=== PATIENT | male | born 1930 | race Caucasian/White ===

== ENCOUNTER 2016-07-25 10:16 | Observation (INO) ==
--- NOTE | 2016-07-25 10:37 | Emergency Department Note ---
Disposition Clinical Impression: Elevated INR, Hypokalemia, Elevated troponin I level, Acute on chronic renal failure Fall Qualifiers: Encounter type: initial encounter Qualified Code(s): W19.XXXA - Unspecified fall, initial encounter Disposition: Admitted As Inpatient Condition: Fair Time of Disposition: 13:00 Fall HPI - General Chief Complaint: ED Fall Stated Complaint: fall/back pain Time Seen by Provider: 07/25/16 10:20 Source: patient, EMS Mode of arrival: ambulatory Limitations: no limitations Nursing Notes Reviewed: Yes Vital Signs Reviewed: Yes - History of Present Illness HPI Narrative: 85-year-old male status post several falls. History of Coumadin, A. fib, has a pacemaker AV paced. Patient had a fall last week, on Thursday 6 days ago, struck his left flank. His try to help him up and he actually pulled her cane according to his home health aide. She then proceeded to fall on him. He did have another mechanical fall yesterday, this was unwitnessed, he states he slipped on the floor mat his bathroom. He landed striking his left flank, the same spot that was previously injured. His pain is 6 out of 10, hurts with movement, crampy and sharp, localized this to about the area of his 12th rib. He is on Coumadin has not reported any abdominal pain, no chest pain or shortness of breath. Pt Subjective Complaint: fall Onset (ago): day(s) Fall Witnessed: yes Place Fall Occurred: home Loss of Consciousness: none Prolonged Down Time?: no Symptoms Prior to Fall: none Location of injury: abdomen Severity: moderate Severity scale (1-10): 6 Quality: aching Associated symptoms (after fall): Reports: denies - Related Data Home Medications Medication Instructions Recorded Confirmed Atorvastatin [Lipitor] 40 mg PO HS 06/08/15 07/25/16 Gabapentin [Neurontin] 600 mg PO HS 06/08/15 07/25/16 Garlic 1,000 mg PO DAILY 06/08/15 07/25/16 Lisinopril [Zestril] 20 mg PO DAILY 06/08/15 07/25/16 Loratadine [Claritin] 10 mg PO DAILY PRN 06/08/15 07/25/16 Metoprolol [Lopressor] 50 mg PO BID 06/08/15 07/25/16 Multivitamin [Flintstones] 1 each PO DAILY 06/08/15 07/25/16 [place]-3S/Dha/Epa/Fish Oil [Fish 1 each PO DAILY 06/08/15 07/25/16 Oil 1,200 mg Softgel] Tamsulosin [Flomax] 0.4 mg PO BID 06/08/15 07/25/16 Montelukast [Singulair] 10 mg PO HS 11/05/15 07/25/16 Fluticasone Propionate Nasal 50 mcg NS DAILY 11/09/15 07/25/16 [Flonase] Latanoprost 1 drop BOTH EYES HS 11/28/15 07/25/16 Acetaminophen [Tylenol] 650 mg PO Q6HR PRN 02/11/16 07/25/16 Amlodipine Besylate 10 mg PO DAILY 06/12/16 07/25/16 Ceramides 1,3,6-11 [Cerave] 1 appl TP BID 06/12/16 07/25/16 Ferrous Sulfate 325 mg PO DAILY 06/12/16 07/25/16 Furosemide [Lasix] 80 mg PO BID 06/12/16 07/25/16 Hydroxyzine HCl 25 mg PO Q8H PRN 06/12/16 07/25/16 Warfarin [Coumadin] 2.5 mg PO SUTUTHSA 06/13/16 07/25/16 Warfarin [Coumadin] 5 mg PO MOWEFR 07/25/16 07/25/16 Previous Rx's Medication Instructions Recorded Isosorbide MONOnitrate (24 HR) 30 mg PO DAILY 30 Days 11/07/15 [Imdur] Allergies Allergy/AdvReac Type Severity Reaction Status Date / Time clopidogrel [From Plavix] Allergy Itching Verified 05/06/16 09:07 Cortisone Allergy Joint Pain Verified 05/06/16 09:07 Review of Systems: A 14 point ROS was obtained and was negative except as per below or as documented in the HPI. Constitutional: Denies: fever, chills, weakness, weight change Eyes: Denies: eye pain, eye discharge, vision change ENT: Denies: ear pain, throat pain, hearing loss, epistaxis, congestion, Cardiovascular: Denies: chest pain, palpitations, dyspnea on exertion, edema, syncope Respiratory: Denies: cough, dyspnea, wheezes, hemoptysis, stridor Gastrointestinal: Denies: abdominal pain, nausea, vomiting. diarrhea, constipation, hematemesis, hematochezia Genitourinary: Denies: urgency, dysuria, frequency, hematuria Musculoskeletal: Left flank pain,/left posterior rib pain Denies: neck pain, arthralgia, myalgia Integumentary: Denies: rash, abrasion, lesions Neurological: Denies: headache, weakness, numbness, paresthesias, confusion, abnormal gait Psychiatric: Denies: anxiety, depression, suicidal thoughts, homicidal thoughts , Endocrine: Denies: fatigue Hematological/Lymphatic: Denies: easy bleeding, easy bruising Allergic/Immunologic: Denies: facial swelling, urticaria All systems ED: reviewed and negative except as stated. Fall PMH - Past Medical History Medical history: Reports: atrial fibrillation, CHF, coronary artery disease, hyperlipidemia, hypertension, myocardial infarction, peripheral artery disease, renal disease, other Surgical history: Reports: coronary bypass (CABG), pacemaker/AICD, other Psychiatric history: Reports: no psych history - Social History Smoking Status: Never smoker Alcohol use: Reports: none Drug use: Reports: none Physical Exam General: alert and oriented, cachectic elderly male Head: NCAT, no lesions Eyes: sclera anicteric, conjunctiva normal, PERRLA bilaterally, EOMI Bilaterally Ears: normal inspection, external ear wnl Nose: nasal septum nondeviated, sinuses nontender Throat: good dentition, mucous membranes moist Neck: no lymphadenopathy, trachea midline no deviation, no JVD Resp: CTA bilaterally, no resp distress, symmetric chest rise, no wheezes, rales , or rhonchi bilaterally CV: Regular with PVCS,Pacemaker patent left chest ,, normal S1 and S2, no m/g/r , Pulses +2 Rad, +2 DP/PT Abdomen: Soft, NTND, no hepatosplenomegaly, no hernias, Negative Rovsing's sign , Negative Tatum's sign Back: normal inspection,+ttp left back pain, Negative CVA tenderness bilaterally Neuro: A&O3, CN II-XII grossly intact bilaterally, no motor or sensory deficits bilaterally, gait normal, GCS 15 [id number] Ext: +Left back pain localized to the 12th rib, no ecchymosis and deformity Psych: normal mood, normal affect Skin: No rashes, skin warm, dry, intact - General Limitations: no limitations General appearance: alert, in no apparent distress Course Vital Signs Temperature 97.7 F 07/25/16 10:18 Pulse Rate 60 07/25/16 10:18 Respiratory Rate 16 07/25/16 10:18 Blood Pressure 124/68 07/25/16 10:18 O2 Sat by Pulse Oximetry 96 07/25/16 10:18 Temperature 97.7 F 07/25/16 10:18 Pulse Rate 81 07/25/16 12:41 Respiratory Rate 18 07/25/16 14:13 Blood Pressure 116/71 07/25/16 14:13 O2 Sat by Pulse Oximetry 96 07/25/16 12:41 Oxygen Delivery Oxygen Delivery Room Air Fall - MDM Narrative Medical decision making narrative: 85-year-old male with fall, Coumadin coagulopathy, high elevated INR, hypokalemia, admitted to medicine service in stable condition - Differential Diagnosis Likely: syncope, traumatic injury, arrhythmia, assault, seizure - Medical Records Medical records reviewed: Yes I reviewed the patient's medical records. - Lab Data Lab results reviewed: Yes I reviewed the patient's lab results. Result diagrams: 07/25/16 11:40 07/25/16 11:40 Lab Results 07/25/16 07/25/16 07/25/16 Range/Units 11:40 11:40 11:40 WBC 6.3 (4.3-11.1) K/mcL RBC 3.76 L (4.19-5.50) M/mcL Hgb 10.5 L (12.9-16.9) g/dL Hct 31.5 L (37.5-50.1) % MCV 83.8 (83.0-100.0) fL MCH 27.9 L (28.0-33.3) pg MCHC 33.3 (31.6-35.5) g/dL RDW 17.2 H (11.5-14.5) % Plt Count 127 L (140-400) K/mcL MPV 12.1 (9.4-12.4) fL Immature Gran % 0.3 (0-4) % Seg Neutrophils % 77.9 % Lymphocytes % 9.7 % Monocytes % 9.2 % Eosinophils % 2.7 % Basophils % 0.2 % Neutrophils # 4.9 (1.6-8.9) K/mcL Lymphocytes # 0.6 (0.6-4.6) K/mcL Monocytes # 0.6 (0.0-1.3) K/mcL Eosinophils # 0.2 (0.0-0.6) K/mcL Basophils # 0.0 (0.0-0.2) K/mcL PT 74.9 H* (9.4-12.1) Seconds INR 6.5 H* APTT 52.7 H (26.0-36.0) Seconds Sodium 129 L (136-145) mEq/L Potassium 2.4 L* (3.5-4.5) mEq/L Chloride 84 L (98-109) mEq/L Carbon Dioxide 36 H (19-29) mEq/L BUN 101 H (8-26) mg/dL Creatinine 3.48 H (0.72-1.25) mg/dL Est GFR ( Amer) 20 L (> 60) Est GFR (Non-Af Amer) 17 L (> 60) BUN/Creatinine Ratio 29 H (6-26) Glucose 104 H (70-99) mg/dL POC Glucose (58-89) Calculated Osmolality 300 (280-300) Calcium 8.9 (8.6-10.8) mg/dL Troponin I (0-0.03) ng/mL 07/25/16 07/25/16 Range/Units 11:40 11:53 WBC (4.3-11.1) K/mcL RBC (4.19-5.50) M/mcL Hgb (12.9-16.9) g/dL Hct (37.5-50.1) % MCV (83.0-100.0) fL MCH (28.0-33.3) pg MCHC (31.6-35.5) g/dL RDW (11.5-14.5) % Plt Count (140-400) K/mcL MPV (9.4-12.4) fL Immature Gran % (0-4) % Seg Neutrophils % % Lymphocytes % % Monocytes % % Eosinophils % % Basophils % % Neutrophils # (1.6-8.9) K/mcL Lymphocytes # (0.6-4.6) K/mcL Monocytes # (0.0-1.3) K/mcL Eosinophils # (0.0-0.6) K/mcL Basophils # (0.0-0.2) K/mcL PT (9.4-12.1) Seconds INR APTT (26.0-36.0) Seconds Sodium (136-145) mEq/L Potassium (3.5-4.5) mEq/L Chloride (98-109) mEq/L Carbon Dioxide (19-29) mEq/L BUN (8-26) mg/dL Creatinine (0.72-1.25) mg/dL Est GFR ( Amer) (> 60) Est GFR (Non-Af Amer) (> 60) BUN/Creatinine Ratio (6-26) Glucose (70-99) mg/dL POC Glucose 108 H (58-89) Calculated Osmolality (280-300) Calcium (8.6-10.8) mg/dL Troponin I 0.15 H* (0-0.03) ng/mL - Radiology Data Radiology results reviewed: Yes I reviewed the patient's radiology results. Abdomen/Pelvis CT 07/25/16 10:33 IMPRESSION: No acute traumatic injuries identified. There is moderate ascites, cirrhosis, gallstones, atrophic right kidney. D/ / Chele Bansal MD / Chele Bansal MD Interpreting Provider: Chele Bansal MD Chest CT 07/25/16 10:33 IMPRESSION: No acute traumatic injuries identified. There is moderate ascites, cirrhosis, gallstones, atrophic right kidney. D/ / Chele Bansal MD / Chele Bansal MD Interpreting Provider: Chele Bansal MD Chest X-Ray 07/25/16 10:33 IMPRESSION: No acute cardiopulmonary disease D/ / Blane Fontanez MD / Blane Fontanez MD Interpreting Provider: Blane Fontanez MD Head CT 07/25/16 10:34 IMPRESSION: No acute intracranial abnormality. D/ / Prakash Puentes MD / Prakash Puentes MD Interpreting Provider: Prakash Puentes MD - EKG Data EKG attestation: Yes I reviewed and interpreted this EKG. EKG results narrative: 72 bpm MI 194 QRS 183 QTC 47 electronic atrial and ventricular paced. EKG shows normal: sinus rhythm Interpretation: no acute changes - Core Measures AMI Core Measures Followed: No Attestation Statement - Attestation Attestation: I examined this patient and my medical decision-making was reviewed with the [employer] COORDINATOR/PA/Advanced Practice Nurse/Resident Physician. I agree with the documented findings, disposition and treatment plan as described except to the extent set forth below. Patient to the emergency department with a chief complaint of a fall. Patient states she tripped over a rug. Complaining of pain in his back. Denies hitting his head or loss of consciousness. On exam he has tenderness over the left inferior ribs posteriorly. Abdomen firm. Nontender. Lungs clear. Alert and appropriate. Plan. The patient has a low potassium. He also has an elevated INR of 6. Likely observation. Imaging negative for any fractures or organ injury. Troponin elevated. No aspirin given secondary to the patient's elevated INR, fall, and potential for delayed bleeding.
[2016-07-25 12:07] LABS: Basophils % 0.2 %; Eosinophils # 0.2 K/mcL (0.0-0.6); Eosinophils % 2.7 %; Hematocrit 31.5 % (37.5-50.1); Hemoglobin 10.5 g/dL (12.9-16.9); Immature Granulocytes % 0.3 % (0-4); Lymphocytes # 0.6 K/mcL (0.6-4.6); Lymphocytes % 9.7 %; Mean Corpuscular HGB Conc 33.3 g/dL (31.6-35.5); Mean Corpuscular Hemoglobin 27.9 pg (28.0-33.3); Mean Corpuscular Volume 83.8 fL (83.0-100.0); Mean Platelet Volume 12.1 fL (9.4-12.4); Monocytes # 0.6 K/mcL (0.0-1.3); Monocytes % 9.2 %; Neutrophils # 4.9 K/mcL (1.6-8.9); Platelet Count 127 K/mcL (140-400); Red Blood Count 3.76 M/mcL (4.19-5.50); Red Cell Distribution Width 17.2 % (11.5-14.5); Segmented Neutrophils % 77.9 %
[2016-07-25 12:15] LABS: Activated Partial Thrombo Time 52.7 Seconds (26.0-36.0)
[2016-07-25 12:17] LABS: INR 6.5; Prothrombin Time 74.9 Seconds (9.4-12.1)
[2016-07-25 12:19] LABS: Calcium 8.9 mg/dL (8.6-10.8)
[2016-07-25 12:25] LABS: Potassium 2.4 mEq/L (3.5-4.5)
[2016-07-25] MEDS ORDERED: Naloxone 0.4 MG/ML INJ IVP PRN (16:29)
[2016-07-25] MEDS ORDERED: Acetaminophen 325 MG TABLET PO PRN (16:29)
[2016-07-25] MEDS ORDERED: Ondansetron 4 MG/2 ML VIAL IVP PRN (16:29)
[2016-07-25] MEDS ORDERED: Furosemide 40 MG TABLET PO SCH (17:00)
[2016-07-25 18:36] LABS: Potassium 3.3 mEq/L (3.5-4.5)
[2016-07-25 18:37] LABS: Calcium 8.7 mg/dL (8.6-10.8)
--- NOTE | 2016-07-25 18:48 | Internal Med History&Physical ---
Date of Encounter: 07/25/16 Time of Encounter: 16:00 Assessment and Plan (1) Frequent falls Current visit: Yes Status: Chronic Patient is at an increased risk of intracranial and other internal bleeds due to being on Coumadin and sustaining frequent falls. Physical therapy evaluation. Patient may need placement in a [facility] facility. Fall precautions. (2) Supratherapeutic INR Current visit: Yes Status: Acute Patient is noted to be on Coumadin for chronic atrial fibrillation. He does follow in Coumadin clinic and INR about 8 days back was 2.6. INR today is noted to be 6.5 with no overt bleeding. Hold off on vitamin K at this time and hold Coumadin. Continue to monitor INR. (3) Acute on chronic renal failure Current visit: Yes Status: Acute Patient is noted to have slight worsening of renal function, probably due to dehydration. Continue to monitor serum creatinine and avoid contrast at new nephrotoxic agents. He does have chronic kidney disease stage IV. (4) Elevated troponin I level Current visit: Yes Status: Acute This is likely due to demand ischemia, renal dysfunction and falls. Continue telemetry monitoring and treatment troponins at this time. (5) Hypokalemia Current visit: Yes Status: Acute Likely related to poor oral intake and diuretic use. Supplement with oral and IV potassium chloride and repeat potassium. (6) CHF (congestive heart failure) Current visit: Yes Status: Chronic Resume home meds. Qualifiers: Congestive heart failure type: systolic Congestive heart failure chronicity : chronic Qualified Code(s): I50.22 - Chronic systolic (congestive) heart failure (7) CKD (chronic kidney disease), stage IV Current visit: Yes Status: Chronic (8) CAD (coronary artery disease) Current visit: Yes Status: Chronic Qualifiers: Coronary Disease-Associated Artery/Lesion type: bypass graft [place] vs. transplanted heart: [place] heart Associated angina: with stable angina Qualified Code(s): I25.709 - Atherosclerosis of coronary artery bypass graft(s) , unspecified, with unspecified angina pectoris (9) HTN (hypertension) Current visit: Yes Status: Chronic Qualifiers: Hypertension type: essential hypertension Qualified Code(s): I10 - Essential (primary) hypertension (10) PAD (peripheral artery disease) Current visit: Yes Status: Chronic Internal Medicine - H&P: HPI Chief complaint: Frequent falls Admitted From: Emergency Dept Plans for Post Hospital Care: Home History of present illness: Mr. King is a 85 year old male with multiple medical problems was brought in by family due to recurrent frequent falls. Patient's home health aide reported that he fell down last week, his tried to help him when he accidentally grabbed her cane and she fell on him, and he hurt his left flank area. This morning he again had a mechanical fall by tripping over his rug and fell on the same site and reports severe pain in his left lower rib cage and flank area. He sustained some bruising on his left arm and forearm but no overt bleeding. No reported head trauma, blurred vision, nausea, vomiting, loss of consciousness. He is noted to be on Coumadin for atrial fibrillation with a high INR. He is able to ambulate with a cane and walker as needed, at baseline. Past Med Surg Social Fam HX - Past Medical History Medical history: atrial fibrillation, CHF, coronary artery disease, hyperlipidemia, hypertension, myocardial infarction, peripheral artery disease, renal disease, other Psychiatric history: no psych history - Past Surgical History Surgical History: coronary bypass (CABG), pacemaker/AICD, other - Social History Smoking Status: Never smoker Smokeless Tobacco Status: No Alcohol use: none Drug use: none Occupational status: retired Current living situation: Home, With Family Activity Level: Uses cane/walker Recent Out of Country Travel Within the Last 8 Weeks: No Exposure or Possible Exposure to Illness During Travel: No - Family History Father History Unknown: Yes Living Status: Hx Family Cardiac Disorders: Yes Hx Family Endocrine Disorder: Yes Internal Medicine - H&P: Meds Atorvastatin [Lipitor] 40 mg PO HS 06/08/15 [History] Gabapentin [Neurontin] 600 mg PO HS 06/08/15 [History] Garlic 1,000 mg PO DAILY 06/08/15 [History] Lisinopril [Zestril] 20 mg PO DAILY 06/08/15 [History] Loratadine [Claritin] 10 mg PO DAILY PRN 06/08/15 [History] Metoprolol [Lopressor] 50 mg PO BID 06/08/15 [History] Multivitamin [Flintstones] 1 each PO DAILY 06/08/15 [History] [place]-3S/Dha/Epa/Fish Oil [Fish Oil 1,200 mg Softgel] 1 each PO DAILY 06/08/15 [ History] Tamsulosin [Flomax] 0.4 mg PO BID 06/08/15 [History] Montelukast [Singulair] 10 mg PO HS 11/05/15 [History] Isosorbide MONOnitrate (24 HR) [Imdur] 30 mg PO DAILY 30 Days 11/07/15 [Rx] Fluticasone Propionate Nasal [Flonase] 50 mcg NS DAILY 11/09/15 [History] Latanoprost 1 drop BOTH EYES HS 11/28/15 [History] Acetaminophen [Tylenol] 650 mg PO Q6HR PRN 02/11/16 [History] Amlodipine Besylate 10 mg PO DAILY 06/12/16 [History] Ceramides 1,3,6-11 [Cerave] 1 appl TP BID 06/12/16 [History] Ferrous Sulfate 325 mg PO DAILY 06/12/16 [History] Furosemide [Lasix] 80 mg PO BID 06/12/16 [History] Hydroxyzine HCl 25 mg PO Q8H PRN 06/12/16 [History] Warfarin [Coumadin] 2.5 mg PO SUTUTHSA 06/13/16 [History] Warfarin [Coumadin] 5 mg PO MOWEFR 07/25/16 [History] Allergies clopidogrel [From Plavix] Allergy (Verified 05/06/16 09:07) Itching Cortisone Allergy (Verified 05/06/16 09:07) Joint Pain All Systems PM: A 10-system review of systems was performed and is negative for pertinent findings except as documented above in the HPI. - Constitutional Constitutional: no chills, no fever(s), no night sweats - EENT Eyes: no change in vision, no discharge, no pain, no photophobia Ears: no ear discharge, no ear pain, no tinnitus Nose, mouth and throat: no dysphagia, no nasal discharge, no neck pain, no sore throat - Cardiovascular Cardiovascular ROS IM: no chest pain, no diaphoresis, no dyspnea, no lightheadedness, no palpitations, no syncope - Respiratory Respiratory: no cough, no dyspnea, no wheezing, no excessive phlegm production - Gastrointestinal Gastrointestinal: no abdominal pain, no diarrhea, no hematemesis, no hematochezia, no melena, no nausea, no vomiting - Musculoskeletal Musculoskeletal ROS IM: no numbness, no tingling - Integumentary Integumentary IM: no rash, no unusual bruising - Neurological Neurological ROS: frequent falls - Hematologic/Lymphatic Hematologic/Lymphatic: no easy bruising - Constitutional Vitals: Temp Pulse Resp BP Pulse Ox 97.2 F L 59 16 127/60 98 07/25/16 15:35 07/25/16 15:35 07/25/16 15:35 07/25/16 15:35 07/25/16 15:35 General appearance: Present: A&O X 2, answers questions appropriately (Very hard of hearing but is oriented) - Head Head exam: Present: atraumatic, normocephalic - Neck Neck exam general surgery: Present: supple, trachea midline. Absent: lymphadenopathy - Respiratory Respiratory exam: Present: CTAB. Absent: accessory muscle use, rales, rhonchi, wheezes Additional comments: pigeon chest - Cardiovascular Cardiovascular exam: Present: irregular rhythm, +S1, +S2. Absent: diastolic murmur, gallop, rubs, systolic murmur - GI/Abdominal GI/Abdominal exam: Present: normal bowel sounds, soft (Nontender and nondistended), no peritoneal signs. Absent: distended, tenderness - Extremities Exam Extremities exam: Present: pedal edema, warm, radial pulses palpable and symetrical. Absent: calf tenderness, cyanotic Additional comments: Ecchymosis and contusion on left lateral arm and left forearm below the elbow - Neurological Exam Neurological exam: Present: CN II-XII intact, oriented X3, strengths equal and symetr throughout (Diffusely decreased bilateral lower extremities). Absent: pronater drift, facial droop, speech deficit - Skin Skin exam: Present: dry, intact Internal Med - H&P Results - Labs CBC & Chem 7: 07/26/16 07:02 07/25/16 18:12 Labs: BMP 07/25/16 18:12 Sodium 129 L Potassium 3.3 L Chloride 84 L Carbon Dioxide 35 H BUN 100 H Creatinine 3.44 H Glucose 126 H Calcium 8.7 Cardiac Enzymes 07/25/16 Range/Units 17:13 Troponin I 0.13 H* (0-0.03) ng/mL - EKG Data -: EKG Interpreted by Myself - EKG Data Prior EKG available for review: yes When compared to previous EKG: there is no significant change EKG comments: 07/26/16 08:17 Atrial and ventricular paced rhythm
[2016-07-25] MEDS: Gabapentin 300 MG CAPSULE PO SCH (22:00)
[2016-07-25] MEDS: CERAMIDES TP SCH (22:00)
[2016-07-25] MEDS: Latanoprost 2.5 ML BOTTLE BOTH EYES SCH (22:01)
[2016-07-26 07:29] LABS: Basophils % 0.3 %; Eosinophils # 0.1 K/mcL (0.0-0.6); Hematocrit 31.4 % (37.5-50.1); Hemoglobin 10.9 g/dL (12.9-16.9); Immature Granulocytes % 0.3 % (0-4); Lymphocytes # 0.7 K/mcL (0.6-4.6); Lymphocytes % 10.9 %; Mean Corpuscular HGB Conc 34.7 g/dL (31.6-35.5); Mean Corpuscular Hemoglobin 28.8 pg (28.0-33.3); Mean Corpuscular Volume 83.1 fL (83.0-100.0); Mean Platelet Volume 12.6 fL (9.4-12.4); Monocytes # 0.6 K/mcL (0.0-1.3); Monocytes % 9.1 %; Platelet Count 126 K/mcL (140-400); Red Blood Count 3.78 M/mcL (4.19-5.50); Red Cell Distribution Width 17.2 % (11.5-14.5); Segmented Neutrophils % 77.4 %
[2016-07-26 08:03] LABS: INR 5.6; Prothrombin Time 63.2 Seconds (9.4-12.1)
[2016-07-26] MEDS ORDERED: *HR* Phytonadione 5 MG TABLET PO ONE (08:08)
[2016-07-26] MEDS ORDERED: 0.9 % Sodium Chloride 1,000 ML IVC SCH (08:15)
[2016-07-26] MEDS: Multivit/Ca/Min/Fe/FA 1 TAB TABLET PO SCH (08:17)
[2016-07-26] MEDS: Fluticasone Propionate Nasal 50 MCG/SPRAY BOTTLE NS SCH (08:18)
[2016-07-26] MEDS: CERAMIDES TP SCH ×2 (08:19→21:06)
[2016-07-26] MEDS: DHA PO SCH (08:19)
[2016-07-26] MEDS: OMEGA PO SCH (08:19)
[2016-07-26] MEDS: EPA PO SCH (08:19)
[2016-07-26] MEDS: FISH OIL PO SCH (08:19)
--- NOTE | 2016-07-26 08:22 | Internal Med Progress Note ---
Date of Encounter: 07/26/16 Time of Encounter: 08:00 - Assessment and plan (1) Acute on chronic renal failure Current Visit: Yes Status: Acute Assessment and plan: due to dehydration decrease oral intake, but also concern about hepato renal syndrome pt has hx of cirrhosis , will try fluid challenge and albumine, check UA renal ultrasound urinary protein and creatinine ratio, avoid hypotension nephrotoxic drugs (2) Supratherapeutic INR Current Visit: Yes Status: Acute Assessment and plan: no signs of active GI bleeding hold coumadin give vitamin K , believe pt is not a coumadin due to fall risk and end stage liver disease (3) Afib Current Visit: Yes Status: Chronic Assessment and plan: s/p pacemaker rate control , check echo to evaluate LVF Qualifiers: Atrial fibrillation type: permanent Qualified Code(s): I48.2 - Chronic atrial fibrillation (4) Cirrhosis Current Visit: Yes Status: Chronic Assessment and plan: unknown ethiology check hepatitis panel, FLP, Hemochromatosis Qualifiers: Hepatic cirrhosis type: unspecified hepatic cirrhosis Qualified Code(s): K74.60 - Unspecified cirrhosis of liver (5) Encephalopathy Current Visit: Yes Status: Chronic Assessment and plan: probable hepatic start lactulose/ rifaximin, follow ammonia level - Time Spent With Patient 25 - 35 minutes - Subjective Interval history: Pt confused , but alert - Constitutional Vitals: Temp Pulse Resp BP Pulse Ox 97.2 F L 59 14 118/67 95 07/26/16 07:36 07/26/16 07:36 07/26/16 07:36 07/26/16 07:36 07/26/16 07:36 General appearance: Present: cachectic, A&O X 2, answers questions appropriately (Very hard of hearing but is oriented) - Respiratory Respiratory exam: Present: decreased breath sounds - Cardiovascular Cardiovascular exam: Present: irregular rhythm Additional comments: OMAR 2/6 in RUSB - GI/Abdominal GI/Abdominal exam: Present: hepatomegaly, soft, splenomegaly Additional comments: + asciitis - Extremities Exam Additional comments: edema ++ - Neurological Exam Neurological exam: Present: alert Additional comments: no focal deficits but pt oriented to person only Internal Medicine: Result - Labs CBC & Chem 7: 07/26/16 07:02 07/25/16 18:12 Labs: Short CBC 07/26/16 Range/Units 07:02 WBC 6.4 (4.3-11.1) K/mcL Hgb 10.9 L (12.9-16.9) g/dL Hct 31.4 L (37.5-50.1) % Plt Count 126 L (140-400) K/mcL Neutrophils # 5.0 (1.6-8.9) K/mcL BMP 07/25/16 18:12 Sodium 129 L Potassium 3.3 L Chloride 84 L Carbon Dioxide 35 H BUN 100 H Creatinine 3.44 H Glucose 126 H Calcium 8.7 Cardiac Enzymes 07/25/16 07/25/16 07/26/16 Range/Units 17:13 23:14 07:02 Troponin I 0.13 H* 0.14 H* 0.14 H* (0-0.03) ng/mL - ABG Interpretation ABG results: PT/INR, D-dimer PT 63.2 Seconds (9.4-12.1) H* 07/26/16 07:02 Consult Discharge Plan - Plan Referrals: Roberta Berrios MD [Primary Care Provider] -
[2016-07-26] MEDS: 0.9 % Sodium Chloride 1,000 ML IVC SCH ×2 (08:37→19:00)
[2016-07-26] MEDS ORDERED: amLODIPine 5 MG TABLET PO SCH (09:00)
[2016-07-26] MEDS ORDERED: Isosorbide MONOnitrate (24 HR) 30 MG TAB.ER.24H PO SCH (09:00)
[2016-07-26 09:03] LABS: Bilirubin,Urine Negative (Negative); Blood,Urine Small (Negative); Clarity,Urine Clear (Clear); Color,Urine Yellow (Yellow); Glucose,Urine (UA) Normal (Normal); Ketones,Urine Negative (Negative); Leukocyte Esterase,Urine Trace (Negative); Nitrite,Urine Negative (Negative); Protein,Urine 30 mg/dL (Neg-Trace); Specific Gravity,Urine 1.011 (1.010-1.025); Urobilinogen,Urine Normal (Normal)
[2016-07-26 09:06] LABS: Bacteria,Urine None Seen per hpf (None-Few); Hyaline Casts,Urine None Seen per lpf (None-Few); Squamous Epithelial Cell,Urine Moderate per lpf (None-Few)
[2016-07-26 09:18] LABS: Protein/Creatinine Ratio,Urine 0.34 mg/mg (0-0.20)
[2016-07-26 09:30] LABS: Hepatitis B Surface Antigen Nonreactive (Nonreactive)
[2016-07-26] MEDS: Lactulose Oral Soln 20 GM/30 ML UDC PO SCH ×2 (11:09→21:00)
--- NOTE | 2016-07-26 13:40 | Venous Imaging Report ---
LE Venous Duplex Patient Name:Roman King Order Number:[id number] Procedure Date:07/26/2016 Date:2Age:85 yrs Gender:Male Location:[facility] Room #: 2A11 Cruise Agent:Nedra Miller Referring MD:Juanita Kim MD credit card associate:Roberta Berrios MD Reading MD:Manoj Renae MD Primary Indications:DVT Secondary Indications: Impressions: Left lower extremity: normal superficial and deep exam. Recommendations: After imaging the patient returned to their room. Findings Venous Duplex Results: Left: Venous imaging of the lower extremity reveals full patency and normal vessel compressibility of the left distal iliac, left common femoral, left superficial femoral, left popliteal, left posterior tibial, left peroneal, left great saphenous and left lesser saphenous. Doppler signals in the evaluated veins were normal. Prior Study: No prior study available for comparison. Lower Extremity Venous Duplex Side Vein Compress Spontaneous Flow Augment Diameter (cm) Depth (cm) Left Distal Iliac Normal Yes Phasic Yes Left Common Femoral Normal Yes Phasic Yes Left Superficial Femoral Normal Yes Phasic Yes Left Popliteal Normal Yes Phasic Yes Left Posterior Tibial Normal Yes Phasic Yes Left Peroneal Normal Yes Phasic Yes Left Great Saphenous Normal Yes Phasic Yes Left Lesser Saphenous Normal Yes Phasic Yes Updated by Manoj Renae MD on 07/26/2016 1:34:19 PM electronically signed on 07/26/2016 1:34:34 PM with status of Final
--- NOTE | 2016-07-26 14:28 | ECHO - Doppler Report ---
Echocardiogram Name: Roman King Date of Study: 07/26/2016 Date: 1930 Ht: 75.0 in Medical Record#: [id number] Age: 85 Wt: 197.0 lb Gender: Male BSA: 2.18 Order #: [id number] Location: [facility] Room #: 2A11 Reading Physician: Erin Cleaning DO Final Assembly Worker: Nedra Miller Ordering Physician: Juanita Kim MD Primary Physician: Roberta Berrios MD Indications: Shortness of breath Impressions: Paced rhythm with occasional PVCs. LV systolic function is moderately reduced, EF 35%. Unable to fully evaluate wall motion due to PVCs. RV is moderate to severely dilated with mild reduction in function. Similar in appearance to most recent echo. Moderate to severe TR by color flow. Moderate mitral regurgitation. Mild aortic regurgitation. Suboptimal TR gradient to estimate pulmonary hypertension. Left Ventricular Wall Motion: Rest Echo Findings The apex, apical inferior, mid inferior, basal inferior, apical anterior, mid anterior, basal anterior, apical septal, mid inferior septal, basal inferior septal, apical lateral, mid anterior lateral, basal anterior lateral, mid anterior septal, mid inferior lateral, basal anterior septal and basal inferior lateral eckert were hypokinetic. Findings: Study Quality * Technically sub-optimal due to poor echocardiographic windows. ECG Findings * Paced rhythm, ventricular ectopy. Left Ventricle * Indeterminate diastolic function. * LV function visually appears moderate reduced, EF 35%. * LV size and wall thickness are normal. Left Atrium * Severely dilated left atrium. Mitral Valve * Moderate mitral regurgitation. * Moderate mitral annular calcification * Mildly calcified mitral valve leaflets. * No mitral stenosis. Aortic Valve * Trileaflet aortic valve. * Mildly calcified aortic valve leaflets. * No aortic stenosis. * Mild aortic regurgitation. Tricuspid Valve * Tricuspid valve not well visualized. * Moderate-severe tricuspid regurgitation. Pulmonic Valve * Pulmonic valve is not well visualized. * No pulmonic stenosis. * Mild-moderate pulmonic regurgitation. Pulmonary Artery * Pulmonary artery not well visualized. Right Ventricle * Dilated RV with mild reduction in function. Right Atrium * Severely dilated right atrium. Interatrial Septum * Interatrial septum not well evaluated. IVC * The IVC is not well evaluated. History Hypertension Hypercholesteremia Family History of CAD History of CAD/PTCA Myocardial Infarction Coronary Artery Bypass Graft Congestive Heart Failure Pacer/ICD Implant Valvular Disease 02/11/2016 a Previous Echo was performed. Measurements: BP: 118/ 67 2D Normal Values IVSd: .99 cm 0.6 - 1.0 cm LVIDd: 5.23 cm 3.7 - 5.6 cm LVPWd: 1.10 cm 0.6 - 1.1 cm LVIDs: 3.21 cm 1.5 - 3.6 cm AO: 3.10 cm < 4.0 cm LA: 5.80 cm 2.0 - 4.0cm %FS: 38.60 cm >25 % LVOT Diam: 3.30 cm LA volume: 65 Mitral Valve Peak E:1.01 m/sec Peak E' Lat Sanjeev:11.3 cm/s Peak E' Med Sanjeev:3.01 cm/s E/E' Lat Ratio:8.9 E/E' Med Ratio:33.6 Aortic Valve AI pressure Half-time: 701.00 msec Tricuspid Valve TV Regurg Peak Grad: 10.00mmHg TV Regurg Peak Sanjeev: 1.61m/sec Updated by Erin Cleaning on 07/26/2016 12:37:53 PM electronically signed on 07/26/2016 2:23:02 PM with status of Final Wall Motion [place]: 1=Normal, 2=Hypokinesis, 3=Akinesis, 4=Dyskinesis, 5=Aneurysmal, 6=Hyperkinetic, X=Not Visualized (Blank)=Missing
[2016-07-26] MEDS: Gabapentin 300 MG CAPSULE PO SCH (21:00)
[2016-07-26] MEDS: Latanoprost 2.5 ML BOTTLE BOTH EYES SCH (21:05)
[2016-07-27] MEDS: 0.9 % Sodium Chloride 1,000 ML IVC SCH (04:46)
[2016-07-27 05:50] LABS: Albumin 2.4 g/dL (3.5-5.0); Albumin/Globulin Ratio 0.5 (1.1-2.2); Bilirubin,Total 2.7 mg/dL (0.2-1.2); Calcium 8.3 mg/dL (8.6-10.8); Globulin 4.5 g/dL (2.4-3.5); Potassium 2.9 mEq/L (3.5-4.5); Total Protein 6.9 g/dL (6.0-8.3)
--- NOTE | 2016-07-27 07:57 | Internal Med Progress Note ---
Date of Encounter: 07/27/16 Time of Encounter: 07:55 - Assessment and plan (1) Hepatic encephalopathy Current Visit: Yes Status: Acute Assessment and plan: Cirrhosis of unknown etiology. Continues to have worsening mental status along with worsening serum ammonia levels. Increase lactulose to 3 times a day dosing and monitor closely. Supportive care and fall precautions. (2) Frequent falls Current Visit: Yes Status: Chronic Assessment and plan: Physical therapy evaluation pending, patient likely requires placement in extended care facility. Have been trying to reach patient's son to confirm CODE STATUS but unsuccessful so far. Patient confirmed to me at the time of admission That he wanted to be DNR/DNI. (3) Hematuria Current Visit: Yes Status: Acute Assessment and plan: Hematuria due to traumatic Guerrero removal by the patient due to hepatic encephalopathy. Continue to pass blood tinged urine in 2 Guerrero bag along with passing blood clots at the urethral meatus. Consulted urology, will follow-up recommendations. No evidence of clot obstruction at this time. Treat underlying supratherapeutic INR with vitamin K. Monitor hemoglobin closely. (4) Supratherapeutic INR Current Visit: Yes Status: Acute Assessment and plan: INR noted to be improving, received a dose of vitamin K. However, throughout the day he should continue to have hematuria along with passing blood clots from urethral meatus. We will give another dose of vitamin K 2.5 mg. (5) Acute on chronic renal failure Current Visit: Yes Status: Chronic Assessment and plan: Less likely hepatorenal syndrome. Could be related to medications including diuretics, CALVIN inhibitor. Nephrology consult for further management. We will hold Lasix, CALVIN inhibitor for now. Will also hold IV albumin. (6) Elevated troponin I level Current Visit: Yes Status: Acute Assessment and plan: Troponin level noted to be trending down. Likely related to demand ischemia and fall. (7) Hypokalemia Current Visit: Yes Status: Acute Assessment and plan: Supplement with oral potassium chloride, continue to monitor. (8) Cirrhosis of liver with ascites Current Visit: Yes Status: Chronic Qualifiers: Hepatic cirrhosis type: unspecified hepatic cirrhosis Qualified Code(s): K74.60 - Unspecified cirrhosis of liver (9) CHF (congestive heart failure) Current Visit: Yes Status: Chronic Assessment and plan: Repeat echocardiogram shows worsening ejection fraction of 35% along with right ventricular dilation, moderate to severe tricuspid regurgitation, moderate mitral regurgitation and pulmonary hypertension. 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 Qualifiers: Congestive heart failure type: systolic Congestive heart failure chronicity : chronic Qualified Code(s): I50.22 - Chronic systolic (congestive) heart failure (10) CKD (chronic kidney disease), stage IV Current Visit: Yes Status: Chronic (11) CAD (coronary artery disease) Current Visit: Yes Status: Chronic Qualifiers: Coronary Disease-Associated Artery/Lesion type: bypass graft [place] vs. transplanted heart: mi'kmaq heart Associated angina: with stable angina Qualified Code(s): I25.708 - Atherosclerosis of coronary artery bypass graft(s) , unspecified, with other forms of angina pectoris (12) HTN (hypertension) Current Visit: Yes Status: Chronic Qualifiers: Hypertension type: essential hypertension Qualified Code(s): I10 - Essential (primary) hypertension (13) PAD (peripheral artery disease) Current Visit: Yes Status: Chronic - Subjective Interval history: Noted to be drowsy, confused and unable to answer much; significant change since I saw him at admission; lying in bed; Guerrero noted to have blood-tinged urine; - Constitutional Vitals: Temp Pulse Resp BP Pulse Ox 97.3 F L 62 18 109/56 96 07/27/16 07:17 07/27/16 07:17 07/27/16 07:17 07/27/16 07:17 07/27/16 07:17 General appearance: Present: A&O X 0 (lethargic and somnolent) - Head Head exam: Present: atraumatic, normocephalic - Neck Neck exam general surgery: Present: supple, trachea midline. Absent: lymphadenopathy - Respiratory Respiratory exam: Present: decreased breath sounds (B/L bases). Absent: accessory muscle use, rales, rhonchi, wheezes - Cardiovascular Cardiovascular exam: Present: irregular rhythm, +S1, +S2. Absent: diastolic murmur, gallop, rubs, systolic murmur - GI/Abdominal GI/Abdominal exam: Present: distended, normal bowel sounds, soft (ascites noted , no tenderness), no peritoneal signs. Absent: tenderness - Extremities Exam Extremities exam: Present: pedal edema (worsening 3+ pedal edema, pitting, mainly in left LE, upto hip), warm, radial pulses palpable and symetrical. Absent: calf tenderness, cyanotic - Neurological Exam Neurological exam: Present: altered, no focal deficits. Absent: pronater drift , facial droop, speech deficit - Skin Skin exam: Present: dry, intact Internal Medicine: Result - Labs CBC & Chem 7: 07/28/16 04:06 07/28/16 04:06 Labs: BMP 07/27/16 05:27 Sodium 129 L Potassium 2.9 L Chloride 87 L Carbon Dioxide 28 BUN 102 H Creatinine 3.30 H Glucose 123 H Calcium 8.3 L Liver Function 07/27/16 Range/Units 05:27 Total Bilirubin 2.7 H (0.2-1.2) mg/dL AST 70 H (5-34) Units/L ALT 23 (0-55) Units/L Alkaline Phosphatase 147 H (38-126) Units/L Albumin 2.4 L (3.5-5.0) g/dL Urine 07/26/16 Range/Units 08:45 Urine Color Yellow (Yellow) Urine Clarity Clear (Clear) Urine pH 7.0 (5.0-8.0) pH Units Ur Specific [place] 1.011 (1.010-1.025) Urine Protein 30 H (Neg-Trace) mg/dL Urine Glucose (UA) Normal (Normal) mg/dL - ABG Interpretation ABG results: PT/INR, D-dimer PT 63.2 Seconds (9.4-12.1) H* 07/26/16 07:02 - Impressions Impressions Retroperitoneum Ultrasound 07/26/16 09:30 IMPRESSION: 1. Atrophic right kidney with compensatory hypertrophy of the left. 2. No evidence of hydronephrosis peer D/ / Jacky Del Castillo MD / Jacky Del Castillo MD Interpreting Provider: Jacky Del Castillo MD Consult Discharge Plan - Plan Instructions: Heart Failure (DC) Referrals: Paola Rushing, CRITICAL CARE EDUCATOR [Advanced Practice Nurse] - 08/04/16 11:00 am
[2016-07-27 08:22] LABS: Hematocrit 32.5 % (37.5-50.1); Hemoglobin 10.8 g/dL (12.9-16.9); Immature Platelets 7.3 % (1.1-6.1); Mean Corpuscular HGB Conc 33.2 g/dL (31.6-35.5); Mean Corpuscular Hemoglobin 28.3 pg (28.0-33.3); Mean Corpuscular Volume 85.3 fL (83.0-100.0); Mean Platelet Volume 13.3 fL (9.4-12.4); Platelet Count 116 K/mcL (140-400); Red Blood Count 3.81 M/mcL (4.19-5.50); Red Cell Distribution Width 17.6 % (11.5-14.5)
[2016-07-27 08:23] LABS: Lymphocytes # 0.6 K/mcL (0.6-4.6)
[2016-07-27] MEDS: Lactulose Oral Soln 20 GM/30 ML UDC PO SCH ×3 (08:32→21:31)
[2016-07-27] MEDS: Potassium Chloride Elixir 20 MEQ/15 ML UDC PO SCH ×2 (08:32→13:24)
[2016-07-27] MEDS: Multivit/Ca/Min/Fe/FA 1 TAB TABLET PO SCH (08:32)
[2016-07-27] MEDS: Fluticasone Propionate Nasal 50 MCG/SPRAY BOTTLE NS SCH (08:33)
[2016-07-27] MEDS: CERAMIDES TP SCH ×2 (08:33→21:32)
[2016-07-27] MEDS: OMEGA PO SCH (08:34)
[2016-07-27] MEDS: FISH OIL PO SCH (08:34)
[2016-07-27] MEDS: EPA PO SCH (08:34)
[2016-07-27] MEDS: DHA PO SCH (08:34)
[2016-07-27 08:49] LABS: Monocytes # 0.6 K/mcL (0.0-1.3); Neutrophils # 6.3 K/mcL (1.6-8.9); Platelet Estimate Slight Decrease (Normal)
[2016-07-27 08:50] LABS: Acanthocytes 1+ (Not Present); Hypochromasia Present (Not Present); Ovalocytes 1+ (Not Present); Polychromasia 1+ (Not Present); Target Cells 1+ (Not Present)
[2016-07-27 09:32] LABS: INR 3.6; Prothrombin Time 40.1 Seconds (9.4-12.1)
--- NOTE | 2016-07-27 12:18 | Nephrology Consult Note ---
Date of Encounter: 07/27/16 Time of Encounter: 12:13 Assessment and Plan (1) Acute on chronic renal failure Current Visit: Yes Status: Acute Patient with acute on chronic renal failure versus progression of his chronic renal failure. Baseline creatinine is around 3.0. At this time his creatinine seems to be trending back to baseline. Agree with holding diuretics and CALVIN inhibitor at this time. He will need cautious diuresis was his creatinine stabilizes. Avoid nephrotoxic agents and adjust his medications for renal function. I agree that he likely does not need albumin at this time. (2) Elevated troponin I level Current Visit: Yes Status: Acute We will defer to the primary team and cardiology. (3) CHF (congestive heart failure) Current Visit: Yes Status: Chronic Patient with volume overload state. He will need diuresis once his renal function has stabilized. Qualifiers: Congestive heart failure type: systolic Congestive heart failure chronicity : chronic Qualified Code(s): I50.22 - Chronic systolic (congestive) heart failure (4) Frequent falls Current Visit: Yes Status: Chronic We will defer to primary team. Consider PT/OT if not already ordered. (5) HTN (hypertension) Current Visit: Yes Status: Chronic Current blood pressures on the low side. I agree with holding antihypertensive medication at this time. Blood pressure medications can be reintroduced was his blood pressure starts to rise. Qualifiers: Hypertension type: essential hypertension Qualified Code(s): I10 - Essential (primary) hypertension History of Present Illness - Reason for Consult Consult date: 07/27/16 Acute Kidney Injury, Chronic Kidney Disease - Chief Complaint Frequent falls - History of Present Illness Mr. King is an 85 yo man with a history of CKD who presnts with frequent falls. History is obtained from the medical records as the patient is in deep slumber and difficult to awaken. Per records the patient presented with frequent falls and volume overload state. He was found to have a rise in his creatinine as well. Per previous documentation patient has CKD 4 with a baseline creatinine around 2.7 - 3.0. He was previously seen in the hospital by Dr. Owen. Past Med Surg Social Fam HX - Past Medical History Medical history: atrial fibrillation, CHF, coronary artery disease, hyperlipidemia, hypertension, myocardial infarction, peripheral artery disease, renal disease, other Psychiatric history: no psych history - Past Surgical History Surgical History: coronary bypass (CABG), pacemaker/AICD, other - Social History Smoking Status: Never smoker Smokeless Tobacco Status: No Alcohol use: none Drug use: none - Family History Father History Unknown: Yes Living Status: Hx Family Cardiac Disorders: Yes Hx Family Endocrine Disorder: Yes Medications and Allergies Atorvastatin [Lipitor] 40 mg PO HS 06/08/15 [History] Gabapentin [Neurontin] 600 mg PO HS 06/08/15 [History] Garlic 1,000 mg PO DAILY 06/08/15 [History] Lisinopril [Zestril] 20 mg PO DAILY 06/08/15 [History] Loratadine [Claritin] 10 mg PO DAILY PRN 06/08/15 [History] Metoprolol [Lopressor] 50 mg PO BID 06/08/15 [History] Multivitamin [Flintstones] 1 each PO DAILY 06/08/15 [History] [place]-3S/Dha/Epa/Fish Oil [Fish Oil 1,200 mg Softgel] 1 each PO DAILY 06/08/15 [ History] Tamsulosin [Flomax] 0.4 mg PO BID 06/08/15 [History] Montelukast [Singulair] 10 mg PO HS 11/05/15 [History] Isosorbide MONOnitrate (24 HR) [Imdur] 30 mg PO DAILY 30 Days 11/07/15 [Rx] Fluticasone Propionate Nasal [Flonase] 50 mcg NS DAILY 11/09/15 [History] Latanoprost 1 drop BOTH EYES HS 11/28/15 [History] Acetaminophen [Tylenol] 650 mg PO Q6HR PRN 02/11/16 [History] Amlodipine Besylate 10 mg PO DAILY 06/12/16 [History] Ceramides 1,3,6-11 [Cerave] 1 appl TP BID 06/12/16 [History] Ferrous Sulfate 325 mg PO DAILY 06/12/16 [History] Furosemide [Lasix] 80 mg PO BID 06/12/16 [History] Hydroxyzine HCl 25 mg PO Q8H PRN 06/12/16 [History] Warfarin [Coumadin] 2.5 mg PO SUTUTHSA 06/13/16 [History] Warfarin [Coumadin] 5 mg PO MOWEFR 07/25/16 [History] Allergies clopidogrel [From Plavix] Allergy (Verified 05/06/16 09:07) Itching Cortisone Allergy (Verified 05/06/16 09:07) Joint Pain Review of Systems ROS unobtainable: due to mental status (Patient is sound asleep and difficult to awaken. ), other Exam - Vital Signs Vital signs: Initial Vital Signs Temp Pulse Resp BP Pulse Ox 97.7 F 60 16 124/68 96 07/25/16 10:18 07/25/16 10:18 07/25/16 10:18 07/25/16 10:18 07/25/16 10:18 Vital Signs - Last 8 Hours Temp Pulse Resp BP Pulse Ox 07/27/16 11:13 97.2 F L 78 16 104/60 94 L 07/27/16 07:17 97.3 F L 62 18 109/56 96 Intake and Output 07/26/16 07/27/16 07/27/16 23:59 07:59 15:59 Intake Total 1000 / 1000 1000 / 1000 Output Total 400 / 400 600 / 600 600 / 600 Balance 600 / 600 400 / 400 -600 / -600 Intake: IV Fluids 1000 / 1000 1000 / 1000 0.9 % Sodium Chloride 1, 1000 / 1000 1000 / 1000 000 ML @ 100 mls/hr IVC . Q10H KELLEE Rx#:[id number] Oral 0 / 0 Output: Catheter 400 / 400 600 / 600 600 / 600 Other: Meal Dinner Percent of Meal Consumed 50% Weight 90 kg Patient Weight 07/27/16 23:59 Weight 90 kg - General Appearance General appearance: well-developed, well-nourished Exam: Resting comfortably. EENT: ATNC Neck: supple Additional Comments: few rales noted in the bases right greater than left. Cardiology: edema (3+ pitting edema in the bilateral lower extremities. ), regular rate, regular rhythm Gastrointestinal: normoactive bowel sounds, no tenderness Integumentary: warm and dry Additional Comments: Asleep with regular spontaneous breathing noted. Musculoskeletal: no cyanosis Results - Lab Results 07/27/16 05:30 07/27/16 05:27 Most recent lab results Calcium 8.3 mg/dL (8.6-10.8) L 07/27/16 05:27 Phosphorus 4.3 mg/dL (2.3-4.7) 07/26/16 07:02 Magnesium 2.2 mg/dL (1.6-2.6) 07/25/16 17:13 Urine Creatinine 62 mg/dL 07/26/16 08:45 Urine Total Protein 21 mg/dL (1-14) H 07/26/16 08:45 Consult Discharge Plan - Plan Referrals: Roberta Berrios MD [Primary Care Provider] - (web request sent on 07/26/16 )
[2016-07-27] MEDS ORDERED: *HR* Phytonadione 10 MG/ML AMPUL SQ ONE (19:57)
[2016-07-27] MEDS: Gabapentin 300 MG CAPSULE PO SCH (21:31)
[2016-07-27] MEDS: Latanoprost 2.5 ML BOTTLE BOTH EYES SCH (21:33)
[2016-07-28 04:20] LABS: Basophils % 0.2 %; Eosinophils # 0.1 K/mcL (0.0-0.6); Eosinophils % 1.3 %; Hemoglobin 10.1 g/dL (12.9-16.9); Immature Granulocytes % 0.3 % (0-4); Lymphocytes # 0.6 K/mcL (0.6-4.6); Lymphocytes % 10.1 %; Mean Corpuscular HGB Conc 33.7 g/dL (31.6-35.5); Mean Corpuscular Hemoglobin 28.4 pg (28.0-33.3); Mean Corpuscular Volume 84.3 fL (83.0-100.0); Mean Platelet Volume 11.3 fL (9.4-12.4); Monocytes # 0.6 K/mcL (0.0-1.3); Monocytes % 10.1 %; Neutrophils # 4.9 K/mcL (1.6-8.9); Platelet Count 126 K/mcL (140-400); Red Blood Count 3.56 M/mcL (4.19-5.50); Red Cell Distribution Width 17.4 % (11.5-14.5)
[2016-07-28 04:24] LABS: INR 2.5; Prothrombin Time 27.3 Seconds (9.4-12.1)
[2016-07-28 04:38] LABS: Calcium 8.6 mg/dL (8.6-10.8); Potassium 3.3 mEq/L (3.5-4.5)
--- NOTE | 2016-07-28 08:56 | Electrocardiograph Report ---
[facility] Test Date: 2016-07-25 Pat Name: Roman King Department: 104 Room: 2A11 Gender: M [employer] Clerk: HOLGER : 1930 Requested By: Tonio Hsu Order Number: [id number] Reading MD: Tom Zuniga MD Measurements Intervals [place] Rate: 72 P: 110 [place]: 194 QRS: -80 QRSD: 183 T: 93 QT: 461 QTc: 485 Interpretive Statements DEMAND AV PACEMAKER Electronically Signed On 07-28-16 08:56:03 EST by Tom Zuniga MD
[2016-07-28] MEDS: OMEGA PO SCH (09:14)
[2016-07-28] MEDS: FISH OIL PO SCH (09:14)
[2016-07-28] MEDS: Fluticasone Propionate Nasal 50 MCG/SPRAY BOTTLE NS SCH (09:14)
[2016-07-28] MEDS: Lactulose Oral Soln 20 GM/30 ML UDC PO SCH (09:14)
[2016-07-28] MEDS: EPA PO SCH (09:14)
[2016-07-28] MEDS: Multivit/Ca/Min/Fe/FA 1 TAB TABLET PO SCH (09:14)
[2016-07-28] MEDS: DHA PO SCH (09:14)
[2016-07-28] MEDS: CERAMIDES TP SCH ×2 (09:14→20:52)
--- NOTE | 2016-07-28 09:51 | Urology - Consult Note ---
Date of Encounter: 07/28/16 Time of Encounter: 09:48 - Assessment and Plan (1) Hematuria Current Visit: Yes Status: Acute Assessment and plan: Secondary to traumatic catheter removal. This catheter was removed as it was not in the correct position. Patient was then prepped and draped in normal sterile fashion. 18-[place] Coude catheter was placed with moderate amount of resistance around the prostate. 10 mL of sterile water placed in balloon. I then manually irrigated the catheter with a small amount of clots returned. Patient will need to keep this catheter for 1 week. Call with any questions Urology CN:HPI Consult date: 07/28/16 Reason for consult Urology: Gross Hematuria Requesting physician: Rita Peralta History of present illness: Roman is a 85 y/o male with history of admission secondary to falls. Th epatient traumatically pulled catheter out on night of 07/26/16. The catheter was not removed or evaluated for correct placement. Patient continued to have blood coming around his catheter as well as through the catheter but he was having urine output. According to the nursing staff the patient did not come to the hospital with a catheter. Past Med Surg Social Fam HX - Past Medical History Medical history: atrial fibrillation, CHF, coronary artery disease, hyperlipidemia, hypertension, myocardial infarction, peripheral artery disease, renal disease, other Psychiatric history: no psych history - Past Surgical History Surgical History: coronary bypass (CABG), pacemaker/AICD, other - Social History Smoking Status: Never smoker Smokeless Tobacco Status: No Alcohol use: none Drug use: none - Family History Father History Unknown: Yes Living Status: Hx Family Cardiac Disorders: Yes Hx Family Endocrine Disorder: Yes Medications and Allergies Atorvastatin [Lipitor] 40 mg PO HS 06/08/15 [History] Gabapentin [Neurontin] 600 mg PO HS 06/08/15 [History] Garlic 1,000 mg PO DAILY 06/08/15 [History] Lisinopril [Zestril] 20 mg PO DAILY 06/08/15 [History] Loratadine [Claritin] 10 mg PO DAILY PRN 06/08/15 [History] Metoprolol [Lopressor] 50 mg PO BID 06/08/15 [History] Multivitamin [Flintstones] 1 each PO DAILY 06/08/15 [History] [place]-3S/Dha/Epa/Fish Oil [Fish Oil 1,200 mg Softgel] 1 each PO DAILY 06/08/15 [ History] Tamsulosin [Flomax] 0.4 mg PO BID 06/08/15 [History] Montelukast [Singulair] 10 mg PO HS 11/05/15 [History] Isosorbide MONOnitrate (24 HR) [Imdur] 30 mg PO DAILY 30 Days 11/07/15 [Rx] Fluticasone Propionate Nasal [Flonase] 50 mcg NS DAILY 11/09/15 [History] Latanoprost 1 drop BOTH EYES HS 11/28/15 [History] Acetaminophen [Tylenol] 650 mg PO Q6HR PRN 02/11/16 [History] Amlodipine Besylate 10 mg PO DAILY 06/12/16 [History] Ceramides 1,3,6-11 [Cerave] 1 appl TP BID 06/12/16 [History] Ferrous Sulfate 325 mg PO DAILY 06/12/16 [History] Furosemide [Lasix] 80 mg PO BID 06/12/16 [History] Hydroxyzine HCl 25 mg PO Q8H PRN 06/12/16 [History] Warfarin [Coumadin] 2.5 mg PO SUTUTHSA 06/13/16 [History] Warfarin [Coumadin] 5 mg PO MOWEFR 07/25/16 [History] Allergies clopidogrel [From Plavix] Allergy (Verified 05/06/16 09:07) Itching Cortisone Allergy (Verified 05/06/16 09:07) Joint Pain Review of Systems ROS unobtainable: due to mental status Exam Initial Vital Signs Temp Pulse Resp BP Pulse Ox 97.7 F 60 16 124/68 96 07/25/16 10:18 07/25/16 10:18 07/25/16 10:18 07/25/16 10:18 07/25/16 10:18 - General physical appearance Present: well developed - ENT Present: normal nares - Neck Present: no masses - Respiratory Present: normal respiratory effort - Cardiovascular Cardiovascular exam IM: RRR - Abdomen Abdomen: Present: soft - Genitourinary other (Catheter not correct position with blood around catheter) Urology Results - Labs 07/28/16 04:06 07/28/16 04:06 Abnormal lab results RBC 3.56 M/mcL (4.19-5.50) L 07/28/16 04:06 Hgb 10.1 g/dL (12.9-16.9) L 07/28/16 04:06 Hct 30.0 % (37.5-50.1) L 07/28/16 04:06 RDW 17.4 % (11.5-14.5) H 07/28/16 04:06 Plt Count 126 K/mcL (140-400) L 07/28/16 04:06 Platelet Estimate Slight Decrease (Normal) L 07/27/16 05:30 Immature Plt Fraction 7.3 % (1.1-6.1) H 07/27/16 05:30 Polychromasia 1+ (Not Present) A 07/27/16 05:30 Hypochromasia Present (Not Present) A 07/27/16 05:30 Target Cells 1+ (Not Present) A 07/27/16 05:30 Ovalocytes 1+ (Not Present) A 07/27/16 05:30 Acanthocytes (Spur) 1+ (Not Present) A 07/27/16 05:30 PT 27.3 Seconds (9.4-12.1) H 07/28/16 04:06 APTT 52.7 Seconds (26.0-36.0) H 07/25/16 11:40 Sodium 132 mEq/L (136-145) L 07/28/16 04:06 Potassium 3.3 mEq/L (3.5-4.5) L 07/28/16 04:06 Chloride 92 mEq/L (98-109) L 07/28/16 04:06 Carbon Dioxide 30 mEq/L (19-29) H 07/28/16 04:06 BUN 97 mg/dL (8-26) H 07/28/16 04:06 Creatinine 3.15 mg/dL (0.72-1.25) H 07/28/16 04:06 Est GFR ( Amer) 23 (> 60) L 07/28/16 04:06 Est GFR (Non-Af Amer) 19 (> 60) L 07/28/16 04:06 BUN/Creatinine Ratio 31 (6-26) H 07/28/16 04:06 Glucose 104 mg/dL (70-99) H 07/28/16 04:06 POC Glucose 108 (58-89) H 07/25/16 11:53 Calculated Osmolality 304 (280-300) H 07/28/16 04:06 Total Bilirubin 2.7 mg/dL (0.2-1.2) H 07/27/16 05:27 AST 70 Units/L (5-34) H 07/27/16 05:27 Alkaline Phosphatase 147 Units/L (38-126) H 07/27/16 05:27 Ammonia 83 mcmol/L (18-72) H 07/27/16 05:27 Troponin I 0.14 ng/mL (0-0.03) H* 07/26/16 07:02 Albumin 2.4 g/dL (3.5-5.0) L 07/27/16 05:27 Globulin 4.5 g/dL (2.4-3.5) H 07/27/16 05:27 Albumin/Globulin Ratio 0.5 (1.1-2.2) L 07/27/16 05:27 HDL Cholesterol 8 mg/dL (40-59) L 07/27/16 05:27 Cholesterol/HDL Ratio 7.0 (0-4.9) H 07/27/16 05:27 Urine Protein 30 mg/dL (Neg-Trace) H 07/26/16 08:45 Urine Blood Small (Negative) H 07/26/16 08:45 Ur Leukocyte Esterase Trace (Negative) H 07/26/16 08:45 Urine Microscopic RBC 5-15 per hpf (0-3) H 07/26/16 08:45 Urine Microscopic WBC 3-5 per hpf (0-3) H 07/26/16 08:45 Ur Squamous Epith Cells Moderate per lpf (None-Few) H 07/26/16 08:45 Ur Culture Indicated? YES (NO) A 07/26/16 08:45 Protein/Creatinin Ratio 0.34 mg/mg (0-0.20) H 07/26/16 08:45 Urine Total Protein 21 mg/dL (1-14) H 07/26/16 08:45 Diabetes panel 07/28/16 Range/Units 04:06 Sodium 132 L (136-145) mEq/L Potassium 3.3 L (3.5-4.5) mEq/L Chloride 92 L (98-109) mEq/L Carbon Dioxide 30 H (19-29) mEq/L BUN 97 H (8-26) mg/dL Creatinine 3.15 H (0.72-1.25) mg/dL Glucose 104 H (70-99) mg/dL Calcium 8.6 (8.6-10.8) mg/dL Calcium panel 07/28/16 Range/Units 04:06 Calcium 8.6 (8.6-10.8) mg/dL Pituitary panel 07/28/16 Range/Units 04:06 Sodium 132 L (136-145) mEq/L Potassium 3.3 L (3.5-4.5) mEq/L Chloride 92 L (98-109) mEq/L Carbon Dioxide 30 H (19-29) mEq/L BUN 97 H (8-26) mg/dL Creatinine 3.15 H (0.72-1.25) mg/dL Glucose 104 H (70-99) mg/dL Calcium 8.6 (8.6-10.8) mg/dL Adrenal panel 07/28/16 Range/Units 04:06 Sodium 132 L (136-145) mEq/L Potassium 3.3 L (3.5-4.5) mEq/L Chloride 92 L (98-109) mEq/L Carbon Dioxide 30 H (19-29) mEq/L BUN 97 H (8-26) mg/dL Creatinine 3.15 H (0.72-1.25) mg/dL Glucose 104 H (70-99) mg/dL Calcium 8.6 (8.6-10.8) mg/dL All other labs normal. Consult Discharge Plan - Plan Referrals: Roberta Berrios MD [Primary Care Provider] - (web request sent on 07/26/16 )
[2016-07-28 10:03] LABS: Hepatitis A Antibody IgM Nonreactive (Nonreactive); Hepatitis B Core IgM Nonreactive (Nonreactive); Hepatitis C Virus Antibody Nonreactive (Nonreactive)
--- NOTE | 2016-07-28 11:22 | Internal Med Progress Note ---
Date of Encounter: 07/28/16 Time of Encounter: 11:19 - Assessment and plan (1) Hepatic encephalopathy Current Visit: Yes Status: Acute Assessment and plan: Cirrhosis of unknown etiology. Mental status noted to be improving. However, he is noted to have only one bowel movement in 24 hours. Change lactulose to enemas from oral form. Supportive care and fall precautions. (2) Frequent falls Current Visit: Yes Status: Chronic Assessment and plan: Physical therapy evaluation noted, recommend placement in extended care facility. social services are aware of this. Have been trying to reach patient 's son to confirm CODE STATUS but unsuccessful so far. Patient confirmed to me at the time of admission That he wanted to be DNR/DNI. (3) Supratherapeutic INR Current Visit: Yes Status: Acute Assessment and plan: INR noted to be improving, received 2 doses of vitamin K, 5 and 2.5 mg respectively. Continue to monitor PT/INR. (4) Acute on chronic renal failure Current Visit: Yes Status: Chronic Assessment and plan: Less likely hepatorenal syndrome. Serum creatinine noted to be improving to baseline. Nephrology consult and follow-up appreciated, agrees with current management. We will resume antihypertensives and Lasix as his blood pressure is noted to be high and he is noted to be volume overloaded with significant peripheral edema and ascites. Stop midodrine at this time. (5) Elevated troponin I level Current Visit: Yes Status: Resolved (6) Hypokalemia Current Visit: Yes Status: Acute Assessment and plan: Continue to replace oral potassium chloride and add daily supplements. (7) Cirrhosis of liver with ascites Current Visit: Yes Status: Chronic Qualifiers: Hepatic cirrhosis type: unspecified hepatic cirrhosis Qualified Code(s): K74.60 - Unspecified cirrhosis of liver (8) CHF (congestive heart failure) Current Visit: Yes Status: Chronic Assessment and plan: Resume home medications- beta-shaw, ACEI, nitrates and diuretics; monitor closely; Qualifiers: Congestive heart failure type: systolic Congestive heart failure chronicity : chronic Qualified Code(s): I50.22 - Chronic systolic (congestive) heart failure (9) CKD (chronic kidney disease), stage IV Current Visit: Yes Status: Chronic (10) CAD (coronary artery disease) Current Visit: Yes Status: Chronic Qualifiers: Coronary Disease-Associated Artery/Lesion type: bypass graft [place] vs. transplanted heart: [place] heart Associated angina: with stable angina Qualified Code(s): I25.708 - Atherosclerosis of coronary artery bypass graft(s) , unspecified, with other forms of angina pectoris (11) HTN (hypertension) Current Visit: Yes Status: Chronic Assessment and plan: Hold Midodrine and resume antihypertensives; Qualifiers: Hypertension type: essential hypertension Qualified Code(s): I10 - Essential (primary) hypertension (12) PAD (peripheral artery disease) Current Visit: Yes Status: Chronic (13) Atrial fibrillation, permanent Current Visit: Yes Status: Chronic Assessment and plan: restart beta-shaw; rate-controlled; continue to hold Coumadin in light of hematuria; - Subjective Interval history: Improving mental status, almost back to baseline but hard of hearing, so may not answer all questions; noted to have only one bowel movement per day; seen by Urology and had Guerrero catheter changed, continues to have hematuria in the urine bag; does not report chest pain, dyspnea, palpitations, and has persistent baseline leg swelling; - Constitutional Vitals: Temp Pulse Resp BP Pulse Ox 97.4 F L 68 16 166/104 95 07/28/16 07:00 07/28/16 07:00 07/28/16 07:00 07/28/16 07:00 07/28/16 07:00 General appearance: Present: A&O X 2 - Head Head exam: Present: atraumatic, normocephalic - Neck Neck exam general surgery: Present: supple, trachea midline. Absent: lymphadenopathy - Respiratory Respiratory exam: Present: CTAB. Absent: accessory muscle use, rales, rhonchi, wheezes - Cardiovascular Cardiovascular exam: Present: irregular rhythm, +S1, +S2, systolic murmur. Absent: diastolic murmur, gallop, rubs - GI/Abdominal GI/Abdominal exam: Present: normal bowel sounds, soft, no peritoneal signs. Absent: distended, tenderness Internal Medicine: Result - Labs CBC & Chem 7: 07/28/16 04:06 07/28/16 04:06 Labs: Short CBC 07/28/16 Range/Units 04:06 WBC 6.3 (4.3-11.1) K/mcL Hgb 10.1 L (12.9-16.9) g/dL Hct 30.0 L (37.5-50.1) % Plt Count 126 L (140-400) K/mcL Neutrophils # 4.9 (1.6-8.9) K/mcL BMP 07/28/16 04:06 Sodium 132 L Potassium 3.3 L Chloride 92 L Carbon Dioxide 30 H BUN 97 H Creatinine 3.15 H Glucose 104 H Calcium 8.6 - ABG Interpretation ABG results: PT/INR, D-dimer PT 27.3 Seconds (9.4-12.1) H 07/28/16 04:06 Consult Discharge Plan - Plan Instructions: Heart Failure (DC) Referrals: Paola Rushing, OFFICE EQUIPMENT MECHANIC [Advanced Practice Nurse] - 08/04/16 11:00 am
--- NOTE | 2016-07-28 11:24 | Nephrology Progress Note ---
Date of Encounter: 07/28/16 Time of Encounter: 11:22 - Assessment and Plan (1) Acute on chronic renal failure Current Visit: Yes Status: Acute Good urine output and creatinine is declining. Patient likely can tolerate diuresis. (2) Elevated troponin I level Current Visit: Yes Status: Acute Will defer to primary team. (3) CHF (congestive heart failure) Current Visit: Yes Status: Chronic Patient in a volume overload state. Should be able to tolerate diuresis. Recommend starting at 40mg ivp daily to see if his renal function tolerates. He denies chest pain. Qualifiers: Congestive heart failure type: systolic Congestive heart failure chronicity : chronic Qualified Code(s): I50.22 - Chronic systolic (congestive) heart failure (4) Frequent falls Current Visit: Yes Status: Chronic PT/OT. per the primary team. (5) HTN (hypertension) Current Visit: Yes Status: Chronic Blood pressure starting to trend up. Will likely need antihypertensive medications reintroduced, but this can wait until after the paracentesis if this will be a large volume paracentesis as his blood pressure may drop depending on how much fluid is removed. Qualifiers: Hypertension type: essential hypertension Qualified Code(s): I10 - Essential (primary) hypertension (6) Cirrhosis of liver with ascites Current Visit: Yes Status: Acute Management per primary team. Diuretics held secondary to renal failure. Ok to resume at a reduced dose and titrate. Anticipate paracentesis today. Consider restarting the diuretics tomorrow if this will be a large volume paracentesis. Qualifiers: Qualified Code(s): K74.60 - Unspecified cirrhosis of liver (7) Anemia Current Visit: Yes Status: Acute Will check iron stores, vitamin b12 and folate. Monitor for bleeding. Qualifiers: Qualified Code(s): D64.9 - Anemia, unspecified (8) Renal atrophy, right Current Visit: No Status: Chronic per renal ultrasound. Subjective Principal diagnosis: FILIBERTO/CKD Objective - Vital Signs Vital signs: Vital Signs Temp Pulse Resp BP Pulse Ox 07/28/16 07:00 97.4 F L 68 16 166/104 95 07/28/16 04:36 97.4 F L 71 20 157/83 94 L 07/27/16 23:44 97.2 F L 70 16 130/64 98 07/27/16 19:44 97.3 F L 64 18 131/66 97 01/08/17 15:53 97.5 F L 88 16 116/68 94 L Intake and Output 07/27/16 07/28/16 07/28/16 23:59 07:59 15:59 Intake Total 0 / 0 480 / 480 Output Total 600 / 600 Balance -600 / -600 480 / 480 Intake: Oral 0 / 0 480 / 480 Output: Catheter 600 / 600 Other: Meal Lunch Breakfast Percent of Meal Consumed 0% 80% Weight 88.6 kg Patient Weight 07/28/16 23:59 Weight 88.6 kg - General Appearance General appearance: Present: well-developed, well-nourished, frail EENT: Present: ATNC Neck: Present: supple Respiratory: Present: clear Cardiology: Present: edema, regular rate Gastrointestinal: Present: normoactive bowel sounds, no tenderness, distended Additional Comments: firm. Integumentary: Present: warm and dry Additional Comments: Alert, sitting in a chair. Hard of hearing. Psychiatric: Present: mood/affect appropriate - Lab 07/28/16 04:06 07/28/16 04:06 Most recent lab results Calcium 8.6 mg/dL (8.6-10.8) 07/28/16 04:06 Phosphorus 4.3 mg/dL (2.3-4.7) 07/26/16 07:02 Magnesium 2.2 mg/dL (1.6-2.6) 07/25/16 17:13 Urine Creatinine 62 mg/dL 07/26/16 08:45 Urine Total Protein 21 mg/dL (1-14) H 07/26/16 08:45 - Imaging Kidney/bladder ultrasound: report reviewed (no hydronephrosis) Additional Comments: high bag with hematuria Consult Discharge Plan - Plan Instructions: Heart Failure (DC) Referrals: Paola Rushing, VAMP SEAMER [Advanced Practice Nurse] - 08/04/16 11:00 am
[2016-07-28] MEDS: Lisinopril 20 MG TABLET PO SCH (12:00)
[2016-07-28] MEDS: Isosorbide MONOnitrate (24 HR) 30 MG TAB.ER.24H PO SCH (12:00)
[2016-07-28] MEDS ORDERED: Lactulose 200 GM, Sodium Chloride IRRigation 700 ML RC SCH (15:00)
[2016-07-28] MEDS: Gabapentin 300 MG CAPSULE PO SCH (20:50)
[2016-07-28] MEDS: Latanoprost 2.5 ML BOTTLE BOTH EYES SCH (20:52)
[2016-07-28] MEDS ORDERED: Lactulose 200 GM/300 ML (for enema) RC SCH (21:00)
[2016-07-28] MEDS: Lactulose 200 GM/300 ML (for enema) RC SCH (21:36)
[2016-07-29 06:21] LABS: Basophils % 0.1 %; Eosinophils # 0.2 K/mcL (0.0-0.6); Hematocrit 28.4 % (37.5-50.1); Hemoglobin 9.4 g/dL (12.9-16.9); Immature Granulocytes % 0.4 % (0-4); Lymphocytes # 0.6 K/mcL (0.6-4.6); Lymphocytes % 7.6 %; Mean Corpuscular HGB Conc 33.1 g/dL (31.6-35.5); Mean Corpuscular Hemoglobin 28.1 pg (28.0-33.3); Mean Platelet Volume 11.2 fL (9.4-12.4); Monocytes # 0.7 K/mcL (0.0-1.3); Monocytes % 8.7 %; Neutrophils # 6.1 K/mcL (1.6-8.9); Platelet Count 136 K/mcL (140-400); Red Blood Count 3.34 M/mcL (4.19-5.50); Red Cell Distribution Width 17.6 % (11.5-14.5); Segmented Neutrophils % 81.2 %
[2016-07-29 06:25] LABS: INR 2.1; Prothrombin Time 22.6 Seconds (9.4-12.1)
[2016-07-29 06:40] LABS: Calcium 8.3 mg/dL (8.6-10.8); Potassium 3.8 mEq/L (3.5-4.5)
--- NOTE | 2016-07-29 07:20 | Urology Progress Note ---
Date of Encounter: 07/29/16 Time of Encounter: 07:19 - Assessment and Plan (1) Hematuria Current Visit: Yes Status: Acute Assessment and plan: improving. continue with catheter. Progress Note Narrative: patient seen this am. patient sleeping. urine in tubing slighlty bloody but improving since yesterday afternoon. INR down Objective Initial Vital Signs Temp Pulse Resp BP Pulse Ox 97.7 F 60 16 124/68 96 07/25/16 10:18 07/25/16 10:18 07/25/16 10:18 07/25/16 10:18 07/25/16 10:18 - General physical appearance Present: well developed - Abdomen Present: soft - Genitourinary Present: other (urine improving, but still slightly bloody ) - Labs 07/29/16 05:59 07/29/16 05:59 Diabetes panel 07/29/16 Range/Units 05:59 Sodium 132 L (136-145) mEq/L Potassium 3.8 (3.5-4.5) mEq/L Chloride 92 L (98-109) mEq/L Carbon Dioxide 29 (19-29) mEq/L BUN 99 H (8-26) mg/dL Creatinine 3.16 H (0.72-1.25) mg/dL Glucose 106 H (70-99) mg/dL Calcium 8.3 L (8.6-10.8) mg/dL Calcium panel 07/29/16 Range/Units 05:59 Calcium 8.3 L (8.6-10.8) mg/dL Pituitary panel 07/29/16 Range/Units 05:59 Sodium 132 L (136-145) mEq/L Potassium 3.8 (3.5-4.5) mEq/L Chloride 92 L (98-109) mEq/L Carbon Dioxide 29 (19-29) mEq/L BUN 99 H (8-26) mg/dL Creatinine 3.16 H (0.72-1.25) mg/dL Glucose 106 H (70-99) mg/dL Calcium 8.3 L (8.6-10.8) mg/dL Adrenal panel 07/29/16 Range/Units 05:59 Sodium 132 L (136-145) mEq/L Potassium 3.8 (3.5-4.5) mEq/L Chloride 92 L (98-109) mEq/L Carbon Dioxide 29 (19-29) mEq/L BUN 99 H (8-26) mg/dL Creatinine 3.16 H (0.72-1.25) mg/dL Glucose 106 H (70-99) mg/dL Calcium 8.3 L (8.6-10.8) mg/dL Consult Discharge Plan - Plan Instructions: Heart Failure (DC) Referrals: Paola Rushing, VICTORINA [Advanced Practice Nurse] - 08/04/16 11:00 am
[2016-07-29] MEDS: Isosorbide MONOnitrate (24 HR) 30 MG TAB.ER.24H PO SCH (09:15)
[2016-07-29] MEDS: FISH OIL PO SCH (09:15)
[2016-07-29] MEDS: OMEGA PO SCH (09:15)
[2016-07-29] MEDS: Lisinopril 20 MG TABLET PO SCH (09:15)
[2016-07-29] MEDS: DHA PO SCH (09:15)
[2016-07-29] MEDS: Furosemide 40 MG TABLET PO SCH ×2 (09:15→16:09)
[2016-07-29] MEDS: CERAMIDES TP SCH (09:15)
[2016-07-29] MEDS: EPA PO SCH (09:15)
[2016-07-29] MEDS: Fluticasone Propionate Nasal 50 MCG/SPRAY BOTTLE NS SCH (09:22)
[2016-07-29] MEDS: Multivit/Ca/Min/Fe/FA 1 TAB TABLET PO SCH (09:22)
--- NOTE | 2016-07-29 10:17 | Nephrology Progress Note ---
Date of Encounter: 07/29/16 Time of Encounter: 10:13 - Assessment and Plan (1) Acute on chronic renal failure Current Visit: Yes Status: Chronic Kidney function stable 1800ml UOP Lasix 40mg po BID started today; will watch kidney function closely (2) CHF (congestive heart failure) Current Visit: Yes Status: Chronic Should improve with diuretics Qualifiers: Congestive heart failure type: systolic Congestive heart failure chronicity : chronic Qualified Code(s): I50.22 - Chronic systolic (congestive) heart failure (3) Cirrhosis of liver with ascites Current Visit: Yes Status: Chronic per primary team Qualifiers: Hepatic cirrhosis type: unspecified hepatic cirrhosis Qualified Code(s): K74.60 - Unspecified cirrhosis of liver Subjective Principal diagnosis: FILIBERTO/CKD Interval history: Patient seen and examined. Sleeping soundly during exam. Objective - Vital Signs Vital signs: Vital Signs Temp Pulse Resp BP Pulse Ox 07/29/16 07:18 97.5 F L 62 14 102/68 95 07/29/16 04:02 97.7 F 61 16 90/43 97 07/29/16 00:43 97.4 F L 52 16 87/44 96 07/28/16 19:52 97.6 F 72 18 107/59 97 07/28/16 16:16 97.3 F L 62 12 104/57 97 07/28/16 11:29 97.0 F L 68 16 155/78 94 L Intake and Output 07/28/16 07/29/16 07/29/16 23:59 07:59 15:59 Intake Total 240 / 240 360 / 360 Balance 240 / 240 360 / 360 Intake: Oral 240 / 240 360 / 360 Other: Meal Dinner Breakfast Percent of Meal Consumed 80% 100% Stool Size Large Stool Consistency soft Stool Color Brown # Bowel Movement Diapers 1 Weight 87.6 kg Patient Weight 07/29/16 23:59 Weight 87.6 kg - General Appearance General appearance: Present: well-developed, well-nourished EENT: Present: ATNC Neck: Present: supple Respiratory: Present: clear Cardiology: Present: edema, normal S1, normal S2 Gastrointestinal: Present: no guarding - Lab 07/29/16 05:59 07/29/16 05:59 Most recent lab results Calcium 8.3 mg/dL (8.6-10.8) L 07/29/16 05:59 Phosphorus 4.3 mg/dL (2.3-4.7) 07/26/16 07:02 Magnesium 2.2 mg/dL (1.6-2.6) 07/25/16 17:13 Urine Creatinine 62 mg/dL 07/26/16 08:45 Urine Total Protein 21 mg/dL (1-14) H 07/26/16 08:45 Consult Discharge Plan - Plan Instructions: Heart Failure (DC) Referrals: Paola Rushing, BILLING SUPERVISOR [Advanced Practice Nurse] - 08/04/16 11:00 am
[2016-07-29 10:21] LABS: % Iron Saturation 11 % (20-55); Transferrin 216 mg/dL (174-364)
[2016-07-29 10:24] LABS: Iron 33 mcg/dL (65-175)
[2016-07-29 10:42] LABS: Ferritin 144 ng/ml (22-275)
[2016-07-29] MEDS: Lactulose 200 GM/300 ML (for enema) RC SCH ×2 (10:51→16:04)
[2016-07-29] MEDS ORDERED: Preparation H Ointment 30 GM TUBE RC PRN (17:33)
--- NOTE | 2016-07-29 17:33 | Internal Med Progress Note ---
Date of Encounter: 07/29/16 Time of Encounter: 10:00 - Assessment and plan (1) Hepatic encephalopathy Current Visit: Yes Status: Acute Assessment and plan: Cirrhosis of unknown etiology. Mental status noted to be improving. However, he is noted to have only one bowel movement in 40 hours. Change lactulose to 30 g oral 3 times a day and titrate for 2-3 soft bowel movements daily. Check ammonia in the morning. Supportive care and fall precautions. (2) Acute on chronic renal failure Current Visit: Yes Status: Chronic Assessment and plan: Increase Lasix to 40 mg oral twice a day. Daily weights. Monitor urine output.. Check creatinine. 07/28/2016: Less likely hepatorenal syndrome. Serum creatinine noted to be improving to baseline. Nephrology consult and follow-up appreciated, agrees with current management. We will resume antihypertensives and Lasix as his blood pressure is noted to be high and he is noted to be volume overloaded with significant peripheral edema and ascites. Stop midodrine at this time. (3) Atrial fibrillation, permanent Current Visit: Yes Status: Chronic Assessment and plan: Continue beta-shaw; rate-controlled; continue to hold Coumadin in light of hematuria and high fall risk with high risk of injury and bleed.; (4) CHF (congestive heart failure) Current Visit: Yes Status: Chronic Assessment and plan: Continue beta-shaw, ACEI, nitrates and diuretics; monitor symptoms, daily weight, and kidney function. Lasix was increased to twice a day. For history at home he takes 80 mg twice a day. Qualifiers: Congestive heart failure type: systolic Congestive heart failure chronicity : chronic Qualified Code(s): I50.22 - Chronic systolic (congestive) heart failure (5) HTN (hypertension) Current Visit: Yes Status: Chronic Assessment and plan: Hold Midodrine and resume antihypertensives; Qualifiers: Hypertension type: essential hypertension Qualified Code(s): I10 - Essential (primary) hypertension (6) Chronic stable angina Current Visit: No Status: Acute (7) DVT prophylaxis Current Visit: No Status: Acute Assessment and plan: Currently he is fully anticoagulated with an INR of 2.1. We will recheck the INR in the morning. - Subjective Interval history: Patient cannot provide history due to dementia. He denies shortness of breath and cough. Is more somnolent today. He is currently being treated for hepatic encephalopathy and acute kidney injury. - Constitutional Vitals: Temp Pulse Resp BP Pulse Ox 97.5 F L 61 14 115/78 96 07/29/16 16:53 07/29/16 16:53 07/29/16 16:53 07/29/16 16:53 07/29/16 16:53 General appearance: Present: A&O X 2 - Respiratory Respiratory exam: Present: CTAB. Absent: accessory muscle use, rales, rhonchi, wheezes - Cardiovascular Cardiovascular exam: Present: RRR, +S1, +S2. Absent: diastolic murmur, gallop, rubs, systolic murmur - GI/Abdominal GI/Abdominal exam: Present: normal bowel sounds, soft, no peritoneal signs. Absent: distended, tenderness - Extremities Exam Extremities exam: Present: pedal edema, warm, radial pulses palpable and symetrical. Absent: calf tenderness, cyanotic - Skin Skin exam: Present: dry, intact Internal Medicine: Result - Labs CBC & Chem 7: 07/29/16 05:59 07/29/16 05:59 Labs: Short CBC 07/29/16 Range/Units 05:59 WBC 7.5 (4.3-11.1) K/mcL Hgb 9.4 L (12.9-16.9) g/dL Hct 28.4 L (37.5-50.1) % Plt Count 136 L (140-400) K/mcL Neutrophils # 6.1 (1.6-8.9) K/mcL BMP 07/29/16 05:59 Sodium 132 L Potassium 3.8 Chloride 92 L Carbon Dioxide 29 BUN 99 H Creatinine 3.16 H Glucose 106 H Calcium 8.3 L - ABG Interpretation ABG results: PT/INR, D-dimer PT 22.6 Seconds (9.4-12.1) H 07/29/16 05:59 Consult Discharge Plan - Plan Instructions: Heart Failure (DC) Referrals: Paola Rushing, TELEPHONE DIAPHRAGM ASSEMBLER [Advanced Practice Nurse] - 08/04/16 11:00 am
[2016-07-29] MEDS: Gabapentin 300 MG CAPSULE PO SCH (21:10)
[2016-07-29] MEDS: Lactulose Oral Soln 20 GM/30 ML UDC PO SCH (21:11)
[2016-07-29] MEDS: Latanoprost 2.5 ML BOTTLE BOTH EYES SCH (21:13)
[2016-07-30 06:40] LABS: Basophils % 0.3 %; Eosinophils # 0.2 K/mcL (0.0-0.6); Eosinophils % 2.6 %; Hematocrit 29.9 % (37.5-50.1); Hemoglobin 9.9 g/dL (12.9-16.9); INR 1.9; Immature Granulocytes % 0.4 % (0-4); Lymphocytes # 0.6 K/mcL (0.6-4.6); Lymphocytes % 8.9 %; Mean Corpuscular HGB Conc 33.1 g/dL (31.6-35.5); Mean Corpuscular Hemoglobin 27.9 pg (28.0-33.3); Mean Corpuscular Volume 84.2 fL (83.0-100.0); Mean Platelet Volume 11.5 fL (9.4-12.4); Monocytes # 0.7 K/mcL (0.0-1.3); Monocytes % 9.9 %; Neutrophils # 5.5 K/mcL (1.6-8.9); Platelet Count 139 K/mcL (140-400); Prothrombin Time 20.4 Seconds (9.4-12.1); Red Blood Count 3.55 M/mcL (4.19-5.50); Red Cell Distribution Width 17.7 % (11.5-14.5); Segmented Neutrophils % 77.9 %
[2016-07-30 06:53] LABS: Calcium 8.6 mg/dL (8.6-10.8); Potassium 4.1 mEq/L (3.5-4.5)
[2016-07-30] MEDS: Isosorbide MONOnitrate (24 HR) 30 MG TAB.ER.24H PO SCH (08:18)
[2016-07-30] MEDS: Multivit/Ca/Min/Fe/FA 1 TAB TABLET PO SCH (08:19)
[2016-07-30] MEDS: Lisinopril 20 MG TABLET PO SCH (08:19)
[2016-07-30] MEDS: OMEGA PO SCH (08:19)
[2016-07-30] MEDS: EPA PO SCH (08:19)
[2016-07-30] MEDS: Fluticasone Propionate Nasal 50 MCG/SPRAY BOTTLE NS SCH (08:19)
[2016-07-30] MEDS: Furosemide 40 MG TABLET PO SCH ×2 (08:19→18:01)
[2016-07-30] MEDS: FISH OIL PO SCH (08:19)
[2016-07-30] MEDS: Lactulose Oral Soln 20 GM/30 ML UDC PO SCH ×2 (08:19→18:00)
[2016-07-30] MEDS: DHA PO SCH (08:19)
--- NOTE | 2016-07-30 10:17 | Discharge Summary ---
Date of Encounter: 07/30/16 Time of Encounter: 10:15 - Discharge Diagnosis (1) Hepatic encephalopathy Priority: Secondary Status: Acute (2) Acute on chronic renal failure Priority: Secondary Status: Chronic (3) Atrial fibrillation, permanent Priority: Secondary Status: Chronic (4) CHF (congestive heart failure) Priority: Secondary Status: Chronic Qualifiers: Congestive heart failure type: systolic Congestive heart failure chronicity : chronic Qualified Code(s): I50.22 - Chronic systolic (congestive) heart failure (5) HTN (hypertension) Priority: Secondary Status: Chronic Qualifiers: Hypertension type: essential hypertension Qualified Code(s): I10 - Essential (primary) hypertension (6) Chronic stable angina Priority: Secondary Status: Acute (7) Iron deficiency anemia Priority: Secondary Status: Acute Qualifiers: Iron deficiency anemia type: other iron deficiency Qualified Code(s): D50.8 - Other iron deficiency anemias (8) Hematuria Priority: Secondary Status: Acute (9) Supratherapeutic INR Priority: Secondary Status: Acute (10) Peripheral edema Priority: Secondary Status: Acute (11) BPH (benign prostatic hypertrophy) with urinary retention Priority: Secondary Status: Chronic (12) Warfarin-induced coagulopathy Priority: Secondary Status: Resolved (13) Cryptogenic cirrhosis of liver Priority: Secondary Status: Acute - Discharge Medications Prescriptions: Ferrous Sulfate 325 mg PO BID #60 tablet Furosemide [Lasix] 40 mg PO BIDDIURETIC #60 tablet Lactulose 30 gm PO TID #90 udc Lisinopril [Zestril] 10 mg PO DAILY #30 tablet Potassium Chloride 10 meq PO BIDWM #60 tab.er.prt Home Medications: Atorvastatin [Lipitor] 40 mg PO HS 06/08/15 [History] Gabapentin [Neurontin] 600 mg PO HS 06/08/15 [History] Garlic 1,000 mg PO DAILY 06/08/15 [History] Lisinopril [Zestril] 20 mg PO DAILY 06/08/15 [History] Loratadine [Claritin] 10 mg PO DAILY PRN 06/08/15 [History] Metoprolol [Lopressor] 50 mg PO BID 06/08/15 [History] Multivitamin [Flintstones] 1 each PO DAILY 06/08/15 [History] Nelson-3S/Dha/Epa/Fish Oil [Fish Oil 1,200 mg Softgel] 1 each PO DAILY 06/08/15 [ History] Tamsulosin [Flomax] 0.4 mg PO BID 06/08/15 [History] Montelukast [Singulair] 10 mg PO HS 11/05/15 [History] Isosorbide MONOnitrate (24 HR) [Imdur] 30 mg PO DAILY 30 Days 11/07/15 [Rx] Fluticasone Propionate Nasal [Flonase] 50 mcg NS DAILY 11/09/15 [History] Latanoprost 1 drop BOTH EYES HS 11/28/15 [History] Amlodipine Besylate 10 mg PO DAILY 06/12/16 [History] Ceramides 1,3,6-11 [Cerave] 1 appl TP BID 06/12/16 [History] Hydroxyzine HCl 25 mg PO Q8H PRN 06/12/16 [History] Ferrous Sulfate 325 mg PO BID #60 tablet 07/30/16 [Rx] Furosemide [Lasix] 40 mg PO BIDDIURETIC #60 tablet 07/30/16 [Rx] Lactulose 30 gm PO TID #90 udc 07/30/16 [Rx] Lisinopril [Zestril] 10 mg PO DAILY #30 tablet 07/30/16 [Rx] Potassium Chloride 10 meq PO BIDWM #60 tab.er.prt 07/30/16 [Rx] Allergies/Adverse Reactions: Allergies clopidogrel [From Plavix] Allergy (Verified 05/06/16 09:07) Itching Cortisone Allergy (Verified 05/06/16 09:07) Joint Pain Date of admission: 07/25/16 14:01 Primary care physician: Roberta Berrios, Consults: 07/25/16 15:47 Consult to Direct Care Provider [CONS] Routine Reason for SW Consult: discharge planning 07/25/16 16:31 Consult to Occupational Therapy [CONS] Routine Comment: Evaluate, develop and implement POC Consult to Physical Therapy [CONS] Routine Comment: Evaluate, develop and implement POC 07/26/16 08:37 Consult to Physical Therapy [CONS] Routine Comment: Evaluate, develop and implement POC 07/27/16 08:12 Consult to Nephrology [CONS] Routine Consulting Provider: Kidney Spclst Cher LANTIGUA/MARLENI Reason for Consult: Worsening CKD, hyponatremia, ?hepatorenal syndrome Call Completed: Yes 07/27/16 23:14 Consult to Urology [CONS] Routine Consulting Provider: Juanyy Cher Reason for Consult: Hematuria Call Completed: Yes - Patient Status Disposition: Home Health Service Condition: Fair Functional capacity at discharge: uses cane/walker Overall status at discharge: patient is back to baseline - Discharge Instructions Instructions: Heart Failure (DC) Follow Up With: Paola Rushing, COKE STILL CLEANER [Advanced Practice Nurse] - 08/04/16 11:00 am - Diet and Activity Activity: ambulate only with your walker Diet: low fat, low cholesterol, low salt diet, other (Fluid restriction 1500 mg daily) Hospital course: Mr. King is a 85 year old male with multiple medical comorbidities who was brought in by family due to recurrent falls. Per family and home health reports the patient had fallen twice during the week preceding her presentation to the hospital. Both times reported as mechanical fall. He suffered some bruising to the left lower rib cage and flank area. He was evaluated in the emergency department and was found that he did not suffer any significant trauma. It was noted that the patient was on Coumadin and his INR was supratherapeutic at 6.5. He was admitted to the medical service and was treated with vitamin K. He had a Guerrero catheter placed in the emergency department. The 2 of hospitalization he pulled the catheter with the balloon inflated and he suffered trauma resulting in gross hematuria. Urology was consulted and they reinserted the Guerrero catheter. Coumadin was stopped. It was also noted that his creatinine was increased from his baseline. Nephrology was consulted. Diuretic was decreased to 40 mg daily from 80 mg twice a day. His creatinine improved. The Lasix dose was slowly titrated up currently at 40 mg twice a day which she appears to tolerate well. He is also known to have a history of liver cirrhosis and therefore acetaminophen was discontinued. Due to worsening kidney function I will decrease the lisinopril dosing to 10 mg daily and recommend close follow-up with exceptional children's teacher and family doctor. Upon discharge his Coumadin will be discontinued and I recommend not restarting the Coumadin until the hematuria clears and the Guerrero catheter is removed. At that time I would still recommend against resuming the Coumadin given the history of multiple recurrent falls and high risk of significant intracranial bleed. The risks and benefits should be discussed with primary care physician at that time. During this hospitalization he was also diagnosed with iron deficiency anemia likely secondary to chronic blood loss, hematuria and decreased iron intake. His ferrous sulfate was increased to twice daily. Patient currently is medically stable for discharge home. INR is 1.9. Hemoglobin is at baseline and creatinine has been trending down. We will discharge the patient home with home health and close follow-up with primary care physician. - Time Spent with Patient Total time spent providing and/or coordinating discharge services: 45 minutes. - Constitutional Vitals: Temp Pulse Resp BP Pulse Ox 97.3 F L 69 16 108/72 98 07/30/16 07:15 07/30/16 07:15 07/30/16 07:15 07/30/16 07:15 07/30/16 07:15 General appearance: Present: A&O X 2 - Respiratory Respiratory exam: Present: CTAB. Absent: accessory muscle use, rales, rhonchi, wheezes - Cardiovascular Cardiovascular exam: Present: irregular rhythm, +S1, +S2. Absent: diastolic murmur, gallop, rubs, systolic murmur - GI/Abdominal GI/Abdominal exam: Present: normal bowel sounds, soft, no peritoneal signs. Absent: distended, tenderness - Extremities Exam Extremities exam: Present: pedal edema, warm, radial pulses palpable and symetrical. Absent: calf tenderness, cyanotic
--- NOTE | 2016-07-30 10:41 | Physician Discharge Referral ---
Home Health/Hosp Referral Info Transfer to: Home Health Provider in Charge Post Discharge: PCP - Diagnosis (1) Hepatic encephalopathy Status: Acute (2) Acute on chronic renal failure Status: Chronic (3) Atrial fibrillation, permanent Status: Chronic (4) CHF (congestive heart failure) Status: Chronic (5) HTN (hypertension) Status: Chronic (6) Chronic stable angina Status: Acute (7) Iron deficiency anemia Status: Acute (8) Hematuria Status: Acute (9) Supratherapeutic INR Status: Acute (10) Peripheral edema Status: Acute (11) BPH (benign prostatic hypertrophy) with urinary retention Status: Chronic (12) Warfarin-induced coagulopathy Status: Resolved (13) Cryptogenic cirrhosis of liver Status: Acute - Respiratory Orders Smoking Cessation: Smoking cessation has been advised. For more information, call the [facility] Tobacco Quit Line at 1-794-JKPP-NOW. - Diet/Nutrition Diet/Nutrition Orders: No Added Salt (PRIMO), Cardiac (1500 mL fluid restriction daily.) - Activity Activity Orders: Walker - Services Needed Following services are medically necessary services: Nursing, Home Health Aide, Physical Therapy Home Care Orders: Guerrero catheter management by home health. - Transfer Medications Prescriptions: Ferrous Sulfate 325 mg PO BID #60 tablet Furosemide [Lasix] 40 mg PO BIDDIURETIC #60 tablet Lactulose 30 gm PO TID #90 udc Lisinopril [Zestril] 10 mg PO DAILY #30 tablet Potassium Chloride 10 meq PO BIDWM #60 tab.er.prt Home Medications: Atorvastatin [Lipitor] 40 mg PO HS 06/08/15 [History] Gabapentin [Neurontin] 600 mg PO HS 06/08/15 [History] Garlic 1,000 mg PO DAILY 06/08/15 [History] Lisinopril [Zestril] 20 mg PO DAILY 06/08/15 [History] Loratadine [Claritin] 10 mg PO DAILY PRN 06/08/15 [History] Metoprolol [Lopressor] 50 mg PO BID 06/08/15 [History] Multivitamin [Flintstones] 1 each PO DAILY 06/08/15 [History] [place]-3S/Dha/Epa/Fish Oil [Fish Oil 1,200 mg Softgel] 1 each PO DAILY 06/08/15 [ History] Tamsulosin [Flomax] 0.4 mg PO BID 06/08/15 [History] Montelukast [Singulair] 10 mg PO HS 11/05/15 [History] Isosorbide MONOnitrate (24 HR) [Imdur] 30 mg PO DAILY 30 Days 11/07/15 [Rx] Fluticasone Propionate Nasal [Flonase] 50 mcg NS DAILY 11/09/15 [History] Latanoprost 1 drop BOTH EYES HS 11/28/15 [History] Amlodipine Besylate 10 mg PO DAILY 06/12/16 [History] Ceramides 1,3,6-11 [Cerave] 1 appl TP BID 06/12/16 [History] Hydroxyzine HCl 25 mg PO Q8H PRN 06/12/16 [History] Ferrous Sulfate 325 mg PO BID #60 tablet 07/30/16 [Rx] Furosemide [Lasix] 40 mg PO BIDDIURETIC #60 tablet 07/30/16 [Rx] Lactulose 30 gm PO TID #90 udc 07/30/16 [Rx] Lisinopril [Zestril] 10 mg PO DAILY #30 tablet 07/30/16 [Rx] Potassium Chloride 10 meq PO BIDWM #60 tab.er.prt 07/30/16 [Rx] Allergies/Adverse Reactions: Allergies clopidogrel [From Plavix] Allergy (Verified 05/06/16 09:07) Itching Cortisone Allergy (Verified 05/06/16 09:07) Joint Pain Certification: Further, I certify that my clinical findings support that this patient is homebound (i.e. absences from home require considerable and taxing effort and are for medical reasons or voodoo services or infrequently or short duration when for other reasons) because: Homebound Reason: Patient requires assistance of a person or device to safely leave home, Absences from home are contraindicated except to recieve medical care, Leaving home requires considerable and taxing effort due to condition, Altered mental status requiring supervision when leaving home, Severity of cardiac or pulmonary status limits activity tolerance Attestation: My signature below is to certify that this patient is under my care and that I, or nurse practitioner, or a physician's graduate assistant working with me, has a face-to -face encounter with this patient.
[2016-07-30 15:20] VITALS: BP 110/64
== END 2016-07-30 18:15 | disposition home health service (06) ==
LOC: 2ANU 10:16 → EMEROO 10:16 → SUATTDRO 14:01 → 2ANU 14:56
PROVIDERS: ADMIT Emergency Medicine; ATTEND Internal Medicine

== ENCOUNTER 2016-07-31 12:03 | Inpatient (IN) ==
[2016-07-31 13:07] LABS: Basophils % 0.1 %; Eosinophils # 0.2 K/mcL (0.0-0.6); Eosinophils % 2.6 %; Hematocrit 29.8 % (37.5-50.1); Immature Granulocytes % 0.4 % (0-4); Lymphocytes # 0.6 K/mcL (0.6-4.6); Lymphocytes % 8.5 %; Mean Corpuscular HGB Conc 33.6 g/dL (31.6-35.5); Mean Corpuscular Hemoglobin 28.2 pg (28.0-33.3); Mean Corpuscular Volume 84.2 fL (83.0-100.0); Mean Platelet Volume 10.4 fL (9.4-12.4); Monocytes # 0.8 K/mcL (0.0-1.3); Monocytes % 11.9 %; Neutrophils # 5.4 K/mcL (1.6-8.9); Platelet Count 150 K/mcL (140-400); Red Blood Count 3.54 M/mcL (4.19-5.50); Red Cell Distribution Width 18.2 % (11.5-14.5); Segmented Neutrophils % 76.5 %
--- NOTE | 2016-07-31 13:13 | Emergency Department Note ---
Disposition Clinical Impression: Congestive heart failure Disposition: Admitted As Inpatient Condition: Fair Referrals: Roberta Berrios MD [Primary Care Provider] - Time of Disposition: 14:00 General Adult HPI - General Chief complaint: ED General Medical Stated complaint: bilat hands/feet swollen Time Seen by Provider: 07/31/16 12:11 Source: EMS Limitations: physical limitation, age - History of Present Illness HPI Narrative: Patient brought to the emergency department with home health. Home health advised that he was discharged yesterday with bilateral swelling in his hands and arms and feet. She did not think that this is any better from when he was admitted. She spoke with Dr. Jeronimo's nurse who stated to come to the emergency department. Pain Scale: 0 - Related Data Home Medications Medication Instructions Recorded Confirmed Atorvastatin [Lipitor] 40 mg PO HS 06/08/15 07/25/16 Gabapentin [Neurontin] 600 mg PO HS 06/08/15 07/25/16 Garlic 1,000 mg PO DAILY 06/08/15 07/25/16 Loratadine [Claritin] 10 mg PO DAILY PRN 06/08/15 07/25/16 Metoprolol [Lopressor] 50 mg PO BID 06/08/15 07/25/16 Multivitamin [Flintstones] 1 each PO DAILY 06/08/15 07/25/16 [place]-3S/Dha/Epa/Fish Oil [Fish 1 each PO DAILY 06/08/15 07/25/16 Oil 1,200 mg Softgel] Tamsulosin [Flomax] 0.4 mg PO BID 06/08/15 07/25/16 Montelukast [Singulair] 10 mg PO HS 11/05/15 07/25/16 Fluticasone Propionate Nasal 50 mcg NS DAILY 11/09/15 07/25/16 [Flonase] Latanoprost 1 drop BOTH EYES HS 11/28/15 07/25/16 Amlodipine Besylate 10 mg PO DAILY 06/12/16 07/25/16 Ceramides 1,3,6-11 [Cerave] 1 appl TP BID 06/12/16 07/25/16 Hydroxyzine HCl 25 mg PO Q8H PRN 06/12/16 07/25/16 Furosemide [Lasix] 80 mg PO BID 07/31/16 07/31/16 Warfarin [Coumadin] 2.5 mg PO SUTUTHSA 07/31/16 07/31/16 Warfarin [Coumadin] 5 mg PO MOWEFR 07/31/16 07/31/16 Previous Rx's Medication Instructions Recorded Isosorbide MONOnitrate (24 HR) 30 mg PO DAILY 30 Days 11/07/15 [Imdur] Ferrous Sulfate 325 mg PO BID #60 tablet 07/30/16 Lactulose 30 gm PO TID #90 udc 07/30/16 Lisinopril [Zestril] 10 mg PO DAILY #30 tablet 07/30/16 Potassium Chloride 10 meq PO BIDWM #60 tab.er.prt 07/30/16 Allergies Allergy/AdvReac Type Severity Reaction Status Date / Time clopidogrel [From Plavix] Allergy Itching Verified 05/06/16 09:07 Cortisone Allergy Joint Pain Verified 05/06/16 09:07 Review of Systems: Patient reports mild shortness of breath. He denies any chest pain. He does report swelling in his hands and feet bilaterally. All systems ED: reviewed and negative except as stated. Past Medical History - Past Medical History Medical history: Reports: atrial fibrillation, CHF, coronary artery disease, hyperlipidemia, hypertension, myocardial infarction, peripheral artery disease, renal disease, other Surgical history: Reports: coronary bypass (CABG), pacemaker/AICD, other Psychiatric history: Reports: no psych history - Social History Smoking Status: Never smoker Smokeless Tobacco Status: No Alcohol use: Reports: none Drug use: Reports: none Physical Exam - General Limitations: physical limitation, age Course Course Narrative: The patient brought into the emergency department by EMS. He is given by home health nurse. He was discharged from this facility yesterday. Patient complains of mild shortness of breath. He denies any pain. Home health is advising the patient's hands are still swollen as well as his legs and are unsure why he is discharged from the hospital yesterday. She states she talk with Dr. Douglas's nurse today and they are requesting to be admitted again. Patient does have bilateral hand swelling and pitting edema to mid forearms. He also has some edema to his ankles that is 4+ pitting. His chest x-ray does show some increase in his pulmonary edema. Admit patient for worsening of his CHF. He does appear very lethargic in bed. He is arousable to voice however falls asleep quickly - Consultations Consultation #1: Spoke with Dr. Doulgas. He agrees with admitting Pt for further diuresis. Time: 14:35 Consultation #2: Dr Biggs admitted Pt in stable condition. Time: 14:54 Vital Signs Temperature 97.3 F L 07/31/16 12:07 Pulse Rate 61 07/31/16 12:07 Respiratory Rate 14 07/31/16 12:07 Blood Pressure 109/59 07/31/16 12:07 O2 Sat by Pulse Oximetry 100 07/31/16 12:07 Temperature 97.3 F L 07/31/16 12:07 Pulse Rate 53 07/31/16 13:56 Respiratory Rate 13 07/31/16 13:56 Blood Pressure 99/70 07/31/16 13:56 O2 Sat by Pulse Oximetry 99 07/31/16 13:56 Oxygen Delivery Oxygen Delivery Nasal Cannula Medical Decision Making - Medical Records Medical records reviewed: Yes I reviewed the patient's medical records. - Lab Data Lab results reviewed: Yes I reviewed the patient's lab results. Result diagrams: 07/31/16 12:58 07/31/16 12:58 Lab Results 07/31/16 07/31/16 07/31/16 Range/Units 12:58 12:58 14:30 WBC 7.0 (4.3-11.1) K/mcL RBC 3.54 L (4.19-5.50) M/mcL Hgb 10.0 L (12.9-16.9) g/dL Hct 29.8 L (37.5-50.1) % MCV 84.2 (83.0-100.0) fL MCH 28.2 (28.0-33.3) pg MCHC 33.6 (31.6-35.5) g/dL RDW 18.2 H (11.5-14.5) % Plt Count 150 (140-400) K/mcL MPV 10.4 (9.4-12.4) fL Immature Gran % 0.4 (0-4) % Seg Neutrophils % 76.5 % Lymphocytes % 8.5 % Monocytes % 11.9 % Eosinophils % 2.6 % Basophils % 0.1 % Neutrophils # 5.4 (1.6-8.9) K/mcL Lymphocytes # 0.6 (0.6-4.6) K/mcL Monocytes # 0.8 (0.0-1.3) K/mcL Eosinophils # 0.2 (0.0-0.6) K/mcL Basophils # 0.0 (0.0-0.2) K/mcL Sodium 128 L (136-145) mEq/L Potassium 3.9 (3.5-4.5) mEq/L Chloride 91 L (98-109) mEq/L Carbon Dioxide 28 (19-29) mEq/L BUN 101 H (8-26) mg/dL Creatinine 3.30 H (0.72-1.25) mg/dL Est GFR ( Amer) 22 L (> 60) Est GFR (Non-Af Amer) 18 L (> 60) BUN/Creatinine Ratio 31 H (6-26) Glucose 124 H (70-99) mg/dL Calculated Osmolality 299 (280-300) Calcium 8.7 (8.6-10.8) mg/dL Albumin 2.3 L (3.5-5.0) g/dL Urine Color Red A (Yellow) Urine Clarity Cloudy A (Clear) Urine pH 6.5 (5.0-8.0) pH Units Ur Specific [place] 1.016 (1.010-1.025) Urine Protein 100 H (Neg-Trace) mg/dL Urine Glucose (UA) Normal (Normal) mg/dL Urine Ketones Trace H (Negative) mg/dL Urine Blood Large H (Negative) Urine Nitrite Negative (Negative) Urine Bilirubin Small H (Negative) Urine Urobilinogen 2.0 H (Normal) mg/dL Ur Leukocyte Esterase Large H (Negative) Ur Culture Indicated? YES A (NO) - Radiology Data Radiology results reviewed: Yes I reviewed the patient's radiology results. - EKG Data EKG #1 EKG attestation: Yes I reviewed and interpreted this EKG. EKG results narrative: Ventricular paced EKG at a rate of 69. Consistent with prior EKG dated 2016. ER intervals 146. Esterase and 198 QT 41 and QTC is 500. No signs of acute ischemia. Attestation Statement - Attestation Attestation: I examined this patient and my medical decision-making was reviewed with the MANAGER FUND/PA/Advanced Practice Nurse/Resident Physician. I agree with the documented findings, disposition and treatment plan as described except to the extent set forth below. 85-year-old male presents because of peripheral edema. Patient contributes virtually nothing to his past medical history, review of systems or history of present illness. He was brought in by home health care provider because of swelling was and legs. Unknown if there is any pain. He was recently admitted to the hospital for diuresis and was discharged yesterday with a reduced dose of Lasix. He does have history of renal insufficiency. He has very poor appetite with poor oral intake. Elderly male who is asleep in the bed. He arouses but does not attribute any information. Oropharynx clear. Neck is supple. Trachea midline. Chest scattered rales in both bases. Abdomen soft nondistended and nontender. Extremities with 2+ pitting edema of the hands and ankles. Chest x-ray with increasing pulmonary edema. There is continued downward trending of his renal function and albumin. 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
[2016-07-31 13:18] LABS: Albumin 2.3 g/dL (3.5-5.0); Calcium 8.7 mg/dL (8.6-10.8); Potassium 3.9 mEq/L (3.5-4.5)
[2016-07-31 14:57] LABS: Bilirubin,Urine Small (Negative); Blood,Urine Large (Negative); Clarity,Urine Cloudy (Clear); Color,Urine Red (Yellow); Glucose,Urine (UA) Normal (Normal); Ketones,Urine Trace mg/dL (Negative); Leukocyte Esterase,Urine Large (Negative); Nitrite,Urine Negative (Negative); PH,Urine 6.5 pH Units (5.0-8.0); Protein,Urine 100 mg/dL (Neg-Trace); Specific Gravity,Urine 1.016 (1.010-1.025)
--- NOTE | 2016-07-31 16:11 | Internal Med History&Physical ---
Date of Encounter: 07/31/16 Time of Encounter: 15:50 Assessment and Plan (1) Fluid overload Current visit: Yes Status: Acute Pt with peripheral edema, pitting to LE. Pt is not in respiratory distress, xray shows mild pulmonary congestion. Monitor I&O- pt has high Diurese with lasix 20mg IV BID Monitor BP for hypotension Qualifiers: Hypervolemia type: other Qualified Code(s): E87.79 - Other fluid overload (2) CKD (chronic kidney disease), stage IV Current visit: Yes Status: Chronic Pt has high in place, dark tea colored urine in bag, red urine in tubing. approx 100ml in bag. Monitor labs Urine culture pending Monitor I&O (3) Cirrhosis of liver with ascites Current visit: No Status: Chronic Pt sl jaundiced to forehead, conjunctiva pale. Overall, skin is pale, but warm. Abd rounded, distended, firm, no fluid wave with palpation. Pt does arouse enough to state that he does not have abd pain. Pt has hepatic encephalopathy, last ammonia level was WNL 2 days ago, will monitor. Ammonia level Observe for change in mental status Continue lactulose Ensure pt has 2-3 BM daily Qualifiers: Hepatic cirrhosis type: unspecified hepatic cirrhosis Qualified Code(s): K74.60 - Unspecified cirrhosis of liver (4) CHF (congestive heart failure) Current visit: No Status: Chronic Diurese as above for Fluid overload Continue beta shaw IV Lasix BNP Qualifiers: Congestive heart failure type: systolic Congestive heart failure chronicity : chronic Qualified Code(s): I50.22 - Chronic systolic (congestive) heart failure (5) Atrial fibrillation, permanent Current visit: No Status: Chronic Continuous cardiac monitoring PT/INR Maintain Warfain doses Internal Medicine - H&P: HPI Chief complaint: Peripheral edema Admitted From: Emergency Dept Plans for Post Hospital Care: Home History of present illness: Mr. King is a 85 year old male with extensive medical history, including CHF, Stage III CKD, Afib, CAD, and cirrhosis, who presents to ED today for continued peripheral edema. Pt was inpatient from 07/25-07/30 for same and discharged, brought back by home health nurse who is not present during exam. Past Med Surg Social Fam HX - Past Medical History Medical history: atrial fibrillation, CHF, coronary artery disease, hyperlipidemia, hypertension, myocardial infarction, peripheral artery disease, renal disease, other Psychiatric history: no psych history - Past Surgical History Surgical History: coronary bypass (CABG), pacemaker/AICD, other - Social History Smoking Status: Never smoker Smokeless Tobacco Status: No Alcohol use: none Drug use: none - Family History Father Living Status: Hx Family Cardiac Disorders: Yes Hx Family Endocrine Disorder: Yes Internal Medicine - H&P: Meds Atorvastatin [Lipitor] 40 mg PO HS 06/08/15 [History] Gabapentin [Neurontin] 600 mg PO HS 06/08/15 [History] Garlic 1,000 mg PO DAILY 06/08/15 [History] Loratadine [Claritin] 10 mg PO DAILY PRN 06/08/15 [History] Metoprolol [Lopressor] 50 mg PO BID 06/08/15 [History] Multivitamin [Flintstones] 1 each PO DAILY 06/08/15 [History] [place]-3S/Dha/Epa/Fish Oil [Fish Oil 1,200 mg Softgel] 1 each PO DAILY 06/08/15 [ History] Tamsulosin [Flomax] 0.4 mg PO BID 06/08/15 [History] Montelukast [Singulair] 10 mg PO HS 11/05/15 [History] Isosorbide MONOnitrate (24 HR) [Imdur] 30 mg PO DAILY 30 Days 11/07/15 [Rx] Fluticasone Propionate Nasal [Flonase] 50 mcg NS DAILY 11/09/15 [History] Latanoprost 1 drop BOTH EYES HS 11/28/15 [History] Amlodipine Besylate 10 mg PO DAILY 06/12/16 [History] Ceramides 1,3,6-11 [Cerave] 1 appl TP BID 06/12/16 [History] Hydroxyzine HCl 25 mg PO Q8H PRN 06/12/16 [History] Ferrous Sulfate 325 mg PO BID #60 tablet 07/30/16 [Rx] Lactulose 30 gm PO TID #90 udc 07/30/16 [Rx] Lisinopril [Zestril] 10 mg PO DAILY #30 tablet 07/30/16 [Rx] Potassium Chloride 10 meq PO BIDWM #60 tab.er.prt 07/30/16 [Rx] Furosemide [Lasix] 80 mg PO BID 07/31/16 [History] Warfarin [Coumadin] 2.5 mg PO SUTUTHSA 07/31/16 [History] Warfarin [Coumadin] 5 mg PO MOWEFR 07/31/16 [History] Allergies clopidogrel [From Plavix] Allergy (Verified 05/06/16 09:07) Itching Cortisone Allergy (Verified 05/06/16 09:07) Joint Pain ROS unobtainable: due to mental status All Systems PM: Pt mostly non-contributory to ROS, does awaken briefly to verbal to deny pain or needs. - Constitutional Vitals: Temp Pulse Resp BP Pulse Ox 97.3 F L 53 13 99/70 99 07/31/16 12:07 07/31/16 13:56 07/31/16 13:56 07/31/16 13:56 07/31/16 13:56 General appearance: Present: no acute distress Exam: Pt is drowsy,arouses briefly, but appears to answer questions appropriately. - Neck Neck exam general surgery: Present: trachea midline - Expanded Neck Exam Neck exam: Absent: carotid bruit - Cardiovascular Cardiovascular exam: Present: JVD Additional comments: .murmur heard at L sternal border, tricuspid area +3/6 - GI/Abdominal GI/Abdominal exam: Present: diminished bowel sounds, distended, firm, hypoactive bowel sounds. Absent: tenderness - Additional comments: Pt has high in place, dk tea colored urine in bag, approx 100ml, red urine in tubing. - Extremities Exam Extremities exam: Present: pedal edema, warm Additional comments: Pt has +2 non-pitting edema to gaetano upper extremities and +3 pitting edema to gaetano LE. - Neurological Exam Additional comments: Pt sleeps throughout exam. Is drowsy and awakens briefly with multiple verbal stimuli. Responses seem to be appropriate. Arouses briefly, then back to sleep. Speech is clear, but slow. Pt is slow to respond. - Skin Skin exam: Present: dry Additional comments: Pt with bruises to gaetano upper extremities, most likely from recent hospital admission. None noted to gaetano lower extremities. Internal Med - H&P Results - Labs CBC & Chem 7: 07/31/16 12:58 07/31/16 12:58 - EKG Data EKG comments: 07/31/16 17:10
[2016-07-31] MEDS ORDERED: Ibuprofen 400 MG TABLET PO PRN (17:30)
[2016-07-31] MEDS ORDERED: Ondansetron 4 MG/2 ML VIAL IVP PRN (17:30)
[2016-07-31] MEDS ORDERED: Acetaminophen 325 MG TABLET PO PRN (17:30)
[2016-07-31] MEDS ORDERED: Naloxone 0.4 MG/ML INJ IVP PRN (17:30)
[2016-07-31] MEDS ORDERED: Lactulose Oral Soln 20 GM/30 ML UDC PO STA ×2 (17:47→18:18)
[2016-07-31] MEDS ORDERED: Furosemide 20 MG/2 ML VIAL IVP ONE (18:21)
[2016-07-31] MEDS ORDERED: Furosemide 40 MG/4 ML VIAL IVP STA (18:25)
[2016-07-31 18:39] LABS: INR 1.7
[2016-07-31 18:42] LABS: Activated Partial Thrombo Time 39.5 Seconds (26.0-36.0)
[2016-07-31] MEDS: *HR* Warfarin 2.5 MG TABLET PO SCH (18:44)
[2016-07-31] MEDS: CERAMIDES TP SCH (20:14)
[2016-07-31 20:38] LABS: Bilirubin,Urine Negative (Negative); Blood,Urine Large (Negative); Clarity,Urine Cloudy (Clear); Color,Urine Dark Yellow (Yellow); Glucose,Urine (UA) Normal (Normal); Ketones,Urine Negative (Negative); Leukocyte Esterase,Urine Moderate (Negative); Nitrite,Urine Negative (Negative); PH,Urine 7.5 pH Units (5.0-8.0); Protein,Urine 30 mg/dL (Neg-Trace); Specific Gravity,Urine 1.009 (1.010-1.025); Urobilinogen,Urine Normal (Normal)
[2016-07-31 20:41] LABS: Bacteria,Urine None Seen per hpf (None-Few); Hyaline Casts,Urine None Seen per lpf (None-Few); RBC,Urine TNTC per hpf (0-3); Squamous Epithelial Cell,Urine Many per lpf (None-Few); WBC,Urine 50-100 per hpf (0-3)
[2016-07-31] MEDS ORDERED: Furosemide 20 MG/2 ML VIAL IVP SCH (21:00)
[2016-07-31] MEDS: Latanoprost 2.5 ML BOTTLE BOTH EYES SCH (21:32)
--- NOTE | 2016-07-31 21:48 | Nephrology Consult Note ---
Date of Encounter: 07/31/16 Time of Encounter: 16:07 Assessment and Plan (1) Fluid overload Current Visit: Yes Status: Acute Patient with anasarca. Recommend cautious diuresis. Check for cardiac dysfunction. Likely a combination of heart, kidney and possibly liver dysfunction. Qualifiers: Hypervolemia type: other Qualified Code(s): E87.79 - Other fluid overload (2) Dvahy-ah-zuorgpq renal failure Current Visit: No Status: Acute Mild FILIBERTO on CKD. May be CHF. I recommend IV lasix as tolerated. If renal function worsens or won't tolerate diuresis he may need dialysis/UF for volume control. Adjust medications for renal function. Will increase lasix to 40mg iv daily. This can be titrated if no effect, or insufficient. Will discontinue NSAID and lisinopril. (3) Anemia Current Visit: No Status: Acute Monitor hemoglobin and transfuse as needed. Qualifiers: Qualified Code(s): D64.9 - Anemia, unspecified (4) Encephalopathy Current Visit: No Status: Chronic I spoke with the covering team. His mental status is altered for unclear reasons. His urine is concerning for UTI, his BNP, ammonia and troponin are elevated so he has multiple possible sources for his encephalopathy. History of Present Illness - Reason for Consult Consult date: 07/31/16 Acute Kidney Injury - Chief Complaint Swelling - History of Present Illness Mr. King is an 85 yo man known to [facility] from a recent hospitalization for acute on chronic renal failure. He was discharged and returns today secondary to concerns from his home health nurse for worsening edema. He was seen in the ER and the patient's mental status was worse than the last time I saw him. He denied any complaint, but was unable to focus on the conversation or provide meaningful history. Past Med Surg Social Fam HX - Past Medical History Medical history: atrial fibrillation, CHF, coronary artery disease, hyperlipidemia, hypertension, myocardial infarction, peripheral artery disease, renal disease, other Psychiatric history: no psych history - Past Surgical History Surgical History: coronary bypass (CABG), pacemaker/AICD, other - Social History Smoking Status: Never smoker Smokeless Tobacco Status: No Alcohol use: none Drug use: none - Family History Father History Unknown: Yes Name: Fidel King Living Status: Age at : 65 Cause of : Heart disease Hx Family Cardiac Disorders: Yes Hx Family Endocrine Disorder: Yes Medications and Allergies Atorvastatin [Lipitor] 40 mg PO HS 06/08/15 [History] Gabapentin [Neurontin] 600 mg PO HS 06/08/15 [History] Garlic 1,000 mg PO DAILY 06/08/15 [History] Loratadine [Claritin] 10 mg PO DAILY PRN 06/08/15 [History] Metoprolol [Lopressor] 50 mg PO BID 06/08/15 [History] Multivitamin [Flintstones] 1 each PO DAILY 06/08/15 [History] [place]-3S/Dha/Epa/Fish Oil [Fish Oil 1,200 mg Softgel] 1 each PO DAILY 06/08/15 [ History] Tamsulosin [Flomax] 0.4 mg PO BID 06/08/15 [History] Montelukast [Singulair] 10 mg PO HS 11/05/15 [History] Isosorbide MONOnitrate (24 HR) [Imdur] 30 mg PO DAILY 30 Days 11/07/15 [Rx] Fluticasone Propionate Nasal [Flonase] 50 mcg NS DAILY 11/09/15 [History] Latanoprost 1 drop BOTH EYES HS 11/28/15 [History] Amlodipine Besylate 10 mg PO DAILY 06/12/16 [History] Ceramides 1,3,6-11 [Cerave] 1 appl TP BID 06/12/16 [History] Hydroxyzine HCl 25 mg PO Q8H PRN 06/12/16 [History] Ferrous Sulfate 325 mg PO BID #60 tablet 07/30/16 [Rx] Lactulose 30 gm PO TID #90 udc 07/30/16 [Rx] Lisinopril [Zestril] 10 mg PO DAILY #30 tablet 07/30/16 [Rx] Potassium Chloride 10 meq PO BIDWM #60 tab.er.prt 07/30/16 [Rx] Furosemide [Lasix] 80 mg PO BID 07/31/16 [History] Warfarin [Coumadin] 2.5 mg PO SUTUTHSA 07/31/16 [History] Warfarin [Coumadin] 5 mg PO MOWEFR 07/31/16 [History] Allergies clopidogrel [From Plavix] Allergy (Verified 05/06/16 09:07) Itching Cortisone Allergy (Verified 05/06/16 09:07) Joint Pain Review of Systems ROS unobtainable: due to mental status Exam - Vital Signs Vital signs: Initial Vital Signs Temp Pulse Resp BP Pulse Ox 97.3 F L 61 14 109/59 100 07/31/16 12:07 07/31/16 12:07 07/31/16 12:07 07/31/16 12:07 07/31/16 12:07 Vital Signs - Last 8 Hours Temp Pulse Resp BP Pulse Ox 07/31/16 20:33 99 07/31/16 20:19 99 07/31/16 19:48 97.7 F 66 16 119/66 99 Intake and Output 07/31/16 07/31/16 07/31/16 07:59 15:59 23:59 Output Total 600 / 600 Balance -600 / -600 Output: Catheter 600 / 600 - General Appearance General appearance: well-developed, well-nourished, chronically ill, frail EENT: ATNC Neck: supple Respiratory: clear Cardiology: edema, regular rate, regular rhythm (occasionally ectopic beats) Gastrointestinal: normoactive bowel sounds, no tenderness Integumentary: warm and dry Additional Comments: He is slightly difficult to arouse, but is hard of hearing. He is able to answer he is in the hospital and that it is 2017, but does not answer other questions. Musculoskeletal: no cyanosis Additional Comments: lethargic. Results - Lab Results 07/31/16 12:58 07/31/16 12:58 Most recent lab results Calcium 8.7 mg/dL (8.6-10.8) 07/31/16 12:58 Consult Discharge Plan - Plan Referrals: Roberta Berrios MD [Primary Care Provider] -
[2016-08-01 05:44] LABS: Basophils % 0.3 %; Eosinophils # 0.2 K/mcL (0.0-0.6); Eosinophils % 3.2 %; Hematocrit 27.9 % (37.5-50.1); Hemoglobin 9.3 g/dL (12.9-16.9); Immature Granulocytes % 0.8 % (0-4); Lymphocytes # 0.7 K/mcL (0.6-4.6); Lymphocytes % 10.9 %; Mean Corpuscular HGB Conc 33.3 g/dL (31.6-35.5); Mean Corpuscular Hemoglobin 27.8 pg (28.0-33.3); Mean Corpuscular Volume 83.5 fL (83.0-100.0); Mean Platelet Volume 10.7 fL (9.4-12.4); Monocytes # 0.6 K/mcL (0.0-1.3); Monocytes % 9.2 %; Platelet Count 126 K/mcL (140-400); Red Blood Count 3.34 M/mcL (4.19-5.50); Red Cell Distribution Width 18.4 % (11.5-14.5); Segmented Neutrophils % 75.6 %
[2016-08-01 05:58] LABS: Calcium 8.6 mg/dL (8.6-10.8)
[2016-08-01] MEDS: Isosorbide MONOnitrate (24 HR) 30 MG TAB.ER.24H PO SCH (08:57)
[2016-08-01] MEDS: Fluticasone Propionate Nasal 50 MCG/SPRAY BOTTLE NS SCH (08:58)
[2016-08-01] MEDS: Multivit/Ca/Min/Fe/FA 1 TAB TABLET PO SCH (08:58)
[2016-08-01] MEDS ORDERED: Furosemide 20 MG/2 ML VIAL IVP SCH ×2 (09:00)
[2016-08-01] MEDS ORDERED: Lisinopril 20 MG TABLET PO SCH (09:00)
[2016-08-01] MEDS: Lactulose Oral Soln 20 GM/30 ML UDC PO SCH ×2 (09:02→19:45)
[2016-08-01] MEDS: (Omega-3s/Dha/Epa/Fish Oil [Fish Oil 1,200 Mg Softgel PO SCH (09:24)
[2016-08-01] MEDS: CERAMIDES TP SCH (09:24)
--- NOTE | 2016-08-01 10:01 | Electrocardiograph Report ---
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
--- NOTE | 2016-08-01 11:06 | Nephrology Progress Note ---
Date of Encounter: 08/01/16 Time of Encounter: 09:35 - Assessment and Plan (1) Fluid overload Current Visit: Yes Status: Acute Continue IV lasix: titrate based upon UOP and SCr. No urgent dialysis needs today but with his advanced CKD, he may need dialysis at some point in the future He had AMS when I was rounding this AM: avoid sedative, if able, in the setting of FILIBERTO on CKD. Follow a renal protective strategy: dose Rx by GFR, avoid NSAIDs, Bactrim and Contrast able Thank you. Qualifiers: Hypervolemia type: other Qualified Code(s): E87.79 - Other fluid overload (2) CKD (chronic kidney disease), stage IV Current Visit: Yes Status: Chronic (3) [id number] renal failure Current Visit: No Status: Acute (4) Anasarca Current Visit: No Status: Acute Subjective Principal diagnosis: Anasarca Interval history: Pt was s/e earlier today. He was altered and unable to engage in conversation. No friends or family at bedside. This AMS limited further history from him today , but I reviewed the hand-from my colleague Dr. Douglas: FILIBERTO on CKD with anasarca. Objective - Vital Signs Vital signs: Vital Signs Temp Pulse Resp BP Pulse Ox 08/01/16 08:21 97.4 F L 65 18 116/63 100 08/01/16 04:12 97.6 F 120 20 111/69 95 08/01/16 01:03 97.6 F 122 18 130/82 96 07/31/16 20:33 99 07/31/16 20:19 99 07/31/16 19:48 97.7 F 66 16 119/66 99 Intake and Output 07/31/16 08/01/16 08/01/16 23:59 07:59 15:59 Intake Total 0 / 0 Output Total 600 / 600 0 / 0 Balance -600 / -600 0 / 0 Intake: Oral 0 / 0 Output: Urine 0 / 0 Catheter 600 / 600 Other: Weight 90.1 kg Patient Weight 08/01/16 23:59 Weight 90.1 kg - General Appearance General appearance: Present: well-developed, chronically ill, fatigue, frail EENT: Present: ATNC, mucous membranes moist Neck: Present: supple Respiratory: Present: course breath sounds Cardiology: Present: edema, regular rate, normal S1, normal S2 Gastrointestinal: Present: normoactive bowel sounds, no guarding, no organomegaly Integumentary: Present: no rash, warm and dry Neurologic: Present: confused, disoriented Musculoskeletal: Present: no deformities, no clubbing - Lab 08/01/16 05:03 08/01/16 05:03 Most recent lab results Calcium 8.6 mg/dL (8.6-10.8) 08/01/16 05:03 Consult Discharge Plan - Plan Referrals: Roberta Berrios MD [Primary Care Provider] -
--- NOTE | 2016-08-01 12:53 | Palliative - Consult Note ---
Date of Encounter: 08/01/16 Time of Encounter: 09:15 - Assessment and Plan (1) Congestive heart failure Current Visit: Yes Status: Chronic Assessment and plan: Management of fluid overload per hospitalist. Qualifiers: Congestive heart failure type: systolic Congestive heart failure chronicity : chronic Qualified Code(s): I50.22 - Chronic systolic (congestive) heart failure (2) Goals of care, counseling/discussion Current Visit: No Status: Acute Assessment and plan: Patient now agreeable to ECF for rehab upon discharge. Plan for family meeting when son is available to review goals of care. Son (Umesh King) will be unavailable today. (3) Debility Current Visit: Yes Status: Acute Assessment and plan: Plan for discharge to ECF for rehab when stable. Consider PT/OT consult. Palliative-CN HPI - Data of Consult Patient: known to practice within the last 3 years Consult date: 08/01/16 Requesting Physician: Phillip Camara MD Primary Care Provider: Roberta Berrios, - Consult Narrative Palliative Care/Comfort Measures: Palliative care Reason for consult: Goals of care History of present illness: Mr. King is a 85 year old male admitted to [facility] with increasing edema. Mr. king had a recent admission for congestive heart failure and was just discharged 2 days ago. He is accompanied by his home health nurse who assists in history taking. She reports that prior to discharge he was well above his baseline weight and did not adequately diuresis at home. Mr. king has baseline chronic kidney disease and follows with nephrology. He also has a history of cirrhosis with ascites that has required paracentesis in the past. 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 He does have home health care provided through [facility]. Passport services are available to he and his for approximately 5 hours a piece in a day. His home health nurse visits twice daily. Upon initial consultation with Mr. king, he is very tired and unwilling to participate in conversation. CC: Phillip Camara MD Past Med Surg Social Fam HX - Past Medical History Source: patient, old records reviewed Medical history: atrial fibrillation, CHF, coronary artery disease, hyperlipidemia, hypertension, myocardial infarction, peripheral artery disease, renal disease (CKD stage III), other (renal artery stenosis s/p left renal artery stent, CKD stage III, AAA, PAD, ) Psychiatric history: no psych history - Past Surgical History Surgical History: angioplasty/stent, carotid endarterectomy (bilateral), coronary bypass (CABG), pacemaker/AICD, vascular surgery (right fem-pop bypass) , other, pacemaker (dual chamber) - Social History Smoking Status: Never smoker Smokeless Tobacco Status: No Alcohol use: none Drug use: none Current living situation: Home, With Family Activity Level: Uses cane/walker - Family History Father History Unknown: Yes Name: Fidel King Living Status: Age at : 65 Cause of : Heart disease Hx Family Cardiac Disorders: Yes Hx Family Endocrine Disorder: Yes Medications and Allergies Atorvastatin [Lipitor] 40 mg PO HS 06/08/15 [History] Gabapentin [Neurontin] 600 mg PO HS 06/08/15 [History] Garlic 1,000 mg PO DAILY 06/08/15 [History] Loratadine [Claritin] 10 mg PO DAILY PRN 06/08/15 [History] Metoprolol [Lopressor] 50 mg PO BID 06/08/15 [History] Multivitamin [Flintstones] 1 each PO DAILY 06/08/15 [History] [place]-3S/Dha/Epa/Fish Oil [Fish Oil 1,200 mg Softgel] 1 each PO DAILY 06/08/15 [ History] Tamsulosin [Flomax] 0.4 mg PO BID 06/08/15 [History] Montelukast [Singulair] 10 mg PO HS 11/05/15 [History] Isosorbide MONOnitrate (24 HR) [Imdur] 30 mg PO DAILY 30 Days 11/07/15 [Rx] Fluticasone Propionate Nasal [Flonase] 50 mcg NS DAILY 11/09/15 [History] Latanoprost 1 drop BOTH EYES HS 11/28/15 [History] Amlodipine Besylate 10 mg PO DAILY 06/12/16 [History] Ceramides 1,3,6-11 [Cerave] 1 appl TP BID 06/12/16 [History] Hydroxyzine HCl 25 mg PO Q8H PRN 06/12/16 [History] Ferrous Sulfate 325 mg PO BID #60 tablet 07/30/16 [Rx] Lactulose 30 gm PO TID #90 udc 07/30/16 [Rx] Lisinopril [Zestril] 10 mg PO DAILY #30 tablet 07/30/16 [Rx] Potassium Chloride 10 meq PO BIDWM #60 tab.er.prt 07/30/16 [Rx] Furosemide [Lasix] 80 mg PO BID 07/31/16 [History] Warfarin [Coumadin] 2.5 mg PO SUTUTHSA 07/31/16 [History] Warfarin [Coumadin] 5 mg PO MOWEFR 07/31/16 [History] Allergies clopidogrel [From Plavix] Allergy (Verified 05/06/16 09:07) Itching Cortisone Allergy (Verified 05/06/16 09:07) Joint Pain - Constitutional Constitutional ROS PAL: decreased appetite, no weight loss (wieght gain related to fluid retention) - EENT Eyes: no change in vision Ears, nose, mouth, throat: no dysphagia, no mouth pain, no sore throat - Cardiovascular Cardiovascular ROS: leg edema, pedal edema, no chest pain, no chest pain at rest , no chest pain with activity, no dyspnea on exertion - Respiratory Respiratory: no cough, no dyspnea on exertion - Gastrointestinal Gastrointestinal: no abdominal pain, no constipation, no diarrhea, no nausea, no vomiting - Genitourinary Genitourinary ROS male: no difficulty urinating - Musculoskeletal Musculoskeletal ROS IM: muscle weakness - Integumentary ROS Integumentary: no wounds - Neurological Neurological ROS: no lack of coordination - Psychiatric Psychiatric general PM: no anxiety Palliative Care-Exam - Constitutional Vitals: Temp Pulse Resp BP Pulse Ox 97.3 F L 72 20 120/78 100 08/01/16 11:36 08/01/16 11:36 08/01/16 11:36 08/01/16 11:36 08/01/16 11:36 Exam: 85 year old male patient, appearing chronically ill, hard of hearing. - Eye Eye exam: Present: EOMI Pupils: Present: PERRL - ENT ENT exam: Present: mucous membranes moist - Expanded ENT Exam Mouth Exam: Present: trismus - Respiratory Respiratory exam: Present: decreased breath sounds - Cardiovascular Cardiovascular exam: Present: RRR, systolic murmur - GI/Abdominal Exam GI/Abdominal exam: Present: normal bowel sounds. Absent: tenderness - Catheter Type: Urethral (Guerrero) - Expanded Upper Extremities Exam Hand wrist exam: Present: swelling - Expanded Lower Extremities Exam Lower Leg exam: Present: swelling - Neurological Exam Neurological exam: Present: alert, oriented X3, strengths equal and symetr throughout (generalizes weakness) - Psychiatric Psychiatric exam: Present: flat affect - Skin Skin exam: Present: dry, warm Internal Medicine - CN: Reslt - Labs CBC & Chem 7: 08/01/16 05:03 08/01/16 05:03 Labs: Short CBC 08/01/16 Range/Units 05:03 WBC 6.6 (4.3-11.1) K/mcL Hgb 9.3 L (12.9-16.9) g/dL Hct 27.9 L (37.5-50.1) % Plt Count 126 L (140-400) K/mcL Neutrophils # 5.0 (1.6-8.9) K/mcL BMP 08/01/16 05:03 Sodium 131 L Potassium 4.0 Chloride 91 L Carbon Dioxide 28 BUN 98 H Creatinine 3.20 H Glucose 104 H Calcium 8.6 Cardiac Enzymes 07/31/16 Range/Units 18:21 Troponin I 0.15 H* (0-0.03) ng/mL Urine 07/31/16 Range/Units 20:10 Urine Color Dark Yellow (Yellow) Urine Clarity Cloudy A (Clear) Urine pH 7.5 (5.0-8.0) pH Units Ur Specific [place] 1.009 L (1.010-1.025) Urine Protein 30 H (Neg-Trace) mg/dL Urine Glucose (UA) Normal (Normal) mg/dL - ABG Interpretation ABG results: PT/INR, D-dimer PT 19.0 Seconds (9.4-12.1) H 07/31/16 18:21 Consult Discharge Plan - Plan Referrals: Roberta Berrios MD [Primary Care Provider] - Palliative Quality Palliative Quality: Screen for Code Status: NA (Family unavailable, patient unable to participate in conversation), Screen for Goals of Care: NA (See above) , Screen for Pain: Yes, If Pain Regimen Started, Initiate Bowel Regimen: NA, Screen for Nausea/Vomitting: Yes
[2016-08-01] MEDS ORDERED: Preparation H Ointment 30 GM TUBE TP PRN (15:28)
[2016-08-01 16:27] LABS: INR 1.7; Prothrombin Time 18.4 Seconds (9.4-12.1)
[2016-08-01] MEDS: Furosemide 20 MG/2 ML VIAL IVP SCH (17:02)
[2016-08-01] MEDS: *HR* Warfarin 5 MG TABLET PO SCH (17:03)
--- NOTE | 2016-08-01 18:12 | Internal Med Progress Note ---
Date of Encounter: 08/01/16 Time of Encounter: 15:00 - Assessment and plan (1) Debility Current Visit: Yes Status: Acute Assessment and plan: PTOT and evaluation for subacute rehabilitation. (2) Fluid overload Current Visit: Yes Status: Acute Assessment and plan: continue with Lasix 1000 mL fluid restriction.daily weights. Qualifiers: Hypervolemia type: other Qualified Code(s): E87.79 - Other fluid overload (3) CKD (chronic kidney disease), stage IV Current Visit: Yes Status: Chronic Assessment and plan: avoid nephrotoxins. appreciate nephrology consult. (4) Congestive heart failure Current Visit: Yes Status: Chronic Assessment and plan: IV Lasix. Continue beta shaw. Qualifiers: Congestive heart failure type: systolic Congestive heart failure chronicity : chronic Qualified Code(s): I50.22 - Chronic systolic (congestive) heart failure (5) Anasarca Current Visit: No Status: Acute (6) CHF exacerbation Current Visit: No Status: Acute Qualifiers: Congestive heart failure type: systolic Qualified Code(s): I50.23 - Acute on chronic systolic (congestive) heart failure (7) Cryptogenic cirrhosis of liver Current Visit: No Status: Acute Assessment and plan: continue lactullose. Check ammonia in the morning. (8) DVT prophylaxis Current Visit: No Status: Acute (9) UTI (urinary tract infection) Current Visit: No Status: Acute Assessment and plan: start Rocephin empirically. Follow up urine culture and sensitivities. Qualifiers: Urinary tract infection type: acute cystitis Hematuria presence: without hematuria Qualified Code(s): N30.00 - Acute cystitis without hematuria - Subjective Interval history: patient was discharged 2 days ago to home. re-presented with yesterday with lower extremity swelling and weakness. he is close to his baseline which is extremely por, bedbound. he was strongly advised to accep dcharged to subacute rehabilitation 2 knight ago howver he adamantly refused and asked to be scharged home. He basically represents to the hospial t failure to function at home due to advanced chronic medical conditions including heart failure and renal failure. - Constitutional Vitals: Temp Pulse Resp BP Pulse Ox 97.4 F L 71 18 112/74 95 08/01/16 16:06 08/01/16 16:06 08/01/16 16:06 08/01/16 16:06 08/01/16 16:06 General appearance: Present: no acute distress - Respiratory Respiratory exam: Present: CTAB. Absent: accessory muscle use, rales, rhonchi, wheezes - Cardiovascular Cardiovascular exam: Present: RRR, +S1, +S2. Absent: diastolic murmur, gallop, rubs, systolic murmur - GI/Abdominal GI/Abdominal exam: Present: normal bowel sounds, soft, no peritoneal signs. Absent: distended, tenderness - Extremities Exam Extremities exam: Present: pedal edema, warm, radial pulses palpable and symetrical. Absent: calf tenderness, cyanotic - Neurological Exam Neurological exam: Present: CN II-XII intact, no focal deficits. Absent: facial droop Additional comments: lethargic - Skin Skin exam: Present: dry, intact Internal Medicine: Result - Labs CBC & Chem 7: 08/01/16 05:03 08/01/16 05:03 Labs: Short CBC 08/01/16 Range/Units 05:03 WBC 6.6 (4.3-11.1) K/mcL Hgb 9.3 L (12.9-16.9) g/dL Hct 27.9 L (37.5-50.1) % Plt Count 126 L (140-400) K/mcL Neutrophils # 5.0 (1.6-8.9) K/mcL BMP 08/01/16 05:03 Sodium 131 L Potassium 4.0 Chloride 91 L Carbon Dioxide 28 BUN 98 H Creatinine 3.20 H Glucose 104 H Calcium 8.6 Cardiac Enzymes 07/31/16 Range/Units 18:21 Troponin I 0.15 H* (0-0.03) ng/mL Urine 07/31/16 Range/Units 20:10 Urine Color Dark Yellow (Yellow) Urine Clarity Cloudy A (Clear) Urine pH 7.5 (5.0-8.0) pH Units Ur Specific [place] 1.009 L (1.010-1.025) Urine Protein 30 H (Neg-Trace) mg/dL Urine Glucose (UA) Normal (Normal) mg/dL - ABG Interpretation ABG results: PT/INR, D-dimer PT 18.4 Seconds (9.4-12.1) H 08/01/16 16:12 Consult Discharge Plan - Plan Referrals: Roberta Berrios MD [Primary Care Provider] -
[2016-08-01] MEDS: Latanoprost 2.5 ML BOTTLE BOTH EYES SCH (19:56)
[2016-08-02 07:05] LABS: Albumin 2.3 g/dL (3.5-5.0); Albumin/Globulin Ratio 0.5 (1.1-2.2); Bilirubin,Total 2.4 mg/dL (0.2-1.2); Globulin 4.9 g/dL (2.4-3.5); Potassium 3.9 mEq/L (3.5-4.5); Total Protein 7.2 g/dL (6.0-8.3)
[2016-08-02 07:33] LABS: Basophils % 0.2 %; Eosinophils # 0.1 K/mcL (0.0-0.6); Eosinophils % 2.3 %; Hematocrit 29.7 % (37.5-50.1); Immature Granulocytes % 0.3 % (0-4); Lymphocytes # 0.6 K/mcL (0.6-4.6); Lymphocytes % 10.4 %; Mean Corpuscular HGB Conc 33.7 g/dL (31.6-35.5); Mean Corpuscular Hemoglobin 28.3 pg (28.0-33.3); Mean Corpuscular Volume 84.1 fL (83.0-100.0); Mean Platelet Volume 12.2 fL (9.4-12.4); Monocytes # 0.5 K/mcL (0.0-1.3); Neutrophils # 4.8 K/mcL (1.6-8.9); Platelet Count 133 K/mcL (140-400); Red Blood Count 3.53 M/mcL (4.19-5.50); Red Cell Distribution Width 18.6 % (11.5-14.5); Segmented Neutrophils % 78.8 %
[2016-08-02] MEDS: Furosemide 20 MG/2 ML VIAL IVP SCH ×2 (09:39→16:32)
[2016-08-02] MEDS: Lactulose Oral Soln 20 GM/30 ML UDC PO SCH ×2 (09:41→23:19)
[2016-08-02] MEDS: Multivit/Ca/Min/Fe/FA 1 TAB TABLET PO SCH (09:41)
[2016-08-02] MEDS: Isosorbide MONOnitrate (24 HR) 30 MG TAB.ER.24H PO SCH (09:41)
[2016-08-02] MEDS: Fluticasone Propionate Nasal 50 MCG/SPRAY BOTTLE NS SCH (09:42)
[2016-08-02] MEDS: (Omega-3s/Dha/Epa/Fish Oil [Fish Oil 1,200 Mg Softgel PO SCH (09:42)
--- NOTE | 2016-08-02 11:02 | Nephrology Progress Note ---
Date of Encounter: 08/03/16 Time of Encounter: 09:05 - Assessment and Plan (1) Fluid overload Current Visit: Yes Status: Acute Nonoliguric FILIBERTO on CKD stage IV, and slowly improving. Continue IV lasix: titrate based upon UOP and SCr. No urgent dialysis needs today but with his advanced CKD, he may need dialysis at some point in the future He remains very fatigued. Follow a renal protective strategy: dose Rx by GFR, avoid NSAIDs, Bactrim and Contrast able Thank you. Qualifiers: Hypervolemia type: other Qualified Code(s): E87.79 - Other fluid overload (2) CKD (chronic kidney disease), stage IV Current Visit: Yes Status: Chronic Baseline CKD stage IV. (3) [id number]-[id number] renal failure Current Visit: No Status: Acute See above (4) Anasarca Current Visit: No Status: Acute Diuretics as renal function tolerates. Subjective Principal diagnosis: Anasarca Interval history: Pt was s/e earlier today. He was altered and unable to engage in conversation. No friends or family at bedside. This AMS limited further history from him today , again. No family at bedside. Objective - Vital Signs Vital signs: Vital Signs Temp Pulse Resp BP Pulse Ox 08/02/16 09:45 97 08/02/16 07:23 97.3 F L 60 16 144/77 97 08/02/16 04:12 97.4 F L 95 12 110/72 97 08/02/16 00:03 97.3 F L 112 18 107/66 90 L 08/01/16 20:06 94 L 08/01/16 19:53 97.5 F L 73 16 101/60 94 L 08/01/16 16:06 97.4 F L 71 18 112/74 95 08/01/16 11:36 97.3 F L 72 20 120/78 100 Intake and Output 08/01/16 08/02/16 08/02/16 23:59 07:59 15:59 Intake Total 0 / 0 Output Total 1575 / 1575 850 / 850 Balance -1575 / -1575 -850 / -850 Intake: Oral 0 / 0 Output: Urine 0 / 0 Catheter 1575 / 1575 850 / 850 Other: Meal Dinner Percent of Meal Consumed 0% Stool Size Smear Stool Color Brown Weight 86.6 kg Patient Weight 08/02/16 23:59 Weight 86.6 kg - General Appearance General appearance: Present: well-developed, chronically ill, fatigue, frail EENT: Present: ATNC, PERRL Neck: Present: supple Respiratory: Present: clear Cardiology: Present: edema (anasarca up both extremities), normal S1, normal S2 Gastrointestinal: Present: normoactive bowel sounds, no guarding Integumentary: Present: no rash, warm and dry Neurologic: Present: confused Musculoskeletal: Present: no deformities, no erythema, no cyanosis, no clubbing Psychiatric: Present: mood/affect appropriate, cooperative - Lab 08/03/16 07:14 08/03/16 07:14 Most recent lab results Calcium 9.0 mg/dL (8.6-10.8) 08/02/16 06:40 Consult Discharge Plan - Plan Referrals: Roberta Berrios MD [Primary Care Provider] - (most likely to rehab)
--- NOTE | 2016-08-02 12:53 | Palliative Progress Note ---
Date of Encounter: 08/02/16 Time of Encounter: 12:51 - Assessment and plan (1) Congestive heart failure Current Visit: Yes Status: Chronic Assessment and plan: Management per hospitalist. Qualifiers: Congestive heart failure type: systolic Congestive heart failure chronicity : chronic Qualified Code(s): I50.22 - Chronic systolic (congestive) heart failure (2) Goals of care, counseling/discussion Current Visit: No Status: Acute Assessment and plan: Discussed goals of care with Mr. King's son/POA (Umesh King). The two of them had discussed goals in the past. After reviewing the code status options, his son took the handouts and is going to follow up with other family members. In regards to discharge planning, family would prefer 1) [facility] or 2) [facility] for short term rehab with the goal of him returning home with his spouse. We briefly discussed hospice care, but at this time, Mr. Umesh King is not in favor of that option. He is aware of the CKD and Heart Failure. The palliative care team will continue to follow. (3) Debility Current Visit: Yes Status: Acute - Time Spent With Patient Total time spent is greater than 50% in coordination of care (as documented) at patient's floor/unit and/or counseling patient: - Subjective Interval history: Mr. King is more alert today, but remains confused at times. He is sitting up in bed eating his lunch. Edema has improved with fluid balance -2.5L since admission. Bowel movements are regular. - Constitutional Vitals: Abnormal lab results RBC 3.53 M/mcL (4.19-5.50) L 08/02/16 06:40 Hgb 10.0 g/dL (12.9-16.9) L 08/02/16 06:40 Hct 29.7 % (37.5-50.1) L 08/02/16 06:40 RDW 18.6 % (11.5-14.5) H 08/02/16 06:40 Plt Count 133 K/mcL (140-400) L 08/02/16 06:40 PT 18.4 Seconds (9.4-12.1) H 08/01/16 16:12 APTT 39.5 Seconds (26.0-36.0) H 07/31/16 18:21 Sodium 131 mEq/L (136-145) L 08/02/16 06:40 Chloride 92 mEq/L (98-109) L 08/02/16 06:40 BUN 95 mg/dL (8-26) H 08/02/16 06:40 Creatinine 3.08 mg/dL (0.72-1.25) H 08/02/16 06:40 Est GFR ( Amer) 24 (> 60) L 08/02/16 06:40 Est GFR (Non-Af Amer) 19 (> 60) L 08/02/16 06:40 BUN/Creatinine Ratio 31 (6-26) H 08/02/16 06:40 Glucose 103 mg/dL (70-99) H 08/02/16 06:40 Calculated Osmolality 302 (280-300) H 08/02/16 06:40 Total Bilirubin 2.4 mg/dL (0.2-1.2) H 08/02/16 06:40 AST 82 Units/L (5-34) H 08/02/16 06:40 Alkaline Phosphatase 137 Units/L (38-126) H 08/02/16 06:40 Troponin I 0.15 ng/mL (0-0.03) H* 07/31/16 18:21 B-Natriuretic Peptide 2253 pg/mL (0-100) H 07/31/16 18:21 Albumin 2.3 g/dL (3.5-5.0) L 08/02/16 06:40 Globulin 4.9 g/dL (2.4-3.5) H 08/02/16 06:40 Albumin/Globulin Ratio 0.5 (1.1-2.2) L 08/02/16 06:40 Urine Clarity Cloudy (Clear) A 07/31/16 20:10 Ur Specific [place] 1.009 (1.010-1.025) L 07/31/16 20:10 Urine Protein 30 mg/dL (Neg-Trace) H 07/31/16 20:10 Urine Blood Large (Negative) H 07/31/16 20:10 Ur Leukocyte Esterase Moderate (Negative) H 07/31/16 20:10 Urine Microscopic RBC TNTC per hpf (0-3) H 07/31/16 20:10 Urine Microscopic WBC 50-100 per hpf (0-3) H 07/31/16 20:10 Ur Squamous Epith Cells Many per lpf (None-Few) H 07/31/16 20:10 Ur Culture Indicated? YES (NO) A 07/31/16 14:30 General appearance: Present: cooperative, no acute distress - Respiratory Respiratory exam: Present: decreased breath sounds - Cardiovascular Cardiovascular exam: Present: RRR, systolic murmur - GI/Abdominal GI/Abdominal exam: Present: soft. Absent: tenderness - Extremities Exam Extremities exam: Present: pedal edema (improved since admission) - Expanded Upper Extremity Exam Hand wrist exam: Present: swelling (improved from admission) - Neurological Exam Neurological exam: Present: alert (oriented to person and time. Reorients easily), no focal deficits, strengths equal and symetr throughout - Skin Skin exam: Present: dry, warm Palliative Quality Palliative Quality: Screen for Code Status: Yes, Screen for Goals of Care: Yes, Screen for Pain: Yes, If Pain Regimen Started, Initiate Bowel Regimen: NA, Screen for Nausea/Vomitting: Yes Code Status: 08/01/16 15:25 FULL [Resuscitation Status: Active] [RES] Routine Comment: Resuscitation Status: Full Code - Labs CBC & Chem 7: 08/02/16 06:40 08/02/16 06:40 Labs: Laboratory Results - last 24 hr 08/01/16 08/02/16 08/02/16 16:12 06:40 06:40 WBC 6.1 RBC 3.53 L Hgb 10.0 L Hct 29.7 L MCV 84.1 MCH 28.3 MCHC 33.7 RDW 18.6 H Plt Count 133 L MPV 12.2 Immature Gran % 0.3 Seg Neutrophils % 78.8 Lymphocytes % 10.4 Monocytes % 8.0 Eosinophils % 2.3 Basophils % 0.2 Neutrophils # 4.8 Lymphocytes # 0.6 Monocytes # 0.5 Eosinophils # 0.1 Basophils # 0.0 PT 18.4 H INR 1.7 Sodium 131 L Potassium 3.9 Chloride 92 L Carbon Dioxide 28 BUN 95 H Creatinine 3.08 H Est GFR ( Amer) 24 L Est GFR (Non-Af Amer) 19 L BUN/Creatinine Ratio 31 H Glucose 103 H Calculated Osmolality 302 H Calcium 9.0 Total Bilirubin 2.4 H AST 82 H ALT 24 Alkaline Phosphatase 137 H Ammonia Serum Total Protein 7.2 Albumin 2.3 L Globulin 4.9 H Albumin/Globulin Ratio 0.5 L 08/02/16 06:40 WBC RBC Hgb Hct MCV MCH MCHC RDW Plt Count MPV Immature Gran % Seg Neutrophils % Lymphocytes % Monocytes % Eosinophils % Basophils % Neutrophils # Lymphocytes # Monocytes # Eosinophils # Basophils # PT INR Sodium Potassium Chloride Carbon Dioxide BUN Creatinine Est GFR ( Amer) Est GFR (Non-Af Amer) BUN/Creatinine Ratio Glucose Calculated Osmolality Calcium Total Bilirubin AST ALT Alkaline Phosphatase Ammonia 54 Serum Total Protein Albumin Globulin Albumin/Globulin Ratio - ABG Interpretation ABG results: PT/INR, D-dimer PT 18.4 Seconds (9.4-12.1) H 08/01/16 16:12 Consult Discharge Plan - Plan Referrals: Roberta Berrios MD [Primary Care Provider] -
[2016-08-02] MEDS: *HR* Warfarin 2.5 MG TABLET PO SCH (16:35)
--- NOTE | 2016-08-02 19:22 | Internal Med Progress Note ---
Date of Encounter: 08/02/16 Time of Encounter: 12:00 - Assessment and plan (1) Debility Current Visit: Yes Status: Acute Assessment and plan: PTOT and evaluation for subacute rehabilitation. Family agrees to subacute rehabilitation. Patient is agreeable to rehabilitation. Social work consult for disposition planning. (2) Fluid overload Current Visit: Yes Status: Acute Assessment and plan: continue with Lasix IV twice a day. 1000 mL fluid restriction.daily weights. Qualifiers: Hypervolemia type: other Qualified Code(s): E87.79 - Other fluid overload (3) CKD (chronic kidney disease), stage IV Current Visit: Yes Status: Chronic Assessment and plan: avoid nephrotoxins. appreciate nephrology consult. (4) Congestive heart failure Current Visit: Yes Status: Chronic Assessment and plan: IV Lasix. Continue beta shaw. Qualifiers: Congestive heart failure type: systolic Congestive heart failure chronicity : chronic Qualified Code(s): I50.22 - Chronic systolic (congestive) heart failure (5) Anasarca Current Visit: No Status: Acute (6) CHF exacerbation Current Visit: No Status: Acute Assessment and plan: Discussed with palliative care. The patient is hospice eligible. CODE STATUS currently still full code. [facility] meeting to readdress this with patient's son Qualifiers: Congestive heart failure type: systolic Qualified Code(s): I50.23 - Acute on chronic systolic (congestive) heart failure (7) Cryptogenic cirrhosis of liver Current Visit: No Status: Acute Assessment and plan: continue lactullose. Check ammonia in the morning. (8) DVT prophylaxis Current Visit: No Status: Acute (9) UTI (urinary tract infection) Current Visit: No Status: Acute Qualifiers: Urinary tract infection type: acute cystitis Hematuria presence: without hematuria Qualified Code(s): N30.00 - Acute cystitis without hematuria - Subjective Interval history: patient was discharged 2 days ago to home. re-presented with yesterday with lower extremity swelling and weakness. he is close to his baseline which is extremely por, bedbound. he was strongly advised to accep dcharged to subacute rehabilitation 2 knight ago howver he adamantly refused and asked to be scharged home. He basically represents to the hospial t failure to function at home due to advanced chronic medical conditions including heart failure and renal failure. - Constitutional Vitals: Temp Pulse Resp BP Pulse Ox 97.7 F 67 18 126/72 98 08/02/16 17:34 08/02/16 17:34 08/02/16 17:34 08/02/16 17:34 08/02/16 17:34 General appearance: Present: no acute distress - Respiratory Respiratory exam: Present: CTAB. Absent: accessory muscle use, rales, rhonchi, wheezes - Cardiovascular Cardiovascular exam: Present: RRR, +S1, +S2, systolic murmur. Absent: diastolic murmur, gallop, rubs - GI/Abdominal GI/Abdominal exam: Present: normal bowel sounds, soft, no peritoneal signs. Absent: distended, tenderness - Extremities Exam Extremities exam: Present: pedal edema, warm, radial pulses palpable and symetrical. Absent: calf tenderness, cyanotic - Skin Skin exam: Present: dry, intact Internal Medicine: Result - Labs CBC & Chem 7: 08/02/16 06:40 08/02/16 06:40 Labs: Short CBC 08/02/16 Range/Units 06:40 WBC 6.1 (4.3-11.1) K/mcL Hgb 10.0 L (12.9-16.9) g/dL Hct 29.7 L (37.5-50.1) % Plt Count 133 L (140-400) K/mcL Neutrophils # 4.8 (1.6-8.9) K/mcL BMP 08/02/16 06:40 Sodium 131 L Potassium 3.9 Chloride 92 L Carbon Dioxide 28 BUN 95 H Creatinine 3.08 H Glucose 103 H Calcium 9.0 Liver Function 08/02/16 Range/Units 06:40 Total Bilirubin 2.4 H (0.2-1.2) mg/dL AST 82 H (5-34) Units/L ALT 24 (0-55) Units/L Alkaline Phosphatase 137 H (38-126) Units/L Albumin 2.3 L (3.5-5.0) g/dL - ABG Interpretation ABG results: PT/INR, D-dimer PT 18.4 Seconds (9.4-12.1) H 08/01/16 16:12 Consult Discharge Plan - Plan Referrals: Roberta Berrios MD [Primary Care Provider] - (most likely to rehab)
[2016-08-02] MEDS: Latanoprost 2.5 ML BOTTLE BOTH EYES SCH (23:20)
[2016-08-03 07:41] LABS: Basophils % 0.1 %; Eosinophils # 0.1 K/mcL (0.0-0.6); Eosinophils % 0.9 %; Hematocrit 28.8 % (37.5-50.1); Hemoglobin 9.7 g/dL (12.9-16.9); Immature Granulocytes % 0.6 % (0-4); Lymphocytes # 0.7 K/mcL (0.6-4.6); Lymphocytes % 9.3 %; Mean Corpuscular HGB Conc 33.7 g/dL (31.6-35.5); Mean Corpuscular Hemoglobin 27.9 pg (28.0-33.3); Mean Corpuscular Volume 82.8 fL (83.0-100.0); Mean Platelet Volume 11.7 fL (9.4-12.4); Monocytes # 0.7 K/mcL (0.0-1.3); Monocytes % 10.5 %; Neutrophils # 5.5 K/mcL (1.6-8.9); Platelet Count 134 K/mcL (140-400); Red Blood Count 3.48 M/mcL (4.19-5.50); Red Cell Distribution Width 18.7 % (11.5-14.5); Segmented Neutrophils % 78.6 %
[2016-08-03 08:01] LABS: Calcium 8.9 mg/dL (8.6-10.8); Magnesium 2.4 mg/dL (1.6-2.6); Phosphorous 4.4 mg/dL (2.3-4.7); Potassium 3.5 mEq/L (3.5-4.5)
[2016-08-03 09:26] LABS: Prothrombin Time 22.4 Seconds (9.4-12.1)
--- NOTE | 2016-08-03 09:31 | Nephrology Progress Note ---
Date of Encounter: 08/03/16 Time of Encounter: 11:00 - Assessment and Plan (1) Fluid overload Current Visit: Yes Status: Acute Nonoliguric FILIBERTO on CKD stage IV, and slowly improving. Continue IV lasix: titrate based upon UOP and SCr. No urgent dialysis needs today but with his advanced CKD, he may need dialysis at some point in the future He remains very fatigued. Follow a renal protective strategy: dose Rx by GFR, avoid NSAIDs, Bactrim and Contrast able Thank you. Qualifiers: Hypervolemia type: other Qualified Code(s): E87.79 - Other fluid overload (2) CKD (chronic kidney disease), stage IV Current Visit: Yes Status: Chronic Baseline CKD stage IV. (3) [id number] renal failure Current Visit: No Status: Acute See above (4) Anasarca Current Visit: No Status: Acute Diuretics as renal function tolerates. Subjective Principal diagnosis: Anasarca Interval history: Pt was s/e earlier today. He was altered and unable to engage in conversation. No friends or family at bedside. This AMS limited further history from him today , again. No family at bedside. Objective - Vital Signs Vital signs: Vital Signs Temp Pulse Resp BP Pulse Ox 08/03/16 07:45 97.8 F 67 16 121/63 98 08/03/16 05:55 98 F 08/03/16 05:09 96.4 F L 86 15 118/86 98 08/03/16 03:20 97.9 F 71 14 123/71 97 08/02/16 19:30 97.7 F 85 14 143/69 98 08/02/16 17:34 97.7 F 67 18 126/72 98 08/02/16 11:59 97.7 F 65 18 131/71 98 08/02/16 09:45 97 Intake and Output 08/02/16 08/03/16 08/03/16 23:59 07:59 15:59 Intake Total 240 / 240 Output Total 750 / 750 Balance -750 / -750 240 / 240 Intake: Oral 240 / 240 Output: Catheter 750 / 750 Other: Meal Dinner Breakfast Percent of Meal Consumed 30% 100% Weight 85 kg Patient Weight 08/03/16 23:59 Weight 85 kg - General Appearance General appearance: Present: chronically ill, fatigue, frail EENT: Present: mucous membranes moist Neck: Present: supple Respiratory: Present: clear Cardiology: Present: edema (1-2+ pretibial pitting edema b/l ), normal S1, normal S2 Gastrointestinal: Present: normoactive bowel sounds, no tenderness, no guarding Integumentary: Present: warm and dry Neurologic: Present: confused, disoriented Musculoskeletal: Present: no deformities, no clubbing Psychiatric: Present: mood/affect appropriate, cooperative - Lab 08/04/16 04:39 08/04/16 04:39 Most recent lab results Calcium 8.9 mg/dL (8.6-10.8) 08/03/16 07:14 Phosphorus 4.4 mg/dL (2.3-4.7) 08/03/16 07:14 Magnesium 2.4 mg/dL (1.6-2.6) 08/03/16 07:14 Consult Discharge Plan - Plan Referrals: Roberta Berrios MD [Primary Care Provider] - (most likely to rehab)
[2016-08-03] MEDS: Isosorbide MONOnitrate (24 HR) 30 MG TAB.ER.24H PO SCH (09:33)
[2016-08-03] MEDS: Multivit/Ca/Min/Fe/FA 1 TAB TABLET PO SCH (09:33)
[2016-08-03] MEDS: Lactulose Oral Soln 20 GM/30 ML UDC PO SCH ×2 (09:33→21:00)
[2016-08-03] MEDS: Furosemide 20 MG/2 ML VIAL IVP SCH ×2 (09:33→17:08)
[2016-08-03] MEDS: Fluticasone Propionate Nasal 50 MCG/SPRAY BOTTLE NS SCH (09:34)
--- NOTE | 2016-08-03 09:41 | Palliative Progress Note ---
Date of Encounter: 08/03/16 Time of Encounter: 09:20 - Assessment and plan (1) Congestive heart failure Current Visit: Yes Status: Chronic Assessment and plan: Management per hospitalist. Qualifiers: Congestive heart failure type: systolic Congestive heart failure chronicity : chronic Qualified Code(s): I50.22 - Chronic systolic (congestive) heart failure (2) Goals of care, counseling/discussion Current Visit: No Status: Acute Assessment and plan: Discussed goals of care with Mr. King's son/POA (Umesh King) yesterday. Awaiting further conversation from the son regarding code status. He took information home with him yesterday to discuss with the rest of the family. The palliative care team will continue to follow. (3) Debility Current Visit: Yes Status: Acute - Time Spent With Patient Total time spent is greater than 50% in coordination of care (as documented) at patient's floor/unit and/or counseling patient: - Subjective Interval history: Mr. King is remains confused at times. He is able to state he is in the hospital along with his name, but conversation is limited. He was fed breakfast by staff. Edema has improved. Bowel movements are regular. - Constitutional Vitals: Abnormal lab results RBC 3.48 M/mcL (4.19-5.50) L 08/03/16 07:14 Hgb 9.7 g/dL (12.9-16.9) L 08/03/16 07:14 Hct 28.8 % (37.5-50.1) L 08/03/16 07:14 MCV 82.8 fL (83.0-100.0) L 08/03/16 07:14 MCH 27.9 pg (28.0-33.3) L 08/03/16 07:14 RDW 18.7 % (11.5-14.5) H 08/03/16 07:14 Plt Count 134 K/mcL (140-400) L 08/03/16 07:14 PT 22.4 Seconds (9.4-12.1) H 08/03/16 09:16 APTT 39.5 Seconds (26.0-36.0) H 07/31/16 18:21 Sodium 134 mEq/L (136-145) L 08/03/16 07:14 Chloride 95 mEq/L (98-109) L 08/03/16 07:14 BUN 90 mg/dL (8-26) H 08/03/16 07:14 Creatinine 2.89 mg/dL (0.72-1.25) H 08/03/16 07:14 Est GFR ( Amer) 25 (> 60) L 08/03/16 07:14 Est GFR (Non-Af Amer) 21 (> 60) L 08/03/16 07:14 BUN/Creatinine Ratio 31 (6-26) H 08/03/16 07:14 Glucose 116 mg/dL (70-99) H 08/03/16 07:14 Calculated Osmolality 307 (280-300) H 08/03/16 07:14 Total Bilirubin 2.4 mg/dL (0.2-1.2) H 08/02/16 06:40 AST 82 Units/L (5-34) H 08/02/16 06:40 Alkaline Phosphatase 137 Units/L (38-126) H 08/02/16 06:40 Troponin I 0.15 ng/mL (0-0.03) H* 07/31/16 18:21 B-Natriuretic Peptide 2253 pg/mL (0-100) H 07/31/16 18:21 Albumin 2.3 g/dL (3.5-5.0) L 08/02/16 06:40 Globulin 4.9 g/dL (2.4-3.5) H 08/02/16 06:40 Albumin/Globulin Ratio 0.5 (1.1-2.2) L 08/02/16 06:40 Urine Clarity Cloudy (Clear) A 07/31/16 20:10 Ur Specific Hazard 1.009 (1.010-1.025) L 07/31/16 20:10 Urine Protein 30 mg/dL (Neg-Trace) H 07/31/16 20:10 Urine Blood Large (Negative) H 07/31/16 20:10 Ur Leukocyte Esterase Moderate (Negative) H 07/31/16 20:10 Urine Microscopic RBC TNTC per hpf (0-3) H 07/31/16 20:10 Urine Microscopic WBC 50-100 per hpf (0-3) H 07/31/16 20:10 Ur Squamous Epith Cells Many per lpf (None-Few) H 07/31/16 20:10 Ur Culture Indicated? YES (NO) A 07/31/16 14:30 General appearance: Present: cooperative, no acute distress Exam: 85 year old male patient sitting up in bed. Pleasantly confused with limited conversation. - Eye Eye exam: Present: EOMI - Respiratory Respiratory exam: Present: decreased breath sounds - Cardiovascular Cardiovascular exam: Present: RRR, systolic murmur - GI/Abdominal GI/Abdominal exam: Present: firm, normal bowel sounds. Absent: tenderness - Additional comments: high catheter intact with dark urine - Extremities Exam Extremities exam: Present: pedal edema - Neurological Exam Neurological exam: Present: alert (oriented to person and place) - Skin Skin exam: Present: dry, warm Palliative Quality Palliative Quality: Screen for Code Status: Yes, Screen for Goals of Care: Yes, Screen for Pain: Yes, If Pain Regimen Started, Initiate Bowel Regimen: NA, Screen for Nausea/Vomitting: Yes Code Status: 08/01/16 15:25 FULL [Resuscitation Status: Active] [RES] Routine Comment: Resuscitation Status: Full Code - Labs CBC & Chem 7: 08/03/16 07:14 08/03/16 07:14 Labs: Laboratory Results - last 24 hr 08/03/16 08/03/16 08/03/16 07:14 07:14 09:16 WBC 7.0 RBC 3.48 L Hgb 9.7 L Hct 28.8 L MCV 82.8 L MCH 27.9 L MCHC 33.7 RDW 18.7 H Plt Count 134 L MPV 11.7 Immature Gran % 0.6 Seg Neutrophils % 78.6 Lymphocytes % 9.3 Monocytes % 10.5 Eosinophils % 0.9 Basophils % 0.1 Neutrophils # 5.5 Lymphocytes # 0.7 Monocytes # 0.7 Eosinophils # 0.1 Basophils # 0.0 PT 22.4 H INR 2.0 Sodium 134 L Potassium 3.5 Chloride 95 L Carbon Dioxide 27 BUN 90 H Creatinine 2.89 H Est GFR ( Amer) 25 L Est GFR (Non-Af Amer) 21 L BUN/Creatinine Ratio 31 H Glucose 116 H Calculated Osmolality 307 H Calcium 8.9 Phosphorus 4.4 Magnesium 2.4 - ABG Interpretation ABG results: PT/INR, D-dimer PT 22.4 Seconds (9.4-12.1) H 08/03/16 09:16 Consult Discharge Plan - Plan Referrals: Roberta Berrios MD [Primary Care Provider] - (most likely to rehab)
[2016-08-03] MEDS: (Omega-3s/Dha/Epa/Fish Oil [Fish Oil 1,200 Mg Softgel PO SCH (09:47)
[2016-08-03] MEDS: *HR* Warfarin 2.5 MG TABLET PO SCH (17:10)
--- NOTE | 2016-08-03 18:44 | Internal Med Progress Note ---
Date of Encounter: 08/03/16 Time of Encounter: 15:00 - Assessment and plan (1) Debility Current Visit: Yes Status: Acute Assessment and plan: PTOT and evaluation for subacute rehabilitation. Family agrees to subacute rehabilitation. Patient is agreeable to rehabilitation. Social work consult for disposition planning. (2) Fluid overload Current Visit: Yes Status: Acute Assessment and plan: continue with Lasix IV twice a day. 1000 mL fluid restriction.daily weights. Qualifiers: Hypervolemia type: other Qualified Code(s): E87.79 - Other fluid overload (3) CKD (chronic kidney disease), stage IV Current Visit: Yes Status: Chronic Assessment and plan: avoid nephrotoxins. appreciate nephrology consult. (4) Congestive heart failure Current Visit: Yes Status: Chronic Assessment and plan: IV Lasix. Continue beta shaw. Qualifiers: Congestive heart failure type: systolic Congestive heart failure chronicity : chronic Qualified Code(s): I50.22 - Chronic systolic (congestive) heart failure (5) Anasarca Current Visit: No Status: Acute (6) CHF exacerbation Current Visit: No Status: Acute Assessment and plan: Discussed with palliative care. The patient is hospice eligible. CODE STATUS currently still full code. Patient has a very poor prognosis due to advanced age and multiple end-stage comorbidities. He is at high risk for morbidity and mortality and complications due to acute change in mental status in addition to advanced comorbidities. I appreciate palliative care and blood. Plan for family meeting tomorrow. Qualifiers: Congestive heart failure type: systolic Qualified Code(s): I50.23 - Acute on chronic systolic (congestive) heart failure (7) Cryptogenic cirrhosis of liver Current Visit: No Status: Acute Assessment and plan: continue lactullose. Check ammonia in the morning. (8) DVT prophylaxis Current Visit: No Status: Acute (9) UTI (urinary tract infection) Current Visit: No Status: Acute Assessment and plan: Likely this is contributing to altered mental status. Continue with Rocephin empirically. Follow up urine culture and sensitivities. Qualifiers: Urinary tract infection type: acute cystitis Hematuria presence: without hematuria Qualified Code(s): N30.00 - Acute cystitis without hematuria - Subjective Interval history: History is limited by the patient's mental status and confusion. He appears to be more confused than he was yesterday. There is no family available to provide additional history. Per nurse the patient has been more somnolent than yesterday. with lower extremity swelling and weakness. he is close to his baseline which is extremely por, bedbound. he was strongly advised to accep dcharged to subacute rehabilitation 2 knight ago howver he adamantly refused and asked to be scharged home. He basically represents to the hospial t failure to function at home due to advanced chronic medical conditions including heart failure and renal failure. - Constitutional Vitals: Temp Pulse Resp BP Pulse Ox 97.8 F 64 16 107/56 97 08/03/16 15:36 08/03/16 15:36 08/03/16 15:36 08/03/16 15:36 08/03/16 15:36 General appearance: Present: no acute distress Exam: Lethargic, arousable, confused. - Eye Eye exam: Present: PERRL, scleral icterus, conjuntiva pink Pupils: Present: PERRL - Respiratory Respiratory exam: Present: CTAB. Absent: accessory muscle use, rales, rhonchi, wheezes - Cardiovascular Cardiovascular exam: Present: RRR, +S1, +S2. Absent: diastolic murmur, gallop, rubs, systolic murmur - GI/Abdominal GI/Abdominal exam: Present: distended, normal bowel sounds, soft, no peritoneal signs. Absent: tenderness Internal Medicine: Result - Labs CBC & Chem 7: 08/03/16 07:14 08/03/16 07:14 Labs: Short CBC 08/03/16 Range/Units 07:14 WBC 7.0 (4.3-11.1) K/mcL Hgb 9.7 L (12.9-16.9) g/dL Hct 28.8 L (37.5-50.1) % Plt Count 134 L (140-400) K/mcL Neutrophils # 5.5 (1.6-8.9) K/mcL BMP 08/03/16 07:14 Sodium 134 L Potassium 3.5 Chloride 95 L Carbon Dioxide 27 BUN 90 H Creatinine 2.89 H Glucose 116 H Calcium 8.9 - ABG Interpretation ABG results: PT/INR, D-dimer PT 22.4 Seconds (9.4-12.1) H 08/03/16 09:16 Consult Discharge Plan - Plan Referrals: Roberta Berrios MD [Primary Care Provider] - (most likely to rehab)
[2016-08-03] MEDS: Latanoprost 2.5 ML BOTTLE BOTH EYES SCH (21:01)
[2016-08-04 05:25] LABS: Basophils % 0.2 %; Eosinophils # 0.1 K/mcL (0.0-0.6); Eosinophils % 0.9 %; Hematocrit 29.4 % (37.5-50.1); Hemoglobin 9.7 g/dL (12.9-16.9); Immature Granulocytes % 0.3 % (0-4); Lymphocytes # 0.8 K/mcL (0.6-4.6); Lymphocytes % 12.2 %; Mean Corpuscular Hemoglobin 27.9 pg (28.0-33.3); Mean Corpuscular Volume 84.5 fL (83.0-100.0); Mean Platelet Volume 11.5 fL (9.4-12.4); Monocytes # 0.7 K/mcL (0.0-1.3); Monocytes % 10.8 %; Platelet Count 119 K/mcL (140-400); Red Blood Count 3.48 M/mcL (4.19-5.50); Red Cell Distribution Width 19.1 % (11.5-14.5); Segmented Neutrophils % 75.6 %
[2016-08-04 05:31] LABS: Calcium 8.7 mg/dL (8.6-10.8); Phosphorous 3.8 mg/dL (2.3-4.7); Potassium 3.1 mEq/L (3.5-4.5)
[2016-08-04] MEDS: Furosemide 20 MG/2 ML VIAL IVP SCH (07:53)
[2016-08-04] MEDS: Lactulose Oral Soln 20 GM/30 ML UDC PO SCH ×2 (07:56→21:49)
[2016-08-04] MEDS: Fluticasone Propionate Nasal 50 MCG/SPRAY BOTTLE NS SCH (07:56)
[2016-08-04] MEDS: Isosorbide MONOnitrate (24 HR) 30 MG TAB.ER.24H PO SCH (07:56)
[2016-08-04] MEDS: (Omega-3s/Dha/Epa/Fish Oil [Fish Oil 1,200 Mg Softgel PO SCH (07:57)
[2016-08-04] MEDS: Multivit/Ca/Min/Fe/FA 1 TAB TABLET PO SCH (07:57)
--- NOTE | 2016-08-04 10:00 | Nephrology Progress Note ---
Date of Encounter: 08/04/16 Time of Encounter: 09:40 - Assessment and Plan (1) Fluid overload Current Visit: Yes Status: Acute Nonoliguric acute kidney injury on chronic kidney disease stage IV. Continues to slowly improve. Transition IV Lasix to home dose by mouth in anticipation of discharge. No need for renal replacement therapy at this time. Continue renal protective strategy and dose medications accordingly. Qualifiers: Hypervolemia type: other Qualified Code(s): E87.79 - Other fluid overload (2) Acute kidney injury superimposed on chronic kidney disease Current Visit: Yes Status: Acute (3) Hypokalemia Current Visit: Yes Status: Acute Replete. (4) Systolic congestive heart failure Current Visit: Yes Status: Chronic Transthoracic echocardiogram 07/26/2016 reveals an ejection fraction of 35%. Current fluid overload likely multifactorial. Transitioning to oral Lasix in anticipation of discharge. CALVIN inhibitor was held on admission due to acute kidney injury. Due to the patient's systolic heart failure recommendation would be to restart low-dose CALVIN inhibitor on discharge. Qualifiers: Congestive heart failure chronicity: chronic Qualified Code(s): I50.22 - Chronic systolic (congestive) heart failure Subjective Principal diagnosis: Anasarca Interval history: Patient seen and examined at the bedside. No acute events overnight per nursing staff. Patient is unfortunately altered and unable to participate in exam. No family currently at bedside. Objective - Vital Signs Vital signs: Vital Signs Temp Pulse Resp BP Pulse Ox 08/04/16 08:04 95 08/04/16 07:17 97.9 F 72 16 127/67 92 L 08/04/16 04:55 97.9 F 67 16 119/61 97 08/04/16 00:59 98.2 F 71 18 128/50 98 08/03/16 21:00 97 08/03/16 20:37 97.8 F 79 19 147/75 97 08/03/16 15:36 97.8 F 64 16 107/56 97 08/03/16 11:30 98 F 68 16 131/66 96 Intake and Output 08/03/16 08/04/16 08/04/16 23:59 07:59 15:59 Intake Total 120 / 120 0 / 0 120 / 120 Balance 120 / 120 0 / 0 120 / 120 Intake: Oral 120 / 120 0 / 0 120 / 120 Other: Meal Dinner Percent of Meal Consumed 90% Stool Size Small Stool Consistency soft Stool Color Brown # Urine Diapers 1 # Bowel Movements 1 Weight 85.1 kg Patient Weight 08/04/16 23:59 Weight 85.1 kg - General Appearance Exam: General: Patient is alert and in no acute distress, chronically ill-appearing HEENT: Normocephalic atraumatic, pupils are equal round and reactive to light and accommodation, tympanic membrane is intact, nares is patent, mucous membranes moist, throat is not injected, no JVD, trachea is midline Cardiovascular: Regular rate and rhythm without murmur Respiratory: Lungs are clear to auscultation bilaterally, no wheezing, rhonchi, rales Abdomen: Soft, nontender, nondistended, positive bowel sounds in all 4 quadrants Extremities: Improving anasarca of both upper and lower extremities Neuro: Nonfocal exam, confused - Lab 08/04/16 04:39 08/04/16 04:39 Most recent lab results Calcium 8.7 mg/dL (8.6-10.8) 08/04/16 04:39 Phosphorus 3.8 mg/dL (2.3-4.7) 08/04/16 04:39 Magnesium 2.4 mg/dL (1.6-2.6) 08/03/16 07:14 Consult Discharge Plan - Plan Referrals: Roberta Berrios MD [Primary Care Provider] - (most likely to rehab)
--- NOTE | 2016-08-04 15:04 | Palliative Progress Note ---
Date of Encounter: 08/04/16 Time of Encounter: 10:00 - Assessment and plan (1) Congestive heart failure Current Visit: Yes Status: Chronic Assessment and plan: Management per hospitalist. Qualifiers: Congestive heart failure type: systolic Congestive heart failure chronicity : chronic Qualified Code(s): I50.22 - Chronic systolic (congestive) heart failure (2) Goals of care, counseling/discussion Current Visit: No Status: Acute Assessment and plan: Discussed goals of care with Mr. King's son/POA (Umesh King). We reviewed code status discussion from prior days. After speaking with the remaining family, Mr. Herrera King (son) reports that the patiet's previously known intent was to not have CPR or be placed on a ventilator. He is agreeable for him to receive treatment for his infection with IV ATB. We discussed physical exam, diagnostic testing, medications. The palliative care team will continue to follow. (3) Debility Current Visit: Yes Status: Acute Assessment and plan: Physical therapy and occupational therapy consulted. Recommend SNF upon discharge. - Time Spent With Patient Total time spent is greater than 50% in coordination of care (as documented) at patient's floor/unit and/or counseling patient: - Subjective Interval history: Mr. King was evaluated this morning at 10:00. He remains confused at times. He is oriented to person and "hospital", but conversation is inappropriate. His appetite is poor. Mr. King was able to participate in therapy somewhat, but had difficulty following commands. - Constitutional Vitals: Abnormal lab results RBC 3.48 M/mcL (4.19-5.50) L 08/04/16 04:39 Hgb 9.7 g/dL (12.9-16.9) L 08/04/16 04:39 Hct 29.4 % (37.5-50.1) L 08/04/16 04:39 MCH 27.9 pg (28.0-33.3) L 08/04/16 04:39 RDW 19.1 % (11.5-14.5) H 08/04/16 04:39 Plt Count 119 K/mcL (140-400) L 08/04/16 04:39 PT 22.4 Seconds (9.4-12.1) H 08/03/16 09:16 APTT 39.5 Seconds (26.0-36.0) H 07/31/16 18:21 Sodium 135 mEq/L (136-145) L 08/04/16 04:39 Potassium 3.1 mEq/L (3.5-4.5) L 08/04/16 04:39 Chloride 95 mEq/L (98-109) L 08/04/16 04:39 BUN 85 mg/dL (8-26) H 08/04/16 04:39 Creatinine 2.73 mg/dL (0.72-1.25) H 08/04/16 04:39 Est GFR ( Amer) 27 (> 60) L 08/04/16 04:39 Est GFR (Non-Af Amer) 22 (> 60) L 08/04/16 04:39 BUN/Creatinine Ratio 31 (6-26) H 08/04/16 04:39 Glucose 120 mg/dL (70-99) H 08/04/16 04:39 Calculated Osmolality 307 (280-300) H 08/04/16 04:39 Total Bilirubin 2.4 mg/dL (0.2-1.2) H 08/02/16 06:40 AST 82 Units/L (5-34) H 08/02/16 06:40 Alkaline Phosphatase 137 Units/L (38-126) H 08/02/16 06:40 Troponin I 0.15 ng/mL (0-0.03) H* 07/31/16 18:21 B-Natriuretic Peptide 2253 pg/mL (0-100) H 07/31/16 18:21 Albumin 2.3 g/dL (3.5-5.0) L 08/02/16 06:40 Globulin 4.9 g/dL (2.4-3.5) H 08/02/16 06:40 Albumin/Globulin Ratio 0.5 (1.1-2.2) L 08/02/16 06:40 Urine Clarity Cloudy (Clear) A 07/31/16 20:10 Ur Specific [place] 1.009 (1.010-1.025) L 07/31/16 20:10 Urine Protein 30 mg/dL (Neg-Trace) H 07/31/16 20:10 Urine Blood Large (Negative) H 07/31/16 20:10 Ur Leukocyte Esterase Moderate (Negative) H 07/31/16 20:10 Urine Microscopic RBC TNTC per hpf (0-3) H 07/31/16 20:10 Urine Microscopic WBC 50-100 per hpf (0-3) H 07/31/16 20:10 Ur Squamous Epith Cells Many per lpf (None-Few) H 07/31/16 20:10 Ur Culture Indicated? YES (NO) A 07/31/16 14:30 Exam: 85 year old male patient, appearing chronically ill, oriented to person - Eye Eye exam: Present: EOMI - ENT ENT exam: Present: mucous membranes moist - Respiratory Respiratory exam: Present: decreased breath sounds. Absent: respiratory distress - Cardiovascular Cardiovascular exam: Present: RRR - GI/Abdominal GI/Abdominal exam: Present: firm. Absent: tenderness - Extremities Exam Extremities exam: Present: pedal edema - Neurological Exam Neurological exam: Present: alert, no focal deficits. Absent: oriented X3 - Skin Skin exam: Present: dry, warm Palliative Quality Palliative Quality: Screen for Code Status: Yes, Screen for Goals of Care: Yes, Screen for Pain: Yes, If Pain Regimen Started, Initiate Bowel Regimen: NA, Screen for Nausea/Vomitting: Yes Code Status: 08/01/16 15:25 FULL [Resuscitation Status: Active] [RES] Routine Comment: Resuscitation Status: Full Code FULL [Resuscitation Status: Active] [RES] Routine Comment: Resuscitation Status: [id number] - Labs CBC & Chem 7: 08/04/16 04:39 08/04/16 04:39 Labs: Laboratory Results - last 24 hr 08/04/16 08/04/16 08/04/16 04:39 04:39 04:39 WBC 6.6 RBC 3.48 L Hgb 9.7 L Hct 29.4 L MCV 84.5 MCH 27.9 L MCHC 33.0 RDW 19.1 H Plt Count 119 L MPV 11.5 Immature Gran % 0.3 Seg Neutrophils % 75.6 Lymphocytes % 12.2 Monocytes % 10.8 Eosinophils % 0.9 Basophils % 0.2 Neutrophils # 5.0 Lymphocytes # 0.8 Monocytes # 0.7 Eosinophils # 0.1 Basophils # 0.0 Sodium 135 L Potassium 3.1 L Chloride 95 L Carbon Dioxide 27 BUN 85 H Creatinine 2.73 H Est GFR ( Amer) 27 L Est GFR (Non-Af Amer) 22 L BUN/Creatinine Ratio 31 H Glucose 120 H Calculated Osmolality 307 H Calcium 8.7 Phosphorus 3.8 Ammonia 57 - ABG Interpretation ABG results: PT/INR, D-dimer PT 22.4 Seconds (9.4-12.1) H 08/03/16 09:16 Consult Discharge Plan - Plan Referrals: Roberta Berrios MD [Primary Care Provider] - (most likely to rehab)
[2016-08-04] MEDS: *HR* Warfarin 5 MG TABLET PO SCH (16:54)
[2016-08-04] MEDS ORDERED: Furosemide 40 MG TABLET PO ONE (18:00)
--- NOTE | 2016-08-04 20:14 | Internal Med Progress Note ---
Date of Encounter: 08/04/16 Time of Encounter: 13:00 - Assessment and plan (1) Debility Current Visit: Yes Status: Acute Assessment and plan: PTOT and evaluation for subacute rehabilitation. Family agrees to subacute rehabilitation. Patient is agreeable to rehabilitation. Social work consult for disposition planning. (2) Fluid overload Current Visit: Yes Status: Acute Assessment and plan: continue with Lasix IV twice a day. 1000 mL fluid restriction.daily weights. Will switched to oral Lasix today and anticipation of discharge. Qualifiers: Hypervolemia type: other Qualified Code(s): E87.79 - Other fluid overload (3) CKD (chronic kidney disease), stage IV Current Visit: Yes Status: Chronic Assessment and plan: avoid nephrotoxins. appreciate nephrology consult. (4) Congestive heart failure Current Visit: Yes Status: Chronic Assessment and plan: Switch to oral Lasix. Continue beta shaw.aily weights, fluid restr Qualifiers: Congestive heart failure type: systolic Congestive heart failure chronicity : chronic Qualified Code(s): I50.22 - Chronic systolic (congestive) heart failure (5) Anasarca Current Visit: No Status: Acute (6) Cryptogenic cirrhosis of liver Current Visit: No Status: Acute Assessment and plan: continue lactullose. Check ammonia in the morning. (7) DVT prophylaxis Current Visit: No Status: Acute Assessment and plan: He is on warfarin with INR greater than 2.0 and does not require any additional pharmacological prophylaxis. (8) UTI (urinary tract infection) Current Visit: No Status: Acute Assessment and plan: Likely this is contributing to altered mental status. Continue with Rocephin empirically. Urine culture reveals enterococcus sensitive to ampicillin, this should be adequately covered with ceftriaxone. The patient is clinically improving. Qualifiers: Urinary tract infection type: acute cystitis Hematuria presence: without hematuria Qualified Code(s): N30.00 - Acute cystitis without hematuria - Subjective Interval history: History is limited by the patient's mental status and confusion. He appears to be more confused than he was yesterday. There is no family available to provide additional history. Per nurse the patient has been close to his baseline, withdrawn and confused - Constitutional Vitals: Temp Pulse Resp BP Pulse Ox 97.2 F L 78 18 134/66 96 08/04/16 16:11 08/04/16 16:11 08/04/16 16:11 08/04/16 16:11 08/04/16 16:11 General appearance: Present: no acute distress - Eye Eye exam: Present: PERRL, scleral icterus, conjuntiva pink Pupils: Present: PERRL - Respiratory Respiratory exam: Present: CTAB. Absent: accessory muscle use, rales, rhonchi, wheezes - Cardiovascular Cardiovascular exam: Present: RRR, +S1, +S2. Absent: diastolic murmur, gallop, rubs, systolic murmur - GI/Abdominal GI/Abdominal exam: Present: normal bowel sounds, soft, no peritoneal signs. Absent: distended, tenderness - Extremities Exam Extremities exam: Present: pedal edema, warm, radial pulses palpable and symetrical. Absent: calf tenderness, cyanotic - Skin Skin exam: Present: dry, intact Internal Medicine: Result - Labs CBC & Chem 7: 08/04/16 04:39 08/04/16 04:39 Labs: Short CBC 08/04/16 Range/Units 04:39 WBC 6.6 (4.3-11.1) K/mcL Hgb 9.7 L (12.9-16.9) g/dL Hct 29.4 L (37.5-50.1) % Plt Count 119 L (140-400) K/mcL Neutrophils # 5.0 (1.6-8.9) K/mcL BMP 08/04/16 04:39 Sodium 135 L Potassium 3.1 L Chloride 95 L Carbon Dioxide 27 BUN 85 H Creatinine 2.73 H Glucose 120 H Calcium 8.7 - ABG Interpretation ABG results: PT/INR, D-dimer PT 22.4 Seconds (9.4-12.1) H 08/03/16 09:16 Consult Discharge Plan - Plan Referrals: Roberta Berrios MD [Primary Care Provider] - (most likely to rehab)
[2016-08-04] MEDS: Latanoprost 2.5 ML BOTTLE BOTH EYES SCH (21:50)
[2016-08-05 05:19] LABS: Basophils % 0.1 %; Eosinophils # 0.1 K/mcL (0.0-0.6); Eosinophils % 1.3 %; Hemoglobin 10.3 g/dL (12.9-16.9); Immature Granulocytes % 0.3 % (0-4); Lymphocytes # 0.8 K/mcL (0.6-4.6); Lymphocytes % 11.9 %; Mean Corpuscular HGB Conc 33.2 g/dL (31.6-35.5); Mean Corpuscular Hemoglobin 28.6 pg (28.0-33.3); Mean Corpuscular Volume 86.1 fL (83.0-100.0); Mean Platelet Volume 12.3 fL (9.4-12.4); Monocytes # 0.7 K/mcL (0.0-1.3); Monocytes % 10.1 %; Neutrophils # 5.1 K/mcL (1.6-8.9); Platelet Count 121 K/mcL (140-400); Red Cell Distribution Width 19.8 % (11.5-14.5); Segmented Neutrophils % 76.3 %
[2016-08-05 05:20] LABS: INR 2.5; Prothrombin Time 27.3 Seconds (9.4-12.1)
[2016-08-05 05:35] LABS: Albumin 2.3 g/dL (3.5-5.0); Albumin/Globulin Ratio 0.5 (1.1-2.2); Bilirubin,Total 2.3 mg/dL (0.2-1.2); Magnesium 2.1 mg/dL (1.6-2.6); Potassium 3.2 mEq/L (3.5-4.5); Total Protein 7.3 g/dL (6.0-8.3)
[2016-08-05] MEDS: Lactulose Oral Soln 20 GM/30 ML UDC PO SCH ×2 (09:21→20:57)
[2016-08-05] MEDS: Multivit/Ca/Min/Fe/FA 1 TAB TABLET PO SCH (09:28)
[2016-08-05] MEDS: Furosemide 40 MG TABLET PO SCH ×2 (09:28→16:49)
[2016-08-05] MEDS: Isosorbide MONOnitrate (24 HR) 30 MG TAB.ER.24H PO SCH (09:28)
[2016-08-05] MEDS: Fluticasone Propionate Nasal 50 MCG/SPRAY BOTTLE NS SCH (09:29)
[2016-08-05] MEDS: (Omega-3s/Dha/Epa/Fish Oil [Fish Oil 1,200 Mg Softgel PO SCH (09:29)
--- NOTE | 2016-08-05 11:36 | Nephrology Progress Note ---
Date of Encounter: 08/05/16 Time of Encounter: 09:30 - Assessment and Plan (1) Fluid overload Current Visit: Yes Status: Acute Nonoliguric acute kidney injury on chronic kidney disease stage IV. Continues to slowly improve. Transition IV Lasix to home dose by mouth in anticipation of discharge. No need for renal replacement therapy at this time. Continue renal protective strategy and dose medications accordingly. Qualifiers: Hypervolemia type: other Qualified Code(s): E87.79 - Other fluid overload (2) Acute kidney injury superimposed on chronic kidney disease Current Visit: Yes Status: Acute (3) Hypokalemia Current Visit: Yes Status: Acute Replete. Patient placed back on his home dose of potassium twice a day. (4) Systolic congestive heart failure Current Visit: Yes Status: Chronic Transthoracic echocardiogram 07/26/2016 reveals an ejection fraction of 35%. Current fluid overload likely multifactorial. Transitioning to oral Lasix in anticipation of discharge. CALVIN inhibitor was held on admission due to acute kidney injury. Due to the patient's systolic heart failure recommendation would be to restart low-dose CALVIN inhibitor on discharge. Qualifiers: Congestive heart failure chronicity: chronic Qualified Code(s): I50.22 - Chronic systolic (congestive) heart failure Subjective Principal diagnosis: Anasarca Interval history: Patient seen and examined at the bedside. No acute events overnight per nursing staff. Patient is unfortunately altered and unable to participate in exam. No family currently at bedside. Objective - Vital Signs Vital signs: Vital Signs Temp Pulse Resp BP Pulse Ox 08/05/16 11:15 97.8 F 59 16 148/83 95 08/05/16 07:06 98.2 F 66 18 128/70 95 08/05/16 04:15 98.2 F 70 18 149/82 96 08/05/16 00:38 97.4 F L 65 16 146/91 97 08/04/16 21:50 97.4 F L 83 16 134/65 96 08/04/16 16:11 97.2 F L 78 18 134/66 96 Intake and Output 08/04/16 08/05/16 08/05/16 23:59 07:59 15:59 Intake Total 100 / 100 120 / 120 Balance 100 / 100 120 / 120 Intake: IV Fluids 100 / 100 Rocephin 1,000 MG In 100 / 100 Dextrose 5% (Minibag+) 100 ML 100 ML @ 200 mls/ hr IVPB Q24H [facility] Rx#: [id number] Oral 120 / 120 Other: Meal Breakfast Stool Size Small Stool Consistency soft Stool Color Brown # Urine Diapers 1 # Bowel Movement Diapers 1 Weight 80.6 kg Patient Weight 08/05/16 23:59 Weight 80.6 kg - General Appearance Exam: General: Patient is alert and in no acute distress, chronically ill-appearing HEENT: Normocephalic atraumatic, pupils are equal round and reactive to light and accommodation, tympanic membrane is intact, nares is patent, mucous membranes moist, throat is not injected, no JVD, trachea is midline Cardiovascular: Regular rate and rhythm without murmur Respiratory: Lungs are clear to auscultation bilaterally, no wheezing, rhonchi, rales Abdomen: Soft, nontender, nondistended, positive bowel sounds in all 4 quadrants Extremities: Upper and lower extremity anasarca Neuro: Nonfocal exam, confused - Lab 08/05/16 04:32 08/05/16 04:32 Most recent lab results Calcium 9.0 mg/dL (8.6-10.8) 08/05/16 04:32 Phosphorus 3.8 mg/dL (2.3-4.7) 08/04/16 04:39 Magnesium 2.1 mg/dL (1.6-2.6) 08/05/16 04:32 Consult Discharge Plan - Plan Referrals: Roberta Berrios MD [Primary Care Provider] - (most likely to rehab)
--- NOTE | 2016-08-05 11:48 | Palliative Progress Note ---
Date of Encounter: 08/05/16 Time of Encounter: 10:05 - Assessment and plan (1) CAD (coronary artery disease) Current Visit: No Status: Chronic Assessment and plan: No pain at this time. Current medications. Qualifiers: Coronary Disease-Associated Artery/Lesion type: bypass graft [place] vs. 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 Qualifiers: Chest pain type: other chest pain Qualified Code(s): R07.89 - Other chest pain (3) Renal insufficiency Current Visit: No Status: Acute Assessment and plan: Being followed by nephrology plan per nephrology. (4) Goals of care, counseling/discussion Current Visit: Yes Status: Acute Assessment and plan: Patient is DNR CCA, DNI. Patient will receive treatment for his action with IV antibiotics and then by mouth antibiotics. He will of course continue to follow. - Time Spent With Patient Total time spent is greater than 50% in coordination of care (as documented) at patient's floor/unit and/or counseling patient: - Subjective Interval history: Denies pain, his nausea, denies shortness of breath. Is talking about healing, cannot explain that. - Constitutional Vitals: Abnormal lab results RBC 3.60 M/mcL (4.19-5.50) L 08/05/16 04:32 Hgb 10.3 g/dL (12.9-16.9) L 08/05/16 04:32 Hct 31.0 % (37.5-50.1) L 08/05/16 04:32 RDW 19.8 % (11.5-14.5) H 08/05/16 04:32 Plt Count 121 K/mcL (140-400) L 08/05/16 04:32 PT 27.3 Seconds (9.4-12.1) H 08/05/16 04:32 APTT 39.5 Seconds (26.0-36.0) H 07/31/16 18:21 Potassium 3.2 mEq/L (3.5-4.5) L 08/05/16 04:32 BUN 74 mg/dL (8-26) H 08/05/16 04:32 Creatinine 2.51 mg/dL (0.72-1.25) H 08/05/16 04:32 Est GFR ( Amer) 30 (> 60) L 08/05/16 04:32 Est GFR (Non-Af Amer) 25 (> 60) L 08/05/16 04:32 BUN/Creatinine Ratio 29 (6-26) H 08/05/16 04:32 Glucose 112 mg/dL (70-99) H 08/05/16 04:32 Calculated Osmolality 307 (280-300) H 08/05/16 04:32 Total Bilirubin 2.3 mg/dL (0.2-1.2) H 08/05/16 04:32 AST 80 Units/L (5-34) H 08/05/16 04:32 Alkaline Phosphatase 133 Units/L (38-126) H 08/05/16 04:32 Troponin I 0.15 ng/mL (0-0.03) H* 07/31/16 18:21 B-Natriuretic Peptide 2253 pg/mL (0-100) H 07/31/16 18:21 Albumin 2.3 g/dL (3.5-5.0) L 08/05/16 04:32 Globulin 5.0 g/dL (2.4-3.5) H 08/05/16 04:32 Albumin/Globulin Ratio 0.5 (1.1-2.2) L 08/05/16 04:32 Urine Clarity Cloudy (Clear) A 07/31/16 20:10 Ur Specific [place] 1.009 (1.010-1.025) L 07/31/16 20:10 Urine Protein 30 mg/dL (Neg-Trace) H 07/31/16 20:10 Urine Blood Large (Negative) H 07/31/16 20:10 Ur Leukocyte Esterase Moderate (Negative) H 07/31/16 20:10 Urine Microscopic RBC TNTC per hpf (0-3) H 07/31/16 20:10 Urine Microscopic WBC 50-100 per hpf (0-3) H 07/31/16 20:10 Ur Squamous Epith Cells Many per lpf (None-Few) H 07/31/16 20:10 Ur Culture Indicated? YES (NO) A 07/31/16 14:30 Palliative Quality Palliative Quality: Screen for Code Status: Yes, Screen for Goals of Care: Yes, Screen for Pain: Yes, If Pain Regimen Started, Initiate Bowel Regimen: NA, Screen for Nausea/Vomitting: Yes Code Status: 08/01/16 15:25 FULL [Resuscitation Status: Active] [RES] Routine Comment: Resuscitation Status: Full Code FULL [Resuscitation Status: Active] [RES] Routine Comment: Resuscitation Status: [id number] - Labs CBC & Chem 7: 08/05/16 04:32 08/05/16 04:32 Labs: Laboratory Results - last 24 hr 08/05/16 08/05/16 08/05/16 04:32 04:32 04:32 WBC 6.7 RBC 3.60 L Hgb 10.3 L Hct 31.0 L MCV 86.1 MCH 28.6 MCHC 33.2 RDW 19.8 H Plt Count 121 L MPV 12.3 Immature Gran % 0.3 Seg Neutrophils % 76.3 Lymphocytes % 11.9 Monocytes % 10.1 Eosinophils % 1.3 Basophils % 0.1 Neutrophils # 5.1 Lymphocytes # 0.8 Monocytes # 0.7 Eosinophils # 0.1 Basophils # 0.0 PT 27.3 H INR 2.5 Sodium 137 Potassium 3.2 L Chloride 99 Carbon Dioxide 29 BUN 74 H Creatinine 2.51 H Est GFR ( Amer) 30 L Est GFR (Non-Af Amer) 25 L BUN/Creatinine Ratio 29 H Glucose 112 H Calculated Osmolality 307 H Calcium 9.0 Magnesium 2.1 Total Bilirubin 2.3 H AST 80 H ALT 27 Alkaline Phosphatase 133 H Serum Total Protein 7.3 Albumin 2.3 L Globulin 5.0 H Albumin/Globulin Ratio 0.5 L - ABG Interpretation ABG results: PT/INR, D-dimer PT 27.3 Seconds (9.4-12.1) H 08/05/16 04:32 Consult Discharge Plan - Plan Referrals: Roberta Berrios MD [Primary Care Provider] - (most likely to rehab)
[2016-08-05] MEDS: *HR* Warfarin 2.5 MG TABLET PO SCH (16:48)
[2016-08-05] MEDS ORDERED: Levofloxacin 500 MG/100 ML 500 MG/100 ML BAG IVPB ONE (16:50)
--- NOTE | 2016-08-05 18:20 | Internal Med Progress Note ---
Date of Encounter: 08/06/16 Time of Encounter: 17:30 - Assessment and plan (1) Acute kidney injury superimposed on chronic kidney disease Current Visit: Yes Status: Acute Assessment and plan: Serum creatinine noted to be steadily improving, back to baseline. Continue home medications-diuretics; (2) Fluid overload Current Visit: Yes Status: Acute Assessment and plan: Significantly improved peripheral edema. Continue Lasix and fluid restriction. Qualifiers: Hypervolemia type: other Qualified Code(s): E87.79 - Other fluid overload (3) Hypokalemia Current Visit: Yes Status: Resolved (4) CKD (chronic kidney disease), stage IV Current Visit: Yes Status: Chronic (5) Systolic congestive heart failure Current Visit: Yes Status: Chronic Assessment and plan: , Qualifiers: Congestive heart failure chronicity: chronic Qualified Code(s): I50.22 - Chronic systolic (congestive) heart failure (6) Cryptogenic cirrhosis of liver Current Visit: Yes Status: Chronic Assessment and plan: continue lactulose and rifaximin. Serum ammonia noted to be within normal limits. (7) UTI (urinary tract infection) Current Visit: No Status: Acute Assessment and plan: Urine culture grows Enterococcus faecalis, sensitive to Rocephin and fluoroquinolones. Hold Rocephin and start IV Levaquin in anticipation of discharge. Qualifiers: Urinary tract infection type: acute cystitis Hematuria presence: without hematuria Qualified Code(s): N30.00 - Acute cystitis without hematuria (8) Atrial fibrillation, permanent Current Visit: Yes Status: Chronic Assessment and plan: Continue beta shaw and long-term anticoagulation with Coumadin. INR noted to be therapeutic. (9) CAD (coronary artery disease) Current Visit: No Status: Chronic Qualifiers: Coronary Disease-Associated Artery/Lesion type: bypass graft [place] vs. transplanted heart: [place] heart Associated angina: with stable angina Qualified Code(s): I25.708 - Atherosclerosis of coronary artery bypass graft(s) , unspecified, with other forms of angina pectoris (10) Cirrhosis of liver with ascites Current Visit: Yes Status: Chronic Qualifiers: Hepatic cirrhosis type: unspecified hepatic cirrhosis Qualified Code(s): K74.60 - Unspecified cirrhosis of liver (11) HTN (hypertension) Current Visit: Yes Status: Chronic Qualifiers: Hypertension type: essential hypertension Qualified Code(s): I10 - Essential (primary) hypertension - Subjective Interval history: Noted to be confused, unable to answer any questions. Not noted to be in distress. Had multiple bowel movements overnight, and normal serum ammonia this morning. - Constitutional Vitals: Temp Pulse Resp BP Pulse Ox 97.6 F 71 16 146/80 96 08/05/16 15:01 08/05/16 15:01 08/05/16 15:01 08/05/16 15:01 08/05/16 15:01 General appearance: Present: A&O X 0, no acute distress - Head Head exam: Present: atraumatic, normocephalic - Neck Neck exam general surgery: Present: supple, trachea midline. Absent: lymphadenopathy - Respiratory Respiratory exam: Present: CTAB. Absent: accessory muscle use, rales, rhonchi, wheezes - Cardiovascular Cardiovascular exam: Present: RRR, +S1, +S2, systolic murmur. Absent: diastolic murmur, gallop, rubs - GI/Abdominal GI/Abdominal exam: Present: distended, normal bowel sounds, soft, no peritoneal signs. Absent: tenderness - Extremities Exam Extremities exam: Present: pedal edema (significantly improved pedal edema), warm, radial pulses palpable and symetrical. Absent: calf tenderness, cyanotic - Neurological Exam Neurological exam: Present: altered. Absent: pronater drift, facial droop, speech deficit - Skin Skin exam: Present: dry, intact Internal Medicine: Result - Labs CBC & Chem 7: 08/06/16 05:34 08/06/16 05:34 Labs: Short CBC 08/05/16 Range/Units 04:32 WBC 6.7 (4.3-11.1) K/mcL Hgb 10.3 L (12.9-16.9) g/dL Hct 31.0 L (37.5-50.1) % Plt Count 121 L (140-400) K/mcL Neutrophils # 5.1 (1.6-8.9) K/mcL BMP 08/05/16 04:32 Sodium 137 Potassium 3.2 L Chloride 99 Carbon Dioxide 29 BUN 74 H Creatinine 2.51 H Glucose 112 H Calcium 9.0 Liver Function 08/05/16 Range/Units 04:32 Total Bilirubin 2.3 H (0.2-1.2) mg/dL AST 80 H (5-34) Units/L ALT 27 (0-55) Units/L Alkaline Phosphatase 133 H (38-126) Units/L Albumin 2.3 L (3.5-5.0) g/dL - ABG Interpretation ABG results: PT/INR, D-dimer PT 27.3 Seconds (9.4-12.1) H 08/05/16 04:32 Consult Discharge Plan - Plan Additional Instructions: F/up with Cardiology, Nephrology as scheduled Referrals: Roberta Berrios MD [Primary Care Provider] - (most likely to rehab) Prescriptions: Levofloxacin [Levaquin] 500 mg PO Q48H #5 tablet Potassium Chloride 10 meq PO BIDWM #20 tab.er.prt
[2016-08-05] MEDS: Latanoprost 2.5 ML BOTTLE BOTH EYES SCH (20:57)
[2016-08-06 05:41] LABS: Basophils % 0.1 %; Eosinophils # 0.1 K/mcL (0.0-0.6); Hematocrit 31.9 % (37.5-50.1); Hemoglobin 10.3 g/dL (12.9-16.9); Immature Granulocytes % 0.4 % (0-4); Lymphocytes # 0.7 K/mcL (0.6-4.6); Lymphocytes % 9.5 %; Mean Corpuscular HGB Conc 32.3 g/dL (31.6-35.5); Mean Corpuscular Hemoglobin 28.1 pg (28.0-33.3); Mean Corpuscular Volume 87.2 fL (83.0-100.0); Mean Platelet Volume 11.5 fL (9.4-12.4); Monocytes # 0.7 K/mcL (0.0-1.3); Monocytes % 9.8 %; Neutrophils # 5.8 K/mcL (1.6-8.9); Platelet Count 123 K/mcL (140-400); Red Blood Count 3.66 M/mcL (4.19-5.50); Red Cell Distribution Width 20.2 % (11.5-14.5); Segmented Neutrophils % 79.2 %
[2016-08-06 05:46] LABS: INR 3.5; Prothrombin Time 38.8 Seconds (9.4-12.1)
[2016-08-06 05:53] LABS: Calcium 8.9 mg/dL (8.6-10.8); Magnesium 1.8 mg/dL (1.6-2.6); Potassium 3.5 mEq/L (3.5-4.5)
[2016-08-06] MEDS ORDERED: Levofloxacin 250 MG/50 ML 250 MG/50 ML BAG IVPB SCH (09:00)
[2016-08-06] MEDS: Lactulose Oral Soln 20 GM/30 ML UDC PO SCH (09:20)
[2016-08-06] MEDS: Multivit/Ca/Min/Fe/FA 1 TAB TABLET PO SCH (09:21)
[2016-08-06] MEDS: Isosorbide MONOnitrate (24 HR) 30 MG TAB.ER.24H PO SCH (09:21)
[2016-08-06] MEDS: Fluticasone Propionate Nasal 50 MCG/SPRAY BOTTLE NS SCH (09:21)
[2016-08-06] MEDS: Furosemide 40 MG TABLET PO SCH (09:21)
[2016-08-06] MEDS: (Omega-3s/Dha/Epa/Fish Oil [Fish Oil 1,200 Mg Softgel PO SCH (09:22)
--- NOTE | 2016-08-06 09:55 | Nephrology Progress Note ---
Date of Encounter: 08/06/16 Time of Encounter: 09:45 - Assessment and Plan (1) Fluid overload Current Visit: Yes Status: Acute Nonoliguric acute kidney injury on chronic kidney disease stage IV. Continues to slowly improve. Patient has been transitioned to home dose PO Lasix in anticipation of discharge. No need for renal replacement therapy at this time. Continue renal protective strategy and dose medications accordingly. Qualifiers: Hypervolemia type: other Qualified Code(s): E87.79 - Other fluid overload (2) Acute kidney injury superimposed on chronic kidney disease Current Visit: Yes Status: Acute (3) Hypokalemia Current Visit: Yes Status: Resolved Patient placed back on his home dose of potassium twice a day. (4) Systolic congestive heart failure Current Visit: Yes Status: Chronic Transthoracic echocardiogram 07/26/2016 reveals an ejection fraction of 35%. Current fluid overload likely multifactorial. Placed back on home dose of oral Lasix in anticipation of discharge. CALVIN inhibitor was held on admission due to acute kidney injury. Due to the patient's systolic heart failure recommendation would be to restart low-dose CALVIN inhibitor on discharge. Qualifiers: Congestive heart failure chronicity: chronic Qualified Code(s): I50.22 - Chronic systolic (congestive) heart failure Subjective Principal diagnosis: Anasarca Interval history: Patient seen and examined at the bedside. No acute events overnight per nursing staff. Patient is unfortunately altered and unable to participate in exam. No family currently at bedside. Objective - Vital Signs Vital signs: Vital Signs Temp Pulse Resp BP Pulse Ox 08/06/16 06:44 97.6 F 66 16 133/64 98 08/06/16 04:00 98.2 F 74 17 129/64 94 L 08/06/16 00:11 97.9 F 71 17 155/82 98 08/05/16 20:58 97.9 F 71 17 155/82 98 08/05/16 20:01 97.6 F 66 17 150/68 98 08/05/16 15:01 97.6 F 71 16 146/80 96 08/05/16 11:15 97.8 F 59 16 148/83 95 Intake and Output 08/05/16 08/06/16 08/06/16 23:59 07:59 15:59 Intake Total 60 / 60 Balance 60 / 60 Intake: Oral 60 / 60 Other: Meal Breakfast Percent of Meal Consumed 50% Weight 79 kg Patient Weight 08/06/16 23:59 Weight 79 kg - General Appearance Exam: General: Patient is alert and in no acute distress, chronically ill-appearing HEENT: Normocephalic atraumatic, pupils are equal round and reactive to light and accommodation, tympanic membrane is intact, nares is patent, mucous membranes moist, throat is not injected, no JVD, trachea is midline Cardiovascular: Regular rate and rhythm without murmur Respiratory: Lungs are clear to auscultation bilaterally, no wheezing, rhonchi, rales Abdomen: Soft, nontender, nondistended, positive bowel sounds in all 4 quadrants Extremities: Upper and lower extremity anasarca Neuro: Nonfocal exam, confused - Lab 08/06/16 05:34 08/06/16 05:34 Most recent lab results Calcium 8.9 mg/dL (8.6-10.8) 08/06/16 05:34 Phosphorus 3.8 mg/dL (2.3-4.7) 08/04/16 04:39 Magnesium 1.8 mg/dL (1.6-2.6) 08/06/16 05:34 Consult Discharge Plan - Plan Referrals: Roberta Berrios MD [Primary Care Provider] - (most likely to rehab)
[2016-08-06 11:15] VITALS: BP 138/66
--- NOTE | 2016-08-06 13:35 | Discharge Summary ---
Date of Encounter: 08/06/16 Time of Encounter: 13:30 - Discharge Diagnosis (1) Acute kidney injury superimposed on chronic kidney disease Priority: Primary Status: Acute (2) Fluid overload Priority: Primary Status: Acute Qualifiers: Hypervolemia type: other Qualified Code(s): E87.79 - Other fluid overload (3) Hypokalemia Priority: Primary Status: Resolved (4) CKD (chronic kidney disease), stage IV Priority: Secondary Status: Chronic (5) Systolic congestive heart failure Priority: Secondary Status: Chronic Qualifiers: Congestive heart failure chronicity: chronic Qualified Code(s): I50.22 - Chronic systolic (congestive) heart failure (6) Cryptogenic cirrhosis of liver Priority: Secondary Status: Chronic (7) UTI (urinary tract infection) Priority: Primary Status: Acute Qualifiers: Urinary tract infection type: acute cystitis Hematuria presence: without hematuria Qualified Code(s): N30.00 - Acute cystitis without hematuria (8) Atrial fibrillation, permanent Priority: Secondary Status: Chronic (9) CAD (coronary artery disease) Priority: Secondary Status: Chronic Qualifiers: Coronary Disease-Associated Artery/Lesion type: bypass graft [place] vs. transplanted heart: 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) , unspecified, with other forms of angina pectoris (10) Cirrhosis of liver with ascites Priority: Secondary Status: Chronic Qualifiers: Hepatic cirrhosis type: unspecified hepatic cirrhosis Qualified Code(s): K74.60 - Unspecified cirrhosis of liver (11) HTN (hypertension) Priority: Secondary Status: Chronic Qualifiers: Hypertension type: essential hypertension Qualified Code(s): I10 - Essential (primary) hypertension - Discharge Medications Prescriptions: Levofloxacin [Levaquin] 500 mg PO Q48H #5 tablet Potassium Chloride 10 meq PO BIDWM #20 tab.er.prt Warfarin [Coumadin] 4 mg PO 1800 #10 tablet Home Medications: Atorvastatin [Lipitor] 40 mg PO HS 06/08/15 [History] Gabapentin [Neurontin] 600 mg PO HS 06/08/15 [History] Garlic 1,000 mg PO DAILY 06/08/15 [History] Loratadine [Claritin] 10 mg PO DAILY PRN 06/08/15 [History] Metoprolol [Lopressor] 50 mg PO BID 06/08/15 [History] Multivitamin [Flintstones] 1 each PO DAILY 06/08/15 [History] [place]-3S/Dha/Epa/Fish Oil [Fish Oil 1,200 mg Softgel] 1 each PO DAILY 06/08/15 [ History] Tamsulosin [Flomax] 0.4 mg PO BID 06/08/15 [History] Montelukast [Singulair] 10 mg PO HS 11/05/15 [History] Isosorbide MONOnitrate (24 HR) [Imdur] 30 mg PO DAILY 30 Days 11/07/15 [Rx] Fluticasone Propionate Nasal [Flonase] 50 mcg NS DAILY 11/09/15 [History] Latanoprost 1 drop BOTH EYES HS 11/28/15 [History] Amlodipine Besylate 10 mg PO DAILY 06/12/16 [History] Ceramides 1,3,6-11 [Cerave] 1 appl TP BID 06/12/16 [History] Hydroxyzine HCl 25 mg PO Q8H PRN 06/12/16 [History] Ferrous Sulfate 325 mg PO BID #60 tablet 07/30/16 [Rx] Lactulose 30 gm PO TID #90 udc 07/30/16 [Rx] Lisinopril [Zestril] 10 mg PO DAILY #30 tablet 07/30/16 [Rx] Potassium Chloride 10 meq PO BIDWM #60 tab.er.prt 07/30/16 [Rx] Furosemide [Lasix] 80 mg PO BID 07/31/16 [History] Levofloxacin [Levaquin] 500 mg PO Q48H #5 tablet 08/06/16 [Rx] Potassium Chloride 10 meq PO BIDWM #20 tab.er.prt 08/06/16 [Rx] Warfarin [Coumadin] 4 mg PO 1800 #10 tablet 08/06/16 [Rx] Allergies/Adverse Reactions: Allergies clopidogrel [From Plavix] Allergy (Verified 05/06/16 09:07) Itching Cortisone Allergy (Verified 05/06/16 09:07) Joint Pain Procedures/tests Complete & Pending: Procedures Performed prior 72 hours Category Date Time Status CT head/brain wo con [CT] Routine Cat Scan 08/06/16 13:29 Ordered Date of admission: 07/31/16 17:30 Primary care physician: Roberta Berrios, Consults: 07/31/16 17:37 Consult to Palliative Care [CONS] Routine Comment: Consulting Provider: Palliative Care Cher 07/31/16 17:45 Consult to Nephrology [CONS] Stat Consulting Provider: Kid[facility] Sp[facility] Cher LANTIGUA/MARLENI Reason for Consult: Fluid overload, altered mental status, CKD, possible uremia, may need dialysis Call Completed: No 08/03/16 14:57 Consult to Occupational Therapy [CONS] Routine Comment: Evaluate, develop and implement POC Consult to Physical Therapy [CONS] Routine Comment: Evaluate, develop and implement POC Discharging clinician: Rita Peralta Anticipated date of discharge: 08/06/16 - Patient Status Disposition: Transfer SNF Condition: Fair Functional capacity at discharge: uses cane/walker Overall status at discharge: patient is progressing back to baseline - Discharge Instructions Follow Up With: Roberta Berrios MD [Primary Care Provider] - (most likely to rehab) Additional Instructions: F/up with Cardiology, Nephrology as scheduled - Diet and Activity Activity: as per physical therapy Diet: low fat, low cholesterol, low salt diet (fluid restriction to 1.2L/day) Hospital course: Mr. King is a 85 year old male with multiple medical problems, who was recently discharged from our hospital after being treated for acute on chronic renal failure, was readmitted due to worsening peripheral edema. He was noted to have acute on chronic renal failure and nephrology was consulted. He was continued on IV diuretics due to his volume overload and peripheral edema with appropriate urine output and significant improvement in edema at the time of discharge. His renal function gradually improved and his serum creatinine came down to his baseline of around 2.2. He is also noted to be confused during this hospitalization with uncertain etiology. CT head showed no acute abnormality. No electrolyte or metabolic abnormality was noted. Serum ammonia level was within normal limits. This is likely due to multiple hospitalizations, underlying mild dementia and elderly age. Urine dipstick was suggestive of UTI and he was started on empiric IV antibiotics. Urine culture eventually grew Enterococcus faecalis and he is being discharged on oral Levaquin, renally dosed. Palliative care team has been on board during this admission and had multiple discussions with patient's power of collections attorney, his son Umesh king and his CODE STATUS has been changed to DNR CCA/DNI and he is medically stable for transfer to care home facility for short-term rehabilitation. - Time Spent with Patient Total time spent providing and/or coordinating discharge services: Greater than 30 minutes (45 min) - Constitutional Vitals: Temp Pulse Resp BP Pulse Ox 97.6 F 75 14 138/66 96 08/06/16 11:12 08/06/16 11:12 08/06/16 11:12 08/06/16 11:12 08/06/16 11:12 General appearance: Present: A&O X 1 - Respiratory Respiratory exam: Present: CTAB. Absent: accessory muscle use, rales, rhonchi, wheezes - Cardiovascular Cardiovascular exam: Present: RRR, +S1, +S2, systolic murmur. Absent: diastolic murmur, gallop, rubs
--- NOTE | 2016-08-06 13:39 | Physician Discharge Referral ---
ExtendedCare Referral Info Transfer To: [facility] Provider in Charge: Rita Peralta Provider in Charge after Transfer: PCP Institutional Level of Care: Skilled - Diagnosis (1) UTI (urinary tract infection) Priority: Primary Status: Acute (2) Acute kidney injury superimposed on chronic kidney disease Priority: Primary Status: Acute (3) Fluid overload Priority: Primary Status: Acute (4) Hypokalemia Priority: Primary Status: Resolved (5) CKD (chronic kidney disease), stage IV Priority: Secondary Status: Chronic (6) Systolic congestive heart failure Priority: Secondary Status: Chronic (7) Cryptogenic cirrhosis of liver Priority: Secondary Status: Chronic (8) Atrial fibrillation, permanent Priority: Secondary Status: Chronic (9) CAD (coronary artery disease) Priority: Secondary Status: Chronic (10) Cirrhosis of liver with ascites Priority: Secondary Status: Chronic (11) HTN (hypertension) Priority: Secondary Status: Chronic Expected Duration of Placement: 3 weeks Prognosis: Fair Aware of Diagnosis: Family Aware of Prognosis: Family - Transfer Medications Prescriptions: Levofloxacin [Levaquin] 500 mg PO Q48H #5 tablet Potassium Chloride 10 meq PO BIDWM #20 tab.er.prt Home Medications: Atorvastatin [Lipitor] 40 mg PO HS 06/08/15 [History] Gabapentin [Neurontin] 600 mg PO HS 06/08/15 [History] Garlic 1,000 mg PO DAILY 06/08/15 [History] Loratadine [Claritin] 10 mg PO DAILY PRN 06/08/15 [History] Metoprolol [Lopressor] 50 mg PO BID 06/08/15 [History] Multivitamin [Flintstones] 1 each PO DAILY 06/08/15 [History] [place]-3S/Dha/Epa/Fish Oil [Fish Oil 1,200 mg Softgel] 1 each PO DAILY 06/08/15 [ History] Tamsulosin [Flomax] 0.4 mg PO BID 06/08/15 [History] Montelukast [Singulair] 10 mg PO HS 11/05/15 [History] Isosorbide MONOnitrate (24 HR) [Imdur] 30 mg PO DAILY 30 Days 11/07/15 [Rx] Fluticasone Propionate Nasal [Flonase] 50 mcg NS DAILY 11/09/15 [History] Latanoprost 1 drop BOTH EYES HS 11/28/15 [History] Amlodipine Besylate 10 mg PO DAILY 06/12/16 [History] Ceramides 1,3,6-11 [Cerave] 1 appl TP BID 06/12/16 [History] Hydroxyzine HCl 25 mg PO Q8H PRN 06/12/16 [History] Ferrous Sulfate 325 mg PO BID #60 tablet 07/30/16 [Rx] Lactulose 30 gm PO TID #90 udc 07/30/16 [Rx] Lisinopril [Zestril] 10 mg PO DAILY #30 tablet 07/30/16 [Rx] Potassium Chloride 10 meq PO BIDWM #60 tab.er.prt 07/30/16 [Rx] Furosemide [Lasix] 80 mg PO BID 07/31/16 [History] Levofloxacin [Levaquin] 500 mg PO Q48H #5 tablet 08/06/16 [Rx] Potassium Chloride 10 meq PO BIDWM #20 tab.er.prt 08/06/16 [Rx] Allergies/Adverse Reactions: Allergies clopidogrel [From Plavix] Allergy (Verified 05/06/16 09:07) Itching Cortisone Allergy (Verified 05/06/16 09:07) Joint Pain - Respiratory Orders Oxygen / L per min (1L/min) Smoking Cessation: Smoking cessation has been advised. For more information, call the [employer] Tobacco Quit Line at 0-424-EWNJ-NOW. - Ancillary Orders May use pressure relief devices daily prn - Advance Directives Power of Paperhanger Assistant: Yes (Son) Code Status: DNR-Arrest/Don't Intubate - Mobility Orders Ambulate - Rehabiliation Orders Rehab Orders: ROM Exercises, Evaluation for Physical Therapy, Evaluation for Occupational Therapy - Diet Orders No Added Salt (PRIMO), Renal, Cardiac (fluid restriction 1.2L/day) CERTIFICATION: I certify that the transfer of the above named patient to an Extended Care Facility is necessary for the continuing treatment of the diagnosis listed. The above information is true and accurate reflection of patient's current condition. Confidential - Redisclosure prohibited without a patient's written consent.
[2016-08-06] MEDS ORDERED: *HR* Warfarin 3 MG TABLET PO SCH (18:00)
== END 2016-08-06 16:50 | DRG 683 ==
LOC: EMEROO 12:03 → 2ANU 12:03 → SUATTDRO 17:30
PROVIDERS: ADMIT Registered Nurse; ATTEND Internal Medicine

== ENCOUNTER 2016-10-11 20:42 | Observation (INO) ==
[2016-10-11] MEDS ORDERED: Furosemide 40 MG/4 ML VIAL IVP ONE (21:06)
--- NOTE | 2016-10-11 21:12 | Emergency Department Note ---
START Narrative - START START: I examined this patient and my medical decision-making was reviewed with the CURRICULUM COACH/PA/Advanced Practice Nurse/Resident Physician. I agree with the documented findings, disposition and treatment plan as described except to the extent set forth below. ED attending note: Patient seen with emergency medicine resident Dr. Hsu. Please see a copy of his note for details of the H&P, evaluation, management and disposition of this patient. We independently had [id number] contact with the patient Briefly: 85-year-old male from [facility] via EMS for shortness of breath and pressure-like sensation in his abdomen. History of cirrhosis several paracentesis but not in a long while. Does not appear to be distended passing gas bibasal rales with pitting edema. EKG shows paced rhythm ischemic changes. Patient will get diuresis chest x-ray screening labs. 30 minutes critical care service provided for this patient. Disposition pending.
--- NOTE | 2016-10-11 21:29 | Emergency Department Note ---
Disposition Clinical Impression: Encephalopathy, [id number] renal failure Disposition: Admitted As Inpatient Condition: Fair Referrals: NO,PCP [Primary Care Provider] - Forms: ED Satisfaction Letter Time of Disposition: :01 SOB HPI - General Chief Complaint: ED Shortness of Breath/Dyspnea Stated Complaint: SOB Time Seen by Provider: 10/11/16 21:00 Source: patient, EMS Mode of arrival: EMS Limitations: age Nursing Notes Reviewed: Yes Vital Signs Reviewed: Yes - History of Present Illness 85-year-old male history of cirrhosis and CHF presents with shortness of breath , abdominal distention. Patient states that he had worsening shortness breath while nursing facility, EMS states that the patient was on room air satting 97% on 2 L and he improved to 100%. Patient also has a history of chronic kidney disease. Currently patient denies any chest pain or abdominal pain. States he feels short of breath when he tries to take deep breaths, he also has bilateral swelling in his lower extremity is. Pt Subjective Complaint: shortness of breath Onset (ago): day(s) Severity: mild Consistency/Duration: constant Improves with: nothing Worsens with: nothing Known history of: congestive heart failure Associated symptoms: Reports: denies other symptoms, cough. Denies: chest pain , pain with inspiration, fever - Related Data Home Medications Medication Instructions Recorded Confirmed Atorvastatin [Lipitor] 40 mg PO HS 06/08/15 07/31/16 Gabapentin [Neurontin] 600 mg PO HS 06/08/15 07/31/16 Garlic 1,000 mg PO DAILY 06/08/15 07/31/16 Loratadine [Claritin] 10 mg PO DAILY PRN 06/08/15 07/31/16 Metoprolol [Lopressor] 50 mg PO BID 06/08/15 07/31/16 Multivitamin [Flintstones] 1 each PO DAILY 06/08/15 07/31/16 [place]-3S/Dha/Epa/Fish Oil [Fish 1 each PO DAILY 06/08/15 07/31/16 Oil 1,200 mg Softgel] Tamsulosin [Flomax] 0.4 mg PO BID 06/08/15 07/31/16 Montelukast [Singulair] 10 mg PO HS 11/05/15 07/31/16 Fluticasone Propionate Nasal 50 mcg NS DAILY 11/09/15 07/31/16 [Flonase] Latanoprost 1 drop BOTH EYES HS 11/28/15 07/31/16 Amlodipine Besylate 10 mg PO DAILY 06/12/16 07/31/16 Ceramides 1,3,6-11 [Cerave] 1 appl TP BID 06/12/16 07/31/16 Hydroxyzine HCl 25 mg PO Q8H PRN 06/12/16 07/31/16 Furosemide [Lasix] 80 mg PO BID 07/31/16 07/31/16 Previous Rx's Medication Instructions Recorded Isosorbide MONOnitrate (24 HR) 30 mg PO DAILY 30 Days 11/07/15 [Imdur] Ferrous Sulfate 325 mg PO BID #60 tablet 07/30/16 Lactulose 30 gm PO TID #90 udc 07/30/16 Lisinopril [Zestril] 10 mg PO DAILY #30 tablet 07/30/16 Potassium Chloride 10 meq PO BIDWM #60 tab.er.prt 07/30/16 Levofloxacin [Levaquin] 500 mg PO Q48H #5 tablet 08/06/16 Potassium Chloride 10 meq PO BIDWM #20 tab.er.prt 08/06/16 Warfarin [Coumadin] 4 mg PO 1800 #10 tablet 08/06/16 Allergies Allergy/AdvReac Type Severity Reaction Status Date / Time clopidogrel [From Plavix] Allergy Itching Verified 10/11/16 20:47 Cortisone Allergy Joint Pain Verified 10/11/16 20:47 All systems ED: reviewed and negative except as stated. Constitutional: Denies: fever, chills Eyes: Denies: eye pain Cardiovascular: Denies: chest pain, palpitations Respiratory: Reports: as per HPI, cough, dyspnea Gastrointestinal: Reports: abdominal pain, nausea. Denies: vomiting, diarrhea Genitourinary: Denies: urgency, dysuria Musculoskeletal: Denies: back pain Integumentary: Denies: rash, abrasion Psychiatric: Denies: anxiety Past Medical History - Past Medical History Attestation: Yes The following information was validated with the patient. Source: patient Medical history: Reports: atrial fibrillation, CHF, coronary artery disease, hyperlipidemia, hypertension, myocardial infarction, peripheral artery disease, renal disease, other Surgical history: Reports: angioplasty/stent, carotid endarterectomy (bilateral) , coronary bypass (CABG), pacemaker/AICD, vascular surgery (right fem-pop bypass ), other, pacemaker (dual chamber) Psychiatric history: Reports: no psych history - Social History Smoking Status: Never smoker Smokeless Tobacco Status: No Alcohol use: Reports: none Drug use: Reports: none Physical Exam Constitutional: alert and oriented to self only, in NAD, vital signs reviewed and wnl Neck: normal inspection, neck is supple, trachea midline Resp: normal chest inspection, CTA bilaterally, no resp distress CV: RRR, no m/g/r GI: normal inspection, Soft, NTND, BS present Back: normal inspection, no tenderness to palpation Neuro: A&O1 to self, no gross motor or sensory deficits bilaterally MSK: normal inspection, bilateral UE and LE with normal ROM Skin: No rashes, skin warm, dry, intact - General Limitations: age Course Course Narrative: 85-year-old male with CHF and cirrhosis, suspect CHF exacerbation diuresis, his lab work chest pain workup reassess - Reevaluation(s) Reevaluation #1: After evaluation, patient was going to be medically cleared however patient appeared to be more altered mental status will admit to medicine service Karen and ABG added. Time: 01:00 Vital Signs Temperature 98.3 F 10/11/16 20:53 Pulse Rate 65 10/11/16 20:53 Respiratory Rate 18 10/11/16 20:53 Blood Pressure 166/116 10/11/16 20:53 O2 Sat by Pulse Oximetry 95 10/11/16 20:53 Temperature 99.3 F 10/12/16 00:29 Pulse Rate 71 10/12/16 00:29 Respiratory Rate 20 10/12/16 00:29 Blood Pressure 177/73 10/12/16 00:29 O2 Sat by Pulse Oximetry 92 L 10/12/16 00:29 Oxygen Delivery Oxygen Delivery Room Air Shortness of Breath/Dyspnea - Differential Diagnosis Likely: acute exacerbation of chronic obstructive airways disease, congestive heart failure, pulmonary embolism - Medical Records Medical records reviewed: Yes I reviewed the patient's medical records. - Lab Data Lab results reviewed: Yes I reviewed the patient's lab results. Result diagrams: 10/11/16 21:36 10/11/16 21:36 Lab Results 10/11/16 10/11/16 10/11/16 Range/Units 21:36 21:36 21:36 WBC 11.6 H (4.3-11.1) K/mcL RBC 3.42 L (4.19-5.50) M/mcL Hgb 10.7 L (12.9-16.9) g/dL Hct 32.8 L (37.5-50.1) % MCV 95.9 (83.0-100.0) fL MCH 31.3 (28.0-33.3) pg MCHC 32.6 (31.6-35.5) g/dL RDW 18.6 H (11.5-14.5) % Plt Count 173 (140-400) K/mcL MPV 11.4 (9.4-12.4) fL Immature Gran % 0.5 (0-4) % Seg Neutrophils % 89.5 % Lymphocytes % 3.9 % Monocytes % 4.2 % Eosinophils % 1.8 % Basophils % 0.1 % Neutrophils # 10.4 H (1.6-8.9) K/mcL Lymphocytes # 0.5 L (0.6-4.6) K/mcL Monocytes # 0.5 (0.0-1.3) K/mcL Eosinophils # 0.2 (0.0-0.6) K/mcL Basophils # 0.0 (0.0-0.2) K/mcL PT (9.4-12.1) Seconds INR APTT (26.0-36.0) Seconds Sodium 133 L (136-145) mEq/L Potassium 4.6 H (3.5-4.5) mEq/L Chloride 99 (98-109) mEq/L Carbon Dioxide 24 (19-29) mEq/L BUN 49 H (8-26) mg/dL Creatinine 2.22 H (0.72-1.25) mg/dL Est GFR ( Amer) 34 L (> 60) Est GFR (Non-Af Amer) 28 L (> 60) BUN/Creatinine Ratio 22 (6-26) Glucose 114 H (70-99) mg/dL Calculated Osmolality 290 (280-300) Calcium 9.2 (8.6-10.8) mg/dL Total Bilirubin 1.1 (0.2-1.2) mg/dL Direct Bilirubin 0.7 H (0.0-0.5) mg/dL Indirect Bilirubin 0.4 (0.0-1.2) mg/dL AST 38 H (5-34) Units/L ALT 19 (0-55) Units/L Alkaline Phosphatase 315 H (38-126) Units/L Troponin I 0.06 H* (0-0.03) ng/mL B-Natriuretic Peptide (0-100) pg/mL Serum Total Protein 9.0 H (6.0-8.3) g/dL Albumin 2.9 L (3.5-5.0) g/dL Globulin 6.1 H (2.4-3.5) g/dL Albumin/Globulin Ratio 0.5 L (1.1-2.2) Lipase 54 (8-78) Units/L Urine Color (Yellow) Urine Clarity (Clear) Urine pH (5.0-8.0) pH Units Ur Specific [place] (1.010-1.025) Urine Protein (Neg-Trace) mg/dL Urine Glucose (UA) (Normal) mg/dL Urine Ketones (Negative) mg/dL Urine Blood (Negative) Urine Nitrite (Negative) Urine Bilirubin (Negative) Urine Urobilinogen (Normal) mg/dL Ur Leukocyte Esterase (Negative) Urine Microscopic RBC (0-3) per hpf Urine Microscopic WBC (0-3) per hpf Ur Squamous Epith Cells (None-Few) per lpf Urine Bacteria (None-Few) per hpf Hyaline Casts (None-Few) per lpf Ur Culture Indicated? (NO) 10/11/16 10/11/16 10/11/16 Range/Units 21:36 21:36 22:40 WBC (4.3-11.1) K/mcL RBC (4.19-5.50) M/mcL Hgb (12.9-16.9) g/dL Hct (37.5-50.1) % MCV (83.0-100.0) fL MCH (28.0-33.3) pg MCHC (31.6-35.5) g/dL RDW (11.5-14.5) % Plt Count (140-400) K/mcL MPV (9.4-12.4) fL Immature Gran % (0-4) % Seg Neutrophils % % Lymphocytes % % Monocytes % % Eosinophils % % Basophils % % Neutrophils # (1.6-8.9) K/mcL Lymphocytes # (0.6-4.6) K/mcL Monocytes # (0.0-1.3) K/mcL Eosinophils # (0.0-0.6) K/mcL Basophils # (0.0-0.2) K/mcL PT 13.3 H (9.4-12.1) Seconds INR 1.2 APTT 35.1 (26.0-36.0) Seconds Sodium (136-145) mEq/L Potassium (3.5-4.5) mEq/L Chloride (98-109) mEq/L Carbon Dioxide (19-29) mEq/L BUN (8-26) mg/dL Creatinine (0.72-1.25) mg/dL Est GFR ( Amer) (> 60) Est GFR (Non-Af Amer) (> 60) BUN/Creatinine Ratio (6-26) Glucose (70-99) mg/dL Calculated Osmolality (280-300) Calcium (8.6-10.8) mg/dL Total Bilirubin (0.2-1.2) mg/dL Direct Bilirubin (0.0-0.5) mg/dL Indirect Bilirubin (0.0-1.2) mg/dL AST (5-34) Units/L ALT (0-55) Units/L Alkaline Phosphatase (38-126) Units/L Troponin I (0-0.03) ng/mL B-Natriuretic Peptide 1420 H (0-100) pg/mL Serum Total Protein (6.0-8.3) g/dL Albumin (3.5-5.0) g/dL Globulin (2.4-3.5) g/dL Albumin/Globulin Ratio (1.1-2.2) Lipase (8-78) Units/L Urine Color Yellow (Yellow) Urine Clarity Clear (Clear) Urine pH 6.5 (5.0-8.0) pH Units Ur Specific [place] 1.014 (1.010-1.025) Urine Protein Negative (Neg-Trace) mg/dL Urine Glucose (UA) Normal (Normal) mg/dL Urine Ketones Negative (Negative) mg/dL Urine Blood Negative (Negative) Urine Nitrite Negative (Negative) Urine Bilirubin Negative (Negative) Urine Urobilinogen Normal (Normal) mg/dL Ur Leukocyte Esterase Trace H (Negative) Urine Microscopic RBC 0-3 (0-3) per hpf Urine Microscopic WBC 0-3 (0-3) per hpf Ur Squamous Epith Cells Moderate H (None-Few) per lpf Urine Bacteria None Seen (None-Few) per hpf Hyaline Casts None Seen (None-Few) per lpf Ur Culture Indicated? YES A (NO) - Radiology Data Radiology results reviewed: Yes I reviewed the patient's radiology results. Chest X-Ray 10/11/16 21:06 IMPRESSION: Low lung volumes. Cardiomegaly with no overt failure or focal pulmonary process. D/ / Prakash Puentes MD / Prakash Puentes MD Interpreting Provider: Prakash Puentes MD - EKG Data EKG attestation: Yes I reviewed and interpreted this EKG. EKG shows normal: Reports: sinus rhythm (65 bpm RI to 15 QRS 176 QTc 449 left bundle-branch block electronic ventricular pacemaker, paced no ST segment elevations or depressions) Rhythm: Reports: other (V Paced) When compared to previous EKG there are: no significant changes Interpretation: Reports: no acute changes, unchanged when compared to prior tracing (date) (07/2016) - Core Measures AMI Core Measures Followed: No Measure Exclusions: not indicated
[2016-10-11 21:45] LABS: Basophils % 0.1 %; Eosinophils # 0.2 K/mcL (0.0-0.6); Eosinophils % 1.8 %; Hematocrit 32.8 % (37.5-50.1); Hemoglobin 10.7 g/dL (12.9-16.9); Immature Granulocytes % 0.5 % (0-4); Lymphocytes # 0.5 K/mcL (0.6-4.6); Lymphocytes % 3.9 %; Mean Corpuscular HGB Conc 32.6 g/dL (31.6-35.5); Mean Corpuscular Hemoglobin 31.3 pg (28.0-33.3); Mean Corpuscular Volume 95.9 fL (83.0-100.0); Mean Platelet Volume 11.4 fL (9.4-12.4); Monocytes # 0.5 K/mcL (0.0-1.3); Monocytes % 4.2 %; Neutrophils # 10.4 K/mcL (1.6-8.9); Platelet Count 173 K/mcL (140-400); Red Blood Count 3.42 M/mcL (4.19-5.50); Red Cell Distribution Width 18.6 % (11.5-14.5); Segmented Neutrophils % 89.5 %
[2016-10-11 21:50] LABS: INR 1.2; Prothrombin Time 13.3 Seconds (9.4-12.1)
[2016-10-11 21:52] LABS: Activated Partial Thrombo Time 35.1 Seconds (26.0-36.0)
[2016-10-11 22:01] LABS: Albumin 2.9 g/dL (3.5-5.0); Albumin/Globulin Ratio 0.5 (1.1-2.2); Bilirubin,Direct 0.7 mg/dL (0.0-0.5); Bilirubin,Indirect 0.4 mg/dL (0.0-1.2); Bilirubin,Total 1.1 mg/dL (0.2-1.2); Calcium 9.2 mg/dL (8.6-10.8); Globulin 6.1 g/dL (2.4-3.5); Potassium 4.6 mEq/L (3.5-4.5)
[2016-10-11] MEDS ORDERED: Ondansetron 4 MG/2 ML VIAL IVP ONE (22:01)
[2016-10-11] MEDS ORDERED: Ondansetron 4 MG/2 ML VIAL ONE (22:02)
[2016-10-11 22:58] LABS: Bilirubin,Urine Negative (Negative); Blood,Urine Negative (Negative); Clarity,Urine Clear (Clear); Color,Urine Yellow (Yellow); Glucose,Urine (UA) Normal (Normal); Ketones,Urine Negative (Negative); Leukocyte Esterase,Urine Trace (Negative); Nitrite,Urine Negative (Negative); PH,Urine 6.5 pH Units (5.0-8.0); Protein,Urine Negative (Neg-Trace); Specific Gravity,Urine 1.014 (1.010-1.025); Urobilinogen,Urine Normal (Normal)
[2016-10-11 23:01] LABS: Bacteria,Urine None Seen per hpf (None-Few); Hyaline Casts,Urine None Seen per lpf (None-Few); RBC,Urine 0-3 per hpf (0-3); Squamous Epithelial Cell,Urine Moderate per lpf (None-Few); WBC,Urine 0-3 per hpf (0-3)
[2016-10-12 01:35] LABS: ABG Base Excess 0.7 mEq/L (-2.0 to 3.0); ABG HCO3 24.2 mEQ/L (21-27); ABG Oxygen Saturation 93 % (95-98); ABG PCO2 34 mmHg (35-45); ABG PH 7.46 pH Units (7.32-7.45); ABG PO2 62 mmHg (85-104); ABG TCO2 25.2 mEq/L (20-26); Blood Gas FiO2 28 %
[2016-10-12] MEDS ORDERED: Acetaminophen 325 MG TABLET PO PRN (04:05)
[2016-10-12] MEDS ORDERED: Naloxone 0.4 MG/ML INJ IVP PRN (04:05)
--- NOTE | 2016-10-12 04:18 | Internal Med History&Physical ---
Date of Encounter: 10/12/16 Time of Encounter: 04:15 Assessment and Plan (1) Encephalopathy Current visit: Yes Status: Acute Patient with underlying cirrhosis, he had altered mental status. I am not aware of the patient's baseline mental condition. No evidence of pneumonia, no UTI. However, the ammonia level is elevated. Possible hepatic encephalopathy, we will give lactulose. Additionally, he had a temperature of 100.9. No evidence of infection at this point, however he has ascites. Possibility of spontaneous bacterial peritonitis needs to be considered. Therefore I would start empiric therapy with IV Rocephin and we will obtain blood cultures. Consider parecentesis. Obtain testing for influenza. (2) Elevated troponin Current visit: Yes Status: Acute Mild elevation of troponins, will monitor trend. 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 King is a 85 year old male with past medical history of cirrhosis, CHF presents with shortness of breath, abdominal distention. According to ED documentation he had worsening shortness breath while at the nursing facility, EMS states that the patient was on room air satting 97% on 2 L and he improved to 100%. Patient also has a history of chronic kidney disease. Currently patient denies any chest pain or abdominal pain. 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 Later tonight he had a temperature of 100.9. Blood pressure is 163/67. Initial blood work included a WBC count of 11.6, hemoglobin 10.7, platelet count 173,000. Sodium 133, potassium 4.6, chloride 99, bicarbonate 24, BUN 49, creatinine 2.22, glucose 114. Troponin was slightly elevated at 0.06, brain natruretic peptide was 1420, ammonia level was elevated at 76. He also had an ABG done. Urinalysis was essentially unremarkable. Chest x-ray did not reveal any pneumonia or acute infiltrates. Past Med Surg Social Fam HX - Past Medical History Medical history: atrial fibrillation, CHF, coronary artery disease, hyperlipidemia, hypertension, myocardial infarction, peripheral artery disease, renal disease, other Psychiatric history: no psych history - Past Surgical History Surgical History: angioplasty/stent, carotid endarterectomy, coronary bypass ( CABG), pacemaker/AICD, vascular surgery, other, pacemaker - Social History Smoking Status: Never smoker Smokeless Tobacco Status: No Alcohol use: none Drug use: none - Family History Father History Unknown: Yes Living Status: Hx Family Cardiac Disorders: Yes Hx Family Endocrine Disorder: Yes Internal Medicine - H&P: Meds Atorvastatin [Lipitor] 40 mg PO HS 06/08/15 [History] Gabapentin [Neurontin] 600 mg PO HS 06/08/15 [History] Garlic 1,000 mg PO DAILY 06/08/15 [History] Loratadine [Claritin] 10 mg PO DAILY PRN 06/08/15 [History] Metoprolol [Lopressor] 50 mg PO BID 06/08/15 [History] Multivitamin [Flintstones] 1 each PO DAILY 06/08/15 [History] [place]-3S/Dha/Epa/Fish Oil [Fish Oil 1,200 mg Softgel] 1 each PO DAILY 06/08/15 [ History] Tamsulosin [Flomax] 0.4 mg PO HS 06/08/15 [History] Montelukast [Singulair] 10 mg PO HS 11/05/15 [History] Isosorbide MONOnitrate (24 HR) [Imdur] 30 mg PO DAILY 30 Days 11/07/15 [Rx] Fluticasone Propionate Nasal [Flonase] 50 mcg NS DAILY 11/09/15 [History] Latanoprost 1 drop BOTH EYES HS 11/28/15 [History] Amlodipine Besylate 10 mg PO DAILY 06/12/16 [History] Ceramides 1,3,6-11 [Cerave] 1 appl TP BID 06/12/16 [History] Hydroxyzine HCl 25 mg PO Q8H PRN 06/12/16 [History] Ferrous Sulfate 325 mg PO BID #60 tablet 07/30/16 [Rx] Lactulose 30 gm PO TID #90 udc 07/30/16 [Rx] Lisinopril [Zestril] 10 mg PO DAILY #30 tablet 07/30/16 [Rx] Potassium Chloride 10 meq PO BIDWM #60 tab.er.prt 07/30/16 [Rx] Furosemide [Lasix] 80 mg PO BID 07/31/16 [History] Levofloxacin [Levaquin] 500 mg PO Q48H #5 tablet 08/06/16 [Rx] Potassium Chloride 10 meq PO BIDWM #20 tab.er.prt 08/06/16 [Rx] Alprazolam [Xanax 0.5 MG Tablet] 0.5 mg PO BID PRN 10/12/16 [History] Calcium Carbonate/Vitamin D3 [Calcium 600 + Vit D Tablet] 1 each PO TID [History] Ipratropium/Albuterol Neb [Duoneb] 3 ml IH Q4HR 10/12/16 [History] Latanoprost [Latanoprost] 1 drop BOTH EYES HS 10/12/16 [History] Metolazone [Zaroxolyn] 2.5 mg PO QWEEK 10/12/16 [History] Allergies clopidogrel [From Plavix] Allergy (Verified 10/11/16 20:47) Itching Cortisone Allergy (Verified 10/11/16 20:47) Joint Pain ROS unobtainable: due to mental status All Systems PM: A 10-system review of systems was performed and is negative for pertinent findings except as documented above in the HPI. - Constitutional Vitals: Temp Pulse Resp BP Pulse Ox 100.9 F H 61 20 163/67 93 L 10/12/16 02:07 10/12/16 02:07 10/12/16 02:07 10/12/16 02:07 10/12/16 02:07 General appearance: Present: A&O X 2, pleasant Exam: Patient is alert, partially oriented. He is not in any respiratory distress during this encounter. - Head Head exam: Present: atraumatic, normocephalic - Eye Eye exam: Present: PERRL, conjuntiva pink, sclera anicteric Pupils: Present: PERRL - Neck Neck exam general surgery: Present: supple, trachea midline. Absent: lymphadenopathy - Respiratory Respiratory exam: Present: decreased breath sounds. Absent: accessory muscle use, rales, rhonchi, wheezes - Cardiovascular Cardiovascular exam: Present: RRR, +S1, +S2. Absent: diastolic murmur, gallop, rubs, systolic murmur - GI/Abdominal GI/Abdominal exam: Present: normal bowel sounds, soft, no peritoneal signs. Absent: distended, tenderness Additional comments: No abdominal tenderness. - Extremities Exam Extremities exam: Present: pedal edema, warm, radial pulses palpable and symetrical. Absent: calf tenderness, cyanotic - Neurological Exam Neurological exam: Present: CN II-XII intact, no focal deficits. Absent: pronater drift, facial droop, speech deficit - Skin Skin exam: Present: dry, intact Internal Med - H&P Results - Labs CBC & Chem 7: 10/11/16 21:36 10/11/16 21:36 - ABG Interpretation ABG results: 10/12/16 01:28 ABG pH 7.46 H ABG pCO2 34 L ABG pO2 62 L ABG HCO3 24.2 ABG Total CO2 25.2 ABG O2 Saturation 93 L ABG Base Excess 0.7
[2016-10-12] MEDS: Lactulose Oral Soln 20 GM/30 ML UDC PO SCH ×2 (05:00→17:26)
[2016-10-12] MEDS: *HR* Heparin 5,000 UNIT/ML VIAL SQ SCH ×2 (05:02→17:32)
[2016-10-12] MEDS ORDERED: Famotidine 20 MG/2 ML VIAL IVP SCH (06:00)
[2016-10-12] MEDS ORDERED: hydrOXYzine pamoate 25 MG CAPSULE PO PRN (08:37)
[2016-10-12] MEDS ORDERED: Loratadine 10 MG TABLET PO PRN (08:37)
[2016-10-12] MEDS ORDERED: *HR* Morphine 2 MG/ML SYRINGE IVP PRN (08:37)
[2016-10-12] MEDS ORDERED: ALPRAZolam 0.5 MG TABLET PO PRN (08:37)
[2016-10-12] MEDS: *HR* HYDROcodone/Acet 5/325 mg TABLET PO PRN ×2 (09:35→12:32)
[2016-10-12] MEDS: Isosorbide MONOnitrate (24 HR) 30 MG TAB.ER.24H PO SCH (09:35)
[2016-10-12] MEDS: amLODIPine 5 MG TABLET PO SCH (09:35)
[2016-10-12] MEDS: Ipratropium/Albuterol Neb 3 ML IH SCH ×4 (11:21→23:39)
[2016-10-12] MEDS: Fluticasone Propionate Nasal 50 MCG/SPRAY BOTTLE NS SCH (12:32)
--- NOTE | 2016-10-12 18:23 | Event Note ---
Date of Encounter: 10/12/16 Time of Encounter: 11:30 Patient seen and examined earlier this morning and he states that he did not sleep at all and would like to be left alone so he could sleep. Patient seen and examined earlier this afternoon and his son was at the bedside. Patient alert and oriented 3 and eating lunch. He denies pain at this time and states his shortness of breath is improving. He is tolerating a regular diet. Fever has subsided. Chest x-ray unremarkable. Flu swab negative. Elevated troponin is chronic, adynamic, and stable. Patient denies chest pain. Mildly elevated ammonia levels noted, lactulose onboard. Abnormal urinalysis noted with culture pending. Continue ceftriaxone for possible SBP though suspicion low. Patient with 3+ pitting edema to bilateral feet, no tibial edema. Regarding disposition, patient and son state that the patient has been at [facility] for 2- 3 months and the plan was to likely discharge him home this coming Thursday. The son is concerned that this may be a setback. We will have OT and PT evaluate him tomorrow and appreciate their recommendations. He does have a stage II pressure ulcer on his coccyx, present on examination. We will continue with position changes and daily dressing changes. We will bring social studies teacher on board as well. Son states that if the patient is strong enough that he would take him in his house, will wait for OT PT consultations tomorrow. Regarding his mentation, patient's encephalopathy appears to have resolved. He is oriented 3. ITS Impressions Chest X-Ray 10/11/16 21:06 IMPRESSION: Low lung volumes. Cardiomegaly with no overt failure or focal pulmonary process. D/ / Prakash Puentes MD / Prakash Puentes MD Interpreting Provider: Prakash Puentes MD
[2016-10-12] MEDS ORDERED: Gabapentin 300 MG CAPSULE PO SCH (21:00)
[2016-10-13 04:37] LABS: INR 1.3; Prothrombin Time 14.3 Seconds (9.4-12.1)
[2016-10-13 04:43] LABS: Basophils % 0.2 %; Eosinophils # 0.1 K/mcL (0.0-0.6); Eosinophils % 2.2 %; Hematocrit 26.8 % (37.5-50.1); Immature Granulocytes % 0.3 % (0-4); Lymphocytes # 0.5 K/mcL (0.6-4.6); Lymphocytes % 7.8 %; Mean Corpuscular HGB Conc 33.2 g/dL (31.6-35.5); Mean Corpuscular Volume 96.4 fL (83.0-100.0); Mean Platelet Volume 12.1 fL (9.4-12.4); Monocytes # 0.4 K/mcL (0.0-1.3); Monocytes % 6.5 %; Neutrophils # 5.4 K/mcL (1.6-8.9); Platelet Count 110 K/mcL (140-400); Red Blood Count 2.78 M/mcL (4.19-5.50)
[2016-10-13 04:53] LABS: Hemoglobin 8.9 g/dL (12.9-16.9)
[2016-10-13 04:54] LABS: Albumin/Globulin Ratio 0.5 (1.1-2.2); Bilirubin,Total 0.7 mg/dL (0.2-1.2); Globulin 4.7 g/dL (2.4-3.5); Magnesium 1.9 mg/dL (1.6-2.6); Potassium 3.6 mEq/L (3.5-4.5)
[2016-10-13 04:55] LABS: Albumin 2.2 g/dL (3.5-5.0); Total Protein 6.9 g/dL (6.0-8.3)
[2016-10-13] MEDS: Ipratropium/Albuterol Neb 3 ML IH SCH ×5 (04:59→20:02)
[2016-10-13] MEDS ORDERED: Famotidine 20 MG/2 ML VIAL IVP SCH (06:00)
[2016-10-13] MEDS: *HR* Heparin 5,000 UNIT/ML VIAL SQ SCH ×2 (06:00→17:17)
--- NOTE | 2016-10-13 06:54 | Electrocardiograph Report ---
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
[2016-10-13] MEDS: Isosorbide MONOnitrate (24 HR) 30 MG TAB.ER.24H PO SCH (07:49)
[2016-10-13] MEDS: Fluticasone Propionate Nasal 50 MCG/SPRAY BOTTLE NS SCH (07:50)
[2016-10-13] MEDS: amLODIPine 5 MG TABLET PO SCH (07:50)
[2016-10-13 14:58] LABS: Hematocrit 27.3 % (37.5-50.1); Hemoglobin 8.9 g/dL (12.9-16.9)
[2016-10-13 15:10] VITALS: BP 102/42
--- NOTE | 2016-10-13 18:01 | Discharge Summary ---
Date of Encounter: 10/13/16 Time of Encounter: 09:30 (and 1600) - Discharge Diagnosis (1) Hepatic encephalopathy Priority: Primary Status: Resolved Comments: Patient was alert and oriented 3 throughout this admission. (2) Goals of care, counseling/discussion Priority: Primary Status: Acute Comments: I spoke to the patient and his son together and there appears to be some sort of discord between the 2. Son told his father that he had "power" over him and that the decisions were his to make. Son was informed that we only used otherwise the power of alumni relations manager once the patient is unable to speak for himself which is not the case during this admission. (3) CKD (chronic kidney disease) stage 4, GFR 15-29 ml/min Priority: Secondary Status: Chronic Comments: Remained stable throughout this admission, follow-up outpatient (4) Increased ammonia level Priority: Primary Status: Resolved Comments: Resolved with lactulose (5) Elevated troponin Priority: Secondary Status: Chronic Comments: Chronic, adynamic, stable. Patient denied chest pain throughout this admission. (6) PAD (peripheral artery disease) Priority: Secondary Status: Chronic (7) CAD (coronary artery disease) Priority: Secondary Status: Chronic Qualifiers: Coronary Disease-Associated Artery/Lesion type: bypass graft [place] vs. transplanted heart: [place] heart Associated angina: with stable angina Qualified Code(s): I25.708 - Atherosclerosis of coronary artery bypass graft(s) , unspecified, with other forms of angina pectoris (8) DVT prophylaxis Priority: Primary Status: Acute Comments: Subcutaneous heparin while admitted (9) Congestive heart failure Priority: Secondary Status: Chronic Comments: Patient had an echocardiogram in July of this year that revealed an ejection fraction of 35% and he is on diuretics at home, combined heart failure. No acute exacerbation. Patient euvolemic on examination during this admission. (10) Hyponatremia Priority: Secondary Status: Chronic Comments: Acute on chronic, stable, follow-up outpatient (11) HTN (hypertension) Priority: Secondary Status: Chronic Comments: Controlled/borderline hypotensive at times however patient asymptomatic. At home, patient is on metoprolol 50 mg twice a day, lisinopril 10 mg daily, imdur 30 mg daily, furosemide 80 mg twice a day, amlodipine 10 mg daily. Qualifiers: Hypertension type: essential hypertension Qualified Code(s): I10 - Essential (primary) hypertension (12) UTI (urinary tract infection) Priority: Primary Status: Acute Comments: Patient denied dysuria however urine culture mixed. He has a history of urinary retention and enlarged prostate. Given that he was febrile with no other known source, he was treated with ceftriaxone while admitted for possible SBP, we will treat off his most recent urinary tract infection from 2 months ago which is pansensitive Enterococcus faecalis, will send home on completed dose of levofloxacin. Qualifiers: Urinary tract infection type: acute cystitis Hematuria presence: without hematuria Qualified Code(s): N30.00 - Acute cystitis without hematuria (13) Cirrhosis of liver with ascites Priority: Secondary Status: Chronic Comments: Liver enzymes unremarkable. Elevated ammonia level quickly resolved shortly after admission. No indication for a paracentesis during this admission. Qualifiers: Hepatic cirrhosis type: unspecified hepatic cirrhosis Qualified Code(s): K74.60 - Unspecified cirrhosis of liver (14) Anemia Priority: Secondary Status: Chronic Comments: He remained hemodynamically stable and was consistent with the lower part of his baseline on day of discharge, follow-up closely outpatient Qualifiers: Anemia type: unspecified type Qualified Code(s): D64.9 - Anemia, unspecified (15) Pressure ulcer of coccygeal region, stage 2 Priority: Secondary Status: Chronic Comments: Follow-up outpatient, present on exam admission - Discharge Medications Prescriptions: HYDROcodone/Acet 5/325 mg [[place] 5-325 mg] 1 tab PO Q6HR PRN #15 tablet PRN Reason: Pain Levofloxacin 750 mg PO Q48H #5 tablet Home Medications: Atorvastatin [Lipitor] 40 mg PO HS 06/08/15 [History] Gabapentin [Neurontin] 600 mg PO HS 06/08/15 [History] Garlic 1,000 mg PO DAILY 06/08/15 [History] Loratadine [Claritin] 10 mg PO DAILY PRN 06/08/15 [History] Metoprolol [Lopressor] 50 mg PO BID 06/08/15 [History] Multivitamin [Flintstones] 1 each PO DAILY 06/08/15 [History] [place]-3S/Dha/Epa/Fish Oil [Fish Oil 1,200 mg Softgel] 1 each PO DAILY 06/08/15 [ History] Montelukast [Singulair] 10 mg PO HS 11/05/15 [History] Isosorbide MONOnitrate (24 HR) [Imdur] 30 mg PO DAILY 30 Days 11/07/15 [Rx] Fluticasone Propionate Nasal [Flonase] 50 mcg NS DAILY 11/09/15 [History] Latanoprost 1 drop BOTH EYES HS 11/28/15 [History] Amlodipine Besylate 10 mg PO DAILY 06/12/16 [History] Hydroxyzine HCl 25 mg PO Q8H PRN 06/12/16 [History] Ferrous Sulfate 325 mg PO BID #60 tablet 07/30/16 [Rx] Lactulose 30 gm PO TID #90 udc 07/30/16 [Rx] Lisinopril [Zestril] 10 mg PO DAILY #30 tablet 07/30/16 [Rx] Furosemide [Lasix] 80 mg PO BID 07/31/16 [History] Potassium Chloride 10 meq PO BIDWM #20 tab.er.prt 08/06/16 [Rx] Alprazolam [Xanax 0.5 MG Tablet] 0.5 mg PO BID PRN 10/12/16 [History] Calcium Carbonate/Vitamin D3 [Calcium 600 + Vit D Tablet] 1 each PO TID [History] Ipratropium/Albuterol Neb [Duoneb] 3 ml IH Q4HR 10/12/16 [History] Metolazone [Zaroxolyn] 2.5 mg PO QWEEK 10/12/16 [History] HYDROcodone/Acet 5/325 mg [[place] 5-325 mg] 1 tab PO Q6HR PRN #15 tablet [Rx] Levofloxacin 750 mg PO Q48H #5 tablet 10/13/16 [Rx] Allergies/Adverse Reactions: Allergies clopidogrel [From Plavix] Allergy (Verified 10/11/16 20:47) Itching Cortisone Allergy (Verified 10/11/16 20:47) Joint Pain Date of admission: 10/12/16 01:07 Primary care physician: Roberta Berrios, Consults: 10/12/16 18:23 Consult to Occupational Therapy [CONS] Routine Comment: Evaluate, develop and implement POC Consult to Physical Therapy [CONS] Routine Comment: Evaluate, develop and implement POC Consult to Tire Mold Engraver [CONS] Routine Reason for SW Consult: has been at [facility] for 2--3 months. initial plan was to go home with family this thursday. OT PT pending. Discharging clinician: Bettye Moreira Anticipated date of discharge: 10/13/16 (with /[facility]) - Patient Status Disposition: Home Health Service Condition: Fair Functional capacity at discharge: uses cane/walker Overall status at discharge: patient is progressing back to baseline - Discharge Instructions Follow Up With: Roberta Berrios MD [Primary Care Provider] - 10/17/16 11:00 am Additional Instructions: Follow up with your primary care provider as scheduled Follow-up appointments: If there is not an appointment listed below, please call your physician and schedule a follow-up appointment. If you have congestive heart failure and your symptoms return, make an appointment with your physician. Medication List: Carry an up to date list of medications you are taking at all time. We have given you an updated medication list including any new medications that you have been prescribed. Please provide that list to your primary provider Symptoms: If your condition changes or you experience any of the following symptoms, notify your physician immediately: Unusual or worsening pain, fever, persistent nausea and vomiting, bleeding, increase in swelling (especially in your legs), sudden weight gain, extreme dizziness, chest pain, increased drainage or redness from a wound or incision. Go to the emergency department if you experience a problem with breathing. Weights: If you have a history of swelling or shortness of breath, weigh yourself daily and notify your physician if you have a weight gain of two or more pounds in one day or 5 or more pounds in a week. If you experience any of the warning signs for stroke: Sudden numbness or weakness of the face, arm or leg; especially on one side of the body, sudden confusion, trouble speaking or understanding, sudden trouble seeing in one or both eyes, sudden trouble walking, dizziness, loss of balance or coordination, sudden sever headache with no cause; Call 911 or go to the emergency room. Stroke is a medical emergency. Some risk factors for stroke: Age, cigarette smoking, diabetes, excessive alcohol consumption, family history , high blood pressure, overweight, physical inactivity, prior stroke, heart attack, diagnosis of carotid artery stenosis or other artery disease. If you smoke, STOP: Smoking or tobacco use significantly increases your risk of heart and lung disease. Your chance of disease greatly increases if you continue to smoke. For more information, call the [place] tobacco quit line for smoking cessation QUIT-NOW ( ) - Diet and Activity Activity: as per physical therapy, increase activity as tolerated Diet: diabetic diet, low fat, low cholesterol, low salt diet Hospital course: Mr. King is a 85 year old male past medical history of cirrhosis, combined CHF, CAD status post CABG, hypertension, hyperlipidemia, chronic kidney disease stage IV, pacemaker/AICD. Patient presented to the emergency department chief complaint worsening shortness of breath while at the senior care. Patient was at inpatient rehabilitation at [facility] for approximately 2-3 months. Patient was seen and evaluated by the emergency department and initially sent to be discharged back to the senior care however he was found to be confused and was then admitted to the hospitalist service for further evaluation and management. Chest x-ray unremarkable for acute processes. Elevated ammonia levels noted and the patient was given lactulose which resolved elevated levels. The patient was alert and oriented 3 throughout this admission. He was treated with ceftriaxone while admitted for an abnormal urinalysis and also possible concern for spontaneous bacterial peritonitis. His liver function tests were unremarkable and a paracentesis was not indicated during this admission. He was able to tolerate a regular diet. He also denied shortness of breath above his norm. Blood cultures negative. Flu swab negative. Elevated troponins were chronic and adynamic. Anemia was at the low end of his normal and again chronic and stable. He was initially febrile of unknown etiology. His urine culture ended up being mixed and unable to be interpreted which is possibly the source of the patient's fever given his history of urinary retention with enlarged prostate and history of urinary tract infections. He was sent home on levofloxacin. Creatinine clearance on day of discharge 28, levofloxacin renally dosed to 750 mg every 48 hours. He was evaluated by occupational and physical therapy both of whom recommended ECF placement. Patient refused stating he is already been there for 2-1/2 months and he wants to go home to be with his . The patient's son then got involved and proceeded to make a comment that he felt as if he was in power over his dad. Patient and son were then educated that the power of alumni relations manager is only utilized when the patient is unable to speak for himself which was not the case here. Again, patient remained alert and oriented 3 throughout this admission and he refused to go back to a senior care. He was sent home with home health and passport services in stable condition with close outpatient follow-up recommended. ITS Impressions Chest X-Ray 10/11/16 21:06 IMPRESSION: Low lung volumes. Cardiomegaly with no overt failure or focal pulmonary process. D/ / Prakahs Puentes MD / Prakash Puentes MD Interpreting Provider: Prakash Puentes MD - Time Spent with Patient Total time spent providing and/or coordinating discharge services: - Constitutional Vitals: Temp Pulse Resp BP Pulse Ox 98.3 F 63 16 102/42 95 10/13/16 14:59 10/13/16 14:59 10/13/16 16:38 10/13/16 14:59 10/13/16 16:38 General appearance: Present: A&O X 3, pleasant, no acute distress, answers questions appropriately - Head Head exam: Present: atraumatic, normocephalic - Eye Eye exam: Present: PERRL, conjuntiva pink, sclera anicteric Pupils: Present: PERRL - Neck Neck exam general surgery: Present: supple, trachea midline. Absent: lymphadenopathy - Respiratory Respiratory exam: Present: decreased breath sounds. Absent: accessory muscle use, rales, respiratory distress, rhonchi, wheezes - Cardiovascular Cardiovascular exam: Present: RRR, +S1, +S2. Absent: diastolic murmur, gallop, rubs, systolic murmur - GI/Abdominal GI/Abdominal exam: Present: distended (but soft), normal bowel sounds, soft, no peritoneal signs. Absent: tenderness - Extremities Exam Extremities exam: Present: warm, radial pulses palpable and symetrical. Absent : calf tenderness, cyanotic, pedal edema - Neurological Exam Neurological exam: Present: alert, CN II-XII intact, oriented X3, no focal deficits, strengths equal and symetr throughout. Absent: pronater drift, facial droop, speech deficit - Skin Skin exam: Present: dry, intact, pallor, warm
--- NOTE | 2016-10-13 18:35 | Physician Discharge Referral ---
Home Health/Hosp Referral Info Transfer to: Home Health Attending Provider: Brianna Moreira CNP Provider in Charge Post Discharge: PCP - Diagnosis (1) Hepatic encephalopathy Priority: Primary Status: Resolved (2) Goals of care, counseling/discussion Priority: Primary Status: Acute (3) CKD (chronic kidney disease) stage 4, GFR 15-29 ml/min Priority: Secondary Status: Chronic (4) Increased ammonia level Priority: Primary Status: Resolved (5) Elevated troponin Priority: Secondary Status: Chronic (6) PAD (peripheral artery disease) Priority: Secondary Status: Chronic (7) CAD (coronary artery disease) Priority: Secondary Status: Chronic (8) DVT prophylaxis Priority: Primary Status: Acute (9) Congestive heart failure Priority: Secondary Status: Chronic (10) Hyponatremia Priority: Secondary Status: Chronic (11) HTN (hypertension) Priority: Secondary Status: Chronic (12) UTI (urinary tract infection) Priority: Primary Status: Acute (13) Cirrhosis of liver with ascites Priority: Secondary Status: Chronic (14) Anemia Priority: Secondary Status: Chronic (15) Pressure ulcer of coccygeal region, stage 2 Priority: Secondary Status: Chronic - Respiratory Orders Smoking Cessation: Smoking cessation has been advised. For more information, call the [place] Tobacco Quit Line at 1-382-VTCW-NOW. - Diet/Nutrition Diet/Nutrition Orders: No Added Salt (PRIMO), Renal, Cardiac, No Concentrated Sweets - Activity Activity Orders: Ambulate (per PT) - Services Needed Following services are medically necessary services: Nursing, Home Health Aide, Physical Therapy, Occupational Therapy, Speech Therapy - Transfer Medications Prescriptions: HYDROcodone/Acet 5/325 mg [[place] 5-325 mg] 1 tab PO Q6HR PRN #15 tablet PRN Reason: Pain Levofloxacin 750 mg PO Q48H #5 tablet Home Medications: Atorvastatin [Lipitor] 40 mg PO HS 06/08/15 [History] Gabapentin [Neurontin] 600 mg PO HS 06/08/15 [History] Garlic 1,000 mg PO DAILY 06/08/15 [History] Loratadine [Claritin] 10 mg PO DAILY PRN 06/08/15 [History] Metoprolol [Lopressor] 50 mg PO BID 06/08/15 [History] Multivitamin [Flintstones] 1 each PO DAILY 06/08/15 [History] [place]-3S/Dha/Epa/Fish Oil [Fish Oil 1,200 mg Softgel] 1 each PO DAILY 06/08/15 [ History] Montelukast [Singulair] 10 mg PO HS 11/05/15 [History] Isosorbide MONOnitrate (24 HR) [Imdur] 30 mg PO DAILY 30 Days 11/07/15 [Rx] Fluticasone Propionate Nasal [Flonase] 50 mcg NS DAILY 11/09/15 [History] Latanoprost 1 drop BOTH EYES HS 11/28/15 [History] Amlodipine Besylate 10 mg PO DAILY 06/12/16 [History] Hydroxyzine HCl 25 mg PO Q8H PRN 06/12/16 [History] Ferrous Sulfate 325 mg PO BID #60 tablet 07/30/16 [Rx] Lactulose 30 gm PO TID #90 udc 07/30/16 [Rx] Lisinopril [Zestril] 10 mg PO DAILY #30 tablet 07/30/16 [Rx] Furosemide [Lasix] 80 mg PO BID 07/31/16 [History] Potassium Chloride 10 meq PO BIDWM #20 tab.er.prt 08/06/16 [Rx] Alprazolam [Xanax 0.5 MG Tablet] 0.5 mg PO BID PRN 10/12/16 [History] Calcium Carbonate/Vitamin D3 [Calcium 600 + Vit D Tablet] 1 each PO TID [History] Ipratropium/Albuterol Neb [Duoneb] 3 ml IH Q4HR 10/12/16 [History] Metolazone [Zaroxolyn] 2.5 mg PO QWEEK 10/12/16 [History] HYDROcodone/Acet 5/325 mg [[place] 5-325 mg] 1 tab PO Q6HR PRN #15 tablet [Rx] Levofloxacin 750 mg PO Q48H #5 tablet 10/13/16 [Rx] Allergies/Adverse Reactions: Allergies clopidogrel [From Plavix] Allergy (Verified 10/11/16 20:47) Itching Cortisone Allergy (Verified 10/11/16 20:47) Joint Pain Certification: Further, I certify that my clinical findings support that this patient is homebound (i.e. absences from home require considerable and taxing effort and are for medical reasons or temple services or infrequently or short duration when for other reasons) because: Homebound Reason: Patient requires assistance of a person or device to safely leave home, Leaving home requires considerable and taxing effort due to condition, Severity of cardiac or pulmonary status limits activity tolerance Attestation: My signature below is to certify that this patient is under my care and that I, or nurse practitioner, or a physician's recruitment and outreach assistant working with me, has a face-to -face encounter with this patient.
== END 2016-10-13 19:40 | disposition home health service (06) ==
LOC: EMEROO 20:42 → 3BNU 20:42
PROVIDERS: ADMIT Nurse Practitioner Family; ATTEND Nurse Practitioner Family

== ENCOUNTER 2016-12-03 19:21 | Inpatient (IN) ==
[2016-12-03 21:49] LABS: Basophils % 0.2 %; Eosinophils # 0.2 K/mcL (0.0-0.6); Eosinophils % 3.3 %; Hematocrit 28.7 % (37.5-50.1); Hemoglobin 10.2 g/dL (12.9-16.9); Immature Granulocytes % 0.5 % (0-4); Lymphocytes # 0.7 K/mcL (0.6-4.6); Lymphocytes % 11.4 %; Mean Corpuscular HGB Conc 35.5 g/dL (31.6-35.5); Mean Corpuscular Hemoglobin 31.8 pg (28.0-33.3); Mean Platelet Volume 10.5 fL (9.4-12.4); Monocytes # 0.5 K/mcL (0.0-1.3); Monocytes % 8.4 %; Neutrophils # 4.9 K/mcL (1.6-8.9); Platelet Count 118 K/mcL (140-400); Red Blood Count 3.21 M/mcL (4.19-5.50); Red Cell Distribution Width 13.4 % (11.5-14.5); Segmented Neutrophils % 76.2 %
[2016-12-03 21:56] LABS: INR 1.3; Prothrombin Time 14.4 Seconds (9.4-12.1)
[2016-12-03 21:58] LABS: Activated Partial Thrombo Time 35.9 Seconds (26.0-36.0)
[2016-12-03 22:02] LABS: Albumin 3.2 g/dL (3.5-5.0); Albumin/Globulin Ratio 0.6 (1.1-2.2); Potassium 3.7 mEq/L (3.5-4.5); Total Protein 8.2 g/dL (6.0-8.3)
[2016-12-03 22:07] LABS: Bilirubin,Urine Negative (Negative); Blood,Urine Negative (Negative); Clarity,Urine Clear (Clear); Color,Urine Yellow (Yellow); Glucose,Urine (UA) Normal (Normal); Ketones,Urine Negative (Negative); Leukocyte Esterase,Urine Trace (Negative); Nitrite,Urine Negative (Negative); PH,Urine 6.5 pH Units (5.0-8.0); Protein,Urine Negative (Neg-Trace); Specific Gravity,Urine 1.009 (1.010-1.025); Urobilinogen,Urine Normal (Normal)
[2016-12-03 22:09] LABS: Bacteria,Urine None Seen per hpf (None-Few); Hyaline Casts,Urine None Seen per lpf (None-Few); RBC,Urine 0-3 per hpf (0-3); Squamous Epithelial Cell,Urine Few per lpf (None-Few); WBC,Urine 0-3 per hpf (0-3)
--- NOTE | 2016-12-03 22:11 | Emergency Department Note ---
Disposition Clinical Impression: Hyponatremia, Weakness, Encephalopathy, hepatic, CKD (chronic kidney disease) stage 4, GFR 15-29 ml/min Fall Qualifiers: Encounter type: initial encounter Qualified Code(s): W19.XXXA - Unspecified fall, initial encounter Anemia Qualifiers: Anemia type: unspecified type Qualified Code(s): D64.9 - Anemia, unspecified Congestive heart failure (CHF) Qualifiers: Congestive heart failure type: combined Congestive heart failure chronicity: chronic Qualified Code(s): I50.42 - Chronic combined systolic (congestive) and diastolic (congestive) heart failure Disposition: Admitted As Inpatient Condition: Fair Time of Disposition: 21:30 (Patient dispo at 21:30 on 12/03/16) Weakness HPI - General Chief complaint: ED Extremity Problem,Nontraumatic Stated complaint: Leg pain, diff AMB Time Seen by Provider: 12/03/16 21:03 Source: patient Mode of arrival: ambulatory Limitations: no limitations, age Nursing Notes Reviewed: Yes Vital Signs Reviewed: Yes - History of Present Illness HPI Narrative: Patient presents to ED with fall at home today. Patient's history is provided by the patient and by the patient's home health nurse, with whom I spoke on the telephone. Home health nurse was the first person to find the patient down. Health nurseCee can be reached at [phone]. Patient states that he was walking to the bathroom, when his legs felt suddenly weak. Unable to support his own weight, he grabbed onto the bathroom sink. However, he was unable to remain standing and went to the ground. Patient states that he did not hit his head. He denies any injury to the body as a result of the fall. Denies loss of consciousness. Patient denies having this happen before. Patient's nurse states that he has gained weight in the last 2 days. She suspects this is secondary to high-salt diet he consumes. Patient admits to chronic cough productive of white sputum. He admits abdominal swelling that is chronic, but worsened today. He admits lower leg swelling that is chronic, but worsened. He denies dysuria, but does admit to decrease in urine stream. Also , he admits to 2-3 episodes of nocturia each night. Patient denies dizziness, chest pain, dyspnea, problems moving bowels. Patient states that he was recently released from the [place] [facility]. Per review of the medical record, the patient was admitted to a [place] [facility] in July,. Patient does not know why he was in the [place] [facility]. He has home health for 8 hours per day, but is alone is his home at night. Pt Subjective Complaint: generalized weakness/fatigue Pain Scale: 8 - Related Data Home Medications Medication Instructions Recorded Confirmed Atorvastatin [Lipitor] 40 mg PO HS 06/08/15 12/04/16 Gabapentin [Neurontin] 600 mg PO HS 06/08/15 12/04/16 Garlic 1,000 mg PO DAILY 06/08/15 12/03/16 Loratadine [Claritin] 10 mg PO DAILY PRN 06/08/15 12/03/16 Metoprolol [Lopressor] 50 mg PO BID 06/08/15 12/04/16 Multivitamin [Flintstones] 1 each PO DAILY 06/08/15 12/03/16 [place]-3S/Dha/Epa/Fish Oil [Fish 1 each PO DAILY 06/08/15 12/03/16 Oil 1,200 mg Softgel] Montelukast [Singulair] 10 mg PO HS 11/05/15 12/04/16 Fluticasone Propionate Nasal 50 mcg NS DAILY 11/09/15 12/03/16 [Flonase] Latanoprost 1 drop BOTH EYES HS 11/28/15 12/04/16 Amlodipine Besylate 10 mg PO DAILY 06/12/16 12/03/16 hydrOXYzine HCl [Hydroxyzine HCl] 25 mg PO Q8H PRN 06/12/16 12/03/16 Furosemide [Lasix] 80 mg PO BID 07/31/16 12/04/16 ALPRAZolam [Xanax 0.5 MG Tablet] 0.5 mg PO BID PRN 10/12/16 12/03/16 Calcium Carbonate/Vitamin D3 1 each PO TID 10/12/16 12/03/16 [Calcium 600 + Vit D Tablet] Ipratropium/Albuterol Neb [Duoneb] 3 ml IH Q6H PRN 10/12/16 12/03/16 metOLazone [Zaroxolyn] 2.5 mg PO BID PRN 10/12/16 12/04/16 Isosorbide MONOnitrate (24 HR) 60 mg PO DAILY 12/03/16 12/04/16 [Imdur] Lactulose 20 gm PO BID 12/03/16 12/04/16 Lisinopril [Zestril] 5 mg PO DAILY 12/03/16 12/04/16 Previous Rx's Medication Instructions Recorded Ferrous Sulfate 325 mg PO BID #60 tablet 07/30/16 Potassium Chloride 10 meq PO BIDWM #20 tab.er.prt 08/06/16 Allergies Allergy/AdvReac Type Severity Reaction Status Date / Time clopidogrel [From Plavix] Allergy Itching Verified 12/03/16 19:46 Cortisone Allergy Joint Pain Verified 12/03/16 19:46 Constitutional: Reports: as per HPI Eyes: Reports: as per HPI ENT ED: Reports: as per HPI Cardiovascular: Reports: as per HPI Respiratory: Reports: as per HPI Gastrointestinal: Reports: as per HPI Genitourinary: Reports: as per HPI Musculoskeletal: Reports: as per HPI Integumentary: Reports: as per HPI Neurological: Reports: as per HPI Psychiatric: Reports: as per HPI Endocrine: Reports: as per HPI Hematological/Lymphatic: Reports: as per HPI Allergic/Immunologic: Reports: as per HPI Past Medical History - Past Medical History Medical history: Reports: atrial fibrillation, CHF, coronary artery disease, hyperlipidemia, hypertension, myocardial infarction, peripheral artery disease, renal disease, other Surgical history: Reports: angioplasty/stent, carotid endarterectomy, coronary bypass (CABG), pacemaker/AICD, vascular surgery, other, pacemaker Psychiatric history: Reports: no psych history - Social History Smoking Status: Never smoker Smokeless Tobacco Status: No Alcohol use: Reports: none Drug use: Reports: none Physical Exam - General Limitations: no limitations General appearance: alert, in no apparent distress - Head Head exam: atraumatic, normocephalic, normal inspection - Eye Eye exam: Present: normal appearance, EOMI - Neck Neck exam: Present: normal inspection, full ROM, trachea midline, other (No carotid bruit appreciated. However, I did appreicate radiation of the systolic heart murmur to bilateral carotids. ). Absent: tenderness, meningismus, lymphadenopathy, thyromegaly - Chest Chest inspection: Present: normal inspection, symmetric chest wall rise. Absent : tenderness - Respiratory Respiratory exam: Present: normal lung sounds bilaterally. Absent: respiratory distress, wheezes, stridor, accessory muscle use - Cardiovascular Cardiovascular exam: Present: regular rate, normal rhythm, systolic murmur ( harsh 5/6 blowing systolic murmur at right sternal border), +S2. Absent: diastolic murmur, rubs, gallop, JVD - Abdominal Exam Abdominal exam: Present: soft, Non-Tender, distention (Tympany presnet on percussion. No fluid wave appreciated. ), normal bowel sounds. Absent: guarding, rebound, rigidity - Extremities Exam Extremities exam: Present: full ROM, tenderness (TTP to pressure of lower extremity edeam. No point tenderness, tender nodules, or isolated areas of swelling upon palpation of entire lower extremity from popliteal ), normal capillary refill, pedal edema (2+ pitting edema to left lower leg to the level of the knee. Patient states this is chronic. 1+ pitting edema to right lower leg to level of the knee. Patient states this is chronic. ). Absent: calf tenderness - Expanded Lower Extremity Exam Ankle exam: Present: deformity, other (Left ankle and foot with deformity of exernal rotation. Patient states this is chronic.) - Back Exam Back exam: Present: normal inspection, full ROM - Neurological Exam Neurological exam: Present: alert, oriented X3, CN II-XII intact, other (Hard of hearing with hearing aid in place.) - Psychiatric Psychiatric exam: Present: normal affect, normal mood - Skin Skin exam: Present: warm, dry, intact Course Vital Signs Temperature 98.9 F 12/03/16 19:43 Pulse Rate 74 12/03/16 19:43 Respiratory Rate 16 12/03/16 19:43 Blood Pressure 114/62 12/03/16 19:43 O2 Sat by Pulse Oximetry 97 12/03/16 19:43 Temperature 97.5 F L 12/05/16 11:03 Pulse Rate 68 12/05/16 11:03 Respiratory Rate 16 12/05/16 11:03 Blood Pressure 118/62 12/05/16 11:03 O2 Sat by Pulse Oximetry 97 12/05/16 11:03 Oxygen Delivery Oxygen Delivery Room Air Weakness - MDM Narrative Medical decision making narrative: Patient presented with fall at home due to lower leg weakness. Patient has a normal EKG with ventricular pacing at 68 bpm. No evidence of ST or T wave changes to suggest ischemia. Patient does have hyponatremia on BMP, which may suggest underlying etiology of weakness. Ammonia level is normal, therefore I do not suspect worsening of hepatic encephalopathy, for which he takes lactulose Bid. CXR does not demonstrate worsening pleural effusions to suggest CHF exacerbation. Patient is is no acute distress at this time. However, given his generalized weakness and recent fall, I believe patient would benefit from inpatient stay to correct his sodium abnormality. - Medical Records Medical records reviewed: Yes I reviewed the patient's medical records. - Lab Data Lab results reviewed: Yes I reviewed the patient's lab results. Result diagrams: 12/04/16 06:04 12/05/16 05:57 Lab Results 12/03/16 12/03/16 12/03/16 Range/Units 21:40 21:40 21:40 WBC 6.4 (4.3-11.1) K/mcL RBC 3.21 L (4.19-5.50) M/mcL Hgb 10.2 L (12.9-16.9) g/dL Hct 28.7 L (37.5-50.1) % MCV 89.4 D (83.0-100.0) fL MCH 31.8 (28.0-33.3) pg MCHC 35.5 (31.6-35.5) g/dL RDW 13.4 (11.5-14.5) % Plt Count 118 L (140-400) K/mcL MPV 10.5 (9.4-12.4) fL Immature Gran % 0.5 (0-4) % Seg Neutrophils % 76.2 % Lymphocytes % 11.4 % Monocytes % 8.4 % Eosinophils % 3.3 % Basophils % 0.2 % Neutrophils # 4.9 (1.6-8.9) K/mcL Lymphocytes # 0.7 (0.6-4.6) K/mcL Monocytes # 0.5 (0.0-1.3) K/mcL Eosinophils # 0.2 (0.0-0.6) K/mcL Basophils # 0.0 (0.0-0.2) K/mcL Platelet Estimate Decreased L (Normal) PT 14.4 H (9.4-12.1) Seconds INR 1.3 APTT 35.9 (26.0-36.0) Seconds Sodium 120 L* (136-145) mEq/L Potassium 3.7 (3.5-4.5) mEq/L Chloride 85 L (98-109) mEq/L Carbon Dioxide 22 (19-29) mEq/L BUN 90 H (8-26) mg/dL Creatinine 2.51 H (0.72-1.25) mg/dL Est GFR ( Amer) 30 L (> 60) Est GFR (Non-Af Amer) 25 L (> 60) BUN/Creatinine Ratio 36 H (6-26) Glucose 107 H (70-99) mg/dL Calculated Osmolality 278 L (280-300) Calcium 9.0 (8.6-10.8) mg/dL Total Bilirubin 1.0 (0.2-1.2) mg/dL AST 39 H (5-34) Units/L ALT 20 (0-55) Units/L Alkaline Phosphatase 144 H (38-126) Units/L Ammonia (18-72) mcmol/L Troponin I (0-0.03) ng/mL B-Natriuretic Peptide (0-100) pg/mL Serum Total Protein 8.2 (6.0-8.3) g/dL Albumin 3.2 L (3.5-5.0) g/dL Globulin 5.0 H (2.4-3.5) g/dL Albumin/Globulin Ratio 0.6 L (1.1-2.2) TSH (0.350-4.840) mcIU/mL Urine Color (Yellow) Urine Clarity (Clear) Urine pH (5.0-8.0) pH Units Ur Specific Wilmer (1.010-1.025) Urine Protein (Neg-Trace) mg/dL Urine Glucose (UA) (Normal) mg/dL Urine Ketones (Negative) mg/dL Urine Blood (Negative) Urine Nitrite (Negative) Urine Bilirubin (Negative) Urine Urobilinogen (Normal) mg/dL Ur Leukocyte Esterase (Negative) Urine Microscopic RBC (0-3) per hpf Urine Microscopic WBC (0-3) per hpf Ur Squamous Epith Cells (None-Few) per lpf Urine Bacteria (None-Few) per hpf Hyaline Casts (None-Few) per lpf 12/03/16 12/03/16 12/03/16 Range/Units 21:40 21:40 21:40 WBC (4.3-11.1) K/mcL RBC (4.19-5.50) M/mcL Hgb (12.9-16.9) g/dL Hct (37.5-50.1) % MCV (83.0-100.0) fL MCH (28.0-33.3) pg MCHC (31.6-35.5) g/dL RDW (11.5-14.5) % Plt Count (140-400) K/mcL MPV (9.4-12.4) fL Immature Gran % (0-4) % Seg Neutrophils % % Lymphocytes % % Monocytes % % Eosinophils % % Basophils % % Neutrophils # (1.6-8.9) K/mcL Lymphocytes # (0.6-4.6) K/mcL Monocytes # (0.0-1.3) K/mcL Eosinophils # (0.0-0.6) K/mcL Basophils # (0.0-0.2) K/mcL Platelet Estimate (Normal) PT (9.4-12.1) Seconds INR APTT (26.0-36.0) Seconds Sodium (136-145) mEq/L Potassium (3.5-4.5) mEq/L Chloride (98-109) mEq/L Carbon Dioxide (19-29) mEq/L BUN (8-26) mg/dL Creatinine (0.72-1.25) mg/dL Est GFR ( Amer) (> 60) Est GFR (Non-Af Amer) (> 60) BUN/Creatinine Ratio (6-26) Glucose (70-99) mg/dL Calculated Osmolality (280-300) Calcium (8.6-10.8) mg/dL Total Bilirubin (0.2-1.2) mg/dL AST (5-34) Units/L ALT (0-55) Units/L Alkaline Phosphatase (38-126) Units/L Ammonia 58 (18-72) mcmol/L Troponin I (0-0.03) ng/mL B-Natriuretic Peptide 2111 H (0-100) pg/mL Serum Total Protein (6.0-8.3) g/dL Albumin (3.5-5.0) g/dL Globulin (2.4-3.5) g/dL Albumin/Globulin Ratio (1.1-2.2) TSH 2.879 (0.350-4.840) mcIU/mL Urine Color (Yellow) Urine Clarity (Clear) Urine pH (5.0-8.0) pH Units Ur Specific Wilmer (1.010-1.025) Urine Protein (Neg-Trace) mg/dL Urine Glucose (UA) (Normal) mg/dL Urine Ketones (Negative) mg/dL Urine Blood (Negative) Urine Nitrite (Negative) Urine Bilirubin (Negative) Urine Urobilinogen (Normal) mg/dL Ur Leukocyte Esterase (Negative) Urine Microscopic RBC (0-3) per hpf Urine Microscopic WBC (0-3) per hpf Ur Squamous Epith Cells (None-Few) per lpf Urine Bacteria (None-Few) per hpf Hyaline Casts (None-Few) per lpf 12/03/16 12/03/16 Range/Units 21:40 21:50 WBC (4.3-11.1) K/mcL RBC (4.19-5.50) M/mcL Hgb (12.9-16.9) g/dL Hct (37.5-50.1) % MCV (83.0-100.0) fL MCH (28.0-33.3) pg MCHC (31.6-35.5) g/dL RDW (11.5-14.5) % Plt Count (140-400) K/mcL MPV (9.4-12.4) fL Immature Gran % (0-4) % Seg Neutrophils % % Lymphocytes % % Monocytes % % Eosinophils % % Basophils % % Neutrophils # (1.6-8.9) K/mcL Lymphocytes # (0.6-4.6) K/mcL Monocytes # (0.0-1.3) K/mcL Eosinophils # (0.0-0.6) K/mcL Basophils # (0.0-0.2) K/mcL Platelet Estimate (Normal) PT (9.4-12.1) Seconds INR APTT (26.0-36.0) Seconds Sodium (136-145) mEq/L Potassium (3.5-4.5) mEq/L Chloride (98-109) mEq/L Carbon Dioxide (19-29) mEq/L BUN (8-26) mg/dL Creatinine (0.72-1.25) mg/dL Est GFR ( Amer) (> 60) Est GFR (Non-Af Amer) (> 60) BUN/Creatinine Ratio (6-26) Glucose (70-99) mg/dL Calculated Osmolality (280-300) Calcium (8.6-10.8) mg/dL Total Bilirubin (0.2-1.2) mg/dL AST (5-34) Units/L ALT (0-55) Units/L Alkaline Phosphatase (38-126) Units/L Ammonia (18-72) mcmol/L Troponin I 0.06 H* (0-0.03) ng/mL B-Natriuretic Peptide (0-100) pg/mL Serum Total Protein (6.0-8.3) g/dL Albumin (3.5-5.0) g/dL Globulin (2.4-3.5) g/dL Albumin/Globulin Ratio (1.1-2.2) TSH (0.350-4.840) mcIU/mL Urine Color Yellow (Yellow) Urine Clarity Clear (Clear) Urine pH 6.5 (5.0-8.0) pH Units Ur Specific Wilmer 1.009 L (1.010-1.025) Urine Protein Negative (Neg-Trace) mg/dL Urine Glucose (UA) Normal (Normal) mg/dL Urine Ketones Negative (Negative) mg/dL Urine Blood Negative (Negative) Urine Nitrite Negative (Negative) Urine Bilirubin Negative (Negative) Urine Urobilinogen Normal (Normal) mg/dL Ur Leukocyte Esterase Trace H (Negative) Urine Microscopic RBC 0-3 (0-3) per hpf Urine Microscopic WBC 0-3 (0-3) per hpf Ur Squamous Epith Cells Few (None-Few) per lpf Urine Bacteria None Seen (None-Few) per hpf Hyaline Casts None Seen (None-Few) per lpf - Radiology Data Radiology results reviewed: Yes I reviewed the patient's radiology results. - EKG Data EKG results narrative: EKG ventricular paced rhythm at HR of 68 bpm. No evidence of ST segment elevation, depression, or T wave changes to suggest ischemia. Attestation Statement - Attestation Attestation: I personally interviewed and examined this patient and my medical decision- making was reviewed with the Resident Physician, Dr. Arrington. I agree with the documented findings, disposition and treatment plan as described except to the extent set forth below. 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 Pt arrives A&O x 3, in NAD, with stable VS. Pt c/o "unable to stay on my feet", due ot gen weakness. 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 Speech clear, no focal deficits. Pt denies any CP/press, no syncope/ near syncope, no SOB, no abd pain/flank pain. No N/V/D, no urinary sxs. Pt denies any injuries related to fall. Agree with PE as documented. Pt with paced rhythm on EKG. Labs unremarkable with the exception of low sodium. Pt with hx chronic hyponatremia. Unclear etiology regarding gen weakness. No infections, no exac of CHF, no ischemia/neg trop. Will continue hydration, and recommend admission as pt is fall risk at home currently. Would benefit from hospitalization for mgmt of low sodium and social welfare clerk consult.
[2016-12-03 22:12] LABS: Mean Corpuscular Volume 89.4 fL (83.0-100.0)
[2016-12-03 22:40] LABS: Platelet Estimate Decreased (Normal)
[2016-12-03] MEDS: 0.9 % Sodium Chloride 1,000 ML IVC SCH (23:24)
[2016-12-04] MEDS ORDERED: Naloxone 0.4 MG/ML INJ IVP PRN (04:45)
[2016-12-04] MEDS ORDERED: Ondansetron 4 MG/2 ML VIAL IVP PRN (04:45)
[2016-12-04] MEDS ORDERED: hydrOXYzine pamoate 25 MG CAPSULE PO PRN (04:53)
[2016-12-04] MEDS ORDERED: Ipratropium/Albuterol Neb 3 ML IH PRN (04:53)
--- NOTE | 2016-12-04 07:11 | Internal Med History&Physical ---
Date of Encounter: 12/04/16 Time of Encounter: 04:30 Assessment and Plan (1) Hyponatremia Current visit: Yes Status: Acute Multifactorial- cirrhosis/ascites, diuretic use, CHF; will give IV hydration for now, hold diuretics and recheck serum sodium; check serum and urine osmolality and urine sodium; (2) Weakness Current visit: Yes Status: Acute due to hyponatremia; plan as above; (3) CKD (chronic kidney disease) stage 4, GFR 15-29 ml/min Current visit: Yes Status: Chronic serum creatinine at baseline; avoid nephrotoxic agents; (4) Congestive heart failure (CHF) Current visit: Yes Status: Chronic hold diuretics and continue other home meds; Qualifiers: Congestive heart failure type: combined Congestive heart failure chronicity : chronic Qualified Code(s): I50.42 - Chronic combined systolic (congestive) and diastolic (congestive) heart failure (5) PAD (peripheral artery disease) Current visit: Yes Status: Chronic (6) Atrial fibrillation, permanent Current visit: Yes Status: Chronic continue rate-control meds. 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 but INR noted to be 1.3 and Coumadin not noted on home med list; to obtain accurate medication list from patient;s pharmacy in am; (7) HTN (hypertension) Current visit: Yes Status: Chronic Qualifiers: Hypertension type: essential hypertension Qualified Code(s): I10 - Essential (primary) hypertension (8) Cirrhosis Current visit: Yes Status: Chronic Patient has underlying cirrhosis and ascites, which could be contributing to hyponatremia; abdominal U/S to evaluate for ascites; continue Lactulose; Qualifiers: Hepatic cirrhosis type: unspecified hepatic cirrhosis Ascites presence: with ascites Qualified Code(s): K74.60 - Unspecified cirrhosis of liver Internal Medicine - H&P: HPI Chief complaint: Weakness Admitted From: Emergency Dept Plans for Post Hospital Care: Home History of present illness: Mr. King is a 86 year old male with h/o- CKD, cirrhosis, CHF, with frequent hospitalizations due to volume status issues, presents with c/o- generalized weakness and legs giving out and almost sustaining falls. Patient only provides a limited history due to underlying mild dementia and hearing loss; history is obtained from review of previous records. Patient was recently discharged home after being treated for volume overload due to CHF. He reports no fever/chills, cough, shortness of breath, chest or abdominal pain. No reported nausea, vomiting, diarrhea. He has abdominal distension, chronic. Cannot report regarding urine output. Past Med Surg Social Fam HX - Past Medical History Medical history: atrial fibrillation, CHF, coronary artery disease, hyperlipidemia, hypertension, liver disease, myocardial infarction, peripheral artery disease, renal disease, other Psychiatric history: no psych history - Past Surgical History Surgical History: angioplasty/stent, carotid endarterectomy, coronary bypass ( CABG), pacemaker/AICD, vascular surgery, other (from previous records), pacemaker - Social History Smoking Status: Never smoker Smokeless Tobacco Status: No Alcohol use: none Drug use: none Occupational status: retired Current living situation: Home, With Family Activity Level: Uses cane/walker Recent Out of Country Travel Within the Last 8 Weeks: No - Family History Father Living Status: Hx Family Cardiac Disorders: Yes Hx Family Endocrine Disorder: Yes Internal Medicine - H&P: Meds Atorvastatin [Lipitor] 40 mg PO HS 06/08/15 [History] Gabapentin [Neurontin] 600 mg PO HS 06/08/15 [History] Garlic 1,000 mg PO DAILY 06/08/15 [History] Loratadine [Claritin] 10 mg PO DAILY PRN 06/08/15 [History] Metoprolol [Lopressor] 50 mg PO BID 06/08/15 [History] Multivitamin [Flintstones] 1 each PO DAILY 06/08/15 [History] [place]-3S/Dha/Epa/Fish Oil [Fish Oil 1,200 mg Softgel] 1 each PO DAILY 06/08/15 [ History] Montelukast [Singulair] 10 mg PO HS 11/05/15 [History] Fluticasone Propionate Nasal [Flonase] 50 mcg NS DAILY 11/09/15 [History] Latanoprost 1 drop BOTH EYES HS 11/28/15 [History] Amlodipine Besylate 10 mg PO DAILY 06/12/16 [History] hydrOXYzine HCl [Hydroxyzine HCl] 25 mg PO Q8H PRN 06/12/16 [History] Ferrous Sulfate 325 mg PO BID #60 tablet 07/30/16 [Rx] Furosemide [Lasix] 80 mg PO BID 07/31/16 [History] Potassium Chloride 10 meq PO BIDWM #20 tab.er.prt 08/06/16 [Rx] ALPRAZolam [Xanax 0.5 MG Tablet] 0.5 mg PO BID PRN 10/12/16 [History] Calcium Carbonate/Vitamin D3 [Calcium 600 + Vit D Tablet] 1 each PO TID [History] Ipratropium/Albuterol Neb [Duoneb] 3 ml IH Q6H PRN 10/12/16 [History] metOLazone [Zaroxolyn] 2.5 mg PO BID PRN 10/12/16 [History] Isosorbide MONOnitrate (24 HR) [Imdur] 60 mg PO DAILY 12/03/16 [History] Lactulose 20 gm PO BID 12/03/16 [History] Lisinopril [Zestril] 5 mg PO DAILY 12/03/16 [History] Allergies clopidogrel [From Plavix] Allergy (Verified 12/03/16 19:46) Itching Cortisone Allergy (Verified 12/03/16 19:46) Joint Pain All Systems PM: A 10-system review of systems was performed and is negative for pertinent findings except as documented above in the HPI. - Constitutional Constitutional: no chills, no fever(s), no night sweats - EENT Eyes: no change in vision, no discharge, no pain, no photophobia Ears: no ear discharge, no ear pain, no tinnitus Nose, mouth and throat: no dysphagia, no nasal discharge, no neck pain, no sore throat - Cardiovascular Cardiovascular ROS IM: no chest pain, no diaphoresis, no dyspnea, no lightheadedness, no palpitations, no syncope - Respiratory Respiratory: no cough, no dyspnea, no wheezing, no excessive phlegm production - Gastrointestinal Gastrointestinal: no abdominal pain, no diarrhea, no hematemesis, no hematochezia, no melena, no nausea, no vomiting - Musculoskeletal Musculoskeletal ROS IM: muscle weakness - Integumentary Integumentary IM: no rash, no unusual bruising - Neurological Neurological ROS: weakness - Hematologic/Lymphatic Hematologic/Lymphatic: no easy bruising - Constitutional Vitals: Temp Pulse Resp BP Pulse Ox 97.4 F L 72 16 131/66 96 12/04/16 06:29 12/04/16 06:29 12/04/16 06:29 12/04/16 06:29 12/04/16 06:29 General appearance: Present: A&O X 2 - Respiratory Respiratory exam: Present: CTAB. Absent: accessory muscle use, rales, rhonchi, wheezes - Cardiovascular Cardiovascular exam: Present: irregular rhythm, +S1, +S2. Absent: diastolic murmur, gallop, rubs, systolic murmur - GI/Abdominal GI/Abdominal exam: Present: distended, normal bowel sounds, soft, no peritoneal signs. Absent: tenderness - Extremities Exam Extremities exam: Present: pedal edema, warm, radial pulses palpable and symetrical. Absent: calf tenderness, cyanotic - Neurological Exam Neurological exam: Present: CN II-XII intact, no focal deficits. Absent: pronater drift, facial droop, speech deficit - Skin Skin exam: Present: dry, intact Internal Med - H&P Results - Labs CBC & Chem 7: 12/04/16 06:04 12/04/16 23:50
[2016-12-04 07:14] LABS: Basophils % 0.2 %; Eosinophils # 0.3 K/mcL (0.0-0.6); Eosinophils % 4.7 %; Hematocrit 29.6 % (37.5-50.1); Hemoglobin 10.4 g/dL (12.9-16.9); Immature Granulocytes % 0.3 % (0-4); Lymphocytes # 0.9 K/mcL (0.6-4.6); Lymphocytes % 15.7 %; Mean Corpuscular HGB Conc 35.1 g/dL (31.6-35.5); Mean Corpuscular Hemoglobin 31.4 pg (28.0-33.3); Mean Corpuscular Volume 89.4 fL (83.0-100.0); Mean Platelet Volume 11.1 fL (9.4-12.4); Monocytes # 0.6 K/mcL (0.0-1.3); Monocytes % 9.5 %; Neutrophils # 4.2 K/mcL (1.6-8.9); Platelet Count 118 K/mcL (140-400); Red Blood Count 3.31 M/mcL (4.19-5.50); Red Cell Distribution Width 13.6 % (11.5-14.5); Segmented Neutrophils % 69.6 %
[2016-12-04 07:19] LABS: Calcium 8.8 mg/dL (8.6-10.8); Potassium 3.4 mEq/L (3.5-4.5)
[2016-12-04 07:21] LABS: Magnesium 2.2 mg/dL (1.6-2.6); Phosphorous 4.4 mg/dL (2.3-4.7)
[2016-12-04] MEDS ORDERED: metOLazone 2.5 MG TABLET PO SCH (09:00)
[2016-12-04] MEDS: Multivit/Ca/Min/Fe/FA 1 TAB TABLET PO SCH (10:00)
[2016-12-04] MEDS: Lactulose Oral Soln 20 GM/30 ML UDC PO SCH ×2 (10:00→20:53)
[2016-12-04] MEDS: Isosorbide MONOnitrate (24 HR) 60 MG TAB.ER.24H PO SCH (10:00)
[2016-12-04] MEDS: Calcium 600 + Vit D PO SCH ×3 (10:01→20:59)
[2016-12-04] MEDS: amLODIPine 5 MG TABLET PO SCH (10:01)
[2016-12-04] MEDS ORDERED: metOLazone 2.5 MG TABLET PO PRN (10:05)
[2016-12-04] MEDS: Fluticasone Propionate Nasal 50 MCG/SPRAY BOTTLE NS SCH (10:23)
--- NOTE | 2016-12-04 11:14 | Nephrology Consult Note ---
Date of Encounter: 12/04/16 Time of Encounter: 11:14 Assessment and Plan (1) CKD (chronic kidney disease) stage 4, GFR 15-29 ml/min Current Visit: Yes Status: Chronic Known history of CKD stage 4. BUN 86, Cr 2.39, GFR 26. Review of last eCW note 11/11/16 for Hospital follow up indicates patient was on metolazone 2.5mg bid for 14 days, change from previous eCW med list on . Continue with renal protective strategy, avoid nephrotoxins, no urgent dialysis need at this time. Continue to monitor labs. (2) Hyponatremia Current Visit: Yes Status: Acute Patient with a known history of low to low normal sodium around 130s was found to have sodium of 120 upon arrival to the ED. Sodium 120, 121, 121 TSH 2.879, normal UA negative for UTI, specific gravity low at 1.009. May be secondary to medications, particularly metolazone as reviewed in most recent eCW note 11/11/16 for Hospital follow up. Recheck/confirm patient's weight. Last eCW visit 11/11/16 176Lbs. Check serum osm, Urine sodium, Urine osm AM cortisol Fluid restriction 1.5L/day Check BMP q12h With history of CHF, recommend checking Echo. Bladder scan. Correction no more than 6-8mEq/24 hours. (3) Weakness Current Visit: Yes Status: Acute May be secondary to hyponatremia. Continue additional management per Hospitalist. 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 Hb 10.4, stable. Qualifiers: Anemia type: unspecified type Qualified Code(s): D64.9 - Anemia, unspecified (5) Suprapubic abdominal pain Current Visit: Yes Status: Acute Patient reports he was not drinking much fluids because he has been having trouble urinating. Suprapubic tenderness on abdominal exam. UA negative for UTI. Specific gravity low at 1.009. Bladder scan, rule out obstruction. History of Present Illness - Reason for Consult Consult date: 12/04/16 Chronic Kidney Disease, hyponatremia Requesting physician: Cesar Douglas - Chief Complaint CKD, hyponatremia - History of Present Illness Mr. King is an 86 year old male with history of CKD stage 4, CHF, CAD, afib, hyperlipidemia, hypertension, PAD, and cirrhosis of the liver who presented with complaint of a fall today and leg weakness for the past 4 weeks. Also reports troubles urinating and so he has decreased his intake of fluids. Patient denies significant fluid intake/polydypsia. Patient has back pain and suprapubic tenderness on palpation. Patient denies worsened swelling. Patient denies fevers, sweats, nausea, vomiting, confusion, chest pain, shortness of breath, changes in bowels, or loss of sensation. CXR revealed no definite pleural effusion, no acute disease. RUQ ultrasound revealed large gallstones within the gallbladder with associated wall thickening, inconclusive for acute cholecystitis, and moderate ascites. Nephrology was consulted for Hyponatremia, sodium of 120 on arrival. Past Med Surg Social Fam HX - Past Medical History Medical history: atrial fibrillation, CHF, coronary artery disease, hyperlipidemia, hypertension, liver disease, myocardial infarction, peripheral artery disease, renal disease Psychiatric history: no psych history - Past Surgical History Surgical History: angioplasty/stent, carotid endarterectomy, coronary bypass ( CABG), pacemaker/AICD, vascular surgery, other, pacemaker - Social History Smoking Status: Never smoker Smokeless Tobacco Status: No Alcohol use: none Drug use: none - Family History Father Living Status: Hx Family Cardiac Disorders: Yes Hx Family Endocrine Disorder: Yes Medications and Allergies Atorvastatin [Lipitor] 40 mg PO HS 06/08/15 [History] Gabapentin [Neurontin] 600 mg PO HS 06/08/15 [History] Garlic 1,000 mg PO DAILY 06/08/15 [History] Loratadine [Claritin] 10 mg PO DAILY PRN 06/08/15 [History] Metoprolol [Lopressor] 50 mg PO BID 06/08/15 [History] Multivitamin [Flintstones] 1 each PO DAILY 06/08/15 [History] [place]-3S/Dha/Epa/Fish Oil [Fish Oil 1,200 mg Softgel] 1 each PO DAILY 06/08/15 [ History] Montelukast [Singulair] 10 mg PO HS 11/05/15 [History] Fluticasone Propionate Nasal [Flonase] 50 mcg NS DAILY 11/09/15 [History] Latanoprost 1 drop BOTH EYES HS 11/28/15 [History] Amlodipine Besylate 10 mg PO DAILY 06/12/16 [History] hydrOXYzine HCl [Hydroxyzine HCl] 25 mg PO Q8H PRN 06/12/16 [History] Ferrous Sulfate 325 mg PO BID #60 tablet 07/30/16 [Rx] Furosemide [Lasix] 80 mg PO BID 07/31/16 [History] Potassium Chloride 10 meq PO BIDWM #20 tab.er.prt 08/06/16 [Rx] ALPRAZolam [Xanax 0.5 MG Tablet] 0.5 mg PO BID PRN 10/12/16 [History] Calcium Carbonate/Vitamin D3 [Calcium 600 + Vit D Tablet] 1 each PO TID [History] Ipratropium/Albuterol Neb [Duoneb] 3 ml IH Q6H PRN 10/12/16 [History] metOLazone [Zaroxolyn] 2.5 mg PO BID PRN 10/12/16 [History] Isosorbide MONOnitrate (24 HR) [Imdur] 60 mg PO DAILY 12/03/16 [History] Lactulose 20 gm PO BID 12/03/16 [History] Lisinopril [Zestril] 5 mg PO DAILY 12/03/16 [History] Allergies clopidogrel [From Plavix] Allergy (Verified 12/03/16 19:46) Itching Cortisone Allergy (Verified 12/03/16 19:46) Joint Pain Review of Systems Constitutional: weakness, no fever(s), no headache(s), no malaise, no weight gain Nose, mouth and throat: as per HPI, no dry mouth, no headache(s), no neck pain Cardiovascular: as per HPI, edema, leg edema, pedal edema, no chest pain, no dyspnea, no lightheadedness Respiratory: as per HPI, no dyspnea Gastrointestinal: as per HPI, abdominal pain, no constipation, no dysphagia, no nausea, no vomiting Genitourinary Male: as per HPI, change in urinary stream, urinary hesitancy Musculoskeletal: as per HPI Integumentary: as per HPI, swelling, no rash, no sores Neurological: as per HPI Endocrine: no polydipsia, no polyphagia, no polyuria Exam - Vital Signs Vital signs: Initial Vital Signs Temp Pulse Resp BP Pulse Ox 98.9 F 74 16 114/62 97 12/03/16 19:43 12/03/16 19:43 12/03/16 19:43 12/03/16 19:43 12/03/16 19:43 Vital Signs - Last 8 Hours Temp Pulse Resp BP Pulse Ox 12/04/16 10:25 97.6 F 63 16 111/54 98 12/04/16 10:10 96 12/04/16 06:29 97.4 F L 72 16 131/66 96 Intake and Output 12/03/16 12/04/16 12/04/16 23:59 07:59 15:59 Intake Total 360 / 360 Output Total 250 / 250 Balance 110 / 110 Intake: Oral 360 / 360 Output: Urine 250 / 250 Other: Meal Breakfast Percent of Meal Consumed 100% # Voids 1 - General Appearance General appearance: well-developed, well-nourished, appears started age, chronically ill EENT: mucous membranes moist, hearing aids present Neck: JVD (External jugular, no IJ finding), no thyromegaly, supple Respiratory: clear Cardiology: edema (Left lower ext > Right lower ext), regular rate, regular rhythm, normal S1, normal S2 Additional Comments: systolic murmur, occasional PVC Gastrointestinal: normoactive bowel sounds, tenderness (suprapubic), no guarding , distended (mildly) Integumentary: no rash, warm and dry Neurologic: no focal deficit, no asterixis, alert and oriented x3, CN 3-12 intact Musculoskeletal: no deformities, no erythema, no cyanosis, no clubbing Additional Comments: Left lower ext edema 1+ pitting > right lower extremity edema Psychiatric: mood/affect appropriate, cooperative Results - Lab Results 12/04/16 06:04 12/04/16 06:04 Most recent lab results Calcium 8.8 mg/dL (8.6-10.8) 12/04/16 06:04 Phosphorus 4.4 mg/dL (2.3-4.7) 12/04/16 06:04 Magnesium 2.2 mg/dL (1.6-2.6) 12/04/16 06:04 Urine Sodium 65.0 mEq/L 12/04/16 10:00 Consult Discharge Plan - Plan Referrals: Roberta Berrios MD [Primary Care Provider] -
[2016-12-04 12:47] LABS: Calcium 8.6 mg/dL (8.6-10.8); Potassium 3.5 mEq/L (3.5-4.5)
--- NOTE | 2016-12-04 18:43 | Electrocardiograph Report ---
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
[2016-12-04] MEDS: Gabapentin 300 MG CAPSULE PO SCH (20:54)
[2016-12-04] MEDS: Latanoprost 2.5 ML BOTTLE BOTH EYES SCH (20:59)
[2016-12-05 00:10] LABS: Calcium 8.5 mg/dL (8.6-10.8); Potassium 3.7 mEq/L (3.5-4.5)
[2016-12-05 07:17] LABS: Calcium 8.6 mg/dL (8.6-10.8); Potassium 3.4 mEq/L (3.5-4.5)
[2016-12-05] MEDS: amLODIPine 5 MG TABLET PO SCH (11:23)
[2016-12-05] MEDS: Isosorbide MONOnitrate (24 HR) 60 MG TAB.ER.24H PO SCH (11:23)
[2016-12-05] MEDS: Lactulose Oral Soln 20 GM/30 ML UDC PO SCH ×2 (11:23→21:11)
[2016-12-05] MEDS: Multivit/Ca/Min/Fe/FA 1 TAB TABLET PO SCH (11:24)
[2016-12-05] MEDS: Calcium 600 + Vit D PO SCH ×3 (11:27→21:14)
[2016-12-05] MEDS: Fluticasone Propionate Nasal 50 MCG/SPRAY BOTTLE NS SCH (11:28)
[2016-12-05] MEDS ORDERED: Furosemide 40 MG/4 ML VIAL IVP ONE (15:59)
--- NOTE | 2016-12-05 16:05 | Nephrology Progress Note ---
Date of Encounter: 12/05/16 Time of Encounter: 16:03 - Assessment and Plan (1) Hyponatremia Current Visit: Yes Status: Acute Sodium seems stable. Will trial saline and furosemide. Monitor sodium closely. (2) Anemia Current Visit: Yes Status: Acute Monitor hemoglobin and transfuse as needed. Qualifiers: Anemia type: unspecified type Qualified Code(s): D64.9 - Anemia, unspecified (3) CKD (chronic kidney disease) stage 4, GFR 15-29 ml/min Current Visit: Yes Status: Acute Monitor creatinine. No need for dialysis at this time. (4) Weakness Current Visit: Yes Status: Acute Patient working with PT. Subjective Principal diagnosis: Hyponatremia Interval history: Patient was seen working with PT in the hallway. He has no new complaint. Still complains about leg swelling . Review of systems is limited, but seems stable. Objective - Vital Signs Vital signs: Vital Signs Temp Pulse Resp BP Pulse Ox 12/05/16 15:16 97.9 F 69 16 120/63 96 12/05/16 11:03 97.5 F L 68 16 118/62 97 12/05/16 07:10 97.8 F 68 16 118/61 95 12/05/16 02:46 97.6 F 68 15 103/55 96 12/04/16 22:42 97.5 F L 67 15 105/55 98 12/04/16 20:41 98 12/04/16 18:45 97.6 F 65 18 111/57 98 Intake and Output 12/05/16 12/05/16 12/05/16 07:59 15:59 23:59 Intake Total 480 / 480 Balance 480 / 480 Intake: Oral 480 / 480 Other: Meal Breakfast Percent of Meal Consumed 100% # Voids 1 # Bowel Movements 1 Weight 80.739 kg Patient Weight 12/05/16 23:59 Weight 80.739 kg - General Appearance General appearance: Present: well-developed, well-nourished EENT: Present: ATNC Neck: Present: supple Respiratory: Present: clear Cardiology: Present: edema, regular rate, regular rhythm Gastrointestinal: Present: no tenderness Psychiatric: Present: mood/affect appropriate - Lab 12/04/16 06:04 12/05/16 05:57 Most recent lab results Calcium 8.6 mg/dL (8.6-10.8) 12/05/16 05:57 Phosphorus 4.4 mg/dL (2.3-4.7) 12/04/16 06:04 Magnesium 2.2 mg/dL (1.6-2.6) 12/04/16 06:04 Urine Sodium 65.0 mEq/L 12/04/16 10:00 Consult Discharge Plan - Plan Referrals: Paola Rushing, DEPARTMENT STORE GENERAL MANAGER [Advanced Practice Nurse] - 12/16/16 2:00 pm
--- NOTE | 2016-12-05 16:54 | Internal Med Progress Note ---
Date of Encounter: 12/05/16 Time of Encounter: 16:00 - Assessment and plan (1) Hyponatremia Current Visit: Yes Status: Acute Assessment and plan: Slowly improving, we will continue fluid restricted diet. Cortisol levels normal. Diuretics being held. Fluid restricted diet 1.5 L per day. Patient is alert and able to answer questions appropriately however he repeats the same questions. Spoke to his home care nurse who states this is his baseline and states that every time he gets admitted to the hospital that he becomes confused. Chest x-ray negative. Tolerating a regular diet. OT and PT have evaluated him and have recommended home health. Sodium 121 at this time, needs to be 127 prior to discharge. ITS Impressions Chest X-Ray 12/03/16 21:22 IMPRESSION: No acute disease. D/ / Herrera Prabhakar MD / Herrera Prabhakar MD Interpreting Provider: Herrera Prabhakar MD Abdomen Ultrasound 12/04/16 08:00 IMPRESSION: Large gallstones within the gallbladder with associated gallbladder wall thickening. There is a negative sonographic Tatum sign. These changes are inconclusive for acute cholecystitis. Moderate ascites. D/ / 12/04/2016 09:04:31 Dedrick Braga MD / ofelia Interpreting Provider: Dedrick Braga MD (2) Weakness Current Visit: Yes Status: Acute (3) Encephalopathy Current Visit: No Status: Acute Assessment and plan: During my interaction with him, patient was able to answer questions appropriately but would continue to ask the same questions repeatedly. His bedside nurse spoke to his home care nurse named Cee Lopez who states that the patient gets like this when he is admitted and states that every time he is in the hospital setting, he becomes confused and repeats questions. No Signs of an infection at this time. (4) Elevated troponin Current Visit: No Status: Chronic Assessment and plan: Acute on chronic. Patient denies chest pain. Suspect demand ischemia secondary to renal failure. (5) CKD (chronic kidney disease) stage 4, GFR 15-29 ml/min Current Visit: Yes Status: Chronic Assessment and plan: His renal functioning is currently at the high end of his normal. Nephrology on board. (6) Anemia Current Visit: Yes Status: Chronic Assessment and plan: Mild, chronic, currently at the high end of his normal, no signs of active bleeding. Qualifiers: Anemia type: unspecified type Qualified Code(s): D64.9 - Anemia, unspecified (7) Congestive heart failure (CHF) Current Visit: Yes Status: Chronic Assessment and plan: Patient had an echocardiogram in July that revealed an ejection fraction of 35% with moderate to severe TR, moderate MR, mild AR. On examination, patient with 1-2+ pitting edema bilaterally. Holding his diuretics at this time secondary to hyponatremia. Continue fluid restricted diet of 1.5 L per day. (8) PAD (peripheral artery disease) Current Visit: Yes Status: Chronic (9) CAD (coronary artery disease) Current Visit: No Status: Chronic Assessment and plan: Patient denies chest pain. Qualifiers: Coronary Disease-Associated Artery/Lesion type: bypass graft [place] vs. transplanted heart: [place] heart Associated angina: with stable angina Qualified Code(s): I25.708 - Atherosclerosis of coronary artery bypass graft(s) , unspecified, with other forms of angina pectoris (10) Atrial fibrillation, permanent Current Visit: Yes Status: Chronic Assessment and plan: Rate controlled. Not on anticoagulation therapy. (11) BPH (benign prostatic hypertrophy) with urinary retention Current Visit: No Status: Chronic Assessment and plan: Urinalysis negative for signs of infection. Continue strict I's and O's. Bladder scan as needed. (12) DVT prophylaxis Current Visit: No Status: Acute Assessment and plan: IPCs ordered (13) HTN (hypertension) Current Visit: Yes Status: Chronic Assessment and plan: Controlled. At home, patient is on metoprolol 50 mg twice a day, lisinopril 5 mg daily, Imdur 60 mg daily, furosemide, amlodipine 10 mg daily. Holding his furosemide at this time. We will trend. Qualifiers: Hypertension type: essential hypertension Qualified Code(s): I10 - Essential (primary) hypertension (14) Hypokalemia Current Visit: No Status: Acute Assessment and plan: Mild, we will trend (15) Cirrhosis Current Visit: Yes Status: Chronic Assessment and plan: LFTs consistent with his baseline. Mild alkaline phosphatase elevation is consistent with his baseline. Patient denies abdominal pain. Abdominal ultrasound revealing gallstones with gallbladder wall thickening however physical examination not consistent with acute cholecystitis at this time. Abdomen is soft and nontender but is distended. We will continue to monitor. Patient tolerating a regular diet. Abdomen Ultrasound 12/04/16 08:00 IMPRESSION: Large gallstones within the gallbladder with associated gallbladder wall thickening. There is a negative sonographic Tatum sign. These changes are inconclusive for acute cholecystitis. Moderate ascites. D/ / 12/04/2016 09:04:31 Dedrick Braga MD / ofelia Interpreting Provider: Dedrick Braga MD Qualifiers: Hepatic cirrhosis type: unspecified hepatic cirrhosis Ascites presence: with ascites Qualified Code(s): K74.60 - Unspecified cirrhosis of liver - Subjective Interval history: Patient seen and examined. On examination, patient resting supine in bed. Patient stating he is freezing and was given blankets. He denies pain or shortness of breath at this time. Patient was noted to be repeating the same questions over and over again, unclear whether or not he has a history of dementia, but his nurse spoke to his home care nurse Cee Lopez stated that he only gets confused when he is admitted in the hospital. - Constitutional Vitals: Temp Pulse Resp BP Pulse Ox 97.9 F 69 16 120/63 96 12/05/16 15:16 12/05/16 15:16 12/05/16 15:16 12/05/16 15:16 12/05/16 15:16 General appearance: Present: A&O X 2, pleasant, no acute distress, answers questions appropriately (but repeats questions) - Head Head exam: Present: atraumatic, normocephalic - Eye Eye exam: Present: PERRL, conjuntiva pink, sclera anicteric Pupils: Present: PERRL - Neck Neck exam general surgery: Present: supple, trachea midline. Absent: lymphadenopathy - Respiratory Respiratory exam: Present: CTAB. Absent: accessory muscle use, rales, rhonchi, wheezes - Cardiovascular Cardiovascular exam: Present: RRR, +S1, +S2. Absent: diastolic murmur, gallop, rubs, systolic murmur - GI/Abdominal GI/Abdominal exam: Present: normal bowel sounds, soft, tenderness, no peritoneal signs. Absent: distended - Extremities Exam Extremities exam: Present: warm, radial pulses palpable and symetrical. Absent : calf tenderness, cyanotic, pedal edema - Neurological Exam Neurological exam: Present: alert, CN II-XII intact, no focal deficits, strengths equal and symetr throughout. Absent: pronater drift, facial droop, speech deficit - Skin Skin exam: Present: dry, intact, pallor, warm Internal Medicine: Result - Labs CBC & Chem 7: 12/04/16 06:04 12/05/16 05:57 Labs: BMP 12/04/16 12/05/16 23:50 05:57 Sodium 121 L 121 L Potassium 3.7 3.4 L Chloride 86 L 85 L Carbon Dioxide 25 25 BUN 83 H 84 H Creatinine 2.27 H 2.23 H Glucose 112 H 97 Calcium 8.5 L 8.6 - ABG Interpretation ABG results: PT/INR, D-dimer PT 14.4 Seconds (9.4-12.1) H 12/03/16 21:40 Consult Discharge Plan - Plan Referrals: Paola Rushing, ONCOLOGY TRANSPLANT NETWORK MANAGER [Advanced Practice Nurse] - 12/16/16 2:00 pm
[2016-12-05] MEDS ORDERED: 0.9 % Sodium Chloride 1,000 ML ONE (18:11)
[2016-12-05] MEDS: 0.9 % Sodium Chloride 500 ML IVC SCH (18:12)
[2016-12-05] MEDS: Gabapentin 300 MG CAPSULE PO SCH (21:09)
[2016-12-05] MEDS: Latanoprost 2.5 ML BOTTLE BOTH EYES SCH (21:12)
[2016-12-06 03:36] LABS: Basophils % 0.2 %; Eosinophils # 0.2 K/mcL (0.0-0.6); Eosinophils % 3.3 %; Hematocrit 26.9 % (37.5-50.1); Hemoglobin 9.4 g/dL (12.9-16.9); Immature Granulocytes % 0.5 % (0-4); Lymphocytes # 0.8 K/mcL (0.6-4.6); Lymphocytes % 13.2 %; Mean Corpuscular HGB Conc 34.9 g/dL (31.6-35.5); Mean Corpuscular Hemoglobin 31.4 pg (28.0-33.3); Mean Platelet Volume 11.2 fL (9.4-12.4); Monocytes # 0.4 K/mcL (0.0-1.3); Monocytes % 6.8 %; Neutrophils # 4.8 K/mcL (1.6-8.9); Platelet Count 125 K/mcL (140-400); Red Blood Count 2.99 M/mcL (4.19-5.50); Red Cell Distribution Width 13.5 % (11.5-14.5)
[2016-12-06 03:52] LABS: Calcium 8.5 mg/dL (8.6-10.8); Potassium 3.5 mEq/L (3.5-4.5)
[2016-12-06] MEDS: 0.9 % Sodium Chloride 1,000 ML IV SCH ×3 (06:59→20:17)
[2016-12-06] MEDS: Calcium 600 + Vit D PO SCH ×3 (07:46→20:17)
[2016-12-06] MEDS: Lactulose Oral Soln 20 GM/30 ML UDC PO SCH ×2 (08:00→20:16)
[2016-12-06] MEDS: Multivit/Ca/Min/Fe/FA 1 TAB TABLET PO SCH (08:01)
[2016-12-06] MEDS: Isosorbide MONOnitrate (24 HR) 60 MG TAB.ER.24H PO SCH (08:01)
[2016-12-06] MEDS: amLODIPine 5 MG TABLET PO SCH (08:01)
[2016-12-06] MEDS: Fluticasone Propionate Nasal 50 MCG/SPRAY BOTTLE NS SCH ×2 (08:02→08:03)
[2016-12-06] MEDS ORDERED: Furosemide 40 MG/4 ML VIAL IVP ONE (10:09)
--- NOTE | 2016-12-06 11:40 | Nephrology Progress Note ---
Date of Encounter: 12/06/16 Time of Encounter: 11:38 - Assessment and Plan (1) Hyponatremia Current Visit: Yes Status: Acute Sodium seems stable. Will trial saline and furosemide. Monitor sodium closely. (2) Anemia Current Visit: Yes Status: Chronic Monitor hemoglobin and transfuse as needed. Qualifiers: Anemia type: unspecified type Qualified Code(s): D64.9 - Anemia, unspecified (3) CKD (chronic kidney disease) stage 4, GFR 15-29 ml/min Current Visit: Yes Status: Acute Monitor creatinine. No need for dialysis at this time. (4) Weakness Current Visit: Yes Status: Acute Patient working with PT. Subjective Principal diagnosis: Hyponatremia Interval history: Patient was asleep in a chair. Comfortable. Objective - Vital Signs Vital signs: Vital Signs Temp Pulse Resp BP Pulse Ox 12/06/16 07:40 97.9 F 58 16 101/61 96 12/06/16 05:01 97.8 F 67 16 115/51 96 12/05/16 23:26 98.0 F 68 16 109/50 96 12/05/16 18:59 97.8 F 66 16 107/53 98 12/05/16 15:16 97.9 F 69 16 120/63 96 Intake and Output 12/05/16 12/06/16 12/06/16 23:59 07:59 15:59 Intake Total 120 / 120 200 / 200 360 / 360 Balance 120 / 120 200 / 200 360 / 360 Intake: Oral 120 / 120 200 / 200 360 / 360 Other: Meal Dinner Breakfast Percent of Meal Consumed 100% 100% # Voids 1 1 Weight 83.688 kg Patient Weight 12/06/16 23:59 Weight 83.688 kg - General Appearance General appearance: Present: well-developed, well-nourished EENT: Present: ATNC Neck: Present: supple Additional Comments: respirations are unlabored. Cardiology: Present: regular rate Integumentary: Present: warm and dry - Lab 12/06/16 02:39 12/06/16 09:36 Most recent lab results Calcium 8.5 mg/dL (8.6-10.8) L 12/06/16 02:39 Phosphorus 4.4 mg/dL (2.3-4.7) 12/04/16 06:04 Magnesium 2.2 mg/dL (1.6-2.6) 12/04/16 06:04 Urine Sodium 65.0 mEq/L 12/04/16 10:00 Consult Discharge Plan - Plan Referrals: Paola Rushing, VICTORINA [Advanced Practice Nurse] - 12/16/16 2:00 pm
[2016-12-06] MEDS: 0.9 % Sodium Chloride 500 ML IVC SCH (14:11)
[2016-12-06] MEDS: 0.9 % Sodium Chloride 1,000 ML IVC SCH (14:12)
--- NOTE | 2016-12-06 18:35 | Internal Med Progress Note ---
Date of Encounter: 12/06/16 Time of Encounter: 16:00 - Assessment and plan (1) CKD (chronic kidney disease) stage 4, GFR 15-29 ml/min Current Visit: Yes Status: Chronic Assessment and plan: His renal functioning is currently at the high end of his normal. I appreciate nephrology recommendations. We will avoid nephrotoxins. Monitor BUN and creatinine. (2) PAD (peripheral artery disease) Current Visit: Yes Status: Chronic (3) CAD (coronary artery disease) Current Visit: No Status: Chronic Assessment and plan: He has multiple advanced end-stage life limiting chronic comorbidities including CAD, CHF and COPD. He would benefit from hospice and would likely be hospice eligible. I will consult palliative care. Qualifiers: Coronary Disease-Associated Artery/Lesion type: bypass graft [place] vs. transplanted heart: [place] heart Associated angina: with stable angina Qualified Code(s): I25.708 - Atherosclerosis of coronary artery bypass graft(s) , unspecified, with other forms of angina pectoris (4) DVT prophylaxis Current Visit: No Status: Acute Assessment and plan: IPC bilaterally. (5) Congestive heart failure Current Visit: No Status: Chronic Assessment and plan: End-of-life discussion with palliative care. Continue with symptom management and fluid management with IV Lasix. Qualifiers: Congestive heart failure type: combined Congestive heart failure chronicity : chronic Qualified Code(s): I50.42 - Chronic combined systolic (congestive) and diastolic (congestive) heart failure (6) Hyponatremia Current Visit: No Status: Chronic - Subjective Interval history: Patient reports generalized weakness, no chest pain or shortness of breath. History is unreliable due to mental confusion secondary to mild dementia. - Constitutional Vitals: Temp Pulse Resp BP Pulse Ox 97.4 F L 67 16 106/56 97 12/06/16 15:29 12/06/16 15:29 12/06/16 15:29 12/06/16 15:29 12/06/16 15:29 General appearance: Present: A&O X 2, pleasant, no acute distress, answers questions appropriately (but repeats questions) - Respiratory Respiratory exam: Present: CTAB. Absent: accessory muscle use, rales, rhonchi, wheezes - Cardiovascular Cardiovascular exam: Present: RRR, +S1, +S2. Absent: diastolic murmur, gallop, rubs, systolic murmur - GI/Abdominal GI/Abdominal exam: Present: normal bowel sounds, soft, no peritoneal signs. Absent: distended, tenderness - Extremities Exam Extremities exam: Present: warm, radial pulses palpable and symetrical. Absent : calf tenderness, cyanotic, pedal edema - Skin Skin exam: Present: dry, intact Internal Medicine: Result - Labs CBC & Chem 7: 12/06/16 02:39 12/06/16 09:36 Labs: Short CBC 12/06/16 Range/Units 02:39 WBC 6.3 (4.3-11.1) K/mcL Hgb 9.4 L (12.9-16.9) g/dL Hct 26.9 L (37.5-50.1) % Plt Count 125 L (140-400) K/mcL Neutrophils # 4.8 (1.6-8.9) K/mcL BMP 12/05/16 12/06/16 12/06/16 21:55 02:39 09:36 Sodium 122 L 124 L 126 L Potassium 3.5 Chloride 90 L Carbon Dioxide 23 BUN 81 H Creatinine 2.31 H Glucose 93 Calcium 8.5 L - ABG Interpretation ABG results: PT/INR, D-dimer PT 14.4 Seconds (9.4-12.1) H 12/03/16 21:40 Consult Discharge Plan - Plan Referrals: Paola Rushing, VICTORINA [Advanced Practice Nurse] - 12/16/16 2:00 pm
[2016-12-06] MEDS: Gabapentin 300 MG CAPSULE PO SCH (20:16)
[2016-12-06] MEDS: Latanoprost 2.5 ML BOTTLE BOTH EYES SCH (20:20)
[2016-12-07] MEDS: Acetaminophen 325 MG TABLET PO PRN (00:01)
[2016-12-07 03:55] LABS: Basophils % 0.2 %; Eosinophils # 0.2 K/mcL (0.0-0.6); Eosinophils % 3.6 %; Hematocrit 26.6 % (37.5-50.1); Hemoglobin 9.3 g/dL (12.9-16.9); Immature Granulocytes % 0.3 % (0-4); Lymphocytes # 0.8 K/mcL (0.6-4.6); Lymphocytes % 12.9 %; Mean Corpuscular Hemoglobin 32.1 pg (28.0-33.3); Mean Corpuscular Volume 91.7 fL (83.0-100.0); Mean Platelet Volume 11.2 fL (9.4-12.4); Monocytes # 0.5 K/mcL (0.0-1.3); Monocytes % 7.7 %; Neutrophils # 4.6 K/mcL (1.6-8.9); Platelet Count 109 K/mcL (140-400); Red Cell Distribution Width 13.7 % (11.5-14.5); Segmented Neutrophils % 75.3 %
[2016-12-07 04:12] LABS: Calcium 8.1 mg/dL (8.6-10.8); Potassium 3.6 mEq/L (3.5-4.5)
--- NOTE | 2016-12-07 08:48 | Internal Med Progress Note ---
Date of Encounter: 12/07/16 Time of Encounter: 08:47 - Assessment and plan (1) CKD (chronic kidney disease) stage 4, GFR 15-29 ml/min Current Visit: Yes Status: Chronic Assessment and plan: His renal functioning is currently at the high end of his normal. I appreciate nephrology recommendations. We will avoid nephrotoxins. Monitor BUN and creatinine. (2) PAD (peripheral artery disease) Current Visit: Yes Status: Chronic (3) CAD (coronary artery disease) Current Visit: No Status: Chronic Assessment and plan: He has multiple advanced end-stage life limiting chronic comorbidities including CAD, CHF and COPD. He would benefit from hospice and would likely be hospice eligible. I will consult palliative care. Qualifiers: Coronary Disease-Associated Artery/Lesion type: bypass graft [place] vs. transplanted heart: [place] heart Associated angina: with stable angina Qualified Code(s): I25.708 - Atherosclerosis of coronary artery bypass graft(s) , unspecified, with other forms of angina pectoris (4) DVT prophylaxis Current Visit: No Status: Acute Assessment and plan: IPC bilaterally. (5) Congestive heart failure Current Visit: No Status: Chronic Assessment and plan: End-of-life discussion with palliative care. Continue with symptom control and fluid management with IV Lasix. Qualifiers: Congestive heart failure type: combined Congestive heart failure chronicity : chronic Qualified Code(s): I50.42 - Chronic combined systolic (congestive) and diastolic (congestive) heart failure (6) Hyponatremia Current Visit: No Status: Chronic Assessment and plan: I discussed the case with nephrology. Sodium improving with IV Lasix and normal saline. We will continue with this. We will check sodium levels in the morning. Monitor mental status closely. - Subjective Interval history: 12/07/2016: Patient denies chest pain and sh shortness of breath today. He says that his left anklestay swollen most of the time. reports poor appetite. 12/06/2016:Patient reports generalized weakness, no chest pain or shortness of breath. History is unreliable due to mental confusion secondary to mild dementia. - Constitutional Vitals: Temp Pulse Resp BP Pulse Ox 97.5 F L 59 16 123/66 95 12/07/16 06:53 12/07/16 06:53 12/07/16 06:53 12/07/16 06:53 12/07/16 06:53 General appearance: Present: A&O X 2, pleasant, no acute distress, answers questions appropriately (but repeats questions) - Eye Eye exam: Present: PERRL, conjuntiva pink, sclera anicteric Pupils: Present: PERRL - Respiratory Respiratory exam: Present: CTAB. Absent: accessory muscle use, rales, rhonchi, wheezes - Cardiovascular Cardiovascular exam: Present: irregular rhythm, +S1, +S2. Absent: diastolic murmur, gallop, rubs, systolic murmur - GI/Abdominal GI/Abdominal exam: Present: normal bowel sounds, soft, no peritoneal signs. Absent: distended, tenderness - Extremities Exam Extremities exam: Present: pedal edema, warm, radial pulses palpable and symetrical. Absent: calf tenderness, cyanotic - Skin Skin exam: Present: dry, intact Internal Medicine: Result - Labs CBC & Chem 7: 12/07/16 03:29 12/07/16 03:29 Labs: Short CBC 12/07/16 Range/Units 03:29 WBC 6.1 (4.3-11.1) K/mcL Hgb 9.3 L (12.9-16.9) g/dL Hct 26.6 L (37.5-50.1) % Plt Count 109 L (140-400) K/mcL Neutrophils # 4.6 (1.6-8.9) K/mcL BMP 12/06/16 12/07/16 09:36 03:29 Sodium 126 L 127 L Potassium 3.6 Chloride 94 L Carbon Dioxide 24 BUN 76 H Creatinine 2.28 H Glucose 97 Calcium 8.1 L - ABG Interpretation ABG results: PT/INR, D-dimer PT 14.4 Seconds (9.4-12.1) H 12/03/16 21:40 Consult Discharge Plan - Plan Referrals: Paola Rushing, ACCOUNTING METHODS ANALYST [Advanced Practice Nurse] - 12/16/16 2:00 pm
[2016-12-07] MEDS: 0.9 % Sodium Chloride 1,000 ML IV SCH ×2 (09:00→10:36)
[2016-12-07] MEDS: Lactulose Oral Soln 20 GM/30 ML UDC PO SCH ×2 (09:03→20:01)
[2016-12-07] MEDS: Isosorbide MONOnitrate (24 HR) 60 MG TAB.ER.24H PO SCH (09:04)
[2016-12-07] MEDS: Multivit/Ca/Min/Fe/FA 1 TAB TABLET PO SCH (09:04)
[2016-12-07] MEDS: amLODIPine 5 MG TABLET PO SCH (09:04)
[2016-12-07] MEDS: Fluticasone Propionate Nasal 50 MCG/SPRAY BOTTLE NS SCH (09:04)
[2016-12-07] MEDS: Calcium 600 + Vit D PO SCH ×3 (09:04→20:02)
--- NOTE | 2016-12-07 13:03 | Palliative - Consult Note ---
Date of Encounter: 12/07/16 Time of Encounter: 13:00 - Assessment and Plan (1) Debility Current Visit: No Status: Acute Assessment and plan: Continue PT/OT, home health on discharge (2) Constipation Current Visit: Yes Status: Acute Assessment and plan: On Lactulose scheduled BID. Add suppository for PRN use. Qualifiers: Constipation type: unspecified constipation type Qualified Code(s): K59.00 - Constipation, unspecified (3) Counseling regarding advanced care planning and goals of care Current Visit: Yes Status: Acute Assessment and plan: Discussed goals of care with son Umesh, via telephone. He is out of town and not back until late this evening. Also spoke with pt home health nurse, Cee. Both Cee and Umesh state that pt has done "extremely well" since July once his medications were regulated. They state he has home care during the day but able to stay by himself at night. We discussed multiple comorbid conditions and his care going forward. Umesh does not desire any type of hospice care at this time, and wants to continue his home health. He does not think that his father is "ready" and states that he has actually done better over the past 5 months. States, "he only fell because his sodium was low". He also adamant he wants him to continue to return to hospital if needed for CHF exacerbations and for other ailments. I informed him that if his father should begin to decline and they would want to transition to hospice, his primary provider could make referral. He verbalized understanding. (4) CKD (chronic kidney disease) stage 4, GFR 15-29 ml/min Current Visit: Yes Status: Chronic (5) Fall Current Visit: Yes Status: Acute Qualifiers: Encounter type: initial encounter Qualified Code(s): W19.XXXA - Unspecified fall, initial encounter (6) Congestive heart failure (CHF) Current Visit: Yes Status: Chronic Qualifiers: Congestive heart failure type: combined Congestive heart failure chronicity : acute on chronic Qualified Code(s): I50.43 - Acute on chronic combined systolic (congestive) and diastolic (congestive) heart failure Palliative-CN HPI - Data of Consult Patient: known to practice within the last 3 years Consult date: 12/07/16 Requesting Physician: Phillip Camara MD Primary Care Provider: Roberta Berrios, - Consult Narrative History of present illness: Mr. King is a 86 year old male CC: Phillip Camara MD Past Med Surg Social Fam HX - Past Medical History Medical history: atrial fibrillation, CHF, coronary artery disease, hyperlipidemia, hypertension, myocardial infarction, peripheral artery disease, renal disease, other Psychiatric history: no psych history - Past Surgical History Surgical History: angioplasty/stent, carotid endarterectomy, coronary bypass ( CABG), pacemaker/AICD, vascular surgery, other, pacemaker - Social History Smoking Status: Never smoker Smokeless Tobacco Status: No Alcohol use: none Drug use: none - Family History Father Living Status: Hx Family Cardiac Disorders: Yes Hx Family Endocrine Disorder: Yes Medications and Allergies Atorvastatin [Lipitor] 40 mg PO HS 06/08/15 [History] Gabapentin [Neurontin] 600 mg PO HS 06/08/15 [History] Garlic 1,000 mg PO DAILY 06/08/15 [History] Loratadine [Claritin] 10 mg PO DAILY PRN 06/08/15 [History] Metoprolol [Lopressor] 50 mg PO BID 06/08/15 [History] Multivitamin [Flintstones] 1 each PO DAILY 06/08/15 [History] [place]-3S/Dha/Epa/Fish Oil [Fish Oil 1,200 mg Softgel] 1 each PO DAILY 06/08/15 [ History] Montelukast [Singulair] 10 mg PO HS 11/05/15 [History] Fluticasone Propionate Nasal [Flonase] 50 mcg NS DAILY 11/09/15 [History] Latanoprost 1 drop BOTH EYES HS 11/28/15 [History] Amlodipine Besylate 10 mg PO DAILY 06/12/16 [History] hydrOXYzine HCl [Hydroxyzine HCl] 25 mg PO Q8H PRN 06/12/16 [History] Ferrous Sulfate 325 mg PO BID #60 tablet 07/30/16 [Rx] Furosemide [Lasix] 80 mg PO BID 07/31/16 [History] Potassium Chloride 10 meq PO BIDWM #20 tab.er.prt 08/06/16 [Rx] ALPRAZolam [Xanax 0.5 MG Tablet] 0.5 mg PO BID PRN 10/12/16 [History] Calcium Carbonate/Vitamin D3 [Calcium 600 + Vit D Tablet] 1 each PO TID [History] Ipratropium/Albuterol Neb [Duoneb] 3 ml IH Q6H PRN 10/12/16 [History] metOLazone [Zaroxolyn] 2.5 mg PO BID PRN 10/12/16 [History] Isosorbide MONOnitrate (24 HR) [Imdur] 60 mg PO DAILY 12/03/16 [History] Lactulose 20 gm PO BID 12/03/16 [History] Lisinopril [Zestril] 5 mg PO DAILY 12/03/16 [History] Allergies clopidogrel [From Plavix] Allergy (Verified 12/03/16 19:46) Itching Cortisone Allergy (Verified 12/03/16 19:46) Joint Pain ROS unobtainable: due to mental status Palliative Care-Exam - Constitutional Vitals: Temp Pulse Resp BP Pulse Ox 97.4 F L 82 15 129/66 94 12/07/16 11:00 12/07/16 11:00 12/07/16 11:00 12/07/16 11:00 12/07/16 11:00 General appearance: Present: no acute distress - Head Head Exam: Present: normal inspection, normocephalic - Eye Eye exam: Present: normal appearance, PERRL - Respiratory Respiratory exam: Present: decreased breath sounds, CTAB - Cardiovascular Cardiovascular exam: Present: +S1, +S2, systolic murmur - GI/Abdominal Exam GI/Abdominal exam: Present: normal bowel sounds, soft - Extremities Exam Additional comments: 1+ edema bilateral lower extremities - Neurological Exam Neurological exam: Present: alert Additional comments: Oriented to name and place. Disoriented to time and situation. Follows simple commands. PAYNE - Skin Skin exam: Present: dry, pallor, warm Internal Medicine - CN: Reslt - Labs CBC & Chem 7: 12/07/16 03:29 12/07/16 03:29 Labs: Short CBC 12/07/16 Range/Units 03:29 WBC 6.1 (4.3-11.1) K/mcL Hgb 9.3 L (12.9-16.9) g/dL Hct 26.6 L (37.5-50.1) % Plt Count 109 L (140-400) K/mcL Neutrophils # 4.6 (1.6-8.9) K/mcL BMP 12/07/16 03:29 Sodium 127 L Potassium 3.6 Chloride 94 L Carbon Dioxide 24 BUN 76 H Creatinine 2.28 H Glucose 97 Calcium 8.1 L - ABG Interpretation ABG results: PT/INR, D-dimer PT 14.4 Seconds (9.4-12.1) H 12/03/16 21:40 Consult Discharge Plan - Plan Referrals: Paola Rushing, RESEARCH ANALYST [Advanced Practice Nurse] - 12/16/16 2:00 pm Palliative Quality Palliative Quality: Screen for Code Status: Yes, Screen for Goals of Care: Yes, Screen for Pain: Yes, If Pain Regimen Started, Initiate Bowel Regimen: Yes, Screen for Nausea/Vomitting: Yes
[2016-12-07] MEDS ORDERED: Bisacodyl 10 MG RECTAL SUPPOSITORY RC PRN (13:05)
[2016-12-07] MEDS ORDERED: Furosemide 40 MG/4 ML VIAL IVP ONE (14:09)
--- NOTE | 2016-12-07 14:12 | Nephrology Progress Note ---
Date of Encounter: 12/07/16 Time of Encounter: 14:10 - Assessment and Plan (1) Hyponatremia Current Visit: Yes Status: Acute Sodium improving with saline and furosemide. Will give furosemide today and continue to monitor. Monitor sodium closely. (2) Anemia Current Visit: Yes Status: Chronic Monitor hemoglobin and transfuse as needed. Qualifiers: Anemia type: unspecified type Qualified Code(s): D64.9 - Anemia, unspecified (3) CKD (chronic kidney disease) stage 4, GFR 15-29 ml/min Current Visit: Yes Status: Acute Monitor creatinine. No need for dialysis at this time. Creatinine stable. Avoid nephrotoxins. Adjust medications as needed. (4) Weakness Current Visit: Yes Status: Acute Patient working with PT. Subjective Principal diagnosis: Hyponatremia Interval history: Patient was asleep in bed. Comfortable. Objective - Vital Signs Vital signs: Vital Signs Temp Pulse Resp BP Pulse Ox 12/07/16 11:00 97.4 F L 82 15 129/66 94 12/07/16 06:53 97.5 F L 59 16 123/66 95 12/06/16 23:29 98.2 F 73 15 118/56 93 12/06/16 20:10 97.8 F 74 15 130/62 96 12/06/16 15:29 97.4 F L 67 16 106/56 97 Intake and Output 12/06/16 12/07/16 12/07/16 23:59 07:59 15:59 Intake Total 2200 / 2200 1240 / 1240 Output Total 250 / 250 Balance 1950 / 1950 1240 / 1240 Intake: IV Fluids 1000 / 1000 1000 / 1000 0.9 % Sodium Chloride 1, 1000 / 1000 1000 / 1000 000 ML @ 75 mls/hr IV . [id number] [facility] Rx#: [id number] Oral 1200 / 1200 240 / 240 Output: Urine 250 / 250 Other: Meal Dinner Lunch Percent of Meal Consumed 25% 10% Stool Size Moderate Small Stool Consistency soft # Voids 1 # Bowel Movements 1 1 Weight 85 kg Patient Weight 12/07/16 23:59 Weight 85 kg - General Appearance General appearance: Present: well-developed, well-nourished EENT: Present: ATNC Neck: Present: supple Respiratory: Present: clear Cardiology: Present: edema, regular rate, regular rhythm Gastrointestinal: Present: no tenderness Integumentary: Present: warm and dry Additional Comments: Asleep. Comfortable. - Lab 12/07/16 03:29 12/07/16 03:29 Most recent lab results Calcium 8.1 mg/dL (8.6-10.8) L 12/07/16 03:29 Phosphorus 4.4 mg/dL (2.3-4.7) 12/04/16 06:04 Magnesium 2.2 mg/dL (1.6-2.6) 12/04/16 06:04 Urine Sodium 65.0 mEq/L 12/04/16 10:00 Consult Discharge Plan - Plan Referrals: Paola Rushing, ASTROPHYSICS PROFESSOR [Advanced Practice Nurse] - 12/16/16 2:00 pm
[2016-12-07] MEDS: Latanoprost 2.5 ML BOTTLE BOTH EYES SCH (20:02)
[2016-12-07] MEDS: Gabapentin 300 MG CAPSULE PO SCH (20:02)
[2016-12-08 05:52] LABS: Basophils % 0.3 %; Eosinophils # 0.3 K/mcL (0.0-0.6); Eosinophils % 4.4 %; Hematocrit 29.6 % (37.5-50.1); Hemoglobin 10.2 g/dL (12.9-16.9); Immature Granulocytes % 0.3 % (0-4); Lymphocytes # 0.9 K/mcL (0.6-4.6); Lymphocytes % 13.8 %; Mean Corpuscular HGB Conc 34.5 g/dL (31.6-35.5); Mean Corpuscular Hemoglobin 31.9 pg (28.0-33.3); Mean Corpuscular Volume 92.5 fL (83.0-100.0); Mean Platelet Volume 11.5 fL (9.4-12.4); Monocytes # 0.6 K/mcL (0.0-1.3); Monocytes % 8.4 %; Neutrophils # 4.7 K/mcL (1.6-8.9); Platelet Count 108 K/mcL (140-400); Red Cell Distribution Width 13.9 % (11.5-14.5); Segmented Neutrophils % 72.8 %
[2016-12-08 06:12] LABS: Calcium 8.7 mg/dL (8.6-10.8); Potassium 3.5 mEq/L (3.5-4.5)
[2016-12-08] MEDS: Acetaminophen 325 MG TABLET PO PRN (08:44)
[2016-12-08] MEDS: Multivit/Ca/Min/Fe/FA 1 TAB TABLET PO SCH (08:45)
[2016-12-08] MEDS: amLODIPine 5 MG TABLET PO SCH (08:45)
[2016-12-08] MEDS: Lactulose Oral Soln 20 GM/30 ML UDC PO SCH ×2 (08:46→21:30)
[2016-12-08] MEDS: Fluticasone Propionate Nasal 50 MCG/SPRAY BOTTLE NS SCH (08:47)
[2016-12-08] MEDS: Calcium 600 + Vit D PO SCH ×3 (09:00→21:25)
[2016-12-08] MEDS ORDERED: Furosemide 40 MG/4 ML VIAL IVP ONE (09:38)
--- NOTE | 2016-12-08 11:58 | Palliative Progress Note ---
Date of Encounter: 12/08/16 Time of Encounter: 11:57 - Assessment and plan (1) Debility Current Visit: Yes Status: Acute Assessment and plan: Physical therapy and occupational therapy. Continue [facility] upon discharge. (2) Constipation by delayed colonic transit Current Visit: Yes Status: Acute Assessment and plan: BM yesterday. Continue with lactulose BID. (3) Goals of care, counseling/discussion Current Visit: No Status: Acute Assessment and plan: real estate services administrator following for discharge needs. Return to home health care upon discharge. Family declining hospice services at this time. (4) CKD (chronic kidney disease) stage 4, GFR 15-29 ml/min Current Visit: Yes Status: Chronic (5) Congestive heart failure (CHF) Current Visit: Yes Status: Chronic Qualifiers: Congestive heart failure type: combined Congestive heart failure chronicity : acute on chronic Qualified Code(s): I50.43 - Acute on chronic combined systolic (congestive) and diastolic (congestive) heart failure - Time Spent With Patient Total time spent is greater than 50% in coordination of care (as documented) at patient's floor/unit and/or counseling patient: - Subjective Interval history: Mr. King is lying in bed, resting with eyes closed. He responds to verbal stimuli and his only complaint is "I'm tired". - Constitutional Vitals: Abnormal lab results RBC 3.20 M/mcL (4.19-5.50) L 12/08/16 04:49 Hgb 10.2 g/dL (12.9-16.9) L 12/08/16 04:49 Hct 29.6 % (37.5-50.1) L 12/08/16 04:49 Plt Count 108 K/mcL (140-400) L 12/08/16 04:49 Platelet Estimate Decreased (Normal) L 12/03/16 21:40 PT 14.4 Seconds (9.4-12.1) H 12/03/16 21:40 Sodium 128 mEq/L (136-145) L 12/08/16 04:49 Chloride 95 mEq/L (98-109) L 12/08/16 04:49 BUN 67 mg/dL (8-26) H 12/08/16 04:49 Creatinine 2.02 mg/dL (0.72-1.25) H 12/08/16 04:49 Est GFR ( Amer) 38 (> 60) L 12/08/16 04:49 Est GFR (Non-Af Amer) 32 (> 60) L 12/08/16 04:49 BUN/Creatinine Ratio 33 (6-26) H 12/08/16 04:49 AST 39 Units/L (5-34) H 12/03/16 21:40 Alkaline Phosphatase 144 Units/L (38-126) H 12/03/16 21:40 Troponin I 0.06 ng/mL (0-0.03) H* 12/03/16 21:40 B-Natriuretic Peptide 2111 pg/mL (0-100) H 12/03/16 21:40 Albumin 3.2 g/dL (3.5-5.0) L 12/03/16 21:40 Globulin 5.0 g/dL (2.4-3.5) H 12/03/16 21:40 Albumin/Globulin Ratio 0.6 (1.1-2.2) L 12/03/16 21:40 Ur Specific [place] 1.009 (1.010-1.025) L 12/03/16 21:50 Ur Leukocyte Esterase Trace (Negative) H 12/03/16 21:50 Urine Osmolality 272 mOsm/kg (300-1090) L 12/06/16 13:53 General appearance: Present: cooperative, no acute distress - ENT ENT exam: Present: mucous membranes moist - Respiratory Respiratory exam: Present: decreased breath sounds. Absent: accessory muscle use, respiratory distress - Cardiovascular Cardiovascular exam: Present: irregular rhythm, systolic murmur - GI/Abdominal GI/Abdominal exam: Present: soft. Absent: tenderness - Extremities Exam Extremities exam: Present: pedal edema (mild) - Neurological Exam Neurological exam: Present: alert, oriented X3, no focal deficits - Skin Skin exam: Present: dry, warm Palliative Quality Palliative Quality: Screen for Code Status: Yes, Screen for Goals of Care: Yes, Screen for Pain: Yes, If Pain Regimen Started, Initiate Bowel Regimen: Yes, Screen for Nausea/Vomitting: Yes - Labs CBC & Chem 7: 12/08/16 04:49 12/08/16 04:49 Labs: Laboratory Results - last 24 hr 12/08/16 12/08/16 04:49 04:49 WBC 6.5 RBC 3.20 L Hgb 10.2 L Hct 29.6 L MCV 92.5 MCH 31.9 MCHC 34.5 RDW 13.9 Plt Count 108 L MPV 11.5 Immature Gran % 0.3 Seg Neutrophils % 72.8 Lymphocytes % 13.8 Monocytes % 8.4 Eosinophils % 4.4 Basophils % 0.3 Neutrophils # 4.7 Lymphocytes # 0.9 Monocytes # 0.6 Eosinophils # 0.3 Basophils # 0.0 Sodium 128 L Potassium 3.5 Chloride 95 L Carbon Dioxide 22 BUN 67 H Creatinine 2.02 H Est GFR ( Amer) 38 L Est GFR (Non-Af Amer) 32 L BUN/Creatinine Ratio 33 H Glucose 89 Calculated Osmolality 285 Calcium 8.7 - ABG Interpretation ABG results: PT/INR, D-dimer PT 14.4 Seconds (9.4-12.1) H 12/03/16 21:40 Consult Discharge Plan - Plan Referrals: Paola Rushing, COSMETIC SALES ASSISTANT [Advanced Practice Nurse] - 12/18/16 2:00 pm
[2016-12-08] MEDS: ALPRAZolam 0.5 MG TABLET PO PRN ×2 (12:47→22:58)
[2016-12-08] MEDS: Isosorbide MONOnitrate (24 HR) 60 MG TAB.ER.24H PO SCH (12:47)
--- NOTE | 2016-12-08 17:05 | Nephrology Progress Note ---
Date of Encounter: 12/08/16 Time of Encounter: 17:04 - Assessment and Plan (1) Hyponatremia Current Visit: Yes Status: Acute Sodium improving with saline and furosemide. Will give furosemide today and continue to monitor. Monitor sodium closely. Sodium continues to slowly rise. (2) Anemia Current Visit: Yes Status: Chronic Monitor hemoglobin and transfuse as needed. Qualifiers: Anemia type: unspecified type Qualified Code(s): D64.9 - Anemia, unspecified (3) CKD (chronic kidney disease) stage 4, GFR 15-29 ml/min Current Visit: Yes Status: Acute Monitor creatinine. No need for dialysis at this time. Creatinine stable. Avoid nephrotoxins. Adjust medications as needed. (4) Weakness Current Visit: Yes Status: Acute Patient working with PT. Subjective Principal diagnosis: Hyponatremia Interval history: Patient was asleep in bed. Comfortable. Objective - Vital Signs Vital signs: Vital Signs Temp Pulse Resp BP Pulse Ox 12/08/16 15:04 98.0 F 71 17 114/63 96 12/08/16 11:19 97.7 F 67 15 122/64 96 12/08/16 06:50 97.8 F 17 63 129/53 94 12/08/16 03:19 97.9 F 66 15 104/55 96 12/07/16 23:41 98.0 F 60 15 111/63 93 12/07/16 19:02 97.4 F L 65 15 116/70 96 Intake and Output 12/08/16 12/08/16 12/08/16 07:59 15:59 23:59 Intake Total 200 / 200 180 / 180 Balance 200 / 200 180 / 180 Intake: Oral 200 / 200 180 / 180 Other: Meal Breakfast Percent of Meal Consumed 50% Stool Size Moderate Stool Consistency soft formed Stool Color Brown # Voids 1 Weight 86 kg Patient Weight 12/08/16 23:59 Weight 86 kg - General Appearance General appearance: Present: well-developed, well-nourished, chronically ill, frail EENT: Present: ATNC Neck: Present: supple Respiratory: Present: clear Cardiology: Present: edema, regular rate, regular rhythm Integumentary: Present: warm and dry - Lab 12/08/16 04:49 12/08/16 04:49 Most recent lab results Calcium 8.7 mg/dL (8.6-10.8) 12/08/16 04:49 Phosphorus 4.4 mg/dL (2.3-4.7) 12/04/16 06:04 Magnesium 2.2 mg/dL (1.6-2.6) 12/04/16 06:04 Urine Sodium 65.0 mEq/L 12/04/16 10:00 Consult Discharge Plan - Plan Referrals: Paola Rushing, CHIEF STEWARD/STEWARDESS [Advanced Practice Nurse] - 12/18/16 2:00 pm
--- NOTE | 2016-12-08 17:26 | Internal Med Progress Note ---
Date of Encounter: 12/08/16 Time of Encounter: 15:00 - Assessment and plan (1) CKD (chronic kidney disease) stage 4, GFR 15-29 ml/min Current Visit: Yes Status: Chronic Assessment and plan: His renal functioning is currently at the high end of his normal. I appreciate nephrology recommendations. We will avoid nephrotoxins. Monitor BUN and creatinine. (2) PAD (peripheral artery disease) Current Visit: Yes Status: Chronic (3) CAD (coronary artery disease) Current Visit: No Status: Chronic Assessment and plan: He has multiple advanced end-stage life limiting chronic comorbidities including CAD, CHF and COPD. He would benefit from hospice and would likely be hospice eligible. I will consult palliative care. Qualifiers: Coronary Disease-Associated Artery/Lesion type: bypass graft [place] vs. transplanted heart: [place] heart Associated angina: with stable angina Qualified Code(s): I25.708 - Atherosclerosis of coronary artery bypass graft(s) , unspecified, with other forms of angina pectoris (4) DVT prophylaxis Current Visit: No Status: Acute Assessment and plan: IPC bilaterally. (5) Congestive heart failure Current Visit: No Status: Chronic Assessment and plan: I appreciate input from palliative care service. Patient's POA continues to request aggressive medical management of the patient's medical condition. We will continue diuresis with Lasix while monitoring sodium levels. Continue with physical therapy and occupational therapy. Social work for home needs. The patient prefers to go home. Qualifiers: Congestive heart failure type: combined Congestive heart failure chronicity : chronic Qualified Code(s): I50.42 - Chronic combined systolic (congestive) and diastolic (congestive) heart failure (6) Hyponatremia Current Visit: No Status: Chronic Assessment and plan: 12/08/2016: Sodium improving with IV Lasix. We will continue with this. We will check sodium levels in the morning. Monitor mental status closely. - Subjective Interval history: 12/08/2016: Patient's mental status since improved over the last 2 days, he denies any worsening shortness of breath. He continues to have lower extremity swelling which is close to his baseline. He continues to have generalized weakness. 12/07/2016: Patient denies chest pain and sh shortness of breath today. He says that his left anklestay swollen most of the time. reports poor appetite. 12/06/2016:Patient reports generalized weakness, no chest pain or shortness of breath. History is unreliable due to mental confusion secondary to mild dementia. - Constitutional Vitals: Temp Pulse Resp BP Pulse Ox 98.0 F 71 17 114/63 96 12/08/16 15:04 12/08/16 15:04 12/08/16 15:04 12/08/16 15:04 12/08/16 15:04 General appearance: Present: A&O X 2, pleasant, no acute distress, answers questions appropriately (but repeats questions) - Eye Eye exam: Present: PERRL, conjuntiva pink, sclera anicteric Pupils: Present: PERRL - Respiratory Respiratory exam: Present: CTAB. Absent: accessory muscle use, rales, rhonchi, wheezes - Cardiovascular Cardiovascular exam: Present: irregular rhythm, RRR, +S1, +S2. Absent: diastolic murmur, gallop, rubs, systolic murmur - GI/Abdominal GI/Abdominal exam: Present: normal bowel sounds, soft, no peritoneal signs. Absent: distended, tenderness - Extremities Exam Extremities exam: Present: pedal edema, warm, radial pulses palpable and symetrical. Absent: calf tenderness, cyanotic - Skin Skin exam: Present: dry, intact Internal Medicine: Result - Labs CBC & Chem 7: 12/08/16 04:49 12/08/16 04:49 Labs: Short CBC 12/08/16 Range/Units 04:49 WBC 6.5 (4.3-11.1) K/mcL Hgb 10.2 L (12.9-16.9) g/dL Hct 29.6 L (37.5-50.1) % Plt Count 108 L (140-400) K/mcL Neutrophils # 4.7 (1.6-8.9) K/mcL BMP 12/08/16 04:49 Sodium 128 L Potassium 3.5 Chloride 95 L Carbon Dioxide 22 BUN 67 H Creatinine 2.02 H Glucose 89 Calcium 8.7 - ABG Interpretation ABG results: PT/INR, D-dimer PT 14.4 Seconds (9.4-12.1) H 12/03/16 21:40 Consult Discharge Plan - Plan Referrals: Paola Rushing, APPLE CHECKER [Advanced Practice Nurse] - 12/18/16 2:00 pm
[2016-12-08] MEDS: Gabapentin 300 MG CAPSULE PO SCH (21:30)
[2016-12-08] MEDS: Latanoprost 2.5 ML BOTTLE BOTH EYES SCH (21:31)
[2016-12-09 05:23] LABS: Basophils % 0.3 %; Eosinophils # 0.3 K/mcL (0.0-0.6); Eosinophils % 5.1 %; Hematocrit 27.1 % (37.5-50.1); Hemoglobin 9.3 g/dL (12.9-16.9); Immature Granulocytes % 0.3 % (0-4); Lymphocytes # 0.8 K/mcL (0.6-4.6); Lymphocytes % 13.1 %; Mean Corpuscular HGB Conc 34.3 g/dL (31.6-35.5); Mean Corpuscular Hemoglobin 31.6 pg (28.0-33.3); Mean Corpuscular Volume 92.2 fL (83.0-100.0); Mean Platelet Volume 11.2 fL (9.4-12.4); Monocytes # 0.6 K/mcL (0.0-1.3); Monocytes % 8.9 %; Neutrophils # 4.7 K/mcL (1.6-8.9); Platelet Count 109 K/mcL (140-400); Red Blood Count 2.94 M/mcL (4.19-5.50); Segmented Neutrophils % 72.3 %
[2016-12-09 05:43] LABS: Calcium 8.7 mg/dL (8.6-10.8); Potassium 3.6 mEq/L (3.5-4.5)
--- NOTE | 2016-12-09 09:45 | Nephrology Progress Note ---
Date of Encounter: 12/09/16 Time of Encounter: 09:43 - Assessment and Plan (1) Hyponatremia Current Visit: Yes Status: Acute Sodium stable. Will continue with furosemide. Recommend continuing with fluid restriction. Check sodium level in 5-7 days. He can follow up with Dr. Owen in 4-6 weeks with BMP the week prior to clinic visit. (2) Anemia Current Visit: Yes Status: Chronic Monitor hemoglobin and transfuse as needed. Qualifiers: Anemia type: unspecified type Qualified Code(s): D64.9 - Anemia, unspecified (3) CKD (chronic kidney disease) stage 4, GFR 15-29 ml/min Current Visit: Yes Status: Acute Monitor creatinine. No need for dialysis at this time. Creatinine stable. Avoid nephrotoxins. Adjust medications as needed. (4) Weakness Current Visit: Yes Status: Acute Patient working with PT. Subjective Principal diagnosis: Hyponatremia Interval history: Patient was sitting up in a chair. He anticipates going home today. He has no new complaint. ROS otherwise is stable or normal. Objective - Vital Signs Vital signs: Vital Signs Temp Pulse Resp BP Pulse Ox 12/09/16 07:00 99.1 F 66 15 113/66 96 12/08/16 23:24 97.9 F 69 14 114/55 96 12/08/16 20:03 97.7 F 69 12 120/70 98 12/08/16 15:04 98.0 F 71 17 114/63 96 12/08/16 11:19 97.7 F 67 15 122/64 96 Intake and Output 12/08/16 12/09/16 12/09/16 23:59 07:59 15:59 Intake Total 770 / 770 120 / 120 Output Total 400 / 400 Balance 370 / 370 120 / 120 Intake: Oral 770 / 770 120 / 120 Output: Urine 400 / 400 Other: Meal Dinner Breakfast Percent of Meal Consumed 100% 90% Stool Size Moderate Moderate Stool Consistency formed loose Stool Characteristics Normal for Patient Stool Color Brown Brown # Voids 1 # Bowel Movements 1 1 Weight 81 kg Patient Weight 12/09/16 23:59 Weight 81 kg - General Appearance General appearance: Present: well-developed, well-nourished EENT: Present: ATNC Neck: Present: supple Additional Comments: respirations are unlabored. Cardiology: Present: edema, regular rate Integumentary: Present: warm and dry Psychiatric: Present: mood/affect appropriate - Lab 12/09/16 04:51 12/09/16 04:51 Most recent lab results Calcium 8.7 mg/dL (8.6-10.8) 12/09/16 04:51 Phosphorus 4.4 mg/dL (2.3-4.7) 12/04/16 06:04 Magnesium 2.2 mg/dL (1.6-2.6) 12/04/16 06:04 Urine Sodium 65.0 mEq/L 12/04/16 10:00 Consult Discharge Plan - Plan Referrals: Paola Rushing, [employer]ENDER [Advanced Practice Nurse] - 12/18/16 2:00 pm
[2016-12-09] MEDS ORDERED: Furosemide 40 MG TABLET PO SCH (10:00)
[2016-12-09] MEDS: Isosorbide MONOnitrate (24 HR) 60 MG TAB.ER.24H PO SCH (10:06)
[2016-12-09] MEDS: Multivit/Ca/Min/Fe/FA 1 TAB TABLET PO SCH (10:06)
[2016-12-09] MEDS: amLODIPine 5 MG TABLET PO SCH (10:06)
[2016-12-09] MEDS: ALPRAZolam 0.5 MG TABLET PO PRN (10:06)
[2016-12-09] MEDS: Calcium 600 + Vit D PO SCH (10:07)
[2016-12-09] MEDS: Fluticasone Propionate Nasal 50 MCG/SPRAY BOTTLE NS SCH (10:07)
[2016-12-09] MEDS: Lactulose Oral Soln 20 GM/30 ML UDC PO SCH (10:09)
--- NOTE | 2016-12-09 10:54 | Discharge Summary ---
Date of Encounter: 12/09/16 Time of Encounter: 10:45 - Discharge Diagnosis (1) CKD (chronic kidney disease) stage 4, GFR 15-29 ml/min Priority: Secondary Status: Chronic (2) PAD (peripheral artery disease) Priority: Secondary Status: Chronic (3) CAD (coronary artery disease) Priority: Secondary Status: Chronic Qualifiers: Coronary Disease-Associated Artery/Lesion type: bypass graft [place] vs. transplanted heart: [place] heart Associated angina: with stable angina Qualified Code(s): I25.708 - Atherosclerosis of coronary artery bypass graft(s) , unspecified, with other forms of angina pectoris (4) DVT prophylaxis Priority: Secondary Status: Acute (5) Congestive heart failure Priority: Secondary Status: Chronic Qualifiers: Congestive heart failure type: combined Congestive heart failure chronicity : chronic Qualified Code(s): I50.42 - Chronic combined systolic (congestive) and diastolic (congestive) heart failure (6) Hyponatremia Priority: Primary Status: Chronic (7) Cirrhosis of liver with ascites Priority: Secondary Status: Chronic Qualifiers: Hepatic cirrhosis type: unspecified hepatic cirrhosis Qualified Code(s): K74.60 - Unspecified cirrhosis of liver - Discharge Medications Home Medications: Atorvastatin [Lipitor] 40 mg PO HS 06/08/15 [History] Gabapentin [Neurontin] 600 mg PO HS 06/08/15 [History] Garlic 1,000 mg PO DAILY 06/08/15 [History] Loratadine [Claritin] 10 mg PO DAILY PRN 06/08/15 [History] Metoprolol [Lopressor] 50 mg PO BID 06/08/15 [History] Multivitamin [Flintstones] 1 each PO DAILY 06/08/15 [History] [place]-3S/Dha/Epa/Fish Oil [Fish Oil 1,200 mg Softgel] 1 each PO DAILY 06/08/15 [ History] Montelukast [Singulair] 10 mg PO HS 11/05/15 [History] Fluticasone Propionate Nasal [Flonase] 50 mcg NS DAILY 11/09/15 [History] Latanoprost 1 drop BOTH EYES HS 11/28/15 [History] Amlodipine Besylate 10 mg PO DAILY 06/12/16 [History] hydrOXYzine HCl [Hydroxyzine HCl] 25 mg PO Q8H PRN 06/12/16 [History] Ferrous Sulfate 325 mg PO BID #60 tablet 01/11/17 [Rx] Potassium Chloride 10 meq PO BIDWM #20 tab.er.prt 08/06/16 [Rx] ALPRAZolam [Xanax 0.5 MG Tablet] 0.5 mg PO BID PRN 10/12/16 [History] Calcium Carbonate/Vitamin D3 [Calcium 600 + Vit D Tablet] 1 each PO TID [History] Ipratropium/Albuterol Neb [Duoneb] 3 ml IH Q6H PRN 10/12/16 [History] Isosorbide MONOnitrate (24 HR) [Imdur] 60 mg PO DAILY 12/03/16 [History] Lactulose 20 gm PO BID 12/03/16 [History] Lisinopril [Zestril] 5 mg PO DAILY 12/03/16 [History] Furosemide [Lasix] 80 mg PO DAILY #0 12/09/16 [Rx] metOLazone [Zaroxolyn] 2.5 mg PO DAILY PRN #0 12/09/16 [Rx] Allergies/Adverse Reactions: Allergies clopidogrel [From Plavix] Allergy (Verified 12/03/16 19:46) Itching Cortisone Allergy (Verified 12/03/16 19:46) Joint Pain Date of admission: 12/04/16 05:58 Primary care physician: Roberta Berrios, Consults: 12/04/16 10:01 Consult to Nephrology [CONS] Routine Consulting Provider: Kidney Cher/RHINA/MARLENI/MARYBETH Reason for Consult: please evaluate this patient presenting with hyponatremia and weakness. thank you Call Completed: Yes 12/04/16 18:39 Consult to Occupational Therapy [CONS] Routine Comment: Evaluate, develop and implement POC Reason for Consult: weakness 12/05/16 08:42 Consult to Riveting Machine Operator Tape Control [CONS] Routine Reason for SW Consult: here for weakness; OT PT pending 12/06/16 18:30 Consult to Palliative Care [CONS] Routine Comment: Consulting Provider: Palliative Care Cher Reason for Consult: Debilitation, advanced age, multiple chronic medical conditions. Call Completed: No - Patient Status Disposition: Home Health Service Condition: Fair Functional capacity at discharge: uses cane/walker Overall status at discharge: patient is progressing back to baseline - Discharge Instructions Follow Up With: Paola Rushing, G[employer] [Advanced Practice Nurse] - 12/18/16 2:00 pm Henrik Owen DO [Partnered Physician] - - Diet and Activity Activity: ambulate only with your walker, as per physical therapy Diet: low fat, low cholesterol, low salt diet (1400 mL daily fluid restriction) Hospital course: Mr. King is a 86 year old male with past medical history significant for coronary artery disease, CK D stage V, peripheral arterial disease, chronic diastolic heart failure, chronic anemia, chronic atrial fibrillation not on anticoagulation and liver cirrhosis who was brought to the hospital for generalized weakness. Workup done in the emergency department was pertinent for hyponatremia with a sodium of 120. It was noted from prior admissions that the patient has a low normal sodium baseline, however this was lower than his normal. He was admitted for symptomatic hyponatremia. Nephrology was consulted. They recommended stopping Lasix and metolazone and gentle IV fluid hydration. He received normal saline IV and his sodium improved. Due to congestive heart failure and liver cirrhosis causing chronic edema his Lasix was restarted. He sodium level continued to trend up and today is 128. He reports improvement in his generalized weakness. Denies chest pain and shortness of breath. He is getting close to his baseline and is medically stable for discharge home. I did recommend a short course of inpatient rehabilitation which I strongly believe would benefit the patient but the patient vehemently refused. He will be discharged home with home health. During this hospitalization metolazone was stopped and will be restarted only on as needed basis. He received treatment with Lasix 40 mg IV daily and this will be converted to 80 mg oral daily. He will be advised to follow fluid restriction of 1400 mL daily to prevent recurrence of hyponatremia and control the edema. He will have blood work done on Thursday, December 15 to check his sodium level. He will have a follow-up with nephrology in 4-6 weeks. - Time Spent with Patient Total time spent providing and/or coordinating discharge services: Greater than 30 minutes (I have spent 45 minutes coordinating this discharge) - Constitutional Vitals: Temp Pulse Resp BP Pulse Ox 99.1 F 66 15 113/66 96 12/09/16 07:00 12/09/16 07:00 12/09/16 07:00 12/09/16 07:00 12/09/16 07:00 General appearance: Present: A&O X 2, pleasant, no acute distress, answers questions appropriately (but repeats questions) - Respiratory Respiratory exam: Present: CTAB. Absent: accessory muscle use, rales, rhonchi, wheezes - Cardiovascular Cardiovascular exam: Present: irregular rhythm, +S1, +S2, systolic murmur. Absent: diastolic murmur, gallop, rubs - Extremities Exam Extremities exam: Present: pedal edema, warm, radial pulses palpable and symetrical. Absent: calf tenderness, cyanotic
--- NOTE | 2016-12-09 11:14 | Physician Discharge Referral ---
Home Health/Hosp Referral Info Transfer to: Home Health Provider in Charge Post Discharge: PCP - Diagnosis (1) CKD (chronic kidney disease) stage 4, GFR 15-29 ml/min Status: Chronic (2) PAD (peripheral artery disease) Status: Chronic (3) CAD (coronary artery disease) Status: Chronic (4) DVT prophylaxis Status: Acute (5) Congestive heart failure Status: Chronic (6) Hyponatremia Status: Chronic (7) Cirrhosis of liver with ascites Status: Chronic - Respiratory Orders Smoking Cessation: Smoking cessation has been advised. For more information, call the [place] Tobacco Quit Line at 6-992-KZGM-NOW. - Diet/Nutrition Diet/Nutrition Orders: No Added Salt (PRIMO), Cardiac (1400 mL daily fluid restriction) - Activity Activity Orders: Walker - Services Needed Following services are medically necessary services: Nursing, Home Health Aide, Physical Therapy, Occupational Therapy Home Care Orders: BMP to be drawn by home health on 12/15/2016 and result sent to PCP. - Transfer Medications Home Medications: Atorvastatin [Lipitor] 40 mg PO HS 06/08/15 [History] Gabapentin [Neurontin] 600 mg PO HS 06/08/15 [History] Garlic 1,000 mg PO DAILY 06/08/15 [History] Loratadine [Claritin] 10 mg PO DAILY PRN 06/08/15 [History] Metoprolol [Lopressor] 50 mg PO BID 06/08/15 [History] Multivitamin [Flintstones] 1 each PO DAILY 06/08/15 [History] [place]-3S/Dha/Epa/Fish Oil [Fish Oil 1,200 mg Softgel] 1 each PO DAILY 06/08/15 [ History] Montelukast [Singulair] 10 mg PO HS 11/05/15 [History] Fluticasone Propionate Nasal [Flonase] 50 mcg NS DAILY 11/09/15 [History] Latanoprost 1 drop BOTH EYES HS 11/28/15 [History] Amlodipine Besylate 10 mg PO DAILY 06/12/16 [History] hydrOXYzine HCl [Hydroxyzine HCl] 25 mg PO Q8H PRN 06/12/16 [History] Ferrous Sulfate 325 mg PO BID #60 tablet 07/30/16 [Rx] Potassium Chloride 10 meq PO BIDWM #20 tab.er.prt 08/06/16 [Rx] ALPRAZolam [Xanax 0.5 MG Tablet] 0.5 mg PO BID PRN 10/12/16 [History] Calcium Carbonate/Vitamin D3 [Calcium 600 + Vit D Tablet] 1 each PO TID [History] Ipratropium/Albuterol Neb [Duoneb] 3 ml IH Q6H PRN 10/12/16 [History] Isosorbide MONOnitrate (24 HR) [Imdur] 60 mg PO DAILY 12/03/16 [History] Lactulose 20 gm PO BID 12/03/16 [History] Lisinopril [Zestril] 5 mg PO DAILY 12/03/16 [History] Furosemide [Lasix] 80 mg PO DAILY #0 12/09/16 [Rx] metOLazone [Zaroxolyn] 2.5 mg PO DAILY PRN #0 12/09/16 [Rx] Allergies/Adverse Reactions: Allergies clopidogrel [From Plavix] Allergy (Verified 12/03/16 19:46) Itching Cortisone Allergy (Verified 12/03/16 19:46) Joint Pain Certification: Further, I certify that my clinical findings support that this patient is homebound (i.e. absences from home require considerable and taxing effort and are for medical reasons or mandaen services or infrequently or short duration when for other reasons) because: Homebound Reason: Patient requires assistance of a person or device to safely leave home, Leaving home requires considerable and taxing effort due to condition, Severity of cardiac or pulmonary status limits activity tolerance Attestation: My signature below is to certify that this patient is under my care and that I, or nurse practitioner, or a physician's assistant superintendent working with me, has a face-to -face encounter with this patient.
[2016-12-09 11:22] VITALS: BP 103/56
== END 2016-12-09 14:19 | disposition home health service (06) | DRG 640 ==
LOC: 3BNU 19:21 → EMEROO 19:21 → 3BNU 12-04 00:30 → SUATTDRO 12-04 05:58 → 3BNU 12-04 19:50
PROVIDERS: ADMIT Nurse Practitioner Family; ATTEND Internal Medicine

== ENCOUNTER 2017-01-13 10:16 | Observation (INO) ==
[2017-01-13] MEDS ORDERED: 0.9 % Sodium Chloride 500 ML IVC ONE (10:34)
[2017-01-13 10:35] LABS: Basophils % 0.2 %; Eosinophils # 0.2 K/mcL (0.0-0.6); Eosinophils % 3.1 %; Hematocrit 29.3 % (37.5-50.1); Hemoglobin 10.1 g/dL (12.9-16.9); Immature Granulocytes % 0.3 % (0-4); Lymphocytes # 0.8 K/mcL (0.6-4.6); Lymphocytes % 12.3 %; Mean Corpuscular HGB Conc 34.5 g/dL (31.6-35.5); Mean Corpuscular Hemoglobin 31.3 pg (28.0-33.3); Mean Corpuscular Volume 90.7 fL (83.0-100.0); Mean Platelet Volume 11.2 fL (9.4-12.4); Monocytes # 0.6 K/mcL (0.0-1.3); Monocytes % 9.5 %; Neutrophils # 4.9 K/mcL (1.6-8.9); Platelet Count 102 K/mcL (140-400); Red Blood Count 3.23 M/mcL (4.19-5.50); Red Cell Distribution Width 14.9 % (11.5-14.5); Segmented Neutrophils % 74.6 %
[2017-01-13 10:52] LABS: INR 1.3; Prothrombin Time 14.2 Seconds (9.4-12.1)
[2017-01-13 10:53] LABS: Albumin 3.3 g/dL (3.5-5.0); Albumin/Globulin Ratio 0.6 (1.1-2.2); Bilirubin,Direct 0.7 mg/dL (0.0-0.5); Bilirubin,Indirect 0.5 mg/dL (0.0-1.2); Bilirubin,Total 1.2 mg/dL (0.2-1.2); Calcium 9.3 mg/dL (8.6-10.8); Globulin 5.1 g/dL (2.4-3.5); Potassium 3.6 mEq/L (3.5-4.5); Total Protein 8.4 g/dL (6.0-8.3)
[2017-01-13 10:54] LABS: Activated Partial Thrombo Time 36.6 Seconds (26.0-36.0)
[2017-01-13 11:00] LABS: Magnesium 2.1 mg/dL (1.6-2.6)
--- NOTE | 2017-01-13 11:36 | Emergency Department Note ---
Disposition Clinical Impression: Hyponatremia, Generalized weakness Chronic kidney disease (CKD) Qualifiers: Chronic kidney disease stage: stage 4 (severe) Qualified Code(s): N18.4 - Chronic kidney disease, stage 4 (severe) Disposition: Admitted As Inpatient Referrals: Paola Rushing CNP [Primary Care Provider] - Forms: ED Satisfaction Letter Weakness HPI - General Chief complaint: ED Recheck/Abnormal Lab/Rx Stated complaint: possible low sodium Time Seen by Provider: 01/13/17 10:26 Source: patient Limitations: no limitations Nursing Notes Reviewed: Yes Vital Signs Reviewed: Yes - History of Present Illness HPI Narrative: She is a very pleasant 86-year-old male with complex medical history he is here for abnormal sodium. The patient states he was instructed by Dr. Lopez get her to come to the ER for admission for life-threatening hyponatremia. The patient states he feels like his normal state of health he states he has a little bit of increased abdominal swelling may be more fatigued than normal. He denies any other symptoms. Pain Scale: 3 Improves with: none Worsens with: none Associated symptoms: Denies: chest pain, confusion, dark stools - Related Data Home Medications Medication Instructions Recorded Confirmed Atorvastatin [Lipitor] 40 mg PO HS 06/08/15 12/04/16 Gabapentin [Neurontin] 600 mg PO HS 06/08/15 12/04/16 Garlic 1,000 mg PO DAILY 06/08/15 12/03/16 Loratadine [Claritin] 10 mg PO DAILY PRN 06/08/15 12/03/16 Metoprolol [Lopressor] 50 mg PO BID 06/08/15 12/04/16 Multivitamin [Flintstones] 1 each PO DAILY 06/08/15 12/03/16 [place]-3S/Dha/Epa/Fish Oil [Fish 1 each PO DAILY 06/08/15 12/03/16 Oil 1,200 mg Softgel] Montelukast [Singulair] 10 mg PO HS 11/05/15 12/04/16 Fluticasone Propionate Nasal 50 mcg NS DAILY 11/09/15 12/03/16 [Flonase] Latanoprost 1 drop BOTH EYES HS 11/28/15 12/04/16 Amlodipine Besylate 10 mg PO DAILY 06/12/16 12/03/16 hydrOXYzine HCl [Hydroxyzine HCl] 25 mg PO Q8H PRN 06/12/16 12/03/16 ALPRAZolam [Xanax 0.5 MG Tablet] 0.5 mg PO BID PRN 10/12/16 12/03/16 Calcium Carbonate/Vitamin D3 1 each PO TID 10/12/16 12/03/16 [Calcium 600 + Vit D Tablet] Ipratropium/Albuterol Neb [Duoneb] 3 ml IH Q6H PRN 10/12/16 12/03/16 Isosorbide MONOnitrate (24 HR) 60 mg PO DAILY 12/03/16 12/04/16 [Imdur] Lactulose 20 gm PO BID 12/03/16 12/04/16 Lisinopril [Zestril] 5 mg PO DAILY 12/03/16 12/04/16 Previous Rx's Medication Instructions Recorded Ferrous Sulfate 325 mg PO BID #60 tablet 07/30/16 Potassium Chloride 10 meq PO BIDWM #20 tab.er.prt 08/06/16 Furosemide [Lasix] 80 mg PO DAILY #0 12/09/16 metOLazone [Zaroxolyn] 2.5 mg PO DAILY PRN #0 12/09/16 Allergies Allergy/AdvReac Type Severity Reaction Status Date / Time clopidogrel [From Plavix] Allergy Itching Verified 12/03/16 19:46 Cortisone Allergy Joint Pain Verified 12/03/16 19:46 All systems ED: reviewed and negative except as stated. Constitutional: Reports: weakness. Denies: fever, chills Cardiovascular: Denies: chest pain Gastrointestinal: Denies: nausea, vomiting, diarrhea Past Medical History - Past Medical History Medical history: Reports: atrial fibrillation, CHF, coronary artery disease, hyperlipidemia, hypertension, myocardial infarction, peripheral artery disease, renal disease, other Surgical history: Reports: angioplasty/stent, carotid endarterectomy, coronary bypass (CABG), pacemaker/AICD, vascular surgery, other, pacemaker Psychiatric history: Reports: no psych history - Social History Smoking Status: Never smoker Smokeless Tobacco Status: No Alcohol use: Reports: none Drug use: Reports: none Physical Exam - General Limitations: no limitations General appearance: alert, in no apparent distress - Head Head exam: atraumatic, normocephalic, normal inspection - Eye Eye exam: Present: normal appearance, PERRL, EOMI - Neck Neck exam: Present: normal inspection, full ROM, trachea midline - Chest Chest inspection: Present: normal inspection, symmetric chest wall rise - Respiratory Respiratory exam: Present: normal lung sounds bilaterally - Cardiovascular Cardiovascular exam: Present: regular rate, normal rhythm, normal heart sounds - Abdominal Exam Abdominal exam: Present: soft, distention, normal bowel sounds. Absent: tenderness - Expanded Lower Extremity Exam Ankle exam: Present: other (2+ pitting edema) - Neurological Exam Neurological exam: Present: alert, oriented X3 - Psychiatric Psychiatric exam: Present: normal affect, normal mood - Skin Skin exam: Present: warm, dry, intact, normal color Course Vital Signs Temperature 97.9 F 01/13/17 10:19 Pulse Rate 71 01/13/17 10:19 Respiratory Rate 16 01/13/17 10:19 Blood Pressure 121/62 01/13/17 10:19 O2 Sat by Pulse Oximetry 99 01/13/17 10:19 Temperature 97.9 F 01/13/17 10:19 Pulse Rate 68 01/13/17 10:45 Respiratory Rate 16 01/13/17 10:45 Blood Pressure 117/59 01/13/17 10:45 O2 Sat by Pulse Oximetry 98 01/13/17 10:45 Oxygen Delivery Oxygen Delivery Room Air Weakness - MDM Narrative Medical decision making narrative: Spoke with Dr. Douglas nephrology he wants the patient admitted to medicine service no orders in the interim he states they will consult on the floor patient does not have any altered mental status no seizure history or activity. - Medical Records Medical records reviewed: Yes I reviewed the patient's medical records. - Lab Data Lab results reviewed: Yes I reviewed the patient's lab results. Result diagrams: 01/13/17 10:24 01/13/17 10:24 Lab Results 01/13/17 01/13/17 01/13/17 Range/Units 10:24 10:24 10:36 WBC 6.5 (4.3-11.1) K/mcL RBC 3.23 L (4.19-5.50) M/mcL Hgb 10.1 L (12.9-16.9) g/dL Hct 29.3 L (37.5-50.1) % MCV 90.7 (83.0-100.0) fL MCH 31.3 (28.0-33.3) pg MCHC 34.5 (31.6-35.5) g/dL RDW 14.9 H (11.5-14.5) % Plt Count 102 L (140-400) K/mcL MPV 11.2 (9.4-12.4) fL Immature Gran % 0.3 (0-4) % Seg Neutrophils % 74.6 % Lymphocytes % 12.3 % Monocytes % 9.5 % Eosinophils % 3.1 % Basophils % 0.2 % Neutrophils # 4.9 (1.6-8.9) K/mcL Lymphocytes # 0.8 (0.6-4.6) K/mcL Monocytes # 0.6 (0.0-1.3) K/mcL Eosinophils # 0.2 (0.0-0.6) K/mcL Basophils # 0.0 (0.0-0.2) K/mcL PT 14.2 H (9.4-12.1) Seconds INR 1.3 APTT 36.6 H (26.0-36.0) Seconds Sodium 123 L (136-145) mEq/L Potassium 3.6 (3.5-4.5) mEq/L Chloride 85 L (98-109) mEq/L Carbon Dioxide 27 (19-29) mEq/L BUN 82 H (8-26) mg/dL Creatinine 2.55 H (0.72-1.25) mg/dL Est GFR ( Amer) 29 L (> 60) Est GFR (Non-Af Amer) 24 L (> 60) BUN/Creatinine Ratio 32 H (6-26) Glucose 116 H (70-99) mg/dL Calculated Osmolality 282 (280-300) Calcium 9.3 (8.6-10.8) mg/dL Magnesium 2.1 (1.6-2.6) mg/dL Total Bilirubin 1.2 (0.2-1.2) mg/dL Direct Bilirubin 0.7 H (0.0-0.5) mg/dL Indirect Bilirubin 0.5 (0.0-1.2) mg/dL AST 42 H (5-34) Units/L ALT 19 (0-55) Units/L Alkaline Phosphatase 151 H (38-126) Units/L Serum Total Protein 8.4 H (6.0-8.3) g/dL Albumin 3.3 L (3.5-5.0) g/dL Globulin 5.1 H (2.4-3.5) g/dL Albumin/Globulin Ratio 0.6 L (1.1-2.2)
[2017-01-13 12:28] LABS: Bilirubin,Urine Negative (Negative); Blood,Urine Negative (Negative); Clarity,Urine Clear (Clear); Color,Urine Yellow (Yellow); Glucose,Urine (UA) Normal (Normal); Ketones,Urine Negative (Negative); Leukocyte Esterase,Urine Negative (Negative); Nitrite,Urine Negative (Negative); Protein,Urine Negative (Neg-Trace); Urobilinogen,Urine Normal (Normal)
[2017-01-13] MEDS ORDERED: Naloxone 0.4 MG/ML INJ IVP PRN (13:53)
[2017-01-13] MEDS ORDERED: Furosemide 40 MG TABLET PO SCH (14:10)
--- NOTE | 2017-01-13 14:22 | Internal Med History&Physical ---
<Carmen Torres - Last Filed: 01/13/17 15:30> Date of Encounter: 01/13/17 Time of Encounter: 14:16 Assessment and Plan (1) Hyponatremia Current visit: No Status: Acute 1 presently sodium is 12 3. Patient has a history of chronic hyponatremia suspect this is related to fluid overload/ cirrhosis with ascites. Patient states he has had a weight gain of approximately 5 pounds over 24 hours he is on diuretics his lower extremity edema as well as complaining of abdominal distention. We will continue with diuretics 2 place on fluid restriction 1500 mL's 3 monitor intake and output daily weights 4 nephrology has been consulted (2) Afib Current visit: No Status: Chronic We will continue with metoprolol-he does have a pacemaker-not on any ant coagulation patient has a history of frequent falls- we will place on baby aspirin daily and this will need to be reassessed prior to discharge Qualifiers: Atrial fibrillation type: permanent Qualified Code(s): I48.2 - Chronic atrial fibrillation (3) CAD (coronary artery disease) Current visit: No Status: Chronic 1 we will continue with metoprolol and statin Imdur baby aspirin lisinopril Qualifiers: Coronary Disease-Associated Artery/Lesion type: bypass graft [place] vs. transplanted heart: [place] heart Associated angina: with stable angina Qualified Code(s): I25.708 - Atherosclerosis of coronary artery bypass graft(s) , unspecified, with other forms of angina pectoris (4) CHF (congestive heart failure) Current visit: No Status: Chronic Appears patient's EF is approximately 35% per last echo. We will continue with Lasix will make it IV 40 twice a day 2 otter intake output daily weights 3 1500 mL fluid restriction 4 low-sodium diet Qualifiers: Congestive heart failure type: systolic Congestive heart failure chronicity : chronic Qualified Code(s): I50.22 - Chronic systolic (congestive) heart failure (5) CKD (chronic kidney disease), stage IV Current visit: No Status: Chronic 1 creatinine is 2.55 which appears to be stable we will continue to monitor creatinine 2 avoid nephrotoxins 3 monitor intake and output daily weights 4 nephrology see patient (6) Cirrhosis Current visit: No Status: Chronic 1 liver enzymes are stable for now patient has been experiencing edema weight gain in abdominal distention. We will obtain abdominal ULTRASOUND to evaluate ascites. 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 King is a 86 year old male past medical history afib CHF HTN [place] Stent pacemaker AICD PAD CKD 4 cirrhosis. Information obtained from medical records- patient has poor memory. Patient has had chronic history of hyponatremia , he was seen by his place change roof bolter who advised patient to continue the ER for evaluation since his sodium level has continued to drop he is 121. Really patient states that he has been experiencing abdominal fullness as well as he has noted weight gain and lower extremity edema. He denies any chest pain or shortness of breath or abdominal pain. He has a past history of frequent falls and cirrhosis in the past. 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 Upon presentation in the ER lab work did reveal sodium 123 potassium 3.6 mag was 2.1 serum osmolarity 289 urine sodium was 61. Patient has been admitted for further workup evaluation. Presently patient denies any pain or discomfort he does not appear to be respiratory distress his lung sounds are clear heart sounds are irregular S1-S2 with no rubs clicks gallops murmurs noted abdomen is soft slightly distended no tenderness he has +2 edema to lower extremities bilaterally up to knee. He is hemodynamically stable this time. I reviewed this case with Dr. Biggs who agrees with plan. Upon review it appears of patient does have a DNR CCA DNI paperwork filed in her system dated 10/15/2016. We will make patient DNR CCA DNI. Past Med Surg Social Fam HX - Past Medical History Medical history: atrial fibrillation, CHF, coronary artery disease, hyperlipidemia, hypertension, myocardial infarction, peripheral artery disease, renal disease, other Psychiatric history: no psych history - Past Surgical History Surgical History: angioplasty/stent, carotid endarterectomy, coronary bypass ( CABG), pacemaker/AICD, vascular surgery, other, pacemaker - Social History Smoking Status: Never smoker Smokeless Tobacco Status: No Alcohol use: none Drug use: none - Family History Father Living Status: Hx Family Cardiac Disorders: Yes Hx Family Endocrine Disorder: Yes Internal Medicine - H&P: Meds Atorvastatin [Lipitor] 40 mg PO HS 06/08/15 [History] Gabapentin [Neurontin] 600 mg PO HS 06/08/15 [History] Garlic 1,000 mg PO DAILY 06/08/15 [History] Loratadine [Claritin] 10 mg PO DAILY PRN 06/08/15 [History] Metoprolol [Lopressor] 50 mg PO BID 06/08/15 [History] Multivitamin [Flintstones] 1 each PO DAILY 06/08/15 [History] [place]-3S/Dha/Epa/Fish Oil [Fish Oil 1,200 mg Softgel] 1 each PO DAILY 06/08/15 [ History] Montelukast [Singulair] 10 mg PO HS 11/05/15 [History] Fluticasone Propionate Nasal [Flonase] 50 mcg NS DAILY 11/09/15 [History] Latanoprost 1 drop BOTH EYES HS 11/28/15 [History] Amlodipine Besylate 10 mg PO DAILY 06/12/16 [History] hydrOXYzine HCl [Hydroxyzine HCl] 25 mg PO Q8H PRN 06/12/16 [History] Ferrous Sulfate 325 mg PO BID #60 tablet 07/30/16 [Rx] Potassium Chloride 10 meq PO BIDWM #20 tab.er.prt 08/06/16 [Rx] ALPRAZolam [Xanax 0.5 MG Tablet] 0.5 mg PO BID PRN 10/12/16 [History] Calcium Carbonate/Vitamin D3 [Calcium 600 + Vit D Tablet] 1 each PO TID [History] Ipratropium/Albuterol Neb [Duoneb] 3 ml IH Q6H PRN 10/12/16 [History] Isosorbide MONOnitrate (24 HR) [Imdur] 30 mg PO DAILY 12/03/16 [History] Lactulose 20 gm PO BID 12/03/16 [History] Lisinopril [Zestril] 5 mg PO DAILY 12/03/16 [History] metOLazone [Zaroxolyn] 2.5 mg PO DAILY PRN #0 12/09/16 [Rx] Furosemide [Lasix] 80 mg PO BID 01/13/17 [History] Allergies clopidogrel [From Plavix] Allergy (Verified 12/03/16 19:46) Itching Cortisone Allergy (Verified 12/03/16 19:46) Joint Pain All Systems PM: A 10-system review of systems was performed and is negative for pertinent findings except as documented above in the HPI. - Constitutional Constitutional: falls, weight gain, no chills, no fever(s), no night sweats - EENT Eyes: no change in vision, no discharge, no pain, no photophobia Nose, mouth and throat: no dysphagia, no nasal discharge, no neck pain, no sore throat - Cardiovascular Cardiovascular ROS IM: no chest pain, no diaphoresis, no dyspnea, no lightheadedness, no palpitations, no syncope - Respiratory Respiratory: no cough, no dyspnea, no wheezing, no excessive phlegm production - Gastrointestinal Gastrointestinal: bloating, no abdominal pain, no diarrhea, no hematemesis, no hematochezia, no melena, no nausea, no vomiting - Musculoskeletal Musculoskeletal ROS IM: no numbness, no tingling - Integumentary Integumentary IM: no rash, no unusual bruising - Neurological Neurological ROS: no confusion, no convulsions, no focal weakness, no numbness, no tingling, no tremor(s) - Hematologic/Lymphatic Hematologic/Lymphatic: no easy bruising - Constitutional Vitals: Temp Pulse Resp BP Pulse Ox 97.4 F L 99 16 136/83 96 01/13/17 13:20 01/13/17 13:20 01/13/17 13:20 01/13/17 13:20 01/13/17 13:20 General appearance: Present: A&O X 3 - Head Head exam: Present: atraumatic, normocephalic - Eye Eye exam: Present: PERRL, conjuntiva pink, sclera anicteric Pupils: Present: PERRL - Neck Neck exam general surgery: Present: supple, trachea midline. Absent: lymphadenopathy - Respiratory Respiratory exam: Present: CTAB. Absent: accessory muscle use, rales, rhonchi, wheezes - Cardiovascular Cardiovascular exam: Present: RRR, +S1, +S2. Absent: diastolic murmur, gallop, rubs, systolic murmur - GI/Abdominal GI/Abdominal exam: Present: normal bowel sounds, soft, no peritoneal signs. Absent: distended, tenderness - Extremities Exam Extremities exam: Present: warm, radial pulses palpable and symetrical. Absent : calf tenderness, cyanotic, pedal edema - Neurological Exam Neurological exam: Present: CN II-XII intact, oriented X3, no focal deficits. Absent: pronater drift, facial droop, speech deficit - Skin Skin exam: Present: dry, intact Internal Med - H&P Results - Labs CBC & Chem 7: 01/13/17 10:24 01/13/17 10:24 Labs: Urine 01/13/17 Range/Units 12:08 Urine Color Yellow (Yellow) Urine Clarity Clear (Clear) Urine pH 7.0 (5.0-8.0) pH Units Ur Specific [place] 1.010 (1.010-1.025) Urine Protein Negative (Neg-Trace) mg/dL Urine Glucose (UA) Normal (Normal) mg/dL <Alexis Biggs T - Last Filed: 01/13/17 17:18> Date of Encounter: 01/13/17 Internal Medicine - H&P: HPI History of present illness: Mr. King is a 86 year old male All Systems PM: A 10-system review of systems was performed and is negative for pertinent findings except as documented above in the HPI. - Constitutional Vitals: Temp Pulse Resp BP Pulse Ox 97.7 F 85 16 119/75 99 01/13/17 16:16 01/13/17 16:16 01/13/17 16:16 01/13/17 16:16 01/13/17 16:16 Internal Med - H&P Results - Labs CBC & Chem 7: 01/13/17 10:24 01/13/17 10:24 Labs: Urine 01/13/17 Range/Units 12:08 Urine Color Yellow (Yellow) Urine Clarity Clear (Clear) Urine pH 7.0 (5.0-8.0) pH Units Ur Specific [place] 1.010 (1.010-1.025) Urine Protein Negative (Neg-Trace) mg/dL Urine Glucose (UA) Normal (Normal) mg/dL - Impressions ITS Impressions Abdomen Ultrasound 01/13/17 14:30 IMPRESSION: Mild-moderate ascites identified. D/ / 01/13/2017 15:30:11 Nixon Molina MD / gamaliel Interpreting Provider: Nixon Molina MD - Attending Attestation Patient reviewed and discussed with BRYAN Torres 86 M with chronic hyponatremia, Cirrhosis, CHF, CAD, Afib Referred to [facility] by nephrology for severe hyponatremia Patient is at his baseline and essentially asymptomatic of his hyponatremia Renal team has been consulted and following He has pedal edema which is chronic,he is on diuretics at home Labs and Imaging reviewed A/P: Hypoosmolar hyponatremia possibly from a fluid overload status, resume home diuretics, check USS for ascites, monitor chem q6, follow renal recommendations Chronic medical conditions are stable Rest of details as in BRYAN Torres documentation, which I agree with.
[2017-01-13] MEDS: Furosemide 40 MG/4 ML VIAL IVP SCH ×2 (15:52→22:02)
[2017-01-13] MEDS ORDERED: Ipratropium/Albuterol Neb 3 ML IH PRN (16:00)
--- NOTE | 2017-01-13 17:13 | Nephrology Consult Note ---
Date of Encounter: 01/13/17 Time of Encounter: 17:10 Assessment and Plan (1) Hyponatremia Current Visit: Yes Status: Acute Patient with chronic hyponatremia. His current mental status is likely not related to the hyponatremia as nursing tells me he was more verbal earlier. Agree with fluid restriction and loop diuretics for now. Secondary to his volume overload state we will hold on giving intravenous saline at this time. TSH in November was normal. We will check sodium every 8 hours to assure the sodium does not decrease and does not rise rapidly. His sodium should not rise higher than 6-8 mg/L per 24 hour period. (2) CKD (chronic kidney disease) stage 4, GFR 15-29 ml/min Current Visit: No Status: Acute Renal function appears to be stable. Avoid nephrotoxic agents. Adjust medications for renal function. If patient will receive large-volume present teases he will need albumin to prevent intravascular depletion and possible acute kidney injury. History of Present Illness - Reason for Consult Consult date: 01/13/17 hyponatremia - Chief Complaint hyponatremia. - History of Present Illness Mr. King is an 86 -year-old man known to [facility]. He was seen last month for hyponatremia. He was returns to [facility] for evaluation of increased weight gain and was found to have hyponatremia and nephrology was called to assist with management of hyponatremia. Patient is lethargic at the time of my evaluation and only nodding his head yes and no. He denied any new pains, but nodded yes that he came in just for swelling of his belly. Review of system otherwise was unobtainable secondary to his mental status/lethargy. Past Med Surg Social Fam HX - Past Medical History Medical history: atrial fibrillation, CHF, coronary artery disease, hyperlipidemia, hypertension, myocardial infarction, peripheral artery disease, renal disease, other Psychiatric history: no psych history - Past Surgical History Surgical History: angioplasty/stent, carotid endarterectomy, coronary bypass ( CABG), pacemaker/AICD, vascular surgery, other, pacemaker - Social History Smoking Status: Never smoker Smokeless Tobacco Status: No Alcohol use: none Drug use: none - Family History Father Living Status: Hx Family Cardiac Disorders: Yes Hx Family Endocrine Disorder: Yes Medications and Allergies Atorvastatin [Lipitor] 40 mg PO HS 06/08/15 [History] Gabapentin [Neurontin] 600 mg PO HS 06/08/15 [History] Garlic 1,000 mg PO DAILY 06/08/15 [History] Loratadine [Claritin] 10 mg PO DAILY PRN 06/08/15 [History] Metoprolol [Lopressor] 50 mg PO BID 06/08/15 [History] Multivitamin [Flintstones] 1 each PO DAILY 06/08/15 [History] [place]-3S/Dha/Epa/Fish Oil [Fish Oil 1,200 mg Softgel] 1 each PO DAILY 06/08/15 [ History] Montelukast [Singulair] 10 mg PO HS 11/05/15 [History] Fluticasone Propionate Nasal [Flonase] 50 mcg NS DAILY 11/09/15 [History] Latanoprost 1 drop BOTH EYES HS 11/28/15 [History] Amlodipine Besylate 10 mg PO DAILY 06/12/16 [History] hydrOXYzine HCl [Hydroxyzine HCl] 25 mg PO Q8H PRN 06/12/16 [History] Ferrous Sulfate 325 mg PO BID #60 tablet 07/30/16 [Rx] Potassium Chloride 10 meq PO BIDWM #20 tab.er.prt 08/06/16 [Rx] ALPRAZolam [Xanax 0.5 MG Tablet] 0.5 mg PO BID PRN 10/12/16 [History] Calcium Carbonate/Vitamin D3 [Calcium 600 + Vit D Tablet] 1 each PO TID [History] Ipratropium/Albuterol Neb [Duoneb] 3 ml IH Q6H PRN 10/12/16 [History] Isosorbide MONOnitrate (24 HR) [Imdur] 30 mg PO DAILY 12/03/16 [History] Lactulose 20 gm PO BID 12/03/16 [History] Lisinopril [Zestril] 5 mg PO DAILY 12/03/16 [History] metOLazone [Zaroxolyn] 2.5 mg PO DAILY PRN #0 12/09/16 [Rx] Furosemide [Lasix] 80 mg PO BID 01/13/17 [History] Allergies clopidogrel [From Plavix] Allergy (Verified 12/03/16 19:46) Itching Cortisone Allergy (Verified 12/03/16 19:46) Joint Pain Review of Systems ROS unobtainable: due to mental status All Systems: reviewed and no additional remarkable complaints except as stated ( As documented in history of present illness) Exam - Vital Signs Vital signs: Initial Vital Signs Temp Pulse Resp BP Pulse Ox 97.9 F 71 16 121/62 99 01/13/17 10:19 01/13/17 10:19 01/13/17 10:19 01/13/17 10:19 01/13/17 10:19 Vital Signs - Last 8 Hours Temp Pulse Resp BP Pulse Ox 01/13/17 16:16 97.7 F 85 16 119/75 99 01/13/17 13:20 97.4 F L 99 16 136/83 96 01/13/17 12:40 16 132/79 Intake and Output 01/13/17 01/13/17 01/13/17 07:59 15:59 23:59 Intake Total 500 / 500 Balance 500 / 500 Intake: IV Fluids 500 / 500 0.9 % Sodium Chloride 500 500 / 500 ML @ 1875 mls/hr IVC . Q16M ONE Rx#:[id number] Other: # Voids 1 Weight 79.197 kg Patient Weight 01/13/17 23:59 Weight 79.197 kg - General Appearance General appearance: well-developed, chronically ill, frail EENT: ATNC Neck: supple Respiratory: clear Cardiology: edema (2-3+ edema), regular rate Gastrointestinal: normoactive bowel sounds, no tenderness, distended Integumentary: warm and dry Additional Comments: lethargic, but arousable Psychiatric: mood/affect appropriate Results - Lab Results 01/13/17 10:24 01/13/17 10:24 Most recent lab results Calcium 9.3 mg/dL (8.6-10.8) 01/13/17 10:24 Magnesium 2.1 mg/dL (1.6-2.6) 01/13/17 10:24 Urine Sodium 61.0 mEq/L 01/13/17 12:08 Consult Discharge Plan - Plan Referrals: Paola Rushing, BUSINESS INTELLIGENCE CONSULTANT [Primary Care Provider] -
--- NOTE | 2017-01-13 17:42 | Event Note ---
Date of Encounter: 01/13/17 Time of Encounter: 17:03
[2017-01-13 18:33] LABS: Calcium 8.9 mg/dL (8.6-10.8); Potassium 3.3 mEq/L (3.5-4.5)
[2017-01-13] MEDS: Acetaminophen 325 MG TABLET PO PRN (22:01)
[2017-01-13] MEDS: Lactulose Oral Soln 20 GM/30 ML UDC PO SCH (22:02)
[2017-01-13] MEDS: Gabapentin 300 MG CAPSULE PO SCH (22:02)
[2017-01-14 08:32] LABS: Basophils % 0.2 %; Eosinophils # 0.2 K/mcL (0.0-0.6); Eosinophils % 3.3 %; Hematocrit 29.2 % (37.5-50.1); Immature Granulocytes % 0.3 % (0-4); Lymphocytes # 0.7 K/mcL (0.6-4.6); Mean Corpuscular HGB Conc 34.2 g/dL (31.6-35.5); Mean Corpuscular Volume 90.4 fL (83.0-100.0); Mean Platelet Volume 11.1 fL (9.4-12.4); Monocytes # 0.5 K/mcL (0.0-1.3); Monocytes % 8.4 %; Neutrophils # 4.7 K/mcL (1.6-8.9); Platelet Count 100 K/mcL (140-400); Red Blood Count 3.23 M/mcL (4.19-5.50); Segmented Neutrophils % 76.8 %
[2017-01-14 08:44] LABS: Calcium 9.1 mg/dL (8.6-10.8); Magnesium 1.9 mg/dL (1.6-2.6); Potassium 3.5 mEq/L (3.5-4.5)
--- NOTE | 2017-01-14 08:49 | Electrocardiograph Report ---
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
[2017-01-14] MEDS: Lactulose Oral Soln 20 GM/30 ML UDC PO SCH ×2 (09:17→20:51)
[2017-01-14] MEDS: Furosemide 40 MG/4 ML VIAL IVP SCH ×2 (09:17→20:46)
[2017-01-14] MEDS: Aspirin Enteric Coated 81 MG Tablet PO SCH (09:19)
[2017-01-14] MEDS: Isosorbide MONOnitrate (24 HR) 30 MG TAB.ER.24H PO SCH (09:19)
[2017-01-14] MEDS: amLODIPine 5 MG TABLET PO SCH (09:19)
[2017-01-14] MEDS: Fluticasone Propionate Nasal 50 MCG/SPRAY BOTTLE NS SCH (09:19)
--- NOTE | 2017-01-14 11:22 | Nephrology Progress Note ---
Date of Encounter: 01/14/17 Time of Encounter: 11:20 - Assessment and Plan (1) Hyponatremia Current Visit: Yes Status: Acute Slow improvement in sodium level. If no improvement by tomorrow will consider aquaretic vs. increasing loop diuretic. (2) CKD (chronic kidney disease) stage 4, GFR 15-29 ml/min Current Visit: No Status: Acute renal function stable. (3) Anemia Current Visit: No Status: Chronic Monitor hemoglobin. Tranfuse as needed. Qualifiers: Anemia type: unspecified type Qualified Code(s): D64.9 - Anemia, unspecified (4) Cirrhosis Current Visit: No Status: Chronic with anasarca/ascites Per primary team. Continue with fluid restriction and gentle diuresis. Qualifiers: Hepatic cirrhosis type: unspecified hepatic cirrhosis Ascites presence: with ascites Qualified Code(s): K74.60 - Unspecified cirrhosis of liver Subjective Principal diagnosis: hyponatremia Interval history: Patient seen. Sleeping. Objective - Vital Signs Vital signs: Vital Signs Temp Pulse Resp BP Pulse Ox 01/14/17 11:09 97.7 F 60 13 123/61 96 01/14/17 07:13 97.6 F 70 12 138/61 97 01/14/17 03:30 98.5 F 59 16 111/62 98 01/14/17 00:13 98.4 F 59 16 106/57 97 01/13/17 19:59 98.0 F 58 16 121/69 98 01/13/17 16:16 97.7 F 85 16 119/75 99 Intake and Output 01/13/17 01/14/17 01/14/17 23:59 07:59 15:59 Intake Total 150 / 150 240 / 240 Output Total 600 / 600 2099 / 2100 200 / 200 Balance -450 / -450 -2100 / -2100 40 / 40 Intake: Oral 150 / 150 240 / 240 Output: Urine 600 / 600 2099 / 2100 200 / 200 Other: Meal Breakfast Percent of Meal Consumed 100% Stool Size Small Stool Consistency soft Stool Color Brown # Voids 1 # Bowel Movements 1 Weight 80.3 kg Patient Weight 01/14/17 23:59 Weight 80.3 kg - General Appearance General appearance: Present: well-developed, well-nourished EENT: Present: ATNC Respiratory: Present: clear Cardiology: Present: edema, regular rate Integumentary: Present: warm and dry Additional Comments: Asleep. - Lab 01/14/17 08:21 01/14/17 08:21 Most recent lab results Calcium 9.1 mg/dL (8.6-10.8) 01/14/17 08:21 Magnesium 1.9 mg/dL (1.6-2.6) 01/14/17 08:21 Urine Sodium 61.0 mEq/L 01/13/17 12:08 Consult Discharge Plan - Plan Referrals: Paola Rushing, MOTH PROOFER [Primary Care Provider] -
[2017-01-14] MEDS: Acetaminophen 325 MG TABLET PO PRN (15:48)
[2017-01-14] MEDS: Gabapentin 300 MG CAPSULE PO SCH (20:52)
[2017-01-15] MEDS: Acetaminophen 325 MG TABLET PO PRN ×2 (02:24→20:16)
--- NOTE | 2017-01-15 08:04 | Internal Med Progress Note ---
Date of Encounter: 01/15/17 Time of Encounter: 08:04 - Assessment and plan (1) Hyponatremia Current Visit: No Status: Acute Assessment and plan: being followed by renal. sodium level is better today. possible 2/2 hypervolemic hyponatremia given cirrhosis with ascitis and b/l leg edema will continue the lasix for now. no change in mental status. (2) CKD (chronic kidney disease) stage 4, GFR 15-29 ml/min Current Visit: No Status: Chronic (3) Cirrhosis Current Visit: No Status: Chronic Assessment and plan: has mild to moderate ascitis, lfts within normal range. will add spironolactone, no need for paracentesis at this time. Qualifiers: Hepatic cirrhosis type: unspecified hepatic cirrhosis Ascites presence: with ascites Qualified Code(s): K74.60 - Unspecified cirrhosis of liver (4) Atrial fibrillation, permanent Current Visit: No Status: Chronic Assessment and plan: We will continue with metoprolol-he does have a pacemaker-not on any ant coagulation patient has a history of frequent falls- we will place on baby aspirin daily (5) CAD (coronary artery disease) Current Visit: No Status: Chronic Assessment and plan: we will continue with metoprolol and statin Imdur baby aspirin lisinopril Qualifiers: Coronary Disease-Associated Artery/Lesion type: bypass graft [place] vs. transplanted heart: [place] heart Associated angina: with stable angina Qualified Code(s): I25.708 - Atherosclerosis of coronary artery bypass graft(s) , unspecified, with other forms of angina pectoris (6) Congestive heart failure Current Visit: No Status: Chronic Assessment and plan: Appears patient's EF is approximately 35% per last echo. We will continue with Lasix and will add spironolactone, it appears that he was taken off metolazone due to dehydration by renal on his last hospital admission. 2 monitor intake output daily weights 3 1500 mL fluid restriction 4 low-sodium diet Qualifiers: Congestive heart failure type: combined Congestive heart failure chronicity : chronic Qualified Code(s): I50.42 - Chronic combined systolic (congestive) and diastolic (congestive) heart failure (7) CKD (chronic kidney disease), stage IV Current Visit: No Status: Chronic Assessment and plan: renal fxn seems to be at baseline. will continue to monitor. renal is on board. - Subjective Interval history: late entry patient was seen at the bedside, denies any complaints. he is admitted for hyponatremia which seems to be acute on chronic. - Constitutional Vitals: Temp Pulse Resp BP Pulse Ox 97.9 F 52 15 110/43 95 01/15/17 05:55 01/15/17 05:55 01/15/17 05:55 01/15/17 05:55 01/15/17 05:55 General appearance: Present: A&O X 3 Internal Medicine: Result - Labs CBC & Chem 7: 01/14/17 08:21 01/15/17 11:53 Labs: Short CBC 01/14/17 Range/Units 08:21 WBC 6.1 (4.3-11.1) K/mcL Hgb 10.0 L (12.9-16.9) g/dL Hct 29.2 L (37.5-50.1) % Plt Count 100 L (140-400) K/mcL Neutrophils # 4.7 (1.6-8.9) K/mcL BMP 01/14/17 01/14/17 01/14/17 08:21 12:14 16:28 Sodium 124 L 125 L 125 L Potassium 3.5 Chloride 87 L Carbon Dioxide 27 BUN 80 H Creatinine 2.38 H Glucose 95 Calcium 9.1 01/14/17 01/15/17 19:08 03:33 Sodium 126 L 127 L Potassium Chloride Carbon Dioxide BUN Creatinine Glucose Calcium - ABG Interpretation ABG results: PT/INR, D-dimer PT 14.2 Seconds (9.4-12.1) H 01/13/17 10:36 Consult Discharge Plan - Plan Referrals: Paola Rushing, VICTORINA [Primary Care Provider] - 01/26/17 9:20 am ()
[2017-01-15] MEDS: Aspirin Enteric Coated 81 MG Tablet PO SCH (09:33)
[2017-01-15] MEDS: Isosorbide MONOnitrate (24 HR) 30 MG TAB.ER.24H PO SCH (09:33)
[2017-01-15] MEDS: Fluticasone Propionate Nasal 50 MCG/SPRAY BOTTLE NS SCH (09:33)
[2017-01-15] MEDS: amLODIPine 5 MG TABLET PO SCH (09:33)
[2017-01-15] MEDS: Furosemide 40 MG/4 ML VIAL IVP SCH ×2 (09:33→20:16)
[2017-01-15] MEDS: Lactulose Oral Soln 20 GM/30 ML UDC PO SCH ×2 (09:33→20:17)
--- NOTE | 2017-01-15 12:13 | Nephrology Progress Note ---
Date of Encounter: 01/15/17 Time of Encounter: 12:11 - Assessment and Plan (1) Hyponatremia Current Visit: Yes Status: Acute Slow improvement in sodium level with furosemide and fluid restriction. Continue with current therapies. (2) CKD (chronic kidney disease) stage 4, GFR 15-29 ml/min Current Visit: No Status: Acute renal function stable. (3) Anemia Current Visit: No Status: Chronic Monitor hemoglobin. Tranfuse as needed. Qualifiers: Anemia type: unspecified type Qualified Code(s): D64.9 - Anemia, unspecified (4) Cirrhosis Current Visit: No Status: Chronic with anasarca/ascites Per primary team. Continue with fluid restriction and gentle diuresis. If the patient requires a paracentesis that I recommend infusion of albumin to protect from intravascular shifts that can be associated with large volume paracentesis. Qualifiers: Hepatic cirrhosis type: unspecified hepatic cirrhosis Ascites presence: with ascites Qualified Code(s): K74.60 - Unspecified cirrhosis of liver Subjective Principal diagnosis: hyponatremia Interval history: Patient seen. He is sitting up in a chair. He has no new complaints. Review of system overall stable. Objective - Vital Signs Vital signs: Vital Signs Temp Pulse Resp BP Pulse Ox 01/15/17 05:55 97.9 F 52 15 110/43 95 01/14/17 20:28 97.5 F L 48 16 105/45 98 01/14/17 16:34 98.1 F 56 14 128/66 96 Intake and Output 01/14/17 01/15/17 01/15/17 23:59 07:59 15:59 Intake Total 540 / 540 0 / 0 360 / 360 Output Total 200 / 200 1100 / 1100 Balance 340 / 340 -1100 / -1100 360 / 360 Intake: Oral 540 / 540 0 / 0 360 / 360 Output: Urine 200 / 200 1100 / 1100 Other: Meal Dinner Breakfast Percent of Meal Consumed 50% 50% Weight 81.02 kg Patient Weight 01/15/17 23:59 Weight 81.02 kg - General Appearance General appearance: Present: well-developed, well-nourished, chronically ill EENT: Present: ATNC Neck: Present: supple Additional Comments: He has a few crackles in the left base, otherwise his lung sounds are clear to auscultation. Cardiology: Present: edema, regular rate Gastrointestinal: Present: no tenderness, distended Integumentary: Present: warm and dry Neurologic: Present: alert and oriented x3 Psychiatric: Present: mood/affect appropriate - Lab 01/14/17 08:21 01/15/17 03:33 Most recent lab results Calcium 9.1 mg/dL (8.6-10.8) 01/14/17 08:21 Magnesium 1.9 mg/dL (1.6-2.6) 01/14/17 08:21 Urine Sodium 61.0 mEq/L 01/13/17 12:08 Consult Discharge Plan - Plan Referrals: Paola Rushing, SEWAGE DISPOSAL ENGINEER [Primary Care Provider] - 01/26/17 9:20 am ()
[2017-01-15 12:24] LABS: Calcium 9.3 mg/dL (8.6-10.8); Potassium 3.1 mEq/L (3.5-4.5)
--- NOTE | 2017-01-15 17:47 | Internal Med Progress Note ---
Date of Encounter: 01/15/17 Time of Encounter: 17:45 - Assessment and plan (1) Hyponatremia Current Visit: No Status: Acute Assessment and plan: being followed by renal. sodium level is better today at 127. possible 2/2 hypervolemic hyponatremia given cirrhosis with ascitis and b/l leg edema will continue the lasix for now, have added spironolactone, potassium on the lower side. no change in mental status, appreciate renal recommendations. (2) Cirrhosis Current Visit: No Status: Chronic Assessment and plan: has mild to moderate ascitis, lfts within normal range. will add spironolactone, no need for paracentesis at this time. Qualifiers: Hepatic cirrhosis type: unspecified hepatic cirrhosis Ascites presence: with ascites Qualified Code(s): K74.60 - Unspecified cirrhosis of liver (3) Atrial fibrillation, permanent Current Visit: No Status: Chronic Assessment and plan: We will continue with metoprolol-he does have a pacemaker-not on any ant coagulation patient has a history of frequent falls- we will place on baby aspirin daily (4) CAD (coronary artery disease) Current Visit: No Status: Chronic Assessment and plan: we will continue with metoprolol and statin Imdur baby aspirin lisinopril Qualifiers: Coronary Disease-Associated Artery/Lesion type: bypass graft [place] vs. 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 We will continue with Lasix and will add spironolactone, it appears that he was taken off metolazone due to dehydration by renal on his last hospital admission. 2 monitor intake output daily weights 3 1500 mL fluid restriction 4 low-sodium diet Qualifiers: Congestive heart failure type: combined Congestive heart failure chronicity : chronic Qualified Code(s): I50.42 - Chronic combined systolic (congestive) and diastolic (congestive) heart failure (6) CKD (chronic kidney disease), stage IV Current Visit: No Status: Chronic Assessment and plan: renal fxn seems to be at baseline. will continue to monitor. renal is on board. - Subjective Interval history: patient was seen at the bedside, denies any complaints. he is admitted for hyponatremia which seems to be acute on chronic. possible dc tomjosé manuel hall am has HH nurse and PT. - Constitutional Vitals: Temp Pulse Resp BP Pulse Ox 98.3 F 62 16 104/45 97 01/15/17 15:13 01/15/17 15:13 01/15/17 15:13 01/15/17 15:13 01/15/17 15:13 General appearance: Present: A&O X 3 Exam: - Head Head exam: Present: atraumatic, normocephalic - Eye Eye exam: Present: PERRL, conjuntiva pink, sclera anicteric Pupils: Present: PERRL - Neck Neck exam general surgery: Present: supple, trachea midline. Absent: lymphadenopathy - Respiratory Respiratory exam: Present: CTAB. Absent: accessory muscle use, rales, rhonchi, wheezes - Cardiovascular Cardiovascular exam: Present: RRR, +S1, +S2. Absent: diastolic murmur, gallop, rubs, systolic murmur - GI/Abdominal GI/Abdominal exam: Present: normal bowel sounds, soft, no peritoneal signs. Absent: distended, tenderness - Extremities Exam Extremities exam: Present: warm, radial pulses palpable and symetrical. Absent : calf tenderness, cyanotic, pedal edema - Neurological Exam Neurological exam: Present: CN II-XII intact, oriented X3, no focal deficits. Absent: pronater drift, facial droop, speech deficit - Skin Skin exam: Present: dry, intact Internal Medicine: Result - Labs CBC & Chem 7: 01/14/17 08:21 01/15/17 11:53 Labs: BMP 01/14/17 01/15/17 01/15/17 19:08 03:33 11:53 Sodium 126 L 127 L 127 L Potassium Chloride Carbon Dioxide BUN Creatinine Glucose Calcium 01/15/17 11:53 Sodium 127 L Potassium 3.1 L Chloride 87 L Carbon Dioxide 28 BUN 79 H Creatinine 2.60 H Glucose 81 Calcium 9.3 - ABG Interpretation ABG results: PT/INR, D-dimer PT 14.2 Seconds (9.4-12.1) H 01/13/17 10:36 Consult Discharge Plan - Plan Referrals: Paola Rushing, TELECOM SALES CONSULTANT [Primary Care Provider] - 01/26/17 9:20 am ()
[2017-01-15] MEDS: Gabapentin 300 MG CAPSULE PO SCH (20:16)
[2017-01-16 06:42] LABS: Hematocrit 26.2 % (37.5-50.1); Hemoglobin 8.9 g/dL (12.9-16.9); Immature Platelets 4.3 % (1.1-6.1); Mean Corpuscular Hemoglobin 30.9 pg (28.0-33.3); Mean Platelet Volume 10.9 fL (9.4-12.4); Red Blood Count 2.88 M/mcL (4.19-5.50); Red Cell Distribution Width 15.1 % (11.5-14.5)
[2017-01-16 06:54] LABS: Magnesium 1.6 mg/dL (1.6-2.6); Phosphorous 3.5 mg/dL (2.3-4.7)
[2017-01-16 06:56] LABS: Albumin 2.9 g/dL (3.5-5.0); Albumin/Globulin Ratio 0.6 (1.1-2.2); Bilirubin,Total 1.1 mg/dL (0.2-1.2); Globulin 4.5 g/dL (2.4-3.5); Potassium 3.4 mEq/L (3.5-4.5); Total Protein 7.4 g/dL (6.0-8.3)
--- NOTE | 2017-01-16 08:10 | Nephrology Progress Note ---
Date of Encounter: 01/17/17 Time of Encounter: 08:55 - Assessment and Plan (1) Hyponatremia Current Visit: Yes Status: Acute Acute on chronic hypervolemic hyponatremia from anasarca. Yesterday's I/O's suggest an underdiuresis: he was not sufficiently net-negative in terms of UOP ( assuming it was accurately recorded). This also fits with his PNa of 127 that has not improved. SCr remains stable, so I will increase his lasix today to 40mg IV tid. Will also increase the Spronolactone to 50mg po bid, which will help with the hypokalemia and diuresis as well. I received a face to face sign-out from my colleague Dr. Douglas. (2) Anasarca Current Visit: No Status: Acute (3) CKD (chronic kidney disease) stage 4, GFR 15-29 ml/min Current Visit: No Status: Acute (4) Debility Current Visit: No Status: Acute (5) Hypokalemia Current Visit: No Status: Acute (6) Generalized weakness Current Visit: Yes Status: Acute Subjective Principal diagnosis: hyponatremia Interval history: Pt was s/e and did not affirm N/V/D or other major complaints. Objective - Vital Signs Vital signs: Vital Signs Temp Pulse Resp BP Pulse Ox 01/16/17 07:09 97.1 F L 52 16 107/59 96 01/16/17 05:16 98.1 F 77 15 94/36 96 01/15/17 20:04 97.5 F L 75 16 106/62 93 01/15/17 15:13 98.3 F 62 16 104/45 97 01/15/17 12:15 130/68 Intake and Output 01/15/17 01/16/17 01/16/17 23:59 07:59 15:59 Intake Total 240 / 240 Balance 240 / 240 Intake: Oral 240 / 240 Other: Meal Dinner Percent of Meal Consumed 50% Weight 81.02 kg Patient Weight 01/16/17 23:59 Weight 81.02 kg - General Appearance General appearance: Present: appears started age, chronically ill, fatigue, frail EENT: Present: ATNC, PERRL, mucous membranes moist Neck: Present: supple Respiratory: Present: clear Cardiology: Present: S3 gallop, edema, regular rate, normal S1, normal S2 Gastrointestinal: Present: normoactive bowel sounds, no tenderness, no guarding Integumentary: Present: warm and dry Neurologic: Present: no asterixis, alert and oriented x3 Musculoskeletal: Present: no deformities, no erythema, no cyanosis Psychiatric: Present: mood/affect appropriate, cooperative - Lab 01/16/17 06:35 01/16/17 06:35 Most recent lab results Calcium 9.0 mg/dL (8.6-10.8) 01/16/17 06:35 Phosphorus 3.5 mg/dL (2.3-4.7) 01/16/17 06:35 Magnesium 1.6 mg/dL (1.6-2.6) 01/16/17 06:35 Urine Sodium 61.0 mEq/L 01/13/17 12:08 Consult Discharge Plan - Plan Referrals: Paola Rushing, VICTORINA [Primary Care Provider] - 01/26/17 9:20 am ()
[2017-01-16] MEDS: Lactulose Oral Soln 20 GM/30 ML UDC PO SCH ×2 (09:41→21:39)
[2017-01-16] MEDS: Aspirin Enteric Coated 81 MG Tablet PO SCH (09:41)
[2017-01-16] MEDS: Fluticasone Propionate Nasal 50 MCG/SPRAY BOTTLE NS SCH (09:42)
[2017-01-16] MEDS: amLODIPine 5 MG TABLET PO SCH (10:11)
[2017-01-16] MEDS: Furosemide 40 MG/4 ML VIAL IVP SCH ×3 (10:14→16:29)
[2017-01-16] MEDS: Isosorbide MONOnitrate (24 HR) 30 MG TAB.ER.24H PO SCH (10:14)
--- NOTE | 2017-01-16 17:14 | Internal Med Progress Note ---
Date of Encounter: 01/16/17 Time of Encounter: 17:11 - Assessment and plan (1) Hyponatremia Current Visit: No Status: Acute Assessment and plan: being followed by renal. sodium level at 127. possible 2/2 hypervolemic hyponatremia given cirrhosis with ascitis and b/l leg edema dose of lasix has been increased by renal and also the spironolactone, no change in mental status, appreciate renal recommendations. (2) Cirrhosis Current Visit: No Status: Chronic Assessment and plan: has mild to moderate ascitis, lfts within normal range. will add spironolactone, no need for paracentesis at this time. Qualifiers: Hepatic cirrhosis type: unspecified hepatic cirrhosis Ascites presence: with ascites Qualified Code(s): K74.60 - Unspecified cirrhosis of liver (3) Atrial fibrillation, permanent Current Visit: No Status: Chronic Assessment and plan: We will continue with metoprolol-he does have a pacemaker-not on any ant coagulation patient has a history of frequent falls- we will place on baby aspirin daily (4) CAD (coronary artery disease) Current Visit: No Status: Chronic Assessment and plan: we will continue with metoprolol and statin Imdur baby aspirin lisinopril Qualifiers: Coronary Disease-Associated Artery/Lesion type: bypass graft [place] vs. 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 We will continue with Lasix and will add spironolactone, it appears that he was taken off metolazone due to dehydration by renal on his last hospital admission. 2 monitor intake output daily weights 3 1500 mL fluid restriction 4 low-sodium diet Qualifiers: Congestive heart failure type: combined Congestive heart failure chronicity : chronic Qualified Code(s): I50.42 - Chronic combined systolic (congestive) and diastolic (congestive) heart failure (6) CKD (chronic kidney disease), stage IV Current Visit: No Status: Chronic Assessment and plan: renal fxn seems to be at baseline. will continue to monitor. renal is on board. - Subjective Interval history: patient was seen at the bedside, denies any complaints. sitting on [facility] chair and having lunch. he is admitted for hyponatremia which seems to be acute on chronic. renal following, josé manuel has HH nurse and PT. - Constitutional Vitals: Temp Pulse Resp BP Pulse Ox 98 F 63 18 108/52 98 01/16/17 15:14 01/16/17 15:14 01/16/17 15:14 01/16/17 15:14 01/16/17 15:14 General appearance: Present: A&O X 3 Exam: Head Head exam: Present: atraumatic, normocephalic - Eye Eye exam: Present: PERRL, conjuntiva pink, sclera anicteric Pupils: Present: PERRL - Neck Neck exam general surgery: Present: supple, trachea midline. Absent: lymphadenopathy - Respiratory Respiratory exam: Present: CTAB. Absent: accessory muscle use, rales, rhonchi, wheezes - Cardiovascular Cardiovascular exam: Present: RRR, +S1, +S2. Absent: diastolic murmur, gallop, rubs, systolic murmur - GI/Abdominal GI/Abdominal exam: Present: normal bowel sounds, soft, no peritoneal signs. Absent: distended, tenderness - Extremities Exam Extremities exam: Present: warm, radial pulses palpable and symetrical. Absent : calf tenderness, cyanotic, pedal edema - Neurological Exam Neurological exam: Present: CN II-XII intact, oriented X3, no focal deficits. Absent: pronater drift, facial droop, speech deficit - Skin Skin exam: Present: dry, intact Internal Medicine: Result - Labs CBC & Chem 7: 01/16/17 06:35 01/16/17 06:35 Labs: Short CBC 01/16/17 Range/Units 06:35 WBC 6.0 (4.3-11.1) K/mcL Hgb 8.9 L (12.9-16.9) g/dL Hct 26.2 L (37.5-50.1) % Plt Count 89 L (140-400) K/mcL BMP 01/16/17 06:35 Sodium 127 L Potassium 3.4 L Chloride 91 L Carbon Dioxide 27 BUN 81 H Creatinine 2.32 H Glucose 95 Calcium 9.0 Liver Function 01/16/17 Range/Units 06:35 Total Bilirubin 1.1 (0.2-1.2) mg/dL AST 41 H (5-34) Units/L ALT 18 (0-55) Units/L Alkaline Phosphatase 124 (38-126) Units/L Albumin 2.9 L (3.5-5.0) g/dL - ABG Interpretation ABG results: PT/INR, D-dimer PT 14.2 Seconds (9.4-12.1) H 01/13/17 10:36 Consult Discharge Plan - Plan Referrals: Paola Rushing, VICTORINA [Primary Care Provider] - 01/26/17 9:20 am ()
[2017-01-16] MEDS: Gabapentin 300 MG CAPSULE PO SCH (21:40)
[2017-01-17 08:15] LABS: Calcium 9.3 mg/dL (8.6-10.8); Potassium 3.6 mEq/L (3.5-4.5)
[2017-01-17] MEDS: amLODIPine 5 MG TABLET PO SCH (08:57)
[2017-01-17] MEDS: Isosorbide MONOnitrate (24 HR) 30 MG TAB.ER.24H PO SCH (08:58)
[2017-01-17] MEDS: Furosemide 40 MG/4 ML VIAL IVP SCH ×3 (08:58→17:50)
[2017-01-17] MEDS: Lactulose Oral Soln 20 GM/30 ML UDC PO SCH ×2 (08:58→21:13)
[2017-01-17] MEDS: Aspirin Enteric Coated 81 MG Tablet PO SCH (08:58)
[2017-01-17] MEDS: Fluticasone Propionate Nasal 50 MCG/SPRAY BOTTLE NS SCH (08:58)
--- NOTE | 2017-01-17 09:28 | Nephrology Progress Note ---
Date of Encounter: 01/17/17 Time of Encounter: 09:15 - Assessment and Plan (1) Hyponatremia Current Visit: Yes Status: Acute Acute on chronic hypervolemic hyponatremia from anasarca and potentially from liver disease. Improved UOP and serum K was adequate today after having increased the Lasix ( 40mg IV tid) and Sprionolactone (50mg po bid) yesterday. Yet his PNa remains below a desirably safe level. I recommend yet another day of IV lasix and if his PNa still does not improve by tomorrow AM, then it may be worth the risks vs benefits of giving him a one time dose of Tolvaptan to help augment a free water diuresis. Before he can be discharged, I also recommend that he should have about 24-36hr of oral diuretics with lab monitoring and I/Os monitor to ensure that he can safely tolerate oral diuretic. Nevertheless, today he still has indications for Lasix IV. SCr is relatively stable. Continue to follow a renal protective strategy by avoiding any concomitant nephrotoxins. Thank you. (2) Anasarca Current Visit: No Status: Acute (3) CKD (chronic kidney disease) stage 4, GFR 15-29 ml/min Current Visit: No Status: Acute (4) Debility Current Visit: No Status: Acute (5) Hypokalemia Current Visit: No Status: Acute (6) Generalized weakness Current Visit: Yes Status: Acute Subjective Principal diagnosis: hyponatremia Interval history: Pt was s/e and did not affirm N/V/D or other major complaints. Affirmed having fatigue Objective - Vital Signs Vital signs: Vital Signs Temp Pulse Resp BP Pulse Ox 01/17/17 08:41 64 118/49 01/17/17 07:59 97.6 F 60 16 121/56 97 01/17/17 03:21 98.5 F 69 16 100/47 95 01/17/17 00:14 98.2 F 59 18 146/65 96 01/16/17 19:33 98.1 F 55 16 134/41 96 01/16/17 15:14 98 F 63 18 108/52 98 01/16/17 11:06 97.5 F L 74 16 104/51 100 Intake and Output 01/16/17 01/17/17 01/17/17 23:59 07:59 15:59 Intake Total 100 / 100 220 / 220 Output Total 350 / 350 500 / 500 Balance -250 / -250 -500 / -500 220 / 220 Intake: Oral 100 / 100 220 / 220 Output: Urine 350 / 350 500 / 500 Other: Meal Breakfast Percent of Meal Consumed 90% Weight 81.1 kg Patient Weight 01/17/17 23:59 Weight 81.1 kg - General Appearance Exam: General appearance: Present: appears started age, chronically ill, fatigue, frail EENT: Present: ATNC, PERRL, mucous membranes moist Neck: Present: supple Respiratory: Present: clear Cardiology: Present: S3 gallop, edema, regular rate, normal S1, normal S2 Gastrointestinal: Present: normoactive bowel sounds, no tenderness, no guarding Integumentary: Present: warm and dry Neurologic: Present: no asterixis, alert and oriented x3 Musculoskeletal: Present: no deformities, no erythema, no cyanosis Psychiatric: Present: mood/affect appropriate, cooperative - Lab 01/16/17 06:35 01/17/17 07:52 Most recent lab results Calcium 9.3 mg/dL (8.6-10.8) 01/17/17 07:52 Phosphorus 3.5 mg/dL (2.3-4.7) 01/16/17 06:35 Magnesium 1.6 mg/dL (1.6-2.6) 01/16/17 06:35 Urine Sodium 61.0 mEq/L 01/13/17 12:08 Consult Discharge Plan - Plan Referrals: Paola Rushing, MECHANICAL APPLICATIONS ENGINEER [Primary Care Provider] - 01/26/17 9:20 am ()
--- NOTE | 2017-01-17 12:07 | Internal Med Progress Note ---
Date of Encounter: 01/17/17 Time of Encounter: 12:02 - Assessment and plan (1) Hyponatremia Current Visit: No Status: Acute Assessment and plan: being followed by renal. sodium level at 127 today. possible 2/2 hypervolemic hyponatremia given cirrhosis with ascitis and b/l leg edema dose of lasix has been increased by renal and also the spironolactone,plan to continue 1 more day of IV lasix today, management as per renal no change in mental status, appreciate renal recommendations. (2) Cirrhosis Current Visit: No Status: Chronic Assessment and plan: has mild to moderate ascitis, lfts within normal range. added spironolactone, no need for paracentesis at this time. Qualifiers: Hepatic cirrhosis type: unspecified hepatic cirrhosis Ascites presence: with ascites Qualified Code(s): K74.60 - Unspecified cirrhosis of liver (3) Atrial fibrillation, permanent Current Visit: No Status: Chronic Assessment and plan: We will continue with metoprolol-he does have a pacemaker-not on any ant coagulation patient has a history of frequent falls- we will place on baby aspirin daily (4) CAD (coronary artery disease) Current Visit: No Status: Chronic Assessment and plan: we will continue with metoprolol and statin Imdur baby aspirin lisinopril Qualifiers: Coronary Disease-Associated Artery/Lesion type: bypass graft [place] vs. 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 We will continue with Lasix and will add spironolactone, it appears that he was taken off metolazone due to dehydration by renal on his last hospital admission. 2 monitor intake output daily weights 3 1500 mL fluid restriction 4 low-sodium diet Qualifiers: Congestive heart failure type: combined Congestive heart failure chronicity : chronic Qualified Code(s): I50.42 - Chronic combined systolic (congestive) and diastolic (congestive) heart failure (6) CKD (chronic kidney disease), stage IV Current Visit: No Status: Chronic Assessment and plan: renal fxn seems to be at baseline. will continue to monitor. renal is on board. - Subjective Interval history: patient was seen at the bedside, denies any complaints. lying on bed in no disress he is admitted for hyponatremia which seems to be acute on chronic. renal following, josé manuel has HH nurse and PT. - Constitutional Vitals: Temp Pulse Resp BP Pulse Ox 97.6 F 88 16 102/53 98 01/17/17 11:06 01/17/17 11:06 01/17/17 11:06 01/17/17 11:06 01/17/17 11:06 General appearance: Present: A&O X 3 Exam: neck-supple chest- b/l clear, no added sounds CVS- s1 and s2, no m.r/g abd- soft, non tender, bs are present ext- minnie devin Internal Medicine: Result - Labs CBC & Chem 7: 01/16/17 06:35 01/17/17 07:52 Labs: BMP 01/17/17 07:52 Sodium 127 L Potassium 3.6 Chloride 90 L Carbon Dioxide 26 BUN 85 H Creatinine 2.41 H Glucose 96 Calcium 9.3 - ABG Interpretation ABG results: PT/INR, D-dimer PT 14.2 Seconds (9.4-12.1) H 01/13/17 10:36 - VTE Documentation of Mechanical Device: Graduated compression elastic hosiery Consult Discharge Plan - Plan Referrals: Paola Rushing, ASSISTANT COUNTY ATTORNEY [Primary Care Provider] - 01/26/17 9:20 am ()
[2017-01-17] MEDS: Gabapentin 300 MG CAPSULE PO SCH (21:14)
[2017-01-18] MEDS: Acetaminophen 325 MG TABLET PO PRN (03:27)
[2017-01-18 05:29] LABS: Potassium 4.2 mEq/L (3.5-4.5)
[2017-01-18 05:51] LABS: Thyroid Stimulating Hormone 3.063 mcIU/mL (0.350-4.840)
--- NOTE | 2017-01-18 08:31 | Nephrology Progress Note ---
Date of Encounter: 01/18/17 Time of Encounter: 09:10 - Assessment and Plan (1) Hyponatremia Current Visit: Yes Status: Acute SCr slightly rising but as expected with the enhanced diuretics. However the acute on chronic hyponatremia has not improved. To better help correct the hyponatremia will decrease the diuretics (change the lasix back to oral) but start Tolvaptan to help augment a free water diuresis. Goal correction for the hyponatremia is about 6-8 mEq in the next 24 hr. Before he can be discharged, I also recommend that he should have about 24-36hr of oral diuretics with lab monitoring and I/Os monitor to ensure that he can safely tolerate oral diuretic. Nevertheless, today he still has indications for Lasix IV. SCr is relatively stable. Continue to follow a renal protective strategy by avoiding any concomitant nephrotoxins. Thank you. (2) Anasarca Current Visit: No Status: Acute (3) CKD (chronic kidney disease) stage 4, GFR 15-29 ml/min Current Visit: No Status: Acute (4) Debility Current Visit: No Status: Acute (5) Hypokalemia Current Visit: No Status: Acute (6) Generalized weakness Current Visit: Yes Status: Acute Subjective Principal diagnosis: hyponatremia Interval history: Pt was s/e and did not affirm N/V/D or other major complaints. He did report sleeping poorly last night, but he could not relate as to why he slept poorly. Denied severe new pain or loud noises last night (I'll defer sleep mgt to the primary team). Objective - Vital Signs Vital signs: Vital Signs Temp Pulse Resp BP Pulse Ox 01/18/17 08:03 98.2 F 75 16 100/53 97 01/18/17 03:19 97.8 F 60 16 107/58 96 01/17/17 23:00 97.7 F 62 16 104/54 96 01/17/17 19:26 97.7 F 77 16 108/41 97 01/17/17 16:52 97.4 F L 77 16 126/56 98 01/17/17 12:54 99/48 01/17/17 11:06 97.6 F 88 16 102/53 98 01/17/17 08:41 64 118/49 Intake and Output 01/17/17 01/18/17 01/18/17 23:59 07:59 15:59 Output Total 300 / 300 Balance -300 / -300 Output: Urine 300 / 300 Other: Meal Dinner Percent of Meal Consumed 100% Weight 80.5 kg Patient Weight 01/18/17 23:59 Weight 80.5 kg - General Appearance Exam: General appearance: Present: appears started age, chronically ill, fatigue, frail EENT: Present: ATNC, PERRL, mucous membranes moist Neck: Present: supple Respiratory: Present: clear Cardiology: Present: S3 gallop, edema is improving only trace to LE and no edema of hands, regular rate, normal S1, normal S2 Gastrointestinal: Present: normoactive bowel sounds, no tenderness, no guarding Integumentary: Present: warm and dry Neurologic: Present: no asterixis, alert and oriented x3 Musculoskeletal: Present: no deformities, no erythema, no cyanosis Psychiatric: Present: mood/affect appropriate, cooperative - Lab 01/16/17 06:35 01/18/17 04:59 Most recent lab results Calcium 9.0 mg/dL (8.6-10.8) 01/18/17 04:59 Phosphorus 3.5 mg/dL (2.3-4.7) 01/16/17 06:35 Magnesium 1.6 mg/dL (1.6-2.6) 01/16/17 06:35 Urine Sodium 61.0 mEq/L 01/13/17 12:08 - VTE Documentation of Mechanical Device: Graduated compression elastic hosiery Consult Discharge Plan - Plan Referrals: Paola Rushing, VICTORINA [Primary Care Provider] - 01/26/17 9:20 am ()
[2017-01-18] MEDS ORDERED: Tolvaptan 15 MG TABLET PO ONE (08:33)
[2017-01-18] MEDS: Lactulose Oral Soln 20 GM/30 ML UDC PO SCH ×2 (08:38→21:13)
[2017-01-18] MEDS: amLODIPine 5 MG TABLET PO SCH (08:39)
[2017-01-18] MEDS: Aspirin Enteric Coated 81 MG Tablet PO SCH (08:39)
[2017-01-18] MEDS: Isosorbide MONOnitrate (24 HR) 30 MG TAB.ER.24H PO SCH (08:39)
[2017-01-18] MEDS: Fluticasone Propionate Nasal 50 MCG/SPRAY BOTTLE NS SCH (08:50)
[2017-01-18] MEDS: Furosemide 40 MG/4 ML VIAL IVP SCH (08:53)
[2017-01-18] MEDS: Furosemide 40 MG TABLET PO SCH (15:50)
--- NOTE | 2017-01-18 16:46 | Internal Med Progress Note ---
Date of Encounter: 01/18/17 Time of Encounter: 16:43 - Assessment and plan (1) Hyponatremia Current Visit: No Status: Acute Assessment and plan: being followed by renal. sodium level at 128 today. possible 2/2 hypervolemic hyponatremia given cirrhosis with ascitis and b/l leg edema plan to continue IV lasix today, management as per renal no change in mental status, appreciate renal recommendations. (2) Cirrhosis Current Visit: No Status: Chronic Assessment and plan: has mild to moderate ascitis, lfts within normal range. added spironolactone, no need for paracentesis at this time. Qualifiers: Hepatic cirrhosis type: unspecified hepatic cirrhosis Ascites presence: with ascites Qualified Code(s): K74.60 - Unspecified cirrhosis of liver (3) Atrial fibrillation, permanent Current Visit: No Status: Chronic Assessment and plan: We will continue with metoprolol-he does have a pacemaker-not on any ant coagulation patient has a history of frequent falls- we will place on baby aspirin daily (4) CAD (coronary artery disease) Current Visit: No Status: Chronic Assessment and plan: we will continue with metoprolol and statin Imdur baby aspirin lisinopril Qualifiers: Coronary Disease-Associated Artery/Lesion type: bypass graft [place] vs. 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 We will continue with Lasix and will add spironolactone, it appears that he was taken off metolazone due to dehydration by renal on his last hospital admission. 2 monitor intake output daily weights 3 1500 mL fluid restriction 4 low-sodium diet Qualifiers: Congestive heart failure type: combined Congestive heart failure chronicity : chronic Qualified Code(s): I50.42 - Chronic combined systolic (congestive) and diastolic (congestive) heart failure (6) CKD (chronic kidney disease), stage IV Current Visit: No Status: Chronic Assessment and plan: renal fxn seems to be at baseline. will continue to monitor. renal is on board. - Subjective Interval history: patient was seen at the bedside, denies any complaints. lying on bed in no disress he is admitted for hyponatremia which seems to be acute on chronic. renal following, josé manuel has HH nurse and PT. - Constitutional Vitals: Temp Pulse Resp BP Pulse Ox 98.2 F 59 16 103/49 95 01/18/17 16:04 01/18/17 16:04 01/18/17 16:04 01/18/17 16:04 01/18/17 16:04 General appearance: Present: A&O X 3 Exam: neck- supple chest- b/l clear, no added sounds CVs-s1 and s2, no mr//g abd- soft, non tender, bs are present ext- no edema neuro- no focal defecits, awake and alert . Internal Medicine: Result - Labs CBC & Chem 7: 01/16/17 06:35 01/18/17 15:10 Labs: BMP 01/18/17 01/18/17 04:59 15:10 Sodium 126 L 128 L Potassium 4.2 Chloride 90 L Carbon Dioxide 28 BUN 88 H Creatinine 2.70 H Glucose 93 Calcium 9.0 - ABG Interpretation ABG results: PT/INR, D-dimer PT 14.2 Seconds (9.4-12.1) H 01/13/17 10:36 - VTE Documentation of Mechanical Device: Graduated compression elastic hosiery Consult Discharge Plan - Plan Referrals: Paola Rushing, VICTORINA [Primary Care Provider] - 01/26/17 9:20 am ()
[2017-01-18] MEDS: Gabapentin 300 MG CAPSULE PO SCH (21:12)
[2017-01-19 05:02] LABS: Potassium 4.7 mEq/L (3.5-4.5)
[2017-01-19] MEDS: Lactulose Oral Soln 20 GM/30 ML UDC PO SCH (08:47)
[2017-01-19] MEDS: Aspirin Enteric Coated 81 MG Tablet PO SCH (08:47)
[2017-01-19] MEDS: Furosemide 40 MG TABLET PO SCH ×2 (08:47→17:27)
[2017-01-19] MEDS: Fluticasone Propionate Nasal 50 MCG/SPRAY BOTTLE NS SCH (08:48)
[2017-01-19] MEDS: amLODIPine 5 MG TABLET PO SCH (08:48)
[2017-01-19] MEDS: Isosorbide MONOnitrate (24 HR) 30 MG TAB.ER.24H PO SCH (08:48)
--- NOTE | 2017-01-19 13:59 | Nephrology Progress Note ---
Date of Encounter: 01/19/17 Time of Encounter: 08:00 - Assessment and Plan (1) Hyponatremia Current Visit: Yes Status: Acute His Hyponatremia is near his baseline, and his volume status is much improved S/p Tolvaptan x1 but with little improvement. Since he has chronic hyponatremia , I am satisfied that he's improved back to baseline CKD stage III, his baseline fluctuates. He is back on oral diuretics as well. Continue to follow a renal protective strategy by avoiding any concomitant nephrotoxins. Thank you. (2) Anasarca Current Visit: No Status: Acute Much improved (3) CKD (chronic kidney disease) stage 4, GFR 15-29 ml/min Current Visit: No Status: Acute (4) Debility Current Visit: No Status: Acute (5) Hypokalemia Current Visit: No Status: Acute (6) Generalized weakness Current Visit: Yes Status: Acute Subjective Principal diagnosis: hyponatremia Interval history: Pt was s/e and did not affirm N/V/D or other major complaints. Sitting in the bedside chair, eating breakfast. Objective - Vital Signs Vital signs: Vital Signs Temp Pulse Resp BP Pulse Ox 01/19/17 11:14 98.0 F 65 16 105/58 01/19/17 06:46 98.2 F 65 16 106/48 95 01/19/17 05:20 97.8 F 60 20 115/53 95 01/19/17 00:29 98.1 F 60 18 103/54 94 01/18/17 19:24 98.1 F 63 16 104/62 96 01/18/17 16:04 98.2 F 59 16 103/49 95 Intake and Output 01/18/17 01/19/17 01/19/17 23:59 07:59 15:59 Intake Total 120 / 120 0 / 0 600 / 600 Output Total 200 / 200 Balance 120 / 120 0 / 0 400 / 400 Intake: Oral 120 / 120 0 / 0 600 / 600 Output: Urine 200 / 200 Other: Meal Dinner Lunch Percent of Meal Consumed 100% 100% Stool Size Large Moderate Stool Consistency liquid liquid Stool Color Brown Brown # Voids 1 1 # Bowel Movements 1 Weight 75.75 kg Patient Weight 01/19/17 23:59 Weight 75.75 kg - General Appearance General appearance: Present: well-developed, well-nourished, appears started age , chronically ill, frail EENT: Present: ATNC, PERRL, mucous membranes moist Neck: Present: supple Respiratory: Present: clear Cardiology: Present: edema (trace ankle (improved) b/l), normal S1, normal S2 Gastrointestinal: Present: normoactive bowel sounds, no tenderness, obese Integumentary: Present: warm and dry Neurologic: Present: no focal deficit, no asterixis Musculoskeletal: Present: no deformities, no erythema, no cyanosis Psychiatric: Present: mood/affect appropriate, cooperative - Lab 01/16/17 06:35 01/19/17 04:13 Most recent lab results Calcium 9.0 mg/dL (8.6-10.8) 01/19/17 04:13 Phosphorus 3.5 mg/dL (2.3-4.7) 01/16/17 06:35 Magnesium 1.6 mg/dL (1.6-2.6) 01/16/17 06:35 Urine Sodium 61.0 mEq/L 01/13/17 12:08 - VTE Documentation of Mechanical Device: Graduated compression elastic hosiery Consult Discharge Plan - Plan Referrals: Paola Rushing, TOURIST ADVISER [Primary Care Provider] - 01/26/17 9:20 am ()
--- NOTE | 2017-01-19 15:08 | Discharge Summary ---
Date of Encounter: 01/19/17 Time of Encounter: 15:05 - Discharge Diagnosis (1) Hyponatremia Priority: Primary Status: Acute (2) Cirrhosis Priority: Secondary Status: Chronic Qualifiers: Hepatic cirrhosis type: unspecified hepatic cirrhosis Ascites presence: with ascites Qualified Code(s): K74.60 - Unspecified cirrhosis of liver (3) Atrial fibrillation, permanent Priority: Secondary Status: Chronic (4) CAD (coronary artery disease) Priority: Secondary Status: Chronic Qualifiers: Coronary Disease-Associated Artery/Lesion type: bypass graft [place] vs. 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) , unspecified, with other forms of angina pectoris (5) Congestive heart failure Priority: Secondary Status: Chronic Qualifiers: Congestive heart failure type: combined Congestive heart failure chronicity : chronic Qualified Code(s): I50.42 - Chronic combined systolic (congestive) and diastolic (congestive) heart failure (6) CKD (chronic kidney disease), stage IV Priority: Secondary Status: Chronic - Discharge Medications Prescriptions: Furosemide [Lasix] 40 mg PO BIDDIURETIC 30 Days Spironolactone [Aldactone] 50 mg PO BID 30 Days Home Medications: Atorvastatin [Lipitor] 40 mg PO HS 06/08/15 [History] Gabapentin [Neurontin] 600 mg PO HS 06/08/15 [History] Garlic 1,000 mg PO DAILY 06/08/15 [History] Loratadine [Claritin] 10 mg PO DAILY PRN 06/08/15 [History] Metoprolol [Lopressor] 50 mg PO BID 06/08/15 [History] Multivitamin [Flintstones] 1 each PO DAILY 06/08/15 [History] [place]-3S/Dha/Epa/Fish Oil [Fish Oil 1,200 mg Softgel] 1 each PO DAILY 06/08/15 [ History] Montelukast [Singulair] 10 mg PO HS 11/05/15 [History] Fluticasone Propionate Nasal [Flonase] 50 mcg NS DAILY 11/09/15 [History] Latanoprost 1 drop BOTH EYES HS 11/28/15 [History] Amlodipine Besylate 10 mg PO DAILY 06/12/16 [History] hydrOXYzine HCl [Hydroxyzine HCl] 25 mg PO Q8H PRN 06/12/16 [History] Ferrous Sulfate 325 mg PO BID #60 tablet 07/30/16 [Rx] Potassium Chloride 10 meq PO BIDWM #20 tab.er.prt 08/06/16 [Rx] ALPRAZolam [Xanax 0.5 MG Tablet] 0.5 mg PO BID PRN 10/12/16 [History] Calcium Carbonate/Vitamin D3 [Calcium 600 + Vit D Tablet] 1 each PO TID [History] Ipratropium/Albuterol Neb [Duoneb] 3 ml IH Q6H PRN 10/12/16 [History] Isosorbide MONOnitrate (24 HR) [Imdur] 30 mg PO DAILY 12/03/16 [History] Lactulose 20 gm PO BID 12/03/16 [History] Lisinopril [Zestril] 5 mg PO DAILY 12/03/16 [History] metOLazone [Zaroxolyn] 2.5 mg PO DAILY PRN #0 12/09/16 [Rx] Furosemide [Lasix] 40 mg PO BIDDIURETIC 30 Days 01/19/17 [Rx] Spironolactone [Aldactone] 50 mg PO BID 30 Days 01/19/17 [Rx] Allergies/Adverse Reactions: Allergies clopidogrel [From Plavix] Allergy (Verified 12/03/16 19:46) Itching Cortisone Allergy (Verified 12/03/16 19:46) Joint Pain Date of admission: 01/13/17 12:00 Primary care physician: Paola Rushing CNP Consults: 01/13/17 13:54 Consult to Physical Therapy [CONS] Routine Comment: Evaluate, develop and implement POC Reason for Consult: unsteady gait Consult to Nursing Home Assistant [CONS] Routine Reason for SW Consult: discharge planning Discharging clinician: Cesar Douglas Anticipated date of discharge: 01/19/17 - Patient Status Disposition: Home Health Service Condition: Fair Functional capacity at discharge: uses cane/walker Overall status at discharge: patient is back to baseline - Discharge Instructions Instructions: Heart Failure (DC), Urinary Tract Infection in Men (DC) Follow Up With: Paola Rushing CNP [Primary Care Provider] - 01/26/17 9:20 am () - Diet and Activity Activity: as per physical therapy Diet: advance to your usual diet Interval History: Mr. King is an 86 -year-old man known to [facility] kidney specialist. He was seen last month for hyponatremia. He was returns to [facility] for evaluation of increased weight gain and was found to have hyponatremia and nephrology was called to assist with management of hyponatremia. he follows with who was c onsulted for further management of his hyponatremia. Acute on chronic hypervolemic hyponatremia from anasarca from cirrhosis. his mental status was at baseline though he was lethargic on presentation. he was tretaed with Iv diuretics and his sodium improved to 127 ,he was given one dose of tolvaptan. he made good urine output and the ansarca seems to have improved, as per nephrology he is at his baseline and not in volume overload at this time. spironolactone was added to his home meds, he is being dc home with HH at this time in stable condition. he will f/u with DR. Owen as OP. Hospital course: Mr. King is a 86 year old male - Time Spent with Patient Total time spent providing and/or coordinating discharge services: - Constitutional Vitals: Temp Pulse Resp BP Pulse Ox 98.0 F 65 16 105/58 95 01/19/17 11:14 01/19/17 11:14 01/19/17 11:14 01/19/17 11:14 01/19/17 06:46 General appearance: Present: A&O X 3 Exam: EENT: Present: ATNC, PERRL, mucous membranes moist Neck: Present: supple Respiratory: Present: clear Cardiology: Present: S3 gallop, edema, regular rate, normal S1, normal S2 Gastrointestinal: Present: normoactive bowel sounds, no tenderness, no guarding Integumentary: Present: warm and dry Neurologic: Present: no asterixis, alert and oriented x3 Musculoskeletal: Present: no deformities, no erythema, no cyanosis Psychiatric: Present: mood/affect appropriate, cooperative - VTE Documentation of Mechanical Device: Graduated compression elastic hosiery
--- NOTE | 2017-01-19 15:09 | Physician Discharge Referral ---
Home Health/Hosp Referral Info Transfer to: Home Health Attending Provider: lin galicia - Diagnosis (1) Hyponatremia Status: Acute (2) Cirrhosis Status: Chronic (3) Atrial fibrillation, permanent Status: Chronic (4) CAD (coronary artery disease) Status: Chronic (5) Congestive heart failure Status: Chronic (6) CKD (chronic kidney disease), stage IV Status: Chronic - Respiratory Orders Smoking Cessation: Smoking cessation has been advised. For more information, call the [employer] Tobacco Quit Line at 2-182-KRZQ-NOW. - Diet/Nutrition Diet/Nutrition Orders: Regular - Activity Activity Orders: Ambulate, Chair - Services Needed Following services are medically necessary services: Nursing, Home Health Aide, Physical Therapy, Occupational Therapy - Transfer Medications Prescriptions: Furosemide [Lasix] 40 mg PO BIDDIURETIC 30 Days Spironolactone [Aldactone] 50 mg PO BID 30 Days Home Medications: Atorvastatin [Lipitor] 40 mg PO HS 06/08/15 [History] Gabapentin [Neurontin] 600 mg PO HS 06/08/15 [History] Garlic 1,000 mg PO DAILY 06/08/15 [History] Loratadine [Claritin] 10 mg PO DAILY PRN 06/08/15 [History] Metoprolol [Lopressor] 50 mg PO BID 06/08/15 [History] Multivitamin [Flintstones] 1 each PO DAILY 06/08/15 [History] [place]-3S/Dha/Epa/Fish Oil [Fish Oil 1,200 mg Softgel] 1 each PO DAILY 06/08/15 [ History] Montelukast [Singulair] 10 mg PO HS 11/05/15 [History] Fluticasone Propionate Nasal [Flonase] 50 mcg NS DAILY 11/09/15 [History] Latanoprost 1 drop BOTH EYES HS 11/28/15 [History] Amlodipine Besylate 10 mg PO DAILY 06/12/16 [History] hydrOXYzine HCl [Hydroxyzine HCl] 25 mg PO Q8H PRN 06/12/16 [History] Ferrous Sulfate 325 mg PO BID #60 tablet 07/30/16 [Rx] Potassium Chloride 10 meq PO BIDWM #20 tab.er.prt 08/06/16 [Rx] ALPRAZolam [Xanax 0.5 MG Tablet] 0.5 mg PO BID PRN 10/12/16 [History] Calcium Carbonate/Vitamin D3 [Calcium 600 + Vit D Tablet] 1 each PO TID [History] Ipratropium/Albuterol Neb [Duoneb] 3 ml IH Q6H PRN 10/12/16 [History] Isosorbide MONOnitrate (24 HR) [Imdur] 30 mg PO DAILY 12/03/16 [History] Lactulose 20 gm PO BID 12/03/16 [History] Lisinopril [Zestril] 5 mg PO DAILY 12/03/16 [History] metOLazone [Zaroxolyn] 2.5 mg PO DAILY PRN #0 12/09/16 [Rx] Furosemide [Lasix] 40 mg PO BIDDIURETIC 30 Days 01/19/17 [Rx] Spironolactone [Aldactone] 50 mg PO BID 30 Days 01/19/17 [Rx] Allergies/Adverse Reactions: Allergies clopidogrel [From Plavix] Allergy (Verified 12/03/16 19:46) Itching Cortisone Allergy (Verified 12/03/16 19:46) Joint Pain Certification: Further, I certify that my clinical findings support that this patient is homebound (i.e. absences from home require considerable and taxing effort and are for medical reasons or cheondoism services or infrequently or short duration when for other reasons) because: Homebound Reason: Patient requires assistance of a person or device to safely leave home Attestation: My signature below is to certify that this patient is under my care and that I, or nurse practitioner, or a physician's real estate administrative assistant working with me, has a face-to -face encounter with this patient.
[2017-01-19 15:51] VITALS: BP 94/41
== END 2017-01-19 18:15 | disposition home health service (06) ==
LOC: EMEROO 10:16 → 2ANU 10:16 → INTOOBSV 12:00 → 2ANU 12:44
PROVIDERS: ADMIT Internal Medicine; ATTEND Internal Medicine

== ENCOUNTER 2017-01-26 19:48 | Observation (INO) ==
[2017-01-26] MEDS ORDERED: 0.9 % Sodium Chloride 1,000 ML IVC ONE (22:28)
[2017-01-26 22:47] LABS: Basophils % 0.3 %; Eosinophils # 0.3 K/mcL (0.0-0.6); Eosinophils % 3.6 %; Hematocrit 30.2 % (37.5-50.1); Hemoglobin 10.4 g/dL (12.9-16.9); Immature Granulocytes % 0.3 % (0-4); Lymphocytes # 0.8 K/mcL (0.6-4.6); Lymphocytes % 11.1 %; Mean Corpuscular HGB Conc 34.4 g/dL (31.6-35.5); Mean Corpuscular Hemoglobin 31.5 pg (28.0-33.3); Mean Corpuscular Volume 91.5 fL (83.0-100.0); Mean Platelet Volume 11.1 fL (9.4-12.4); Monocytes # 0.6 K/mcL (0.0-1.3); Monocytes % 8.4 %; Neutrophils # 5.7 K/mcL (1.6-8.9); Platelet Count 164 K/mcL (140-400); Red Cell Distribution Width 15.4 % (11.5-14.5); Segmented Neutrophils % 76.3 %
[2017-01-26 22:53] LABS: INR 1.2; Prothrombin Time 13.5 Seconds (9.4-12.1)
[2017-01-26 22:56] LABS: Activated Partial Thrombo Time 35.5 Seconds (26.0-36.0)
[2017-01-26 23:01] LABS: Calcium 9.7 mg/dL (8.6-10.8); Potassium 4.4 mEq/L (3.5-4.5)
--- NOTE | 2017-01-26 23:38 | Emergency Department Note ---
Disposition Clinical Impression: Hyponatremia, CKD (chronic kidney disease), stage III, Elevated troponin Disposition: Admitted As Inpatient Condition: Fair Referrals: NO,PCP [Primary Care Provider] - Forms: ED Satisfaction Letter Recheck wound or abnormal lab - General Chief Complaint: ED Recheck/Abnormal Lab/Rx Stated Complaint: hyponatremia Time Seen by Provider: 01/26/17 22:25 Source: patient Mode of arrival: private vehicle Limitations: no limitations Nursing Notes Reviewed: Yes Vital Signs Reviewed: Yes - History of Present Illness Pt Subjective Complaint: abnormal lab(s) Initial Visit (ago): hour(s) Initial Visit For: other (re-check - recently discharged from hospital ) Returns Today for: other (sent in for eval of abnormal lab result) Description of Abnormal Result: hyponatremia Context: called for abnormal lab result Associated symptoms: other ("dizzy") Treatments prior to arrival: other medications (oral diuretics) - Related Data Home Medications Medication Instructions Recorded Confirmed Atorvastatin [Lipitor] 40 mg PO HS 06/08/15 01/13/17 Gabapentin [Neurontin] 600 mg PO HS 06/08/15 01/13/17 Garlic 1,000 mg PO DAILY 06/08/15 01/13/17 Loratadine [Claritin] 10 mg PO DAILY PRN 06/08/15 01/13/17 Metoprolol [Lopressor] 50 mg PO BID 06/08/15 01/13/17 Multivitamin [Flintstones] 1 each PO DAILY 06/08/15 01/13/17 [place]-3S/Dha/Epa/Fish Oil [Fish 1 each PO DAILY 06/08/15 01/13/17 Oil 1,200 mg Softgel] Montelukast [Singulair] 10 mg PO HS 11/05/15 01/13/17 Fluticasone Propionate Nasal 50 mcg NS DAILY 11/09/15 01/13/17 [Flonase] Latanoprost 1 drop BOTH EYES HS 11/28/15 01/13/17 Amlodipine Besylate 10 mg PO DAILY 06/12/16 01/13/17 hydrOXYzine HCl [Hydroxyzine HCl] 25 mg PO Q8H PRN 06/12/16 01/13/17 ALPRAZolam [Xanax 0.5 MG Tablet] 0.5 mg PO BID PRN 10/12/16 01/13/17 Calcium Carbonate/Vitamin D3 1 each PO TID 10/12/16 01/13/17 [Calcium 600 + Vit D Tablet] Ipratropium/Albuterol Neb [Duoneb] 3 ml IH Q6H PRN 10/12/16 01/13/17 Isosorbide MONOnitrate (24 HR) 30 mg PO DAILY 12/03/16 01/13/17 [Imdur] Lactulose 20 gm PO BID 12/03/16 01/13/17 Lisinopril [Zestril] 5 mg PO DAILY 12/03/16 01/13/17 Previous Rx's Medication Instructions Recorded Ferrous Sulfate 325 mg PO BID #60 tablet 07/30/16 Potassium Chloride 10 meq PO BIDWM #20 tab.er.prt 08/06/16 metOLazone [Zaroxolyn] 2.5 mg PO DAILY PRN #0 12/09/16 Furosemide [Lasix] 40 mg PO BIDDIURETIC 30 Days 01/19/17 Spironolactone [Aldactone] 50 mg PO BID 30 Days 01/19/17 Allergies Allergy/AdvReac Type Severity Reaction Status Date / Time clopidogrel [From Plavix] Allergy Itching Verified 12/03/16 19:46 Cortisone Allergy Joint Pain Verified 12/03/16 19:46 All systems ED: reviewed and negative except as stated. Constitutional: Denies: fever, chills, weakness, weight change Eyes: Reports: vision change ("Sometimes a little blurry") Cardiovascular: Denies: chest pain, palpitations, dyspnea on exertion, orthopnea , syncope Respiratory: Denies: cough, dyspnea, wheezes Gastrointestinal: Denies: abdominal pain, nausea, vomiting Musculoskeletal: Denies: back pain, joint swelling, arthralgia Hematological/Lymphatic: Denies: easy bleeding, easy bruising, lymphadenopathy Allergic/Immunologic: Denies: facial swelling Past Medical History - Past Medical History Medical history: Reports: atrial fibrillation, cirrhosis, CHF, coronary artery disease, hyperlipidemia, hypertension, myocardial infarction, peripheral artery disease, renal disease, other Surgical history: Reports: angioplasty/stent, carotid endarterectomy, coronary bypass (CABG), pacemaker/AICD, vascular surgery, other, pacemaker Psychiatric history: Reports: no psych history - Social History Smoking Status: Never smoker Smokeless Tobacco Status: No Alcohol use: Reports: none Drug use: Reports: none Physical Exam - General Limitations: no limitations General appearance: alert, in no apparent distress - Head Head exam: atraumatic, normocephalic, normal inspection - Eye Eye exam: Present: normal appearance, PERRL, EOMI. Absent: scleral icterus, conjunctival injection, periorbital swelling - ENT ENT exam: mucous membranes moist - Neck Neck exam: Present: normal inspection, full ROM, trachea midline. Absent: meningismus - Chest Chest inspection: Present: normal inspection - Respiratory Respiratory exam: Present: normal lung sounds bilaterally. Absent: respiratory distress, wheezes - Cardiovascular Cardiovascular exam: Present: regular rate, normal rhythm, systolic murmur - Abdominal Exam Abdominal exam: Present: soft, Non-Tender. Absent: distention, guarding, rebound, rigidity - Extremities Exam Extremities exam: Present: normal capillary refill, pedal edema. Absent: tenderness - Neurological Exam Neurological exam: Present: alert, oriented X3, CN II-XII intact - Psychiatric Psychiatric exam: Present: normal mood, flat affect - Skin Skin exam: Present: warm, dry, intact, normal color Course Course Narrative: Patient presents from home for evaluation of abnormal lab. He was seen by his PCP for dizziness and had labs drawn. He was called and told that his sodium was low and that he needed to come back to the hospital. He was recently admitted here for hyponatremia second to hypervolemia from anasarca due to cirrhosis. He was treated with diuretics and returned to baseline hyponatremic state, at which time he was discharged to home. He complains of feeling a little dizzy and states that sometimes his vision a little blurry. He also has swelling of the lower extremities, which he describes as nothing new. He denies any other complaints. He specifically denies chest pain, shortness of breath, trouble breathing, syncope, vertigo, headache, fever, chills, nausea, vomiting or diarrhea. Patient's labs show hyponatremia, stable renal insufficiency and stable mildly elevated troponin. EKG shows a paced rhythm. Case has been discussed with Dr. Criss rojas. She has seen the patient and agrees with the assessment and plan. Hospitalist has been contacted for admission of the patient. Hospitalist has accepted the patient for admission. Vital Signs Temperature 98.4 F 01/26/17 19:52 Pulse Rate 74 01/26/17 19:52 Respiratory Rate 18 01/26/17 19:52 Blood Pressure 109/61 01/26/17 19:52 O2 Sat by Pulse Oximetry 98 01/26/17 19:52 Temperature 98.4 F 01/26/17 19:52 Pulse Rate 74 01/26/17 19:52 Respiratory Rate 18 01/26/17 19:52 Blood Pressure 109/61 01/26/17 19:52 O2 Sat by Pulse Oximetry 98 01/26/17 19:52 Oxygen Delivery Oxygen Delivery Room Air Recheck wound or abnormal lab - Medical Records Medical records reviewed: Yes I reviewed the patient's medical records. - Lab Data Lab results reviewed: Yes I reviewed the patient's lab results. Lab results narrative: Laboratory Last Values WBC 7.5 K/mcL (4.3-11.1) 01/26/17 22:41 RBC 3.30 M/mcL (4.19-5.50) L 01/26/17 22:41 Hgb 10.4 g/dL (12.9-16.9) L 01/26/17 22:41 Hct 30.2 % (37.5-50.1) L 01/26/17 22:41 MCV 91.5 fL (83.0-100.0) 01/26/17 22:41 MCH 31.5 pg (28.0-33.3) 01/26/17 22:41 MCHC 34.4 g/dL (31.6-35.5) 01/26/17 22:41 RDW 15.4 % (11.5-14.5) H 01/26/17 22:41 Plt Count 164 K/mcL (140-400) 01/26/17 22:41 MPV 11.1 fL (9.4-12.4) 01/26/17 22:41 Immature Gran % 0.3 % (0-4) 01/26/17 22:41 Seg Neutrophils % 76.3 % 01/26/17 22:41 Lymphocytes % 11.1 % 01/26/17 22:41 Monocytes % 8.4 % 01/26/17 22:41 Eosinophils % 3.6 % 01/26/17 22:41 Basophils % 0.3 % 01/26/17 22:41 Neutrophils # 5.7 K/mcL (1.6-8.9) 01/26/17 22:41 Lymphocytes # 0.8 K/mcL (0.6-4.6) 01/26/17 22:41 Monocytes # 0.6 K/mcL (0.0-1.3) 01/26/17 22:41 Eosinophils # 0.3 K/mcL (0.0-0.6) 01/26/17 22:41 Basophils # 0.0 K/mcL (0.0-0.2) 01/26/17 22:41 PT 13.5 Seconds (9.4-12.1) H 01/26/17 22:41 INR 1.2 01/26/17 22:41 APTT 35.5 Seconds (26.0-36.0) 01/26/17 22:41 Sodium 123 mEq/L (136-145) L 01/26/17 22:41 Potassium 4.4 mEq/L (3.5-4.5) 01/26/17 22:41 Chloride 88 mEq/L (98-109) L 01/26/17 22:41 Carbon Dioxide 25 mEq/L (19-29) 01/26/17 22:41 BUN 113 mg/dL (8-26) H 01/26/17 22:41 Creatinine 2.64 mg/dL (0.72-1.25) H 01/26/17 22:41 Est GFR ( Amer) 28 (> 60) L 01/26/17 22:41 Est GFR (Non-Af Amer) 23 (> 60) L 01/26/17 22:41 BUN/Creatinine Ratio 43 (6-26) H 01/26/17 22:41 Glucose 110 mg/dL (70-99) H 01/26/17 22:41 Calculated Osmolality 292 (280-300) 01/26/17 22:41 Calcium 9.7 mg/dL (8.6-10.8) 01/26/17 22:41 Magnesium 2.3 mg/dL (1.6-2.6) 01/26/17 22:41 Troponin I 0.05 ng/mL (0-0.03) H* 01/26/17 22:41 Result diagrams: 01/26/17 22:41 01/26/17 22:41 Lab Results 01/26/17 01/26/17 01/26/17 Range/Units 22:41 22:41 22:41 WBC 7.5 (4.3-11.1) K/mcL RBC 3.30 L (4.19-5.50) M/mcL Hgb 10.4 L (12.9-16.9) g/dL Hct 30.2 L (37.5-50.1) % MCV 91.5 (83.0-100.0) fL MCH 31.5 (28.0-33.3) pg MCHC 34.4 (31.6-35.5) g/dL RDW 15.4 H (11.5-14.5) % Plt Count 164 (140-400) K/mcL MPV 11.1 (9.4-12.4) fL Immature Gran % 0.3 (0-4) % Seg Neutrophils % 76.3 % Lymphocytes % 11.1 % Monocytes % 8.4 % Eosinophils % 3.6 % Basophils % 0.3 % Neutrophils # 5.7 (1.6-8.9) K/mcL Lymphocytes # 0.8 (0.6-4.6) K/mcL Monocytes # 0.6 (0.0-1.3) K/mcL Eosinophils # 0.3 (0.0-0.6) K/mcL Basophils # 0.0 (0.0-0.2) K/mcL PT 13.5 H (9.4-12.1) Seconds INR 1.2 APTT 35.5 (26.0-36.0) Seconds Sodium 123 L (136-145) mEq/L Potassium 4.4 (3.5-4.5) mEq/L Chloride 88 L (98-109) mEq/L Carbon Dioxide 25 (19-29) mEq/L BUN 113 H (8-26) mg/dL Creatinine 2.64 H (0.72-1.25) mg/dL Est GFR ( Amer) 28 L (> 60) Est GFR (Non-Af Amer) 23 L (> 60) BUN/Creatinine Ratio 43 H (6-26) Glucose 110 H (70-99) mg/dL Calculated Osmolality 292 (280-300) Calcium 9.7 (8.6-10.8) mg/dL Magnesium (1.6-2.6) mg/dL Troponin I (0-0.03) ng/mL 01/26/17 01/26/17 Range/Units 22:41 22:41 WBC (4.3-11.1) K/mcL RBC (4.19-5.50) M/mcL Hgb (12.9-16.9) g/dL Hct (37.5-50.1) % MCV (83.0-100.0) fL MCH (28.0-33.3) pg MCHC (31.6-35.5) g/dL RDW (11.5-14.5) % Plt Count (140-400) K/mcL MPV (9.4-12.4) fL Immature Gran % (0-4) % Seg Neutrophils % % Lymphocytes % % Monocytes % % Eosinophils % % Basophils % % Neutrophils # (1.6-8.9) K/mcL Lymphocytes # (0.6-4.6) K/mcL Monocytes # (0.0-1.3) K/mcL Eosinophils # (0.0-0.6) K/mcL Basophils # (0.0-0.2) K/mcL PT (9.4-12.1) Seconds INR APTT (26.0-36.0) Seconds Sodium (136-145) mEq/L Potassium (3.5-4.5) mEq/L Chloride (98-109) mEq/L Carbon Dioxide (19-29) mEq/L BUN (8-26) mg/dL Creatinine (0.72-1.25) mg/dL Est GFR ( Amer) (> 60) Est GFR (Non-Af Amer) (> 60) BUN/Creatinine Ratio (6-26) Glucose (70-99) mg/dL Calculated Osmolality (280-300) Calcium (8.6-10.8) mg/dL Magnesium 2.3 (1.6-2.6) mg/dL Troponin I 0.05 H* (0-0.03) ng/mL - EKG Data EKG attestation: Yes I reviewed and interpreted this EKG. EKG results narrative: paced rhythm, with a normal rate. Unchanged compared to previous
--- NOTE | 2017-01-27 01:03 | Internal Med History&Physical ---
Date of Encounter: 01/27/17 Time of Encounter: 01:01 Assessment and Plan (1) Hyponatremia Current visit: No Status: Acute Patient presents again with hyponatremia. This mild symptoms in the form of dizziness lethargy. Sodium is 123. I suspect that his hyponatremia is multifactorial due to liver cirrhosis causing an element of hypervolemic hyponatremia. All prior sodium levels were more than 20 and all prior osmolarity's with more than 100 raising suspicion for SIADH which may be another contributing limits. Nephrology team to see the patient. Patient mentioned that he has been compliant with Free water restriction. I will give the patient small dose of IV Lasix daily 20 mg. Follow sodium level every 4 hours. Avoid rapid correction of sodium. (2) Elevated troponin Current visit: No Status: Chronic Suspect NSTEMI type 2 due to demand ischemia. (3) CKD (chronic kidney disease) stage 4, GFR 15-29 ml/min Current visit: No Status: Chronic Stable. Internal Medicine - H&P: HPI Chief complaint: hyponatremia History of present illness: Mr. King is a 86 year old male patient with multiple medical problems including liver cirrhosis and chronic hyponatremia was sent to the hospital after ACP found his sodium to be on 23. Patient has a history of chronic hyponatremia which has been diagnosed as hypovolemic hyponatremia due to liver cirrhosis. Patient has been noticing that he is feeling dizzy generally weak lethargic nauseous. No noticeable seizure activity. No diarrhea. He is on a diuretic for generalized anasarca, related to his liver cirrhosis. Patient has been compliant with Free water restriction. Past Med Surg Social Fam HX - Past Medical History Medical history: atrial fibrillation, cirrhosis, CHF, coronary artery disease, hyperlipidemia, hypertension, myocardial infarction, peripheral artery disease, renal disease, other Psychiatric history: no psych history - Past Surgical History Surgical History: angioplasty/stent, carotid endarterectomy, coronary bypass ( CABG), pacemaker/AICD, vascular surgery, other, pacemaker - Social History Smoking Status: Never smoker Smokeless Tobacco Status: No Alcohol use: none Drug use: none - Family History Father Living Status: Hx Family Cardiac Disorders: Yes Hx Family Endocrine Disorder: Yes Internal Medicine - H&P: Meds Atorvastatin [Lipitor] 40 mg PO HS 06/08/15 [History] Gabapentin [Neurontin] 600 mg PO HS 06/08/15 [History] Garlic 1,000 mg PO DAILY 06/08/15 [History] Metoprolol [Lopressor] 50 mg PO BID 06/08/15 [History] Multivitamin [Flintstones] 1 each PO DAILY 06/08/15 [History] [place]-3S/Dha/Epa/Fish Oil [Fish Oil 1,200 mg Softgel] 1 each PO DAILY 06/08/15 [ History] Montelukast [Singulair] 10 mg PO HS 11/05/15 [History] Fluticasone Propionate Nasal [Flonase] 50 mcg NS DAILY 11/09/15 [History] Latanoprost 1 drop BOTH EYES HS 11/28/15 [History] Amlodipine Besylate 10 mg PO DAILY 06/12/16 [History] hydrOXYzine HCl [Hydroxyzine HCl] 25 mg PO Q8H PRN 06/12/16 [History] Ferrous Sulfate 325 mg PO BID #60 tablet 07/30/16 [Rx] Potassium Chloride 10 meq PO BIDWM #20 tab.er.prt 08/06/16 [Rx] Calcium Carbonate/Vitamin D3 [Calcium 600 + Vit D Tablet] 1 each PO TID [History] Ipratropium/Albuterol Neb [Duoneb] 3 ml IH Q6H PRN 10/12/16 [History] Isosorbide MONOnitrate (24 HR) [Imdur] 30 mg PO DAILY 12/03/16 [History] Lactulose 20 gm PO BID 12/03/16 [History] Lisinopril [Zestril] 5 mg PO DAILY 12/03/16 [History] metOLazone [Zaroxolyn] 2.5 mg PO DAILY PRN #0 12/09/16 [Rx] Furosemide [Lasix] 40 mg PO BIDDIURETIC 30 Days 01/19/17 [Rx] Allergies clopidogrel [From Plavix] Allergy (Verified 12/03/16 19:46) Itching Cortisone Allergy (Verified 12/03/16 19:46) Joint Pain All Systems PM: A 10-system review of systems was performed and is negative for pertinent findings except as documented above in the HPI. Review of systems: 10 point review systems is negative except for HPI - Constitutional Vitals: Temp Pulse Resp BP Pulse Ox 97.6 F 70 16 124/69 98 01/27/17 00:50 01/27/17 00:50 01/27/17 00:50 01/27/17 00:50 01/27/17 00:50 Exam: Gen.: patient is alert oriented times 3 cardiac: normal S1 S2 no additional sounds or murmurs chest: no active wheezing or bronchial breathing abdomen soft nontender nondistended normal bowel sounds lower extremity 1+ swelling. Neuro: no new focal deficits sacral edema Internal Med - H&P Results - Labs CBC & Chem 7: 01/26/17 22:41 01/26/17 22:41
[2017-01-27] MEDS: Furosemide 20 MG/2 ML VIAL IVP SCH ×2 (01:37→09:01)
[2017-01-27 06:04] LABS: Basophils % 0.2 %; Eosinophils # 0.2 K/mcL (0.0-0.6); Eosinophils % 3.2 %; Hematocrit 26.3 % (37.5-50.1); Hemoglobin 8.9 g/dL (12.9-16.9); Immature Granulocytes % 0.3 % (0-4); Lymphocytes # 0.9 K/mcL (0.6-4.6); Lymphocytes % 13.8 %; Mean Corpuscular HGB Conc 33.8 g/dL (31.6-35.5); Mean Corpuscular Hemoglobin 30.8 pg (28.0-33.3); Mean Platelet Volume 11.1 fL (9.4-12.4); Monocytes # 0.7 K/mcL (0.0-1.3); Neutrophils # 4.8 K/mcL (1.6-8.9); Platelet Count 132 K/mcL (140-400); Red Blood Count 2.89 M/mcL (4.19-5.50); Red Cell Distribution Width 15.2 % (11.5-14.5); Segmented Neutrophils % 72.5 %
[2017-01-27] MEDS: Lactulose Oral Soln 20 GM/30 ML UDC PO SCH ×2 (09:01→20:04)
[2017-01-27] MEDS: Isosorbide MONOnitrate (24 HR) 60 MG TAB.ER.24H PO SCH (09:01)
[2017-01-27] MEDS: (Fish Oil 1,200 Mg Softgel) PO SCH (09:02)
[2017-01-27] MEDS: Fluticasone Propionate Nasal 50 MCG/SPRAY BOTTLE NS SCH (09:02)
--- NOTE | 2017-01-27 09:10 | Nephrology Consult Note ---
<Leoenl Gramajo - Last Filed: 01/27/17 13:57> Date of Encounter: 01/27/17 Time of Encounter: 09:02 Assessment and Plan (1) Chronic hyponatremia Status: Acute hx of chronic hyponatremia in setting of cirrhosis, CHF, CKD chronic hypervolemic hypotonic hyponatremia Pedal edema 2+ Baseline sodium is 127. Denies dizziness alert oriented x 3 Plan: Patient has multiple admissions for hyponatremia in the past, however at this point his sodium is close to baseline. Patient has been started on 20mg lasix and fluid restricted diet/regular diet. At this point no additional intervention is needed. Repeat BMP tomorrow. Serum Uric acid pending. (2) CKD (chronic kidney disease) stage 4, GFR 15-29 ml/min Status: Acute hx of CKD stage 4 Patients GFR fluctuates greatly however currently he is at baseline UOP last 24 hours is 850cc Denies urinary symptoms. BP stable Plan: renal diet. continue lasix Renal protective and conservative theraphy Continue lisinopril for renoprotection urine protein/creatinine ratio avoid nephrotoxins: NSAIDs and contrast. Strict I/Os History of Present Illness - Reason for Consult Consult date: 01/27/17 Chronic Kidney Disease, hyponatremia Requesting physician: Yon Morales - Chief Complaint hyponatremia - History of Present Illness 86 y/o male with hx of chornic hyponatremia, cirrhosis, chf, CKD presents after he was found to have sodium of 123 outpatient. Patient has been hospitalized in the past year for the same reason. Patient did state feeling dizzy and nausea. Denies vomiting, diarrhea, hematuria, dysuria, melena, hematochezia. Patient is followed by [facility]. Past Med Surg Social Fam HX - Past Medical History Medical history: atrial fibrillation, cirrhosis, CHF, coronary artery disease, hyperlipidemia, hypertension, myocardial infarction, peripheral artery disease, renal disease, other Psychiatric history: no psych history - Past Surgical History Surgical History: angioplasty/stent, carotid endarterectomy, coronary bypass ( CABG), pacemaker/AICD, vascular surgery, other, pacemaker - Social History Smoking Status: Never smoker Smokeless Tobacco Status: No Alcohol use: none Drug use: none - Family History Father Living Status: Hx Family Cardiac Disorders: Yes Hx Family Endocrine Disorder: Yes Medications and Allergies Atorvastatin [Lipitor] 40 mg PO HS 06/08/15 [History] Gabapentin [Neurontin] 600 mg PO HS 06/08/15 [History] Garlic 1,000 mg PO DAILY 06/08/15 [History] Metoprolol [Lopressor] 50 mg PO BID 06/08/15 [History] Multivitamin [Flintstones] 1 tab PO DAILY 06/08/15 [History] [place]-3S/Dha/Epa/Fish Oil [Fish Oil 1,200 mg Softgel] 1 cap PO DAILY 06/08/15 [ History] Montelukast [Singulair] 10 mg PO HS 11/05/15 [History] Fluticasone Propionate Nasal [Flonase] 50 mcg NS DAILY 11/09/15 [History] Latanoprost 1 drop BOTH EYES HS 11/28/15 [History] Amlodipine Besylate 10 mg PO DAILY 06/12/16 [History] hydrOXYzine HCl [Hydroxyzine HCl] 25 mg PO Q8H PRN 06/12/16 [History] Ferrous Sulfate 325 mg PO BID #60 tablet 07/30/16 [Rx] Potassium Chloride 10 meq PO BIDWM #20 tab.er.prt 08/06/16 [Rx] Calcium Carbonate/Vitamin D3 [Calcium 600 + Vit D Tablet] 1 tab PO TID 10/12/16 [History] Ipratropium/Albuterol Neb [Duoneb] 3 ml IH Q6H PRN 10/12/16 [History] Isosorbide MONOnitrate (24 HR) [Imdur] 30 mg PO DAILY 12/03/16 [History] Lactulose 20 gm PO BID 12/03/16 [History] Lisinopril [Zestril] 5 mg PO DAILY 12/03/16 [History] metOLazone [Zaroxolyn] 2.5 mg PO DAILY PRN #0 12/09/16 [Rx] Furosemide [Lasix] 40 mg PO BIDDIURETIC 30 Days 01/19/17 [Rx] Spironolactone [Aldactone] 50 mg PO BID 01/27/17 [History] Tamsulosin [Flomax] 0.8 mg PO DAILY 01/27/17 [History] Furosemide [Lasix] 40 mg PO DAILY #60 tab 01/29/17 [Rx] Allergies clopidogrel [From Plavix] Allergy (Verified 12/03/16 19:46) Itching Cortisone Allergy (Verified 12/03/16 19:46) Joint Pain Review of Systems All Systems: reviewed and no additional remarkable complaints except as stated All Systems review (narrative): Constitutional: Denies fever, chills HEENT: Denies headache, vision changes, neck pain, sore throat, rhinorrhea Heart: Denies chest pain palpitations Lungs: Denies shortness of breath cough Abdomen: Denies abdominal pain nausea vomiting diarrhea GI: denies hematuria, dysuria Extremities: Denies swelling, pain Neuro: Denies numbness, and tingling Exam - Vital Signs Vital signs: Initial Vital Signs Temp Pulse Resp BP Pulse Ox 98.4 F 74 18 109/61 98 01/26/17 19:52 01/26/17 19:52 01/26/17 19:52 01/26/17 19:52 01/26/17 19:52 Vital Signs - Last 8 Hours Temp Pulse Resp BP Pulse Ox 01/27/17 06:51 97.8 F 53 16 117/73 98 01/27/17 03:09 97.8 F 74 16 128/72 98 Intake and Output 01/26/17 01/27/17 01/27/17 23:59 07:59 15:59 Intake Total 1000 / 1000 Output Total 300 / 300 300 / 300 Balance 700 / 700 -300 / -300 Intake: IV Fluids 1000 / 1000 0.9 % Sodium Chloride 1, 1000 / 1000 000 ML @ 150 mls/hr IVC . Q6H40M ONE Rx#:[id number] Output: Urine 300 / 300 300 / 300 Other: Weight 72 kg Patient Weight 01/27/17 23:59 Weight 72 kg - General Appearance General appearance: appears started age, frail EENT: mucous membranes moist Neck: no JVD, no thyromegaly, supple Respiratory: kyphosis, clear Cardiology: edema (2+), regular rate, regular rhythm, normal S1, normal S2 Gastrointestinal: normoactive bowel sounds, no tenderness, no guarding, no organomegaly, no masses Integumentary: no rash, warm and dry Neurologic: no asterixis, alert and oriented x3 Musculoskeletal: no deformities, no erythema, no cyanosis, no clubbing Psychiatric: mood/affect appropriate, cooperative Results - Lab Results 01/27/17 05:15 01/27/17 05:15 Most recent lab results Calcium 9.0 mg/dL (8.6-10.8) 01/27/17 05:15 Magnesium 2.0 mg/dL (1.6-2.6) 01/27/17 05:15 Urine Sodium 72.0 mEq/L 01/27/17 02:48 Consult Discharge Plan - Plan Instructions: Furosemide (By mouth), Hyponatremia (DC) Additional Instructions: Follow-up with primary care provider within one to 2 weeks, follow up with nephrology within 2 weeks, have blood work checked within 3 days Referrals: Henrik Owen DO [Partnered Physician] - (Please call to schedule hospital follow up appointment within 1-2 weeks) Roberta Berrios MD [Primary Care Provider] - Prescriptions: Furosemide [Lasix] 40 mg PO DAILY #60 tab <Maxim Chao Ann-Marie - Last Filed: 02/09/17 17:45> Date of Encounter: 01/27/17 Exam - Vital Signs Vital signs: Initial Vital Signs Temp Pulse Resp BP Pulse Ox 98.4 F 74 18 109/61 98 01/26/17 19:52 01/26/17 19:52 01/26/17 19:52 01/26/17 19:52 01/26/17 19:52 Results - Lab Results 01/29/17 00:21 01/29/17 00:21 Most recent lab results Calcium 9.0 mg/dL (8.6-10.8) 01/29/17 00:21 Magnesium 1.8 mg/dL (1.6-2.6) 01/28/17 05:33 Urine Sodium 42.0 mEq/L 01/28/17 02:30 - Attending Attestation I examined this patient and my medical decision-making was reviewed with the Resident Physician. I agree with the documented findings, disposition and treatment plan as described except to the extent set forth below. Pt seen and examined presenting with hyponatremia, mostly chronic in the setting of cirrhosis, CHF and stage 4 CKD at baseline. Reviewed all lab results so far with sodium improving. PE also done. Agree with fluid restriction and diuretic use. Liberalize sodium in diet as well. Avoid nephrotoxins if possible. No acute indication for [employer] at this time.
[2017-01-27] MEDS: Ipratropium/Albuterol Neb 3 ML IH SCH ×3 (11:19→22:04)
[2017-01-27] MEDS ORDERED: hydrOXYzine pamoate 25 MG CAPSULE PO PRN (13:46)
--- NOTE | 2017-01-27 13:52 | Event Note ---
Date of Encounter: 01/27/17 Time of Encounter: 10:30 Patient seen and examined. On examination, patient sitting upright in bed watching television. He denies pain at this time. His main concern at this time is continuing his regular home medications. He denies shortness of breath. Trending his anemia, he is currently at the low end of his normal, his iron supplementation has been continued. Mild troponin elevation that is chronic and stable for him, he denies chest pain or shortness of breath, low suspicion for ACS. Hyponatremia is stable, nephrology is on board. Continue water restriction diet. I discussed CODE STATUS with him, he wishes to be a full code. OT and PT consultations are pending. Renal function is remaining stable, will trend. Given that he is here for dizziness and weakness, patient is upset that he has to use a urinal, he is upset that we have put a bed alarm on him. Fall risk protocol explained to the patient but he remains upset.
[2017-01-27] MEDS: amLODIPine 5 MG TABLET PO SCH (16:16)
--- NOTE | 2017-01-27 16:26 | Electrocardiograph Report ---
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
[2017-01-27] MEDS: Gabapentin 300 MG CAPSULE PO SCH (20:04)
[2017-01-27] MEDS: Latanoprost 2.5 ML BOTTLE BOTH EYES SCH (21:17)
[2017-01-28] MEDS: Ipratropium/Albuterol Neb 3 ML IH SCH ×4 (03:50→22:10)
[2017-01-28 06:09] LABS: Basophils % 0.2 %; Eosinophils # 0.2 K/mcL (0.0-0.6); Eosinophils % 2.9 %; Hematocrit 24.9 % (37.5-50.1); Hemoglobin 8.5 g/dL (12.9-16.9); Immature Granulocytes % 0.3 % (0-4); Lymphocytes # 0.9 K/mcL (0.6-4.6); Lymphocytes % 15.4 %; Mean Corpuscular HGB Conc 34.1 g/dL (31.6-35.5); Mean Corpuscular Hemoglobin 30.7 pg (28.0-33.3); Mean Corpuscular Volume 89.9 fL (83.0-100.0); Mean Platelet Volume 11.4 fL (9.4-12.4); Monocytes # 0.6 K/mcL (0.0-1.3); Monocytes % 9.8 %; Neutrophils # 4.4 K/mcL (1.6-8.9); Platelet Count 127 K/mcL (140-400); Red Blood Count 2.77 M/mcL (4.19-5.50); Red Cell Distribution Width 15.2 % (11.5-14.5); Segmented Neutrophils % 71.4 %
[2017-01-28 06:24] LABS: Calcium 8.8 mg/dL (8.6-10.8); Magnesium 1.8 mg/dL (1.6-2.6); Potassium 4.1 mEq/L (3.5-4.5)
[2017-01-28] MEDS: (Fish Oil 1,200 Mg Softgel) PO SCH (10:10)
[2017-01-28] MEDS: Fluticasone Propionate Nasal 50 MCG/SPRAY BOTTLE NS SCH (10:22)
[2017-01-28] MEDS: Isosorbide MONOnitrate (24 HR) 60 MG TAB.ER.24H PO SCH (10:22)
[2017-01-28] MEDS: Lactulose Oral Soln 20 GM/30 ML UDC PO SCH ×3 (10:22→21:00)
[2017-01-28] MEDS: amLODIPine 5 MG TABLET PO SCH (10:22)
[2017-01-28] MEDS: Furosemide 20 MG/2 ML VIAL IVP SCH (10:22)
[2017-01-28] MEDS ORDERED: Albumin 25% 25gram/100mL 25 GM/100 ML IV.SOLN IVPB SCH (10:30)
--- NOTE | 2017-01-28 17:59 | Internal Med Progress Note ---
Date of Encounter: 01/28/17 Time of Encounter: 10:30 - Assessment and plan (1) Hyponatremia Current Visit: No Status: Chronic Assessment and plan: Acute on chronic and currently lower than his baseline though stable. Baseline is approximately 127. He continues with 2+ pitting edema bilaterally. He denies any lightheadedness or dizziness. He was seen and evaluated by occupational and physical therapy both of whom recommended home health services. Nephrology is on board. Continue fluid restriction, furosemide, will add albumin and given that his BUN is higher than his baseline. Renal functioning has remained stable, will observe overnight. Appreciate nephrology recommendations. (2) Weakness Current Visit: No Status: Acute Assessment and plan: Has home health services, OT and PT are both recommended continued home health services. (3) CKD (chronic kidney disease) stage 4, GFR 15-29 ml/min Current Visit: No Status: Chronic Assessment and plan: Stable, nephrology on board. (4) Elevated troponin Current Visit: No Status: Chronic Assessment and plan: Chronic since 2016. Patient denies shortness of breath or chest pain. (5) Anemia Current Visit: No Status: Chronic Assessment and plan: Currently at the low end it is normal, will continue to trend. Qualifiers: Anemia type: unspecified type Qualified Code(s): D64.9 - Anemia, unspecified (6) Congestive heart failure (CHF) Current Visit: No Status: Chronic Assessment and plan: Most recent echocardiogram was from July of this year revealed an ejection fraction of 35%. Acute on chronic combined heart failure with chronic hypervolemia. Continuing furosemide- will add albumin and monitor. Qualifiers: Congestive heart failure type: combined Congestive heart failure chronicity : acute on chronic Qualified Code(s): I50.43 - Acute on chronic combined systolic (congestive) and diastolic (congestive) heart failure (7) PAD (peripheral artery disease) Current Visit: No Status: Chronic (8) CAD (coronary artery disease) Current Visit: No Status: Chronic Qualifiers: Coronary Disease-Associated Artery/Lesion type: bypass graft [place] vs. transplanted heart: [place] heart Associated angina: with stable angina Qualified Code(s): I25.708 - Atherosclerosis of coronary artery bypass graft(s) , unspecified, with other forms of angina pectoris (9) Atrial fibrillation, permanent Current Visit: No Status: Chronic Assessment and plan: Rate controlled, not on anticoagulation therapy (10) DVT prophylaxis Current Visit: No Status: Acute Assessment and plan: IPCs ordered (11) Hyperuricemia Current Visit: No Status: Chronic Assessment and plan: chronic though higher than his baseline. Nephrology onboard. (12) Anasarca Current Visit: No Status: Chronic (13) HTN (hypertension) Current Visit: No Status: Chronic Assessment and plan: Controlled, we will continue to trend Qualifiers: Hypertension type: essential hypertension Qualified Code(s): I10 - Essential (primary) hypertension - Subjective Interval history: Patient seen and examined. On examination, patient sitting upright in his chair watching television. Patient denies dizziness or weakness. He states he is eating well and is requesting to go home. - Constitutional Vitals: Temp Pulse Resp BP Pulse Ox 97.6 F 69 14 109/68 97 01/28/17 15:40 01/28/17 15:40 01/28/17 15:40 01/28/17 15:40 01/28/17 15:40 General appearance: Present: A&O X 3, no acute distress, answers questions appropriately - Head Head exam: Present: atraumatic, normocephalic - Eye Eye exam: Present: PERRL, conjuntiva pink, sclera anicteric Pupils: Present: PERRL - Neck Neck exam general surgery: Present: supple, trachea midline. Absent: lymphadenopathy - Respiratory Respiratory exam: Present: CTAB. Absent: accessory muscle use, rales, respiratory distress, rhonchi, wheezes - Cardiovascular Cardiovascular exam: Present: RRR, +S1, +S2. Absent: diastolic murmur, gallop, rubs, systolic murmur - GI/Abdominal GI/Abdominal exam: Present: normal bowel sounds, soft, no peritoneal signs. Absent: distended, tenderness - Extremities Exam Extremities exam: Present: warm, radial pulses palpable and symetrical. Absent : calf tenderness, cyanotic, pedal edema - Neurological Exam Neurological exam: Present: alert, CN II-XII intact, oriented X3, no focal deficits, strengths equal and symetr throughout. Absent: pronater drift, facial droop, speech deficit - Skin Skin exam: Present: dry, intact, normal color, warm Internal Medicine: Result - Labs CBC & Chem 7: 01/28/17 05:33 01/28/17 05:33 Labs: Short CBC 01/28/17 Range/Units 05:33 WBC 6.1 (4.3-11.1) K/mcL Hgb 8.5 L (12.9-16.9) g/dL Hct 24.9 L (37.5-50.1) % Plt Count 127 L (140-400) K/mcL Neutrophils # 4.4 (1.6-8.9) K/mcL BMP 01/28/17 05:33 Sodium 123 L Potassium 4.1 Chloride 90 L Carbon Dioxide 24 BUN 113 H Creatinine 2.46 H Glucose 95 Calcium 8.8 - ABG Interpretation ABG results: PT/INR, D-dimer PT 13.5 Seconds (9.4-12.1) H 01/26/17 22:41 Consult Discharge Plan - Plan Referrals: Roberta Berrios MD [Primary Care Provider] -
[2017-01-28] MEDS: Gabapentin 300 MG CAPSULE PO SCH (20:58)
[2017-01-28] MEDS: Latanoprost 2.5 ML BOTTLE BOTH EYES SCH (21:01)
--- NOTE | 2017-01-28 21:47 | Nephrology Progress Note ---
Date of Encounter: 01/28/17 Time of Encounter: 10:00 - Assessment and Plan (1) Chronic hyponatremia Current Visit: Yes Status: Acute hx of chronic hyponatremia in setting of cirrhosis, CHF, CKD chronic hypervolemic hypotonic hyponatremia Pedal edema 2+ Sodium 123 alert oriented x 3 Plan: Patient has multiple admissions for hyponatremia in the past, however at this point his sodium is close to baseline. Patient has been started on 20mg lasix and fluid restricted diet/regular diet. Uric acid elevated: patient is third spacing fluid and likely has low intravascular fluid. Previous albumin 2.9. We will give patient albumin and continue diuretics. (2) CKD (chronic kidney disease) stage 4, GFR 15-29 ml/min Current Visit: Yes Status: Acute hx of CKD stage 4 Patients GFR fluctuates greatly however currently he is at baseline Denies urinary symptoms. BP stable Plan: renal diet. continue lasix Renal protective and conservative theraphy Continue lisinopril for renoprotection avoid nephrotoxins: NSAIDs and contrast. Strict I/Os Subjective Principal diagnosis: Chronic hyponatremia Interval history: NO acute events overnight. Denies N/V/D. Objective - Vital Signs Vital signs: Vital Signs Temp Pulse Resp BP Pulse Ox 01/28/17 21:21 98 01/28/17 18:46 97.9 F 72 15 104/56 98 01/28/17 15:40 97.6 F 69 14 109/68 97 01/28/17 11:11 97.6 F 58 17 104/60 97 01/28/17 07:20 97.8 F 72 16 109/66 97 01/28/17 03:27 98.0 F 69 14 102/63 96 01/27/17 23:00 97.8 F 63 17 104/64 97 Intake and Output 01/28/17 01/28/17 01/28/17 07:59 15:59 23:59 Intake Total 240 / 240 Output Total 225 / 225 400 / 400 Balance -225 / -225 -160 / -160 Intake: Oral 240 / 240 Output: Urine 225 / 225 400 / 400 Other: Meal Lunch Dinner Percent of Meal Consumed 50% 100% # Voids 2 Weight 72.2 kg Patient Weight 01/28/17 23:59 Weight 72.2 kg - General Appearance General appearance: Present: appears started age, frail Neck: Present: no JVD Respiratory: Present: clear Cardiology: Present: edema (2+), regular rate, normal S1, normal S2 Gastrointestinal: Present: normoactive bowel sounds, no tenderness Integumentary: Present: no rash, warm and dry Psychiatric: Present: mood/affect appropriate, cooperative - Lab 01/28/17 05:33 01/28/17 05:33 Most recent lab results Calcium 8.8 mg/dL (8.6-10.8) 01/28/17 05:33 Magnesium 1.8 mg/dL (1.6-2.6) 01/28/17 05:33 Urine Sodium 42.0 mEq/L 01/28/17 02:30 Consult Discharge Plan - Plan Referrals: Roberta Berrios MD [Primary Care Provider] -
[2017-01-29 00:30] LABS: Basophils % 0.2 %; Eosinophils # 0.2 K/mcL (0.0-0.6); Eosinophils % 2.9 %; Hematocrit 24.8 % (37.5-50.1); Hemoglobin 8.5 g/dL (12.9-16.9); Immature Granulocytes % 0.3 % (0-4); Lymphocytes # 0.6 K/mcL (0.6-4.6); Lymphocytes % 10.8 %; Mean Corpuscular HGB Conc 34.3 g/dL (31.6-35.5); Mean Corpuscular Volume 90.5 fL (83.0-100.0); Mean Platelet Volume 10.7 fL (9.4-12.4); Monocytes # 0.5 K/mcL (0.0-1.3); Monocytes % 8.6 %; Neutrophils # 4.6 K/mcL (1.6-8.9); Platelet Count 127 K/mcL (140-400); Red Blood Count 2.74 M/mcL (4.19-5.50); Red Cell Distribution Width 15.5 % (11.5-14.5); Segmented Neutrophils % 77.2 %
[2017-01-29 00:42] LABS: Albumin 3.2 g/dL (3.5-5.0); Potassium 4.3 mEq/L (3.5-4.5); Uric Acid 11.1 mg/dL (3.5-7.2)
[2017-01-29] MEDS: Albumin 25% 25gram/100mL 25 GM/100 ML IV.SOLN IVPB SCH ×2 (01:33→12:21)
[2017-01-29] MEDS: Ipratropium/Albuterol Neb 3 ML IH SCH ×3 (04:01→15:45)
[2017-01-29] MEDS: (Fish Oil 1,200 Mg Softgel) PO SCH (09:01)
[2017-01-29] MEDS: amLODIPine 5 MG TABLET PO SCH (09:01)
[2017-01-29] MEDS: Furosemide 20 MG/2 ML VIAL IVP SCH (09:01)
[2017-01-29] MEDS: Isosorbide MONOnitrate (24 HR) 60 MG TAB.ER.24H PO SCH (09:01)
[2017-01-29] MEDS: Fluticasone Propionate Nasal 50 MCG/SPRAY BOTTLE NS SCH (09:01)
[2017-01-29] MEDS: Lactulose Oral Soln 20 GM/30 ML UDC PO SCH (09:01)
--- NOTE | 2017-01-29 09:47 | Nephrology Progress Note ---
Date of Encounter: 01/29/17 Time of Encounter: 10:00 - Assessment and Plan (1) Chronic hyponatremia Current Visit: Yes Status: Acute hx of chronic hyponatremia in setting of cirrhosis, CHF, CKD chronic hypervolemic hypotonic hyponatremia Pedal edema improved Sodium 122 alert oriented x 3 Plan: Patient has multiple admissions for hyponatremia in the past, however at this point his sodium is close to baseline. (2) CKD (chronic kidney disease) stage 4, GFR 15-29 ml/min Current Visit: Yes Status: Acute hx of CKD stage 4 Patients GFR fluctuates greatly however currently he is at baseline elevated bun Denies urinary symptoms. BP stable Plan: renal diet. continue lasix Has recieved two doses of albumin with two remaining. Has improved lower extremity edema with treatment of albumin in combination with lasix. Patient is overall fluid overloaded but has elevated BUN and uric acid indicating that he has poor intravascular volume and clearance. Renal protective and conservative theraphy d/c lisinopril. avoid nephrotoxins: NSAIDs and contrast. Strict I/Os Repeat BMP tomorrow morning. Subjective Principal diagnosis: Chronic hyponatremia Interval history: NO acute events overnight. Denies N/V/D. Objective - Vital Signs Vital signs: Vital Signs Temp Pulse Resp BP Pulse Ox 01/29/17 06:46 97.7 F 62 15 109/57 97 01/28/17 23:35 97.8 F 56 14 110/53 98 01/28/17 21:21 98 01/28/17 18:46 97.9 F 72 15 104/56 98 01/28/17 15:40 97.6 F 69 14 109/68 97 01/28/17 11:11 97.6 F 58 17 104/60 97 Intake and Output 01/28/17 01/29/17 01/29/17 23:59 07:59 15:59 Intake Total 480 / 480 Output Total 200 / 200 200 / 200 Balance -200 / -200 280 / 280 Intake: Oral 480 / 480 Output: Urine 200 / 200 200 / 200 Other: Meal Dinner Breakfast Percent of Meal Consumed 100% 100% - General Appearance General appearance: Present: well-developed, well-nourished, appears started age , frail Neck: Present: no JVD, supple Respiratory: Present: clear Cardiology: Present: edema (1+), regular rate, normal S1, normal S2 Gastrointestinal: Present: normoactive bowel sounds, no tenderness Integumentary: Present: no rash, warm and dry Neurologic: Present: no focal deficit, no asterixis, alert and oriented x3 Psychiatric: Present: mood/affect appropriate, cooperative - Lab 01/29/17 00:21 01/29/17 00:21 Most recent lab results Calcium 9.0 mg/dL (8.6-10.8) 01/29/17 00:21 Magnesium 1.8 mg/dL (1.6-2.6) 01/28/17 05:33 Urine Sodium 42.0 mEq/L 01/28/17 02:30 Consult Discharge Plan - Plan Referrals: Roberta Berrios MD [Primary Care Provider] -
[2017-01-29 15:19] VITALS: BP 99/54
--- NOTE | 2017-01-29 15:58 | Discharge Summary ---
Date of Encounter: 01/29/17 Time of Encounter: 14:30 - Discharge Diagnosis (1) Hyponatremia Priority: Secondary Status: Chronic Comments: Acute on chronic and currently lower than his baseline though stable. Follow- up outpatient with nephrology. (2) Weakness Priority: Primary Status: Acute Comments: Has home health services, OT and PT are both recommended continued home health services. (3) CKD (chronic kidney disease) stage 4, GFR 15-29 ml/min Priority: Secondary Status: Chronic Comments: Remained stable and nephrology was on board during this admission. Follow-up outpatient (4) Elevated troponin Priority: Secondary Status: Chronic Comments: Chronic since 2016. Patient denies shortness of breath or chest pain. (5) Anemia Priority: Secondary Status: Chronic Comments: Currently at the low end it is normal but has remained stable while admitted. Followup outpatient. (6) Congestive heart failure (CHF) Priority: Secondary Status: Chronic Comments: Most recent echocardiogram was from July of this year revealed an ejection fraction of 35%. Acute on chronic combined heart failure with chronic hypervolemia. Diuresed with furosemide and albumin while admitted. Patient denied shortness of breath above his norm and his pedal edema lessened prior to discharge. Qualifiers: Congestive heart failure type: combined Congestive heart failure chronicity : acute on chronic Qualified Code(s): I50.43 - Acute on chronic combined systolic (congestive) and diastolic (congestive) heart failure (7) PAD (peripheral artery disease) Priority: Secondary Status: Chronic (8) CAD (coronary artery disease) Priority: Secondary Status: Chronic Qualifiers: Coronary Disease-Associated Artery/Lesion type: bypass graft [place] vs. transplanted heart: [place] heart Associated angina: with stable angina Qualified Code(s): I25.708 - Atherosclerosis of coronary artery bypass graft(s) , unspecified, with other forms of angina pectoris (9) Atrial fibrillation, permanent Priority: Secondary Status: Chronic Comments: Rate controlled, not on anticoagulation therapy (10) DVT prophylaxis Priority: Primary Status: Acute Comments: IPCs ordered while admitted (11) Hyperuricemia Priority: Secondary Status: Chronic Comments: chronic though higher than his baseline and trended down prior to discharge. Nephrology onboard throughout admission. followup outpatient (12) Anasarca Priority: Secondary Status: Chronic (13) HTN (hypertension) Priority: Secondary Status: Chronic Comments: Controlled, follow-up outpatient Qualifiers: Hypertension type: essential hypertension Qualified Code(s): I10 - Essential (primary) hypertension - Discharge Medications Prescriptions: Furosemide [Lasix] 40 mg PO DAILY #60 tab Home Medications: Atorvastatin [Lipitor] 40 mg PO HS 06/08/15 [History] Gabapentin [Neurontin] 600 mg PO HS 06/08/15 [History] Garlic 1,000 mg PO DAILY 06/08/15 [History] Metoprolol [Lopressor] 50 mg PO BID 06/08/15 [History] Multivitamin [Flintstones] 1 tab PO DAILY 06/08/15 [History] [place]-3S/Dha/Epa/Fish Oil [Fish Oil 1,200 mg Softgel] 1 cap PO DAILY 06/08/15 [ History] Montelukast [Singulair] 10 mg PO HS 11/05/15 [History] Fluticasone Propionate Nasal [Flonase] 50 mcg NS DAILY 11/09/15 [History] Latanoprost 1 drop BOTH EYES HS 11/28/15 [History] Amlodipine Besylate 10 mg PO DAILY 06/12/16 [History] hydrOXYzine HCl [Hydroxyzine HCl] 25 mg PO Q8H PRN 06/12/16 [History] Ferrous Sulfate 325 mg PO BID #60 tablet 07/30/16 [Rx] Potassium Chloride 10 meq PO BIDWM #20 tab.er.prt 08/06/16 [Rx] Calcium Carbonate/Vitamin D3 [Calcium 600 + Vit D Tablet] 1 tab PO TID 10/12/16 [History] Ipratropium/Albuterol Neb [Duoneb] 3 ml IH Q6H PRN 10/12/16 [History] Isosorbide MONOnitrate (24 HR) [Imdur] 30 mg PO DAILY 12/03/16 [History] Lactulose 20 gm PO BID 12/03/16 [History] Lisinopril [Zestril] 5 mg PO DAILY 12/03/16 [History] metOLazone [Zaroxolyn] 2.5 mg PO DAILY PRN #0 12/09/16 [Rx] Furosemide [Lasix] 40 mg PO BIDDIURETIC 30 Days 01/19/17 [Rx] Spironolactone [Aldactone] 50 mg PO BID 01/27/17 [History] Tamsulosin [Flomax] 0.8 mg PO DAILY 01/27/17 [History] Furosemide [Lasix] 40 mg PO DAILY #60 tab 01/29/17 [Rx] Allergies/Adverse Reactions: Allergies clopidogrel [From Plavix] Allergy (Verified 12/03/16 19:46) Itching Cortisone Allergy (Verified 12/03/16 19:46) Joint Pain Date of admission: 01/27/17 00:05 Primary care physician: Roberta Berrios, Consults: 01/27/17 00:56 Consult to Occupational Therapy [CONS] Routine Comment: Evaluate, develop and implement POC Reason for Consult: weakness Consult to Physical Therapy [CONS] Routine Comment: Evaluate, develop and implement POC Reason for Consult: weakness 01/27/17 01:03 Consult to Gluing Machine Feeder [CONS] Routine Reason for SW Consult: Discharge planning 01/27/17 08:13 Consult to Nephrology [CONS] Routine Consulting Provider: Maxim Chao Reason for Consult: patient known to dr owen. recent admit and dc last week. hyervolemic hyponatremic with hx cirrhosis Time Notified: 08:14 Call Completed: Yes Discharging clinician: Bettye Moreira Anticipated date of discharge: 01/29/17 (with conitnued svcs) - Patient Status Disposition: Home Health Service Condition: Fair Functional capacity at discharge: uses cane/walker Overall status at discharge: patient is back to baseline - Discharge Instructions Follow Up With: Roberta Berrios MD [Primary Care Provider] - Henrik Owen DO [Partnered Physician] - Additional Instructions: Follow-up with primary care provider within one to 2 weeks, follow up with nephrology within 2 weeks, have blood work checked within 3 days - Diet and Activity Activity: ambulate only with your walker, as per physical therapy, increase activity as tolerated Diet: other (high sodium; fluid restriction 1.5L per day) Hospital course: Mr. King is a 86 year old male with past medical history of atrial fibrillation not on anticoagulation, cirrhosis, heart failure, CAD status post CABG and pacemaker, hyperlipidemia, hypertension, PAD, chronic kidney disease stage IV, anasarca, hyponatremia. Patient presented to the emergency department after his primary care provider noted his sodium to be 23. Patient has a history of chronic hyponatremia secondary to hypervolemic hyponatremia secondary to liver cirrhosis. Patient also endorsed that he was feeling dizzy, generally weak, lethargic, and nauseated. The patient was admitted to the hospitalist service for further evaluation and management and nephrology was brought on board. He was started on furosemide and was diuresed over the course of 2 nights. His sodium levels remained stable. Renal functioning remained stable. Albumin was added to his regimen on the last 2 days of his admission and his pedal edema had decreased. He denies shortness of breath above his norm during this admission. He was seen and evaluated by occupational and physical therapy both of whom recommended home health which she already receives. Patient denied any lightheadedness or dizziness on day of discharge. He was cleared for discharge per nephrology with close outpatient follow-up. He was encouraged to maintain a fluid restricted diet and to increase his sodium intake. He was discharged home with home health services in stable condition with close outpatient follow- up recommended. - Time Spent with Patient Total time spent providing and/or coordinating discharge services: - Constitutional Vitals: Temp Pulse Resp BP Pulse Ox 97.6 F 76 15 99/54 97 01/29/17 15:16 01/29/17 15:16 01/29/17 15:16 01/29/17 15:16 01/29/17 15:16 General appearance: Present: A&O X 3, pleasant, no acute distress, answers questions appropriately - Head Head exam: Present: atraumatic, normocephalic - Eye Eye exam: Present: PERRL, conjuntiva pink, sclera anicteric Pupils: Present: PERRL - Neck Neck exam general surgery: Present: supple, trachea midline. Absent: lymphadenopathy - Respiratory Respiratory exam: Present: decreased breath sounds. Absent: accessory muscle use, rales, respiratory distress, rhonchi, wheezes - Cardiovascular Cardiovascular exam: Present: RRR, +S1, +S2. Absent: diastolic murmur, gallop, rubs, systolic murmur - GI/Abdominal GI/Abdominal exam: Present: normal bowel sounds, soft, no peritoneal signs. Absent: distended, tenderness - Extremities Exam Extremities exam: Present: pedal edema (trace, nonpitting), warm, radial pulses palpable and symetrical. Absent: calf tenderness, cyanotic - Neurological Exam Neurological exam: Present: alert, CN II-XII intact, oriented X3, no focal deficits, strengths equal and symetr throughout. Absent: pronater drift, facial droop, speech deficit - Skin Skin exam: Present: dry, intact, pallor, warm
--- NOTE | 2017-01-29 16:28 | Physician Discharge Referral ---
Home Health/Hosp Referral Info Transfer to: Home Health Attending Provider: Brianna Moreira CNP Provider in Charge Post Discharge: PCP - Diagnosis (1) Hyponatremia Priority: Secondary Status: Chronic (2) Weakness Priority: Primary Status: Acute (3) CKD (chronic kidney disease) stage 4, GFR 15-29 ml/min Priority: Secondary Status: Chronic (4) Elevated troponin Priority: Secondary Status: Chronic (5) Anemia Priority: Secondary Status: Chronic (6) Congestive heart failure (CHF) Priority: Secondary Status: Chronic (7) PAD (peripheral artery disease) Priority: Secondary Status: Chronic (8) CAD (coronary artery disease) Priority: Secondary Status: Chronic (9) Atrial fibrillation, permanent Priority: Secondary Status: Chronic (10) DVT prophylaxis Priority: Primary Status: Acute (11) Hyperuricemia Priority: Secondary Status: Chronic (12) Anasarca Priority: Secondary Status: Chronic (13) HTN (hypertension) Priority: Secondary Status: Chronic - Respiratory Orders Smoking Cessation: Smoking cessation has been advised. For more information, call the [place] Tobacco Quit Line at 3-496-BDBHNOW. - Diet/Nutrition Diet/Nutrition: List: fluid restriction 1.5L per day and high sodium diet - Activity Activity Orders: Ambulate, Walker - Services Needed Following services are medically necessary services: Nursing, Home Health Aide, Physical Therapy, Occupational Therapy Other Treatments: recheck BMP in 3 days and report to Dr Tomlinson office - Transfer Medications Prescriptions: Furosemide [Lasix] 40 mg PO DAILY #60 tab Home Medications: Atorvastatin [Lipitor] 40 mg PO HS 06/08/15 [History] Gabapentin [Neurontin] 600 mg PO HS 06/08/15 [History] Garlic 1,000 mg PO DAILY 06/08/15 [History] Metoprolol [Lopressor] 50 mg PO BID 06/08/15 [History] Multivitamin [Flintstones] 1 tab PO DAILY 06/08/15 [History] [place]-3S/Dha/Epa/Fish Oil [Fish Oil 1,200 mg Softgel] 1 cap PO DAILY 06/08/15 [ History] Montelukast [Singulair] 10 mg PO HS 11/05/15 [History] Fluticasone Propionate Nasal [Flonase] 50 mcg NS DAILY 11/09/15 [History] Latanoprost 1 drop BOTH EYES HS 11/28/15 [History] Amlodipine Besylate 10 mg PO DAILY 06/12/16 [History] hydrOXYzine HCl [Hydroxyzine HCl] 25 mg PO Q8H PRN 06/12/16 [History] Ferrous Sulfate 325 mg PO BID #60 tablet 07/30/16 [Rx] Potassium Chloride 10 meq PO BIDWM #20 tab.er.prt 08/06/16 [Rx] Calcium Carbonate/Vitamin D3 [Calcium 600 + Vit D Tablet] 1 tab PO TID 10/12/16 [History] Ipratropium/Albuterol Neb [Duoneb] 3 ml IH Q6H PRN 10/12/16 [History] Isosorbide MONOnitrate (24 HR) [Imdur] 30 mg PO DAILY 12/03/16 [History] Lactulose 20 gm PO BID 12/03/16 [History] Lisinopril [Zestril] 5 mg PO DAILY 12/03/16 [History] metOLazone [Zaroxolyn] 2.5 mg PO DAILY PRN #0 12/09/16 [Rx] Furosemide [Lasix] 40 mg PO BIDDIURETIC 30 Days 01/19/17 [Rx] Spironolactone [Aldactone] 50 mg PO BID 01/27/17 [History] Tamsulosin [Flomax] 0.8 mg PO DAILY 01/27/17 [History] Furosemide [Lasix] 40 mg PO DAILY #60 tab 01/29/17 [Rx] Allergies/Adverse Reactions: Allergies clopidogrel [From Plavix] Allergy (Verified 12/03/16 19:46) Itching Cortisone Allergy (Verified 12/03/16 19:46) Joint Pain Certification: Further, I certify that my clinical findings support that this patient is homebound (i.e. absences from home require considerable and taxing effort and are for medical reasons or [facility]ast[employer] services or infrequently or short duration when for other reasons) because: Homebound Reason: Patient requires assistance of a person or device to safely leave home, Leaving home requires considerable and taxing effort due to condition Attestation: My signature below is to certify that this patient is under my care and that I, or nurse practitioner, or a physician's logging assistant working with me, has a face-to -face encounter with this patient.
== END 2017-01-29 17:27 | disposition home health service (06) ==
LOC: 3BNU 19:48 → EMEROO 19:48 → SUATTDRO 01-27 00:05 → 3BNU 01-27 00:32
PROVIDERS: ADMIT Hospitalist; ATTEND Nurse Practitioner Family

== ENCOUNTER 2017-02-20 15:29 | Inpatient (IN) ==
[2017-02-20] MEDS ORDERED: *HR* Morphine 2 MG/ML SYRINGE IVP ONE (15:41)
[2017-02-20] MEDS ORDERED: Ondansetron 4 MG/2 ML VIAL IVP ONE (15:41)
[2017-02-20 16:01] LABS: Basophils % 0.1 %; Eosinophils # 0.1 K/mcL (0.0-0.6); Eosinophils % 1.5 %; Hematocrit 29.9 % (37.5-50.1); Hemoglobin 9.7 g/dL (12.9-16.9); Immature Granulocytes % 0.4 % (0-4); Lymphocytes # 0.6 K/mcL (0.6-4.6); Lymphocytes % 7.8 %; Mean Corpuscular HGB Conc 32.4 g/dL (31.6-35.5); Mean Corpuscular Hemoglobin 31.9 pg (28.0-33.3); Mean Platelet Volume 10.2 fL (9.4-12.4); Monocytes # 0.7 K/mcL (0.0-1.3); Monocytes % 9.6 %; Platelet Count 182 K/mcL (140-400); Red Blood Count 3.04 M/mcL (4.19-5.50); Red Cell Distribution Width 17.2 % (11.5-14.5); Segmented Neutrophils % 80.6 %
[2017-02-20 16:03] LABS: Mean Corpuscular Volume 98.4 fL (83.0-100.0)
[2017-02-20 16:10] LABS: INR 1.2; Prothrombin Time 13.4 Seconds (9.4-12.1)
[2017-02-20 16:13] LABS: Activated Partial Thrombo Time 33.5 Seconds (26.0-36.0)
[2017-02-20 16:19] LABS: Albumin 3.1 g/dL (3.5-5.0); Albumin/Globulin Ratio 0.6 (1.1-2.2); Bilirubin,Direct 0.8 mg/dL (0.0-0.5); Bilirubin,Indirect 0.5 mg/dL (0.0-1.2); Bilirubin,Total 1.3 mg/dL (0.2-1.2); Calcium 9.3 mg/dL (8.6-10.8); Total Protein 8.1 g/dL (6.0-8.3)
--- NOTE | 2017-02-20 16:47 | Emergency Department Note ---
Disposition Clinical Impression: Abdominal pain Qualifiers: Abdominal location: unspecified location Qualified Code(s): R10.9 - Unspecified abdominal pain Fall Qualifiers: Encounter type: subsequent encounter Qualified Code(s): W19.XXXD - Unspecified fall, subsequent encounter Anemia Qualifiers: Anemia type: unspecified type Qualified Code(s): D64.9 - Anemia, unspecified Ascites Qualifiers: Ascites type: other type Qualified Code(s): R18.8 - Other ascites Disposition: Admitted As Inpatient Condition: Good Forms: Work/School Release, ED Satisfaction Letter Time of Disposition: 17:55 Abdominal Pain HPI - General Chief Complaint: ED Abdominal Pain Stated Complaint: abd pain Time Seen by Provider: 02/20/17 15:31 Source: EMS Mode of arrival: EMS Limitations: no limitations Nursing Notes Reviewed: Yes Vital Signs Reviewed: Yes - History of Present Illness HPI Narrative: Patient presents in emergency room from care home today. The complaining of abdominal pain. He has known history of gallbladder issues and liver ascites. They sent him in for evaluation here today. No recent injuries or issues. Denied fevers chills nausea vomiting diarrhea headache or vision change per the EMS transport team. 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 Location: diffuse Pain Severity: moderate Pain Scale: 7 Quality: cramping Radiation: none Migration to: no migration Improves with: nothing Worsens with: movement Associated symptoms: Reports: denies other symptoms Treatments prior to arrival: none - Related Data Home Medications Medication Instructions Recorded Confirmed Atorvastatin [Lipitor] 40 mg PO HS 06/08/15 01/27/17 Gabapentin [Neurontin] 600 mg PO HS 06/08/15 01/27/17 Garlic 1,000 mg PO DAILY 06/08/15 01/27/17 Metoprolol [Lopressor] 50 mg PO BID 06/08/15 01/27/17 Multivitamin [Flintstones] 1 tab PO DAILY 06/08/15 01/27/17 [place]-3S/Dha/Epa/Fish Oil [Fish 1 cap PO DAILY 06/08/15 01/27/17 Oil 1,200 mg Softgel] Montelukast [Singulair] 10 mg PO HS 11/05/15 01/27/17 Fluticasone Propionate Nasal 50 mcg NS DAILY 11/09/15 01/27/17 [Flonase] Latanoprost 1 drop BOTH EYES HS 11/28/15 01/27/17 Amlodipine Besylate 10 mg PO DAILY 06/12/16 01/27/17 hydrOXYzine HCl [Hydroxyzine HCl] 25 mg PO Q8H PRN 06/12/16 01/27/17 Calcium Carbonate/Vitamin D3 1 tab PO TID 10/12/16 01/27/17 [Calcium 600 + Vit D Tablet] Ipratropium/Albuterol Neb [Duoneb] 3 ml IH Q6H PRN 10/12/16 01/27/17 Isosorbide MONOnitrate (24 HR) 30 mg PO DAILY 12/03/16 01/27/17 [Imdur] Lactulose 20 gm PO BID 12/03/16 01/27/17 Lisinopril [Zestril] 5 mg PO DAILY 12/03/16 01/27/17 Spironolactone [Aldactone] 50 mg PO BID 01/27/17 01/27/17 Tamsulosin [Flomax] 0.8 mg PO DAILY 01/27/17 01/27/17 Previous Rx's Medication Instructions Recorded Ferrous Sulfate 325 mg PO BID #60 tablet 07/30/16 Potassium Chloride 10 meq PO BIDWM #20 tab.er.prt 08/06/16 metOLazone [Zaroxolyn] 2.5 mg PO DAILY PRN #0 12/09/16 Furosemide [Lasix] 40 mg PO BIDDIURETIC 30 Days 01/19/17 Furosemide [Lasix] 40 mg PO DAILY #60 tab 01/29/17 Allergies Allergy/AdvReac Type Severity Reaction Status Date / Time clopidogrel [From Plavix] Allergy Itching Verified 12/03/16 19:46 Cortisone Allergy Joint Pain Verified 12/03/16 19:46 All systems ED: reviewed and negative except as stated. Review of Systems: As Per HPI Constitutional: Denies: fever, chills Cardiovascular: Denies: chest pain, palpitations, dyspnea on exertion, orthopnea Respiratory: Denies: cough, dyspnea Gastrointestinal: Reports: abdominal pain. Denies: nausea, vomiting, diarrhea, constipation Genitourinary: Denies: urgency, dysuria Musculoskeletal: Denies: back pain, neck pain Integumentary: Reports: rash Neurological: Denies: headache Abdominal Pain PMH - Past Medical History Medical history: Reports: atrial fibrillation, cirrhosis, CHF, coronary artery disease, hyperlipidemia, hypertension, myocardial infarction, peripheral artery disease, renal disease, other Male Surgical History: Reports: coronary bypass (CABG), pacemaker/AICD, vascular surgery, other Psychiatric history: Reports: no psych history - Social History Smoking status: Never smoker Alcohol use: Reports: none Drug use: Reports: none Physical Exam - General Limitations: no limitations General appearance: alert - Neck Neck exam: Present: normal inspection, full ROM, trachea midline - Chest Chest inspection: Present: normal inspection, symmetric chest wall rise - Respiratory Respiratory exam: Present: normal lung sounds bilaterally - Cardiovascular Cardiovascular exam: Present: regular rate, normal rhythm, normal heart sounds - Abdominal Exam Abdominal exam: Present: soft, tenderness, normal bowel sounds. Absent: distention, guarding, rebound, rigidity, Tatum's sign, Rovsing's sign, tenderness at McBurney's Point - Extremities Exam Extremities exam: Present: normal inspection, full ROM. Absent: tenderness, pedal edema - Back Exam Back exam: Present: normal inspection, full ROM. Absent: tenderness - Neurological Exam Neurological exam: Present: alert, CN II-XII intact, normal gait. Absent: oriented X3 - Skin Skin exam: Present: warm, dry, intact, normal color Course Course Narrative: Patient seen and examined the time of arrival by EMS. Patient is currently a resident of [facility]. According to EMS patient has been experiencing abdominal pain over the last 24 hours. He has a history of liver cirrhosis with ascites. He also has gallbladder issues. He has been complaining of right lower quadrant abdominal pain for the last 24 hours in the care home recommended evaluation here in the emergency room. They denied fevers chills, shortness of breath, chest pain headache vision changes nausea vomiting or diarrhea. Patient does have baseline dementia but on presentation here he is able to answer questions. Head is atraumatic at this time pupils equal round reactive to light. Oropharynx is patent mucous membranes are moist. Trachea is midline lungs are clear heart is regular. Abdomen is soft distention is noted with positive fluid wave. No specific guarding rigidity or peritoneal-like symptoms. Abdomen is otherwise benign at this time. Patient moves all 4 extremities. He has pain in the lower pelvic region the abdomen. Because of the patient's symptom presentation and history were image the chest and abdomen. Patient will have fluids nausea medication and pain medication given as needed. Labs including CBC chemistry troponin will be ordered. Patient did have EKG imaging completed here. Patient is otherwise resting in the bed comfortable and in no specific distress at this time. Disposition pending workup and treatment course. - Reevaluation(s) Reevaluation #1: Patient has stable laboratory workup with hemoglobin that appears to be better than normal. His chemistry panel appears to be stable at this time mildly elevated potassium but otherwise no acute issue. Ammonia is within normal limits. CT imaging of the abdomen shows cholelithiasis and possibly enlarged aortic aneurysm as well as free fluid in the abdomen that is consistent with ascites and his liver disease. He does have mildly obstructive pathology was mildly elevated T bili and alkaline phosphatase. He has had this happen several times in past most likely secondary to his cholelithiasis. Otherwise there is no other acute specific pathology noted. Physical exam is benign. Patient is stable pelvic ring fracture that appears to be from 02/02/17. Patient otherwise is resting in the bed. Consultation placed with the care home rf manager. Patient was discussed with the provider Asia. She and I reviewed the history over the last 24 hours. She also understands and was concerned about the patient. At this point I feel that admissions prior warranted secondary does come discomfort symptoms and possibility of progression of the ascites and obstructive pathology. EKG reviewed by myself showing what is electrically a truly paced and ventricularly paced rhythm. The rest of the labs are within normal limits. Admission process to be completed at this time. Time: 17:51 Reevaluation #2: Patient discussed with the hospitalist Dr. [email or web address] and his nurse practitioner. Reviewed the presentation symptoms medical intervention as well as history. Happy to accept the patient for evaluation and stabilization of potential biliary disease secondary to cholelithiasis. Patient also has obstructive pathology and labs and ascites. No other recommendations from them this time. Patient is otherwise stable. We will continue to monitor his admission process is completed Time: 18:05 Vital Signs Temperature 97.8 F 02/20/17 15:31 Pulse Rate 63 02/20/17 15:31 Respiratory Rate 18 02/20/17 15:31 Blood Pressure 136/79 02/20/17 15:31 O2 Sat by Pulse Oximetry 99 02/20/17 15:31 Temperature 97.8 F 08/04/17 15:31 Pulse Rate 63 02/20/17 15:31 Respiratory Rate 18 02/20/17 15:31 Blood Pressure 136/79 02/20/17 15:31 O2 Sat by Pulse Oximetry 99 02/20/17 15:31 Oxygen Delivery Oxygen Delivery Room Air Abdominal Pain - MDM Narrative Medical decision making narrative: Abdominal pain, ascites, possibly biliary colic - Medical Records Medical records reviewed: Yes I reviewed the patient's medical records. - Lab Data Lab results reviewed: Yes I reviewed the patient's lab results. Result diagrams: 02/20/17 15:52 02/20/17 15:52 Lab Results 02/20/17 02/20/17 02/20/17 Range/Units 15:52 15:52 15:52 WBC 7.4 (4.3-11.1) K/mcL RBC 3.04 L (4.19-5.50) M/mcL Hgb 9.7 L (12.9-16.9) g/dL Hct 29.9 L (37.5-50.1) % MCV 98.4 D (83.0-100.0) fL MCH 31.9 (28.0-33.3) pg MCHC 32.4 (31.6-35.5) g/dL RDW 17.2 H (11.5-14.5) % Plt Count 182 (140-400) K/mcL MPV 10.2 (9.4-12.4) fL Immature Gran % 0.4 (0-4) % Seg Neutrophils % 80.6 % Lymphocytes % 7.8 % Monocytes % 9.6 % Eosinophils % 1.5 % Basophils % 0.1 % Neutrophils # 6.0 (1.6-8.9) K/mcL Lymphocytes # 0.6 (0.6-4.6) K/mcL Monocytes # 0.7 (0.0-1.3) K/mcL Eosinophils # 0.1 (0.0-0.6) K/mcL Basophils # 0.0 (0.0-0.2) K/mcL PT 13.4 H (9.4-12.1) Seconds INR 1.2 APTT 33.5 (26.0-36.0) Seconds Sodium 124 L (136-145) mEq/L Potassium 5.0 H (3.5-4.5) mEq/L Chloride 93 L (98-109) mEq/L Carbon Dioxide 25 (19-29) mEq/L BUN 39 H (8-26) mg/dL Creatinine 1.93 H (0.72-1.25) mg/dL Est GFR ( Amer) 40 L (> 60) Est GFR (Non-Af Amer) 33 L (> 60) BUN/Creatinine Ratio 20 (6-26) Glucose 98 (70-99) mg/dL Calculated Osmolality 267 L (280-300) Lactic Acid (0.5-2.2) mmol/L Calcium 9.3 (8.6-10.8) mg/dL Total Bilirubin 1.3 H (0.2-1.2) mg/dL Direct Bilirubin 0.8 H (0.0-0.5) mg/dL Indirect Bilirubin 0.5 (0.0-1.2) mg/dL AST 38 H (5-34) Units/L ALT 27 (0-55) Units/L Alkaline Phosphatase 273 H (38-126) Units/L Ammonia (18-72) mcmol/L Troponin I (0-0.03) ng/mL Serum Total Protein 8.1 (6.0-8.3) g/dL Albumin 3.1 L (3.5-5.0) g/dL Globulin 5.0 H (2.4-3.5) g/dL Albumin/Globulin Ratio 0.6 L (1.1-2.2) Lipase 71 (8-78) Units/L 02/20/17 02/20/17 02/20/17 Range/Units 15:52 15:52 15:52 WBC (4.3-11.1) K/mcL RBC (4.19-5.50) M/mcL Hgb (12.9-16.9) g/dL Hct (37.5-50.1) % MCV (83.0-100.0) fL MCH (28.0-33.3) pg MCHC (31.6-35.5) g/dL RDW (11.5-14.5) % Plt Count (140-400) K/mcL MPV (9.4-12.4) fL Immature Gran % (0-4) % Seg Neutrophils % % Lymphocytes % % Monocytes % % Eosinophils % % Basophils % % Neutrophils # (1.6-8.9) K/mcL Lymphocytes # (0.6-4.6) K/mcL Monocytes # (0.0-1.3) K/mcL Eosinophils # (0.0-0.6) K/mcL Basophils # (0.0-0.2) K/mcL PT (9.4-12.1) Seconds INR APTT (26.0-36.0) Seconds Sodium (136-145) mEq/L Potassium (3.5-4.5) mEq/L Chloride (98-109) mEq/L Carbon Dioxide (19-29) mEq/L BUN (8-26) mg/dL Creatinine (0.72-1.25) mg/dL Est GFR ( Amer) (> 60) Est GFR (Non-Af Amer) (> 60) BUN/Creatinine Ratio (6-26) Glucose (70-99) mg/dL Calculated Osmolality (280-300) Lactic Acid 1.0 (0.5-2.2) mmol/L Calcium (8.6-10.8) mg/dL Total Bilirubin (0.2-1.2) mg/dL Direct Bilirubin (0.0-0.5) mg/dL Indirect Bilirubin (0.0-1.2) mg/dL AST (5-34) Units/L ALT (0-55) Units/L Alkaline Phosphatase (38-126) Units/L Ammonia 16 L (18-72) mcmol/L Troponin I 0.03 (0-0.03) ng/mL Serum Total Protein (6.0-8.3) g/dL Albumin (3.5-5.0) g/dL Globulin (2.4-3.5) g/dL Albumin/Globulin Ratio (1.1-2.2) Lipase (8-78) Units/L - Radiology Data Radiology results reviewed: Yes I reviewed the patient's radiology results. Ascites, pelvic ring fracture, aortic aneurysm. No other acute pathology noted - EKG Data EKG attestation: Yes I reviewed and interpreted this EKG. EKG results narrative: Atrially and ventricularly paced rhythm compared to 02/04/17. Stable exam at this time
[2017-02-20] MEDS: 0.9 % Sodium Chloride 1,000 ML IVC SCH (16:59)
[2017-02-20] MEDS ORDERED: Ondansetron 4 MG/2 ML VIAL IVP PRN (20:12)
[2017-02-20] MEDS ORDERED: Naloxone 0.4 MG/ML INJ IVP PRN (20:12)
[2017-02-20] MEDS ORDERED: *HR* HYDROmorphone (PF) 1 MG/ML SYRINGE IVP PRN (20:12)
--- NOTE | 2017-02-20 20:21 | Internal Med History&Physical ---
Date of Encounter: 02/20/17 Time of Encounter: 19:30 Assessment and Plan (1) Chronic hyponatremia Current visit: No Status: Acute - Na 124 on admission, which is stable compared to prior Na from 3 days ago. - Likely secondary to liver cirrhosis in the setting of reduced oral intake. - Continue IV NS and closely monitor with sodium check q4H. The goal is to increase sodium no faster than 6 mEq over 24 hours. (2) Abdominal pain Current visit: Yes Status: Acute - RLQ abdominal pain. - Likely multifactorial including cholelithiasis (as seen on CT A/P), ascites and pubic bone fracture. - Continue pain control with prn pain medication. Qualifiers: Abdominal location: right lower quadrant Qualified Code(s): R10.31 - Right lower quadrant pain (3) Pubic bone fracture Current visit: Yes Status: Acute - CT A/P found fracture involving the left parasymphyseal pubic bone superiorly and the left inferior pubic ramus with surrounding hematoma. - Continue supportive care with pain control. Qualifiers: Encounter type: subsequent encounter Sublocation of pubis: unspecified portion of pubis Fracture type: closed Laterality: left Fracture healing: with routine healing Qualified Code(s): S32.502D - Unspecified fracture of left pubis, subsequent encounter for fracture with routine healing (4) Cirrhosis of liver with ascites Current visit: No Status: Chronic - CT A/P showed continued cirrhotic morphology of the liver with a large amount of ascites. - May consider paracentesis if abdominal distension aggravates. Qualifiers: Hepatic cirrhosis type: unspecified hepatic cirrhosis Qualified Code(s): K74.60 - Unspecified cirrhosis of liver (5) CKD (chronic kidney disease), stage III Current visit: No Status: Chronic - SCr 1.93 & eGFR 33 today, which seems to be better than patient's baseline ( SCr 2.5 & eGFR 25). - Continue to monitor renal function and electrolytes. (6) AAA (abdominal aortic aneurysm) Current visit: Yes Status: Chronic - CT A/P showed aneruysmal abdominal aorta with size increased when compared to the previous exam, now measuring 3.6 x 2.8 cm maximally. Qualifiers: Presence of rupture: without rupture Qualified Code(s): I71.4 - Abdominal aortic aneurysm, without rupture (7) DVT prophylaxis Current visit: No Status: Acute - Calf pump as mechanical DVT prophylaxis. Internal Medicine - H&P: HPI Chief complaint: RLQ abdominal pain Admitted From: Emergency Dept Plans for Post Hospital Care: Transfer Nursing Home Facility History of present illness: Mr. King is a 86 year old male with PMH of dementia, CKD 4, liver cirrhosis, CAD s/p CABG, PVD s/p BLE stents, HTN, A-fib, AAA and renal artery stenosis s/p left renal arterial stent. Patient was sent from [facility] to [place] [facility] for complaint of RLQ abdominal pain for 3 days. Patient describes it as sharp pain and is aggravated by eating. Patient's last bowel was this AM and patient reports it's normal with brown color and no blood. Patient reports generalized weakness, nausea and cough with white sputum but denies vomiting, fever, shortness of breath, chest pain. Patient recalls having a fall weeks ago and was hospitalized at [facility], where he also got paracentesis. Patient was discharged to halfway and he reports no fall during his halfway stay. Patient admits reduced oral intake recently. Patient is full code. Past Med Surg Social Fam HX - Past Medical History Medical history: atrial fibrillation, cirrhosis, CHF, coronary artery disease, hyperlipidemia, hypertension, myocardial infarction, peripheral artery disease, renal disease, other Psychiatric history: no psych history - Past Surgical History Surgical History: angioplasty/stent, carotid endarterectomy, coronary bypass ( CABG), pacemaker/AICD, vascular surgery, other, pacemaker - Social History Smoking Status: Never smoker Smokeless Tobacco Status: No Alcohol use: none Drug use: none - Family History Father Living Status: Hx Family Cardiac Disorders: Yes Hx Family Endocrine Disorder: Yes Internal Medicine - H&P: Meds Atorvastatin [Lipitor] 40 mg PO HS 06/08/15 [History] Gabapentin [Neurontin] 600 mg PO HS 06/08/15 [History] Garlic 1,000 mg PO DAILY 06/08/15 [History] Metoprolol [Lopressor] 50 mg PO BID 06/08/15 [History] Multivitamin [Flintstones] 1 tab PO DAILY 06/08/15 [History] [place]-3S/Dha/Epa/Fish Oil [Fish Oil 1,200 mg Softgel] 1 cap PO DAILY 06/08/15 [ History] Montelukast [Singulair] 10 mg PO HS 11/05/15 [History] Fluticasone Propionate Nasal [Flonase] 1 spray NS DAILY 11/09/15 [History] Latanoprost 1 drop BOTH EYES HS 11/28/15 [History] Amlodipine Besylate 10 mg PO DAILY 06/12/16 [History] hydrOXYzine HCl [Hydroxyzine HCl] 25 mg PO Q8H PRN 06/12/16 [History] Ferrous Sulfate 325 mg PO BID #60 tablet 07/30/16 [Rx] Calcium Carbonate/Vitamin D3 [Calcium 600 + Vit D Tablet] 1 tab PO TID 10/12/16 [History] Ipratropium/Albuterol Neb [Duoneb] 3 ml IH Q6H PRN 10/12/16 [History] Isosorbide MONOnitrate (24 HR) [Imdur] 30 mg PO DAILY 12/03/16 [History] Lactulose 20 gm PO BID 12/03/16 [History] Tamsulosin [Flomax] 0.8 mg PO DAILY 01/27/17 [History] Furosemide [Lasix] 40 mg PO DAILY #60 tab 01/29/17 [Rx] Allergies clopidogrel [From Plavix] Allergy (Verified 12/03/16 19:46) Itching Cortisone Allergy (Verified 12/03/16 19:46) Joint Pain All Systems PM: A 10-system review of systems was performed and is negative for pertinent findings except as documented above in the HPI. - Constitutional Constitutional: no anorexia, no fever(s) - EENT Eyes: no change in vision Ears: no decreased hearing Nose, mouth and throat: no dysphagia, no odynophagia - Cardiovascular Cardiovascular ROS IM: no chest pain, no edema, no syncope - Respiratory Respiratory: cough, no dyspnea, no hemoptysis, no change in phlegm color - Gastrointestinal Gastrointestinal: as per HPI, abdominal pain, nausea, no diarrhea, no hematochezia, no melena, no vomiting - Genitourinary Genitourinary ROS male: difficulty urinating, dysuria (Occasional burning), no hematuria - Integumentary Integumentary IM: no pruritus, no rash - Neurological Neurological ROS: no focal weakness - Hematologic/Lymphatic Hematologic/Lymphatic: no easy bleeding, no easy bruising - Constitutional Vitals: Temp Pulse Resp BP Pulse Ox 97.8 F 69 18 139/79 98 02/20/17 15:31 02/20/17 17:35 02/20/17 19:16 02/20/17 19:16 02/20/17 17:35 General appearance: Present: cooperative, A&O X 3, no acute distress - Head Head exam: Present: atraumatic, normocephalic - Eye Eye exam: Present: EOMI, PERRL, conjuntiva pink, sclera anicteric - Neck Neck exam general surgery: Present: supple, trachea midline. Absent: lymphadenopathy - Respiratory Respiratory exam: Present: CTAB. Absent: accessory muscle use, rales, rhonchi, wheezes - Cardiovascular Cardiovascular exam: Present: RRR, +S1, +S2. Absent: diastolic murmur, gallop, rubs, systolic murmur - GI/Abdominal GI/Abdominal exam: Present: normal bowel sounds, soft, tenderness (RLQ), no peritoneal signs. Absent: distended - Extremities Exam Extremities exam: Present: warm, radial pulses palpable and symetrical. Absent : calf tenderness, cyanotic, pedal edema - Neurological Exam Neurological exam: Present: CN II-XII intact, oriented X3, no focal deficits. Absent: pronater drift, facial droop, speech deficit - Skin Skin exam: Present: dry, intact, warm Internal Med - H&P Results - Labs CBC & Chem 7: 02/20/17 15:52 02/20/17 15:52
[2017-02-20] MEDS ORDERED: Calcium Gluconate 1,000 MG in D5% in Water 100 ML IVPB ONE (20:23)
[2017-02-20] MEDS ORDERED: hydrOXYzine pamoate 25 MG CAPSULE PO PRN (21:08)
--- NOTE | 2017-02-20 21:34 | Event Note ---
Date of Encounter: 02/20/17 Time of Encounter: 21:32 Patient seen and examined with lpn medical assistant. Patient presents with abdominal pain which may be related to cholelithiasis. He notices that pain occurs after eating. Patient is hyponatremic, sodium 124. He has chronic hyponatremia. He has some nausea generalized weakness lethargy and falls ( sustained pelvic fracture previously). Hyponatremia likely related to liver cirrhosis chronic kidney disease as well as decrease PO intake. Start the patient on normal saline follow sodium Q4 hours. Plan to increase sodium no faster than 6 mEq per 24 hours. He is full code.
[2017-02-20] MEDS: Ipratropium/Albuterol Neb 3 ML IH SCH (22:52)
[2017-02-21] MEDS: *HR* OxyCODONE Immed Rel 5 MG TABLET PO PRN (01:18)
[2017-02-21] MEDS: 0.9 % Sodium Chloride 1,000 ML IVC SCH ×3 (01:19→20:52)
[2017-02-21 01:20] LABS: Basophils % 0.1 %; Eosinophils # 0.2 K/mcL (0.0-0.6); Eosinophils % 2.1 %; Hematocrit 27.9 % (37.5-50.1); Hemoglobin 9.1 g/dL (12.9-16.9); Immature Granulocytes % 0.4 % (0-4); Lymphocytes # 0.7 K/mcL (0.6-4.6); Lymphocytes % 9.1 %; Mean Corpuscular HGB Conc 32.6 g/dL (31.6-35.5); Mean Corpuscular Volume 98.2 fL (83.0-100.0); Mean Platelet Volume 10.1 fL (9.4-12.4); Monocytes # 0.7 K/mcL (0.0-1.3); Monocytes % 9.7 %; Neutrophils # 5.6 K/mcL (1.6-8.9); Platelet Count 160 K/mcL (140-400); Red Blood Count 2.84 M/mcL (4.19-5.50); Red Cell Distribution Width 17.2 % (11.5-14.5); Segmented Neutrophils % 78.6 %
[2017-02-21 01:38] LABS: Albumin 2.9 g/dL (3.5-5.0); Albumin/Globulin Ratio 0.7 (1.1-2.2); Bilirubin,Total 1.1 mg/dL (0.2-1.2); Globulin 4.4 g/dL (2.4-3.5); Potassium 4.8 mEq/L (3.5-4.5); Total Protein 7.3 g/dL (6.0-8.3)
[2017-02-21] MEDS: Ipratropium/Albuterol Neb 3 ML IH SCH ×4 (04:26→22:28)
[2017-02-21] MEDS: Lactulose Oral Soln 20 GM/30 ML UDC PO SCH ×2 (08:14→20:52)
[2017-02-21] MEDS: amLODIPine 5 MG TABLET PO SCH (08:15)
[2017-02-21] MEDS: Isosorbide MONOnitrate (24 HR) 60 MG TAB.ER.24H PO SCH (08:15)
[2017-02-21] MEDS: Fluticasone Propionate Nasal 50 MCG/SPRAY BOTTLE NS SCH (08:20)
--- NOTE | 2017-02-21 12:11 | Internal Med Progress Note ---
Date of Encounter: 02/21/17 Time of Encounter: 12:04 - Assessment and plan (1) Hyponatremia Current Visit: No Status: Chronic Assessment and plan: Na 124 on admission; appears chronic per chart review. Likely secondary to liver cirrhosis in the setting of reduced oral intake. Neurologically intact. Continue IV fluids, monitor serial Na levels. Nephrology consulted. Na 127 on 02/21/2017 (2) Cirrhosis of liver with ascites Current Visit: No Status: Chronic Assessment and plan: known hx cirrhosis. Reportedely had paracentesis 2 months ago with 2 L removed at that time. CT A/P showed continued cirrhotic morphology of the liver with a large amount of ascites. Symptomatic with ABD pain/discomfort. IR consulted for paracentesis, cont home lactulose. Holding diuretics with hyponatremia. Qualifiers: Hepatic cirrhosis type: unspecified hepatic cirrhosis Qualified Code(s): K74.60 - Unspecified cirrhosis of liver (3) Cholelithiasis Current Visit: Yes Status: Acute Assessment and plan: A/P CT with re-demonstration of large gallstone. Lipase normal. Symptomatic with ABD pain. Possibly secondary to large amount ascites. Monitor for now. Consider repeat imaging if ABD pain persist after paracentesis. Qualifiers: Cholelithiasis location: gallbladder Cholecystitis presence: without cholecystitis Biliary obstruction: without biliary obstruction Qualified Code(s): K80.20 - Calculus of gallbladder without cholecystitis without obstruction (4) Pubic bone fracture Current Visit: Yes Status: Acute Assessment and plan: CT A/P with acute appearing fracture involving left parasymphyseal pubic bone with surrounding hematoma. S/p fall 2 months prior to admission; was treated at [facility] at that time. Unclear if this is related to previous fall or new fx. PT/OT consult. Pain control. Ortho consulted Qualifiers: Encounter type: subsequent encounter Sublocation of pubis: unspecified portion of pubis Fracture type: closed Laterality: left Fracture healing: with routine healing Qualified Code(s): S32.502D - Unspecified fracture of left pubis, subsequent encounter for fracture with routine healing (5) AAA (abdominal aortic aneurysm) Current Visit: Yes Status: Chronic Assessment and plan: CT A/P showed aneruysmal abdominal aorta with size increased when compared to the previous exam, now measuring 3.6 x 2.8 cm maximally. Discussed with Radiology on 02/21/2017 and no significant growth noted. Cont BP management. Will need outpatient follow-up Qualifiers: Presence of rupture: without rupture Qualified Code(s): I71.4 - Abdominal aortic aneurysm, without rupture (6) CAD (coronary artery disease) Current Visit: No Status: Chronic Assessment and plan: per hx. Asymptomatic, denies chest pain. Cont home BB, statin, Add ASA. Qualifiers: Coronary Disease-Associated Artery/Lesion type: bypass graft [place] vs. transplanted heart: [place] heart Associated angina: with stable angina Qualified Code(s): I25.708 - Atherosclerosis of coronary artery bypass graft(s) , unspecified, with other forms of angina pectoris (7) DVT prophylaxis Current Visit: No Status: Acute Assessment and plan: SCDs - Time Spent With Patient Greater than 35 minutes - Subjective Interval history: Patient is new to me. Information obtained form chart review and patient report. Still with ABD pain, says better than when admitted. He is concerned and thinks pain is due to gallbladder. Says he wants gall bladder removed. He is agreeable for IR consult for paracentesis. No CP, no SOB - Constitutional Vitals: Temp Pulse Resp BP Pulse Ox 97.8 F 67 16 143/73 99 02/21/17 09:48 02/21/17 09:48 02/21/17 11:15 02/21/17 09:48 02/21/17 11:15 General appearance: Present: cooperative, A&O X 3, no acute distress - Head Head exam: Present: atraumatic, normocephalic - Eye Eye exam: Present: PERRL, conjuntiva pink, sclera anicteric Pupils: Present: PERRL - Neck Neck exam general surgery: Present: supple, trachea midline. Absent: lymphadenopathy - Respiratory Respiratory exam: Present: CTAB. Absent: accessory muscle use, rales, rhonchi, wheezes - Cardiovascular Cardiovascular exam: Present: RRR, +S1, +S2. Absent: diastolic murmur, gallop, rubs, systolic murmur - GI/Abdominal GI/Abdominal exam: Present: distended, firm, normal bowel sounds, soft, tenderness, no peritoneal signs - Extremities Exam Extremities exam: Present: warm, radial pulses palpable and symetrical. Absent : calf tenderness, cyanotic, pedal edema - Neurological Exam Neurological exam: Present: CN II-XII intact, oriented X3, no focal deficits. Absent: pronater drift, facial droop, speech deficit - Skin Skin exam: Present: dry, intact Additional comments: bruising to left arm Internal Medicine: Result - Labs CBC & Chem 7: 02/21/17 01:09 02/21/17 11:10 Labs: Short CBC 02/21/17 Range/Units 01:09 WBC 7.1 (4.3-11.1) K/mcL Hgb 9.1 L (12.9-16.9) g/dL Hct 27.9 L (37.5-50.1) % Plt Count 160 (140-400) K/mcL Neutrophils # 5.6 (1.6-8.9) K/mcL BMP 02/20/17 02/21/17 02/21/17 21:52 01:09 01:09 Sodium 127 L 127 L 127 L Potassium 4.8 H Chloride 96 L Carbon Dioxide 24 BUN 38 H Creatinine 1.77 H Glucose 115 H Calcium 9.0 02/21/17 11:10 Sodium 126 L Potassium Chloride Carbon Dioxide BUN Creatinine Glucose Calcium Liver Function 02/21/17 Range/Units 01:09 Total Bilirubin 1.1 (0.2-1.2) mg/dL AST 33 (5-34) Units/L ALT 26 (0-55) Units/L Alkaline Phosphatase 245 H (38-126) Units/L Albumin 2.9 L (3.5-5.0) g/dL - ABG Interpretation ABG results: PT/INR, D-dimer PT 13.4 Seconds (9.4-12.1) H 02/20/17 15:52 Consult Discharge Plan - Plan Referrals: NONE,PCP [Primary Care Provider] -
--- NOTE | 2017-02-21 13:44 | Nephrology Consult Note ---
Date of Encounter: 02/22/17 Time of Encounter: 13:30 Assessment and Plan (1) Hyponatremia Current Visit: No Status: Chronic Chronic, trending better. Suspect multifactorial etiology. Improving with IVF suggesting a component of hypovolemic hyponatremia. His volume status is much improved without LE edema as compared to a few months ago. No need for 3% saline. Slow, correction rate for hyponatremia is recommended of about 6-8 mEq per 24 hr. Follow a renal protective / supportive strategy for the CKD stage III. Thank you for consulting the [facility]. Will follow with you. (2) CKD (chronic kidney disease), stage III Current Visit: Yes Status: Chronic Slightly improved to above prior eGFR in the upper 20s, so currently in CKD stage III. (3) Hyperkalemia Current Visit: Yes Status: Acute Renal diet. History of Present Illness - Reason for Consult Consult date: 02/21/17 Chronic Kidney Disease, hyponatremia Requesting physician: Jacquie Perales - Chief Complaint Fatigue - History of Present Illness Roman King is a very pleasant 86 y/o WM with a pmh of chronic CKD, hyponatremia, and t al who presented some fatigue. He did not affirm N/V/D or seizures recently. He was by himself and was very slow to speak. He did not have CP, FERNÁNDEZ, new tremor or recent other major complaints while I spoke with him. Past Med Surg Social Fam HX - Past Medical History Medical history: atrial fibrillation, cirrhosis, CHF, coronary artery disease, hyperlipidemia, hypertension, myocardial infarction, peripheral artery disease, renal disease, other Psychiatric history: no psych history - Past Surgical History Surgical History: angioplasty/stent, carotid endarterectomy, coronary bypass ( CABG), pacemaker/AICD, vascular surgery, other, pacemaker - Social History Smoking Status: Never smoker Smokeless Tobacco Status: No Alcohol use: none Drug use: none - Family History Father Living Status: Hx Family Cardiac Disorders: Yes Hx Family Endocrine Disorder: Yes Medications and Allergies Atorvastatin [Lipitor] 40 mg PO HS 06/08/15 [History] Gabapentin [Neurontin] 600 mg PO HS 06/08/15 [History] Garlic 1,000 mg PO DAILY 06/08/15 [History] Metoprolol [Lopressor] 50 mg PO BID 06/08/15 [History] Multivitamin [Flintstones] 1 tab PO DAILY 06/08/15 [History] [place]-3S/Dha/Epa/Fish Oil [Fish Oil 1,200 mg Softgel] 1 cap PO DAILY 06/08/15 [ History] Montelukast [Singulair] 10 mg PO HS 11/05/15 [History] Fluticasone Propionate Nasal [Flonase] 1 spray NS DAILY 11/09/15 [History] Latanoprost 1 drop BOTH EYES HS 11/28/15 [History] Amlodipine Besylate 10 mg PO DAILY 06/12/16 [History] hydrOXYzine HCl [Hydroxyzine HCl] 25 mg PO Q8H PRN 06/12/16 [History] Ferrous Sulfate 325 mg PO BID #60 tablet 07/30/16 [Rx] Calcium Carbonate/Vitamin D3 [Calcium 600 + Vit D Tablet] 1 tab PO TID 10/12/16 [History] Ipratropium/Albuterol Neb [Duoneb] 3 ml IH Q6H PRN 10/12/16 [History] Isosorbide MONOnitrate (24 HR) [Imdur] 30 mg PO DAILY 12/03/16 [History] Lactulose 20 gm PO BID 12/03/16 [History] Tamsulosin [Flomax] 0.8 mg PO DAILY 01/27/17 [History] Furosemide [Lasix] 40 mg PO DAILY #60 tab 01/29/17 [Rx] Allergies clopidogrel [From Plavix] Allergy (Verified 12/03/16 19:46) Itching Cortisone Allergy (Verified 12/03/16 19:46) Joint Pain Review of Systems All Systems: reviewed and no additional remarkable complaints except as stated Exam - Vital Signs Vital signs: Initial Vital Signs Temp Pulse Resp BP Pulse Ox 97.8 F 63 18 136/79 99 02/20/17 15:31 02/20/17 15:31 02/20/17 15:31 02/20/17 15:31 02/20/17 15:31 Vital Signs - Last 8 Hours Temp Pulse Resp BP Pulse Ox 02/21/17 11:15 16 99 02/21/17 09:48 97.8 F 67 16 143/73 97 02/21/17 06:46 97.8 F 64 16 146/68 99 Intake and Output 02/20/17 02/21/17 02/21/17 23:59 07:59 15:59 Intake Total 0 / 0 1000 / 1000 240 / 240 Output Total 300 / 300 425 / 425 400 / 400 Balance -300 / -300 575 / 575 -160 / -160 Intake: IV Fluids 1000 / 1000 0.9 % Sodium Chloride 1, 1000 / 1000 000 ML @ 125 mls/hr IVC . Q8H [facility] Rx#:[id number] Oral 0 / 0 0 / 0 240 / 240 Output: Urine 300 / 300 425 / 425 400 / 400 Other: # Urine Diapers 1 Weight 74.752 kg - General Appearance General appearance: appears started age, chronically ill, fatigue, frail EENT: ATNC, mucous membranes dry Neck: supple Respiratory: clear Cardiology: no edema, normal S1, normal S2 Gastrointestinal: no tenderness, no guarding Integumentary: warm and dry Neurologic: no asterixis Musculoskeletal: no cyanosis, no clubbing Psychiatric: mood/affect appropriate, cooperative Results - Lab Results 02/21/17 01:09 02/21/17 21:25 Most recent lab results Calcium 9.0 mg/dL (8.6-10.8) 02/21/17 01:09 Reviewed above autogenerated data from 02/21/17, and also reviewed the progress notes, labs, vitals, imaging and meds. Consult Discharge Plan - Plan Referrals: NONE,PCP [Primary Care Provider] -
[2017-02-21] MEDS: Gabapentin 300 MG CAPSULE PO SCH (20:53)
[2017-02-22] MEDS: 0.9 % Sodium Chloride 1,000 ML IVC SCH ×3 (01:13→19:50)
[2017-02-22] MEDS: Ipratropium/Albuterol Neb 3 ML IH SCH ×4 (04:04→22:03)
[2017-02-22 04:13] LABS: Hematocrit 25.8 % (37.5-50.1); Hemoglobin 8.4 g/dL (12.9-16.9); Mean Corpuscular HGB Conc 32.6 g/dL (31.6-35.5); Mean Corpuscular Hemoglobin 32.4 pg (28.0-33.3); Mean Corpuscular Volume 99.6 fL (83.0-100.0); Mean Platelet Volume 10.5 fL (9.4-12.4); Platelet Count 160 K/mcL (140-400); Red Blood Count 2.59 M/mcL (4.19-5.50); Red Cell Distribution Width 17.7 % (11.5-14.5)
[2017-02-22 04:29] LABS: Albumin 2.6 g/dL (3.5-5.0); Albumin/Globulin Ratio 0.6 (1.1-2.2); Bilirubin,Total 0.8 mg/dL (0.2-1.2); Calcium 8.2 mg/dL (8.6-10.8); Globulin 4.1 g/dL (2.4-3.5); Potassium 4.7 mEq/L (3.5-4.5); Total Protein 6.7 g/dL (6.0-8.3)
[2017-02-22 04:34] LABS: % Iron Saturation 23 % (20-55); Iron 65 mcg/dL (65-175); Transferrin 199 mg/dL (174-364)
[2017-02-22 05:04] LABS: Folate 11.6 ng/mL (7.0-31.4)
[2017-02-22] MEDS: Isosorbide MONOnitrate (24 HR) 60 MG TAB.ER.24H PO SCH (07:23)
[2017-02-22] MEDS: Lactulose Oral Soln 20 GM/30 ML UDC PO SCH ×2 (07:23→19:58)
[2017-02-22] MEDS: Aspirin 81 MG TAB.CHEW PO SCH (07:23)
[2017-02-22] MEDS: amLODIPine 5 MG TABLET PO SCH (07:24)
[2017-02-22] MEDS: Fluticasone Propionate Nasal 50 MCG/SPRAY BOTTLE NS SCH (07:26)
[2017-02-22] MEDS ORDERED: Furosemide 40 MG TABLET PO SCH (09:00)
--- NOTE | 2017-02-22 10:18 | Nephrology Progress Note ---
Date of Encounter: 02/22/17 Time of Encounter: 10:17 - Assessment and Plan (1) Hyponatremia Current Visit: No Status: Chronic Slowly correcting: agree with gentle IVF. Relatively stable CKD, currently in stage IIIb Continue to follow a renal protective/supportive strategy. No need for HD at this time. Thank you. (2) CKD (chronic kidney disease), stage III Current Visit: Yes Status: Chronic Stable CKD stage III (3) Hyperkalemia Current Visit: Yes Status: Acute Mild, and will monitor. Low K+ diet. (4) BPH w urinary obs/LUTS Current Visit: Yes Status: Chronic Continue Flomax, but since the pt is reported more urinary frequency than normal , I recommend adding Finasteride in addition to the Flomax. Subjective Principal diagnosis: Hyponatremia Interval history: He reported having some heal pain and wanted to place a pillow under his heals. He reported having some difficulty with emptying his bladder. He takes Flomax routinely. Objective - Vital Signs Vital signs: Vital Signs Temp Pulse Resp BP Pulse Ox 02/22/17 07:22 98.3 F 62 18 120/61 97 02/22/17 05:07 98.2 F 67 15 125/76 96 02/22/17 04:04 16 95 02/22/17 00:49 98.0 F 70 15 116/55 94 02/21/17 22:28 16 96 02/21/17 19:46 98.1 F 61 16 120/68 96 02/21/17 15:53 16 96 02/21/17 14:26 98 F 64 16 137/78 97 02/21/17 11:15 16 99 Intake and Output 02/21/17 02/22/17 02/22/17 23:59 07:59 15:59 Intake Total 1000 / 1000 1200 / 1200 360 / 360 Output Total 0 / 0 200 / 200 Balance 1000 / 1000 1000 / 1000 360 / 360 Intake: IV Fluids 1000 / 1000 1200 / 1200 0.9 % Sodium Chloride 1, 1000 / 1000 1200 / 1200 000 ML @ 125 mls/hr IVC . Q8H [facility] Rx#:[id number] Oral 0 / 0 0 / 0 360 / 360 Output: Urine 0 / 0 200 / 200 Other: Meal Breakfast Percent of Meal Consumed 100% Weight 75.2 kg Patient Weight 02/22/17 23:59 Weight 75.2 kg - General Appearance Exam: General appearance: appears started age, chronically ill, fatigue, frail EENT: ATNC, mucous membranes dry Neck: supple Respiratory: clear Cardiology: no edema, normal S1, normal S2 Gastrointestinal: no tenderness, no guarding Integumentary: warm and dry Neurologic: no asterixis Musculoskeletal: no cyanosis, no clubbing Psychiatric: mood/affect appropriate, cooperative - Lab 02/22/17 03:43 02/22/17 16:03 Most recent lab results Calcium 8.2 mg/dL (8.6-10.8) L 02/22/17 03:43 - VTE Documentation of Mechanical Device: Intermittent pneumatic compression device Consult Discharge Plan - Plan Referrals: NONE,PCP [Primary Care Provider] -
--- NOTE | 2017-02-22 10:57 | Internal Med Progress Note ---
Date of Encounter: 02/22/17 Time of Encounter: 10:54 - Assessment and plan (1) Ascites Current Visit: Yes Status: Acute Assessment and plan: Patient with cirrhosis and ascites with history of paracentesis in the past. He presented with abdominal pain and distention due to ascites. Patient reports abdominal pain is himproved but still feeling full with ascites. IR is consulted for planned paracentesis tomorrow. Qualifiers: Ascites type: other type Qualified Code(s): R18.8 - Other ascites (2) Hyponatremia Current Visit: Yes Status: Acute Assessment and plan: Patient presented with sodium of 124, he has chronic hyponatremia. IV fluids 0.9NS at 125mL/hr. Hyponatremia slowly improving with fluids, today 128. Continue IV fluids. Dr. Owen of nephrology following, appreciate recommendations. (3) CKD (chronic kidney disease) stage 4, GFR 15-29 ml/min Current Visit: Yes Status: Chronic Assessment and plan: Creatinine of 1.94 today is consistent with baseline. Will avoid NSAIDs and nephrotoxins. Dr. Owen of nephrology following, appreciate recommendations. (4) Pubic bone fracture Current Visit: Yes Status: Acute Assessment and plan: CT A/P with acute appearing fracture involving left parasymphyseal pubic bone with surrounding hematoma. He had a fall 2 months prior to admission and was treated at [facility] at that time. Unclear if this is related to his previous fall or if it is a new fracture. Orthopedic surgery consulted for evaluation. PT/OT consulted. Qualifiers: Encounter type: subsequent encounter Sublocation of pubis: unspecified portion of pubis Fracture type: closed Laterality: left Fracture healing: with routine healing Qualified Code(s): S32.502D - Unspecified fracture of left pubis, subsequent encounter for fracture with routine healing (5) AAA (abdominal aortic aneurysm) Current Visit: Yes Status: Chronic Assessment and plan: CT A/P showed aneruysmal abdominal aorta with size increased when compared to the previous exam, now measuring 3.6 x 2.8 cm maximally. Discussed with Radiology on 02/21/2017 and no significant growth noted. Cont BP management. Will need outpatient follow-up Qualifiers: Presence of rupture: without rupture Qualified Code(s): I71.4 - Abdominal aortic aneurysm, without rupture (6) CAD (coronary artery disease) Current Visit: No Status: Chronic Assessment and plan: Asymptomatic, denies chest pain. Cont home BB, statin, Add ASA. Qualifiers: Coronary Disease-Associated Artery/Lesion type: bypass graft [place] vs. transplanted heart: [place] heart Associated angina: with stable angina Qualified Code(s): I25.708 - Atherosclerosis of coronary artery bypass graft(s) , unspecified, with other forms of angina pectoris (7) Anemia Current Visit: Yes Status: Chronic Assessment and plan: Hgb of 8.4 today, down from 9.1 yesterday. May be dilutional with IV fluids. iron studies normal. Patient denies black or bloody stools. FOB pending. Qualifiers: Anemia type: unspecified type Qualified Code(s): D64.9 - Anemia, unspecified (8) DVT prophylaxis Current Visit: Yes Status: Acute Assessment and plan: SCDs - Subjective Interval history: Patient reporting he is feeling better today, denies abdominal pain, but still feels swollen due to ascites and is looking forward to paracentesis. Sodium is gradually improving with IV fluids and nephrology is following. Hgb down to 8.4 from 9.1, iron studies normal, may be dilutional with IV fluids, but FOB is pending. Plan for IR tomorrow for paracentesis. - Constitutional Vitals: Temp Pulse Resp BP Pulse Ox 98.3 F 62 18 120/61 97 02/22/17 07:22 02/22/17 07:22 02/22/17 07:22 02/22/17 07:22 02/22/17 07:22 General appearance: Present: cooperative, A&O X 3, no acute distress - Head Head exam: Present: atraumatic, normocephalic - Eye Eye exam: Present: PERRL, conjuntiva pink, sclera anicteric Pupils: Present: PERRL - Neck Neck exam general surgery: Present: supple, trachea midline. Absent: lymphadenopathy - Respiratory Respiratory exam: Present: CTAB. Absent: accessory muscle use, rales, rhonchi, wheezes - Cardiovascular Cardiovascular exam: Present: RRR, +S1, +S2. Absent: diastolic murmur, gallop, rubs, systolic murmur - GI/Abdominal GI/Abdominal exam: Present: distended, firm, normal bowel sounds, no peritoneal signs. Absent: tenderness - Extremities Exam Extremities exam: Present: warm, radial pulses palpable and symetrical. Absent : calf tenderness, cyanotic, pedal edema - Neurological Exam Neurological exam: Present: CN II-XII intact, oriented X3, no focal deficits. Absent: facial droop, speech deficit - Skin Skin exam: Present: dry, intact Internal Medicine: Result - Labs CBC & Chem 7: 02/22/17 03:43 02/22/17 09:13 Labs: All Lab Results (24 Hours) 02/21/17 02/21/17 02/21/17 Range/Units 11:10 16:01 21:25 WBC (4.3-11.1) K/mcL RBC (4.19-5.50) M/mcL Hgb (12.9-16.9) g/dL Hct (37.5-50.1) % MCV (83.0-100.0) fL MCH (28.0-33.3) pg MCHC (31.6-35.5) g/dL RDW (11.5-14.5) % Plt Count (140-400) K/mcL MPV (9.4-12.4) fL Sodium 126 L 127 L 128 L (136-145) mEq/L Potassium (3.5-4.5) mEq/L Chloride (98-109) mEq/L Carbon Dioxide (19-29) mEq/L BUN (8-26) mg/dL Creatinine (0.72-1.25) mg/dL Est GFR ( Amer) (> 60) Est GFR (Non-Af Amer) (> 60) BUN/Creatinine Ratio (6-26) Glucose (70-99) mg/dL Calculated Osmolality (280-300) Calcium (8.6-10.8) mg/dL Iron (65-175) mcg/dL % Saturation (20-55) % Transferrin (174-364) mg/dL Total Bilirubin (0.2-1.2) mg/dL AST (5-34) Units/L ALT (0-55) Units/L Alkaline Phosphatase (38-126) Units/L Serum Total Protein (6.0-8.3) g/dL Albumin (3.5-5.0) g/dL Globulin (2.4-3.5) g/dL Albumin/Globulin Ratio (1.1-2.2) Vitamin B12 (213-816) pg/mL Folate (7.0-31.4) ng/mL 02/22/17 02/22/17 02/22/17 Range/Units 03:43 03:43 03:43 WBC 7.0 (4.3-11.1) K/mcL RBC 2.59 L (4.19-5.50) M/mcL Hgb 8.4 L (12.9-16.9) g/dL Hct 25.8 L (37.5-50.1) % MCV 99.6 (83.0-100.0) fL MCH 32.4 (28.0-33.3) pg MCHC 32.6 (31.6-35.5) g/dL RDW 17.7 H (11.5-14.5) % Plt Count 160 (140-400) K/mcL MPV 10.5 (9.4-12.4) fL Sodium 128 L (136-145) mEq/L Potassium 4.7 H (3.5-4.5) mEq/L Chloride 100 (98-109) mEq/L Carbon Dioxide 23 (19-29) mEq/L BUN 37 H (8-26) mg/dL Creatinine 1.94 H (0.72-1.25) mg/dL Est GFR ( Amer) 40 L (> 60) Est GFR (Non-Af Amer) 33 L (> 60) BUN/Creatinine Ratio 19 (6-26) Glucose 113 H (70-99) mg/dL Calculated Osmolality 275 L (280-300) Calcium 8.2 L (8.6-10.8) mg/dL Iron (65-175) mcg/dL % Saturation (20-55) % Transferrin (174-364) mg/dL Total Bilirubin 0.8 (0.2-1.2) mg/dL AST 26 (5-34) Units/L ALT 19 (0-55) Units/L Alkaline Phosphatase 228 H (38-126) Units/L Serum Total Protein 6.7 (6.0-8.3) g/dL Albumin 2.6 L (3.5-5.0) g/dL Globulin 4.1 H (2.4-3.5) g/dL Albumin/Globulin Ratio 0.6 L (1.1-2.2) Vitamin B12 569 (213-816) pg/mL Folate 11.6 (7.0-31.4) ng/mL 02/22/17 02/22/17 Range/Units 03:43 09:13 WBC (4.3-11.1) K/mcL RBC (4.19-5.50) M/mcL Hgb (12.9-16.9) g/dL Hct (37.5-50.1) % MCV (83.0-100.0) fL MCH (28.0-33.3) pg MCHC (31.6-35.5) g/dL RDW (11.5-14.5) % Plt Count (140-400) K/mcL MPV (9.4-12.4) fL Sodium 127 L (136-145) mEq/L Potassium (3.5-4.5) mEq/L Chloride (98-109) mEq/L Carbon Dioxide (19-29) mEq/L BUN (8-26) mg/dL Creatinine (0.72-1.25) mg/dL Est GFR ( Amer) (> 60) Est GFR (Non-Af Amer) (> 60) BUN/Creatinine Ratio (6-26) Glucose (70-99) mg/dL Calculated Osmolality (280-300) Calcium (8.6-10.8) mg/dL Iron 65 (65-175) mcg/dL % Saturation 23 (20-55) % Transferrin 199 (174-364) mg/dL Total Bilirubin (0.2-1.2) mg/dL AST (5-34) Units/L ALT (0-55) Units/L Alkaline Phosphatase (38-126) Units/L Serum Total Protein (6.0-8.3) g/dL Albumin (3.5-5.0) g/dL Globulin (2.4-3.5) g/dL Albumin/Globulin Ratio (1.1-2.2) Vitamin B12 (213-816) pg/mL Folate (7.0-31.4) ng/mL - ABG Interpretation ABG results: PT/INR, D-dimer PT 13.4 Seconds (9.4-12.1) H 02/20/17 15:52 - Diagnostic Studies CT scan - abdomen Additional comments: Abdomen/Pelvis CT 02/20/17 15:36 IMPRESSION: 1. Acute appearing fracture involving the left parasymphyseal pubic bone superiorly and the left inferior pubic ramus. Surrounding hematoma noted as well. 2. Continued cirrhotic morphology of the liver with a large amount of ascites. 3. Cholelithiasis. 4. Abdominal aortic aneurysm, which has increased when compared to the previous exam, with recommendations below. D/ / Moy Gallardo MD / Moy Gallardo MD Interpreting Provider: Moy Gallardo MD Chest x-ray Additional comments: Chest X-Ray 02/20/17 17:08 IMPRESSION: Mild degree of pulmonary vascular congestion without overt pulmonary edema. D/ / 02/20/2017 17:30:40 Paulie Alcaraz MD / gamaliel Interpreting Provider: Paulie Alcaraz MD - VTE Documentation of Mechanical Device: Intermittent pneumatic compression device Consult Discharge Plan - Plan Referrals: NONE,PCP [Primary Care Provider] -
[2017-02-22 11:38] LABS: Bilirubin,Urine Negative (Negative); Blood,Urine Small (Negative); Clarity,Urine Turbid (Clear); Color,Urine Yellow (Yellow); Glucose,Urine (UA) Normal (Normal); Ketones,Urine Negative (Negative); Leukocyte Esterase,Urine Large (Negative); Nitrite,Urine Positive (Negative); PH,Urine 6.5 pH Units (5.0-8.0); Protein,Urine 30 mg/dL (Neg-Trace); Specific Gravity,Urine 1.013 (1.010-1.025); Urobilinogen,Urine Normal (Normal)
[2017-02-22 11:41] LABS: Bacteria,Urine Many per hpf (None-Few); Hyaline Casts,Urine None Seen per lpf (None-Few); Squamous Epithelial Cell,Urine Moderate per lpf (None-Few); WBC,Urine TNTC per hpf (0-3)
[2017-02-22] MEDS: Finasteride 5 MG TABLET PO SCH (17:15)
[2017-02-22] MEDS: Gabapentin 300 MG CAPSULE PO SCH (19:58)
[2017-02-23] MEDS: *HR* OxyCODONE Immed Rel 5 MG TABLET PO PRN (01:52)
[2017-02-23] MEDS: 0.9 % Sodium Chloride 1,000 ML IVC SCH ×3 (03:05→19:41)
[2017-02-23] MEDS: Ipratropium/Albuterol Neb 3 ML IH SCH ×4 (03:10→22:24)
[2017-02-23 06:05] LABS: Calcium 8.2 mg/dL (8.6-10.8); Potassium 4.6 mEq/L (3.5-4.5)
[2017-02-23] MEDS: Aspirin 81 MG TAB.CHEW PO SCH (07:46)
[2017-02-23] MEDS: Finasteride 5 MG TABLET PO SCH (07:46)
[2017-02-23] MEDS: Lactulose Oral Soln 20 GM/30 ML UDC PO SCH ×2 (07:46→19:42)
[2017-02-23] MEDS: Isosorbide MONOnitrate (24 HR) 60 MG TAB.ER.24H PO SCH (07:47)
[2017-02-23] MEDS: Fluticasone Propionate Nasal 50 MCG/SPRAY BOTTLE NS SCH (07:48)
[2017-02-23] MEDS: amLODIPine 5 MG TABLET PO SCH (07:48)
--- NOTE | 2017-02-23 08:14 | Orthopedic Consult Note ---
Date of Encounter: 02/23/17 Time of Encounter: 08:00 Assessment and Plan (1) Pubic bone fracture Current Visit: Yes Status: Acute Fracture occured approximately 4 weeks ago per patient. He was seen at [place] s/ p a fall. Healing fracture noted. Plan: WBAT, with assistance. Encourage PT/OT as tolerated and stable from medical standpoint. Pain Control. He is currently following ortho in [place] for this and has requested to keep this f/up. Currently residing at [facility] for Rehab. Stable from orthopedic standpoint. Plan discussed with patient, he voiced understanding. in agreement with plan. History of Present Illness Chief complaint: Fall 4 weeks ago HPI: Mr. King is a 86 year old male, sitting comfortably in chair. Orthopedics consulted for Left Pubic ramus fracture identified on CT of ABD. Upon questioning patient, he admits to a fall approximately 1 month ago where he sustained a Left hip fracture and head contusion. He was seen and treated at [facility], and he is currently following orthopedics in [place] for this. He admits to ambulating with assistance at Rehab at [facility]. He states he is able to ambulate with a walker with minimal pain. CT reviewed by myself and - stable fracture. He denies N/T or new trauma or fall. No calf tenderness or lower extremity swelling. No erythema, ecchymosis or obvious deformity noted to Lower extremities. Well healed incision to head. HIP ROM limited, but painfree. NV intact distally. Past Med Surg Social Fam HX - Past Medical History Medical history: atrial fibrillation, cirrhosis, CHF, coronary artery disease, hyperlipidemia, hypertension, myocardial infarction, peripheral artery disease, renal disease, other Psychiatric history: no psych history - Past Surgical History Surgical History: angioplasty/stent, carotid endarterectomy, coronary bypass ( CABG), pacemaker/AICD, vascular surgery, other, pacemaker - Social History Smoking Status: Never smoker Smokeless Tobacco Status: No Alcohol use: none Drug use: none - Family History Father Living Status: Hx Family Cardiac Disorders: Yes Hx Family Endocrine Disorder: Yes Medications and Allergies RX: Atorvastatin [Lipitor] 40 mg PO HS 06/08/15 [History] RX: Gabapentin [Neurontin] 600 mg PO HS 06/08/15 [History] RX: Garlic 1,000 mg PO DAILY 06/08/15 [History] RX: Metoprolol [Lopressor] 50 mg PO BID 06/08/15 [History] RX: Multivitamin [Flintstones] 1 tab PO DAILY 06/08/15 [History] RX: [place]-3S/Dha/Epa/Fish Oil [Fish Oil 1,200 mg Softgel] 1 cap PO DAILY [History] RX: Montelukast [Singulair] 10 mg PO HS 11/05/15 [History] RX: Fluticasone Propionate Nasal [Flonase] 1 spray NS DAILY 11/09/15 [History] RX: Latanoprost 1 drop BOTH EYES HS 11/28/15 [History] RX: Amlodipine Besylate 10 mg PO DAILY 06/12/16 [History] RX: hydrOXYzine HCl [Hydroxyzine HCl] 25 mg PO Q8H PRN 06/12/16 [History] RX: Ferrous Sulfate 325 mg PO BID #60 tablet 07/30/16 [Rx] RX: Calcium Carbonate/Vitamin D3 [Calcium 600 + Vit D Tablet] 1 tab PO TID 10/12 [History] RX: Ipratropium/Albuterol Neb [Duoneb] 3 ml IH Q6H PRN 10/12/16 [History] RX: Isosorbide MONOnitrate (24 HR) [Imdur] 30 mg PO DAILY 12/03/16 [History] RX: Lactulose 20 gm PO BID 12/03/16 [History] RX: Tamsulosin [Flomax] 0.8 mg PO DAILY 01/27/17 [History] RX: Furosemide [Lasix] 40 mg PO DAILY #60 tab 01/29/17 [Rx] Allergies clopidogrel [From Plavix] Allergy (Verified 12/03/16 19:46) Itching Cortisone Allergy (Verified 12/03/16 19:46) Joint Pain All Systems Reviewed: A 10-system review of systems was performed and is negative for pertinent findings except as documented above in the HPI. - Constitutional Constitutional: as per HPI - Cardiovascular Cardiovascular: no chest pain, no chest pain at rest, no syncope - Respiratory Respiratory: as per HPI, no cough, no dyspnea - Musculoskeletal Musculoskeletal: as per HPI Physical Exam - Constitutional Vitals: Temp Pulse Resp BP Pulse Ox 98.1 F 60 18 112/62 96 02/23/17 06:46 02/23/17 06:46 02/23/17 06:46 02/23/17 06:46 02/23/17 06:46 - Fracture left pelvis Location of fracture: Acute appearing fracture involving the left parasymphyseal pubic bone Appearance: normal Results - Labs Result Diagrams: 02/22/17 03:43 02/23/17 04:47 Labs: Abnormal lab results RBC 2.59 M/mcL (4.19-5.50) L 02/22/17 03:43 Hgb 8.4 g/dL (12.9-16.9) L 02/22/17 03:43 Hct 25.8 % (37.5-50.1) L 02/22/17 03:43 RDW 17.7 % (11.5-14.5) H 02/22/17 03:43 PT 13.4 Seconds (9.4-12.1) H 02/20/17 15:52 Sodium 125 mEq/L (136-145) L 02/23/17 04:47 Potassium 4.6 mEq/L (3.5-4.5) H 02/23/17 04:47 BUN 35 mg/dL (8-26) H 02/23/17 04:47 Creatinine 1.98 mg/dL (0.72-1.25) H 02/23/17 04:47 Est GFR ( Amer) 39 (> 60) L 02/23/17 04:47 Est GFR (Non-Af Amer) 32 (> 60) L 02/23/17 04:47 Glucose 106 mg/dL (70-99) H 02/23/17 04:47 Calculated Osmolality 268 (280-300) L 02/23/17 04:47 Calcium 8.2 mg/dL (8.6-10.8) L 02/23/17 04:47 Direct Bilirubin 0.8 mg/dL (0.0-0.5) H 02/20/17 15:52 Alkaline Phosphatase 228 Units/L (38-126) H 02/22/17 03:43 Ammonia 16 mcmol/L (18-72) L 02/20/17 15:52 Albumin 2.6 g/dL (3.5-5.0) L 02/22/17 03:43 Globulin 4.1 g/dL (2.4-3.5) H 02/22/17 03:43 Albumin/Globulin Ratio 0.6 (1.1-2.2) L 02/22/17 03:43 Urine Clarity Turbid (Clear) A 02/22/17 11:23 Urine Protein 30 mg/dL (Neg-Trace) H 02/22/17 11:23 Urine Blood Small (Negative) H 02/22/17 11:23 Urine Nitrite Positive (Negative) A 02/22/17 11:23 Ur Leukocyte Esterase Large (Negative) H 02/22/17 11:23 Urine Microscopic RBC 5-15 per hpf (0-3) H 02/22/17 11:23 Urine Microscopic WBC TNTC per hpf (0-3) H 02/22/17 11:23 Ur Squamous Epith Cells Moderate per lpf (None-Few) H 02/22/17 11:23 Urine Bacteria Many per hpf (None-Few) H 02/22/17 11:23 Ur Culture Indicated? YES (NO) A 02/22/17 11:23 All other labs normal. ABD CT: Acute appearing fracture involving the left parasymphyseal pubic bone superiorly and the left inferior pubic ramus reviewed. Consult Discharge Plan - Plan Referrals: NONE,PCP [Primary Care Provider] -
--- NOTE | 2017-02-23 14:36 | Internal Med Progress Note ---
Date of Encounter: 02/23/17 Time of Encounter: 10:50 - Assessment and plan (1) Cirrhosis of liver with ascites Current Visit: No Status: Chronic Assessment and plan: Cirrhosis of liver with chronic ascites paracentesis 2 months ago with 2 L removed at that time CT A/P - continued cirrhotic morphology of the liver with a large amount of ascites, cholelithiasis, AAA Chest x-ray - mild pulmonary edema IR consulted for paracentesis Continue home Lactulose Cardiac telemetry, labs in a.m., and dissipated discharged to ECF soon Qualifiers: Hepatic cirrhosis type: unspecified hepatic cirrhosis Qualified Code(s): K74.60 - Unspecified cirrhosis of liver (2) Hyponatremia Current Visit: No Status: Acute Assessment and plan: Sodium - 125 - slowly correcting Continue gentle IV fluids Nephrology consult - recommendations reviewed, appreciate input (3) CKD (chronic kidney disease) stage 4, GFR 15-29 ml/min Current Visit: Yes Status: Chronic Assessment and plan: Creatinine of 1.98 - likely at baseline Will avoid NSAIDs and nephrotoxins Dr. Owen of nephrology following - appreciate recommendations (4) Pubic bone fracture Current Visit: Yes Status: Acute Assessment and plan: CT A/P with acute appearing fracture involving left parasymphyseal pubic bone with surrounding hematoma S/p fall 2 months prior to admission and was treated at [facility] Orthopedic consult - recommendations reviewed, advised outpatient follow-up in [place] PT/OT consulted Qualifiers: Encounter type: subsequent encounter Sublocation of pubis: unspecified portion of pubis Fracture type: closed Laterality: left Fracture healing: with routine healing Qualified Code(s): S32.502D - Unspecified fracture of left pubis, subsequent encounter for fracture with routine healing (5) AAA (abdominal aortic aneurysm) Current Visit: Yes Status: Chronic Assessment and plan: CT A/P showed aneruysmal abdominal aorta with size increased when compared to the previous exam, now measuring 3.6 x 2.8 cm maximally Discussed with Radiology on 02/21/2017 and no significant change noted Cont BP management Will need outpatient follow-up Qualifiers: Presence of rupture: without rupture Qualified Code(s): I71.4 - Abdominal aortic aneurysm, without rupture (6) BPH w urinary obs/LUTS Current Visit: Yes Status: Chronic Assessment and plan: Continue Flomax and finasteride (7) CAD (coronary artery disease) Current Visit: No Status: Chronic Assessment and plan: Stable - anginal symptoms Cont home BB, statin, Add ASA Qualifiers: Coronary Disease-Associated Artery/Lesion type: bypass graft [place] vs. transplanted heart: [place] heart Associated angina: with stable angina Qualified Code(s): I25.708 - Atherosclerosis of coronary artery bypass graft(s) , unspecified, with other forms of angina pectoris (8) Atrial fibrillation, permanent Current Visit: No Status: Chronic Assessment and plan: Chronic A. fib - controlled Continue metoprolol home dose Patient does not seem to be on any anticoagulation at home - probably due to bleeding risk and fall risk (9) DVT prophylaxis Current Visit: Yes Status: Acute Assessment and plan: SCDs - Time Spent With Patient 25 - 35 minutes - Subjective Interval history: Examined this morning. Patient is awake and alert. Not in any distress. Sitting up comfortably in chair. Denies chest pain or shortness of breath. Denies abdominal pain but complains of abdominal swelling. Sodium level is 125. IR has been consulted for paracentesis, to be done later today. No fever. Hemodynamically stable. Anticipate discharge to ECF soon. - Constitutional Vitals: Temp Pulse Resp BP Pulse Ox 97.8 F 64 18 118/62 100 02/23/17 10:52 02/23/17 10:52 02/23/17 10:52 02/23/17 10:52 02/23/17 10:52 General appearance: Present: cooperative, A&O X 3, no acute distress, answers questions appropriately - Head Head exam: Present: atraumatic - Eye Eye exam: Present: EOMI - ENT ENT exam: Present: mucous membranes moist - Neck Neck exam general surgery: Present: supple - Respiratory Respiratory exam: Present: CTAB. Absent: rales, rhonchi, wheezes, tachypnea - Cardiovascular Cardiovascular exam: Present: RRR, +S1, +S2 - GI/Abdominal GI/Abdominal exam: Present: distended (Ascites present), firm, normal bowel sounds. Absent: guarding, soft, tenderness - Extremities Exam Extremities exam: Present: pedal edema (Mild bilateral), radial pulses palpable and symetrical. Absent: calf tenderness, cyanotic - Neurological Exam Neurological exam: Present: alert, oriented X3, no focal deficits. Absent: facial droop, speech deficit Internal Medicine: Result - Labs CBC & Chem 7: 02/22/17 03:43 02/23/17 04:47 - ABG Interpretation ABG results: PT/INR, D-dimer PT 13.4 Seconds (9.4-12.1) H 02/20/17 15:52 - VTE Documentation of Mechanical Device: Intermittent pneumatic compression device Consult Discharge Plan - Plan Referrals: NONE,PCP [Primary Care Provider] -
--- NOTE | 2017-02-23 15:15 | Electrocardiograph Report ---
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
[2017-02-23] MEDS: Gabapentin 300 MG CAPSULE PO SCH (19:41)
--- NOTE | 2017-02-23 23:16 | Nephrology Progress Note ---
Date of Encounter: 02/23/17 Time of Encounter: 17:15 - Assessment and Plan (1) Ascites Current Visit: Yes Status: Acute s/p paracentesis. Per primary team. Qualifiers: Ascites type: other type Qualified Code(s): R18.8 - Other ascites (2) Hyponatremia Current Visit: Yes Status: Acute stable. follow. (3) Anemia Current Visit: Yes Status: Chronic transfuse as needed. No active bleeding. Qualifiers: Anemia type: unspecified type Qualified Code(s): D64.9 - Anemia, unspecified (4) CKD (chronic kidney disease) stage 4, GFR 15-29 ml/min Current Visit: Yes Status: Chronic renal function stable. avoid nephrotoxins. Subjective Principal diagnosis: Hyponatremia Interval history: Patient seen. No new complaint. Review of systems is stable. Objective - Vital Signs Vital signs: Vital Signs Temp Pulse Resp BP Pulse Ox 02/23/17 23:02 98.2 F 80 17 111/57 100 02/23/17 16:37 16 95 02/23/17 16:19 97.6 F 77 19 137/74 96 02/23/17 10:52 97.8 F 64 18 118/62 100 02/23/17 10:45 18 96 Intake and Output 02/23/17 02/23/17 02/23/17 07:59 15:59 23:59 Intake Total 1000 / 1000 1000 / 1000 Output Total 450 / 450 Balance 550 / 550 1000 / 1000 Intake: IV Fluids 1000 / 1000 1000 / 1000 0.9 % Sodium Chloride 1, 1000 / 1000 1000 / 1000 000 ML @ 125 mls/hr IVC . Q8H KELLEE Rx#:[id number] Oral 0 / 0 Output: Urine 450 / 450 Other: Meal NPO LUNCH NPO Percent of Meal Consumed 0% - General Appearance General appearance: Present: well-developed, chronically ill, frail EENT: Present: ATNC Neck: Present: supple Respiratory: Present: clear (anteriorly) Cardiology: Present: edema, regular rate Integumentary: Present: warm and dry Musculoskeletal: Present: no cyanosis - Lab 02/22/17 03:43 02/23/17 04:47 Most recent lab results Calcium 8.2 mg/dL (8.6-10.8) L 02/23/17 04:47 - VTE Documentation of Mechanical Device: Intermittent pneumatic compression device Consult Discharge Plan - Plan Referrals: NONE,PCP [Primary Care Provider] -
[2017-02-24] MEDS: Ipratropium/Albuterol Neb 3 ML IH SCH ×2 (03:53→10:51)
[2017-02-24 04:42] LABS: Basophils % 0.3 %; Eosinophils # 0.2 K/mcL (0.0-0.6); Eosinophils % 2.5 %; Hematocrit 26.8 % (37.5-50.1); Hemoglobin 8.5 g/dL (12.9-16.9); Immature Granulocytes % 0.5 % (0-4); Lymphocytes # 0.5 K/mcL (0.6-4.6); Lymphocytes % 8.3 %; Mean Corpuscular HGB Conc 31.7 g/dL (31.6-35.5); Mean Corpuscular Hemoglobin 31.7 pg (28.0-33.3); Mean Platelet Volume 10.8 fL (9.4-12.4); Monocytes # 0.5 K/mcL (0.0-1.3); Monocytes % 8.2 %; Neutrophils # 5.1 K/mcL (1.6-8.9); Platelet Count 147 K/mcL (140-400); Red Blood Count 2.68 M/mcL (4.19-5.50); Red Cell Distribution Width 17.8 % (11.5-14.5); Segmented Neutrophils % 80.2 %
[2017-02-24 05:03] LABS: Albumin 2.5 g/dL (3.5-5.0); Albumin/Globulin Ratio 0.7 (1.1-2.2); Bilirubin,Total 1.1 mg/dL (0.2-1.2); Calcium 8.2 mg/dL (8.6-10.8); Globulin 3.8 g/dL (2.4-3.5); Magnesium 1.6 mg/dL (1.6-2.6); Potassium 4.8 mEq/L (3.5-4.5); Total Protein 6.3 g/dL (6.0-8.3)
[2017-02-24] MEDS: 0.9 % Sodium Chloride 1,000 ML IVC SCH ×3 (05:26→07:54)
[2017-02-24 06:53] VITALS: BP 124/65
[2017-02-24] MEDS: Finasteride 5 MG TABLET PO SCH (07:48)
[2017-02-24] MEDS: Lactulose Oral Soln 20 GM/30 ML UDC PO SCH (07:49)
[2017-02-24] MEDS: Isosorbide MONOnitrate (24 HR) 60 MG TAB.ER.24H PO SCH (07:49)
[2017-02-24] MEDS: amLODIPine 5 MG TABLET PO SCH (07:49)
[2017-02-24] MEDS: Aspirin 81 MG TAB.CHEW PO SCH (07:49)
[2017-02-24] MEDS: Fluticasone Propionate Nasal 50 MCG/SPRAY BOTTLE NS SCH (07:50)
[2017-02-24] MEDS ORDERED: Amoxicillin/Clavulanate 500 MG TABLET PO SCH (08:41)
--- NOTE | 2017-02-24 09:00 | Discharge Summary ---
Date of Encounter: 02/24/17 Time of Encounter: 08:58 - Discharge Diagnosis (1) Abdominal pain Priority: Primary Status: Resolved Qualifiers: Abdominal location: right lower quadrant Qualified Code(s): R10.31 - Right lower quadrant pain (2) Hyponatremia Priority: Secondary Status: Chronic (3) Cirrhosis of liver with ascites Priority: Secondary Status: Chronic Qualifiers: Hepatic cirrhosis type: unspecified hepatic cirrhosis Qualified Code(s): K74.60 - Unspecified cirrhosis of liver (4) Atrial fibrillation, permanent Priority: Secondary Status: Chronic (5) BPH w urinary obs/LUTS Priority: Secondary Status: Chronic (6) CAD (coronary artery disease) Priority: Secondary Status: Chronic Qualifiers: Coronary Disease-Associated Artery/Lesion type: bypass graft [place] vs. transplanted heart: [place] heart Associated angina: with stable angina Qualified Code(s): I25.708 - Atherosclerosis of coronary artery bypass graft(s) , unspecified, with other forms of angina pectoris (7) CKD (chronic kidney disease) stage 4, GFR 15-29 ml/min Priority: Secondary Status: Chronic (8) Pubic bone fracture Priority: Secondary Status: Acute Qualifiers: Encounter type: subsequent encounter Sublocation of pubis: unspecified portion of pubis Fracture type: closed Laterality: left Fracture healing: with routine healing Qualified Code(s): S32.502D - Unspecified fracture of left pubis, subsequent encounter for fracture with routine healing (9) AAA (abdominal aortic aneurysm) Priority: Secondary Status: Chronic Qualifiers: Presence of rupture: without rupture Qualified Code(s): I71.4 - Abdominal aortic aneurysm, without rupture (10) UTI (urinary tract infection), bacterial Priority: Secondary Status: Acute - Discharge Medications Home Medications: Atorvastatin [Lipitor] 40 mg PO HS 06/08/15 [History] Gabapentin [Neurontin] 600 mg PO HS 06/08/15 [History] Garlic 1,000 mg PO DAILY 06/08/15 [History] Metoprolol [Lopressor] 50 mg PO BID 06/08/15 [History] Multivitamin [Flintstones] 1 tab PO DAILY 06/08/15 [History] [place]-3S/Dha/Epa/Fish Oil [Fish Oil 1,200 mg Softgel] 1 cap PO DAILY 06/08/15 [ History] Montelukast [Singulair] 10 mg PO HS 11/05/15 [History] Fluticasone Propionate Nasal [Flonase] 1 spray NS DAILY 11/09/15 [History] Latanoprost 1 drop BOTH EYES HS 11/28/15 [History] Amlodipine Besylate 10 mg PO DAILY 06/12/16 [History] hydrOXYzine HCl [Hydroxyzine HCl] 25 mg PO Q8H PRN 06/12/16 [History] Ferrous Sulfate 325 mg PO BID #60 tablet 07/30/16 [Rx] Calcium Carbonate/Vitamin D3 [Calcium 600 + Vit D Tablet] 1 tab PO TID 10/12/16 [History] Ipratropium/Albuterol Neb [Duoneb] 3 ml IH Q6H PRN 10/12/16 [History] Isosorbide MONOnitrate (24 HR) [Imdur] 30 mg PO DAILY 12/03/16 [History] Lactulose 20 gm PO BID 12/03/16 [History] Tamsulosin [Flomax] 0.8 mg PO DAILY 01/27/17 [History] Amoxicillin/Clavulanate [Augmentin] 500 mg PO BIDWM 7 Days 02/24/17 [Rx] Furosemide [Lasix] 40 mg PO DAILY #60 tab 02/24/17 [Rx] Allergies/Adverse Reactions: Allergies clopidogrel [From Plavix] Allergy (Verified 12/03/16 19:46) Itching Cortisone Allergy (Verified 12/03/16 19:46) Joint Pain Procedures/tests Complete & Pending: Procedures Performed prior 72 hours Category Date Time Status IR paracentesis ultrasound [IR] Routine IR 02/23/17 Taken Date of admission: 02/23/17 07:17 Primary care physician: PCP NONE Consults: 02/23/17 09:22 Consult to Admittance Attendant [CONS] Routine Reason for SW Consult: discharge planning; from [place] for rehab 02/23/17 13:48 Consult to Interventional Radiology [CONS] Stat Consulting Provider: Radiology Interventional Cols Reason for Consult: paracentesis Call Completed: No Discharging clinician: Yousif Varghese Anticipated date of discharge: 02/24/17 - Patient Status Disposition: Transfer SNF Condition: Good Functional capacity at discharge: uses cane/walker Overall status at discharge: patient is progressing back to baseline - Discharge Instructions Instructions: Heart Failure (DC) Follow Up With: NONE,PCP [Primary Care Provider] - - Diet and Activity Activity: as per physical therapy Diet: other (cardiac) Hospital course: Mr. King is a 86 year old male patient with history of chronic hyponatremia, cirrhosis of the liver, pubic bone fracture, abdominal aortic aneurysm was admitted here with intractable abdominal pain. CT scan of the abdomen and pelvis showed presence of cholelithiasis, ascites and pubic bone fracture. Patient was receiving rehabilitation at a skilled rehabilitation facility following the recent pubic bone fracture. Patient was treated with supportive care and pain control. His sodium level was found to be 124 on admission. He was treated with gentle hydration with slow improvement in his serum sodium levels per nephrology recommendations. His Lasix was also held. Patient does have chronic kidney disease stage IV but his BUN and creatinine had significantly improved compared to his baseline. Patient underwent ultrasound- guided paracentesis and about 5 L of fluid was removed. After this his abdominal pain has significantly improved. He is feeling much better now and is stable to be discharged back to skilled rehabilitation facility. His urine culture was incidentally positive for staph aureus that is methicillin sensitive. He will be treated for this with Augmentin. He will have his basic panel checked in a couple of days and results can be followed with his mechanical technical service specialist as outpatient for further management. Per discussion with his mechanical technical service specialist, he will be restarted back on furosemide. - Time Spent with Patient Total time spent providing and/or coordinating discharge services: Greater than 30 minutes (40 min) - Constitutional Vitals: Temp Pulse Resp BP Pulse Ox 98.2 F 67 15 124/65 96 02/24/17 06:52 02/24/17 06:52 02/24/17 06:52 02/24/17 06:52 02/24/17 06:52 General appearance: Present: cooperative, A&O X 3, no acute distress, answers questions appropriately - Respiratory Respiratory exam: Present: CTAB. Absent: accessory muscle use, rales, rhonchi, wheezes - Cardiovascular Cardiovascular exam: Present: RRR, +S1, +S2. Absent: diastolic murmur, gallop, rubs, systolic murmur - GI/Abdominal GI/Abdominal exam: Present: distended, normal bowel sounds, soft, no peritoneal signs. Absent: tenderness - Extremities Exam Extremities exam: Present: pedal edema, warm, radial pulses palpable and symmetrical. Absent: calf tenderness, cyanotic - Skin Skin exam: Present: dry, intact - VTE Documentation of Mechanical Device: Intermittent pneumatic compression device
--- NOTE | 2017-02-24 09:10 | Physician Discharge Referral ---
ExtendedCare Referral Info Provider in Charge after Transfer: PCP Institutional Level of Care: Skilled - Diagnosis (1) Abdominal pain Priority: Primary Status: Resolved (2) Hyponatremia Priority: Secondary Status: Chronic (3) Cirrhosis of liver with ascites Priority: Secondary Status: Chronic (4) Atrial fibrillation, permanent Priority: Secondary Status: Chronic (5) BPH w urinary obs/LUTS Priority: Secondary Status: Chronic (6) CAD (coronary artery disease) Priority: Secondary Status: Chronic (7) CKD (chronic kidney disease) stage 4, GFR 15-29 ml/min Priority: Secondary Status: Chronic (8) Pubic bone fracture Priority: Secondary Status: Acute (9) AAA (abdominal aortic aneurysm) Priority: Secondary Status: Chronic (10) UTI (urinary tract infection), bacterial Priority: Secondary Status: Acute Prognosis: Fair Aware of Diagnosis: Patient Aware of Prognosis: Patient - Transfer Medications Home Medications: Atorvastatin [Lipitor] 40 mg PO HS 06/08/15 [History] Gabapentin [Neurontin] 600 mg PO HS 06/08/15 [History] Garlic 1,000 mg PO DAILY 06/08/15 [History] Metoprolol [Lopressor] 50 mg PO BID 06/08/15 [History] Multivitamin [Flintstones] 1 tab PO DAILY 06/08/15 [History] [place]-3S/Dha/Epa/Fish Oil [Fish Oil 1,200 mg Softgel] 1 cap PO DAILY 06/08/15 [ History] Montelukast [Singulair] 10 mg PO HS 11/05/15 [History] Fluticasone Propionate Nasal [Flonase] 1 spray NS DAILY 11/09/15 [History] Latanoprost 1 drop BOTH EYES HS 11/28/15 [History] Amlodipine Besylate 10 mg PO DAILY 06/12/16 [History] hydrOXYzine HCl [Hydroxyzine HCl] 25 mg PO Q8H PRN 06/12/16 [History] Ferrous Sulfate 325 mg PO BID #60 tablet 07/30/16 [Rx] Calcium Carbonate/Vitamin D3 [Calcium 600 + Vit D Tablet] 1 tab PO TID 10/12/16 [History] Ipratropium/Albuterol Neb [Duoneb] 3 ml IH Q6H PRN 10/12/16 [History] Isosorbide MONOnitrate (24 HR) [Imdur] 30 mg PO DAILY 12/03/16 [History] Lactulose 20 gm PO BID 12/03/16 [History] Tamsulosin [Flomax] 0.8 mg PO DAILY 01/27/17 [History] Amoxicillin/Clavulanate [Augmentin] 500 mg PO BIDWM 7 Days 02/24/17 [Rx] Furosemide [Lasix] 40 mg PO DAILY #60 tab 02/24/17 [Rx] Allergies/Adverse Reactions: Allergies clopidogrel [From Plavix] Allergy (Verified 12/03/16 19:46) Itching Cortisone Allergy (Verified 12/03/16 19:46) Joint Pain - Respiratory Orders Smoking Cessation: Smoking cessation has been advised. For more information, call the [employer] Tobacco Quit Line at 3-507-UJJS-NOW. - Lab Orders Lab Orders: Other (include drug levels w/frequency) (Please check BMP on and send results to [facility] Dr. Douglas/ Dr. Owen) - Ancillary Orders May use pressure relief devices daily prn, May consult with Dentist, Kiln Setter, Magnetic Resonance Imaging Director PRN - Advance Directives Code Status: Full Code - Mobility Orders Ambulate (per PT) - Rehabiliation Orders Rehab Potential: Fair Rehab Orders: Evaluation for Physical Therapy, Evaluation for Occupational Therapy - Diet Orders Cardiac CERTIFICATION: I certify that the transfer of the above named patient to an Extended Care Facility is necessary for the continuing treatment of the diagnosis listed. The above information is true and accurate reflection of patient's current condition. Confidential - Redisclosure prohibited without a patient's written consent.
--- NOTE | 2017-02-24 11:44 | Nephrology Progress Note ---
Date of Encounter: 02/24/17 Time of Encounter: 11:41 - Assessment and Plan (1) Hyponatremia Current Visit: Yes Status: Chronic Improving-Na+ 128 Need BMP on 02/26 with results to marketing automation manager Dr Owen and PCP To f/u with Dr Owen on 03/20 as scheduled. (2) CKD (chronic kidney disease) stage 4, GFR 15-29 ml/min Current Visit: Yes Status: Chronic Has appointment with Dr Owen on 03/20 (3) Anemia Current Visit: Yes Status: Chronic Stable at 8.5 Qualifiers: Anemia type: unspecified type Qualified Code(s): D64.9 - Anemia, unspecified Subjective Principal diagnosis: Hyponatremia Interval history: Patient seen and examined. Getting ready to be discharged to rehab Objective - Vital Signs Vital signs: Vital Signs Temp Pulse Resp BP Pulse Ox 02/24/17 10:52 15 96 02/24/17 06:52 98.2 F 67 15 124/65 96 02/24/17 03:53 16 97 02/24/17 03:47 98.2 F 77 16 114/69 96 02/23/17 23:02 98.2 F 80 17 111/57 100 02/23/17 16:37 16 95 02/23/17 16:19 97.6 F 77 19 137/74 96 Intake and Output 02/23/17 02/24/17 02/24/17 23:59 07:59 15:59 Intake Total 1000 / 1000 1463 / 1463 246 / 246 Output Total 650 / 650 250 / 250 Balance 1000 / 1000 813 / 813 -4 / -4 Intake: IV Fluids 1000 / 1000 1463 / 1463 126 / 126 0.9 % Sodium Chloride 1, 1000 / 1000 1463 / 1463 126 / 126 000 ML @ 125 mls/hr IVC . Q8H KELLEE Rx#:[id number] Oral 0 / 0 0 / 0 120 / 120 Output: Urine 650 / 650 250 / 250 Other: Meal NPO Breakfast Percent of Meal Consumed 0% 100% # Voids 1 Weight 82.6 kg 79.923 kg Patient Weight 02/24/17 23:59 Weight 79.923 kg - General Appearance General appearance: Present: well-developed, well-nourished EENT: Present: ATNC, mucous membranes moist, hearing intact, vision intact Neck: Present: supple Respiratory: Present: clear Cardiology: Present: no edema, normal S1, normal S2 Gastrointestinal: Present: no tenderness, no guarding Integumentary: Present: warm and dry Psychiatric: Present: mood/affect appropriate, cooperative - Lab 02/24/17 03:04 02/24/17 03:04 Most recent lab results Calcium 8.2 mg/dL (8.6-10.8) L 02/24/17 03:04 Magnesium 1.6 mg/dL (1.6-2.6) 02/24/17 03:04 - VTE Documentation of Mechanical Device: Intermittent pneumatic compression device Consult Discharge Plan - Plan Instructions: Heart Failure (DC) Referrals: NONE,PCP [Primary Care Provider] -
== END 2017-02-24 13:00 | DRG 948 ==
LOC: EMEROO 15:29 → 3ANU 15:29 → UNDODISOB 02-22 18:55 → SUATTDRO 02-23 07:17
PROVIDERS: ADMIT Family Medicine; ATTEND Internal Medicine

== ENCOUNTER 2017-04-08 14:35 | Observation (INO) ==
[2017-04-08 15:42] LABS: Basophils % 0.1 %; Eosinophils # 0.1 K/mcL (0.0-0.6); Eosinophils % 1.5 %; Immature Granulocytes % 0.4 % (0-4); Lymphocytes # 0.5 K/mcL (0.6-4.6); Lymphocytes % 6.8 %; Mean Corpuscular HGB Conc 33.3 g/dL (31.6-35.5); Mean Corpuscular Hemoglobin 32.5 pg (28.0-33.3); Mean Corpuscular Volume 97.4 fL (83.0-100.0); Mean Platelet Volume 10.4 fL (9.4-12.4); Monocytes # 0.6 K/mcL (0.0-1.3); Monocytes % 8.7 %; Neutrophils # 5.7 K/mcL (1.6-8.9); Platelet Count 122 K/mcL (140-400); Red Blood Count 3.08 M/mcL (4.19-5.50); Red Cell Distribution Width 14.7 % (11.5-14.5); Segmented Neutrophils % 82.5 %
[2017-04-08 15:45] LABS: INR 1.3
[2017-04-08 15:55] LABS: Albumin 2.9 g/dL (3.5-5.0); Albumin/Globulin Ratio 0.7 (1.1-2.2); Bilirubin,Direct 0.5 mg/dL (0.0-0.5); Bilirubin,Indirect 0.3 mg/dL (0.0-1.2); Bilirubin,Total 0.8 mg/dL (0.2-1.2); Calcium 8.5 mg/dL (8.6-10.8); Globulin 4.4 g/dL (2.4-3.5); Potassium 3.9 mEq/L (3.5-4.5); Total Protein 7.3 g/dL (6.0-8.3)
--- NOTE | 2017-04-08 16:43 | Emergency Department Note ---
Disposition Clinical Impression: Ascites, Abdominal distention, Hyponatremia, Cirrhosis Disposition: Admitted As Inpatient Condition: Fair Referrals: Roberta Berrios MD [Primary Care Provider] - Forms: ED Satisfaction Letter, Work/School Release Time of Disposition: 17:25 General Adult HPI - General Chief complaint: ED Abdominal Pain Stated complaint: ABD Swollen Time Seen by Provider: 04/08/17 14:59 Source: patient Limitations: no limitations Nursing Notes Reviewed: Yes Vital Signs Reviewed: Yes - History of Present Illness HPI Narrative: 86-year-old male presents emergency room for abdominal distention. Patient was recently admitted for the same complaint. He was noted to have cirrhosis and ascites. He has been severely hyponatremic from all the cirrhotic changes with fluid levels. His sodiums have been running in the low 120s to high 120s. Currently, he denies any abdominal pain. States his abdomen just feels more distended. They did remove 5 L of ascites fluid via paracentesis last month. He was also found to have a AAA. Again, he is denying any abdominal pain or any new back pain. Denies chest pain or shortness of breath. No fevers. He states his bowels are moving fine. Occasionally has problems with urination secondary to his chronic BPH. Pain Scale: 5 - Related Data Home Medications Medication Instructions Recorded Confirmed Atorvastatin [Lipitor] 40 mg PO HS 06/08/15 02/20/17 Gabapentin [Neurontin] 600 mg PO HS 06/08/15 02/20/17 Garlic 1,000 mg PO DAILY 06/08/15 02/20/17 Metoprolol [Lopressor] 50 mg PO BID 06/08/15 02/20/17 Multivitamin [Flintstones] 1 tab PO DAILY 06/08/15 02/20/17 [place]-3S/Dha/Epa/Fish Oil [Fish 1 cap PO DAILY 06/08/15 02/20/17 Oil 1,200 mg Softgel] Montelukast [Singulair] 10 mg PO HS 11/05/15 02/20/17 Fluticasone Propionate Nasal 1 spray NS DAILY 11/09/15 02/20/17 [Flonase] Latanoprost 1 drop BOTH EYES HS 11/28/15 02/20/17 Amlodipine Besylate 10 mg PO DAILY 06/12/16 02/20/17 hydrOXYzine HCl [Hydroxyzine HCl] 25 mg PO Q8H PRN 06/12/16 02/20/17 Calcium Carbonate/Vitamin D3 1 tab PO TID 10/12/16 02/20/17 [Calcium 600 + Vit D Tablet] Ipratropium/Albuterol Neb [Duoneb] 3 ml IH Q6H PRN 10/12/16 02/20/17 Isosorbide MONOnitrate (24 HR) 30 mg PO DAILY 12/03/16 02/20/17 [Imdur] Lactulose 20 gm PO BID 12/03/16 02/20/17 Tamsulosin [Flomax] 0.8 mg PO DAILY 01/27/17 02/20/17 Previous Rx's Medication Instructions Recorded Ferrous Sulfate 325 mg PO BID #60 tablet 07/30/16 Amoxicillin/Clavulanate [Augmentin] 500 mg PO BIDWM 7 Days tab 02/24/17 Furosemide [Lasix] 40 mg PO DAILY #60 tab 02/24/17 Allergies Allergy/AdvReac Type Severity Reaction Status Date / Time clopidogrel [From Plavix] Allergy Itching Verified 12/03/16 19:46 Cortisone Allergy Joint Pain Verified 12/03/16 19:46 Constitutional: Denies: fever, chills Eyes: Reports: as per HPI ENT ED: Reports: as per HPI Cardiovascular: Denies: chest pain, palpitations, dyspnea on exertion Respiratory: Denies: cough, dyspnea Gastrointestinal: Reports: other (Abdomen distention). Denies: abdominal pain, nausea Genitourinary: Reports: as per HPI Musculoskeletal: Reports: as per HPI Integumentary: Reports: as per HPI Neurological: Reports: as per HPI Endocrine: Reports: as per HPI Hematological/Lymphatic: Reports: as per HPI Allergic/Immunologic: Reports: as per HPI Past Medical History - Past Medical History Medical history: Reports: atrial fibrillation, cirrhosis, CHF, coronary artery disease, hyperlipidemia, hypertension, myocardial infarction, peripheral artery disease, renal disease, valvular heart disease, other Surgical history: Reports: angioplasty/stent, carotid endarterectomy, coronary bypass (CABG), pacemaker/AICD, vascular surgery, other, pacemaker Psychiatric history: Reports: no psych history - Social History Smoking Status: Never smoker Smokeless Tobacco Status: No Alcohol use: Reports: none Drug use: Reports: none Physical Exam - General Limitations: no limitations General appearance: alert, in no apparent distress - Head Head exam: atraumatic, normocephalic - Eye Eye exam: Present: normal appearance - Neck Neck exam: Present: normal inspection - Chest Chest inspection: Present: normal inspection - Respiratory Respiratory exam: Present: normal lung sounds bilaterally - Cardiovascular Cardiovascular exam: Present: regular rate, normal rhythm - Abdominal Exam Abdominal exam: Present: soft, distention (Patient has distention of the entire abdomen. Hepatosplenomegaly present. Positive fluid wave. Bowel sounds normal. No significant tenderness on palpation.). Absent: tenderness - Extremities Exam Extremities exam: Present: pedal edema - Expanded Lower Extremity Exam Hip/Pelvis exam: Present: normal inspection - Back Exam Back exam: Present: normal inspection - Neurological Exam Neurological exam: Present: alert, oriented X3 - Psychiatric Psychiatric exam: Present: normal affect, normal mood - Skin Skin exam: Present: warm, dry, intact Course Vital Signs Temperature 97.6 F 04/08/17 14:38 Pulse Rate 66 04/08/17 14:38 Respiratory Rate 18 04/08/17 14:38 Blood Pressure 135/73 04/08/17 14:38 O2 Sat by Pulse Oximetry 99 04/08/17 14:38 Temperature 97.6 F 04/08/17 14:38 Pulse Rate 67 04/08/17 16:52 Respiratory Rate 16 04/08/17 16:52 Blood Pressure 139/78 04/08/17 16:52 O2 Sat by Pulse Oximetry 97 04/08/17 16:52 Oxygen Delivery Oxygen Delivery Room Air Medical Decision Making - [facility] Narrative Medical decision making narrative: CT abdomen and pelvis shows worsening ascites than previous. His sodiums down to 122 again. I did not do a paracentesis in the ER as he was not having any difficulty breathing and no shortness of breath. I was also concerned about the fluid shows with his low sodium of 122. I will place a Guerrero catheter as he appears to have greater then 300 mL of urine in his bladder. I spoke with the hospitalist group. We will admit the patient for further workup of this cirrhosis and possible paracentesis. - Medical Records Medical records reviewed: Yes I reviewed the patient's medical records. - Lab Data Lab results reviewed: Yes I reviewed the patient's lab results. Result diagrams: 04/08/17 15:26 04/08/17 15:26 Lab Results 04/08/17 04/08/17 04/08/17 Range/Units 15:26 15:26 15:26 WBC 6.9 (4.3-11.1) K/mcL RBC 3.08 L (4.19-5.50) M/mcL Hgb 10.0 L (12.9-16.9) g/dL Hct 30.0 L (37.5-50.1) % MCV 97.4 (83.0-100.0) fL MCH 32.5 (28.0-33.3) pg MCHC 33.3 (31.6-35.5) g/dL RDW 14.7 H (11.5-14.5) % Plt Count 122 L (140-400) K/mcL MPV 10.4 (9.4-12.4) fL Immature Gran % 0.4 (0-4) % Seg Neutrophils % 82.5 % Lymphocytes % 6.8 % Monocytes % 8.7 % Eosinophils % 1.5 % Basophils % 0.1 % Neutrophils # 5.7 (1.6-8.9) K/mcL Lymphocytes # 0.5 L (0.6-4.6) K/mcL Monocytes # 0.6 (0.0-1.3) K/mcL Eosinophils # 0.1 (0.0-0.6) K/mcL Basophils # 0.0 (0.0-0.2) K/mcL PT 14.0 H (9.4-12.1) Seconds INR 1.3 APTT 35.0 (26.0-36.0) Seconds Sodium 122 L (136-145) mEq/L Potassium 3.9 (3.5-4.5) mEq/L Chloride 85 L (98-109) mEq/L Carbon Dioxide 28 (19-29) mEq/L BUN 49 H (8-26) mg/dL Creatinine 2.20 H (0.72-1.25) mg/dL Est GFR ( Amer) 35 L (> 60) Est GFR (Non-Af Amer) 29 L (> 60) BUN/Creatinine Ratio 22 (6-26) Glucose 111 H (70-99) mg/dL Calculated Osmolality 268 L (280-300) Calcium 8.5 L (8.6-10.8) mg/dL Total Bilirubin 0.8 (0.2-1.2) mg/dL Direct Bilirubin 0.5 (0.0-0.5) mg/dL Indirect Bilirubin 0.3 (0.0-1.2) mg/dL AST 32 (5-34) Units/L ALT 12 (0-55) Units/L Alkaline Phosphatase 161 H (38-126) Units/L Serum Total Protein 7.3 (6.0-8.3) g/dL Albumin 2.9 L (3.5-5.0) g/dL Globulin 4.4 H (2.4-3.5) g/dL Albumin/Globulin Ratio 0.7 L (1.1-2.2) Lipase 43 (8-78) Units/L - Radiology Data Radiology results reviewed: Yes I reviewed the patient's radiology results.
[2017-04-08 17:47] LABS: Bilirubin,Urine Negative (Negative); Blood,Urine Negative (Negative); Clarity,Urine Clear (Clear); Color,Urine Yellow (Yellow); Glucose,Urine (UA) Normal (Normal); Ketones,Urine Negative (Negative); Leukocyte Esterase,Urine Negative (Negative); Nitrite,Urine Negative (Negative); PH,Urine 7.5 pH Units (5.0-8.0); Protein,Urine Negative (Neg-Trace); Specific Gravity,Urine 1.012 (1.010-1.025); Urobilinogen,Urine Normal (Normal)
[2017-04-08] MEDS ORDERED: *HR* HYDROmorphone (PF) 1 MG/ML SYRINGE IVP PRN (20:20)
[2017-04-08] MEDS ORDERED: Naloxone 0.4 MG/ML INJ IVP PRN (20:20)
[2017-04-08] MEDS ORDERED: *HR* HYDROcodone/Acet 5/325 mg TABLET PO PRN (20:20)
[2017-04-08] MEDS ORDERED: Acetaminophen 325 MG TABLET PO PRN (20:20)
--- NOTE | 2017-04-08 20:25 | Internal Med History&Physical ---
Date of Encounter: 04/09/17 Time of Encounter: 21:30 Assessment and Plan (1) Ascites Current visit: Yes Status: Acute Acute on chronic. Due to liver cirrhosis. low Suspicion for spontaneous bacterial peritonitis. Continue home doses of diuretics Consult interventional radiology for paracentesis Nothing by mouth after midnight. Qualifiers: Ascites type: other type Qualified Code(s): R18.8 - Other ascites (2) Cryptogenic cirrhosis of liver Current visit: Yes Status: Chronic Patient is alert awake and oriented. No evidence of GI bleed. No neurologic symptoms. (3) CKD (chronic kidney disease) stage 4, GFR 15-29 ml/min Current visit: Yes Status: Chronic Chemistry Is at baseline. Continue to monitor. (4) Anemia Current visit: Yes Status: Chronic Possibly anemia of chronic disease. Hemoglobin is at baseline. Qualifiers: Anemia type: unspecified type Qualified Code(s): D64.9 - Anemia, unspecified (5) Congestive heart failure (CHF) Current visit: Yes Status: Chronic Chronic systolic heart failure. Continue home dose of diuretics. Qualifiers: Congestive heart failure type: systolic Congestive heart failure chronicity : chronic Qualified Code(s): I50.22 - Chronic systolic (congestive) heart failure (6) Chronic hyponatremia Current visit: Yes Status: Chronic Chronic stable. Possibly secondary to liver disease. (7) BPH w urinary obs/LUTS Current visit: Yes Status: Chronic Continue home medications. (8) CAD (coronary artery disease) Current visit: Yes Status: Chronic Chronic stable Qualifiers: Coronary Disease-Associated Artery/Lesion type: andreafski artery [place] vs. transplanted heart: andreafski heart Associated angina: without angina Qualified Code(s): I25.10 - Atherosclerotic heart disease of andreafski coronary artery without angina pectoris (9) Atrial fibrillation, permanent Current visit: Yes Status: Chronic Rate is controlled. Not on anticoagulation. Continue current medications. (10) DVT prophylaxis Current visit: Yes Status: Chronic Heparin subcutaneous. (11) HTN (hypertension) Current visit: Yes Status: Chronic Controlled, continue home medications. Qualifiers: Hypertension type: essential hypertension Qualified Code(s): I10 - Essential (primary) hypertension Internal Medicine - H&P: HPI Chief complaint: Abdominal distention Admitted From: Home Plans for Post Hospital Care: Home History of present illness: Mr. King is a 86 year old male The patient has a past medical history of CHF reduced ejection fraction of 35%, severe mitral regurgitation, Afib, liver cirrhosis, CK 80 stage III or for, peripheral artery disease, chronic hyponatremia, chronic thrombocytopenia. He presented to the ER with complaints of abdominal distention that has been going on for the past 1 month. He denies abdominal pain, he denies fever, he denies change in bowel movement. However, reports early satiety and general abdominal discomfort. He denies chest pain, he denies difficulty breathing, he reports however that he is mostly debilitated and limited on exertion. He denies any other complaints. He denies any changes in mental status. He is not confused. 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 Past Med Surg Social Fam HX - Past Medical History Medical history: atrial fibrillation, cirrhosis, CHF, coronary artery disease, hyperlipidemia, hypertension, myocardial infarction, peripheral artery disease, renal disease, valvular heart disease, other Psychiatric history: no psych history - Past Surgical History Surgical History: angioplasty/stent, carotid endarterectomy, coronary bypass ( CABG), pacemaker/AICD, vascular surgery, other, pacemaker - Social History Smoking Status: Never smoker Smokeless Tobacco Status: No Alcohol use: none Drug use: none - Family History Father Living Status: Hx Family Cardiac Disorders: Yes Hx Family Endocrine Disorder: Yes Internal Medicine - H&P: Meds Atorvastatin [Lipitor] 40 mg PO HS 06/08/15 [History] Gabapentin [Neurontin] 600 mg PO HS 06/08/15 [History] Garlic 1,000 mg PO DAILY 06/08/15 [History] Metoprolol [Lopressor] 50 mg PO BID 06/08/15 [History] Multivitamin [Flintstones] 1 tab PO DAILY 06/08/15 [History] [place]-3S/Dha/Epa/Fish Oil [Fish Oil 1,200 mg Softgel] 1 cap PO DAILY 06/08/15 [ History] Montelukast [Singulair] 10 mg PO HS 11/05/15 [History] Latanoprost 1 drop BOTH EYES HS 11/28/15 [History] Lactulose 30 gm PO QAM 12/03/16 [History] Tamsulosin [Flomax] 0.4 mg PO BID 01/27/17 [History] Ferrous Sulfate 325 mg PO DAILY 04/08/17 [History] Furosemide [Lasix] 40 mg PO BID 04/08/17 [History] Loratadine [Claritin] 10 mg PO DAILY 04/08/17 [History] Spironolactone [Aldactone] 50 mg PO DAILY 04/08/17 [History] 3 Allergy/AdvReac Type Severity Reaction Status Date / Time clopidogrel [From Plavix] Allergy Itching Verified 12/03/16 19:46 Cortisone Allergy Joint Pain Verified 12/03/16 19:46 All Systems PM: A 10-system review of systems was performed and is negative for pertinent findings except as documented above in the HPI. - Constitutional Constitutional: no chills, no fever(s), no night sweats - EENT Eyes: no change in vision, no discharge, no pain, no photophobia Ears: no ear discharge, no ear pain, no tinnitus Nose, mouth and throat: no dysphagia, no nasal discharge, no neck pain, no sore throat - Cardiovascular Cardiovascular ROS IM: dyspnea on exertion, edema, no chest pain, no orthopnea, no palpitations, no syncope - Respiratory Respiratory: no cough, no chest congestion - Gastrointestinal Gastrointestinal: as per HPI - Musculoskeletal Musculoskeletal ROS IM: no numbness, no tingling - Integumentary Integumentary IM: no rash, no unusual bruising - Neurological Neurological ROS: no confusion, no convulsions, no focal weakness, no numbness, no tingling, no tremor(s) - Hematologic/Lymphatic Hematologic/Lymphatic: no easy bruising - Constitutional Vitals: Temp Pulse Resp BP Pulse Ox 97.7 F 65 18 128/71 94 04/08/17 20:03 04/08/17 20:03 04/08/17 20:03 04/08/17 20:03 04/08/17 20:03 VSS Gen: NAD HEENT: Moist oral mucosa, no cyanosis Neuro: Awake, alert, oriented X3, no speech deficits, no facial paralysis, no gross neurologic deficits Chest: No chest wall tenderness, chest is CTAB Heart: S1, S2 only, loud systolic murmur-MR. Abdomen: Soft, not tender, distended abdominal wall veins, ascites ++, palpable fluid thrill Extremities: Well perfused, 2+ pitting pedal edema Skin: No rash Internal Med - H&P Results - Labs CBC & Chem 7: 04/08/17 15:26 04/08/17 15:26
[2017-04-08] MEDS ORDERED: Gabapentin 300 MG CAPSULE PO SCH (21:00)
[2017-04-08] MEDS ORDERED: Latanoprost 2.5 ML BOTTLE BOTH EYES SCH (21:00)
[2017-04-08] MEDS: Furosemide 20 MG TABLET PO SCH (22:22)
[2017-04-09 05:08] LABS: Basophils % 0.1 %; Eosinophils # 0.1 K/mcL (0.0-0.6); Eosinophils % 1.9 %; Hematocrit 27.9 % (37.5-50.1); Hemoglobin 9.6 g/dL (12.9-16.9); Immature Granulocytes % 0.3 % (0-4); Lymphocytes # 0.8 K/mcL (0.6-4.6); Lymphocytes % 10.8 %; Mean Corpuscular HGB Conc 34.4 g/dL (31.6-35.5); Mean Corpuscular Hemoglobin 32.8 pg (28.0-33.3); Mean Corpuscular Volume 95.2 fL (83.0-100.0); Mean Platelet Volume 10.5 fL (9.4-12.4); Monocytes # 0.6 K/mcL (0.0-1.3); Monocytes % 8.8 %; Neutrophils # 5.5 K/mcL (1.6-8.9); Platelet Count 113 K/mcL (140-400); Red Blood Count 2.93 M/mcL (4.19-5.50); Red Cell Distribution Width 14.5 % (11.5-14.5); Segmented Neutrophils % 78.1 %
[2017-04-09 05:18] LABS: Calcium 8.8 mg/dL (8.6-10.8); Potassium 4.2 mEq/L (3.5-4.5)
[2017-04-09] MEDS ORDERED: *HR* Heparin 5,000 UNIT/ML VIAL SQ SCH (06:00)
--- NOTE | 2017-04-09 08:47 | History & Physical Report ---
Date of Encounter: 04/09/17 Time of Encounter: 08:47 24 Hour HP Update - Instructions Instructions: If the History and Physical is less than 30 days old and was completed prior to A.M. admission and or procedure and has NOT been updated on calendar day of procedure please complete this update prior to performing procedure. - Update Patient reports changes in Medical Condition: No Changes in examination, assessment, or condition: No Changes in Medication: No Preop tests/diagnostics Reviewed: Yes Surgery Remains Indicated: Yes Consent for Planned Operative Procedure(s) Verified: Yes
[2017-04-09] MEDS: Furosemide 20 MG TABLET PO SCH (08:59)
[2017-04-09] MEDS ORDERED: (Omega-3s/Dha/Epa/Fish Oil [Fish Oil 1,200 Mg Softgel]) PO SCH (09:00)
[2017-04-09] MEDS ORDERED: Lactulose Oral Soln 20 GM/30 ML UDC PO SCH (09:00)
[2017-04-09] MEDS ORDERED: Multivit/Ca/Min/Fe/FA 1 TAB TABLET PO SCH (09:00)
[2017-04-09] MEDS ORDERED: Loratadine 10 MG TABLET PO SCH (09:00)
--- NOTE | 2017-04-09 13:34 | Event Note ---
Date of Encounter: 04/09/17 Time of Encounter: 13:31 Pt seen with hospitalist Dr. Monge. ENT was initially consulted for lesion in left side of cheek on the inside of his mouth. Dr. Monge did puncture the lesion which drained blood, but has since healed and no longer actively bleeding or draining. Patient's vital signs are WNL and his Hb is stable and he is eager to go home. Dr. Monge decided to cancel the inpatient ENT consult and have patient closely follow up as outpatient in the ENT office. He does have passport services which will facilitate transportation to his appointment.
--- NOTE | 2017-04-09 15:05 | Discharge Summary ---
Date of Encounter: 04/09/17 Time of Encounter: 11:00 - Discharge Diagnosis (1) Lesion of oral mucosa Priority: Primary Status: Acute (2) CKD (chronic kidney disease) stage 4, GFR 15-29 ml/min Priority: Secondary Status: Chronic (3) Congestive heart failure (CHF) Priority: Secondary Status: Chronic Qualifiers: Congestive heart failure type: systolic Congestive heart failure chronicity : chronic Qualified Code(s): I50.22 - Chronic systolic (congestive) heart failure (4) Chronic hyponatremia Priority: Secondary Status: Chronic (5) Ascites Priority: Primary Status: Acute Qualifiers: Ascites type: other type Qualified Code(s): R18.8 - Other ascites (6) Abdominal distention Priority: Primary Status: Acute (7) DVT prophylaxis Priority: Secondary Status: Acute - Discharge Medications Home Medications: Atorvastatin [Lipitor] 40 mg PO HS 06/08/15 [History] Gabapentin [Neurontin] 600 mg PO HS 06/08/15 [History] Garlic 1,000 mg PO DAILY 06/08/15 [History] Metoprolol [Lopressor] 50 mg PO BID 06/08/15 [History] Multivitamin [Flintstones] 1 tab PO DAILY 06/08/15 [History] [place]-3S/Dha/Epa/Fish Oil [Fish Oil 1,200 mg Softgel] 1 cap PO DAILY 06/08/15 [ History] Montelukast [Singulair] 10 mg PO HS 11/05/15 [History] Latanoprost 1 drop BOTH EYES HS 11/28/15 [History] Lactulose 30 gm PO QAM 12/03/16 [History] Tamsulosin [Flomax] 0.4 mg PO BID 01/27/17 [History] Ferrous Sulfate 325 mg PO DAILY 04/08/17 [History] Furosemide [Lasix] 40 mg PO BID 04/08/17 [History] Loratadine [Claritin] 10 mg PO DAILY 04/08/17 [History] Spironolactone [Aldactone] 50 mg PO DAILY 04/08/17 [History] Allergies/Adverse Reactions: 3 Allergy/AdvReac Type Severity Reaction Status Date / Time clopidogrel [From Plavix] Allergy Itching Verified 12/03/16 19:46 Cortisone Allergy Joint Pain Verified 12/03/16 19:46 Procedures/tests Complete & Pending: Procedures Performed prior 72 hours Category Date Time Status IR paracentesis ultrasound [IR] Routine IR 04/09/17 Completed Date of admission: 04/08/17 17:46 Primary care physician: Roberta Berrios, Consults: 04/08/17 20:23 Consult to Interventional Radiology [CONS] Routine Consulting Provider: Radiology Interventional Cols Reason for Consult: Paracentensis Call Completed: No 04/09/17 12:17 Consult to ENT [CONS] Routine Consulting Provider: ENT Cher Reason for Consult: Left cheek/mouth lesion Call Completed: Yes Discharging clinician: Ashanti Monge Anticipated date of discharge: 04/09/17 - Patient Status Disposition: Home Health Service Condition: Fair Overall status at discharge: patient is back to baseline - Discharge Instructions Follow Up With: Roberta Berrios MD [Primary Care Provider] - - Diet and Activity Activity: as per physical therapy, increase activity as tolerated Diet: advance to your usual diet, low salt diet Interval History: HPI: Mr. King is a 86 year old male The patient has a past medical history of CHF reduced ejection fraction of 35%, severe mitral regurgitation, Afib, liver cirrhosis, CKD stage III or IV, peripheral artery disease, chronic hyponatremia, chronic thrombocytopenia. He presented to the ER with complaints of abdominal distention that has been going on for the past 1 month. He denies abdominal pain, he denies fever, he denies change in bowel movement. However, reports early satiety and general abdominal discomfort. He denies chest pain, he denies difficulty breathing, he reports however that he is mostly debilitated and limited on exertion. He denies any other complaints. He denies any changes in mental status. He is not confused. Hospital course: Mr. King is a 86 year old male admitted for abdominal distention. Patient has a history of cirrhosis with ascites. He needs periodically paracentesis. Patient was seen by interventional radiology. US guided paracentesis has been done. 7 L of ascites has been removed by IR. Patient's vitals are stable during and after paracentesis. Patient was found most lesion with submucosa hematoma. Bedside aspiration has been done and about 2-3 mL blood was aspirated. ENT consult was called and the ENT resident came to see patient, no active bleeding at this point, we decided to make appointment for patient to see ENT at outpatient. I saw and examined the patient. He is awake or alert, oriented 3. Abdominal distention has improved significantly after paracentesis. Vitals are stable. Patient will discharge home and resume previous care. He will follow-up with PCP as outpatient - Time Spent with Patient Total time spent providing and/or coordinating discharge services: 40 minutes Greater than 30 minutes - Constitutional Vitals: Temp Pulse Resp BP Pulse Ox 97.6 F 68 16 120/58 99 04/09/17 06:31 04/09/17 13:54 04/09/17 13:54 04/09/17 13:54 04/09/17 13:54 General appearance: Present: A&O X 3, no acute distress, answers questions appropriately - Head Head exam: Present: atraumatic, normocephalic - Eye Eye exam: Present: PERRL, conjuntiva pink, sclera anicteric Pupils: Present: PERRL - Neck Neck exam general surgery: Present: supple, trachea midline. Absent: lymphadenopathy - Respiratory Respiratory exam: Present: CTAB. Absent: accessory muscle use, rales, rhonchi, wheezes - Cardiovascular Cardiovascular exam: Present: RRR, +S1, +S2. Absent: diastolic murmur, gallop, rubs, systolic murmur - GI/Abdominal GI/Abdominal exam: Present: normal bowel sounds, soft, no peritoneal signs. Absent: distended, tenderness - Extremities Exam Extremities exam: Present: warm, radial pulses palpable and symmetrical. Absent : calf tenderness, cyanotic, pedal edema - Neurological Exam Neurological exam: Present: CN II-XII intact, oriented X3, no focal deficits. Absent: pronater drift, facial droop, speech deficit - Skin Skin exam: Present: dry, intact
--- NOTE | 2017-04-09 15:18 | Physician Discharge Referral ---
Home Health/Hosp Referral Info Transfer to: Home Health Provider in Charge Post Discharge: PCP - Diagnosis (1) Lesion of oral mucosa Priority: Primary Status: Acute (2) CKD (chronic kidney disease) stage 4, GFR 15-29 ml/min Priority: Secondary Status: Chronic (3) Congestive heart failure (CHF) Priority: Secondary Status: Chronic (4) Chronic hyponatremia Priority: Secondary Status: Chronic (5) Ascites Priority: Primary Status: Acute (6) Abdominal distention Priority: Primary Status: Acute (7) DVT prophylaxis Priority: Secondary Status: Acute - Respiratory Orders Smoking Cessation: Smoking cessation has been advised. For more information, call the [place] Tobacco Quit Line at 1-773-DAJZ-NOW. - Diet/Nutrition Diet/Nutrition Orders: Cardiac - Services Needed Following services are medically necessary services: Nursing, Home Health Aide, Physical Therapy, Occupational Therapy - Transfer Medications Home Medications: Atorvastatin [Lipitor] 40 mg PO HS 06/08/15 [History] Gabapentin [Neurontin] 600 mg PO HS 06/08/15 [History] Garlic 1,000 mg PO DAILY 06/08/15 [History] Metoprolol [Lopressor] 50 mg PO BID 06/08/15 [History] Multivitamin [Flintstones] 1 tab PO DAILY 06/08/15 [History] [place]-3S/Dha/Epa/Fish Oil [Fish Oil 1,200 mg Softgel] 1 cap PO DAILY 06/08/15 [ History] Montelukast [Singulair] 10 mg PO HS 11/05/15 [History] Latanoprost 1 drop BOTH EYES HS 11/28/15 [History] Lactulose 30 gm PO QA 12/03/16 [History] Tamsulosin [Flomax] 0.4 mg PO BID 01/27/17 [History] Ferrous Sulfate 325 mg PO DAILY 04/08/17 [History] Furosemide [Lasix] 40 mg PO BID 04/08/17 [History] Loratadine [Claritin] 10 mg PO DAILY 04/08/17 [History] Spironolactone [Aldactone] 50 mg PO DAILY 04/08/17 [History] Allergies/Adverse Reactions: 3 Allergy/AdvReac Type Severity Reaction Status Date / Time clopidogrel [From Plavix] Allergy Itching Verified 12/03/16 19:46 Cortisone Allergy Joint Pain Verified 05/17/17 19:46 Certification: Further, I certify that my clinical findings support that this patient is homebound (i.e. absences from home require considerable and taxing effort and are for medical reasons or zoroastrian services or infrequently or short duration when for other reasons) because: Homebound Reason: Patient requires assistance of a person or device to safely leave home Attestation: My signature below is to certify that this patient is under my care and that I, or nurse practitioner, or a physician's elder assistant working with me, has a face-to -face encounter with this patient.
[2017-04-09 15:22] VITALS: BP 118/66
== END 2017-04-09 16:45 | disposition home health service (06) ==
LOC: EMEROO 14:35 → 3ANU 14:35 → SUATTDRO 17:46 → 2NENU 18:39
PROVIDERS: ADMIT Family Medicine; ATTEND Internal Medicine

== ENCOUNTER 2017-06-20 08:57 | Inpatient (IN) ==
--- NOTE | 2017-06-20 09:50 | Emergency Department Note ---
Disposition Clinical Impression: Elevated troponin, Hyponatremia Fall Qualifiers: Qualified Code(s): W19.XXXA - Chronic kidney disease Qualifiers: Chronic kidney disease stage: stage 4 (severe) Qualified Code(s): N18.4 - Chronic kidney disease, stage 4 (severe) Disposition: Admitted As Inpatient Condition: Fair Time of Disposition: 13:19 General Adult HPI - General Chief complaint: ED Skin/Abscess/Foreign Body Stated complaint: skin tear Time Seen by Provider: 06/20/17 08:58 Source: patient, EMS Limitations: no limitations Nursing Notes Reviewed: Yes Vital Signs Reviewed: Yes - History of Present Illness HPI Narrative: Mr. conn, 86-year-old male, presents from home for evaluation of a superficial skin tear on his right lateral forearm. Patient had a reported mechanical fall in his home today where his arm scraped the corner of his television causing a skin tear. Patient describes the fall as his house slipper slipped off his foot and tripping him up. He did not hit his head and no loss of consciousness. Patient has a history of prior falls and also complains about right mid humeral pain. 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 Patient's states he is on Coumadin reportedly for his pacemaker. He has no history of dysrhythmia or coagulopathy. ROS: Positive: Fall, easy bruising, skin tear Negative: Fever, chills, nausea, vomiting, vertigo, unusual weakness, dysuria, chest pains, palpitations, dyspnea Pain Scale: 7 - Related Data Home Medications Medication Instructions Recorded Confirmed Atorvastatin [Lipitor] 40 mg PO HS 06/08/15 06/20/17 Gabapentin [Neurontin] 600 mg PO HS 06/08/15 06/20/17 Garlic 1,000 mg PO DAILY 06/08/15 06/20/17 Metoprolol [Lopressor] 50 mg PO BID 06/08/15 06/20/17 Multivitamin [Flintstones] 1 tab PO DAILY 06/08/15 06/20/17 [place]-3S/Dha/Epa/Fish Oil [Fish 1 cap PO DAILY 06/08/15 06/20/17 Oil 1,200 mg Softgel] Montelukast [Singulair] 10 mg PO HS 11/05/15 06/20/17 Latanoprost 1 drop BOTH EYES HS 11/28/15 06/20/17 Tamsulosin [Flomax] 0.4 mg PO BID 01/27/17 06/20/17 Ferrous Sulfate 325 mg PO DAILY 04/08/17 06/20/17 Furosemide [Lasix] 40 mg PO DAILY 04/08/17 06/20/17 Loratadine [Claritin] 10 mg PO DAILY 04/08/17 06/20/17 Spironolactone [Aldactone] 50 mg PO BID 04/08/17 06/20/17 Isosorbide MONOnitrate (24 HR) 30 mg PO DAILY 06/20/17 06/20/17 [Imdur] metOLazone [Zaroxolyn] 2.5 mg PO AD 06/20/17 06/20/17 Allergies Allergy/AdvReac Type Severity Reaction Status Date / Time clopidogrel [From Plavix] Allergy Itching Verified 12/03/16 19:46 Cortisone Allergy Joint Pain Verified 12/03/16 19:46 All systems ED: reviewed and negative except as stated. Review of Systems: As Per HPI Past Medical History - Past Medical History Medical history: Reports: atrial fibrillation, cirrhosis, CHF, coronary artery disease, hyperlipidemia, hypertension, myocardial infarction, peripheral artery disease, renal disease, valvular heart disease, other Surgical history: Reports: angioplasty/stent, carotid endarterectomy, coronary bypass (CABG), pacemaker/AICD, vascular surgery, other, pacemaker Psychiatric history: Reports: no psych history - Social History Smoking Status: Never smoker Smokeless Tobacco Status: No Alcohol use: Reports: none Drug use: Reports: none Physical Exam Vital Signs Reviewed General: Patient is alert, oriented, and in no acute distress. HEENT: No facial asymmetry. Head is normocephalic and atraumatic. PERRLA, EOMI. oral mucosa moist. Patient has small blood blister in the right posterior aspect of his upper palate on the medial aspect of the gingival ridge. The midline. Cardiovascular: Heart regular rate and rhythm without clicks, rubs, gallops, or murmurs. No JVD. PMI nondisplaced. Radial pulses 2/4 equal. Respiratory: Symmetric chest rise with good respiratory effort. Bilateral breath sounds are clear without wheezing, crackles, or rhonchi. Abdomen: Bowel sounds present normoactive x-4 quadrants. Abdomen is soft, nondistended, and nontender. Musculoskeletal: Spontaneously moving all extremities. Neuro: GCS 15. Alert and oriented 4. Skin: Superficial skin tear over the dorsum of right forearm measuring approximately 3 cm in length in a U-shape. Scattered ecchymosis on patients skin. Psych: Patient's affect is appropriate for situation. - General Limitations: no limitations General appearance: alert Course Course Narrative: The patient and son at bedside state patient is on Coumadin, pharmacy finds no record. Patient's INR is 1.3. As such, it is unlikely patient is actually on Coumadin. EKG shows paced rhythm. Patient has elevated creatinine which is consistent with his baseline. Patient is anemic this is also consistent with his baseline. Patient is hyponatremic; he has been hyponatremic in the past. Of concern, patient has slight elevation in troponin. Likely multifactorial including from his chronic kidney disease. Given patient's clinical picture, recommend admission for continued evaluation and management. Given the patient lives at home alone, he will also likely need social service involvement and possible placement to senior care. I discussed the patient with the admitting hospitalist, Dr. Morales, who agrees to accept the patient for continued evaluation and management. Vital Signs Pulse Rate 63 06/20/17 09:32 Respiratory Rate 16 06/20/17 09:32 Blood Pressure 121/66 06/20/17 09:32 O2 Sat by Pulse Oximetry 99 06/20/17 09:32 Temperature 97.5 F L 06/20/17 12:43 Pulse Rate 78 06/20/17 12:43 Respiratory Rate 15 06/20/17 12:43 Blood Pressure 143/77 06/20/17 12:43 O2 Sat by Pulse Oximetry 99 06/20/17 12:43 Oxygen Delivery Oxygen Delivery Room Air Medical Decision Making - MDM Narrative Medical decision making narrative: This documentation is done with the assistance of [employer] dictation software. Though efforts have been made to ensure accuracy, there may be inaccuracies in chain sales representative or spelling or other typographical errors. I examined this patient and my medical decision-making was reviewed with the Resident Physician. I agree with the documented findings, disposition and treatment plan as described except to the extent set forth below. Patient seen and evaluated on arrival with Dr. Plascencia myself, I agree with his evaluation and management plan, supervised. Patient of stay. Patient had a fall today he said he tripped over a slipper but he did tell me and felt a little dizzy before that also. He did scrape his arm on the right side. He has lots of bruising easily is not any blood thinners but suspicious that he could be. He denies hitting his head or loss consciousness he also has a bruise on his right upper extremity which makes me wonder if he has had multiple falls in the past. We will image this area update his tetanus if he is not up-to-date and then do a workup on him he may need admission. He does have some comes in to take care of but he does live alone. He does seem to be a fall risk here. 1127 hrs.: Pertinent bring the patient into the hospital he has had multiple falls at home. I do not see any traumatic injury except for on his arm today. He does have a positive troponin with no chest pain. This may be due to his chronic renal insufficiency. They are in agreement with plan. He will need a social service evaluation while in the facility. - Medical Records Medical records reviewed: Yes I reviewed the patient's medical records. - Lab Data Lab results reviewed: Yes I reviewed the patient's lab results. Result diagrams: 06/20/17 09:43 06/20/17 09:43 Lab Results 06/20/17 06/20/17 06/20/17 Range/Units 09:43 09:43 09:43 WBC 6.5 (4.3-11.1) K/mcL RBC 3.23 L (4.19-5.50) M/mcL Hgb 10.4 L (12.9-16.9) g/dL Hct 30.5 L (37.5-50.1) % MCV 94.4 (83.0-100.0) fL MCH 32.2 (28.0-33.3) pg MCHC 34.1 (31.6-35.5) g/dL RDW 15.8 H (11.5-14.5) % Plt Count 103 L (140-400) K/mcL MPV 10.7 (9.4-12.4) fL Immature Gran % 0.2 (0-4) % Seg Neutrophils % 78.8 % Lymphocytes % 8.1 % Monocytes % 9.5 % Eosinophils % 3.2 % Basophils % 0.2 % Neutrophils # 5.2 (1.6-8.9) K/mcL Lymphocytes # 0.5 L (0.6-4.6) K/mcL Monocytes # 0.6 (0.0-1.3) K/mcL Eosinophils # 0.2 (0.0-0.6) K/mcL Basophils # 0.0 (0.0-0.2) K/mcL PT 14.2 H (9.4-12.1) Seconds INR 1.3 Sodium 124 L (136-145) mEq/L Potassium 4.1 (3.5-4.5) mEq/L Chloride 87 L (98-109) mEq/L Carbon Dioxide 23 (19-29) mEq/L BUN 70 H (8-26) mg/dL Creatinine 2.38 H (0.72-1.25) mg/dL Est GFR ( Amer) 32 L (> 60) Est GFR (Non-Af Amer) 26 L (> 60) BUN/Creatinine Ratio 29 H (6-26) Glucose 103 H (70-99) mg/dL Calculated Osmolality 279 L (280-300) Calcium 9.0 (8.6-10.8) mg/dL Troponin I (0-0.03) ng/mL 06/20/17 Range/Units 09:43 WBC (4.3-11.1) K/mcL RBC (4.19-5.50) M/mcL Hgb (12.9-16.9) g/dL Hct (37.5-50.1) % MCV (83.0-100.0) fL MCH (28.0-33.3) pg MCHC (31.6-35.5) g/dL RDW (11.5-14.5) % Plt Count (140-400) K/mcL MPV (9.4-12.4) fL Immature Gran % (0-4) % Seg Neutrophils % % Lymphocytes % % Monocytes % % Eosinophils % % Basophils % % Neutrophils # (1.6-8.9) K/mcL Lymphocytes # (0.6-4.6) K/mcL Monocytes # (0.0-1.3) K/mcL Eosinophils # (0.0-0.6) K/mcL Basophils # (0.0-0.2) K/mcL PT (9.4-12.1) Seconds INR Sodium (136-145) mEq/L Potassium (3.5-4.5) mEq/L Chloride (98-109) mEq/L Carbon Dioxide (19-29) mEq/L BUN (8-26) mg/dL Creatinine (0.72-1.25) mg/dL Est GFR ( Amer) (> 60) Est GFR (Non-Af Amer) (> 60) BUN/Creatinine Ratio (6-26) Glucose (70-99) mg/dL Calculated Osmolality (280-300) Calcium (8.6-10.8) mg/dL Troponin I 0.09 H* (0-0.03) ng/mL - Radiology Data Radiology results reviewed: Yes I reviewed the patient's radiology results. Head CT 06/20/17 09:28 IMPRESSION: 1. No acute intracranial abnormality nor acute calvarial fracture. 2. Mild age-appropriate diffuse atrophy with minimal chronic small vessel ischemic changes. D/ / Supa Bird MD / Supa Bird MD Interpreting Provider: Supa Bird MD Humerus X-Ray 06/20/17 09:29 IMPRESSION: 1. No acute findings in the right arm. 2. Bony demineralization partially limits evaluation for fractures. 3. At least mild osteoarthritic change of the right acromioclavicular joint. D/ / Supa Bird MD / Supa Bird MD Interpreting Provider: Supa Bird MD Chest X-Ray 06/20/17 09:30 IMPRESSION: No acute cardiopulmonary disease. D/ / Jacky Howell MD / Jacky Howell MD Interpreting Provider: Jacky Howell MD - EKG Data EKG #1 EKG attestation: Yes I reviewed and interpreted this EKG. EKG results narrative: EKG dated June 2017 at 09:39 interpreted as atrial paced with a rate of 63. Nonspecific ST changes. Compared to previous dated 02/20/27 shows no acute ischemic changes
[2017-06-20 09:54] LABS: Basophils % 0.2 %; Eosinophils # 0.2 K/mcL (0.0-0.6); Eosinophils % 3.2 %; Hematocrit 30.5 % (37.5-50.1); Hemoglobin 10.4 g/dL (12.9-16.9); Immature Granulocytes % 0.2 % (0-4); Lymphocytes # 0.5 K/mcL (0.6-4.6); Lymphocytes % 8.1 %; Mean Corpuscular HGB Conc 34.1 g/dL (31.6-35.5); Mean Corpuscular Hemoglobin 32.2 pg (28.0-33.3); Mean Corpuscular Volume 94.4 fL (83.0-100.0); Mean Platelet Volume 10.7 fL (9.4-12.4); Monocytes # 0.6 K/mcL (0.0-1.3); Monocytes % 9.5 %; Neutrophils # 5.2 K/mcL (1.6-8.9); Platelet Count 103 K/mcL (140-400); Red Blood Count 3.23 M/mcL (4.19-5.50); Red Cell Distribution Width 15.8 % (11.5-14.5); Segmented Neutrophils % 78.8 %
[2017-06-20 09:58] LABS: INR 1.3; Prothrombin Time 14.2 Seconds (9.4-12.1)
[2017-06-20 10:09] LABS: Potassium 4.1 mEq/L (3.5-4.5)
[2017-06-20] MEDS ORDERED: Aspirin 81 MG TAB.CHEW PO ONE (10:44)
--- NOTE | 2017-06-20 12:23 | Internal Med History&Physical ---
Date of Encounter: 06/20/17 Time of Encounter: 12:20 Assessment and Plan (1) Hyponatremia Current visit: Yes Status: Acute Hypervolemic hyponatremia due to liver cirrhosis in addition to diuretics (lasix , metolazone and spironolactone) he is on especially metolazone which I will hold for now. We will give normal saline gently. Will plan to increase sodium no faster than 6 mEq per 24 hours (2) NSTEMI (non-ST elevated myocardial infarction) Current visit: Yes Status: Acute Due to demand ischemia, FILIBERTO (3) Fall Current visit: Yes Status: Acute Recurrent falls due to deconditioning, hyponatremia. No obvious traumatic injuries other than superficial skin laceration. Check orthostatic vital signs. Physical therapy and occupational therapy to see the patient as well as social human services assistants to decide on disposition. Qualifiers: Qualified Code(s): W19.XXXA - Unspecified fall, initial encounter (4) Atrial fibrillation Current visit: Yes Status: Acute Not on anticoagulation. Qualifiers: Qualified Code(s): I48.91 - Unspecified atrial fibrillation Internal Medicine - H&P: HPI Chief complaint: fall History of present illness: Mr. King is a 86 year old male with multiple medical problems including coronary artery disease status post cabg, severe tricuspid regurgitation, cryptologic liver cirrhosis, peripheral vascular disease, chronic persistent atrial ablation not on anticoagulation, chronic hyponatremia and chronic kidney disease stage 4 presents with emergency room today after a fall. Patient mentioned that he felt today after he tripped over his slipper. Fell on the right side of his body. He denies any loss of consciousness. No recent illnesses. No focal weakness. He denies any head trauma. Past Med Surg Social Fam HX - Past Medical History Medical history: atrial fibrillation, cirrhosis, CHF, coronary artery disease, hyperlipidemia, hypertension, myocardial infarction, peripheral artery disease, renal disease, valvular heart disease, other Psychiatric history: no psych history - Past Surgical History Surgical History: angioplasty/stent, carotid endarterectomy, coronary bypass ( CABG), pacemaker/AICD, vascular surgery, other, pacemaker - Social History Smoking Status: Never smoker Smokeless Tobacco Status: No Alcohol use: none Drug use: none - Family History Father Living Status: Hx Family Cardiac Disorders: Yes Hx Family Endocrine Disorder: Yes Internal Medicine - H&P: Meds Atorvastatin [Lipitor] 40 mg PO HS 06/08/15 [History] Gabapentin [Neurontin] 600 mg PO HS 06/08/15 [History] Garlic 1,000 mg PO DAILY 06/08/15 [History] Metoprolol [Lopressor] 50 mg PO BID 06/08/15 [History] Multivitamin [Flintstones] 1 tab PO DAILY 06/08/15 [History] [place]-3S/Dha/Epa/Fish Oil [Fish Oil 1,200 mg Softgel] 1 cap PO DAILY 06/08/15 [ History] Montelukast [Singulair] 10 mg PO HS 11/05/15 [History] Latanoprost 1 drop BOTH EYES HS 11/28/15 [History] Tamsulosin [Flomax] 0.4 mg PO BID 01/27/17 [History] Ferrous Sulfate 325 mg PO DAILY 04/08/17 [History] Furosemide [Lasix] 40 mg PO DAILY 04/08/17 [History] Loratadine [Claritin] 10 mg PO DAILY 04/08/17 [History] Spironolactone [Aldactone] 50 mg PO BID 04/08/17 [History] Isosorbide MONOnitrate (24 HR) [Imdur] 30 mg PO DAILY 06/20/17 [History] metOLazone [Zaroxolyn] 2.5 mg PO AD 06/20/17 [History] 3 Allergy/AdvReac Type Severity Reaction Status Date / Time clopidogrel [From Plavix] Allergy Itching Verified 12/03/16 19:46 Cortisone Allergy Joint Pain Verified 12/03/16 19:46 All Systems PM: A 10-system review of systems was performed and is negative for pertinent findings except as documented above in the HPI. Review of systems: Ten point review of systems is negative except for HPI - Constitutional Vitals: Temp Pulse Resp BP Pulse Ox 97.4 F L 60 16 144/74 99 06/20/17 11:53 06/20/17 11:53 06/20/17 11:53 06/20/17 11:53 06/20/17 11:53 Exam: Gen.: patient is alert oriented times 3 cardiac: normal S1 S2 chest: no active wheezing or bronchial breathing abdomen distended. soft nontender nondistended normal bowel sounds lower extremity 1+ swelling. Neuro: no new focal deficits Internal Med - H&P Results - Labs CBC & Chem 7: 06/20/17 09:43 06/20/17 09:43
[2017-06-20] MEDS ORDERED: 0.9 % Sodium Chloride 1,000 ML IVC SCH (12:45)
[2017-06-20] MEDS ORDERED: Gabapentin 300 MG CAPSULE PO SCH (21:00)
[2017-06-20] MEDS ORDERED: Latanoprost 2.5 ML BOTTLE BOTH EYES SCH (21:00)
[2017-06-21 00:44] LABS: Basophils % 0.3 %; Eosinophils # 0.2 K/mcL (0.0-0.6); Hematocrit 28.3 % (37.5-50.1); Hemoglobin 9.6 g/dL (12.9-16.9); Immature Granulocytes % 0.3 % (0-4); Lymphocytes # 0.6 K/mcL (0.6-4.6); Lymphocytes % 9.5 %; Mean Corpuscular HGB Conc 33.9 g/dL (31.6-35.5); Mean Corpuscular Hemoglobin 32.4 pg (28.0-33.3); Mean Corpuscular Volume 95.6 fL (83.0-100.0); Monocytes # 0.5 K/mcL (0.0-1.3); Monocytes % 8.1 %; Red Blood Count 2.96 M/mcL (4.19-5.50); Red Cell Distribution Width 15.8 % (11.5-14.5); Segmented Neutrophils % 78.8 %
[2017-06-21 00:50] LABS: Platelet Count 93 K/mcL (140-400)
[2017-06-21 01:36] LABS: Calcium 8.2 mg/dL (8.6-10.8); Magnesium 2.2 mg/dL (1.6-2.6); Potassium 4.3 mEq/L (3.5-4.5)
[2017-06-21] MEDS ORDERED: Sodium Bicarbonate 150 MEQ in D5% in Water 1,000 ML IVC SCH (08:30)
[2017-06-21] MEDS ORDERED: Isosorbide MONOnitrate (24 HR) 30 MG TAB.ER.24H PO SCH (09:00)
[2017-06-21] MEDS ORDERED: Furosemide 20 MG TABLET PO SCH (09:00)
[2017-06-21] MEDS ORDERED: (Omega-3s/Dha/Epa/Fish Oil [Fish Oil 1,200 Mg Softgel PO SCH (09:00)
[2017-06-21 11:05] VITALS: BP 115/55
--- NOTE | 2017-06-21 16:11 | Internal Med Progress Note ---
Date of Encounter: 06/21/17 Time of Encounter: 10:40 - Assessment and plan (1) Fall Status: Acute Assessment and plan: Could be related to electrolyte abnormalities, deconditioning and hyponatremia. PT OT consulted. Patient remains at risk for continued falls. Qualifiers: Encounter type: subsequent encounter Qualified Code(s): W19.XXXD - Unspecified fall, subsequent encounter (2) Atrial fibrillation Status: Acute Assessment and plan: Rate controlled and in sinus rhythm at this time Qualifiers: Atrial fibrillation type: paroxysmal Qualified Code(s): I48.0 - Paroxysmal atrial fibrillation (3) CKD (chronic kidney disease), stage IV Status: Chronic Assessment and plan: Renal function at baseline but patient does have metabolic acidosis. Started on bicarbonate drip. (4) Elevated troponin Status: Chronic Assessment and plan: Likely from demand ischemia. (5) Hyponatremia Status: Chronic Assessment and plan: Patient does have chronic hyponatremia. Metolazone has been stopped. Also recommend starting patient on oral bicarbonate at time of discharge - Subjective Interval history: Patient feels better at this time. Wishes to go home. Explained to him that he is not yet stable to be discharged from medical standpoint. He is adamant that he go home. He understands that he will have to sign out AMA if he wishes to go. - Constitutional Vitals: Temp Pulse Resp BP Pulse Ox 98.1 F 62 12 115/55 97 06/21/17 10:58 06/21/17 10:58 06/21/17 10:58 06/21/17 10:58 06/21/17 10:58 General appearance: Present: cooperative, A&O X 3, answers questions appropriately - Respiratory Respiratory exam: Present: CTAB. Absent: accessory muscle use, rales, rhonchi, wheezes - Cardiovascular Cardiovascular exam: Present: RRR, +S1, +S2. Absent: diastolic murmur, gallop, rubs, systolic murmur Internal Medicine: Result - Labs CBC & Chem 7: 06/21/17 00:34 06/21/17 00:34 Labs: Short CBC 06/21/17 Range/Units 00:34 WBC 6.4 (4.3-11.1) K/mcL Hgb 9.6 L (12.9-16.9) g/dL Hct 28.3 L (37.5-50.1) % Plt Count 93 L (140-400) K/mcL Neutrophils # 5.0 (1.6-8.9) K/mcL BMP 06/20/17 06/21/17 16:37 00:34 Sodium 123 L 122 L Potassium 4.3 Chloride 91 L Carbon Dioxide 15 L BUN 66 H Creatinine 2.59 H Glucose 118 H Calcium 8.2 L Cardiac Enzymes 06/20/17 06/21/17 Range/Units 16:37 00:34 Troponin I 0.06 H* 0.05 H* (0-0.03) ng/mL - ABG Interpretation ABG results: PT/INR, D-dimer PT 14.2 Seconds (9.4-12.1) H 06/20/17 09:43 Consult Discharge Plan - Plan Instructions: Fall Prevention (DC)
[2017-06-23 20:11] LABS: CK-BB (CK isoenzymes) 0 % (0-0); CK-MB (CK isoenzymes) 0 % (0-4); CK-MM (CK-isoenzymes) 100 % (96-100)
--- NOTE | 2017-06-23 22:39 | Electrocardiograph Report ---
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
[2017-06-24 08:34] LABS: CK Total (Ck Isoenzymes) 149 U/L (20-200)
== END 2017-06-21 15:56 | disposition left against medical advice (07) | DRG 641 ==
LOC: EMEROO 08:57 → 2NENU 08:57
PROVIDERS: ADMIT Hospitalist; ATTEND Internal Medicine

== ENCOUNTER 2017-10-17 16:22 | Inpatient (IN) ==
[2017-10-17 21:27] LABS: Bilirubin,Total 0.6 mg/dL (0.3-1.0); Calcium 9.1 mg/dL (8.6-10.3); Potassium 4.1 mEq/L (3.5-5.1)
[2017-10-17 21:28] LABS: Albumin 3.4 g/dL (3.5-5.7); Albumin/Globulin Ratio 0.9 (1.1-2.2); Globulin 3.6 g/dL (2.4-3.5)
[2017-10-17 21:53] LABS: Basophils % 0.2 %; Eosinophils # 0.2 K/mcL (0.0-0.6); Eosinophils % 1.8 %; Immature Granulocytes % 0.6 % (0-4); Immature Platelets 2.9 % (1.1-6.1); Lymphocytes # 0.8 K/mcL (0.6-4.6); Lymphocytes % 9.1 %; Mean Corpuscular HGB Conc 32.9 g/dL (31.6-35.5); Mean Corpuscular Hemoglobin 34.7 pg (28.0-33.3); Mean Platelet Volume 11.5 fL (9.4-12.4); Monocytes # 1.1 K/mcL (0.0-1.3); Monocytes % 12.2 %; Neutrophils # 6.6 K/mcL (1.6-8.9); Platelet Count 129 K/mcL (140-400); Red Blood Count 1.99 M/mcL (4.19-5.50); Red Cell Distribution Width 17.7 % (11.5-14.5); Segmented Neutrophils % 76.1 %
[2017-10-17 21:54] LABS: Hemoglobin 6.9 g/dL (12.9-16.9)
[2017-10-17 21:55] LABS: Mean Corpuscular Volume 105.5 fL (83.0-100.0)
[2017-10-17] MEDS ORDERED: Pantoprazole 40 MG VIAL IVP ONE (22:45)
--- NOTE | 2017-10-17 23:16 | Emergency Department Note ---
Disposition Clinical Impression: Pubic ramus fracture Qualifiers: Encounter type: initial encounter Fracture type: closed Laterality: unspecified laterality Qualified Code(s): S32.599A - Other specified fracture of unspecified pubis, initial encounter for closed fracture Anemia Qualifiers: Anemia type: unspecified type Qualified Code(s): D64.9 - Anemia, unspecified Disposition: Admitted As Inpatient Condition: Undetermined General Adult HPI - General Chief complaint: ED Fall Stated complaint: fall Time Seen by Provider: 10/17/17 16:23 Source: patient Limitations: no limitations Nursing Notes Reviewed: Yes Vital Signs Reviewed: Yes - History of Present Illness HPI Narrative: 87-year-old male who had a mechanical fall from standing height now complaining of right upper extremity pain as well as lumbar region back pain. Vital signs are stable on arrival. Apparently his fall was mechanical in nature. There is no sick appears that she with the fall. He is hard of hearing and difficult to obtain history from. He denies nausea, vomiting, diarrhea, blood in his stool. He has a skin tear on the right bicipital region. Alert, moves all extremities Trachea midline Abdomen is soft and nontender Lungs are clear and equal bilaterally the patient has poor inspiratory effort Extremities are perfused, skin tear on the right bicipital region, moderate pain at the right elbow with palpation There is midline pain in the lumbar region. Medical decision making Findings consistent with pubic rami fracture. This appears to be stable. We did consult the on-call orthopedic surgeon. We proceeded with admission for physical therapy and possible need for assisted placement and at the same time obtain labs which I do not get on the patient's arrival as I did not feel these were needed given the mechanism of injury. We did stop Shanice find the patient had anemia. He has not symptomatic. He is guaiac positive. I do suspect some component of GI hemorrhage. Protonix was infused. One unit of packed red blood cells was ordered. Patient will be admitted for further evaluation of GI hemorrhage in the setting of pubic rami fracture. Pain Scale: 0 - Related Data Home Medications Medication Instructions Recorded Confirmed Atorvastatin [Lipitor] 40 mg PO HS 06/08/15 06/20/17 Gabapentin [Neurontin] 600 mg PO HS 06/08/15 06/20/17 Garlic 1,000 mg PO DAILY 06/08/15 06/20/17 Metoprolol [Lopressor] 50 mg PO BID 06/08/15 06/20/17 Multivitamin [Flintstones] 1 tab PO DAILY 06/08/15 06/20/17 [place]-3S/Dha/Epa/Fish Oil [Fish 1 cap PO DAILY 06/08/15 06/20/17 Oil 1,200 mg Softgel] Montelukast [Singulair] 10 mg PO HS 11/05/15 06/20/17 Latanoprost 1 drop BOTH EYES HS 11/28/15 06/20/17 Tamsulosin [Flomax] 0.4 mg PO BID 01/27/17 06/20/17 Ferrous Sulfate 325 mg PO DAILY 04/08/17 06/20/17 Furosemide [Lasix] 40 mg PO DAILY 04/08/17 06/20/17 Loratadine [Claritin] 10 mg PO DAILY 04/08/17 06/20/17 Spironolactone [Aldactone] 50 mg PO BID 04/08/17 06/20/17 Isosorbide MONOnitrate (24 HR) 30 mg PO DAILY 06/20/17 06/20/17 [Imdur] metOLazone [Zaroxolyn] 2.5 mg PO AD 06/20/17 06/20/17 Allergies Allergy/AdvReac Type Severity Reaction Status Date / Time clopidogrel [From Plavix] Allergy Itching Verified 12/03/16 19:46 Cortisone Allergy Joint Pain Verified 12/03/16 19:46 Past Medical History - Past Medical History Medical history: Reports: atrial fibrillation, cirrhosis, CHF, coronary artery disease, hyperlipidemia, hypertension, myocardial infarction, peripheral artery disease, renal disease, valvular heart disease, other Surgical history: Reports: angioplasty/stent, carotid endarterectomy, coronary bypass (CABG), pacemaker/AICD, vascular surgery, other, pacemaker Psychiatric history: Reports: no psych history - Social History Smoking Status: Never smoker Smokeless Tobacco Status: No Alcohol use: Reports: none Drug use: Reports: none Physical Exam - General Limitations: no limitations General appearance: alert, in no apparent distress Course Vital Signs Temperature 97.6 F 10/17/17 16:27 Pulse Rate 69 10/17/17 16:27 Respiratory Rate 16 10/17/17 16:27 Blood Pressure 135/64 10/17/17 16:27 O2 Sat by Pulse Oximetry 94 10/17/17 16:27 Temperature 97.6 F 10/17/17 16:27 Pulse Rate 59 10/17/17 22:59 Respiratory Rate 16 10/17/17 22:59 Blood Pressure 137/60 10/17/17 22:59 O2 Sat by Pulse Oximetry 100 10/17/17 22:59 Oxygen Delivery Oxygen Delivery Room Air Medical Decision Making - Lab Data Result diagrams: 10/17/17 21:45 10/17/17 20:19 Lab Results 10/17/17 10/17/17 Range/Units 20:19 21:45 WBC 8.7 (4.3-11.1) K/mcL RBC 1.99 L (4.19-5.50) M/mcL Hgb 6.9 L (12.9-16.9) g/dL Hct 21.0 L (37.5-50.1) % MCV 105.5 H D (83.0-100.0) fL MCH 34.7 H (28.0-33.3) pg MCHC 32.9 (31.6-35.5) g/dL RDW 17.7 H (11.5-14.5) % Plt Count 129 L (140-400) K/mcL MPV 11.5 (9.4-12.4) fL Immature Gran % 0.6 (0-4) % Seg Neutrophils % 76.1 % Lymphocytes % 9.1 % Monocytes % 12.2 % Eosinophils % 1.8 % Basophils % 0.2 % Neutrophils # 6.6 (1.6-8.9) K/mcL Lymphocytes # 0.8 (0.6-4.6) K/mcL Monocytes # 1.1 (0.0-1.3) K/mcL Eosinophils # 0.2 (0.0-0.6) K/mcL Basophils # 0.0 (0.0-0.2) K/mcL Immature Plt Fraction 2.9 (1.1-6.1) % Sodium 129 L (136-145) mEq/L Potassium 4.1 (3.5-5.1) mEq/L Chloride 97 L (98-107) mEq/L Carbon Dioxide 25 (23-29) mEq/L BUN 120 H (8-23) mg/dL Creatinine 2.54 H (0.70-1.30) mg/dL Est GFR ( Amer) 29 L (> 60) Est GFR (Non-Af Amer) 24 L (> 60) BUN/Creatinine Ratio 47 H (6-26) Glucose 185 H (70-105) mg/dL Calculated Osmolality 311 H (280-300) Calcium 9.1 (8.6-10.3) mg/dL Total Bilirubin 0.6 (0.3-1.0) mg/dL AST 35 (13-39) Units/L ALT 20 (7-52) Units/L Alkaline Phosphatase 118 H (34-104) Units/L Serum Total Protein 7.0 (6.4-8.9) g/dL Albumin 3.4 L (3.5-5.7) g/dL Globulin 3.6 H (2.4-3.5) g/dL Albumin/Globulin Ratio 0.9 L (1.1-2.2) Critical Care Time Total Critical Care Time: 35 Attestation: I spent greater than 35 minutes of critical care time resuscitating this acutely ill patient suffering from anemia and trauma with fall. This was excluding billable procedures.
--- NOTE | 2017-10-17 23:22 | Internal Med History&Physical ---
Addendum entered and electronically signed by Jackie Anguiano MD 10/18/17 03:51: (7) 3.3 cm fusiform abdominal aortic aneurysm. 3.0-3.4 cm: Every 3 years. Surveillance recommended, per radiology. Will consult cardiology. (8) Abdomen/Pelvis CT 10/17/17 16:36 Subacute to chronic appearing nondisplaced right posterior 12th rib fracture new from 04/08/2017. -Early and adequate pain relief -Respiratory care, including use of incentive spirometry to prevent atelactasis (9) Anemia - Hgb 6.9 Type and screen in ED Tylenol 650 mg 30 min before transfusion Benadryl 25 mg PO 30 min before transfusion 1 U ordered Post transfusion CBC. Serial H/H. Plan for transfusion if Hgb < 7 Stool guiac pending (10) History of Afib Not on Anticoagulation Continuous tele HAS-BLED SCORE 3: Pt at major risk of bleeding at this time. Cardiology on consult, appreciate recs Original Note: <Jackie Anguiano - Last Filed: 10/18/17 03:47> Date of Encounter: 10/18/17 Time of Encounter: 23:20 Assessment and Plan (1) Pubic bone fracture Status: Acute Suspected traumatic nondisplaced right inferior pubic ramus fracture likely reflecting a pelvic insufficiency fracture. Abdomen/Pelvis CT 10/17/17 16:36 1. Subacute to chronic appearing nondisplaced right posterior 12th rib fracture new from 04/08/2017. 2. Acute nondisplaced right inferior pubic ramus fracture -Medical pain management according to severity -Ortho on consult, appreciate recs - Plan for Consult to physical therapy/ occupational therapy following ortho recommendations -Eventual Goal for adequate pain control and early mobilization, as tolerated -Awaiting med rec completion Qualifiers: Encounter type: subsequent encounter Sublocation of pubis: unspecified portion of pubis Fracture type: closed Laterality: left Fracture healing: with routine healing Qualified Code(s): S32.502D - Unspecified fracture of left pubis, subsequent encounter for fracture with routine healing (2) FILIBERTO (acute kidney injury) Status: Acute FILIBERTO likely secondary due to reduced effective arterial blood volume Continue gentle hydration Complete FILIBERTO workoup. Urine electrolytes pending, CBC, BMP pending in a.m. (3) Dehydration Status: Acute Plan as above. (4) Code status needs review Status: Acute Patient states he is full code.He is alert and oriented at this time to person, place and time, we plan to accommodate personal wishes. Staff to contact PoA as per RN signout, patient was supposed previous DNR (5) DVT prophylaxis Status: Acute HAS-BLED Score 3 (Cr > 2.26, Age > 65, hx of bleed): Pt considered at high risk for bleeding. Due to risk of bleeding, contraindicated. Mechanical prophylaxis with EPCD. (6) Chronic toe ulcer Status: Chronic No loss in ROM ON exam. Pulses intact. No cyanosis. Consult wound care. Qualifiers: Laterality: left Non-pressure ulcer stage: limited to breakdown of skin Qualified Code(s): L97.521 - Non-pressure chronic ulcer of other part of left foot limited to breakdown of skin Internal Medicine - H&P: HPI Chief complaint: R UE pain, back pain Admitted From: Home History of present illness: Mr. King is a 87 year old male presenting for CAD status post CABG, hyperlipidemia, following a fall this morning at 7 AM. States he fell on out lesion of door. Unsure whether he hit his head. Patient states he pressed life alert button which is how he presented to the emergency department. Denies chest pain, shortness of breath, any pain in extremities. Denies pain back. Patient lives alone at home. He is hard of hearing however answers all questions appropriately when asked. Past Med Surg Social Fam HX - Past Medical History Medical history: atrial fibrillation, cirrhosis, CHF, coronary artery disease, hyperlipidemia, hypertension, myocardial infarction, peripheral artery disease, renal disease, valvular heart disease, other Psychiatric history: no psych history - Past Surgical History Surgical History: angioplasty/stent, carotid endarterectomy, coronary bypass ( CABG), pacemaker/AICD, vascular surgery, other, pacemaker - Social History Smoking Status: Never smoker Smokeless Tobacco Status: No Alcohol use: none Drug use: none - Family History Father Living Status: Hx Family Cardiac Disorders: Yes Hx Family Endocrine Disorder: Yes Internal Medicine - H&P: Meds Atorvastatin [Lipitor] 40 mg PO HS 06/08/15 [History] Gabapentin [Neurontin] 600 mg PO HS 06/08/15 [History] Garlic 1,000 mg PO DAILY 06/08/15 [History] Metoprolol [Lopressor] 50 mg PO BID 06/08/15 [History] Multivitamin [Flintstones] 1 tab PO DAILY 06/08/15 [History] [place]-3S/Dha/Epa/Fish Oil [Fish Oil 1,200 mg Softgel] 1 cap PO DAILY 06/08/15 [ History] Montelukast [Singulair] 10 mg PO HS 11/05/15 [History] Latanoprost 1 drop BOTH EYES HS 11/28/15 [History] Tamsulosin [Flomax] 0.4 mg PO BID 01/27/17 [History] Ferrous Sulfate 325 mg PO DAILY 04/08/17 [History] Furosemide [Lasix] 40 mg PO DAILY 04/08/17 [History] Loratadine [Claritin] 10 mg PO DAILY 04/08/17 [History] Spironolactone [Aldactone] 50 mg PO BID 04/08/17 [History] Isosorbide MONOnitrate (24 HR) [Imdur] 30 mg PO DAILY 06/20/17 [History] metOLazone [Zaroxolyn] 2.5 mg PO AD PRN 06/20/17 [History] Omeprazole [PriLOSEC] 20 mg PO BIDAC #60 capsule.dr 10/21/17 [Rx] Sucralfate [Carafate] 1 gm PO QIDAC #30 udc 10/21/17 [Rx] 3 Allergy/AdvReac Type Severity Reaction Status Date / Time clopidogrel [From Plavix] Allergy Itching Verified 12/03/16 19:46 Cortisone Allergy Joint Pain Verified 12/03/16 19:46 All Systems PM: A 10-system review of systems was performed and is negative for pertinent findings except as documented above in the HPI. - Constitutional Vitals: Temp Pulse Resp BP Pulse Ox 97.6 F 59 16 137/60 100 10/17/17 16:27 10/17/17 22:59 10/17/17 22:59 10/17/17 22:59 10/17/17 22:59 General appearance: Present: cooperative, A&O X 3, no acute distress - Respiratory Respiratory exam: Present: CTAB. Absent: accessory muscle use, chest wall tenderness, wheezes - Cardiovascular Cardiovascular exam: Present: +S1, +S2. Absent: irregular rhythm, tachycardia - GI/Abdominal GI/Abdominal exam: Present: normal bowel sounds. Absent: tenderness, no peritoneal signs Additional comments: Dry bandage at periumbilical navel. No flank discoloration on anterior abdomen. No discoloration noted in posterior back. - Extremities Exam Extremities exam: Absent: calf tenderness, tenderness Additional comments: Prolonged capillary refills. Pedal Edema +1/4 b/l in LE. No tenderness in calfs. Feet: LEFT: Dorsalis pedis +1 b/l. Granulated overlying 2nd Toe. Non-painful on palpation. FULL ROM. RIGHT: Dorsalis pedis +1 b/l. No ulcerations noted on extremities. Non- painful on palpation. Full ROM UE: No echymossis, erythema or punctuate wound noted in anterior or posterior shoulder bilaterally. Internal Med - H&P Results - Labs CBC & Chem 7: 10/17/17 21:45 10/17/17 20:19 - EKG Data EKG comments: 10/18/17 01:34 Regular rate 61. Interval 142 ms/ QRS duration 193/ QTC 496 - Impressions ITS Impressions Abdomen/Pelvis CT 10/17/17 16:36 IMPRESSION: 1. Subacute to chronic appearing nondisplaced right posterior 12th rib fracture new from 04/08/2017. 2. Acute nondisplaced right inferior pubic ramus fracture. 3. Mildly enlarged main pulmonary artery as can be seen with pulmonary arterial hypertension. Status post CABG. 4. Cholelithiasis. 5. Small volume of ascites significantly decreased from 04/08/2017. 6. 3.3 cm fusiform abdominal aortic aneurysm. See recommendations below. Managing Abdominal Aortic Aneurysms 3.0-3.4 cm: Every 3 years. *For abdominal aortas with maximum diameter of 2.6-2.9 cm meeting criteria for AAA (>50% of proximal normal segment). Reference: J Vasc Surg. 2008;50(4 Suppl):S2-49 D/ / Sanjiv Lopez MD / Sanjiv Lopez MD Interpreting Provider: Sanjiv Lopez MD Chest CT 10/17/17 16:36 IMPRESSION: 1. Subacute to chronic appearing nondisplaced right posterior 12th rib fracture new from 04/08/2017. 2. Acute nondisplaced right inferior pubic ramus fracture. 3. Mildly enlarged main pulmonary artery as can be seen with pulmonary arterial hypertension. Status post CABG. 4. Cholelithiasis. 5. Small volume of ascites significantly decreased from 04/08/2017. 6. 3.3 cm fusiform abdominal aortic aneurysm. See recommendations below. Managing Abdominal Aortic Aneurysms 3.0-3.4 cm: Every 3 years. *For abdominal aortas with maximum diameter of 2.6-2.9 cm meeting criteria for AAA (>50% of proximal normal segment). Reference: J Vasc Surg. 2008;50(4 Suppl):S2-49 D/ / Sanjiv Lopez MD / Sanjiv Lopez MD Interpreting Provider: Sanjiv Lopez MD Chest X-Ray 10/17/17 16:36 IMPRESSION: 1. No acute process identified. D/ / Migue Hairston MD / Migue Hairston MD Interpreting Provider: Migue Hairston MD Elbow X-Ray 10/17/17 16:36 IMPRESSION: 1. No acute osseous abnormality of the right elbow or right shoulder identified. 2. Severe osteopenia. 3. Mild ulnar trochlear and moderate radiocapitellar osteoarthritis. 4. Mild glenohumeral and acromioclavicular osteoarthritis. 5. Atherosclerotic disease. D/ / Migue Hairston MD / Migue Hairston MD Interpreting Provider: Migue Hairston MD Head CT 10/17/17 16:36 IMPRESSION: No acute intracranial abnormality. D/ / Pierre Saldana / Pierre Saldana Interpreting Provider: Pierre Saldana Lumbar Spine CT 10/17/17 16:36 IMPRESSION: 1. No acute fracture of the thoracic or lumbar spine. 2. Re- demonstration of chronic compression deformities of the T8 and T10 vertebral body similar to prior CT dated July 25, 2016. 3. Osteopenia. 4. Multilevel mild spondylosis of the thoracolumbar spine. 5. Moderate to severe facet arthrosis at L4-5 and L5-S1. 6. Severe atherosclerotic disease. 7. Please see dedicated CT chest, abdomen, and pelvis dictation same day for complete intrathoracic and intra-abdominal findings. D/ / Migue Hairston MD / Migue Hairston MD Interpreting Provider: Migue Hairston MD Pelvis X-Ray 10/17/17 16:36 IMPRESSION: Linear lucency in the right inferior pubic ramus. Symphysis pubis interval is normal. Femoral heads align normally with the acetabula. There are moderate degenerate changes in the hips bilaterally. RECOMMENDATION: 1. Suspected traumatic nondisplaced right inferior pubic ramus fracture. Recommend CT of the pelvis for further evaluation. The left inferior pubic ramus is not well seen due to obliquity. 2. Moderate bilateral hip degenerative changes. 3. Osteopenia. 4. Atherosclerosis. D/ / Ariel Iniguez MD / Ariel Iniguez MD Interpreting Provider: Ariel Iniguez MD Shoulder X-Ray 10/17/17 16:36 IMPRESSION: 1. No acute osseous abnormality of the right elbow or right shoulder identified. 2. Severe osteopenia. 3. Mild ulnar trochlear and moderate radiocapitellar osteoarthritis. 4. Mild glenohumeral and acromioclavicular osteoarthritis. 5. Atherosclerotic disease. D/ / Migue Hairston MD / Migue Hairston MD Interpreting Provider: Migue Hairston MD Thoracic Spine CT 10/17/17 16:36 IMPRESSION: 1. No acute fracture of the thoracic or lumbar spine. 2. Re- demonstration of chronic compression deformities of the T8 and T10 vertebral body similar to prior CT dated July 25, 2016. 3. Osteopenia. 4. Multilevel mild spondylosis of the thoracolumbar spine. 5. Moderate to severe facet arthrosis at L4-5 and L5-S1. 6. Severe atherosclerotic disease. 7. Please see dedicated CT chest, abdomen, and pelvis dictation same day for complete intrathoracic and intra-abdominal findings. D/ / Migue Hairston MD / Migue Hairston MD Interpreting Provider: Migue Hairston MD Cervical Spine CT 10/17/17 16:37 IMPRESSION: No acute abnormality of the cervical spine. D/ / Sanjiv Lopez MD / Sanjiv Lopez MD Interpreting Provider: Sanjiv Lopez MD <Rayne Carbone - Last Filed: 11/02/17 04:17> Date of Encounter: 10/17/17 Internal Medicine - H&P: HPI History of present illness: Mr. King is a 87 year old male All Systems PM: A 10-system review of systems was performed and is negative for pertinent findings except as documented above in the HPI. - Constitutional Vitals: Temp Pulse Resp BP Pulse Ox 98.5 F 81 16 117/64 95 10/21/17 10:00 10/21/17 10:00 10/21/17 10:00 10/21/17 10:00 10/21/17 10:00 Internal Med - H&P Results - Labs CBC & Chem 7: 10/21/17 01:23 10/21/17 01:23 - Impressions ITS Impressions Liver Ultrasound 10/20/17 07:00 IMPRESSION: Mildly cirrhotic appearance to the liver without focal liver lesion or intrahepatic biliary duct dilatation. Mild ascites to the right upper quadrant, similar to mildly worsened from recent CT exam. Cholelithiasis without definite evidence for acute cholecystitis. Mild nonspecific gallbladder wall thickening. If there is clinical concern for gallbladder pathology consider nuclear medicine study with gallbladder ejection fraction. D/ / 10/20/2017 08:35:30 Paulie Alcaraz MD / [place] Interpreting Provider: Paulie Alcaraz MD - Attending Attestation I personally and independently interviewed and examined the patient, and I reviewed the patient's medical record. I am in agreement with the residents assessment and proposed treatment plan. I discussed my findings and recommendation with the patient and answer his questions. The patient's medical records were edited to accurately reflect this encounter.
[2017-10-18] MEDS ORDERED: Acetaminophen 325 MG TABLET PO ONE (00:17)
[2017-10-18] MEDS ORDERED: Naloxone 0.4 MG/ML INJ IVP PRN (00:37)
[2017-10-18] MEDS ORDERED: OXYCODONE Oral CONC 10 MG/0.5 ML ORAL.SYG SL PRN (00:37)
[2017-10-18] MEDS ORDERED: 0.9 % Sodium Chloride 1,000 ML IVC SCH (00:45)
[2017-10-18] MEDS ORDERED: 0.9 % Sodium Chloride 500 ML ONE ×2 (03:20→09:54)
--- NOTE | 2017-10-18 05:45 | Orthopedic Consult Note ---
Date of Encounter: 10/18/17 Time of Encounter: 05:44 History of Present Illness HPI: Mr. King is a 87 year old male Status post fall evaluation for nondisplaced right pelvic fracture. Patient seen this morning resting comfortably. Right lower extremity neurovascularly intact. Slight painful motion. Passive X-rays reviewed nondisplaced inferior pubic rami fracture Nonsurgical recommend weightbearing as tolerated with walker. Follow-up as needed as outpatient Past Med Surg Social Fam HX - Past Medical History Medical history: atrial fibrillation, cirrhosis, CHF, coronary artery disease, hyperlipidemia, hypertension, myocardial infarction, peripheral artery disease, renal disease, valvular heart disease, other Psychiatric history: no psych history - Past Surgical History Surgical History: angioplasty/stent, carotid endarterectomy, coronary bypass ( CABG), pacemaker/AICD, vascular surgery, other, pacemaker - Social History Smoking Status: Never smoker Smokeless Tobacco Status: No Alcohol use: none Drug use: none - Family History Father Living Status: Hx Family Cardiac Disorders: Yes Hx Family Endocrine Disorder: Yes Medications and Allergies Atorvastatin [Lipitor] 40 mg PO HS 06/08/15 [History] Gabapentin [Neurontin] 600 mg PO HS 06/08/15 [History] Garlic 1,000 mg PO DAILY 06/08/15 [History] Metoprolol [Lopressor] 50 mg PO BID 06/08/15 [History] Multivitamin [Flintstones] 1 tab PO DAILY 06/08/15 [History] [place]-3S/Dha/Epa/Fish Oil [Fish Oil 1,200 mg Softgel] 1 cap PO DAILY 06/08/15 [ History] Montelukast [Singulair] 10 mg PO HS 11/05/15 [History] Latanoprost 1 drop BOTH EYES HS 11/28/15 [History] Tamsulosin [Flomax] 0.4 mg PO BID 01/27/17 [History] Ferrous Sulfate 325 mg PO DAILY 04/08/17 [History] Furosemide [Lasix] 40 mg PO DAILY 04/08/17 [History] Loratadine [Claritin] 10 mg PO DAILY 04/08/17 [History] Spironolactone [Aldactone] 50 mg PO BID 04/08/17 [History] Isosorbide MONOnitrate (24 HR) [Imdur] 30 mg PO DAILY 06/20/17 [History] metOLazone [Zaroxolyn] 2.5 mg PO AD PRN 06/20/17 [History] 3 Allergy/AdvReac Type Severity Reaction Status Date / Time clopidogrel [From Plavix] Allergy Itching Verified 12/03/16 19:46 Cortisone Allergy Joint Pain Verified 12/03/16 19:46 All Systems Reviewed: The remainder of the systems were reviewed and are negative Physical Exam - Constitutional Vitals: Temp Pulse Resp BP Pulse Ox 97.6 F 60 16 114/58 96 10/18/17 04:21 10/18/17 04:21 10/18/17 04:21 10/18/17 04:21 10/18/17 04:21 Results - Labs Result Diagrams: 10/17/17 21:45 10/17/17 20:19 Labs: Abnormal lab results RBC 1.99 M/mcL (4.19-5.50) L 10/17/17 21:45 Hgb 6.9 g/dL (12.9-16.9) L 10/17/17 21:45 Hct 21.0 % (37.5-50.1) L 10/17/17 21:45 MCV 105.5 fL (83.0-100.0) H D 10/17/17 21:45 MCH 34.7 pg (28.0-33.3) H 10/17/17 21:45 RDW 17.7 % (11.5-14.5) H 10/17/17 21:45 Plt Count 129 K/mcL (140-400) L 10/17/17 21:45 Sodium 129 mEq/L (136-145) L 10/17/17 20:19 Chloride 97 mEq/L (98-107) L 10/17/17 20:19 BUN 120 mg/dL (8-23) H 10/17/17 20:19 Creatinine 2.54 mg/dL (0.70-1.30) H 10/17/17 20:19 Est GFR ( Amer) 29 (> 60) L 10/17/17 20:19 Est GFR (Non-Af Amer) 24 (> 60) L 10/17/17 20:19 BUN/Creatinine Ratio 47 (6-26) H 10/17/17 20:19 Glucose 185 mg/dL (70-105) H 10/17/17 20:19 Calculated Osmolality 311 (280-300) H 10/17/17 20:19 Alkaline Phosphatase 118 Units/L (34-104) H 10/17/17 20:19 Albumin 3.4 g/dL (3.5-5.7) L 10/17/17 20:19 Globulin 3.6 g/dL (2.4-3.5) H 10/17/17 20:19 Albumin/Globulin Ratio 0.9 (1.1-2.2) L 10/17/17 20:19 All other labs normal. Consult Discharge Plan - Plan Referrals: NONE,PCP [Primary Care Provider] -
--- NOTE | 2017-10-18 08:41 | Internal Med Progress Note ---
<Jw Natarajan - Last Filed: 10/18/17 08:51> Date of Encounter: 10/18/17 Time of Encounter: 07:15 - Assessment and plan (1) Anemia Current Visit: Yes Status: Acute Assessment and plan: Likely acute on chronic anemia Likely multifactorial Chronic anemia with hgb around 9.5-10 Known history of iron deficiency Known history of chronic kidney disease Reportedly guaiac positive in the ER with report of black colored stools could have GI component of anemia Weakness with mechanical fall reported at home Anemia appears macrocytic in nature Will transfuse 1 unit PRBCs and recheck hemoglobin We will check iron, folate, B12 We will consult GI for recommendations of continue management/care and discuss possible need of endoscopy will hold any additional anticoagulation Qualifiers: Anemia type: other cause Other causes of anemia: acute posthemorrhagic Qualified Code(s): D62 - Acute posthemorrhagic anemia (2) Pubic ramus fracture Current Visit: Yes Status: Acute Assessment and plan: Likely obtained during mechanical fall Orthopedic surgery recommends nonsurgical management at this time with follow- up as outpatient PT/OT consult when hemoglobin stabilized Ortho recommends weightbearing as tolerated with walker Continue pain control Qualifiers: Encounter type: initial encounter Fracture type: closed Laterality: right Qualified Code(s): S32.591A - Other specified fracture of right pubis, initial encounter for closed fracture (3) CKD (chronic kidney disease), stage IV Current Visit: Yes Status: Chronic Assessment and plan: Patient has history of chronic kidney disease stage IV Current creatinine slightly elevated, but not call ak i renal function in 03/05 was creatinine of 1.9 serum creatinine over the last few months has been 2.3 or higher We will stop IV fluids We will stop your electrolytes We will obtain UA (4) Dehydration Current Visit: Yes Status: Acute Assessment and plan: Oral mucosa dry Slightly increased serum creatinine likely due to dehydration We will hold additional fluids due to last echo that showed EF 35% Encourage by mouth intake (5) Heart failure with reduced ejection fraction Current Visit: Yes Status: Chronic Assessment and plan: Heart failure with reduced ejection fraction Last echocardiogram performed on 07/26/16 showed EF of 35%, moderate to severe tricuspid regurg, moderate mitral regurg, mild aortic regurg We will be careful with additional fluids and monitor fluid status closely Continue home medications Qualifiers: Heart failure chronicity: chronic Qualified Code(s): I50.22 - Chronic systolic (congestive) heart failure (6) Atrial fibrillation Current Visit: Yes Status: Chronic Assessment and plan: Patient has history of atrial fibrillation He is not anticoagulated, HAS-BLED score of 3 Rate controlled with metoprolol Qualifiers: Atrial fibrillation type: paroxysmal Qualified Code(s): I48.0 - Paroxysmal atrial fibrillation (7) Cirrhosis Current Visit: No Status: Chronic Assessment and plan: Patient has history of liver cirrhosis with past episodes of increased ammonia and hepatic encephalopathy Patient suffered reported mechanical fall We will obtain ammonia level Qualifiers: Hepatic cirrhosis type: unspecified hepatic cirrhosis Ascites presence: without ascites Qualified Code(s): K74.60 - Unspecified cirrhosis of liver (8) DVT prophylaxis Current Visit: Yes Status: Acute Assessment and plan: We will hold chemical prophylaxis on account of acute bleed We will start SCDs (9) PAD (peripheral artery disease) Current Visit: No Status: Chronic (10) Chronic toe ulcer Current Visit: Yes Status: Chronic Assessment and plan: Wound care Qualifiers: Laterality: left Non-pressure ulcer stage: limited to breakdown of skin Qualified Code(s): L97.521 - Non-pressure chronic ulcer of other part of left foot limited to breakdown of skin - Subjective Interval history: Patient resting comfortably in bed. He is slightly hard of hearing. He has no immediate concerns/complaints. He does report that he has some difficulty urinating and typically urinates in small volumes. He denies having any particular weakness, lightheadedness, fever, dysuria, shortness of breath, chest pain, hematochezia. He does report having black colored stools, but does report also taking iron supplementation. - Constitutional Vitals: Temp Pulse Resp BP Pulse Ox 98.9 F 60 16 126/68 100 10/18/17 07:14 10/18/17 07:14 10/18/17 07:14 10/18/17 07:14 10/18/17 06:56 General appearance: Present: cooperative, A&O X 3, no acute distress Exam: General: Cooperative, pleasant, no acute distress, alert and oriented 3, answers questions appropriately HEENT: Normocephalic, atraumatic, neck supple, trachea midline, Conjunctiva pallor, sclera anicteric, oral mucosa dry Respiratory: No accessory muscle usage, clear to auscultation bilaterally, no wheezes/rhonchi/rales appreciated Cardiovascular: Regular rate and rhythm, S1 and S2 present, no murmurs/rubs/ gallops/clicks appreciated, device notes in patient left/superior chest GI/abdominal: Nondistended, nontender, soft, normal bowel sounds, no peritoneal signs Extremities: No calf tenderness, no pedal edema appreciated, warm, lower extremity pulses palpable and symmetrical Neurological: Alert and oriented 3, no facial droop, no focal deficits Skin: Dry, intact, normal color Internal Medicine: Result - Labs CBC & Chem 7: 10/17/17 21:45 10/17/17 20:19 - VTE Documentation of Mechanical Device: Intermittent pneumatic compression device Consult Discharge Plan - Plan Referrals: NONE,PCP [Primary Care Provider] - <Phillip Camara - Last Filed: 10/18/17 19:49> Date of Encounter: 10/18/17 - Constitutional Vitals: Temp Pulse Resp BP Pulse Ox 98.0 F 90 18 140/70 96 10/18/17 14:45 10/18/17 14:45 10/18/17 14:45 10/18/17 14:45 10/18/17 14:45 Internal Medicine: Result - Labs CBC & Chem 7: 10/18/17 13:00 10/18/17 08:19 Labs: Short CBC 10/18/17 Range/Units 13:00 Hgb 8.2 L (12.9-16.9) g/dL Hct 25.1 L (37.5-50.1) % - ABG Interpretation ABG results: PT/INR, D-dimer PT 12.2 Seconds (9.4-12.1) H 10/18/17 08:19 - Attending Attestation I performed a [id number] diagnostic evaluation of this patient and my medical decision-making was reviewed with the Resident Physician, Dr Morteza Natarajan. I agree with the documented findings, disposition and treatment plan as described except to the extent set forth below. Physical exam: Gen: NAD, AAOx3 Heart: RRR, S1S2, no murmurs Lungs: CTABL Abdomen: S, NT, + bowel sounds Assessment and plan: 87-year-old man status post fall with resulting pelvic ramus fracture. Appreciate orthopedic service input. Nonoperative management. Pain control. PT OT evaluation. Social work for possible placement. Phillip Camara MD
[2017-10-18 08:47] LABS: Basophils % 0.2 %; Eosinophils # 0.3 K/mcL (0.0-0.6); Eosinophils % 3.2 %; Hematocrit 24.3 % (37.5-50.1); Hematocrit 25.1 % (37.5-50.1); Immature Granulocytes % 0.5 % (0-4); Lymphocytes # 0.9 K/mcL (0.6-4.6); Lymphocytes % 10.5 %; Mean Corpuscular HGB Conc 31.9 g/dL (31.6-35.5); Mean Corpuscular Hemoglobin 32.7 pg (28.0-33.3); Mean Corpuscular Volume 102.4 fL (83.0-100.0); Mean Platelet Volume 11.9 fL (9.4-12.4); Monocytes # 0.9 K/mcL (0.0-1.3); Monocytes % 10.8 %; Neutrophils # 6.5 K/mcL (1.6-8.9); Platelet Count 140 K/mcL (140-400); Red Blood Count 2.45 M/mcL (4.19-5.50); Red Cell Distribution Width 17.8 % (11.5-14.5); Segmented Neutrophils % 74.8 %
[2017-10-18 08:54] LABS: INR 1.1; Prothrombin Time 12.2 Seconds (9.4-12.1)
[2017-10-18 08:59] LABS: Calcium 9.1 mg/dL (8.6-10.3); Magnesium 2.5 mg/dL (1.6-2.6); Phosphorous 4.3 mg/dL (2.7-4.5); Potassium 4.7 mEq/L (3.5-5.1)
[2017-10-18] MEDS: Loratadine 10 MG TABLET PO SCH (09:01)
[2017-10-18] MEDS: Isosorbide MONOnitrate (24 HR) 30 MG TAB.ER.24H PO SCH (09:01)
[2017-10-18 10:04] LABS: % Iron Saturation 4 % (20-55); Ferritin 67 ng/ml (20-250); Iron 19 mcg/dL (65-175); Transferrin 317 mg/dL (203-362)
[2017-10-18] MEDS: Lactulose Oral Soln 20 GM/30 ML UDC PO SCH ×2 (10:17→20:49)
[2017-10-18 10:30] LABS: Vitamin B12 970 pg/mL (250-1100)
[2017-10-18 10:46] LABS: Folate > 22.3 ng/mL (3.0-16.0)
[2017-10-18 13:13] LABS: Hematocrit 25.1 % (37.5-50.1); Hemoglobin 8.2 g/dL (12.9-16.9)
[2017-10-18] MEDS: Gabapentin 300 MG CAPSULE PO SCH (20:48)
[2017-10-18] MEDS: Latanoprost 2.5 ML BOTTLE BOTH EYES SCH (20:50)
[2017-10-18 21:04] LABS: Hematocrit 22.9 % (37.5-50.1); Hemoglobin 7.7 g/dL (12.9-16.9)
[2017-10-18] MEDS: OXYCODONE Oral CONC 10 MG/0.5 ML ORAL.SYG SL PRN (21:13)
[2017-10-18 22:17] LABS: Bilirubin,Urine Negative (Negative); Blood,Urine Negative (Negative); Clarity,Urine Clear (Clear); Color,Urine Yellow (Yellow); Glucose,Urine (UA) Normal (Normal); Ketones,Urine Negative (Negative); Leukocyte Esterase,Urine Negative (Negative); Nitrite,Urine Negative (Negative); Protein,Urine Negative (Neg-Trace); Specific Gravity,Urine 1.015 (1.010-1.025); Urobilinogen,Urine Normal (Normal)
[2017-10-18 23:27] LABS: Hemoglobin 7.6 g/dL (12.9-16.9)
[2017-10-19 03:30] LABS: Eosinophils # 0.2 K/mcL (0.0-0.6); Eosinophils % 2.8 %; Hematocrit 23.8 % (37.5-50.1); Hemoglobin 7.9 g/dL (12.9-16.9); Immature Granulocytes % 0.8 % (0-4); Lymphocytes # 0.8 K/mcL (0.6-4.6); Mean Corpuscular HGB Conc 33.2 g/dL (31.6-35.5); Mean Corpuscular Hemoglobin 32.5 pg (28.0-33.3); Mean Corpuscular Volume 97.9 fL (83.0-100.0); Mean Platelet Volume 11.3 fL (9.4-12.4); Monocytes # 0.9 K/mcL (0.0-1.3); Monocytes % 10.9 %; Neutrophils # 5.9 K/mcL (1.6-8.9); Platelet Count 141 K/mcL (140-400); Red Blood Count 2.43 M/mcL (4.19-5.50); Red Cell Distribution Width 18.1 % (11.5-14.5); Segmented Neutrophils % 75.5 %
[2017-10-19 03:51] LABS: Calcium 8.5 mg/dL (8.6-10.3); Potassium 4.6 mEq/L (3.5-5.1)
[2017-10-19 07:28] LABS: Hematocrit 22.4 % (37.5-50.1); Hemoglobin 7.4 g/dL (12.9-16.9)
--- NOTE | 2017-10-19 08:54 | Internal Med Progress Note ---
<Jw Natarajan - Last Filed: 10/19/17 16:38> Date of Encounter: 10/19/17 Time of Encounter: 08:55 - Assessment and plan (1) Anemia Current Visit: Yes Status: Acute Assessment and plan: Likely acute on chronic anemia Likely multifactorial Chronic anemia with hgb around 9.5-10 Known history of iron deficiency Known history of chronic kidney disease Reportedly guaiac positive in the ER with report of black colored stools could have GI component of anemia Weakness with mechanical fall reported at home Anemia appears macrocytic in nature Folate and B12 within normal limits Appears to have continued iron deficiency Additional unit PRBC transfuse today Will transfuse 1 unit PRBCs and recheck hemoglobin again today GI following appreciate recommendations for continued management/care Patient to undergo further workup Plan for EGD today will hold any additional anticoagulation Qualifiers: Anemia type: other cause Other causes of anemia: acute posthemorrhagic Qualified Code(s): D62 - Acute posthemorrhagic anemia (2) Pubic ramus fracture Current Visit: Yes Status: Acute Assessment and plan: Likely obtained during mechanical fall Orthopedic surgery recommends nonsurgical management at this time with follow- up as outpatient PT/OT consult when hemoglobin stabilized Ortho recommends weightbearing as tolerated with walker Continue pain control Qualifiers: Encounter type: initial encounter Fracture type: closed Laterality: right Qualified Code(s): S32.591A - Other specified fracture of right pubis, initial encounter for closed fracture (3) CKD (chronic kidney disease), stage IV Current Visit: Yes Status: Chronic Assessment and plan: Patient has history of chronic kidney disease stage IV Current creatinine slightly elevated, but not call ak i renal function in 03/05 was creatinine of 1.9 serum creatinine over the last few months has been 2.3 or higher UA negative (4) Dehydration Current Visit: Yes Status: Acute Assessment and plan: Some improvement seen today Slightly increased serum creatinine likely due to dehydration We will hold additional fluids due to last echo that showed EF 35% Encourage by mouth intake (5) Heart failure with reduced ejection fraction Current Visit: Yes Status: Chronic Assessment and plan: Heart failure with reduced ejection fraction Last echocardiogram performed on 07/26/16 showed EF of 35%, moderate to severe tricuspid regurg, moderate mitral regurg, mild aortic regurg We will be careful with additional fluids and monitor fluid status closely Continue home medications Qualifiers: Heart failure chronicity: chronic Qualified Code(s): I50.22 - Chronic systolic (congestive) heart failure (6) Atrial fibrillation Current Visit: Yes Status: Chronic Assessment and plan: Patient has history of atrial fibrillation He is not anticoagulated, HAS-BLED score of 3 Rate controlled with metoprolol Qualifiers: Atrial fibrillation type: paroxysmal Qualified Code(s): I48.0 - Paroxysmal atrial fibrillation (7) Cirrhosis Current Visit: No Status: Chronic Assessment and plan: Patient has history of liver cirrhosis with past episodes of increased ammonia and hepatic encephalopathy Patient suffered reported mechanical fall Ammonia elevated at 69 Given dose of lactulose yesterday Qualifiers: Hepatic cirrhosis type: unspecified hepatic cirrhosis Ascites presence: without ascites Qualified Code(s): K74.60 - Unspecified cirrhosis of liver (8) DVT prophylaxis Current Visit: Yes Status: Acute Assessment and plan: We will hold chemical prophylaxis on account of acute bleed We will start SCDs (9) PAD (peripheral artery disease) Current Visit: No Status: Chronic (10) Chronic toe ulcer Current Visit: Yes Status: Chronic Assessment and plan: Wound care Qualifiers: Laterality: left Non-pressure ulcer stage: limited to breakdown of skin Qualified Code(s): L97.521 - Non-pressure chronic ulcer of other part of left foot limited to breakdown of skin - Subjective Interval history: Patient sitting in chair comfortably. He has no concerns/complaints today. He denies having any weakness, lightheadedness, fever/chills, dysuria, dyspnea, chest pain, or hematochezia. He reiterates having black stools but is also on iron supplementation. - Constitutional Vitals: Temp Pulse Resp BP Pulse Ox 98.4 F 71 18 158/64 98 10/19/17 07:03 10/19/17 07:03 10/19/17 07:03 10/19/17 07:03 10/19/17 07:29 General appearance: Present: cooperative, A&O X 3, no acute distress Exam: General: Cooperative, pleasant, no acute distress, alert and oriented 3, answers questions appropriately HEENT: Normocephalic, atraumatic, neck supple, trachea midline, Conjunctiva pallor, sclera anicteric Respiratory: No accessory muscle usage, clear to auscultation bilaterally, no wheezes/rhonchi/rales appreciated Cardiovascular: Regular rate and rhythm, S1 and S2 present, no murmurs/rubs/ gallops/clicks appreciated, device notes in patient left/superior chest GI/abdominal: Nondistended, nontender, soft, normal bowel sounds, no peritoneal signs Extremities: No calf tenderness, no pedal edema appreciated, warm, lower extremity pulses palpable and symmetrical Neurological: Alert and oriented 3, no facial droop, no focal deficits Skin: Dry, intact, normal color Internal Medicine: Result - Labs CBC & Chem 7: 10/19/17 16:08 10/19/17 02:50 Labs: Short CBC 10/18/17 10/18/17 10/18/17 Range/Units 13:00 20:54 23:06 WBC (4.3-11.1) K/mcL Hgb 8.2 L 7.7 L 7.6 L (12.9-16.9) g/dL Hct 25.1 L 22.9 L 23.0 L (37.5-50.1) % Plt Count (140-400) K/mcL Neutrophils # (1.6-8.9) K/mcL 10/19/17 10/19/17 Range/Units 02:50 06:41 WBC 7.8 (4.3-11.1) K/mcL Hgb 7.9 L 7.4 L (12.9-16.9) g/dL Hct 23.8 L 22.4 L (37.5-50.1) % Plt Count 141 (140-400) K/mcL Neutrophils # 5.9 (1.6-8.9) K/mcL BMP 10/19/17 02:50 Sodium 130 L Potassium 4.6 Chloride 102 Carbon Dioxide 22 L BUN 91 H Creatinine 2.26 H Glucose 119 H Calcium 8.5 L Urine 10/18/17 Range/Units 22:02 Urine Color Yellow (Yellow) Urine Clarity Clear (Clear) Urine pH 6.0 (5.0-8.0) pH Units Ur Specific [place] 1.015 (1.010-1.025) Urine Protein Negative (Neg-Trace) mg/dL Urine Glucose (UA) Normal (Normal) mg/dL - ABG Interpretation ABG results: PT/INR, D-dimer PT 12.2 Seconds (9.4-12.1) H 10/18/17 08:19 - VTE Documentation of Mechanical Device: Intermittent pneumatic compression device Consult Discharge Plan - Plan Referrals: NONE,PCP [Non-Partnered Physician] - <Pierre Tidwell - Last Filed: 10/19/17 17:51> Date of Encounter: 10/19/17 - Constitutional Vitals: Temp Pulse Resp BP Pulse Ox 98.3 F 74 16 141/60 97 10/19/17 15:10 10/19/17 15:10 10/19/17 15:10 10/19/17 15:10 10/19/17 15:10 Internal Medicine: Result - Labs CBC & Chem 7: 10/19/17 16:08 10/19/17 02:50 Labs: Short CBC 10/18/17 10/18/17 10/19/17 Range/Units 20:54 23:06 02:50 WBC 7.8 (4.3-11.1) K/mcL Hgb 7.7 L 7.6 L 7.9 L (12.9-16.9) g/dL Hct 22.9 L 23.0 L 23.8 L (37.5-50.1) % Plt Count 141 (140-400) K/mcL Neutrophils # 5.9 (1.6-8.9) K/mcL 10/19/17 10/19/17 Range/Units 06:41 16:08 WBC (4.3-11.1) K/mcL Hgb 7.4 L 8.6 L (12.9-16.9) g/dL Hct 22.4 L 25.9 L (37.5-50.1) % Plt Count (140-400) K/mcL Neutrophils # (1.6-8.9) K/mcL BMP 10/19/17 02:50 Sodium 130 L Potassium 4.6 Chloride 102 Carbon Dioxide 22 L BUN 91 H Creatinine 2.26 H Glucose 119 H Calcium 8.5 L Liver Function 10/19/17 Range/Units 09:03 Total Bilirubin 1.1 H (0.3-1.0) mg/dL Direct Bilirubin 0.5 H (0.0-0.2) mg/dL AST 31 (13-39) Units/L ALT 19 (7-52) Units/L Alkaline Phosphatase 113 H (34-104) Units/L Albumin 3.4 L (3.5-5.7) g/dL Urine 04/01/18 Range/Units 22:02 Urine Color Yellow (Yellow) Urine Clarity Clear (Clear) Urine pH 6.0 (5.0-8.0) pH Units Ur Specific [place] 1.015 (1.010-1.025) Urine Protein Negative (Neg-Trace) mg/dL Urine Glucose (UA) Normal (Normal) mg/dL - ABG Interpretation ABG results: PT/INR, D-dimer PT 12.2 Seconds (9.4-12.1) H 10/18/17 08:19 - Attending Attestation I performed an independent interview and examine this patient. I agree with the findings, assessment, and plan of Dr. Natarajan, internal medicine resident. I also discussed the case with him in detail. Patient is doing well and hemoglobin remained stable now. Encourage oral intake given his dehydration. At that and to give IV fluids unless absolutely necessary given his cardiomyopathy. All else as outlined above.
[2017-10-19 09:35] LABS: Albumin 3.4 g/dL (3.5-5.7); Albumin/Globulin Ratio 0.9 (1.1-2.2); Bilirubin,Direct 0.5 mg/dL (0.0-0.2); Bilirubin,Indirect 0.6 mg/dL (0.0-1.2); Bilirubin,Total 1.1 mg/dL (0.3-1.0); Globulin 3.7 g/dL (2.4-3.5); Total Protein 7.1 g/dL (6.4-8.9)
[2017-10-19] MEDS ORDERED: 0.9 % Sodium Chloride 250 ML ONE (10:07)
[2017-10-19] MEDS: Loratadine 10 MG TABLET PO SCH (10:24)
[2017-10-19] MEDS: Isosorbide MONOnitrate (24 HR) 30 MG TAB.ER.24H PO SCH (10:25)
[2017-10-19] MEDS: Lactulose Oral Soln 20 GM/30 ML UDC PO SCH ×2 (10:25→22:39)
--- NOTE | 2017-10-19 10:30 | Gastroenterology Consult Note ---
<YepezSupa Tee - Last Filed: 10/19/17 10:26> Date of Encounter: 10/19/17 Time of Encounter: 09:50 - Assessment and plan (1) Iron deficiency anemia Current Visit: No Status: Acute Assessment and plan: On admission Hgb 6.9 and this morning Hgb 7.4. Iron noted at 19 with ferritin of 67. Continue iron supplement. Continue to monitor CBC and transfuse PRBC as needed. Plan for EGD today to r/o esophageal varices, esophagitis, gastritis, duodenitis, PUD, MW tear, or AVM. Keep patient NPO. Qualifiers: Iron deficiency anemia type: other iron deficiency Qualified Code(s): D50.8 - Other iron deficiency anemias (2) Cirrhosis Current Visit: No Status: Chronic Assessment and plan: MELD-Na 23, Child-Kimbrough Class B, DF 8.4. Last paracentesis 09/17/2017 with 3.3 L removed. Hepatitis profile negative 07/26/2016. Complete liver workup (AFP, alpha 1 antitrypsin, LOIDA, ANCA, ceruloplasmin, F-actin, AMA) and RUQ US. Plan for EGD to rule out esophageal varices. Titrate Lactulose for 2-4 BMs daily. Lifestyle Changes: 1. Total abstinence from alcohol including social drinking. 2. No smoking 3. Gradual loss of weight 4. Drink at least 3 cups of coffee due to its antioxidant effects in the liver, it reduces risk of HCC and advance fibrosis 5. If needed, use less than 2 g/day of Tylenol (in divided doses). 6. Vaccination for Hep A, B, Pneumococcus if not already received and yearly influenza vaccination by PCP 7. Avoid NSAIDS as can cause kidney damage 8. Avoid benzodiazepines and other sedatives such as anti-histamines, narcotics etc. as can cause encephalopathy or confusion 9. Take a late carbohydrate meal supplement as it reduces glucose production from protein breakdown and thus improves nutrition. 10. In cirrhosis, statins are safe to use and also improve portal hypertension and decrease risk of HCC. Qualifiers: Hepatic cirrhosis type: unspecified hepatic cirrhosis Ascites presence: without ascites Qualified Code(s): K74.60 - Unspecified cirrhosis of liver (3) Chronic kidney disease (CKD) Current Visit: No Status: Acute Qualifiers: Chronic kidney disease stage: stage 4 (severe) Qualified Code(s): N18.4 - Chronic kidney disease, stage 4 (severe) - Time Spent With Patient Total time spent is greater than 50% in coordination of care (as documented) at patient's floor/unit and/or counseling patient: GI History of Present Illness - Data of Consult Patient: new to practice Consult date: 10/19/17 Requesting Physician: Phillip Camara MD - Consult Narrative Reason for consult: anemia History of present illness: Mr. 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 A nondisplaced right pelvic fracture was noted on imaging, no surgical intervention noted by Orthopedics. He denied fever, chills, chest pain, shortness of breath, abdominal pain, nausea, vomiting, hematochezia. We have been consulted to evaluate his anemia. On admission Hgb 6.9 and this morning Hgb 7.4. Iron noted at 19 with ferritin of 67. Patient is taking an iron supplement and has noted black stools, but denies any tarry stools. CT A/P with colonic diverticulosis, 3.3 cm fusiform abdominal aortic aneurysm, liver was unremarkable. Procedures: None NSAIDs: None Anticoagulation: None Past Med Surg Social Fam HX - Past Medical History Medical history: atrial fibrillation, cirrhosis, CHF, coronary artery disease, hyperlipidemia, hypertension, myocardial infarction, peripheral artery disease, renal disease, valvular heart disease, other Psychiatric history: no psych history - Past Surgical History Surgical History: angioplasty/stent, carotid endarterectomy, coronary bypass ( CABG), pacemaker/AICD, vascular surgery, other, pacemaker - Social History Smoking Status: Never smoker Smokeless Tobacco Status: No Alcohol use: none Drug use: none - Family History Father Living Status: Hx Family Cardiac Disorders: Yes Hx Family Endocrine Disorder: Yes - Gastrointestinal Gastrointestinal: Present: as per HPI - Constitutional Constitutional: as per HPI - EENT Eyes: as per HPI Ears: Present: as per HPI Nose, mouth and throat: Present: as per HPI - Cardiovascular Cardiovascular ROS: Present: as per HPI - Respiratory Respiratory IM: Present: as per HPI - Genitourinary Genitourinary: Absent: change in color, Urinary frequency - Neurological ROS Neurological GI: Present: as per HPI - Hematologic/Lymphatic Hematologic/Lymphatic pediatric: Present: as per HPI - Musculoskeletal Musculoskeletal ROS GI: Present: as per HPI - Integumentary Integumentary GI: Present: as per HPI - Psychiatric ROS Psychiatric GI: Present: as per HPI - Endocrine Endocrine IM: Present: as per HPI - Constitutional Vitals: Temp Pulse Resp BP Pulse Ox 97.8 F 76 16 161/72 98 10/19/17 10:15 10/19/17 10:15 10/19/17 10:15 10/19/17 10:15 10/19/17 07:29 General appearance: Present: cooperative, A&O X 3, no acute distress, answers questions appropriately Exam: Hard of hearing. - Head Head exam: Present: atraumatic, normocephalic - Eye Eye exam: Present: normal appearance, sclera anicteric - ENT ENT exam: Present: mucous membranes dry - Neck Neck exam general surgery: Present: normal inspection, trachea midline - Respiratory Respiratory exam: Present: CTAB. Absent: rales, rhonchi - Cardiovascular Cardiovascular exam: Present: RRR, +S1, +S2 - GI/Abdominal GI/Abdominal exam: Present: soft, no peritoneal signs. Absent: distended, firm , guarding, tenderness - Rectal Rectal exam: Present: deferred - Extremities Exam Extremities exam: Present: warm - Neurological Exam Neurological exam: Present: no focal deficits - Psychiatric Psychiatric exam: Present: normal affect, normal mood - Skin Skin exam: Present: dry, intact, normal color, warm Results - Labs CBC & Chem 7: 10/19/17 06:41 10/19/17 02:50 Labs: Last Result Calcium 8.5 mg/dL (8.6-10.3) L 10/19/17 02:50 Iron 19 mcg/dL (65-175) L 10/18/17 09:32 % Saturation 4 % (20-55) L 10/18/17 09:32 Transferrin 317 mg/dL (203-362) 10/18/17 09:32 Ferritin 67 ng/ml (20-250) 10/18/17 09:32 Vitamin B12 970 pg/mL (250-1100) 10/18/17 09:32 Folate > 22.3 ng/mL (3.0-16.0) H 10/18/17 09:32 Entire Visit Hgb 7.4 g/dL (12.9-16.9) L 10/19/17 06:41 Hct 22.4 % (37.5-50.1) L 10/19/17 06:41 PT 12.2 Seconds (9.4-12.1) H 10/18/17 08:19 Ferritin 67 ng/ml (20-250) 10/18/17 09:32 Total Bilirubin 1.1 mg/dL (0.3-1.0) H 10/19/17 09:03 AST 31 Units/L (13-39) 10/19/17 09:03 ALT 19 Units/L (7-52) 10/19/17 09:03 Ammonia 69 mcmol/L (16-53) H 10/18/17 09:32 Folate > 22.3 ng/mL (3.0-16.0) H 10/18/17 09:32 - ABG ABG results: PT/INR, D-dimer PT 12.2 Seconds (9.4-12.1) H 10/18/17 08:19 Consult Discharge Plan - Plan Referrals: NONE,PCP [Non-Partnered Physician] - <Nba Pacheco - Last Filed: 10/19/17 13:28> Date of Encounter: 10/19/17 - Time Spent With Patient Total time spent is greater than 50% in coordination of care (as documented) at patient's floor/unit and/or counseling patient: GI History of Present Illness - Data of Consult Requesting Physician: Phillip Camara MD - Consult Narrative History of present illness: Mr. King is a 87 year old male - Constitutional Vitals: Temp Pulse Resp BP Pulse Ox 98.0 F 82 16 167/78 98 10/19/17 11:28 10/19/17 11:28 10/19/17 11:28 10/19/17 11:28 10/19/17 11:28 Results - Labs CBC & Chem 7: 10/19/17 06:41 10/19/17 02:50 Labs: Last Result Calcium 8.5 mg/dL (8.6-10.3) L 10/19/17 02:50 Iron 19 mcg/dL (65-175) L 10/18/17 09:32 % Saturation 4 % (20-55) L 10/18/17 09:32 Transferrin 317 mg/dL (203-362) 10/18/17 09:32 Ferritin 67 ng/ml (20-250) 10/18/17 09:32 Vitamin B12 970 pg/mL (250-1100) 10/18/17 09:32 Folate > 22.3 ng/mL (3.0-16.0) H 10/18/17 09:32 Entire Visit Hgb 7.4 g/dL (12.9-16.9) L 10/19/17 06:41 Hct 22.4 % (37.5-50.1) L 10/19/17 06:41 PT 12.2 Seconds (9.4-12.1) H 10/18/17 08:19 Ferritin 67 ng/ml (20-250) 10/18/17 09:32 Total Bilirubin 1.1 mg/dL (0.3-1.0) H 10/19/17 09:03 AST 31 Units/L (13-39) 10/19/17 09:03 ALT 19 Units/L (7-52) 10/19/17 09:03 Ammonia 69 mcmol/L (16-53) H 10/18/17 09:32 Folate > 22.3 ng/mL (3.0-16.0) H 10/18/17 09:32 - ABG ABG results: PT/INR, D-dimer PT 12.2 Seconds (9.4-12.1) H 10/18/17 08:19 - Attending Attestation Agree with EGD. Unfortunately patient was fed this morning. Plan EGD in am tomorrow I examined this patient and my medical decision-making was reviewed with the Resident Physician. I agree with the documented findings, disposition and treatment plan as described except to the extent set forth below.
[2017-10-19] MEDS: OXYCODONE Oral CONC 10 MG/0.5 ML ORAL.SYG SL PRN (10:35)
--- NOTE | 2017-10-19 14:44 | Electrocardiograph Report ---
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
[2017-10-19 16:34] LABS: Hematocrit 25.9 % (37.5-50.1); Hemoglobin 8.6 g/dL (12.9-16.9)
[2017-10-19] MEDS: Gabapentin 300 MG CAPSULE PO SCH (22:39)
[2017-10-19] MEDS: Latanoprost 2.5 ML BOTTLE BOTH EYES SCH (22:42)
[2017-10-20] MEDS: Lactulose Oral Soln 20 GM/30 ML UDC PO SCH ×3 (05:19→23:59)
[2017-10-20 05:38] LABS: Basophils % 0.1 %; Eosinophils # 0.2 K/mcL (0.0-0.6); Eosinophils % 2.6 %; Hematocrit 25.8 % (37.5-50.1); Hemoglobin 8.5 g/dL (12.9-16.9); Immature Granulocytes % 0.7 % (0-4); Lymphocytes # 0.8 K/mcL (0.6-4.6); Lymphocytes % 10.1 %; Mean Corpuscular HGB Conc 32.9 g/dL (31.6-35.5); Mean Corpuscular Hemoglobin 32.2 pg (28.0-33.3); Mean Corpuscular Volume 97.7 fL (83.0-100.0); Mean Platelet Volume 10.7 fL (9.4-12.4); Monocytes # 0.7 K/mcL (0.0-1.3); Monocytes % 9.7 %; Neutrophils # 5.9 K/mcL (1.6-8.9); Platelet Count 147 K/mcL (140-400); Red Blood Count 2.64 M/mcL (4.19-5.50); Red Cell Distribution Width 17.2 % (11.5-14.5); Segmented Neutrophils % 76.8 %
[2017-10-20 05:52] LABS: Calcium 8.7 mg/dL (8.6-10.3); Potassium 4.5 mEq/L (3.5-5.1)
[2017-10-20] MEDS: Loratadine 10 MG TABLET PO SCH (08:44)
[2017-10-20] MEDS: Isosorbide MONOnitrate (24 HR) 30 MG TAB.ER.24H PO SCH (08:44)
[2017-10-20] MEDS ORDERED: *HR* Propofol 200 MG/20 ML VIAL IVP ONE (12:23)
[2017-10-20] MEDS ORDERED: Lidocaine -MPF 2% 2 ML VIAL ONE (12:23)
--- NOTE | 2017-10-20 13:19 | Anesthesia Evaluation PreOp ---
Date of Encounter: 10/20/17 Time of Encounter: 13:10 - Past History Planned Operation: EGD Cardiac History: CHF, HTN, Hyperlipidemia, Arrhythmia (Paroxysmal AFib NOT anti- coagulated. Rate controlled on Metoprolol), Cardiac Surgery (s/p CABG), Other ( Acute on Chronic anemia this hospitalization w/ Guiac + stool. PVDz/AAA) Pulmonary History: Denies Any Significant HX COLLEGE ATHLETE History: Other (Glaucoma. PolyNeuropathy.) Other Medical History: Hepatic (Cirrhosis), Renal (stage 4 CKD. Renal Artery Stenosis s/p stenting. BLE vascular stents 01/2012 & 02/2012) Anesthesia History: No Prior Anesthetic Complications, Past Anesthesia (B-CEA, BLE perc revascularization, R-fem-Pop Bypass 07/2005, Pacemaker placements. Cataracts,) Alcohol Use: none Drug use: none Medications and Allergies Atorvastatin [Lipitor] 40 mg PO HS 06/08/15 [History] Gabapentin [Neurontin] 600 mg PO HS 06/08/15 [History] Garlic 1,000 mg PO DAILY 06/08/15 [History] Metoprolol [Lopressor] 50 mg PO BID 06/08/15 [History] Multivitamin [Flintstones] 1 tab PO DAILY 06/08/15 [History] [place]-3S/Dha/Epa/Fish Oil [Fish Oil 1,200 mg Softgel] 1 cap PO DAILY 06/08/15 [ History] Montelukast [Singulair] 10 mg PO HS 11/05/15 [History] Latanoprost 1 drop BOTH EYES HS 11/28/15 [History] Tamsulosin [Flomax] 0.4 mg PO BID 01/27/17 [History] Ferrous Sulfate 325 mg PO DAILY 04/08/17 [History] Furosemide [Lasix] 40 mg PO DAILY 04/08/17 [History] Loratadine [Claritin] 10 mg PO DAILY 04/08/17 [History] Spironolactone [Aldactone] 50 mg PO BID 04/08/17 [History] Isosorbide MONOnitrate (24 HR) [Imdur] 30 mg PO DAILY 06/20/17 [History] metOLazone [Zaroxolyn] 2.5 mg PO AD PRN 06/20/17 [History] 3 Allergy/AdvReac Type Severity Reaction Status Date / Time clopidogrel [From Plavix] Allergy Itching Verified 12/03/16 19:46 Cortisone Allergy Joint Pain Verified 12/03/16 19:46 - Meds/Allergy Pre-op Review Medications Reviewed: Yes Allergies Reviewed: Yes Beta Blockers on Current Med List: No If Beta Blockers taken, Date/Time (Last Dose taken): Metoprolol not noted on current MAR Anesthesia Results - Labs 10/20/17 04:54 10/20/17 04:54 Laboratory Tests 10/18/17 10/20/17 10/20/17 08:19 04:54 04:54 WBC 7.7 Hgb 8.5 L Hct 25.8 L Plt Count 147 PT 12.2 H INR 1.1 APTT 26.0 Sodium 131 L Potassium 4.5 Chloride 103 Carbon Dioxide 23 BUN 65 H Creatinine 1.79 H Est GFR (Non-Af Amer) 36 L Glucose 103 POC Glucose 10/20/17 12:23 WBC Hgb Hct Plt Count PT INR APTT Sodium Potassium Chloride Carbon Dioxide BUN Creatinine Est GFR (Non-Af Amer) Glucose POC Glucose 106 H - Imaging EKG: image reviewed (61bpm ELECTRONIC ATRIAL PACEMAKER ELECTRONIC VENTRICULAR PACEMAKER Electronically Signed On 10-19-2017 14:42:53 EDT by Tom Zuniga) Additional studies: ECHO 07/2016 - Impressions: Paced rhythm with occasional PVCs. LV systolic function is moderately reduced, EF 35%. Unable to fully evaluate wall motion due to PVCs. RV is moderate to severely dilated with mild reduction in function. Similar in appearance to most recent echo. Moderate to severe TR by color flow. Moderate mitral regurgitation. Mild aortic regurgitation. Suboptimal TR gradient to estimate pulmonary hypertension. Left Ventricular Wall Motion: Rest Echo Findings The apex, apical inferior, mid inferior, basal inferior, apical anterior, mid anterior, basal anterior, apical septal, mid inferior septal, basal inferior septal, apical lateral, mid anterior lateral, basal anterior lateral, mid anterior septal, mid inferior lateral, basal anterior septal and basal inferior lateral eckert were hypokinetic. Laboratory Results WBC 7.7 K/mcL (4.3-11.1) 10/20/17 04:54 RBC 2.64 M/mcL (4.19-5.50) L 10/20/17 04:54 Hgb 8.5 g/dL (12.9-16.9) L 10/20/17 04:54 Hct 25.8 % (37.5-50.1) L 10/20/17 04:54 MCV 97.7 fL (83.0-100.0) 10/20/17 04:54 MCH 32.2 pg (28.0-33.3) 10/20/17 04:54 MCHC 32.9 g/dL (31.6-35.5) 10/20/17 04:54 RDW 17.2 % (11.5-14.5) H 10/20/17 04:54 Plt Count 147 K/mcL (140-400) 10/20/17 04:54 MPV 10.7 fL (9.4-12.4) 10/20/17 04:54 Immature Gran % 0.7 % (0-4) 10/20/17 04:54 Seg Neutrophils % 76.8 % 10/20/17 04:54 Lymphocytes % 10.1 % 10/20/17 04:54 Monocytes % 9.7 % 10/20/17 04:54 Eosinophils % 2.6 % 10/20/17 04:54 Basophils % 0.1 % 10/20/17 04:54 Neutrophils # 5.9 K/mcL (1.6-8.9) 10/20/17 04:54 Lymphocytes # 0.8 K/mcL (0.6-4.6) 10/20/17 04:54 Monocytes # 0.7 K/mcL (0.0-1.3) 10/20/17 04:54 Eosinophils # 0.2 K/mcL (0.0-0.6) 10/20/17 04:54 Basophils # 0.0 K/mcL (0.0-0.2) 10/20/17 04:54 Immature Plt Fraction 2.9 % (1.1-6.1) 10/17/17 21:45 PT 12.2 Seconds (9.4-12.1) H 10/18/17 08:19 INR 1.1 10/18/17 08:19 APTT 26.0 Seconds (26.0-36.0) 10/18/17 08:19 Sodium 131 mEq/L (136-145) L 10/20/17 04:54 Potassium 4.5 mEq/L (3.5-5.1) 10/20/17 04:54 Chloride 103 mEq/L (98-107) 10/20/17 04:54 Carbon Dioxide 23 mEq/L (23-29) 10/20/17 04:54 BUN 65 mg/dL (8-23) H 10/20/17 04:54 Creatinine 1.79 mg/dL (0.70-1.30) H 10/20/17 04:54 Est GFR ( Amer) 44 (> 60) L 10/20/17 04:54 Est GFR (Non-Af Amer) 36 (> 60) L 10/20/17 04:54 BUN/Creatinine Ratio 36 (6-26) H 10/20/17 04:54 Glucose 103 mg/dL (70-105) 10/20/17 04:54 POC Glucose 106 mg/dL (68-89) H 10/20/17 12:23 Serum Osmolality 317 mOsm/kg (280-300) H 10/18/17 08:19 Calculated Osmolality 291 (280-300) 10/20/17 04:54 Calcium 8.7 mg/dL (8.6-10.3) 10/20/17 04:54 Phosphorus 4.3 mg/dL (2.7-4.5) 10/18/17 08:19 Magnesium 2.5 mg/dL (1.6-2.6) 10/18/17 08:19 Iron 19 mcg/dL (65-175) L 10/18/17 09:32 % Saturation 4 % (20-55) L 10/18/17 09:32 Transferrin 317 mg/dL (203-362) 10/18/17 09:32 Ferritin 67 ng/ml (20-250) 10/18/17 09:32 Total Bilirubin 1.1 mg/dL (0.3-1.0) H 10/19/17 09:03 Direct Bilirubin 0.5 mg/dL (0.0-0.2) H 10/19/17 09:03 Indirect Bilirubin 0.6 mg/dL (0.0-1.2) 10/19/17 09:03 AST 31 Units/L (13-39) 10/19/17 09:03 ALT 19 Units/L (7-52) 10/19/17 09:03 Alkaline Phosphatase 113 Units/L (34-104) H 10/19/17 09:03 Ammonia 69 mcmol/L (16-53) H 10/18/17 09:32 Serum Total Protein 7.1 g/dL (6.4-8.9) 10/19/17 09:03 Albumin 3.4 g/dL (3.5-5.7) L 10/19/17 09:03 Globulin 3.7 g/dL (2.4-3.5) H 10/19/17 09:03 Albumin/Globulin Ratio 0.9 (1.1-2.2) L 10/19/17 09:03 Vitamin B12 970 pg/mL (250-1100) 10/18/17 09:32 Folate > 22.3 ng/mL (3.0-16.0) H 10/18/17 09:32 Urine Color Yellow (Yellow) 10/18/17 22:02 Urine Clarity Clear (Clear) 10/18/17 22:02 Urine pH 6.0 pH Units (5.0-8.0) 10/18/17 22:02 Ur Specific [place] 1.015 (1.010-1.025) 10/18/17 22:02 Urine Protein Negative mg/dL (Neg-Trace) 10/18/17 22:02 Urine Glucose (UA) Normal mg/dL (Normal) 10/18/17 22:02 Urine Ketones Negative mg/dL (Negative) 10/18/17 22:02 Urine Blood Negative (Negative) 10/18/17 22:02 Urine Nitrite Negative (Negative) 10/18/17 22:02 Urine Bilirubin Negative (Negative) 10/18/17 22:02 Urine Urobilinogen Normal mg/dL (Normal) 10/18/17 22:02 Ur Leukocyte Esterase Negative (Negative) 10/18/17 22:02 Ur Culture Indicated? NO (NO) 10/18/17 22:02 Urine Osmolality 424 mOsm/kg (300-1090) 10/18/17 22:02 Blood Type O POSITIVE 10/17/17 22:56 Antibody Screen NEGATIVE 10/17/17 22:56 Crossmatch See Detail 10/17/17 22:56 Impressions Abdomen/Pelvis CT 10/17/17 16:36 IMPRESSION: 1. Subacute to chronic appearing nondisplaced right posterior 12th rib fracture new from 04/08/2017. 2. Acute nondisplaced right inferior pubic ramus fracture. 3. Mildly enlarged main pulmonary artery as can be seen with pulmonary arterial hypertension. Status post CABG. 4. Cholelithiasis. 5. Small volume of ascites significantly decreased from 04/08/2017. 6. 3.3 cm fusiform abdominal aortic aneurysm. See recommendations below. Managing Abdominal Aortic Aneurysms 3.0-3.4 cm: Every 3 years. *For abdominal aortas with maximum diameter of 2.6-2.9 cm meeting criteria for AAA (>50% of proximal normal segment). Reference: J Vasc Surg. 2008;50(4 Suppl):S2-49 D/ / Sanjiv Lopez MD / Sanjiv Lopez MD Interpreting Provider: Sanjiv Lopez MD Chest CT 10/17/17 16:36 IMPRESSION: 1. Subacute to chronic appearing nondisplaced right posterior 12th rib fracture new from 04/08/2017. 2. Acute nondisplaced right inferior pubic ramus fracture. 3. Mildly enlarged main pulmonary artery as can be seen with pulmonary arterial hypertension. Status post CABG. 4. Cholelithiasis. 5. Small volume of ascites significantly decreased from 04/08/2017. 6. 3.3 cm fusiform abdominal aortic aneurysm. See recommendations below. Managing Abdominal Aortic Aneurysms 3.0-3.4 cm: Every 3 years. *For abdominal aortas with maximum diameter of 2.6-2.9 cm meeting criteria for AAA (>50% of proximal normal segment). Reference: J Vasc Surg. 2008;50(4 Suppl):S2-49 D/ / Sanjiv Lopez MD / Sanjiv Lopez MD Interpreting Provider: Sanjiv Lopez MD Chest X-Ray 10/17/17 16:36 IMPRESSION: 1. No acute process identified. D/ / Migue Hairston MD / Migue Hairston MD Interpreting Provider: Migue Hairston MD Elbow X-Ray 10/17/17 16:36 IMPRESSION: 1. No acute osseous abnormality of the right elbow or right shoulder identified. 2. Severe osteopenia. 3. Mild ulnar trochlear and moderate radiocapitellar osteoarthritis. 4. Mild glenohumeral and acromioclavicular osteoarthritis. 5. Atherosclerotic disease. D/ / Migue Hairston MD / Migue Hairston MD Interpreting Provider: Migue Hairston MD Head CT 10/17/17 16:36 IMPRESSION: No acute intracranial abnormality. D/ / Pierre Saldana / Pierre Saldana Interpreting Provider: Pierre Saldana Lumbar Spine CT 10/17/17 16:36 IMPRESSION: 1. No acute fracture of the thoracic or lumbar spine. 2. Re- demonstration of chronic compression deformities of the T8 and T10 vertebral body similar to prior CT dated July 25, 2016. 3. Osteopenia. 4. Multilevel mild spondylosis of the thoracolumbar spine. 5. Moderate to severe facet arthrosis at L4-5 and L5-S1. 6. Severe atherosclerotic disease. 7. Please see dedicated CT chest, abdomen, and pelvis dictation same day for complete intrathoracic and intra-abdominal findings. D/ / Migue Hairston MD / Migue Hairston MD Interpreting Provider: Migue Hairston MD Pelvis X-Ray 10/17/17 16:36 IMPRESSION: Linear lucency in the right inferior pubic ramus. Symphysis pubis interval is normal. Femoral heads align normally with the acetabula. There are moderate degenerate changes in the hips bilaterally. RECOMMENDATION: 1. Suspected traumatic nondisplaced right inferior pubic ramus fracture. Recommend CT of the pelvis for further evaluation. The left inferior pubic ramus is not well seen due to obliquity. 2. Moderate bilateral hip degenerative changes. 3. Osteopenia. 4. Atherosclerosis. D/ / Ariel Iniguez MD / Ariel Iniguez MD Interpreting Provider: Ariel Iniguez MD Shoulder X-Ray 10/17/17 16:36 IMPRESSION: 1. No acute osseous abnormality of the right elbow or right shoulder identified. 2. Severe osteopenia. 3. Mild ulnar trochlear and moderate radiocapitellar osteoarthritis. 4. Mild glenohumeral and acromioclavicular osteoarthritis. 5. Atherosclerotic disease. D/ / Migue Hairston MD / Migue Hairston MD Interpreting Provider: Migue Hairston MD Thoracic Spine CT 10/17/17 16:36 IMPRESSION: 1. No acute fracture of the thoracic or lumbar spine. 2. Re- demonstration of chronic compression deformities of the T8 and T10 vertebral body similar to prior CT dated July 25, 2016. 3. Osteopenia. 4. Multilevel mild spondylosis of the thoracolumbar spine. 5. Moderate to severe facet arthrosis at L4-5 and L5-S1. 6. Severe atherosclerotic disease. 7. Please see dedicated CT chest, abdomen, and pelvis dictation same day for complete intrathoracic and intra-abdominal findings. D/ / Migue Hairston MD / Migue Hairston MD Interpreting Provider: Migue Hairtson MD Cervical Spine CT 10/17/17 16:37 IMPRESSION: No acute abnormality of the cervical spine. D/ / Sanjiv Lopez MD / Sanjiv Lopez MD Interpreting Provider: Sanjiv Lopez MD Liver Ultrasound 10/20/17 07:00 IMPRESSION: Mildly cirrhotic appearance to the liver without focal liver lesion or intrahepatic biliary duct dilatation. Mild ascites to the right upper quadrant, similar to mildly worsened from recent CT exam. Cholelithiasis without definite evidence for acute cholecystitis. Mild nonspecific gallbladder wall thickening. If there is clinical concern for gallbladder pathology consider nuclear medicine study with gallbladder ejection fraction. D/ / 10/20/2017 08:35:30 Paulie Alcaraz MD / [place] Interpreting Provider: Paulie Alcaraz MD Anesthesia Exam O2 Sat Vital Signs Temp Pulse Resp BP Pulse Ox 10/20/17 13:06 97.6 F 83 16 159/77 96 10/20/17 12:27 97.9 F 80 16 182/81 95 10/20/17 02:54 98.9 F 83 16 138/67 95 10/19/17 22:39 98.7 F 76 16 143/65 97 10/19/17 18:44 98.1 F 74 16 146/66 96 10/19/17 15:10 98.3 F 74 16 141/60 97 10/19/17 13:55 98.1 F 77 18 152/61 95 Intake and Output 10/19/17 10/20/17 10/20/17 23:59 07:59 15:59 Intake Total 0 / 0 Output Total 575 / 575 300 / 300 Balance -575 / -575 -300 / -300 Intake: Oral 0 / 0 Output: Urine 575 / 575 300 / 300 Other: Meal NPO # Urine Diapers 1 1 Blood Glucose* 156 106 Vital Signs Height: 5'9" Weight: 152# BMI = 22.5 NPO (# of Hours): MNOc - HEENT Pupil (Motor): Pupils equal, EOMI Mallampati: III Teeth: Edentulous Oral Opening: Greater than 3 - COLLEGE ATHLETE LOC: Oriented COLLEGE ATHLETE Motor: Normal RUE, Normal LUE, Normal RLE, Normal LLE, Normal Face (B- hearing aids, Pt Very [place]) COLLEGE ATHLETE Sensory: Normal: RUE, LUE, RLE, LLE, Face - Cardiac Rhythm: Regular Murmur: None - Pulmonary Breath Sounds: bilateral Clear Respiratory Effort: Symmetrical Anesthesia Assess/Plan ASA Score: 4 (Stage IV CKD, CHF, PAD/PVDz, Cirrhosis, Paroxysmal AFib) Anes Supervising Prov Stmt: Pt seen/evaluated, R&B Discussed, questions answered and consent obtained. Juaquin Devine MD
--- NOTE | 2017-10-20 13:47 | Anesthesia Evaluation Post Op ---
Date of Encounter: 10/20/17 Time of Encounter: 13:46 - Vital Signs Vital Signs: 147/92, HR 69, SpO2 99%, RR 16 - Lungs Lungs: Clear Ascult./Percussion - Airway Airway: Non-obstructed - Cardiovascular Regular Rate - Mental Status Mental Status: Alert & Oriented, Answers Appropriately - Pain Pain Scale: 0 Pain Scale used: Numeric (1 - 10) - Nausea Vomiting Nausea Vomiting: Not Present - Hydration Hydration: NPO, Has not voided - Discharge PostOp Status: Transfer Patient to floor
[2017-10-20 13:48] LABS: AFP Tumor Marker Non-Pregnant 1 ng/mL (0-9)
--- NOTE | 2017-10-20 16:14 | Internal Med Progress Note ---
<Kevyn Langley - Last Filed: 10/20/17 16:29> Date of Encounter: 10/20/17 Time of Encounter: 16:12 - Assessment and plan (1) Duodenal bulb ulcer Current Visit: Yes Status: Acute Assessment and plan: GI the upper endoscopy today and found duodenal bulb ulcer. Recommended administration of Carafate. (2) Anemia Current Visit: Yes Status: Acute Assessment and plan: Hemoglobin today was 8.5. This is stable from her was yesterday. We will continue to monitor. Carafate was added for duodenal bulb ulcer. Qualifiers: Anemia type: other cause Other causes of anemia: acute posthemorrhagic Qualified Code(s): D62 - Acute posthemorrhagic anemia (3) Dehydration Current Visit: Yes Status: Acute Assessment and plan: Improving. Creatinine has improved substantially to 1.79. (4) Pubic ramus fracture Current Visit: Yes Status: Acute Assessment and plan: Care at this time. Orthopedic surgery will follow outpatient. This patient scheduled for placement in fdc facility. Will await to learn where he is placed. Qualifiers: Encounter type: initial encounter Fracture type: closed Laterality: right Qualified Code(s): S32.591A - Other specified fracture of right pubis, initial encounter for closed fracture (5) Atrial fibrillation Current Visit: Yes Status: Chronic Assessment and plan: Will restart home medications Qualifiers: Atrial fibrillation type: paroxysmal Qualified Code(s): I48.0 - Paroxysmal atrial fibrillation (6) Heart failure with reduced ejection fraction Current Visit: Yes Status: Chronic Assessment and plan: Stable and not worsening. We will restart home medications. Qualifiers: Heart failure chronicity: chronic Qualified Code(s): I50.22 - Chronic systolic (congestive) heart failure (7) Chronic kidney disease (CKD) Current Visit: No Status: Acute Assessment and plan: Creatinine has improved to 1.79. Qualifiers: Chronic kidney disease stage: stage 4 (severe) Qualified Code(s): N18.4 - Chronic kidney disease, stage 4 (severe) (8) Cirrhosis Current Visit: No Status: Chronic Assessment and plan: Patient's abdomen is soft and nondistended. There was question from caregiver as far as performance of a paracentesis. This is not indicated at this time clinically. I will reassess tomorrow. Qualifiers: Hepatic cirrhosis type: unspecified hepatic cirrhosis Ascites presence: without ascites Qualified Code(s): K74.60 - Unspecified cirrhosis of liver (9) PAD (peripheral artery disease) Current Visit: No Status: Chronic (10) DVT prophylaxis Current Visit: No Status: Acute Assessment and plan: Patient has SCDs. - Subjective Interval history: Patient states that he has no complaints at this time. Upper endoscopy was performed and revealed duodenal ulcers. GI recommended addition of Carafate. Hemoglobin continues to be stable at 8.5. Awaiting placement in fdc facility - Constitutional Vitals: Temp Pulse Resp BP Pulse Ox 97.6 F 83 16 159/77 96 10/20/17 13:06 10/20/17 13:06 10/20/17 13:06 10/20/17 13:06 10/20/17 13:06 General appearance: Present: cooperative, A&O X 3, no acute distress - Head Head exam: Present: atraumatic, normal inspection - Neck Neck exam general surgery: Present: supple, trachea midline. Absent: tenderness - Respiratory Respiratory exam: Present: CTAB. Absent: decreased breath sounds, rales, respiratory distress, rhonchi - Cardiovascular Cardiovascular exam: Present: +S1, +S2. Absent: JVD, tachycardia - GI/Abdominal Additional comments: Abdomen soft, nondistended, no fluid wave. No rebound, guarding, tenderness. No peritoneal signs - Neurological Exam Neurological exam: Present: CN II-XII intact, oriented X3 Internal Medicine: Result - Labs CBC & Chem 7: 10/20/17 04:54 10/20/17 04:54 Labs: Short CBC 10/19/17 10/20/17 Range/Units 16:08 04:54 WBC 7.7 (4.3-11.1) K/mcL Hgb 8.6 L 8.5 L (12.9-16.9) g/dL Hct 25.9 L 25.8 L (37.5-50.1) % Plt Count 147 (140-400) K/mcL Neutrophils # 5.9 (1.6-8.9) K/mcL BMP 10/20/17 04:54 Sodium 131 L Potassium 4.5 Chloride 103 Carbon Dioxide 23 BUN 65 H Creatinine 1.79 H Glucose 103 Calcium 8.7 - ABG Interpretation ABG results: PT/INR, D-dimer PT 12.2 Seconds (9.4-12.1) H 10/18/17 08:19 - Impressions Impressions Liver Ultrasound 10/20/17 07:00 IMPRESSION: Mildly cirrhotic appearance to the liver without focal liver lesion or intrahepatic biliary duct dilatation. Mild ascites to the right upper quadrant, similar to mildly worsened from recent CT exam. Cholelithiasis without definite evidence for acute cholecystitis. Mild nonspecific gallbladder wall thickening. If there is clinical concern for gallbladder pathology consider nuclear medicine study with gallbladder ejection fraction. D/ / 10/20/2017 08:35:30 Paulie Alcaraz MD / [place] Interpreting Provider: Paulie Alcaraz MD - VTE Documentation of Mechanical Device: Intermittent pneumatic compression device Consult Discharge Plan - Plan Referrals: NONE,PCP [Non-Partnered Physician] - <Pierre Tidwell - Last Filed: 10/20/17 16:40> Date of Encounter: 10/20/17 - Constitutional Vitals: Temp Pulse Resp BP Pulse Ox 97.6 F 83 16 159/77 96 10/20/17 13:06 10/20/17 13:06 10/20/17 13:06 10/20/17 13:06 10/20/17 13:06 Internal Medicine: Result - Labs CBC & Chem 7: 10/20/17 04:54 10/20/17 04:54 Labs: Short CBC 10/20/17 Range/Units 04:54 WBC 7.7 (4.3-11.1) K/mcL Hgb 8.5 L (12.9-16.9) g/dL Hct 25.8 L (37.5-50.1) % Plt Count 147 (140-400) K/mcL Neutrophils # 5.9 (1.6-8.9) K/mcL BMP 10/20/17 04:54 Sodium 131 L Potassium 4.5 Chloride 103 Carbon Dioxide 23 BUN 65 H Creatinine 1.79 H Glucose 103 Calcium 8.7 - ABG Interpretation ABG results: PT/INR, D-dimer PT 12.2 Seconds (9.4-12.1) H 10/18/17 08:19 - Impressions Impressions Liver Ultrasound 04/03/18 07:00 IMPRESSION: Mildly cirrhotic appearance to the liver without focal liver lesion or intrahepatic biliary duct dilatation. Mild ascites to the right upper quadrant, similar to mildly worsened from recent CT exam. Cholelithiasis without definite evidence for acute cholecystitis. Mild nonspecific gallbladder wall thickening. If there is clinical concern for gallbladder pathology consider nuclear medicine study with gallbladder ejection fraction. D/ / 10/20/2017 08:35:30 Paulie Alcaraz MD / [place] Interpreting Provider: Paulie Alcaraz MD - Attending Attestation I performed an independent intravenous exam this patient. I agree with the findings, assessment, and plan of Dr. Rodriguez, internal medicine resident. EGD shows duodenal ulcer for which he is being treated with Carafate. Patient is awaiting placement into a fdc facility due to impaired mobility related to his inoperable pubic ramus fracture. Patient otherwise is stable for transfer when this can be arranged. All else as per note. Hemoglobin remained stable. Renal function has improved.
[2017-10-20] MEDS ORDERED: metOLazone 2.5 MG TABLET PO PRN (16:35)
[2017-10-20] MEDS: OXYCODONE Oral CONC 10 MG/0.5 ML ORAL.SYG SL PRN (23:51)
[2017-10-20] MEDS: Gabapentin 300 MG CAPSULE PO SCH (23:51)
[2017-10-20] MEDS: Latanoprost 2.5 ML BOTTLE BOTH EYES SCH (23:59)
[2017-10-21 02:15] LABS: Basophils % 0.1 %; Eosinophils # 0.2 K/mcL (0.0-0.6); Eosinophils % 2.5 %; Hematocrit 25.5 % (37.5-50.1); Hemoglobin 8.5 g/dL (12.9-16.9); Immature Granulocytes % 0.5 % (0-4); Lymphocytes # 0.6 K/mcL (0.6-4.6); Lymphocytes % 7.2 %; Mean Corpuscular HGB Conc 33.3 g/dL (31.6-35.5); Mean Corpuscular Hemoglobin 32.7 pg (28.0-33.3); Mean Corpuscular Volume 98.1 fL (83.0-100.0); Mean Platelet Volume 10.5 fL (9.4-12.4); Monocytes # 0.8 K/mcL (0.0-1.3); Monocytes % 9.4 %; Neutrophils # 6.4 K/mcL (1.6-8.9); Platelet Count 163 K/mcL (140-400); Red Cell Distribution Width 16.7 % (11.5-14.5); Segmented Neutrophils % 80.3 %
[2017-10-21 02:37] LABS: Calcium 8.6 mg/dL (8.6-10.3); Potassium 4.5 mEq/L (3.5-5.1)
[2017-10-21] MEDS: Lactulose Oral Soln 20 GM/30 ML UDC PO SCH (07:55)
[2017-10-21] MEDS: Isosorbide MONOnitrate (24 HR) 30 MG TAB.ER.24H PO SCH (07:56)
[2017-10-21] MEDS: Loratadine 10 MG TABLET PO SCH (07:56)
[2017-10-21] MEDS ORDERED: (Omega-3s/Dha/Epa/Fish Oil [Fish Oil 1,200 Mg Softgel PO SCH (09:00)
[2017-10-21] MEDS ORDERED: Furosemide 20 MG TABLET PO SCH (09:00)
[2017-10-21] MEDS ORDERED: Multivit/Ca/Min/Fe/FA 1 TAB TABLET PO SCH (09:00)
[2017-10-21 10:40] VITALS: BP 117/64
--- NOTE | 2017-10-21 10:42 | Discharge Summary ---
<Lesly Langleyd - Last Filed: 10/21/17 15:24> - NOTES TO OUTPATIENT PROVIDER Notes to Outpatient Provider: Collect repeat sodium in three days. If low, consider salt replacement. Orders not resulted at time of discharge: Pending orders 10/19/17 09:03 AFP Tumor Marker Non- Routine LOIDA IgG FLAVIA rflx IFA Routine F-Actin IgG Reflex Sm Muscle Routine MPO/PR3 (ANCA) Antibodies Routine Mitochondrial M2 Antibody, IgG Routine Date of Encounter: 10/21/17 Time of Encounter: 10:37 - Discharge Diagnosis (1) Duodenal bulb ulcer Priority: Primary Status: Acute (2) Anemia Priority: Primary Status: Acute Qualifiers: Anemia type: other cause Other causes of anemia: acute posthemorrhagic Qualified Code(s): D62 - Acute posthemorrhagic anemia (3) Dehydration Priority: Primary Status: Acute (4) Pubic ramus fracture Priority: Primary Status: Acute Qualifiers: Encounter type: initial encounter Fracture type: closed Laterality: right Qualified Code(s): S32.591A - Other specified fracture of right pubis, initial encounter for closed fracture (5) Atrial fibrillation Priority: Secondary Status: Chronic Qualifiers: Atrial fibrillation type: paroxysmal Qualified Code(s): I48.0 - Paroxysmal atrial fibrillation (6) Heart failure with reduced ejection fraction Priority: Secondary Status: Chronic Qualifiers: Heart failure chronicity: chronic Qualified Code(s): I50.22 - Chronic systolic (congestive) heart failure (7) Chronic kidney disease (CKD) Priority: Secondary Status: Acute Qualifiers: Chronic kidney disease stage: stage 4 (severe) Qualified Code(s): N18.4 - Chronic kidney disease, stage 4 (severe) (8) Cirrhosis Priority: Secondary Status: Chronic Qualifiers: Hepatic cirrhosis type: unspecified hepatic cirrhosis Ascites presence: without ascites Qualified Code(s): K74.60 - Unspecified cirrhosis of liver (9) PAD (peripheral artery disease) Priority: Secondary Status: Chronic (10) Hyponatremia Priority: Secondary Status: Acute (11) DVT prophylaxis Priority: Secondary Status: Acute Hospital course: Mr. King is a 87 year old male who presented to the emergency department on . Past medical history of atrial fibrillation, cirrhosis, congestive heart failure, coronary artery disease, hyperlipidemia, hypertension, myocardial infarction, peripheral arterial disease, renal disease, valvular heart disease. Patient had pubic bone fracture on CT of abdomen and pelvis after having a fall earlier that day. Or the was consulted and did not have any suggestion for operation at this time. While here, patient had an upper endoscopy performed by gastroenterology as patient has anemia and had a positive guaiac. Upper endoscopy revealed duodenal bulb ulcer. Patient was given protonic's, placed on omeprazole, and Carafate. Patient's hemoglobin has stabilized. Patient required further rehabilitation outside the hospital as he was at high risk for further falls and has a new right inferior pubic ramus fracture. Patient will follow up with primary care provider on outpatient basis. Hemodynamically stable at time of discharge. Consider follow-up with orthopedic surgery if condition does not improve. Patient has chronic history of hyponatremia. I suspect this is due to the lack of sodium in his diet as he has congestive heart failure. Patient was discharged with sodium of 130. There are recommendations for follow-up in the next 3 days with a repeat sodium. - Time Spent with Patient Total time spent providing and/or coordinating discharge services: - Discharge Medications Prescriptions: Omeprazole [PriLOSEC] 20 mg PO BIDAC #60 capsule. Sucralfate [Carafate] 1 gm PO QIDAC #30 udc Home Medications: Atorvastatin [Lipitor] 40 mg PO HS 06/08/15 [History] Gabapentin [Neurontin] 600 mg PO HS 06/08/15 [History] Garlic 1,000 mg PO DAILY 06/08/15 [History] Metoprolol [Lopressor] 50 mg PO BID 06/08/15 [History] Multivitamin [Flintstones] 1 tab PO DAILY 06/08/15 [History] [place]-3S/Dha/Epa/Fish Oil [Fish Oil 1,200 mg Softgel] 1 cap PO DAILY 06/08/15 [ History] Montelukast [Singulair] 10 mg PO HS 11/05/15 [History] Latanoprost 1 drop BOTH EYES HS 11/28/15 [History] Tamsulosin [Flomax] 0.4 mg PO BID 01/27/17 [History] Ferrous Sulfate 325 mg PO DAILY 04/08/17 [History] Furosemide [Lasix] 40 mg PO DAILY 04/08/17 [History] Loratadine [Claritin] 10 mg PO DAILY 04/08/17 [History] Spironolactone [Aldactone] 50 mg PO BID 04/08/17 [History] Isosorbide MONOnitrate (24 HR) [Imdur] 30 mg PO DAILY 06/20/17 [History] metOLazone [Zaroxolyn] 2.5 mg PO AD PRN 06/20/17 [History] Omeprazole [PriLOSEC] 20 mg PO BIDAC #60 capsule.dr 10/21/17 [Rx] Sucralfate [Carafate] 1 gm PO QIDAC #30 udc 10/21/17 [Rx] Allergies/Adverse Reactions: 3 Allergy/AdvReac Type Severity Reaction Status Date / Time clopidogrel [From Plavix] Allergy Itching Verified 12/03/16 19:46 Cortisone Allergy Joint Pain Verified 12/03/16 19:46 Date of admission: 10/18/17 09:48 Primary care physician: Roberta Berrios, - Constitutional Vitals: Temp Pulse Resp BP Pulse Ox 98.9 F 73 16 118/57 98 10/21/17 06:33 10/21/17 06:33 10/21/17 06:33 10/21/17 06:33 10/21/17 06:33 General appearance: Present: cooperative, A&O X 3, no acute distress - Head Head exam: Present: atraumatic, normal inspection - ENT ENT exam: Present: mucous membranes moist - Neck Neck exam general surgery: Present: supple, trachea midline - Respiratory Respiratory exam: Present: CTAB - Cardiovascular Cardiovascular exam: Present: +S1, +S2. Absent: diastolic murmur, JVD, systolic murmur - GI/Abdominal GI/Abdominal exam: Present: soft, no peritoneal signs. Absent: firm, guarding, rigid, tenderness - Extremities Exam Extremities exam: Absent: pedal edema - Neurological Exam Neurological exam: Present: alert - Patient Status Disposition: Transfer Other Condition: Good Overall status at discharge: patient is progressing back to baseline - Discharge Instructions Instructions: Heart Failure (DC), Peptic Ulcer (GEN), Anemia (GEN) Follow Up With: [facility] [Outside] Nba Pacheco MD [Partnered Physician] - (Web request placed for GI 2 week followup.) Forms: ED Satisfaction Letter Additional Instructions: Follow-up with the [facility] by setting up an appointment for follow-up in 2 weeks. Follow-up with gastroenterology by setting up an appointment for follow-up in 2 weeks. Take all medications as prescribed. Return to the emergency department if you develop any new symptoms or any worsening of your current symptoms. - Diet and Activity Activity: as per physical therapy Diet: advance to your usual diet - VTE Documentation of Mechanical Device: Intermittent pneumatic compression device <Pierre Tidwell - Last Filed: 10/21/17 15:57> Date of Encounter: 10/21/17 Hospital course: Mr. King is a 87 year old male - Time Spent with Patient Total time spent providing and/or coordinating discharge services: Date of admission: 10/18/17 09:48 Primary care physician: Roberta Berrios, - Constitutional Vitals: Temp Pulse Resp BP Pulse Ox 98.5 F 81 16 117/64 95 10/21/17 10:00 10/21/17 10:00 10/21/17 10:00 10/21/17 10:00 10/21/17 10:00 - Attending Attestation I performed an independent interview and examine this patient. I agree with the findings, assessment, and plan of Dr. Rodriguez, internal medicine science intern. Patient was doing well on day of discharge. Continue on proton pump inhibitor and Carafate for known duodenal bulb ulcer. His hemoglobin remained stable. Patient will follow-up with his primary care provider soon. Also with thick surgery of hip pain does not improve. His sodium level is 1:30 on day of discharge. This is actually improved from his chronic hyponatremia. He will have a repeat BMP in 3 days. If his sodium drops further, may consider salt replacement, but cautiously given his history of CHF. A she otherwise is stable for discharge. 30 minutes spent on discharge and coordination of care Hospital course: Mr. King is a 87 year old male who presented to the emergency department on . Past medical history of atrial fibrillation, cirrhosis, congestive heart failure, coronary artery disease, hyperlipidemia, hypertension, myocardial infarction, peripheral arterial disease, renal disease, valvular heart disease. Patient had pubic bone fracture on CT of abdomen and pelvis after having a fall earlier that day. Or the was consulted and did not have any suggestion for operation at this time. While here, patient had an upper endoscopy performed by gastroenterology as patient has anemia and had a positive guaiac. Upper endoscopy revealed duodenal bulb ulcer. Patient was given protonic's, placed on omeprazole, and Carafate. Patient's hemoglobin has stabilized. Patient required further rehabilitation outside the hospital as he was at high risk for further falls and has a new right inferior pubic ramus fracture. Patient will follow up with primary care provider on outpatient basis. Hemodynamically stable at time of discharge. Consider follow-up with orthopedic surgery if condition does not improve. Patient has chronic history of hyponatremia. I suspect this is due to the lack of sodium in his diet as he has congestive heart failure. Patient was discharged with sodium of 130. There are recommendations for follow-up in the next 3 days with a repeat sodium.
--- NOTE | 2017-10-21 10:49 | Physician Discharge Referral ---
ExtendedCare Referral Info Transfer To: ECF/SNF - Diagnosis (1) Duodenal bulb ulcer Priority: Primary Status: Acute (2) Anemia Priority: Primary Status: Acute (3) Dehydration Priority: Primary Status: Acute (4) Pubic ramus fracture Priority: Primary Status: Acute (5) Atrial fibrillation Priority: Secondary Status: Chronic (6) Heart failure with reduced ejection fraction Priority: Secondary Status: Chronic (7) Chronic kidney disease (CKD) Priority: Secondary Status: Acute (8) Cirrhosis Priority: Secondary Status: Chronic (9) PAD (peripheral artery disease) Priority: Secondary Status: Chronic (10) DVT prophylaxis Priority: Secondary Status: Acute - Transfer Medications Prescriptions: Omeprazole [PriLOSEC] 20 mg PO BIDAC #60 capsule. Sucralfate [Carafate] 1 gm PO QIDAC #30 udc Home Medications: Atorvastatin [Lipitor] 40 mg PO HS 06/08/15 [History] Gabapentin [Neurontin] 600 mg PO HS 06/08/15 [History] Garlic 1,000 mg PO DAILY 06/08/15 [History] Metoprolol [Lopressor] 50 mg PO BID 06/08/15 [History] Multivitamin [Flintstones] 1 tab PO DAILY 06/08/15 [History] [place]-3S/Dha/Epa/Fish Oil [Fish Oil 1,200 mg Softgel] 1 cap PO DAILY 06/08/15 [ History] Montelukast [Singulair] 10 mg PO HS 11/05/15 [History] Latanoprost 1 drop BOTH EYES HS 11/28/15 [History] Tamsulosin [Flomax] 0.4 mg PO BID 01/27/17 [History] Ferrous Sulfate 325 mg PO DAILY 04/08/17 [History] Furosemide [Lasix] 40 mg PO DAILY 04/08/17 [History] Loratadine [Claritin] 10 mg PO DAILY 04/08/17 [History] Spironolactone [Aldactone] 50 mg PO BID 04/08/17 [History] Isosorbide MONOnitrate (24 HR) [Imdur] 30 mg PO DAILY 06/20/17 [History] metOLazone [Zaroxolyn] 2.5 mg PO AD PRN 06/20/17 [History] Omeprazole [PriLOSEC] 20 mg PO BIDAC #60 capsule. 10/21/17 [Rx] Sucralfate [Carafate] 1 gm PO DA #30 [facility] [place]21[place]17 [Rx] Allergies/Adverse Reactions: 3 Allergy/AdvReac Type Severity Reaction Status Date / Time clopidogrel [From Plavix] Allergy Itching Verified 12/03/16 19:46 Cortisone Allergy Joint Pain Verified 12/03/16 19:46 - Respiratory Orders Smoking Cessation: Smoking cessation has been advised. For more information, call the [facility] Quit Line at [phone]. - Lab Orders Lab Orders: Other (include drug levels w/frequency) (Obtain serum sodium in 3 days) - Advance Directives Code Status: Full Code - Mobility Orders Other (As tolerated.) - Rehabiliation Orders Rehab Potential: Fair - Diet Orders Cardiac (But consider salt replacement if hyponatremic.) CERTIFICATION: I certify that the transfer of the above named patient to an Extended Care Facility is necessary for the continuing treatment of the diagnosis listed. The above information is true and accurate reflection of patient's current condition. Confidential - Redisclosure prohibited without a patient's written consent.
[2017-10-21 15:10] LABS: ANA IgG by ELISA NONE DETECTED (None Detected); F-Actin (sm muscle) Ab IgG 42 Units (0-19)
[2017-10-22 08:10] LABS: Smooth Muscle Ab Titer IgG <1:20 (<1:20)
== END 2017-10-21 12:43 | disposition other institution (70) | DRG 536 ==
LOC: 3NENU 16:22 → EMEROO 16:22 → SUATTDRO 22:39 → 3NENU 23:24
PROVIDERS: ADMIT Internal Medicine; ATTEND Internal Medicine

== ENCOUNTER 2017-12-06 21:53 | Inpatient (IN) ==
--- NOTE | 2017-12-06 22:11 | Emergency Department Note ---
Addendum entered and electronically signed by Rikki Lemons DO 12/07/17 04:28: 12/06/2017 at 22:44. Atrial paced rhythm. Rate 62. ER 146. QRS 218. QTC 506. No acute ST elevation or depression. Original Note: Disposition Clinical Impression: Hyperammonemia Altered mental status Qualifiers: Altered mental status type: unspecified Qualified Code(s): R41.82 - Altered mental status, unspecified Fall Qualifiers: Encounter type: initial encounter Qualified Code(s): W19.XXXA - Unspecified fall, initial encounter CKD (chronic kidney disease) Qualifiers: Chronic kidney disease stage: stage 4 (severe) Qualified Code(s): N18.4 - Chronic kidney disease, stage 4 (severe) Disposition: Admitted As Inpatient Condition: Good Time of Disposition: 02:44 Fall HPI - General Chief Complaint: ED Fall Stated Complaint: Fall Time Seen by Provider: 12/06/17 22:05 Source: patient, EMS Mode of arrival: ambulatory Limitations: no limitations Nursing Notes Reviewed: Yes Vital Signs Reviewed: Yes - History of Present Illness HPI Narrative: Patient is an 87-year-old male with past medical history of hypertension, hyperlipidemia, CAD, previous NC, cirrhosis, CHF. He presents today due to altered mental status. According to EMS, patient was alone and had a fall. Family was present at the scene and says that he is more confused than his usual baseline. When talking to the patient, he does admit that he had what sounds like a mechanical fall, he described walking across the living room to turn up the air conditioner and fell. He denies any chest pain, shortness of breath, palpitations, lightheadedness, dizziness, abdominal pain, diarrhea, vomiting, nausea. However, he is pleasantly confused during this entire presentation and takes several minutes and appears confused when answering all review of system questions. No family present at bedside for any further detail. - Related Data Home Medications Medication Instructions Recorded Confirmed Atorvastatin [Lipitor] 40 mg PO HS 06/08/15 10/18/17 Gabapentin [Neurontin] 600 mg PO HS 06/08/15 10/18/17 Garlic 1,000 mg PO DAILY 06/08/15 10/18/17 Metoprolol [Lopressor] 50 mg PO BID 06/08/15 10/18/17 Multivitamin [Flintstones] 1 tab PO DAILY 06/08/15 10/18/17 [place]-3S/Dha/Epa/Fish Oil [Fish 1 cap PO DAILY 06/08/15 10/18/17 Oil 1,200 mg Softgel] Montelukast [Singulair] 10 mg PO HS 11/05/15 10/18/17 Latanoprost 1 drop BOTH EYES HS 11/28/15 10/18/17 Tamsulosin [Flomax] 0.4 mg PO BID 01/27/17 10/18/17 Ferrous Sulfate 325 mg PO DAILY 04/08/17 10/18/17 Furosemide [Lasix] 40 mg PO DAILY 04/08/17 10/18/17 Loratadine [Claritin] 10 mg PO DAILY 04/08/17 10/18/17 Spironolactone [Aldactone] 50 mg PO BID 04/08/17 10/18/17 Isosorbide MONOnitrate (24 HR) 30 mg PO DAILY 06/20/17 10/18/17 [Imdur] metOLazone [Zaroxolyn] 2.5 mg PO AD PRN 06/20/17 10/18/17 Previous Rx's Medication Instructions Recorded Omeprazole [PriLOSEC] 20 mg PO BIDAC #60 capsule. 10/21/17 Sucralfate [Carafate] 1 gm PO QIDAC #30 udc 10/21/17 Allergies Allergy/AdvReac Type Severity Reaction Status Date / Time clopidogrel [From Plavix] Allergy Itching Verified 12/03/16 19:46 Cortisone Allergy Joint Pain Verified 12/03/16 19:46 All systems ED: reviewed and negative except as stated. Constitutional: Denies: fever Cardiovascular: Denies: chest pain Respiratory: Denies: cough, dyspnea, wheezes Gastrointestinal: Denies: abdominal pain, nausea, vomiting, diarrhea Genitourinary: Denies: urgency, dysuria Neurological: Reports: other (Fall). Denies: headache, weakness, numbness, paresthesias Fall PMH - Past Medical History Medical history: Reports: atrial fibrillation, cirrhosis, CHF, coronary artery disease, hyperlipidemia, hypertension, myocardial infarction, peripheral artery disease, renal disease, valvular heart disease, other Surgical history: Reports: angioplasty/stent, carotid endarterectomy, coronary bypass (CABG), pacemaker/AICD, vascular surgery, other, pacemaker Psychiatric history: Reports: no psych history - Social History Smoking Status: Never smoker Alcohol use: Reports: none Drug use: Reports: none Physical Exam - General Limitations: altered mental status, physical limitation, other General appearance: alert - Head Head exam: atraumatic, normocephalic, normal inspection - Eye Eye exam: Present: normal appearance, PERRL, EOMI - ENT ENT exam: normal exam, normal oropharynx, mucous membranes moist - Neck Neck exam: Present: normal inspection, full ROM, trachea midline - Chest Chest inspection: Present: normal inspection, symmetric chest wall rise - Respiratory Respiratory exam: Present: normal lung sounds bilaterally - Cardiovascular Cardiovascular exam: Present: regular rate, normal rhythm, normal heart sounds - Abdominal Exam Abdominal exam: Present: soft, Non-Tender, distention (Generalized abdominal distention, soft umbilical hernia that is easily reducible). Absent: tenderness , guarding, rebound, rigidity - Extremities Exam Extremities exam: Present: normal inspection, full ROM. Absent: tenderness, pedal edema - Neurological Exam Neurological exam: Present: alert - Expanded Neurological Exam Patient oriented to: Present: person, place. Absent: time Speech: Present: fluid speech Cranial nerves: EOM function (II, III, IV, ): Normal, facial sensation (V): Normal, facial palsy (VII): Normal, spinal accessory function (XI): Normal, tongue deviation (XII): Normal Motor strength - LUE: 5/5 Motor strength - RUE: 5/5 Motor strength - LLE: 5/5 Motor strength - RLE: 5/5 Sensory exam upper extremity: light touch: Normal Sensory exam lower extremity: light touch: Normal Coma Scale Eye Opening: Spontaneous Coma Scale Motor Response: Obeys Commands Coma Scale Verbal Response: Confused Coma Scale Total: 14 - Psychiatric Psychiatric exam: Present: normal affect, normal mood - Skin Skin exam: Present: warm, dry, intact, normal color Course Course Narrative: Patient is pleasantly confused, alert and oriented [address] but not time. No focal neurologic deficits. We will obtain CT the head and cervical spine. We will also obtain CT abdomen and pelvis due to cirrhosis and distended abdomen. Physical labs ordered along with LFTs, lipase, acetaminophen , aspirin levels. 02:40 patient had elevated ammonia levels, otherwise, the rest of the abnormal labs were near baseline for the patient including troponin and creatinine. Chest x-ray showed left basilar atelectasis. Did not treat for any pneumonia at this time as he is afebrile, has had no cough. CT abdomen and pelvis shows large amount of ascites and evidence of hepatic cirrhosis, old T8 and T10 fractures, pubic rami fractures that appear old as well.. No new fractures evident. CT head and cervical spine negative for any fractures. Due to high ammonia level, we will give the patient lactulose. Patient is still pleasantly confused. Patient was accepted for admission by Dr. Torres. Chest X-Ray 12/06/17 22:23 IMPRESSION: Left basilar pulmonary opacity may represent atelectasis, aspiration, and/or pneumonia. Persistently enlarged cardiomediastinal silhouette appears unchanged. D/ / Antelmo Smith MD / Antelmo Smith MD Interpreting Provider: Antelmo Smith MD Abdomen/Pelvis CT 12/06/17 22:24 IMPRESSION: Interval increase in a large amount of ascites throughout the abdomen and pelvis, with extensive mesenteric edema. Hepatic cirrhosis. Large calcified gallstone. Limited evaluation of cholecystitis in setting of ascites. Severe compression deformity of the T8 vertebral body, and mild compression deformity of the T10 vertebral body appears unchanged from previous examination. Subacute to chronic fractures involving the bilateral inferior pubic ramus, and left pubis extending into the left superior pubic ramus. Limited evaluation of a nondisplaced fractures due to severe osteopenia. Cardiomegaly, with a trace bilateral pleural effusions. D/ / Antelmo Smith MD / Antelmo Smith MD Interpreting Provider: Antelmo Smith MD Cervical Spine CT 12/06/17 22:24 IMPRESSION: No acute abnormality of the cervical spine. D/ / Paulie Walters / Paulie Walters Interpreting Provider: Paulie Walters Head CT 12/06/17 22:24 IMPRESSION: No acute intracranial abnormality. D/ / Paulie Walters / Paulie Walters Interpreting Provider: Paulie Walters Vital Signs Temperature 98.3 F 12/06/17 21:59 Pulse Rate 71 12/06/17 21:59 Respiratory Rate 17 12/06/17 21:59 Blood Pressure 108/64 12/06/17 21:59 O2 Sat by Pulse Oximetry 95 12/06/17 21:59 Temperature 97.4 F L 12/07/17 04:58 Pulse Rate 68 12/07/17 04:58 Respiratory Rate 16 12/07/17 04:58 Blood Pressure 126/92 12/07/17 04:58 O2 Sat by Pulse Oximetry 96 12/07/17 04:58 Oxygen Delivery Oxygen Delivery Room Air Fall - MDM Narrative Medical decision making narrative: Patient is pleasantly confused, alert and oriented [address] but not time. No focal neurologic deficits. We will obtain CT the head and cervical spine. We will also obtain CT abdomen and pelvis due to cirrhosis and distended abdomen. Physical labs ordered along with LFTs, lipase, acetaminophen , aspirin levels. 02:40 patient had elevated ammonia levels, otherwise, the rest of the abnormal labs were near baseline for the patient including troponin and creatinine. Chest x-ray showed left basilar atelectasis. Did not treat for any pneumonia at this time as he is afebrile, has had no cough. CT abdomen and pelvis shows large amount of ascites and evidence of hepatic cirrhosis, old T8 and T10 fractures, pubic rami fractures that appear old as well.. No new fractures evident. CT head and cervical spine negative for any fractures. Due to high ammonia level, we will give the patient lactulose. Patient is still pleasantly confused. Patient was accepted for admission by Dr. Torres. - Medical Records Medical records reviewed: Yes I reviewed the patient's medical records. - Lab Data Lab results reviewed: Yes I reviewed the patient's lab results. Result diagrams: 12/07/17 05:14 12/06/17 22:37 Lab Results 12/06/17 12/06/17 12/06/17 Range/Units 22:37 22:37 22:37 WBC 7.4 (4.3-11.1) K/mcL RBC 2.83 L (4.19-5.50) M/mcL Hgb 9.2 L (12.9-16.9) g/dL Hct 26.8 L (37.5-50.1) % MCV 94.7 (83.0-100.0) fL MCH 32.5 (28.0-33.3) pg MCHC 34.3 (31.6-35.5) g/dL RDW 17.1 H (11.5-14.5) % Plt Count 133 L (140-400) K/mcL MPV 11.4 (9.4-12.4) fL Immature Gran % 0.4 (0-4) % Seg Neutrophils % 79.9 % Lymphocytes % 8.5 % Monocytes % 8.1 % Eosinophils % 2.8 % Basophils % 0.3 % Neutrophils # 5.9 (1.6-8.9) K/mcL Lymphocytes # 0.6 (0.6-4.6) K/mcL Monocytes # 0.6 (0.0-1.3) K/mcL Eosinophils # 0.2 (0.0-0.6) K/mcL Basophils # 0.0 (0.0-0.2) K/mcL PT 14.5 H (9.4-12.1) Seconds INR 1.3 APTT 37.2 H (26.0-36.0) Seconds Sodium 127 L (136-145) mEq/L Potassium 3.2 L (3.5-5.1) mEq/L Chloride 90 L (98-107) mEq/L Carbon Dioxide 26 (23-29) mEq/L BUN 81 H (8-23) mg/dL Creatinine 3.63 H (0.70-1.30) mg/dL Est GFR ( Amer) 19 L (> 60) Est GFR (Non-Af Amer) 16 L (> 60) BUN/Creatinine Ratio 22 (6-26) Glucose 130 H (70-105) mg/dL Calculated Osmolality 290 (280-300) Calcium 8.7 (8.6-10.3) mg/dL Total Bilirubin 0.7 (0.3-1.0) mg/dL Direct Bilirubin 0.3 H (0.0-0.2) mg/dL Indirect Bilirubin 0.4 (0.0-1.2) mg/dL AST 22 (13-39) Units/L ALT 9 (7-52) Units/L Alkaline Phosphatase 135 H (34-104) Units/L Ammonia (16-53) mcmol/L Troponin I 0.07 H* (< 0.04) ng/mL Serum Total Protein 7.2 (6.4-8.9) g/dL Albumin 3.1 L (3.5-5.7) g/dL Globulin 4.1 H (2.4-3.5) g/dL Albumin/Globulin Ratio 0.8 L (1.1-2.2) TSH 9.072 H (0.340-5.600) mcIU/mL Free T4 0.89 (0.70-2.00) ng/dl Free T3 2.52 (2.50-3.90) pg/mL Urine Color (Yellow) Urine Clarity (Clear) Urine pH (5.0-8.0) pH Units Ur Specific [place] (1.010-1.025) Urine Protein (Neg-Trace) mg/dL Urine Glucose (UA) (Normal) mg/dL Urine Ketones (Negative) mg/dL Urine Blood (Negative) Urine Nitrite (Negative) Urine Bilirubin (Negative) Urine Urobilinogen (Normal) mg/dL Ur Leukocyte Esterase (Negative) Urine Microscopic RBC (0-3) per hpf Urine Microscopic WBC (0-3) per hpf Ur Squamous Epith Cells (None-Few) per lpf Urine Bacteria (None-Few) per hpf Hyaline Casts (None-Few) per lpf Ur Culture Indicated? (NO) Salicylates (15.0-30.0) mg/dL Acetaminophen (10-20) mcg/mL 12/06/17 12/06/17 12/06/17 Range/Units 22:37 22:37 23:30 WBC (4.3-11.1) K/mcL RBC (4.19-5.50) M/mcL Hgb (12.9-16.9) g/dL Hct (37.5-50.1) % MCV (83.0-100.0) fL MCH (28.0-33.3) pg MCHC (31.6-35.5) g/dL RDW (11.5-14.5) % Plt Count (140-400) K/mcL MPV (9.4-12.4) fL Immature Gran % (0-4) % Seg Neutrophils % % Lymphocytes % % Monocytes % % Eosinophils % % Basophils % % Neutrophils # (1.6-8.9) K/mcL Lymphocytes # (0.6-4.6) K/mcL Monocytes # (0.0-1.3) K/mcL Eosinophils # (0.0-0.6) K/mcL Basophils # (0.0-0.2) K/mcL PT (9.4-12.1) Seconds INR APTT (26.0-36.0) Seconds Sodium (136-145) mEq/L Potassium (3.5-5.1) mEq/L Chloride (98-107) mEq/L Carbon Dioxide (23-29) mEq/L BUN (8-23) mg/dL Creatinine (0.70-1.30) mg/dL Est GFR ( Amer) (> 60) Est GFR (Non-Af Amer) (> 60) BUN/Creatinine Ratio (6-26) Glucose (70-105) mg/dL Calculated Osmolality (280-300) Calcium (8.6-10.3) mg/dL Total Bilirubin (0.3-1.0) mg/dL Direct Bilirubin (0.0-0.2) mg/dL Indirect Bilirubin (0.0-1.2) mg/dL AST (13-39) Units/L ALT (7-52) Units/L Alkaline Phosphatase (34-104) Units/L Ammonia 119 H (16-53) mcmol/L Troponin I (< 0.04) ng/mL Serum Total Protein (6.4-8.9) g/dL Albumin (3.5-5.7) g/dL Globulin (2.4-3.5) g/dL Albumin/Globulin Ratio (1.1-2.2) TSH (0.340-5.600) mcIU/mL Free T4 (0.70-2.00) ng/dl Free T3 (2.50-3.90) pg/mL Urine Color Yellow (Yellow) Urine Clarity Clear (Clear) Urine pH 6.0 (5.0-8.0) pH Units Ur Specific [place] 1.012 (1.010-1.025) Urine Protein Negative (Neg-Trace) mg/dL Urine Glucose (UA) Normal (Normal) mg/dL Urine Ketones Negative (Negative) mg/dL Urine Blood Negative (Negative) Urine Nitrite Negative (Negative) Urine Bilirubin Negative (Negative) Urine Urobilinogen Normal (Normal) mg/dL Ur Leukocyte Esterase Small H (Negative) Urine Microscopic RBC 3-5 H (0-3) per hpf Urine Microscopic WBC 15-30 H (0-3) per hpf Ur Squamous Epith Cells Moderate H (None-Few) per lpf Urine Bacteria None Seen (None-Few) per hpf Hyaline Casts None Seen (None-Few) per lpf Ur Culture Indicated? YES A (NO) Salicylates < 2.5 L (15.0-30.0) mg/dL Acetaminophen < 10 L (10-20) mcg/mL - Radiology Data Radiology results reviewed: Yes I reviewed the patient's radiology results. Chest X-Ray 12/06/17 22:23 IMPRESSION: Left basilar pulmonary opacity may represent atelectasis, aspiration, and/or pneumonia. Persistently enlarged cardiomediastinal silhouette appears unchanged. D/ / Antelmo Smith MD / Antelmo Smith MD Interpreting Provider: Antelmo Smith MD Abdomen/Pelvis CT 12/06/17 22:24 IMPRESSION: Interval increase in a large amount of ascites throughout the abdomen and pelvis, with extensive mesenteric edema. Hepatic cirrhosis. Large calcified gallstone. Limited evaluation of cholecystitis in setting of ascites. Severe compression deformity of the T8 vertebral body, and mild compression deformity of the T10 vertebral body appears unchanged from previous examination. Subacute to chronic fractures involving the bilateral inferior pubic ramus, and left pubis extending into the left superior pubic ramus. Limited evaluation of a nondisplaced fractures due to severe osteopenia. Cardiomegaly, with a trace bilateral pleural effusions. D/ / Antelmo Smith MD / Antelmo Smith MD Interpreting Provider: Antelmo Smith MD Cervical Spine CT 12/06/17 22:24 IMPRESSION: No acute abnormality of the cervical spine. D/ / Paulie Walters / Paulie Walters Interpreting Provider: Paulie Walters Head CT 12/06/17 22:24 IMPRESSION: No acute intracranial abnormality. D/ / Paulie Walters / Paulie Walters Interpreting Provider: Paulie Walters - EKG Data EKG attestation: Yes I reviewed and interpreted this EKG. S.B.AShayleeR. - S.B.ALexie Situation: Demographics, MOA Background: Presenting Complaint, Relevant PMH, Meds, & Allergies Assessment: Vital Signs, Course and respsone to treatment, Exam Concerns, Patient/Family Expectation, Pertinant Lab Results Recommendation: Barrier(s) to disposition, Recommendation based on pending studies, treatments, or consults S.B.A.RShaylee Report Given to: Dr. Torres Attestation Statement - Attestation Attestation: I examined this patient and my medical decision-making was reviewed with the Resident Physician. I agree with the documented findings, disposition and treatment plan as described except to the extent set forth below. Findings consistent with altered mental status, fall. The patient has history of ascites and has high ammonia levels. We will give lactulose, admitted to the hospital for further management.
[2017-12-06 22:48] LABS: Basophils % 0.3 %; Eosinophils # 0.2 K/mcL (0.0-0.6); Eosinophils % 2.8 %; Hematocrit 26.8 % (37.5-50.1); Hemoglobin 9.2 g/dL (12.9-16.9); Immature Granulocytes % 0.4 % (0-4); Lymphocytes # 0.6 K/mcL (0.6-4.6); Lymphocytes % 8.5 %; Mean Corpuscular HGB Conc 34.3 g/dL (31.6-35.5); Mean Corpuscular Hemoglobin 32.5 pg (28.0-33.3); Mean Corpuscular Volume 94.7 fL (83.0-100.0); Mean Platelet Volume 11.4 fL (9.4-12.4); Monocytes # 0.6 K/mcL (0.0-1.3); Monocytes % 8.1 %; Neutrophils # 5.9 K/mcL (1.6-8.9); Platelet Count 133 K/mcL (140-400); Red Blood Count 2.83 M/mcL (4.19-5.50); Red Cell Distribution Width 17.1 % (11.5-14.5); Segmented Neutrophils % 79.9 %
[2017-12-06 22:56] LABS: INR 1.3; Prothrombin Time 14.5 Seconds (9.4-12.1)
[2017-12-06 22:59] LABS: Activated Partial Thrombo Time 37.2 Seconds (26.0-36.0)
[2017-12-06 23:11] LABS: Acetaminophen < 10 mcg/mL (10-20); Salicylate < 2.5 mg/dL (15.0-30.0)
[2017-12-06 23:13] LABS: Albumin 3.1 g/dL (3.5-5.7); Albumin/Globulin Ratio 0.8 (1.1-2.2); Bilirubin,Direct 0.3 mg/dL (0.0-0.2); Bilirubin,Indirect 0.4 mg/dL (0.0-1.2); Bilirubin,Total 0.7 mg/dL (0.3-1.0); Calcium 8.7 mg/dL (8.6-10.3); Globulin 4.1 g/dL (2.4-3.5); Potassium 3.2 mEq/L (3.5-5.1); Total Protein 7.2 g/dL (6.4-8.9)
[2017-12-06 23:17] LABS: Troponin I 0.07 ng/mL (< 0.04)
[2017-12-06 23:27] LABS: Thyroid Stimulating Hormone 9.072 mcIU/mL (0.340-5.600)
[2017-12-06 23:41] LABS: Bilirubin,Urine Negative (Negative); Blood,Urine Negative (Negative); Clarity,Urine Clear (Clear); Color,Urine Yellow (Yellow); Glucose,Urine (UA) Normal (Normal); Ketones,Urine Negative (Negative); Leukocyte Esterase,Urine Small (Negative); Nitrite,Urine Negative (Negative); Protein,Urine Negative (Neg-Trace); Specific Gravity,Urine 1.012 (1.010-1.025); Urobilinogen,Urine Normal (Normal)
[2017-12-06 23:44] LABS: Bacteria,Urine None Seen per hpf (None-Few); Hyaline Casts,Urine None Seen per lpf (None-Few); Squamous Epithelial Cell,Urine Moderate per lpf (None-Few); WBC,Urine 15-30 per hpf (0-3)
[2017-12-07 01:07] LABS: Triiodothyronine (T3) Free 2.52 pg/mL (2.50-3.90)
[2017-12-07] MEDS ORDERED: Lactulose Oral Soln 20 GM/30 ML UDC PO ONE (01:45)
[2017-12-07] MEDS ORDERED: Dextrose Gel 15 GM/37.5 ML TUBE PO PRN ×2 (01:56)
[2017-12-07] MEDS ORDERED: Naloxone 0.4 MG/ML INJ IVP PRN (01:56)
[2017-12-07] MEDS ORDERED: *HR* Dextrose 50 % in Water (Syg) 50 ML SYRINGE IVP PRN (01:56)
[2017-12-07] MEDS ORDERED: D5% in Water 1,000 ML IVC PRN (01:56)
--- NOTE | 2017-12-07 02:13 | Internal Med History&Physical ---
Date of Encounter: 12/07/17 Time of Encounter: 02:03 Internal Medicine - H&P: HPI Chief complaint: Fall Admitted From: Emergency Dept Plans for Post Hospital Care: Home History of present illness: Mr. King is a 87 year old male PMH Liver cirrhosis, CHF, afib, DM, CAD s/p CABG , HTN, HLD, CKD3, and chronic anemia who had sustained a fall and used his life alert button after the fall for help. He lives alone apparently and there is no family around. His son out of town was contacted as the patient was noted to be confused by a EMS and he stated that his father has some baseline confusion/ dementia, although it is not clear to what degree. He gets an aide at home per the ED who also noted him to be confused more than usual. He is A/Ox1 to self upon my evaluation, but knows he is in a hospital but doesn't know which. He is not alert to time. He says he fell trying to turn on the AC. Says his right leg gave out and this has been an issue for some time. No LOC. He is not the best historian. Was hemodynamically stable in the ED. labs showed ammonia of 119. Not sure if he is compliant with lactulose or if he even takes it. creatinine and GFR are worse than baseline. Trops at .07 but no EKG concerning changes. Given lactulose in the ED. CT head negative. CT abd/pelivs picked up a larger ascites compared to previous and subactue to chronic fractures involving the bilateral inferior pubic ramus, and left pubis extending in the left superior pubic ramus. The patient was admitted for that in September into October and was discharged as this is non-operative. There was also severe compression deformity of the T8 vertevral body, and mild compression deformity of the T10 vertebral body unchanged from previous. He underwent a 3.5L paracentesis back on 11/09. Past Med Surg Social Fam HX - Past Medical History Medical history: atrial fibrillation, cirrhosis, CHF, coronary artery disease, hyperlipidemia, hypertension, myocardial infarction, peripheral artery disease, renal disease, valvular heart disease, other Psychiatric history: no psych history - Past Surgical History Surgical History: angioplasty/stent, carotid endarterectomy, coronary bypass ( CABG), pacemaker/AICD, vascular surgery, other, pacemaker - Social History Smoking Status: Never smoker Smokeless Tobacco Status: No Alcohol use: none Drug use: none - Family History Father Living Status: Hx Family Cardiac Disorders: Yes Hx Family Endocrine Disorder: Yes Internal Medicine - H&P: Meds Gabapentin [Neurontin] 600 mg PO HS 06/08/15 [History] Garlic 1,000 mg PO DAILY 06/08/15 [History] Multivitamin [Flintstones] 1 tab PO DAILY 06/08/15 [History] Montelukast [Singulair] 10 mg PO HS 11/05/15 [History] Tamsulosin [Flomax] 0.4 mg PO BID 01/27/17 [History] Ferrous Sulfate 325 mg PO DAILY 04/08/17 [History] Furosemide [Lasix] 40 mg PO DAILY 04/08/17 [History] Loratadine [Claritin] 10 mg PO DAILY 04/08/17 [History] Spironolactone [Aldactone] 50 mg PO DAILY 04/08/17 [History] Isosorbide MONOnitrate (24 HR) [Imdur] 30 mg PO DAILY 06/20/17 [History] metOLazone [Zaroxolyn] 2.5 mg PO DAILY PRN 06/20/17 [History] Omeprazole [PriLOSEC] 20 mg PO BIDAC #60 capsule.dr 10/21/17 [Rx] Sucralfate [Carafate] 1 gm PO QIDAC #30 udc 10/21/17 [Rx] Atorvastatin [Lipitor] 40 mg PO HS 12/07/17 [History] BuPROPion XL (24 HR) [Wellbutrin XL] 150 mg PO DAILY 12/07/17 [History] Metoprolol [Lopressor] 50 mg PO BID 12/07/17 [History] [place]-3/Dha/Epa/Fish Oil [Fish Oil 1,000 mg Softgel] 1 cap PO DAILY 12/07/17 [ History] 3 Allergy/AdvReac Type Severity Reaction Status Date / Time clopidogrel [From Plavix] Allergy Itching Verified 12/03/16 19:46 Cortisone Allergy Joint Pain Verified 12/03/16 19:46 ROS unobtainable: due to mental status - Constitutional Vitals: Temp Pulse Resp BP Pulse Ox 98.3 F 71 17 108/64 95 12/06/17 21:59 12/06/17 21:59 12/06/17 21:59 12/06/17 21:59 12/06/17 21:59 Exam: GEN: NAD, alert and oriented x1 HEENT: AT, NC, No cyanosis, oral mucosa is moist, No JVD Lymphatics: No lymphadenoapthy Eyes: Extrocular muscles intact, anicteric CVS:RRR. S1, S2, No m/r/g RESP: CTAB ABD: Soft, NT, Distended, umbilical hernia noted, +BS EXT: 1+ edema, No rashes, 2+ DP NEURO: Nonfocal, CN II-XII intact, No focal motor or sensory deficits Psych: Cooperative, Not anxious or depressed Internal Med - H&P Results - Labs CBC & Chem 7: 12/07/17 05:14 12/07/17 05:14 Labs: Short CBC 12/06/17 Range/Units 22:37 WBC 7.4 (4.3-11.1) K/mcL Hgb 9.2 L (12.9-16.9) g/dL Hct 26.8 L (37.5-50.1) % Plt Count 133 L (140-400) K/mcL Neutrophils # 5.9 (1.6-8.9) K/mcL BMP 12/06/17 22:37 Sodium 127 L Potassium 3.2 L Chloride 90 L Carbon Dioxide 26 BUN 81 H Creatinine 3.63 H Glucose 130 H Calcium 8.7 Cardiac Enzymes 12/06/17 Range/Units 22:37 Troponin I 0.07 H* (< 0.04) ng/mL Liver Function 12/06/17 Range/Units 22:37 Total Bilirubin 0.7 (0.3-1.0) mg/dL Direct Bilirubin 0.3 H (0.0-0.2) mg/dL AST 22 (13-39) Units/L ALT 9 (7-52) Units/L Alkaline Phosphatase 135 H (34-104) Units/L Albumin 3.1 L (3.5-5.7) g/dL Urine 12/06/17 Range/Units 23:30 Urine Color Yellow (Yellow) Urine Clarity Clear (Clear) Urine pH 6.0 (5.0-8.0) pH Units Ur Specific [place] 1.012 (1.010-1.025) Urine Protein Negative (Neg-Trace) mg/dL Urine Glucose (UA) Normal (Normal) mg/dL - Impressions ITS Impressions Chest X-Ray 12/06/17 22:23 IMPRESSION: Left basilar pulmonary opacity may represent atelectasis, aspiration, and/or pneumonia. Persistently enlarged cardiomediastinal silhouette appears unchanged. D/ / Antelmo Smith MD / Antelmo Smith MD Interpreting Provider: Antelmo Smith MD Abdomen/Pelvis CT 12/06/17 22:24 IMPRESSION: Interval increase in a large amount of ascites throughout the abdomen and pelvis, with extensive mesenteric edema. Hepatic cirrhosis. Large calcified gallstone. Limited evaluation of cholecystitis in setting of ascites. Severe compression deformity of the T8 vertebral body, and mild compression deformity of the T10 vertebral body appears unchanged from previous examination. Subacute to chronic fractures involving the bilateral inferior pubic ramus, and left pubis extending into the left superior pubic ramus. Limited evaluation of a nondisplaced fractures due to severe osteopenia. Cardiomegaly, with a trace bilateral pleural effusions. D/ / Antelmo Smith MD / Antelmo Smith MD Interpreting Provider: Antelmo Smith MD Cervical Spine CT 12/06/17 22:24 IMPRESSION: No acute abnormality of the cervical spine. D/ / Paulie Walters / Paulie Walters Interpreting Provider: Paulie Walters Head CT 12/06/17 22:24 IMPRESSION: No acute intracranial abnormality. D/ / Paulie Walters / Paulie Walters Interpreting Provider: Paulie Walters - Assessment and plan (1) Encephalopathy, hepatic Current Visit: No Status: Acute Assessment and plan: Will start him on scheduled lactulose. Monitor mental status. Goal is 3-4 BM's per day. (2) Ascites Current Visit: No Status: Acute Assessment and plan: Seems to be re-accumulating again. Therapeutic paracentesis in am. Give albumin per protocol depending on volumed drained. Morning hospitalist to order. Hold diuretics for now due to above. Qualifiers: Ascites type: other type Qualified Code(s): R18.8 - Other ascites (3) [id number] renal failure Current Visit: No Status: Acute Assessment and plan: Seems to be worse than baseline. Patient is on multiple nephrotoxins. Has liver cirrhosis. Will ask nephrology to see. hold nephrotoxins for now till seen by nephrology. Qualifiers: Acute renal failure type: unspecified Chronic kidney disease stage: stage 4 (severe) Qualified Code(s): N17.9 - Acute kidney failure, unspecified; N18.4 - Chronic kidney disease, stage 4 (severe) (4) Fall Current Visit: No Status: Acute Assessment and plan: Patient has had recurrent falls. He is generally deconditioned. Needs PTOT and likely placement. Qualifiers: Encounter type: initial encounter Qualified Code(s): W19.XXXA - Unspecified fall, initial encounter (5) Atrial fibrillation Current Visit: No Status: Chronic Assessment and plan: Resume rate controlling agents. No anticoagulation due to risk of bleed/falls and liver cirrhosis. Qualifiers: Atrial fibrillation type: paroxysmal Qualified Code(s): I48.0 - Paroxysmal atrial fibrillation (6) CAD (coronary artery disease) Current Visit: No Status: Chronic Assessment and plan: Resume cardiac meds Qualifiers: Coronary Disease-Associated Artery/Lesion type: [place]ski artery [place] vs. transplanted heart: belkofski heart Associated angina: without angina Qualified Code(s): I25.10 - Atherosclerotic heart disease of belk[place]ski coronary artery without angina pectoris (7) Elevated troponin Current Visit: No Status: Chronic Assessment and plan: Likely demand ischemia. Will trend for now. (8) Hyponatremia Current Visit: No Status: Chronic Assessment and plan: Multifactorial with liver cirrhosis, CHF, and multiple diuretics. Will hold diuretics for now. Monitor. labs in am. (9) HTN (hypertension) Current Visit: No Status: Chronic Assessment and plan: c/w home meds Qualifiers: Hypertension type: essential hypertension Qualified Code(s): I10 - Essential (primary) hypertension (10) DVT prophylaxis Current Visit: No Status: Acute Assessment and plan: SCDs - Time Spent With Patient Total time spent is greater than 50% in coordination of care (as documented) at patient's floor/unit and/or counseling patient:
[2017-12-07 05:30] LABS: Basophils % 0.3 %; Eosinophils # 0.2 K/mcL (0.0-0.6); Eosinophils % 3.2 %; Hematocrit 29.7 % (37.5-50.1); Hemoglobin 9.8 g/dL (12.9-16.9); Immature Granulocytes % 0.3 % (0-4); Lymphocytes # 0.8 K/mcL (0.6-4.6); Lymphocytes % 10.7 %; Mean Corpuscular Hemoglobin 31.1 pg (28.0-33.3); Mean Corpuscular Volume 94.3 fL (83.0-100.0); Mean Platelet Volume 11.4 fL (9.4-12.4); Monocytes # 0.7 K/mcL (0.0-1.3); Monocytes % 8.9 %; Neutrophils # 5.8 K/mcL (1.6-8.9); Platelet Count 138 K/mcL (140-400); Red Blood Count 3.15 M/mcL (4.19-5.50); Red Cell Distribution Width 17.2 % (11.5-14.5); Segmented Neutrophils % 76.6 %
[2017-12-07] MEDS: Insulin LISPRO 300 UNITS/3 ML VIAL SQ SCH ×4 (08:42→22:30)
[2017-12-07] MEDS: Multivit/Ca/Min/Fe/FA 1 TAB TABLET PO SCH (08:48)
[2017-12-07] MEDS: Potassium Chloride Elixir 20 MEQ/15 ML UDC PO SCH ×2 (08:48→12:43)
[2017-12-07] MEDS: Isosorbide MONOnitrate (24 HR) 30 MG TAB.ER.24H PO SCH (08:48)
[2017-12-07] MEDS: Lactulose Oral Soln 20 GM/30 ML UDC PO SCH ×3 (08:48→22:30)
[2017-12-07] MEDS: BuPROPion XL (24 HR) 150 MG TABLET PO SCH (08:48)
--- NOTE | 2017-12-07 09:13 | Nephrology Consult Note ---
Date of Encounter: 12/07/17 Time of Encounter: 09:04 Assessment and Plan (1) Acute kidney injury superimposed on chronic kidney disease Current Visit: No Status: Acute Is followed very closely by Dr. Owen in the office. Avoid nephrotoxins and renal dose all medications. FILIBERTO workup started. (2) Altered mental status Current Visit: Yes Status: Acute Seems to be resolving, unsure of baseline. Per primary team. Qualifiers: Altered mental status type: unspecified Qualified Code(s): R41.82 - Altered mental status, unspecified (3) Fall Current Visit: Yes Status: Acute Encouarge staff to have bed alarm on for safety. Did have a life alert at home, which is how he dispatched EMS. Qualifiers: Encounter type: initial encounter Qualified Code(s): W19.XXXA - Unspecified fall, initial encounter (4) Hypokalemia Current Visit: Yes Status: Acute Replacement in progress, per primary team. History of Present Illness - Reason for Consult Consult date: 12/07/17 Acute Kidney Injury, Chronic Kidney Disease - Chief Complaint S/P fall - History of Present Illness Mr. King is a CKD III that is followed by Dr. Owen. He was seen in the office last week and was doing well. However he does live alone and fell on 12/06. Patient is poor historian so all information was per previous records and Dr. Owen's previous office note. In ED, Head CT, Cervical Spint CT and abdomen/pelvis CT were all (-) for any acute fractures or processes. PMH: CAD, CABG, PAD, and ETOH. As noted above he is poor historian and ROS was unobtainable. Urine electrolytes , Retroperitoneal US were both ordered for today, and AM labs for tomorrow. Unsure of I/O he is incontinent at times and wears a brief. Past Med Surg Social Fam HX - Past Medical History Medical history: atrial fibrillation, cirrhosis, CHF, coronary artery disease, hyperlipidemia, hypertension, myocardial infarction, peripheral artery disease, renal disease, valvular heart disease, other Psychiatric history: no psych history - Past Surgical History Surgical History: angioplasty/stent, carotid endarterectomy, coronary bypass ( CABG), pacemaker/AICD, vascular surgery, other, pacemaker - Social History Smoking Status: Never smoker Smokeless Tobacco Status: No Alcohol use: none Drug use: none - Family History Father Living Status: Hx Family Cardiac Disorders: Yes Hx Family Endocrine Disorder: Yes Medications and Allergies Gabapentin [Neurontin] 600 mg PO HS 06/08/15 [History] Garlic 1,000 mg PO DAILY 06/08/15 [History] Multivitamin [Flintstones] 1 tab PO DAILY 06/08/15 [History] Montelukast [Singulair] 10 mg PO HS 11/05/15 [History] Tamsulosin [Flomax] 0.4 mg PO BID 01/27/17 [History] Ferrous Sulfate 325 mg PO DAILY 04/08/17 [History] Furosemide [Lasix] 40 mg PO DAILY 04/08/17 [History] Loratadine [Claritin] 10 mg PO DAILY 04/08/17 [History] Spironolactone [Aldactone] 50 mg PO DAILY 04/08/17 [History] Isosorbide MONOnitrate (24 HR) [Imdur] 30 mg PO DAILY 06/20/17 [History] metOLazone [Zaroxolyn] 2.5 mg PO DAILY PRN 06/20/17 [History] Omeprazole [PriLOSEC] 20 mg PO BIDAC #60 capsule.dr 10/21/17 [Rx] Sucralfate [Carafate] 1 gm PO QIDAC #30 udc 10/21/17 [Rx] Atorvastatin [Lipitor] 40 mg PO HS 12/07/17 [History] BuPROPion XL (24 HR) [Wellbutrin XL] 150 mg PO DAILY 12/07/17 [History] Metoprolol [Lopressor] 50 mg PO BID 12/07/17 [History] [place]-3/Dha/Epa/Fish Oil [Fish Oil 1,000 mg Softgel] 1 cap PO DAILY 12/07/17 [ History] 3 Allergy/AdvReac Type Severity Reaction Status Date / Time clopidogrel [From Plavix] Allergy Itching Verified 12/03/16 19:46 Cortisone Allergy Joint Pain Verified 12/03/16 19:46 Review of Systems ROS unobtainable: due to mental status Exam - Vital Signs Vital signs: Initial Vital Signs Temp Pulse Resp BP Pulse Ox 98.3 F 71 17 108/64 95 12/06/17 21:59 12/06/17 21:59 12/06/17 21:59 12/06/17 21:59 12/06/17 21:59 Vital Signs - Last 8 Hours Temp Pulse Resp BP Pulse Ox 12/07/17 07:25 96.3 F L 65 19 133/77 98 12/07/17 04:58 97.4 F L 68 16 126/92 96 12/07/17 03:53 20 111/65 Intake and Output 12/06/17 12/07/17 12/07/17 23:59 07:59 15:59 Intake Total 100 / 100 Output Total 120 / 120 Balance - Intake: Oral 100 / 100 Output: Urine 120 / 120 Other: # Urine Diapers 1 Weight 78.7 kg Blood Glucose* 118 Patient Weight 12/07/17 23:59 Weight 78.7 kg - General Appearance General appearance: chronically ill EENT: ATNC, hearing intact, vision intact Neck: supple Respiratory: clear Cardiology: edema (Trace bilateral edema noted.), normal S1, normal S2 Gastrointestinal: normoactive bowel sounds, no tenderness, no guarding Integumentary: no rash, warm and dry Neurologic: confused Additional Comments: He is alert to self and location. Psychiatric: mood/affect appropriate, cooperative Results - Lab Results 12/07/17 05:14 12/07/17 05:14 Most recent lab results Calcium 9.0 mg/dL (8.6-10.3) 12/07/17 05:14 Consult Discharge Plan - Plan Referrals: Paola Rushing, DENIAL RESOLUTION SPECIALIST [Advanced Practice Nurse] - 12/16/17 10:30 am
--- NOTE | 2017-12-07 11:06 | IR Procedure Note ---
Date of procedure: 12/07/17 Consent Obtained: Written consent Timeout: Correct patient and procedure verified, Correct site verified, Time out performed, Skin prep completed Indications: ascites Procedure Performed: paracentesis Was there an assistant professor of communication present: No Site/Technique: left abdomen Results/Findings: moderate ascites Estimated blood loss (cc): 0 Complications: None; Tolerated procedure well Post Procedure Treatment Plan: observation Specimen: abdominal fluid
--- NOTE | 2017-12-07 13:58 | Electrocardiograph Report ---
[address] [address] Test Date: 2017-12-06 Pat Name: Roman King Department: 103 Room: 2N06 Gender: M [employer] Manager: : [id number] Requested By: Rikki Lemons Order Number: [id number] Reading MD: Erin Cleaning Measurements Intervals [place] Rate: 62 P: 233 GA: 146 QRS: -71 QRSD: 218 T: 104 QT: 500 QTc: 506 Interpretive Statements ELECTRONIC ATRIAL PACEMAKER ELECTRONIC VENTRICULAR PACEMAKER ABNORMAL RHYTHM ECG Electronically Signed On 12-07-2017 13:57:13 EDT by Erin Cleaning
[2017-12-07] MEDS ORDERED: Albumin 25% 25gram/100mL 25 GM/100 ML IV.SOLN IVPB ONE (15:00)
--- NOTE | 2017-12-07 15:17 | Event Note ---
Date of Encounter: 12/07/17 Time of Encounter: 09:00 87 year old male with multiple medical problems, admitted with confusion, weakness, fall at home, noted to have hepatic encephalopathy/ascites/FILIBERTO. Seen and examined at bedside; reports feeling better, knew where he was; lives alone at home but does have supervision during the day; Chest -S1, S2 heard, irregular; lungs are clear to auscultation; Abdomen- tense ascites+ Hepatic encephalopathy- continue scheduled Lactulose; so far no BMs; monitor closely; Ascites and cirrhosis- he does have scheduled paracentesis every few weeks; consulted IR for U/S-guided paracentesis today; FILIBERTO on CKD- due to cirrhosis/ascites, use of diuretics; Nephrology on board; Weakness and fall- PT/OT consults; patient will benefit from placement;
[2017-12-07] MEDS: *HR* Heparin 5,000 UNIT/ML VIAL SQ SCH (17:32)
[2017-12-07] MEDS: Gabapentin 300 MG CAPSULE PO SCH (22:31)
[2017-12-08] MEDS: *HR* Heparin 5,000 UNIT/ML VIAL SQ SCH ×2 (06:25→17:05)
[2017-12-08 07:36] LABS: Basophils % 0.1 %; Eosinophils # 0.3 K/mcL (0.0-0.6); Hematocrit 29.7 % (37.5-50.1); Hemoglobin 10.1 g/dL (12.9-16.9); Immature Granulocytes % 0.5 % (0-4); Lymphocytes # 0.7 K/mcL (0.6-4.6); Lymphocytes % 7.8 %; Mean Corpuscular Hemoglobin 32.3 pg (28.0-33.3); Mean Corpuscular Volume 94.9 fL (83.0-100.0); Mean Platelet Volume 11.8 fL (9.4-12.4); Monocytes # 0.7 K/mcL (0.0-1.3); Monocytes % 8.8 %; Neutrophils # 6.7 K/mcL (1.6-8.9); Platelet Count 128 K/mcL (140-400); Red Blood Count 3.13 M/mcL (4.19-5.50); Red Cell Distribution Width 17.2 % (11.5-14.5); Segmented Neutrophils % 79.8 %
[2017-12-08 07:59] LABS: Calcium 8.7 mg/dL (8.6-10.3); Magnesium 2.4 mg/dL (1.6-2.6); Potassium 3.8 mEq/L (3.5-5.1)
[2017-12-08] MEDS: Multivit/Ca/Min/Fe/FA 1 TAB TABLET PO SCH (08:38)
[2017-12-08] MEDS: BuPROPion XL (24 HR) 150 MG TABLET PO SCH (08:38)
[2017-12-08] MEDS: Isosorbide MONOnitrate (24 HR) 30 MG TAB.ER.24H PO SCH (08:38)
[2017-12-08] MEDS: Lactulose Oral Soln 20 GM/30 ML UDC PO SCH ×3 (08:39→19:49)
[2017-12-08] MEDS: Insulin LISPRO 300 UNITS/3 ML VIAL SQ SCH ×4 (08:42→22:18)
--- NOTE | 2017-12-08 09:48 | Internal Med Progress Note ---
Date of Encounter: 12/08/17 Time of Encounter: 09:43 - Assessment and plan (1) Hepatic encephalopathy Current Visit: No Status: Resolved Assessment and plan: This patient has underlying liver cirrhosis. He got presently paracentesis. He got fluid resuscitation. He is treated with lactulose. His mental status is baseline again. (2) Acute kidney injury superimposed on chronic kidney disease Current Visit: No Status: Acute Assessment and plan: The patient has underlying COPD stage III. He developed acute kidney injury due to volume contraction. It is better after IV fluids. Nephrology is consulted. We will monitor his creatinine closely. (3) Chronic systolic heart failure Current Visit: Yes Status: Acute Assessment and plan: One can see that his echocardiogram from July 2016 showed ejection fraction of 35%. It also showed moderate mitral regurgitation and moderate to severe tricuspid regurgitation. Fluid management is crucial for this patient. We cannot use of CALVIN inhibitor/ARB's due to his increased creatinine. He has underlying CK disease stage III. (4) Ascites Current Visit: Yes Status: Resolved Assessment and plan: His ascites subsided after the paracentesis. We will be watching his input/ output closely. See nephrology notes. We cannot use aldosterone inhibitors due to his increased creatinine. The ascites is secondary to liver cirrhosis. It is also secondary to advanced systolic heart failure. Qualifiers: Ascites type: due to alcoholic cirrhosis Qualified Code(s): K70.31 - Alcoholic cirrhosis of liver with ascites (5) Anemia Current Visit: Yes Status: Acute Qualifiers: Anemia type: due to chronic kidney disease Chronic kidney disease stage: stage 3 (moderate) Qualified Code(s): N18.3 - Chronic kidney disease, stage 3 (moderate); D63.1 - Anemia in chronic kidney disease (6) Acute hypokalemia Current Visit: Yes Status: Acute (7) Chronic hyponatremia Current Visit: Yes Status: Chronic Assessment and plan: He is hyponatremia is chronic in nature. It is secondary to liver cirrhosis and chronic systolic heart failure. The patient will benefit from mild fluid restriction in the future. - Time Spent With Patient Total time spent is greater than 50% in coordination of care (as documented) at patient's floor/unit and/or counseling patient: 25 - 35 minutes - Subjective Interval history: The patient has improved quite a bit. He talked to me in the morning. He feels weak. He has not started any ambulation yet. He ate his breakfast. His last bowel movement was yesterday evening. He makes urine. He made 1280 mL of urine yesterday. Denies chest pain. Denies difficulty breathing. His abdomen is flat, after paracentesis he had recently. - Constitutional Vitals: Temp Pulse Resp BP Pulse Ox 97.6 F 62 17 127/68 96 12/08/17 09:00 12/08/17 09:00 12/08/17 09:00 12/08/17 09:00 12/08/17 09:00 General appearance: Present: A&O X 3, answers questions appropriately - Respiratory Respiratory exam: Present: CTAB. Absent: accessory muscle use, rales, rhonchi, wheezes - Cardiovascular Cardiovascular exam: Present: RRR, +S1, +S2. Absent: diastolic murmur, gallop, rubs, systolic murmur - GI/Abdominal GI/Abdominal exam: Present: normal bowel sounds, soft, no peritoneal signs. Absent: distended, tenderness - Skin Skin exam: Present: dry, intact Internal Medicine: Result - Labs CBC & Chem 7: 12/08/17 07:10 12/08/17 07:10 Labs: Short CBC 12/08/17 Range/Units 07:10 WBC 8.4 (4.3-11.1) K/mcL Hgb 10.1 L (12.9-16.9) g/dL Hct 29.7 L (37.5-50.1) % Plt Count 128 L (140-400) K/mcL Neutrophils # 6.7 (1.6-8.9) K/mcL BMP 12/08/17 07:10 Sodium 126 L Potassium 3.8 Chloride 92 L Carbon Dioxide 24 BUN 77 H Creatinine 3.05 H Glucose 106 H Calcium 8.7 Cardiac Enzymes 12/07/17 Range/Units 11:21 Troponin I 0.06 H* (< 0.04) ng/mL - ABG Interpretation ABG results: PT/INR, D-dimer PT 14.5 Seconds (9.4-12.1) H 12/06/17 22:37 - Impressions Impressions Retroperitoneum Ultrasound 12/07/17 13:30 IMPRESSION: Mildly increased parenchymal echogenicity may be seen with underlying medical renal disease. No hydronephrosis. No substantial change in right renal atrophy compared with the left. Distended urinary bladder with possible urinary bladder wall thickening. Consider correlation with urinalysis if there is concern for cystitis. D/ / 12/07/2017 15:15:07 Quinten Patel / gamaliel Interpreting Provider: Quinten Patel - VTE Documentation of Mechanical Device: Intermittent pneumatic compression device Consult Discharge Plan - Plan Referrals: Paola Rushing, EARLY CHILDHOOD LEAD TEACHER [Advanced Practice Nurse] - 12/16/17 10:30 am
--- NOTE | 2017-12-08 13:59 | Nephrology Progress Note ---
Date of Encounter: 12/08/17 Time of Encounter: 13:56 - Assessment and Plan (1) Acute kidney injury superimposed on chronic kidney disease Current Visit: No Status: Acute Continue to avoid nephrotoxins, renal dose medications. Scr 3.05 down from 3.51. GFR 20 up from 17 yesterday. (2) Altered mental status Current Visit: Yes Status: Acute Per primary team. Qualifiers: Altered mental status type: unspecified Qualified Code(s): R41.82 - Altered mental status, unspecified (3) Fall Current Visit: Yes Status: Acute Chair alarm on for safety. Qualifiers: Encounter type: initial encounter Qualified Code(s): W19.XXXA - Unspecified fall, initial encounter (4) Hypokalemia Current Visit: Yes Status: Acute Resolved, 3.8 today. Subjective Principal diagnosis: Fall Interval history: Pt seen and examined, in sitting in chair, chair alarm noted. Denies CP/SOB. Objective - Vital Signs Vital signs: Vital Signs Temp Pulse Resp BP Pulse Ox 12/08/17 11:19 97.4 F L 62 20 112/77 96 12/08/17 09:00 97.6 F 62 17 127/68 96 12/08/17 08:00 65 96 12/08/17 07:45 97.6 F 62 17 127/68 96 12/08/17 03:35 97.5 F L 64 18 120/68 93 12/07/17 23:25 97.8 F 64 18 125/63 95 12/07/17 19:09 97.5 F L 70 20 113/67 92 12/07/17 17:04 97.2 F L 63 19 127/62 95 Intake and Output 12/07/17 12/08/17 12/08/17 23:59 07:59 15:59 Intake Total 940 / 940 200 / 200 480 / 480 Output Total 575 / 575 100 / 100 120 / 120 Balance 365 / 365 100 / 100 360 / 360 Intake: Oral 940 / 940 200 / 200 480 / 480 Output: Urine 575 / 575 100 / 100 120 / 120 Other: Meal Dinner Lunch Percent of Meal Consumed 100% 100% Stool Size Small Stool Consistency formed Stool Color Brown # Bowel Movement Diapers 1 Weight 73.3 kg Blood Glucose* 120 136 142 - General Appearance General appearance: Present: chronically ill EENT: Present: ATNC, hearing intact, vision intact Neck: Present: supple Respiratory: Present: clear Cardiology: Present: normal S1, normal S2 Gastrointestinal: Present: normoactive bowel sounds, no tenderness, no guarding Integumentary: Present: no rash, warm and dry Neurologic: Present: confused, disoriented Psychiatric: Present: mood/affect appropriate, cooperative - Lab 12/08/17 07:10 12/08/17 07:10 Most recent lab results Calcium 8.7 mg/dL (8.6-10.3) 12/08/17 07:10 Magnesium 2.4 mg/dL (1.6-2.6) 12/08/17 07:10 - VTE Documentation of Mechanical Device: Intermittent pneumatic compression device Consult Discharge Plan - Plan Referrals: Paola Rushing, MEDICAID NURSE [Advanced Practice Nurse] - 12/16/17 10:30 am
[2017-12-08] MEDS: Gabapentin 300 MG CAPSULE PO SCH (19:48)
[2017-12-09] MEDS: *HR* Heparin 5,000 UNIT/ML VIAL SQ SCH ×2 (05:45→16:45)
[2017-12-09 07:11] LABS: Basophils % 0.2 %; Eosinophils # 0.4 K/mcL (0.0-0.6); Eosinophils % 4.2 %; Hemoglobin 9.8 g/dL (12.9-16.9); Immature Granulocytes % 0.5 % (0-4); Lymphocytes # 0.7 K/mcL (0.6-4.6); Lymphocytes % 8.8 %; Mean Corpuscular HGB Conc 33.8 g/dL (31.6-35.5); Mean Corpuscular Hemoglobin 32.2 pg (28.0-33.3); Mean Corpuscular Volume 95.4 fL (83.0-100.0); Monocytes # 0.7 K/mcL (0.0-1.3); Monocytes % 8.2 %; Neutrophils # 6.4 K/mcL (1.6-8.9); Platelet Count 127 K/mcL (140-400); Red Blood Count 3.04 M/mcL (4.19-5.50); Red Cell Distribution Width 17.1 % (11.5-14.5); Segmented Neutrophils % 78.1 %
[2017-12-09 07:22] LABS: Calcium 8.5 mg/dL (8.6-10.3)
--- NOTE | 2017-12-09 08:57 | Nephrology Progress Note ---
Date of Encounter: 12/09/17 Time of Encounter: 08:55 - Assessment and Plan (1) Acute kidney injury superimposed on chronic kidney disease Current Visit: No Status: Acute Continue to avoid nephrotoxins, renal dose medications. FILIBERTO is improving. Scr 2.71 down from 3.05. GFR 22 up from 20 yesterday. (2) Altered mental status Current Visit: Yes Status: Acute Per primary team. Qualifiers: Altered mental status type: unspecified Qualified Code(s): R41.82 - Altered mental status, unspecified (3) Fall Current Visit: Yes Status: Acute Chair alarm on for safety. Qualifiers: Encounter type: initial encounter Qualified Code(s): W19.XXXA - Unspecified fall, initial encounter (4) Hypokalemia Current Visit: Yes Status: Acute Resolved, 4.0 today. Subjective Principal diagnosis: Fall Interval history: Pt seen and examined, in sitting in chair eating breakfast, chair alarm noted. Denies CP/SOB. Objective - Vital Signs Vital signs: Vital Signs Temp Pulse Resp BP Pulse Ox 12/09/17 06:55 97.4 F L 62 19 111/56 98 12/09/17 03:42 96.6 F L 61 16 114/59 97 12/08/17 23:35 96.8 F L 63 16 122/60 98 12/08/17 19:20 96.9 F L 60 16 120/69 99 12/08/17 16:00 98.0 F 65 19 118/74 98 12/08/17 11:19 97.4 F L 62 20 112/77 96 12/08/17 09:00 97.6 F 62 17 127/68 96 Intake and Output 12/08/17 12/09/17 12/09/17 23:59 07:59 15:59 Intake Total 340 / 340 900 / 900 Output Total 400 / 400 140 / 140 Balance -60 / -60 760 / 760 Intake: Oral 340 / 340 900 / 900 Output: Urine 400 / 400 140 / 140 Other: Meal Dinner Percent of Meal Consumed 100% Blood Glucose* 142 111 - General Appearance General appearance: Present: chronically ill, frail EENT: Present: hearing intact, vision intact Respiratory: Present: clear Cardiology: Present: edema, normal S1, normal S2 Gastrointestinal: Present: normoactive bowel sounds, no tenderness, no guarding Integumentary: Present: no rash, warm and dry Neurologic: Present: alert and oriented x3 (Slightly confused at times.) Psychiatric: Present: mood/affect appropriate, cooperative - Lab 12/09/17 06:44 12/09/17 06:44 Most recent lab results Calcium 8.5 mg/dL (8.6-10.3) L 12/09/17 06:44 Magnesium 2.4 mg/dL (1.6-2.6) 12/08/17 07:10 - VTE Documentation of Mechanical Device: Intermittent pneumatic compression device Consult Discharge Plan - Plan Referrals: Paola Rushing, CATTYMAN [Advanced Practice Nurse] - 12/16/17 10:30 am
[2017-12-09] MEDS: Insulin LISPRO 300 UNITS/3 ML VIAL SQ SCH ×3 (09:09→16:45)
[2017-12-09] MEDS: Isosorbide MONOnitrate (24 HR) 30 MG TAB.ER.24H PO SCH (09:22)
[2017-12-09] MEDS: Lactulose Oral Soln 20 GM/30 ML UDC PO SCH ×2 (09:22→16:45)
[2017-12-09] MEDS: Multivit/Ca/Min/Fe/FA 1 TAB TABLET PO SCH (09:22)
[2017-12-09] MEDS: BuPROPion XL (24 HR) 150 MG TABLET PO SCH (09:24)
--- NOTE | 2017-12-09 18:33 | Discharge Summary ---
Orders not resulted at time of discharge: Pending orders 12/07/17 16:27 Sodium, Urine [UCHEM] Routine Urine Protein Creat Ratio [place] [UCHEM] Routine 12/08/17 04:00 Osmolality,Urine [UCHEM] AM 0400 12/10/17 04:00 BMP [Basic Metabolic Panel] AM 0400 Date of Encounter: 12/09/17 Time of Encounter: 18:35 - Discharge Diagnosis (1) Acute kidney injury superimposed on chronic kidney disease Status: Acute (2) Ascites Status: Resolved Qualifiers: Ascites type: due to alcoholic cirrhosis Qualified Code(s): K70.31 - Alcoholic cirrhosis of liver with ascites (3) Chronic systolic heart failure Status: Acute (4) Anemia Status: Acute Qualifiers: Anemia type: due to chronic kidney disease Chronic kidney disease stage: stage 3 (moderate) Qualified Code(s): N18.3 - Chronic kidney disease, stage 3 (moderate); D63.1 - Anemia in chronic kidney disease (5) Acute hypokalemia Status: Acute (6) Chronic hyponatremia Status: Chronic Hospital course: Mr. King is a 87 year old male Discharge discussed with: patient, nurse - Time Spent with Patient Total time spent providing and/or coordinating discharge services: Greater than 30 minutes - Discharge Medications Home Medications: Gabapentin [Neurontin] 600 mg PO HS 06/08/15 [History] Garlic 1,000 mg PO DAILY 06/08/15 [History] Multivitamin [Flintstones] 1 tab PO DAILY 06/08/15 [History] Montelukast [Singulair] 10 mg PO HS 11/05/15 [History] Tamsulosin [Flomax] 0.4 mg PO BID 01/27/17 [History] Ferrous Sulfate 325 mg PO DAILY 04/08/17 [History] Loratadine [Claritin] 10 mg PO DAILY 04/08/17 [History] Spironolactone [Aldactone] 50 mg PO DAILY 04/08/17 [History] Isosorbide MONOnitrate (24 HR) [Imdur] 30 mg PO DAILY 06/20/17 [History] Omeprazole [PriLOSEC] 20 mg PO BIDAC #60 thomas. 10/21/17 [Rx] Sucralfate [Carafate] 1 gm PO QIDAC #30 udc 10/21/17 [Rx] Atorvastatin [Lipitor] 40 mg PO HS 12/07/17 [History] BuPROPion XL (24 HR) [Wellbutrin Xl] 150 mg PO DAILY 12/07/17 [History] Metoprolol [Lopressor] 50 mg PO BID 12/07/17 [History] [place]-3/Dha/Epa/Fish Oil [Fish Oil 1,000 mg Softgel] 1 cap PO DAILY 12/07/17 [ History] Lactulose 20 gm PO TID udc 12/09/17 [Rx] Allergies/Adverse Reactions: 3 Allergy/AdvReac Type Severity Reaction Status Date / Time clopidogrel [From Plavix] Allergy Itching Verified 12/03/16 19:46 Cortisone Allergy Joint Pain Verified 12/03/16 19:46 Date of admission: 12/07/17 02:45 Primary care physician: Roberta Berrios, Consults: 12/07/17 05:11 Consult to Home Care Aide [CONS] Routine Reason for SW Consult: Living conditions. Pt lives at home alone Discharging clinician: Bolivar Taylor Anticipated date of discharge: 12/09/17 - Constitutional Vitals: Temp Pulse Resp BP Pulse Ox 97.9 F 65 18 125/62 97 12/09/17 16:10 12/09/17 16:10 12/09/17 16:10 12/09/17 16:10 12/09/17 16:10 General appearance: Present: A&O X 3, answers questions appropriately - Respiratory Respiratory exam: Present: CTAB. Absent: rales, rhonchi, wheezes - Cardiovascular Cardiovascular exam: Present: RRR. Absent: diastolic murmur, gallop, systolic murmur - GI/Abdominal GI/Abdominal exam: Present: soft. Absent: mass, splenomegaly - Skin Skin exam: Present: dry, intact - Patient Status Disposition: Transfer SNF Condition: Good - Discharge Instructions Follow Up With: Paola Rushing, SOLUTION [employer]ER [Advanced Practice Nurse] - 12/16/17 10:30 am Henrik Owen DO [Partnered Physician] - - VTE Documentation of Mechanical Device: Intermittent pneumatic compression device
--- NOTE | 2017-12-09 18:55 | Physician Discharge Referral ---
ExtendedCare Referral Info Transfer To: SNF Provider in Charge: Darius LE MD Provider in Charge after Transfer: PCP Institutional Level of Care: Skilled - Diagnosis (1) Acute kidney injury superimposed on chronic kidney disease Status: Acute (2) Ascites Status: Resolved (3) Chronic systolic heart failure Status: Acute (4) Anemia Status: Acute (5) Acute hypokalemia Status: Acute (6) Chronic hyponatremia Status: Chronic - Transfer Medications Home Medications: Gabapentin [Neurontin] 600 mg PO HS 06/08/15 [History] Garlic 1,000 mg PO DAILY 06/08/15 [History] Multivitamin [Flintstones] 1 tab PO DAILY 06/08/15 [History] Montelukast [Singulair] 10 mg PO HS 11/05/15 [History] Tamsulosin [Flomax] 0.4 mg PO BID 01/27/17 [History] Ferrous Sulfate 325 mg PO DAILY 04/08/17 [History] Loratadine [Claritin] 10 mg PO DAILY 04/08/17 [History] Spironolactone [Aldactone] 50 mg PO DAILY 04/08/17 [History] Isosorbide MONOnitrate (24 HR) [Imdur] 30 mg PO DAILY 06/20/17 [History] Omeprazole [PriLOSEC] 20 mg PO BIDAC #60 capsule. 10/21/17 [Rx] Sucralfate [Carafate] 1 gm PO QIDAC #30 udc 10/21/17 [Rx] Atorvastatin [Lipitor] 40 mg PO HS 12/07/17 [History] BuPROPion XL (24 HR) [Wellbutrin Xl] 150 mg PO DAILY 12/07/17 [History] Metoprolol [Lopressor] 50 mg PO BID 12/07/17 [History] [place]-3/Dha/Epa/Fish Oil [Fish Oil 1,000 mg Softgel] 1 cap PO DAILY 12/07/17 [ History] Lactulose 20 gm PO TID udc 12/09/17 [Rx] Allergies/Adverse Reactions: 3 Allergy/AdvReac Type Severity Reaction Status Date / Time clopidogrel [From Plavix] Allergy Itching Verified 12/03/16 19:46 Cortisone Allergy Joint Pain Verified 12/03/16 19:46 - Respiratory Orders Smoking Cessation: Smoking cessation has been advised. For more information, call the [place] Tobacco Quit Line at 5-107-WNLO-NOW. CERTIFICATION: I certify that the transfer of the above named patient to an Extended Care Facility is necessary for the continuing treatment of the diagnosis listed. The above information is true and accurate reflection of patient's current condition. Confidential - Redisclosure prohibited without a patient's written consent.
[2017-12-09 19:08] VITALS: BP 127/65
== END 2017-12-09 19:39 | DRG 433 ==
LOC: EMEROO 21:53 → SUATTDRO 12-07 02:45 → 2NNU 12-07 02:45
PROVIDERS: ADMIT Internal Medicine; ATTEND Internal Medicine

== ENCOUNTER 2017-12-21 13:19 | Observation (INO) ==
[2017-12-21 13:48] LABS: Bilirubin,Urine Negative (Negative); Blood,Urine Negative (Negative); Clarity,Urine Cloudy (Clear); Color,Urine Yellow (Yellow); Glucose,Urine (UA) Normal (Normal); Ketones,Urine Negative (Negative); Leukocyte Esterase,Urine Large (Negative); Nitrite,Urine Negative (Negative); Protein,Urine Negative (Neg-Trace); Specific Gravity,Urine 1.012 (1.010-1.025); Urobilinogen,Urine Normal (Normal)
[2017-12-21 13:49] LABS: Basophils % 0.4 %; Eosinophils # 0.3 K/mcL (0.0-0.6); Eosinophils % 3.4 %; Hematocrit 32.1 % (37.5-50.1); Hemoglobin 10.1 g/dL (12.9-16.9); Immature Granulocytes % 0.4 % (0-4); Lymphocytes # 0.7 K/mcL (0.6-4.6); Lymphocytes % 8.4 %; Mean Corpuscular HGB Conc 31.5 g/dL (31.6-35.5); Mean Corpuscular Hemoglobin 31.2 pg (28.0-33.3); Mean Corpuscular Volume 99.1 fL (83.0-100.0); Mean Platelet Volume 11.6 fL (9.4-12.4); Monocytes # 0.7 K/mcL (0.0-1.3); Monocytes % 8.4 %; Neutrophils # 6.1 K/mcL (1.6-8.9); Platelet Count 117 K/mcL (140-400); Red Blood Count 3.24 M/mcL (4.19-5.50); Red Cell Distribution Width 17.5 % (11.5-14.5)
[2017-12-21 13:51] LABS: Bacteria,Urine None Seen per hpf (None-Few); Hyaline Casts,Urine None Seen per lpf (None-Few); RBC,Urine 0-3 per hpf (0-3); Squamous Epithelial Cell,Urine None Seen per lpf (None-Few); WBC,Urine 50-100 per hpf (0-3)
[2017-12-21 13:57] LABS: INR 1.3
[2017-12-21 14:00] LABS: Activated Partial Thrombo Time 39.7 Seconds (26.0-36.0)
[2017-12-21] MEDS ORDERED: Furosemide 40 MG/4 ML VIAL IVP ONE (14:13)
[2017-12-21 14:14] LABS: Troponin I 0.04 ng/mL (< 0.04)
[2017-12-21 14:20] LABS: Albumin 3.3 g/dL (3.5-5.7); Albumin/Globulin Ratio 0.9 (1.1-2.2); Bilirubin,Direct 0.5 mg/dL (0.0-0.2); Bilirubin,Indirect 0.4 mg/dL (0.0-1.2); Bilirubin,Total 0.9 mg/dL (0.3-1.0); Globulin 3.7 g/dL (2.4-3.5)
[2017-12-21 14:23] LABS: Potassium 4.5 mEq/L (3.5-5.1)
--- NOTE | 2017-12-21 14:35 | Emergency Department Note ---
Disposition Clinical Impression: Acute dyspnea, CKD (chronic kidney disease), stage III CHF (congestive heart failure) Qualifiers: Heart failure type: unspecified Heart failure chronicity: acute on chronic Qualified Code(s): I50.9 - Heart failure, unspecified Disposition: Admitted As Inpatient Condition: Undetermined Referrals: Roberta Berrios MD [Primary Care Provider] - Forms: ED Satisfaction Letter, Work/School Release Time of Disposition: 15:00 General Adult HPI - General Chief complaint: ED Abdominal Pain Stated complaint: Retaining Fluid Time Seen by Provider: 12/21/17 13:22 Source: patient, EMS, other Mode of arrival: EMS Limitations: no limitations Nursing Notes Reviewed: Yes Vital Signs Reviewed: Yes - History of Present Illness HPI Narrative: 87-year-old male who is very hard of hearing arrives to the emergency department after dialysis today. The patient received dialysis at the [facility]. Labs were rechecked after dialysis which noted a hemoglobin of 6.0. At that time the patient was transported to the emergency department for evaluation. The patient is mildly altered in mentation but it appears to be more difficulty in hearing associated with it. The patient is a recheck of his hemoglobin here is 10.1. He denies any complaints at this time. The patient does have a distended abdomen with an umbilical hernia that is protruding. His abdomen remained soft and nontender. He denies any specific complaints but again is very difficult in hearing which is difficult to discern with comprehension versus actual hearing. After apparent further questioning the patient actually does not receive dialysis despite a report prior to transport stating the patient receives dialysis. Pain Scale: 4 - Related Data Home Medications Medication Instructions Recorded Confirmed Gabapentin [Neurontin] 600 mg PO HS 06/08/15 12/21/17 Multivitamin [Flintstones] 1 tab PO DAILY 06/08/15 12/21/17 Montelukast [Singulair] 10 mg PO HS 11/05/15 12/21/17 Tamsulosin [Flomax] 0.4 mg PO BID 01/27/17 12/21/17 Ferrous Sulfate 325 mg PO DAILY 04/08/17 12/21/17 Loratadine [Claritin] 10 mg PO DAILY 04/08/17 12/21/17 Spironolactone [Aldactone] 50 mg PO DAILY 04/08/17 12/21/17 Isosorbide MONOnitrate (24 HR) 30 mg PO DAILY 06/20/17 12/21/17 [Imdur] Atorvastatin [Lipitor] 40 mg PO HS 12/07/17 12/21/17 BuPROPion XL (24 HR) [Wellbutrin 150 mg PO DAILY 12/07/17 12/21/17 Xl] Metoprolol [Lopressor] 50 mg PO BID 12/07/17 12/21/17 [place]-3/Dha/Epa/Fish Oil [Fish Oil 1 cap PO DAILY 12/07/17 12/21/17 1,000 mg Softgel] Furosemide [Lasix] 80 mg PO DAILY 12/21/17 12/21/17 metOLazone [Zaroxolyn] 2.5 mg PO DAILY 12/21/17 12/21/17 Previous Rx's Medication Instructions Recorded Omeprazole [PriLOSEC] 20 mg PO BIDAC #60 capsule. 10/21/17 Sucralfate [Carafate] 1 gm PO QIDAC #30 udc 10/21/17 Allergies Allergy/AdvReac Type Severity Reaction Status Date / Time clopidogrel [From Plavix] Allergy Itching Verified 12/21/17 15:14 Cortisone Allergy Joint Pain Verified 12/21/17 15:14 All systems ED: reviewed and negative except as stated. Constitutional: Denies: fever, chills, weakness ENT ED: Denies: congestion Cardiovascular: Denies: chest pain Respiratory: Denies: dyspnea Gastrointestinal: Denies: abdominal pain, nausea, vomiting Musculoskeletal: Denies: back pain Integumentary: Denies: rash Neurological: Reports: confusion. Denies: headache Past Medical History - Past Medical History Source: old records reviewed, nursing notes reviewed Medical history: Reports: atrial fibrillation, cirrhosis, CHF, coronary artery disease, hyperlipidemia, hypertension, liver disease, myocardial infarction, peripheral artery disease, renal disease, valvular heart disease, other Surgical history: Reports: angioplasty/stent, carotid endarterectomy, coronary bypass (CABG), pacemaker/AICD, vascular surgery, other, pacemaker Psychiatric history: Reports: depression - Social History Smoking Status: Never smoker Smokeless Tobacco Status: No Alcohol use: Reports: none Drug use: Reports: none Physical Exam - General Limitations: no limitations General appearance: alert, in no apparent distress - Head Head exam: atraumatic, normocephalic, normal inspection - Eye Eye exam: Present: normal appearance, PERRL, EOMI - ENT ENT exam: normal exam, normal oropharynx, mucous membranes moist - Neck Neck exam: Present: normal inspection, full ROM, trachea midline - Chest Chest inspection: Present: normal inspection, symmetric chest wall rise, other ( Port on left chest wall) - Respiratory Respiratory exam: Present: other (Coarse breath sounds) - Cardiovascular Cardiovascular exam: Present: regular rate, normal rhythm, normal heart sounds - Abdominal Exam Abdominal exam: Present: soft, Non-Tender, distention, hernia (umbilical, easily reducible). Absent: tenderness, guarding, rebound, rigidity - Extremities Exam Extremities exam: Present: normal inspection, full ROM. Absent: tenderness, pedal edema - Neurological Exam Neurological exam: Present: alert - Expanded Neurological Exam Patient oriented to: Present: person Speech: Present: fluid speech Cranial nerves: EOM function (II, III, IV, ): Normal, facial sensation (V): Normal, facial palsy (VII): Normal Motor strength - LUE: 3/5 Motor strength - RUE: 3/5 Motor strength - LLE: 3/5 Motor strength - RLE: 3/5 Coma Scale Eye Opening: To Voice Coma Scale Motor Response: Obeys Commands Coma Scale Verbal Response: Confused Coma Scale Total: 13 - Skin Skin exam: Present: warm, dry, intact, normal color Course - Consultations Consultation #1: We spoke to Dr. Soriano who will set up dialysis for patient upon admission. Time: 15:00 Consultation #2: Further questioning reveals the patient does not actually received dialysis. This was confirmed by nephrology at bedside. Time: 15:22 Vital Signs Temperature 96.8 F L 12/21/17 13:21 Pulse Rate 64 12/21/17 13:21 Respiratory Rate 20 12/21/17 13:21 Blood Pressure 135/69 12/21/17 13:21 O2 Sat by Pulse Oximetry 97 12/21/17 13:21 Temperature 96.8 F L 12/21/17 13:21 Pulse Rate 64 12/21/17 13:21 Respiratory Rate 20 12/21/17 13:21 Blood Pressure 135/69 12/21/17 13:21 O2 Sat by Pulse Oximetry 97 12/21/17 13:21 Oxygen Delivery Oxygen Delivery Room Air Medical Decision Making - MDM Narrative Medical decision making narrative: Patient's workup in the emergency department demonstrates findings consistent with expected values. The patient's BNP is elevated which seems consistent but is a little bit more elevated than his baseline. The patient does have a large amount of fluid within his abdomen. He is nontender to palpation. Patient is of vascular congestion changes found on chest x-ray as well. The patient is anemic but his hemoglobin is 10.1. The patient remains concern for alteration in mentation and given the patient's recent dialysis with mental status combined with his concern for anemia, we will admit the patient to the hospital at this time. The patient was made aware and agrees to plan. No further questions or concerns noted. Accepted by Dr. Padilla - Lab Data Lab results reviewed: Yes I reviewed the patient's lab results. Result diagrams: 12/21/17 13:32 12/21/17 13:32 Lab Results 12/21/17 12/21/17 12/21/17 Range/Units 13:32 13:32 13:32 WBC (4.3-11.1) K/mcL RBC (4.19-5.50) M/mcL Hgb (12.9-16.9) g/dL Hct (37.5-50.1) % MCV (83.0-100.0) fL MCH (28.0-33.3) pg MCHC (31.6-35.5) g/dL RDW (11.5-14.5) % Plt Count (140-400) K/mcL MPV (9.4-12.4) fL Immature Gran % (0-4) % Seg Neutrophils % % Lymphocytes % % Monocytes % % Eosinophils % % Basophils % % Neutrophils # (1.6-8.9) K/mcL Lymphocytes # (0.6-4.6) K/mcL Monocytes # (0.0-1.3) K/mcL Eosinophils # (0.0-0.6) K/mcL Basophils # (0.0-0.2) K/mcL PT 14.0 H (9.4-12.1) Seconds INR 1.3 APTT 39.7 H (26.0-36.0) Seconds Sodium (136-145) mEq/L Potassium (3.5-5.1) mEq/L Chloride (98-107) mEq/L Carbon Dioxide (23-29) mEq/L BUN (8-23) mg/dL Creatinine (0.70-1.30) mg/dL Est GFR ( Amer) (> 60) Est GFR (Non-Af Amer) (> 60) BUN/Creatinine Ratio (6-26) Glucose (70-105) mg/dL Calculated Osmolality (280-300) Calcium (8.6-10.3) mg/dL Total Bilirubin 0.9 (0.3-1.0) mg/dL Direct Bilirubin 0.5 H (0.0-0.2) mg/dL Indirect Bilirubin 0.4 (0.0-1.2) mg/dL AST 24 (13-39) Units/L ALT 11 (7-52) Units/L Alkaline Phosphatase 155 H (34-104) Units/L Troponin I (< 0.04) ng/mL B-Natriuretic Peptide 2106 H (Less than 100) pg/mL Serum Total Protein 7.0 (6.4-8.9) g/dL Albumin 3.3 L (3.5-5.7) g/dL Globulin 3.7 H (2.4-3.5) g/dL Albumin/Globulin Ratio 0.9 L (1.1-2.2) Lipase 52 (11-82) Units/L Urine Color (Yellow) Urine Clarity (Clear) Urine pH (5.0-8.0) pH Units Ur Specific [place] (1.010-1.025) Urine Protein (Neg-Trace) mg/dL Urine Glucose (UA) (Normal) mg/dL Urine Ketones (Negative) mg/dL Urine Blood (Negative) Urine Nitrite (Negative) Urine Bilirubin (Negative) Urine Urobilinogen (Normal) mg/dL Ur Leukocyte Esterase (Negative) Urine Microscopic RBC (0-3) per hpf Urine Microscopic WBC (0-3) per hpf Ur Squamous Epith Cells (None-Few) per lpf Urine Bacteria (None-Few) per hpf Hyaline Casts (None-Few) per lpf Ur Culture Indicated? (NO) Blood Type Antibody Screen 12/21/17 12/21/17 12/21/17 Range/Units 13:32 13:32 13:33 WBC 7.8 (4.3-11.1) K/mcL RBC 3.24 L (4.19-5.50) M/mcL Hgb 10.1 L (12.9-16.9) g/dL Hct 32.1 L (37.5-50.1) % MCV 99.1 (83.0-100.0) fL MCH 31.2 (28.0-33.3) pg MCHC 31.5 L (31.6-35.5) g/dL RDW 17.5 H (11.5-14.5) % Plt Count 117 L (140-400) K/mcL MPV 11.6 (9.4-12.4) fL Immature Gran % 0.4 (0-4) % Seg Neutrophils % 79.0 % Lymphocytes % 8.4 % Monocytes % 8.4 % Eosinophils % 3.4 % Basophils % 0.4 % Neutrophils # 6.1 (1.6-8.9) K/mcL Lymphocytes # 0.7 (0.6-4.6) K/mcL Monocytes # 0.7 (0.0-1.3) K/mcL Eosinophils # 0.3 (0.0-0.6) K/mcL Basophils # 0.0 (0.0-0.2) K/mcL PT (9.4-12.1) Seconds INR APTT (26.0-36.0) Seconds Sodium 133 L (136-145) mEq/L Potassium 4.5 (3.5-5.1) mEq/L Chloride 101 (98-107) mEq/L Carbon Dioxide 22 L (23-29) mEq/L BUN 55 H (8-23) mg/dL Creatinine 2.64 H (0.70-1.30) mg/dL Est GFR ( Amer) 28 L (> 60) Est GFR (Non-Af Amer) 23 L (> 60) BUN/Creatinine Ratio 21 (6-26) Glucose 96 (70-105) mg/dL Calculated Osmolality 291 (280-300) Calcium 9.0 (8.6-10.3) mg/dL Total Bilirubin (0.3-1.0) mg/dL Direct Bilirubin (0.0-0.2) mg/dL Indirect Bilirubin (0.0-1.2) mg/dL AST (13-39) Units/L ALT (7-52) Units/L Alkaline Phosphatase (34-104) Units/L Troponin I 0.04 H* (< 0.04) ng/mL B-Natriuretic Peptide (Less than 100) pg/mL Serum Total Protein (6.4-8.9) g/dL Albumin (3.5-5.7) g/dL Globulin (2.4-3.5) g/dL Albumin/Globulin Ratio (1.1-2.2) Lipase (11-82) Units/L Urine Color Yellow (Yellow) Urine Clarity Cloudy A (Clear) Urine pH 6.0 (5.0-8.0) pH Units Ur Specific [place] 1.012 (1.010-1.025) Urine Protein Negative (Neg-Trace) mg/dL Urine Glucose (UA) Normal (Normal) mg/dL Urine Ketones Negative (Negative) mg/dL Urine Blood Negative (Negative) Urine Nitrite Negative (Negative) Urine Bilirubin Negative (Negative) Urine Urobilinogen Normal (Normal) mg/dL Ur Leukocyte Esterase Large H (Negative) Urine Microscopic RBC 0-3 (0-3) per hpf Urine Microscopic WBC 50-100 H (0-3) per hpf Ur Squamous Epith Cells None Seen (None-Few) per lpf Urine Bacteria None Seen (None-Few) per hpf Hyaline Casts None Seen (None-Few) per lpf Ur Culture Indicated? YES A (NO) Blood Type Antibody Screen 12/21/17 Range/Units 13:43 WBC (4.3-11.1) K/mcL RBC (4.19-5.50) M/mcL Hgb (12.9-16.9) g/dL Hct (37.5-50.1) % MCV (83.0-100.0) fL MCH (28.0-33.3) pg MCHC (31.6-35.5) g/dL RDW (11.5-14.5) % Plt Count (140-400) K/mcL MPV (9.4-12.4) fL Immature Gran % (0-4) % Seg Neutrophils % % Lymphocytes % % Monocytes % % Eosinophils % % Basophils % % Neutrophils # (1.6-8.9) K/mcL Lymphocytes # (0.6-4.6) K/mcL Monocytes # (0.0-1.3) K/mcL Eosinophils # (0.0-0.6) K/mcL Basophils # (0.0-0.2) K/mcL PT (9.4-12.1) Seconds INR APTT (26.0-36.0) Seconds Sodium (136-145) mEq/L Potassium (3.5-5.1) mEq/L Chloride (98-107) mEq/L Carbon Dioxide (23-29) mEq/L BUN (8-23) mg/dL Creatinine (0.70-1.30) mg/dL Est GFR ( Amer) (> 60) Est GFR (Non-Af Amer) (> 60) BUN/Creatinine Ratio (6-26) Glucose (70-105) mg/dL Calculated Osmolality (280-300) Calcium (8.6-10.3) mg/dL Total Bilirubin (0.3-1.0) mg/dL Direct Bilirubin (0.0-0.2) mg/dL Indirect Bilirubin (0.0-1.2) mg/dL AST (13-39) Units/L ALT (7-52) Units/L Alkaline Phosphatase (34-104) Units/L Troponin I (< 0.04) ng/mL B-Natriuretic Peptide (Less than 100) pg/mL Serum Total Protein (6.4-8.9) g/dL Albumin (3.5-5.7) g/dL Globulin (2.4-3.5) g/dL Albumin/Globulin Ratio (1.1-2.2) Lipase (11-82) Units/L Urine Color (Yellow) Urine Clarity (Clear) Urine pH (5.0-8.0) pH Units Ur Specific [place] (1.010-1.025) Urine Protein (Neg-Trace) mg/dL Urine Glucose (UA) (Normal) mg/dL Urine Ketones (Negative) mg/dL Urine Blood (Negative) Urine Nitrite (Negative) Urine Bilirubin (Negative) Urine Urobilinogen (Normal) mg/dL Ur Leukocyte Esterase (Negative) Urine Microscopic RBC (0-3) per hpf Urine Microscopic WBC (0-3) per hpf Ur Squamous Epith Cells (None-Few) per lpf Urine Bacteria (None-Few) per hpf Hyaline Casts (None-Few) per lpf Ur Culture Indicated? (NO) Blood Type O POSITIVE Antibody Screen NEGATIVE - Radiology Data Radiology results reviewed: Yes I reviewed the patient's radiology results. Chest X-Ray 12/21/17 13:23 IMPRESSION: 1. Mild vascular congestive changes. 2. Low lung volumes with under aeration of the lung bases. D/ / 12/21/2017 14:33:20 Prakash Spears MD / ofelia Interpreting Provider: Prakash Spears MD - EKG Data EKG #1 EKG attestation: Yes I reviewed and interpreted this EKG. EKG results narrative: Heart rate 64 beats for minute. Electronic ventricular pacemaker. No ST elevation or ST depression noted. EKG similar appearance EKG from 12/06/2017. No acute changes noted.
--- NOTE | 2017-12-21 14:37 | Emergency Department Note ---
Disposition Clinical Impression: CHF (congestive heart failure) Qualifiers: Heart failure type: unspecified Heart failure chronicity: acute on chronic Qualified Code(s): I50.9 - Heart failure, unspecified Disposition: Admitted As Inpatient Referrals: Roberta Berrios MD [Primary Care Provider] - Forms: ED Satisfaction Letter, Work/School Release General Adult HPI - General Chief complaint: ED Abdominal Pain Stated complaint: Retaining Fluid Time Seen by Provider: 12/21/17 13:22 Source: patient, EMS, other Mode of arrival: EMS Limitations: no limitations - History of Present Illness Pain Scale: 4 - Related Data Home Medications Medication Instructions Recorded Confirmed Gabapentin [Neurontin] 600 mg PO HS 06/08/15 12/07/17 Garlic 1,000 mg PO DAILY 06/08/15 12/07/17 Multivitamin [Flintstones] 1 tab PO DAILY 06/08/15 12/07/17 Montelukast [Singulair] 10 mg PO HS 11/05/15 12/07/17 Tamsulosin [Flomax] 0.4 mg PO BID 01/27/17 12/07/17 Ferrous Sulfate 325 mg PO DAILY 04/08/17 12/07/17 Loratadine [Claritin] 10 mg PO DAILY 04/08/17 12/07/17 Spironolactone [Aldactone] 50 mg PO DAILY 04/08/17 12/07/17 Isosorbide MONOnitrate (24 HR) 30 mg PO DAILY 06/20/17 12/07/17 [Imdur] Atorvastatin [Lipitor] 40 mg PO HS 12/07/17 12/07/17 BuPROPion XL (24 HR) [Wellbutrin 150 mg PO DAILY 12/07/17 12/07/17 Xl] Metoprolol [Lopressor] 50 mg PO BID 12/07/17 12/07/17 [place]-3/Dha/Epa/Fish Oil [Fish Oil 1 cap PO DAILY 12/07/17 12/07/17 1,000 mg Softgel] Previous Rx's Medication Instructions Recorded Omeprazole [PriLOSEC] 20 mg PO BIDAC #60 capsule. 10/21/17 Sucralfate [Carafate] 1 gm PO QIDAC #30 udc 10/21/17 Lactulose 20 gm PO TID [facility] [place]17 Allergies Allergy/AdvReac Type Severity Reaction Status Date / Time clopidogrel [From Plavix] Allergy Itching Verified 12/03/16 19:46 Cortisone Allergy Joint Pain Verified 12/03/16 19:46 Constitutional: Denies: fever, chills, weakness ENT ED: Denies: congestion Cardiovascular: Denies: chest pain Respiratory: Denies: dyspnea Gastrointestinal: Denies: abdominal pain, nausea, vomiting Musculoskeletal: Denies: back pain Integumentary: Denies: rash Neurological: Reports: confusion. Denies: headache Past Medical History - Past Medical History Medical history: Reports: atrial fibrillation, cirrhosis, CHF, coronary artery disease, hyperlipidemia, hypertension, liver disease, myocardial infarction, peripheral artery disease, renal disease, valvular heart disease, other Surgical history: Reports: angioplasty/stent, carotid endarterectomy, coronary bypass (CABG), pacemaker/AICD, vascular surgery, other, pacemaker Psychiatric history: Reports: depression - Social History Smoking Status: Never smoker Smokeless Tobacco Status: No Alcohol use: Reports: none Drug use: Reports: none Physical Exam - General Limitations: no limitations General appearance: alert, in no apparent distress Course Vital Signs Temperature 96.8 F L 12/21/17 13:21 Pulse Rate 64 12/21/17 13:21 Respiratory Rate 20 12/21/17 13:21 Blood Pressure 135/69 12/21/17 13:21 O2 Sat by Pulse Oximetry 97 12/21/17 13:21 Temperature 96.8 F L 12/21/17 13:21 Pulse Rate 64 12/21/17 13:21 Respiratory Rate 20 12/21/17 13:21 Blood Pressure 135/69 12/21/17 13:21 O2 Sat by Pulse Oximetry 97 12/21/17 13:21 Oxygen Delivery Oxygen Delivery Room Air Medical Decision Making - Lab Data Result diagrams: 12/21/17 13:32 12/21/17 13:32 Lab Results 12/21/17 12/21/17 12/21/17 Range/Units 13:32 13:32 13:32 WBC (4.3-11.1) K/mcL RBC (4.19-5.50) M/mcL Hgb (12.9-16.9) g/dL Hct (37.5-50.1) % MCV (83.0-100.0) fL MCH (28.0-33.3) pg MCHC (31.6-35.5) g/dL RDW (11.5-14.5) % Plt Count (140-400) K/mcL MPV (9.4-12.4) fL Immature Gran % (0-4) % Seg Neutrophils % % Lymphocytes % % Monocytes % % Eosinophils % % Basophils % % Neutrophils # (1.6-8.9) K/mcL Lymphocytes # (0.6-4.6) K/mcL Monocytes # (0.0-1.3) K/mcL Eosinophils # (0.0-0.6) K/mcL Basophils # (0.0-0.2) K/mcL PT 14.0 H (9.4-12.1) Seconds INR 1.3 APTT 39.7 H (26.0-36.0) Seconds Sodium (136-145) mEq/L Potassium (3.5-5.1) mEq/L Chloride (98-107) mEq/L Carbon Dioxide (23-29) mEq/L BUN (8-23) mg/dL Creatinine (0.70-1.30) mg/dL Est GFR ( Amer) (> 60) Est GFR (Non-Af Amer) (> 60) BUN/Creatinine Ratio (6-26) Glucose (70-105) mg/dL Calculated Osmolality (280-300) Calcium (8.6-10.3) mg/dL Total Bilirubin 0.9 (0.3-1.0) mg/dL Direct Bilirubin 0.5 H (0.0-0.2) mg/dL Indirect Bilirubin 0.4 (0.0-1.2) mg/dL AST 24 (13-39) Units/L ALT 11 (7-52) Units/L Alkaline Phosphatase 155 H (34-104) Units/L Troponin I (< 0.04) ng/mL B-Natriuretic Peptide 2106 H (Less than 100) pg/mL Serum Total Protein 7.0 (6.4-8.9) g/dL Albumin 3.3 L (3.5-5.7) g/dL Globulin 3.7 H (2.4-3.5) g/dL Albumin/Globulin Ratio 0.9 L (1.1-2.2) Lipase 52 (11-82) Units/L Urine Color (Yellow) Urine Clarity (Clear) Urine pH (5.0-8.0) pH Units Ur Specific [place] (1.010-1.025) Urine Protein (Neg-Trace) mg/dL Urine Glucose (UA) (Normal) mg/dL Urine Ketones (Negative) mg/dL Urine Blood (Negative) Urine Nitrite (Negative) Urine Bilirubin (Negative) Urine Urobilinogen (Normal) mg/dL Ur Leukocyte Esterase (Negative) Urine Microscopic RBC (0-3) per hpf Urine Microscopic WBC (0-3) per hpf Ur Squamous Epith Cells (None-Few) per lpf Urine Bacteria (None-Few) per hpf Hyaline Casts (None-Few) per lpf Ur Culture Indicated? (NO) Blood Type 12/21/17 12/21/17 12/21/17 Range/Units 13:32 13:32 13:33 WBC 7.8 (4.3-11.1) K/mcL RBC 3.24 L (4.19-5.50) M/mcL Hgb 10.1 L (12.9-16.9) g/dL Hct 32.1 L (37.5-50.1) % MCV 99.1 (83.0-100.0) fL MCH 31.2 (28.0-33.3) pg MCHC 31.5 L (31.6-35.5) g/dL RDW 17.5 H (11.5-14.5) % Plt Count 117 L (140-400) K/mcL MPV 11.6 (9.4-12.4) fL Immature Gran % 0.4 (0-4) % Seg Neutrophils % 79.0 % Lymphocytes % 8.4 % Monocytes % 8.4 % Eosinophils % 3.4 % Basophils % 0.4 % Neutrophils # 6.1 (1.6-8.9) K/mcL Lymphocytes # 0.7 (0.6-4.6) K/mcL Monocytes # 0.7 (0.0-1.3) K/mcL Eosinophils # 0.3 (0.0-0.6) K/mcL Basophils # 0.0 (0.0-0.2) K/mcL PT (9.4-12.1) Seconds INR APTT (26.0-36.0) Seconds Sodium 133 L (136-145) mEq/L Potassium 4.5 (3.5-5.1) mEq/L Chloride 101 (98-107) mEq/L Carbon Dioxide 22 L (23-29) mEq/L BUN 55 H (8-23) mg/dL Creatinine 2.64 H (0.70-1.30) mg/dL Est GFR ( Amer) 28 L (> 60) Est GFR (Non-Af Amer) 23 L (> 60) BUN/Creatinine Ratio 21 (6-26) Glucose 96 (70-105) mg/dL Calculated Osmolality 291 (280-300) Calcium 9.0 (8.6-10.3) mg/dL Total Bilirubin (0.3-1.0) mg/dL Direct Bilirubin (0.0-0.2) mg/dL Indirect Bilirubin (0.0-1.2) mg/dL AST (13-39) Units/L ALT (7-52) Units/L Alkaline Phosphatase (34-104) Units/L Troponin I 0.04 H* (< 0.04) ng/mL B-Natriuretic Peptide (Less than 100) pg/mL Serum Total Protein (6.4-8.9) g/dL Albumin (3.5-5.7) g/dL Globulin (2.4-3.5) g/dL Albumin/Globulin Ratio (1.1-2.2) Lipase (11-82) Units/L Urine Color Yellow (Yellow) Urine Clarity Cloudy A (Clear) Urine pH 6.0 (5.0-8.0) pH Units Ur Specific [place] 1.012 (1.010-1.025) Urine Protein Negative (Neg-Trace) mg/dL Urine Glucose (UA) Normal (Normal) mg/dL Urine Ketones Negative (Negative) mg/dL Urine Blood Negative (Negative) Urine Nitrite Negative (Negative) Urine Bilirubin Negative (Negative) Urine Urobilinogen Normal (Normal) mg/dL Ur Leukocyte Esterase Large H (Negative) Urine Microscopic RBC 0-3 (0-3) per hpf Urine Microscopic WBC 50-100 H (0-3) per hpf Ur Squamous Epith Cells None Seen (None-Few) per lpf Urine Bacteria None Seen (None-Few) per hpf Hyaline Casts None Seen (None-Few) per lpf Ur Culture Indicated? YES A (NO) Blood Type 12/21/17 Range/Units 13:43 WBC (4.3-11.1) K/mcL RBC (4.19-5.50) M/mcL Hgb (12.9-16.9) g/dL Hct (37.5-50.1) % MCV (83.0-100.0) fL MCH (28.0-33.3) pg MCHC (31.6-35.5) g/dL RDW (11.5-14.5) % Plt Count (140-400) K/mcL MPV (9.4-12.4) fL Immature Gran % (0-4) % Seg Neutrophils % % Lymphocytes % % Monocytes % % Eosinophils % % Basophils % % Neutrophils # (1.6-8.9) K/mcL Lymphocytes # (0.6-4.6) K/mcL Monocytes # (0.0-1.3) K/mcL Eosinophils # (0.0-0.6) K/mcL Basophils # (0.0-0.2) K/mcL PT (9.4-12.1) Seconds INR APTT (26.0-36.0) Seconds Sodium (136-145) mEq/L Potassium (3.5-5.1) mEq/L Chloride (98-107) mEq/L Carbon Dioxide (23-29) mEq/L BUN (8-23) mg/dL Creatinine (0.70-1.30) mg/dL Est GFR ( Amer) (> 60) Est GFR (Non-Af Amer) (> 60) BUN/Creatinine Ratio (6-26) Glucose (70-105) mg/dL Calculated Osmolality (280-300) Calcium (8.6-10.3) mg/dL Total Bilirubin (0.3-1.0) mg/dL Direct Bilirubin (0.0-0.2) mg/dL Indirect Bilirubin (0.0-1.2) mg/dL AST (13-39) Units/L ALT (7-52) Units/L Alkaline Phosphatase (34-104) Units/L Troponin I (< 0.04) ng/mL B-Natriuretic Peptide (Less than 100) pg/mL Serum Total Protein (6.4-8.9) g/dL Albumin (3.5-5.7) g/dL Globulin (2.4-3.5) g/dL Albumin/Globulin Ratio (1.1-2.2) Lipase (11-82) Units/L Urine Color (Yellow) Urine Clarity (Clear) Urine pH (5.0-8.0) pH Units Ur Specific [place] (1.010-1.025) Urine Protein (Neg-Trace) mg/dL Urine Glucose (UA) (Normal) mg/dL Urine Ketones (Negative) mg/dL Urine Blood (Negative) Urine Nitrite (Negative) Urine Bilirubin (Negative) Urine Urobilinogen (Normal) mg/dL Ur Leukocyte Esterase (Negative) Urine Microscopic RBC (0-3) per hpf Urine Microscopic WBC (0-3) per hpf Ur Squamous Epith Cells (None-Few) per lpf Urine Bacteria (None-Few) per hpf Hyaline Casts (None-Few) per lpf Ur Culture Indicated? (NO) Blood Type O POSITIVE Attestation Statement - Attestation Attestation: I examined this patient and my medical decision-making was reviewed with the Resident Physician. I agree with the documented findings, disposition and treatment plan as described except to the extent set forth below. 87 [facility]. He is a dialysis patinet with Dr. Guevara and [facility] Tuan is hearing impaired. He was originally sent here for low hemoglobin of 6, and today for our labs it is 10. Tuan although appears fluid overloaded and we will treat with lasix therapy and admit to medicine with BNP of 2100, troponin is at baseline. He does prpoduce urine .
[2017-12-21] MEDS ORDERED: Ipratropium/Albuterol Neb 3 ML IH PRN (15:38)
[2017-12-21] MEDS ORDERED: Acetaminophen 325 MG TABLET PO PRN (15:38)
[2017-12-21] MEDS ORDERED: Naloxone 0.4 MG/ML INJ IVP PRN (15:40)
[2017-12-21] MEDS ORDERED: traMADol 50 MG TABLET PO PRN (15:40)
--- NOTE | 2017-12-21 15:44 | Internal Med History&Physical ---
Date of Encounter: 12/21/17 Time of Encounter: 15:42 Internal Medicine - H&P: HPI Chief complaint: After mental status and anemia Admitted From: Emergency Dept History of present illness: Mr. King is a 87 year old male who was recently discharged from the hospital on 12/09/2017, can transfer from the [place] where his hemoglobin was noticed to be 6, the repeat hemoglobin here was 10.1, there are no signs of bleeding. Apparently the patient was confused, history heart of hearing which makes difficult to understand him. He denies any pain, chest x-ray shows congestive changes BNP is 2106, he was given a dose of IV Lasix in the emergency room, he takes metolazone and 40 mg daily of Lasix regularly. Sodium was 133 creatinine is 2.84. Troponin is 0.04, he denies any chest pain and has chronically elevated troponins. Feels mildly short of breath Past Med Surg Social Fam HX - Past Medical History Medical history: atrial fibrillation (Not on anticoagulation), cirrhosis (With regular paracenteses), CHF (Systolic CHF ejection fraction of 35%), coronary artery disease (CABG), hyperlipidemia, hypertension, liver disease, myocardial infarction, peripheral artery disease, renal disease (Chronic kidney disease stage IV), valvular heart disease, other Additional medical history: CKD IV, AMS, FALLS, HYPOKALEMIA, ASCITES, ANEMIA, PVD, ENDOCARDITIS, DUODENAL ULCERS, MONTHLY PARACENTESIS Psychiatric history: depression - Past Surgical History Surgical History: angioplasty/stent, carotid endarterectomy, coronary bypass ( CABG), pacemaker/AICD, vascular surgery, other (CAD with stents), pacemaker Additional surgical history: CABG 2004, fem pop - Social History Smoking Status: Never smoker Smokeless Tobacco Status: No Alcohol use: none Drug use: none - Family History Father Living Status: Hx Family Cardiac Disorders: Yes Hx Family Endocrine Disorder: Yes - Additional Family History Additional family history: Father with heart disease Internal Medicine - H&P: Meds Gabapentin [Neurontin] 600 mg PO HS 06/08/15 [History] Multivitamin [Flintstones] 1 tab PO DAILY 06/08/15 [History] Montelukast [Singulair] 10 mg PO HS 11/05/15 [History] Tamsulosin [Flomax] 0.4 mg PO BID 01/27/17 [History] Ferrous Sulfate 325 mg PO DAILY 04/08/17 [History] Loratadine [Claritin] 10 mg PO DAILY 04/08/17 [History] Spironolactone [Aldactone] 50 mg PO DAILY 04/08/17 [History] Isosorbide MONOnitrate (24 HR) [Imdur] 30 mg PO DAILY 06/20/17 [History] Omeprazole [PriLOSEC] 20 mg PO BIDAC #60 capsule.dr 10/21/17 [Rx] Sucralfate [Carafate] 1 gm PO QIDAC #30 udc 10/21/17 [Rx] Atorvastatin [Lipitor] 40 mg PO HS 12/07/17 [History] BuPROPion XL (24 HR) [Wellbutrin Xl] 150 mg PO DAILY 12/07/17 [History] Metoprolol [Lopressor] 50 mg PO BID 12/07/17 [History] [place]-3/Dha/Epa/Fish Oil [Fish Oil 1,000 mg Softgel] 1 cap PO DAILY 12/07/17 [ History] Furosemide [Lasix] 80 mg PO DAILY 12/21/17 [History] metOLazone [Zaroxolyn] 2.5 mg PO DAILY 12/21/17 [History] 3 Allergy/AdvReac Type Severity Reaction Status Date / Time clopidogrel [From Plavix] Allergy Itching Verified 12/21/17 15:14 Cortisone Allergy Joint Pain Verified 12/21/17 15:14 All Systems PM: A 10-system review of systems was performed and is negative for pertinent findings except as documented above in the HPI. Review of systems: No chest pain, feels weak, other systems out of the 10 reviewed were negative - Constitutional Vitals: Temp Pulse Resp BP Pulse Ox 96.8 F L 65 18 154/87 96 12/21/17 13:21 12/21/17 15:33 12/21/17 15:33 12/21/17 15:33 12/21/17 15:33 General appearance: Present: A&O X 2 Exam: Very hard of hearing Barrel chest - Head Head exam: Present: atraumatic, normocephalic - Eye Eye exam: Present: PERRL, conjuntiva pink, sclera anicteric Pupils: Present: PERRL - Neck Neck exam general surgery: Present: supple, trachea midline. Absent: lymphadenopathy - Respiratory Respiratory exam: Present: CTAB, rales (Bibasilar crackles). Absent: accessory muscle use, rhonchi, wheezes - Cardiovascular Cardiovascular exam: Present: RRR, +S1, +S2. Absent: diastolic murmur, gallop, rubs, systolic murmur - GI/Abdominal GI/Abdominal exam: Present: normal bowel sounds, soft, no peritoneal signs. Absent: distended, tenderness - Extremities Exam Extremities exam: Present: warm, radial pulses palpable and symmetrical. Absent : calf tenderness, cyanotic, pedal edema - Neurological Exam Neurological exam: Present: CN II-XII intact, no focal deficits. Absent: oriented X3 (Guerrero catheter in place), pronater drift, facial droop, speech deficit - Skin Skin exam: Present: dry, intact Internal Med - H&P Results - Labs CBC & Chem 7: 12/21/17 13:32 12/21/17 13:32 Labs: Short CBC 12/21/17 Range/Units 13:32 WBC 7.8 (4.3-11.1) K/mcL Hgb 10.1 L (12.9-16.9) g/dL Hct 32.1 L (37.5-50.1) % Plt Count 117 L (140-400) K/mcL Neutrophils # 6.1 (1.6-8.9) K/mcL BMP 12/21/17 13:32 Sodium 133 L Potassium 4.5 Chloride 101 Carbon Dioxide 22 L BUN 55 H Creatinine 2.64 H Glucose 96 Calcium 9.0 Cardiac Enzymes 12/21/17 Range/Units 13:32 Troponin I 0.04 H* (< 0.04) ng/mL Liver Function 12/21/17 Range/Units 13:32 Total Bilirubin 0.9 (0.3-1.0) mg/dL Direct Bilirubin 0.5 H (0.0-0.2) mg/dL AST 24 (13-39) Units/L ALT 11 (7-52) Units/L Alkaline Phosphatase 155 H (34-104) Units/L Albumin 3.3 L (3.5-5.7) g/dL Urine 12/21/17 Range/Units 13:33 Urine Color Yellow (Yellow) Urine Clarity Cloudy A (Clear) Urine pH 6.0 (5.0-8.0) pH Units Ur Specific [place] 1.012 (1.010-1.025) Urine Protein Negative (Neg-Trace) mg/dL Urine Glucose (UA) Normal (Normal) mg/dL - Impressions ITS Impressions Chest X-Ray 12/21/17 13:23 IMPRESSION: 1. Mild vascular congestive changes. 2. Low lung volumes with under aeration of the lung bases. D/ / 12/21/2017 14:33:20 Prakash Spears MD / ofelia Interpreting Provider: Prakash Spears MD - Assessment and plan (1) Congestive heart failure (CHF) Current Visit: Yes Status: Chronic Assessment and plan: Acute systolic CHF exacerbation Continue IV Lasix, strict I's and O's, daily weight May resume metolazone once he gets discharged Gets a monthly paracentesis Omeprazole for GI prophylaxis and subcutaneous tenderness heparin for DVT prophylaxis. The patient will be admitted for observation. Full code. Time spent on this admission 40 minutes Repeat CBC in the morning Qualifiers: Heart failure type: systolic Heart failure chronicity: acute on chronic Qualified Code(s): I50.23 - Acute on chronic systolic (congestive) heart failure (2) CKD (chronic kidney disease) stage 4, GFR 15-29 ml/min Current Visit: No Status: Acute Assessment and plan: Stable (3) Elevated troponin Current Visit: No Status: Acute Assessment and plan: Chronically elevated troponins Denies any chest pain (4) UTI (urinary tract infection) Current Visit: No Status: Acute Assessment and plan: Levaquin due to prior sensitivities Qualifiers: Urinary tract infection type: acute cystitis Hematuria presence: without hematuria Qualified Code(s): N30.00 - Acute cystitis without hematuria (5) Atrial fibrillation Current Visit: No Status: Chronic Assessment and plan: Continue metoprolol Qualifiers: Atrial fibrillation type: paroxysmal Qualified Code(s): I48.0 - Paroxysmal atrial fibrillation (6) BPH (benign prostatic hypertrophy) with urinary retention Current Visit: No Status: Chronic Assessment and plan: Continue Flomax - Time Spent With Patient Total time spent is greater than 50% in coordination of care (as documented) at patient's floor/unit and/or counseling patient:
[2017-12-21] MEDS ORDERED: Levofloxacin 500 MG/100 ML 500 MG/100 ML BAG IVPB ONE (16:00)
--- NOTE | 2017-12-21 16:01 | Nephrology Consult Note ---
<Marisela Huerta - Last Filed: 12/21/17 16:29> Date of Encounter: 12/21/17 Time of Encounter: 15:52 Assessment and Plan (1) CKD (chronic kidney disease), stage III Status: Chronic Avoid nephrotoxins and renal dose all medications. Scr 2.64 and GFR is 23. CKD labs are all up to date except PCR, which I ordered. (2) Congestive heart failure (CHF) Status: Chronic Per primary. Qualifiers: Heart failure type: systolic Heart failure chronicity: acute on chronic Qualified Code(s): I50.23 - Acute on chronic systolic (congestive) heart failure History of Present Illness - Reason for Consult Consult date: 12/21/17 Chronic Kidney Disease - Chief Complaint abnormal labs - History of Present Illness Mr. King is a frail 87 year old with PMH: CKD Stage IV, chronic edema , liver disease and hyponatremia. He does live alone, and has a home health nurse check on him when she "can". He is often a poor historian, but seems alert today. He had a recent d/c from the hospital 12/09/17 for elevated ammonia. He was at the [facility] for some lab work and initial Hgb was 6, but the repeat is 10. There was a little confusion as to whether the patient was on HD or not. He does not have access and is not on HD at this time. Baseline GFR is approximately 22. Dr. Owen is his naphthalene operator. Will continue to monitor renal function. It appears he is a little improved from his baseline. Past Med Surg Social Fam HX - Past Medical History Medical history: atrial fibrillation (Not on anticoagulation), cirrhosis (With regular paracenteses), CHF (Systolic CHF ejection fraction of 35%), coronary artery disease (CABG), hyperlipidemia, hypertension, liver disease, myocardial infarction, peripheral artery disease, renal disease (Chronic kidney disease stage IV), valvular heart disease, other Additional medical history: CKD IV, AMS, FALLS, HYPOKALEMIA, ASCITES, ANEMIA, PVD, ENDOCARDITIS, DUODENAL ULCERS, MONTHLY PARACENTESIS Psychiatric history: depression - Past Surgical History Surgical History: angioplasty/stent, carotid endarterectomy, coronary bypass ( CABG), pacemaker/AICD, vascular surgery, other (CAD with stents), pacemaker Additional surgical history: CABG 2004, fem pop - Social History Smoking Status: Never smoker Smokeless Tobacco Status: No Alcohol use: none Drug use: none - Family History Father Living Status: Hx Family Cardiac Disorders: Yes Hx Family Endocrine Disorder: Yes Medications and Allergies Gabapentin [Neurontin] 600 mg PO HS 06/08/15 [History] Multivitamin [Flintstones] 1 tab PO DAILY 06/08/15 [History] Montelukast [Singulair] 10 mg PO HS 11/05/15 [History] Tamsulosin [Flomax] 0.4 mg PO BID 01/27/17 [History] Ferrous Sulfate 325 mg PO DAILY 04/08/17 [History] Loratadine [Claritin] 10 mg PO DAILY 04/08/17 [History] Spironolactone [Aldactone] 50 mg PO DAILY 04/08/17 [History] Isosorbide MONOnitrate (24 HR) [Imdur] 30 mg PO DAILY 06/20/17 [History] Omeprazole [PriLOSEC] 20 mg PO BIDAC #60 capsule. 10/21/17 [Rx] Sucralfate [Carafate] 1 gm PO QIDAC #30 udc 10/21/17 [Rx] Atorvastatin [Lipitor] 40 mg PO HS 12/07/17 [History] BuPROPion XL (24 HR) [Wellbutrin Xl] 150 mg PO DAILY 12/07/17 [History] Metoprolol [Lopressor] 50 mg PO BID 12/07/17 [History] [place]-3/Dha/Epa/Fish Oil [Fish Oil 1,000 mg Softgel] 1 cap PO DAILY 12/07/17 [ History] metOLazone [Zaroxolyn] 2.5 mg PO DAILY 12/21/17 [History] Furosemide [Lasix] 40 mg PO BID #60 tab 12/23/17 [Rx] 3 Allergy/AdvReac Type Severity Reaction Status Date / Time clopidogrel [From Plavix] Allergy Itching Verified 12/21/17 15:14 Cortisone Allergy Joint Pain Verified 12/21/17 15:14 Review of Systems Constitutional: no chills, no fatigue, no fever(s), no weakness Cardiovascular: no chest pain at rest Respiratory: no cough Gastrointestinal: tenesmus, no diarrhea, no nausea, no vomiting Exam - Vital Signs Vital signs: Initial Vital Signs Temp Pulse Resp BP Pulse Ox 96.8 F L 64 20 135/69 97 12/21/17 13:21 12/21/17 13:21 12/21/17 13:21 12/21/17 13:21 12/21/17 13:21 - General Appearance General appearance: frail EENT: ATNC, hearing intact ([place]), vision intact Neck: supple Respiratory: clear Cardiology: edema (Trace BLE), normal S1, normal S2 Gastrointestinal: normoactive bowel sounds, no tenderness, no guarding Integumentary: no rash, warm and dry (Alert to self.) Neurologic: alert and oriented x3 (Alert to self/location.) Psychiatric: mood/affect appropriate, cooperative Results - Lab Results 12/21/17 13:32 12/21/17 13:32 Most recent lab results Calcium 9.0 mg/dL (8.6-10.3) 12/21/17 13:32 Consult Discharge Plan - Plan Referrals: Roberta Berrios MD [Primary Care Provider] - Prescriptions: Furosemide [Lasix] 40 mg PO BID #60 tab <Maxim Chao - Last Filed: 12/28/17 07:04> Date of Encounter: 12/21/17 Exam - Vital Signs Vital signs: Initial Vital Signs Temp Pulse Resp BP Pulse Ox 96.8 F L 64 20 135/69 97 12/21/17 13:21 12/21/17 13:21 12/21/17 13:21 12/21/17 13:21 12/21/17 13:21 Results - Lab Results 12/23/17 06:18 12/23/17 06:18 Most recent lab results Calcium 8.7 mg/dL (8.6-10.3) 12/23/17 06:18 Urine Creatinine 50 mg/dL 12/21/17 13:33 Urine Total Protein 10 mg/dL (1-14) 12/21/17 13:33 - Attending Attestation I examined this patient and my medical decision-making was reviewed with the Resident Physician. I agree with the documented findings, disposition and treatment plan as described except to the extent set forth below. Pt seen and examined and in summary; 87 y o male with stage [address] Owen last seen [facility] 6 but on repeat was 10. Renal consulted from the ER as they assumed pt was on dialysis but on review of notes from Dr Owen and speaking withh pt, this was not accurate. Pt was in fact at baseline renal function with GFR in the 20s. No dialysis required but will happily provide supportive care as needed.
--- NOTE | 2017-12-21 16:58 | Electrocardiograph Report ---
[place] [id number] Test Date: 2017-12-21 Pat Name: Roman King Department: 103 Room: 2A Gender: M Manager Of Health: : 1930 Requested By: Rosaura Ramirez Order Number: [id number] Reading MD: Erin Cleaning Measurements Intervals [place] Rate: 64 P: -77 PA: 141 QRS: -69 QRSD: 194 T: 99 QT: 476 QTc: 485 Interpretive Statements ELECTRONIC ATRIAL PACEMAKER ELECTRONIC VENTRICULAR PACEMAKER ABNORMAL RHYTHM ECG Electronically Signed On 12-21-2017 16:56:30 EDT by Erin Cleaning
[2017-12-21 17:10] LABS: Protein/Creatinine Ratio,Urine 0.2 mg/mg (0.00-0.20)
[2017-12-21] MEDS: *HR* Heparin 5,000 UNIT/ML VIAL SQ SCH (18:11)
[2017-12-21] MEDS: Gabapentin 300 MG CAPSULE PO SCH (22:33)
[2017-12-21] MEDS: Furosemide 40 MG/4 ML VIAL IVP SCH (22:34)
[2017-12-22] MEDS: *HR* Heparin 5,000 UNIT/ML VIAL SQ SCH ×2 (06:06→17:50)
[2017-12-22 07:40] LABS: Calcium 8.7 mg/dL (8.6-10.3); Potassium 4.5 mEq/L (3.5-5.1)
[2017-12-22] MEDS: BuPROPion XL (24 HR) 150 MG TABLET PO SCH (08:16)
[2017-12-22] MEDS: Furosemide 40 MG/4 ML VIAL IVP SCH ×2 (08:16→17:51)
[2017-12-22] MEDS: Isosorbide MONOnitrate (24 HR) 30 MG TAB.ER.24H PO SCH (08:16)
--- NOTE | 2017-12-22 12:31 | Internal Med Progress Note ---
Date of Encounter: 12/22/17 Time of Encounter: 12:30 - Assessment and plan (1) Congestive heart failure (CHF) Current Visit: Yes Status: Chronic Assessment and plan: Acute systolic CHF exacerbation Continue IV Lasix, strict I's and O's, daily weight May resume metolazone once he gets discharged Qualifiers: Heart failure type: systolic Heart failure chronicity: acute on chronic Qualified Code(s): I50.23 - Acute on chronic systolic (congestive) heart failure (2) BPH (benign prostatic hypertrophy) with urinary retention Current Visit: No Status: Chronic Assessment and plan: Continue Flomax (3) UTI (urinary tract infection) Current Visit: No Status: Acute Assessment and plan: Continue ampicillin Qualifiers: Urinary tract infection type: acute cystitis Hematuria presence: without hematuria Qualified Code(s): N30.00 - Acute cystitis without hematuria (4) CKD (chronic kidney disease) stage 4, GFR 15-29 ml/min Current Visit: No Status: Acute Assessment and plan: Stable (5) Elevated troponin Current Visit: No Status: Acute Assessment and plan: Chronically elevated troponins Denies any chest pain (6) Atrial fibrillation Current Visit: No Status: Chronic Assessment and plan: Continue metoprolol Qualifiers: Atrial fibrillation type: paroxysmal Qualified Code(s): I48.0 - Paroxysmal atrial fibrillation - Time Spent With Patient Total time spent is greater than 50% in coordination of care (as documented) at patient's floor/unit and/or counseling patient: - Subjective Interval history: No acute events overnight - Constitutional Vitals: Temp Pulse Resp BP Pulse Ox 98.3 F 60 20 111/62 95 12/22/17 11:04 12/22/17 11:04 12/22/17 11:04 12/22/17 11:04 12/22/17 11:04 General appearance: Present: A&O X 2 - Head Head exam: Present: atraumatic, normocephalic - Eye Eye exam: Present: PERRL, conjuntiva pink, sclera anicteric Pupils: Present: PERRL - Neck Neck exam general surgery: Present: supple, trachea midline. Absent: lymphadenopathy - Respiratory Respiratory exam: Present: CTAB. Absent: accessory muscle use, rales, rhonchi, wheezes - Cardiovascular Cardiovascular exam: Present: RRR, +S1, +S2. Absent: diastolic murmur, gallop, rubs, systolic murmur - GI/Abdominal GI/Abdominal exam: Present: normal bowel sounds, soft, no peritoneal signs. Absent: distended, tenderness - Extremities Exam Extremities exam: Present: warm, radial pulses palpable and symmetrical. Absent : calf tenderness, cyanotic, pedal edema - Neurological Exam Neurological exam: Present: CN II-XII intact, oriented X3, no focal deficits. Absent: pronater drift, facial droop, speech deficit - Skin Skin exam: Present: dry, intact Internal Medicine: Result - Labs CBC & Chem 7: 12/21/17 13:32 12/22/17 06:41 Labs: BMP 12/22/17 06:41 Sodium 133 L Potassium 4.5 Chloride 101 Carbon Dioxide 23 BUN 56 H Creatinine 2.66 H Glucose 92 Calcium 8.7 - ABG Interpretation ABG results: PT/INR, D-dimer PT 14.0 Seconds (9.4-12.1) H 12/21/17 13:32 Consult Discharge Plan - Plan Referrals: Roberta Berrios MD [Primary Care Provider] -
[2017-12-22] MEDS: Ampicillin 1,000 MG in 0.9 % Sodium Chloride Mini Bag 100 ML IVPB SCH ×2 (12:33→17:51)
[2017-12-22] MEDS: Gabapentin 300 MG CAPSULE PO SCH (20:30)
[2017-12-23] MEDS: Ampicillin 1,000 MG in 0.9 % Sodium Chloride Mini Bag 100 ML IVPB SCH ×2 (00:43→05:07)
[2017-12-23] MEDS: *HR* Heparin 5,000 UNIT/ML VIAL SQ SCH (05:09)
[2017-12-23 06:49] LABS: Basophils % 0.3 %; Eosinophils # 0.2 K/mcL (0.0-0.6); Eosinophils % 3.4 %; Hemoglobin 9.9 g/dL (12.9-16.9); Immature Granulocytes % 0.6 % (0-4); Lymphocytes # 0.6 K/mcL (0.6-4.6); Lymphocytes % 9.4 %; Mean Corpuscular HGB Conc 34.1 g/dL (31.6-35.5); Mean Corpuscular Volume 96.7 fL (83.0-100.0); Mean Platelet Volume 11.5 fL (9.4-12.4); Monocytes # 0.6 K/mcL (0.0-1.3); Monocytes % 8.5 %; Neutrophils # 5.3 K/mcL (1.6-8.9); Platelet Count 115 K/mcL (140-400); Red Cell Distribution Width 17.3 % (11.5-14.5); Segmented Neutrophils % 77.8 %
[2017-12-23 07:10] LABS: Calcium 8.7 mg/dL (8.6-10.3); Potassium 4.3 mEq/L (3.5-5.1)
[2017-12-23] MEDS: Furosemide 40 MG/4 ML VIAL IVP SCH (10:29)
[2017-12-23] MEDS: Isosorbide MONOnitrate (24 HR) 30 MG TAB.ER.24H PO SCH (10:29)
[2017-12-23] MEDS: BuPROPion XL (24 HR) 150 MG TABLET PO SCH (10:30)
--- NOTE | 2017-12-23 11:38 | Discharge Summary ---
Orders not resulted at time of discharge: Pending orders 12/24/17 04:00 Basic Metabolic Panel AM 0400 CBC [Complete Blood Count] [HEME] AM 0400 12/25/17 04:00 Basic Metabolic Panel AM 0400 CBC [Complete Blood Count] [HEME] AM 04012/26/17 04:00 Basic Metabolic Panel AM 0400 CBC [Complete Blood Count] [HEME] AM 0400 12/27/17 04:00 Basic Metabolic Panel AM 0400 CBC [Complete Blood Count] [HEME] AM 0400 12/28/17 04:00 Basic Metabolic Panel AM 0400 CBC [Complete Blood Count] [HEME] AM 0400 Date of Encounter: 12/23/17 Time of Encounter: 11:30 - Discharge Diagnosis (1) Congestive heart failure (CHF) Priority: Primary Status: Chronic Assessment and Plan: 87 year old male who was recently discharged from the hospital on 12/09/2017 with pmh of systolic CHF presented with fatigue and shortness of breath. Last echo showed an Ef of 35%. He was started on diuresis with IV lasix BID with resolution of his shortness of breath. With a sooner than anticipated recovery, he was discharged back to the shelter on BID lasix Qualifiers: Heart failure type: systolic Heart failure chronicity: acute on chronic Qualified Code(s): I50.23 - Acute on chronic systolic (congestive) heart failure (2) BPH (benign prostatic hypertrophy) with urinary retention Priority: Secondary Status: Chronic Assessment and Plan: Continue Flomax (3) UTI (urinary tract infection) Priority: Secondary Status: Acute Qualifiers: Urinary tract infection type: acute cystitis Hematuria presence: without hematuria Qualified Code(s): N30.00 - Acute cystitis without hematuria (4) CKD (chronic kidney disease) stage 4, GFR 15-29 ml/min Priority: Secondary Status: Acute (5) Elevated troponin Priority: Secondary Status: Acute (6) Atrial fibrillation Priority: Secondary Status: Chronic Qualifiers: Atrial fibrillation type: paroxysmal Qualified Code(s): I48.0 - Paroxysmal atrial fibrillation Hospital course: Mr. King is a 87 year old male - Time Spent with Patient Total time spent providing and/or coordinating discharge services: - Discharge Medications Prescriptions: Furosemide [Lasix] 40 mg PO BID #60 tab Home Medications: Gabapentin [Neurontin] 600 mg PO HS 06/08/15 [History] Multivitamin [Flintstones] 1 tab PO DAILY 06/08/15 [History] Montelukast [Singulair] 10 mg PO HS 11/05/15 [History] Tamsulosin [Flomax] 0.4 mg PO BID 01/27/17 [History] Ferrous Sulfate 325 mg PO DAILY 04/08/17 [History] Loratadine [Claritin] 10 mg PO DAILY 04/08/17 [History] Spironolactone [Aldactone] 50 mg PO DAILY 04/08/17 [History] Isosorbide MONOnitrate (24 HR) [Imdur] 30 mg PO DAILY 06/20/17 [History] Omeprazole [PriLOSEC] 20 mg PO BIDAC #60 capsule.dr 10/21/17 [Rx] Sucralfate [Carafate] 1 gm PO QIDAC #30 udc 10/21/17 [Rx] Atorvastatin [Lipitor] 40 mg PO HS 12/07/17 [History] BuPROPion XL (24 HR) [Wellbutrin Xl] 150 mg PO DAILY 12/07/17 [History] Metoprolol [Lopressor] 50 mg PO BID 12/07/17 [History] [place]-3/Dha/Epa/Fish Oil [Fish Oil 1,000 mg Softgel] 1 cap PO DAILY 12/07/17 [ History] metOLazone [Zaroxolyn] 2.5 mg PO DAILY 12/21/17 [History] Furosemide [Lasix] 40 mg PO BID #60 tab 12/23/17 [Rx] Allergies/Adverse Reactions: 3 Allergy/AdvReac Type Severity Reaction Status Date / Time clopidogrel [From Plavix] Allergy Itching Verified 12/21/17 15:14 Cortisone Allergy Joint Pain Verified 12/21/17 15:14 Date of admission: 12/21/17 15:37 Primary care physician: Roberta Berrios, Consults: 12/22/17 12:50 Consult to Grain [employer] [CONS] Routine Reason for Consult: discharge planning - Constitutional Vitals: Temp Pulse Resp BP Pulse Ox 97.4 F L 67 20 123/71 96 12/23/17 08:04 12/23/17 08:04 12/23/17 08:04 12/23/17 08:04 12/23/17 08:04 General appearance: Present: A&O X 2 - Head Head exam: Present: atraumatic, normocephalic - Eye Eye exam: Present: PERRL, conjuntiva pink, sclera anicteric Pupils: Present: PERRL - Neck Neck exam general surgery: Present: supple, trachea midline. Absent: lymphadenopathy - Respiratory Respiratory exam: Present: CTAB. Absent: accessory muscle use, rales, rhonchi, wheezes - Cardiovascular Cardiovascular exam: Present: RRR, +S1, +S2. Absent: diastolic murmur, gallop, rubs, systolic murmur - GI/Abdominal GI/Abdominal exam: Present: normal bowel sounds, soft, no peritoneal signs. Absent: distended, tenderness - Extremities Exam Extremities exam: Present: warm, radial pulses palpable and symmetrical. Absent : calf tenderness, cyanotic, pedal edema - Neurological Exam Neurological exam: Present: CN II-XII intact, oriented X3, no focal deficits. Absent: pronater drift, facial droop, speech deficit - Skin Skin exam: Present: dry, intact - Patient Status Disposition: Transfer SNF Condition: Good - Discharge Instructions Follow Up With: Roberta Berrios MD [Primary Care Provider] -
[2017-12-23 11:49] VITALS: BP 133/78
--- NOTE | 2017-12-23 12:34 | Physician Discharge Referral ---
- Diagnosis (1) Congestive heart failure (CHF) Priority: Primary Status: Chronic (2) BPH (benign prostatic hypertrophy) with urinary retention Status: Chronic (3) UTI (urinary tract infection) Status: Acute (4) CKD (chronic kidney disease) stage 4, GFR 15-29 ml/min Status: Acute (5) Elevated troponin Status: Acute (6) Atrial fibrillation Status: Chronic - Transfer Medications Prescriptions: Furosemide [Lasix] 40 mg PO BID #60 tab Home Medications: Gabapentin [Neurontin] 600 mg PO HS 06/08/15 [History] Multivitamin [Flintstones] 1 tab PO DAILY 06/08/15 [History] Montelukast [Singulair] 10 mg PO HS 11/05/15 [History] Tamsulosin [Flomax] 0.4 mg PO BID 01/27/17 [History] Ferrous Sulfate 325 mg PO DAILY 04/08/17 [History] Loratadine [Claritin] 10 mg PO DAILY 04/08/17 [History] Spironolactone [Aldactone] 50 mg PO DAILY 04/08/17 [History] Isosorbide MONOnitrate (24 HR) [Imdur] 30 mg PO DAILY 06/20/17 [History] Omeprazole [PriLOSEC] 20 mg PO BIDAC #60 capsule.dr 10/21/17 [Rx] Sucralfate [Carafate] 1 gm PO QIDAC #30 udc 10/21/17 [Rx] Atorvastatin [Lipitor] 40 mg PO HS 12/07/17 [History] BuPROPion XL (24 HR) [Wellbutrin Xl] 150 mg PO DAILY 12/07/17 [History] Metoprolol [Lopressor] 50 mg PO BID 12/07/17 [History] [place]-3/Dha/Epa/Fish Oil [Fish Oil 1,000 mg Softgel] 1 cap PO DAILY 12/07/17 [ History] metOLazone [Zaroxolyn] 2.5 mg PO DAILY 12/21/17 [History] Furosemide [Lasix] 40 mg PO BID #60 tab 12/23/17 [Rx] Allergies/Adverse Reactions: 3 Allergy/AdvReac Type Severity Reaction Status Date / Time clopidogrel [From Plavix] Allergy Itching Verified 12/21/17 15:14 Cortisone Allergy Joint Pain Verified 12/21/17 15:14 - Respiratory Orders Smoking Cessation: Smoking cessation has been advised. For more information, call the [place] Tobacco Quit Line at 0-370-XEBX-NOW. - Mobility Orders Ambulate - Rehabiliation Orders Rehab Potential: Good - Diet Orders Cardiac CERTIFICATION: I certify that the transfer of the above named patient to an Extended Care Facility is necessary for the continuing treatment of the diagnosis listed. The above information is true and accurate reflection of patient's current condition. Confidential - Redisclosure prohibited without a patient's written consent.
[2017-12-23] MEDS ORDERED: Amoxicillin 250 MG CHEWABLE TABLET PO SCH (15:00)
[2017-12-23] MEDS ORDERED: Levofloxacin 250 MG/50 ML 250 MG/50 ML BAG IVPB SCH (16:00)
== END 2017-12-23 15:13 ==
LOC: EMEROO 13:19 → 2ANU 13:19
PROVIDERS: ADMIT Internal Medicine Hematology & Oncology; ATTEND Internal Medicine Hematology & Oncology